=== PATIENT | male | born 1960 | race Caucasian/White ===

== ENCOUNTER 2016-10-09 12:13 | Inpatient (IN) | payer MEDICAID ==
[~2016-10-09] VITALS: Ht 182.9 cm; Wt 94.3 kg
[~2016-10-09 12:13] MED LIST: AMIO200T2 PO; ASPI-482 PO; DIGO125T PO; LISI-338 PO; METF500T4 PO; METH4TAB6 PO; METO100T2 PO; METO50TA10 PO; SPIR25TA3 PO; TIZA4TAB PO; insulin 70/30 SQ
--- NOTE | 2016-10-09 13:21 | RAD ---
Left rib series with single view chest 10/09/2016 at 1254 hours Indication: Fall and rib pain Comparison: Chest radiograph 09/25/2016 Technique: Single view of the chest and 4 views of the left ribs are provided. Findings: Median sternotomy changes are present. Cardiac valvular prosthesis is noted. Cardiomediastinal silhouette is within normal limits. No pleural effusions, pulmonary vascular congestion or pneumothorax. The lungs are clear. Mildly displaced acute rib fractures involving the anterior left eighth and ninth ribs. Impression: Mildly displaced acute rib fractures involving anterior left eighth and ninth ribs. No pneumothorax.
--- NOTE | 2016-10-09 13:24 | RAD ---
Thoracic spine radiograph 10/09/2016 at 1258 hours Indication: Trauma, fall Comparison: None available Technique: 3 views of the thoracic spine are provided. Findings: Alignment of the thoracic spine is normal. There is minimal height loss involving the suspected T6 vertebral body. Visualized portions of the lungs are clear. Impression: Minimal height loss involving suspected T6 vertebral body, suspicious for a superior endplate compression deformity of uncertain chronicity. Recommend correlation with site of point tenderness.
[2016-10-09] MEDS ORDERED: MORPHINE SULFATE 4 MG/ML DISP.SYRIN. IV/SQ PRN (14:00)
--- NOTE | 2016-10-09 14:28 | ACF ---
Admit Criteria Forms Admit Criteria Forms Admit Criteria Forms MUSCULOSKELETAL DISEASE GRG Clinical Indications for Admission to Inpatient Care (Place 'X' for any and all applicable criteria): Hospital admission is needed for appropriate care of the patient because of 1 or more of the following: [X ]I. Fracture, dislocation, or other musculoskeletal injury requiring inpatient care(medical) as indicated by 1 or more of the following(4)(5)(6)(7) [ ]a) Vertebral fracture requiring observation for instability or neurologic compromise (8) [ ]b) Compartment syndrome (proven or cannot be ruled out during observation level of care) (9) [ ]c) Limb-threatening injury [ ]d) Major injury requiring inpatient stabilization such as traction initiation or external fixation before internal fixation or closure of complex or open fracture [ ]e) Major injury requiring inpatient treatment after emergency or observation level care (as appropriate) [X ]f) Severe pain requiring acute inpatient management [ ]g) Injury with suspicion of abuse or neglect (eg., child, dependent elderly) [ ]II. Newly diagnosed or suspected bone, joint, or orthopedic device infection (e.g., osteomyelitis, septic arthritis) needing 1 or more of the following(1)(2)(3) [ ]a) IV antibiotics that cannot be initiated in other than inpatient setting (e.g., patient too unstable or home infusion not available) [ ]b) Device removal or replacement [ ]c) Bone or soft tissue debridement [ ]d) Joint drainage (drain placement or repetitive aspirations) [ ]III. Severe rheumatologic disease (e.g., systemic lupus erythematosus, rheumatoid arthritis) with complications or comorbidities (Also use Optimal Recovery Care Criteria or General Recovery Criteria as appropriate on the basis of predominant condition), including 1 or more of the following( 10)(11)(12)(13) [ ]a) Severe infection (e.g., [employer]GEMENT infection, sepsis) (14) [ ]b) Respiratory complications, including 1 or more of the following : [ ]i) Pleural effusion with respiratory compromise [ ]ii) Pulmonary hypertension with congestive failure [ ]iii) Respiratory failure [ ]iv) Pulmonary hemorrhage (15) [ ]c) Hematologic disease, including 1 or more of the following: [ ]i) Coagulopathy with bleeding [ ]ii) Thrombosis with hypercoagulable state [ ]iii) Thrombotic thrombocytopenic purpura [ ]d) Cerebritis with seizures, psychosis, or other severe abnormalities [ ]e) Vertebral destruction with monitoring needed for cervical myelopathy& possible respiratory compromise [ ]f) Exacerbation that requires inpatient treatment (e.g., intravenous immunosuppression) (16) [ ]g) Acute renal failure [ ]h) Cerebritis with seizures, psychosis, Altered mental status, or other neurologic abnormalities [ ]i) Pericardial effusion with tamponade [ ]j) Vertebral destruction, with monitoring needed for cervical myelopathy and possible respiratory compromise [ ]IV. Severe vasculitis with complications or comorbidities (Also use Optimal Recovery Care Criteria General Recovery Criteria as appropriate on the basis of predominant condition), including 1 or more of the following(11)(12)(17)(18)(19)(20) [ ]a) Exacerbation that requires inpatient treatment (e.g., intravenous immunosuppression) (19)(21) [ ]b) Pulmonary hemorrhage (15) [ ]c) [employer] vasculitis with seizures, psychosis, Altered mental status that is severe or persistent, or other severe abnormalities (22) [ ]d) Cerebral infarction [ ]e) Gastrointestinal ischemia [ ]f) Gangrene or threatened amputation [ ]g) Renal failure (16) [ ]h) Other significant complications of vasculitis ( eg., tissue or organ ischemia, organ dysfunction ) [ ]V. Severe myopathy as indicated by 1 or more of the following (28)(29) [ ]a) New onset of airway compromise or inability to swallow [ ]b) Respiratory deterioration with observation needed for impending respiratory failure [ ]c) Exacerbation that requires inpatient treatment (e.g., intravenous immunosuppression) [ ]. Severe crystal gout (arthropathy) indicated by 1 or more of the following (23)(24) [ ]a) Severe pain requiring acute inpatient management [ ]b) Exacerbation that requires inpatient treatment (e.g., intravenous treatment) [ ]VII.Rhabdomyolysis and 1 or more of the following (25)(26)(27) [ ]a) Acute renal failure [ ]b) Need for intravenous hydration after emergency or observation level care (as appropriate) [ ]c) Inability to maintain oral hydration [ ]d) Change in mental status [ ]e) Electrolyte abnormality that remains after emergency or observation level care (as appropriate) [ ]VIII Post amputation complication, as indicated by ANY ONE of the following [ ]a) Infection [ ]b) Dehiscence [ ]c) Myodesis failure [ ]IX. Severe pain requiring acute inpatient management due to musculoskeletal condition [ ]X. Musculoskeletal Disease and ALL of the following: [ ]a) Symptom or finding for which emergency and observation care have failed or are not considered appropriate (Use General Criteria: Observation Care as appropriate) [ ]b) Presence of ANY ONE of the following [ ]i) A General Admission Criteria [ ]ii) A Pediatric General Admission Criteria The original [email or web address] content created by [facility] has been revised. The portions of the content which have been revised are identified through the use of italic text or in bold, and [facility] has neither reviewed nor approved the modified material. All other unmodified content is copyright [facility]. Please see references footnoted in the original [email or web address] edition 2016 AUDRA MINA Oct 09, 2016 14:28
[2016-10-09 14:44] LABS: BASO # 0.1 x10^3/uL (0.0-0.2); BASO % 0 % (0-3); EOS % 2 % (0-3); HEMATOCRIT 50.9 % (39.0-53.0); LYMPH # 1.7 x10^3/uL (1.0-4.8); LYMPH % 13 % (24-48); MEAN CORPUSCULAR HEMOGLOBIN 31 pg (25-35); MEAN CORPUSCULAR HGB CONC 33 g/dL (31-37); MEAN CORPUSCULAR VOLUME 92 fL (79-100); MONO % 6 % (0-9); NEUT % 79 % (31-73); PLATELET COUNT 255 x10^3/uL (140-400); RED BLOOD COUNT 5.53 x10^6/uL (4.30-5.70); RED CELL DISTRIBUTION WIDTH 14.6 % (11.5-14.5); WHITE BLOOD COUNT 13.1 x10^3/uL (4.0-11.0)
[2016-10-09] MEDS ORDERED: ONDANSETRON PF 4 MG/2 ML VIAL. IV PRN (15:00)
[2016-10-09] MEDS ORDERED: ACETAMINOPHEN 325 MG TABLET. PO PRN (15:00)
[2016-10-09 15:04] LABS: CALCIUM 8.8 mg/dL (8.5-10.1); CREATININE 1.3 mg/dL (0.7-1.3); GFR 57.5; POTASSIUM 5.5 mmol/L (3.5-5.1)
[2016-10-09 15:10] LABS: ALBUMIN/GLOBULIN RATIO 0.8 (1.0-1.7); TOTAL BILIRUBIN 0.4 mg/dL (0.2-1.0); TOTAL PROTEIN 6.6 g/dL (6.4-8.2)
[2016-10-09] MEDS: MORPHINE SULFATE 4 MG/ML DISP.SYRIN. IV PRN ×4 (16:45→23:34)
--- NOTE | 2016-10-09 17:20 | PHYS DOC ---
Past Medical History Past Medical History: CAD, Diabetes-Type II, Hypertension, [place] Past Surgical History: Coronary Bypass Surgery, Tonsillectomy Alcohol Use: None Drug Use: Marijuana Adult General Chief Complaint Chief Complaint: RIB PAIN HPI HPI Patient is a 55 year old male who presents with rib pain after a fall. The patient states he slipped & fell in the bathtub today. No lightheadedness or syncope, no head trauma or loss of consciousness. He complains of left sided rib pain worse with deep breathing but not having shortness of breath. Also complains of upper back pain. Review of Systems Review of Systems Constitutional: Denies fever or chills Eyes: Denies change in visual acuity HENT: Denies nasal congestion or sore throat Respiratory: Denies cough or shortness of breath Cardiovascular: Denies chest pain GI: Denies abdominal pain, nausea, vomiting, or diarrhea : Denies dysuria or hematuria Musculoskeletal: Reports rib pain and back pain Integument: Denies rash or skin lesions Neurologic: Denies headache, focal weakness or sensory changes Allergies Allergies Allergies Coded Allergies Type Severity Reaction Last Updated Verified No Known Drug Allergies 09/25/16 No Physical Exam Physical Exam Constitutional: Well developed, well nourished, no acute distress, non-toxic appearance. HENT: Normocephalic, atraumatic, bilateral external ears normal, oropharynx moist, nose normal. Eyes: PERRLA, EOMI, conjunctiva normal, no discharge. Neck: supple, no stridor. no midline c-spine tenderness. Cardiovascular: RRR, no murmurs, no edema. Lungs & Thorax: LCTAB, no wheezing, no respiratory distress. Left anterior/ lateral chest wall tenderness without crepitus, step offs, ecchymosis. Abdomen: soft, nontender, nondistended. Skin: Warm, dry, no erythema, no rash. Back: mid to lower thoracic spine tenderness without step offs. Extremities: No tenderness, no edema. Neurologic: Alert and oriented X 3, symmetric strength & sensation to UE & LE, no focal deficits noted. Psychologic: Affect normal, judgement normal, mood normal. Current Patient Data Vital Signs Vital Signs Date Time Temp Pulse Resp B/P (MAP) Pulse Ox O2 Delivery O2 Flow Rate FiO2 10/09/16 12:35 97.8 59 18 95 Room Air 97.8 EKG EKG [] Radiology/Procedures Radiology/Procedures PROCEDURE: RIBS LEFT AND PA CHEST Left rib series with single view chest 10/09/2016 at 1254 hours Indication: Fall and rib pain Comparison: Chest radiograph 09/25/2016 Technique: Single view of the chest and 4 views of the left ribs are provided. Findings: Median sternotomy changes are present. Cardiac valvular prosthesis is noted. Cardiomediastinal silhouette is within normal limits. No pleural effusions, pulmonary vascular congestion or pneumothorax. The lungs are clear. Mildly displaced acute rib fractures involving the anterior left eighth and ninth ribs. Impression: Mildly displaced acute rib fractures involving anterior left eighth and ninth ribs. No pneumothorax. DICTATED and SIGNED BY: BRITTANY CASAS MD DATE: 10/09/16 1316 PROCEDURE: THORACIC SPINE 3V Thoracic spine radiograph 10/09/2016 at 1258 hours Indication: Trauma, fall Comparison: None available Technique: 3 views of the thoracic spine are provided. Findings: Alignment of the thoracic spine is normal. There is minimal height loss involving the suspected T6 vertebral body. Visualized portions of the lungs are clear. Impression: Minimal height loss involving suspected T6 vertebral body, suspicious for a superior endplate compression deformity of uncertain chronicity. Recommend correlation with site of point tenderness. DICTATED and SIGNED BY: BRITTANY CASAS MD DATE: 10/09/16 1319 [] Course & Med Decision Making Course & Med Decision Making Pertinent Labs and Imaging studies reviewed. (See chart for details) The patient presents with rib pain and back pain after mechanical fall. Blood pressure initially slightly low on arrival. Hold off pain medication until it was stabilized. It improved to low normal range without any intervention. Imaging demonstrates rib fractures and thoracic spine compression fracture. His pain was poorly controlled. Recommended admission to the hospital for further treatment and incentive spirometry. Patient agrees with plan of care. Discussed with Dr. Nielson who agrees to admit to inpatient status, trauma consult to Dr. Tripp. The patient is being admitted in stable condition. [] Dragon Disclaimer Dragon Disclaimer This electronic medical record was generated, in whole or in part, using a voice recognition dictation system. Departure Departure Impression: Primary Impression: Ribs, multiple fractures Additional Impression: Compression fx, thoracic spine Disposition: ADMITTED INPATIENT Condition: STABLE Problem Qualifiers HILLARY GALLAGHER MD Oct 09, 2016 17:20
[2016-10-09 18:00] VITALS: BP 102/60
[2016-10-09 18:06] LABS: BILIRUBIN,URINE NEGATIVE (NEG); GLUCOSE,URINE >=1000 mg/dL (NEG); NITRITE,URINE NEGATIVE (NEG); PH,URINE 5.5; PROTEIN,URINE NEGATIVE (NEG-TRACE); UROBILINOGEN,URINE 0.2 mg/dL (0.2 mg/dL)
[2016-10-09 18:25] LABS: BACTERIA,URINE FEW /HPF (0-FEW); RBC,URINE 0 /HPF (0-2); SQUAMOUS EPITHELIAL CELL,UR OCC /LPF
[2016-10-09 19:10] VITALS: BP 107/71
--- NOTE | 2016-10-09 20:27 | HP ---
ADMIT DATE: 10/09/2016 CHIEF COMPLAINT: Fall with back pain and rib pain. HISTORY OF PRESENT ILLNESS: The patient is a pleasant 55-year-old male who fell in his ____. He presented to the ER complaining of severe pain. He has some lightheadedness. He tried taking some home pain meds, but that did not work. He is short of breath. We did some x-rays. He has got rib fractures and compression fractures. The patient is being admitted for pain management. I am also going to consult Interventional Radiology to consider a kyphoplasty. PAST MEDICAL HISTORY: CAD, diabetes, hypertension, myocardial infarction, 3-vessel bypass, tonsillectomy. ALLERGIES: None. FAMILY HISTORY: Coronary disease. SOCIAL HISTORY: He is retired. He does not drink, smoke or take drugs. MEDICATIONS: Reviewed, please refer to the MRAD. REVIEW OF SYSTEMS: GENERAL: No history of weight change, weakness or fevers. SKIN: No bruising, hair changes or rashes. EYES: No blurred, double or loss of vision. NOSE AND THROAT: No history of nosebleeds, hoarseness or sore throat. HEART: No history of palpitations, chest pain or shortness of breath on exertion. LUNGS: Denies cough, hemoptysis, wheezing or shortness of breath. GASTROINTESTINAL: Denies changes in appetite, nausea, vomiting, diarrhea or constipation. GENITOURINARY: No history of frequency, urgency, hesitancy or nocturia. NEUROLOGIC: Denies history of numbness, tingling, tremor or weakness. PSYCHIATRIC: No history of panic, anxiety or depression. ENDOCRINE: No history of heat or cold intolerance, polyuria or polydipsia. EXTREMITIES: Denies muscle weakness, joint pain, pain on walking or stiffness. MUSCULOSKELETAL: He complains of back pain and rib pain. PHYSICAL EXAMINATION: VITAL SIGNS: Temperature afebrile, pulse 92, respirations 18, blood pressure 144/60. GENERAL: He is alert, cooperative. His is present. She is a good support for him. HEART: Normal S1, S2. LUNGS: Clear, but diminished. ABDOMEN: Soft, positive bowel sounds. EXTREMITIES: Trace edema. SKIN: No obvious rashes. PSYCHIATRIC: He is a little anxious. VASCULAR: Good capillary refill. ENDOCRINE: No thyromegaly. LABORATORY DATA: Reviewed. ASSESSMENT AND PLAN: Fall with compression fractures and rib fractures. The patient is being admitted. We will give him pain meds, physical therapy, occupational therapy. Consult Dr. Grey, Interventional Radiology to consider kyphoplasty. Home meds, p.r.n. narcotics. [place] DO DR: WERNER/adal JOB#: [id number] / [id number]
[2016-10-09] MEDS: METOPROLOL TART IMMED RELEASE 50 MG TABLET. PO SCH (20:36)
[2016-10-09] MEDS: INSULN ASP PRT/INSULIN ASPART 300 UNITS/3 ML INSULN.PEN. SQ SCH ×2 (21:00→21:33)
[2016-10-09] MEDS: tiZANidine 4 MG TABLET. PO SCH (21:10)
[2016-10-09 23:05] VITALS: BP 115/79
[2016-10-10] VITALS (8 sets, daily range): BP systolic 81–135; BP diastolic 52–97
[2016-10-10] MEDS: MORPHINE SULFATE 4 MG/ML DISP.SYRIN. IV PRN ×2 (02:03→09:20)
[2016-10-10] MEDS: HYDROcodone/APAP 10/325 1 TAB TABLET PO PRN ×2 (04:42→09:05)
[2016-10-10] MEDS ORDERED: ASPIRIN ENTERIC COATED 81 MG TABLET.DR. PO SCH (09:00)
[2016-10-10] MEDS: tiZANidine 4 MG TABLET. PO SCH ×3 (09:05→20:28)
[2016-10-10] MEDS: LISINOPRIL 5 MG TABLET. PO SCH (09:05)
[2016-10-10] MEDS: DIGOXIN 125 MCG TABLET. PO SCH (09:06)
[2016-10-10] MEDS: SPIRONOLACTONE 25 MG TABLET PO SCH (09:06)
[2016-10-10] MEDS: METOPROLOL TART IMMED RELEASE 50 MG TABLET. PO SCH ×2 (09:07→20:25)
[2016-10-10] MEDS: metFORMIN 500 MG TABLET PO SCH ×2 (09:07→17:07)
--- NOTE | 2016-10-10 09:10 | PDOC ---
PROGRESS NOTES Chief Complaint Chief Complaint Fall with compression fractures and rib fractures ASSESSMENT AND PLAN: 1. Compression fx: VIR consult 2. Pain control: acute rib fx 8/9 L; states he has a high medication need ( taking 8 tylenol for SERNA). PO narcotics as needed 3. DM2: improved since admit. ?compliance at home. 4. Afib/flutter: well controlled on home meds and dig as per cardiology team. 5. CAD: hx CABG; no acute issues. cont home meds. Has follow up with primary tail puller 10/16/16. 6. Multisubstance abuse: UDS positive for meth and marijuana 7. Malnutrition: mild-mod. nutrition consult 8. Dispo: home post poss kyphoplasty History of Present Illness History of Present Illness c/o severe pain while sitting on edge of bed, crooked, drawing pictures. moaning in pain with movement Vitals Vitals Vital Signs Date Time Temp Pulse Resp B/P (MAP) Pulse Ox O2 Delivery O2 Flow Rate FiO2 10/10/16 07:00 98.8 68 20 135/93 (107) 100 Room Air 98.8 Physical Exam General: Alert, Cooperative, No acute distress Heart: Other (irreg) Lungs: Clear Abdomen: Normal bowel sounds, No tenderness Extremities: No clubbing, No edema Labs LABS Laboratory Tests Test 10/09/16 14:30 10/09/16 17:45 10/09/16 21:18 10/10/16 07:18 White Blood Count 13.1 x10^3/uL (4.0-11.0) Red Blood Count 5.53 x10^6/uL (4.30-5.70) Hemoglobin 17.0 g/dL (13.0-17.5) Hematocrit 50.9 % (39.0-53.0) Mean Corpuscular Volume 92 fL (79-100) Mean Corpuscular Hemoglobin 31 pg (25-35) Mean Corpuscular Hemoglobin Concent 33 g/dL (31-37) Red Cell Distribution Width 14.6 % (11.5-14.5) Platelet Count 255 x10^3/uL (140-400) Neutrophils (%) (Auto) 79 % (31-73) Lymphocytes (%) (Auto) 13 % (24-48) Monocytes (%) (Auto) 6 % (0-9) Eosinophils (%) (Auto) 2 % (0-3) Basophils (%) (Auto) 0 % (0-3) Neutrophils # (Auto) 10.3 x10^3uL (1.8-7.7) Lymphocytes # (Auto) 1.7 x10^3/uL (1.0-4.8) Monocytes # (Auto) 0.8 x10^3/uL (0.0-1.1) Eosinophils # (Auto) 0.2 x10^3/uL (0.0-0.7) Basophils # (Auto) 0.1 x10^3/uL (0.0-0.2) Sodium Level 137 mmol/L (136-145) Potassium Level 5.5 mmol/L (3.5-5.1) Chloride Level 102 mmol/L (98-107) Carbon Dioxide Level 30 mmol/L (21-32) Anion Gap 5 (6-14) Blood Urea Nitrogen 23 mg/dL (8-26) Creatinine 1.3 mg/dL (0.7-1.3) Estimated GFR (Cockcroft-Gault) 57.5 BUN/Creatinine Ratio 18 (6-20) Glucose Level 347 mg/dL (70-99) Calcium Level 8.8 mg/dL (8.5-10.1) Total Bilirubin 0.4 mg/dL (0.2-1.0) Aspartate Amino Transf (AST/SGOT) 25 U/L (15-37) Alanine Aminotransferase (ALT/SGPT) 101 U/L (16-63) Alkaline Phosphatase 136 U/L (46-116) Total Protein 6.6 g/dL (6.4-8.2) Albumin 3.0 g/dL (3.4-5.0) Albumin/Globulin Ratio 0.8 (1.0-1.7) Urine Collection Type Void Urine Color Yellow Urine Clarity Clear Urine pH 5.5 Urine Specific Chaplin >=1.030 Urine Protein Negative mg/dL (NEG-TRACE) Urine Glucose (UA) >=1000 mg/dL (NEG) Urine Ketones (Stick) Negative mg/dL (NEG) Urine Blood Negative (NEG) Urine Nitrite Negative (NEG) Urine Bilirubin Negative (NEG) Urine Urobilinogen Dipstick 0.2 mg/dL (0.2 mg/dL) Urine Leukocyte Esterase Negative (NEG) Urine RBC 0 /HPF (0-2) Urine WBC 1-4 /HPF (0-4) Urine Squamous Epithelial Cells Occ /LPF Urine Bacteria Few /HPF (0-FEW) Urine Mucus Slight /LPF Glucose (Fingerstick) 234 mg/dL (70-99) 81 mg/dL (70-99) BC BRITTON MD Oct 10, 2016 09:10
[2016-10-10] MEDS: INSULN ASP PRT/INSULIN ASPART 300 UNITS/3 ML INSULN.PEN. SQ SCH ×2 (09:15→20:29)
[2016-10-10] MEDS: AMIODARONE HCL 200 MG TABLET. PO SCH (09:19)
[2016-10-10] MEDS: NICOTINE 21MG PATCH. TD SCH (09:20)
--- NOTE | 2016-10-10 10:34 | PDOC2 ---
MANSI CASTILLO TECHNICAL OPERATIONS MANAGER 10/10/16 1034: CARDIAC CONSULT DATE OF CONSULT Date of Consult DATE: 10/10/16 TIME: 10:26 REASON FOR CONSULT Reason for Consult: A-flutter Hypotension REFERRING PHYSICIAN Referring Physician: Dr. Rayo SOURCE Source: Chart review, Patient HISTORY OF PRESENT ILLNESS HISTORY OF PRESENT ILLNESS this is a 55 yo male who presented with complaints of rib pain secondary to fall. Report that he slipped and fell in the shower. No dizziness, lightheadedness, syncope, chest pain, SOA, or LOC. Rib X-ray noted with fracture of anterior left eighth and ninth ribs. Was noted to be hypotensive and in atrial flutter, which prompted this consult. H/o CAD with CABG with left atrial appendage resection in 2014 at [facility]. Recent admission was noted to be in atrial flutter with RVR. Initiated on Digoxin for rate control. Metoprolol and Amiodarone continued. Patient was encourage to abstain from recreational drug use; UDS presently positive for meth and marijuana. Reports compliance with medications. Has follow up with primary analysis analyst 10/16/16. PAST MEDICAL HISTORY Past Medical History Cardiovascular: CAD, HTN, Hyperlipidemia, Other (PAD), atrial flutter Pulmonary: Bronchitis CENTRAL NERVOUS SYSTEM: Peripheral neuropathy GI: Other (Rectal bleed? 04/2016) Heme/Onc: No pertinent hx Hepatobiliary: No pertinent hx Psych: Anxiety, addictions Musculoskeletal: Osteoarthritis Rheumatologic: No pertinent hx Infectious disease: No pertinent hx ENT: No pertinent hx Renal/: No pertinent hx Endocrine: Diabetes (2) PAST SURGICAL HISTORY Past Surgical History CABG (x4 in 2014), Other (right hand surgery) FAMILY HISTORY Family History: Coronary Artery Disease SOCIAL HISTORY Social History Smoke: No ALCOHOL: occasional Drugs: Marijuana, Meth Lives: with Family CURRENT MEDICATIONS CURRENT MEDICATIONS Current Medications Medications (Trade) Dose Ordered Sig/Doris Route PRN Reason Start Time Stop Time Status Last Admin Dose Admin Morphine Sulfate 2 mg PRN Q15MIN PRN IV/SQ PAIN GREATER THAN 3/10 10/09/16 14:00 10/09/16 19:13 DC 10/09/16 14:36 Morphine Sulfate 4 mg PRN Q2HR PRN IV PAIN 10/09/16 15:00 10/10/16 14:59 10/10/16 09:20 Amiodarone HCl (Cordarone) 200 mg DAILY PO 10/10/16 09:00 10/10/16 09:19 Aspirin (Ecotrin) 81 mg DAILY PO 10/10/16 09:00 10/10/16 09:06 Digoxin (Lanoxin) 125 mcg DAILY PO 10/10/16 09:00 10/10/16 09:06 Lisinopril (Prinivil) 5 mg DAILY PO 10/10/16 09:00 10/10/16 09:05 Metformin HCl (Glucophage) 500 mg BIDWMEALS PO 10/10/16 08:00 10/10/16 09:07 Spironolactone (Aldactone) 25 mg DAILY PO 10/10/16 09:00 10/10/16 09:06 Tizanidine HCl (Zanaflex) 2 mg TID PO 10/09/16 21:00 10/10/16 09:05 Metoprolol Tartrate (Lopressor) 100 mg BID PO 10/09/16 21:00 10/10/16 09:07 Insulin Aspart Prota 70%/Aspart 30% (Novolog Mix 70-30) 50 units BID SQ 10/09/16 20:45 10/10/16 09:15 Acetaminophen/ Hydrocodone Bitart (Lortab 10/325) 1 tab PRN Q4HRS PRN PO SEVERE PAIN 10/10/16 04:15 10/10/16 09:05 Nicotine (Nicoderm Cq 21mg) 1 patch DAILY TD 10/10/16 09:00 10/10/16 09:20 ALLERGIES ALLERGIES: Coded Allergies: No Known Drug Allergies (Unverified , 09/25/16) ROS Review of System 14 point ROS conducted with pertinent positives noted above in HPI. PHYSICAL EXAM PHYSICAL EXAM General: Alert, Oriented X3, Cooperative, No acute distress HEENT: Atraumatic, Mucous membr. moist/pink Lungs: Other (faint basilar crackles), left chest tenderness. Heart: Other (tele: atrial flutter with controlled rate) Abdomen: Soft, No tenderness Extremities: No cyanosis, No edema Skin: No breakdown, No significant lesion Neuro: Normal speech, Sensation intact Psych/Mental Status: Mental status NL, Mood NL MUSCULOSKELETAL: Osteoarthritic changes both hands VITALS VITALS Vital Signs Date Time Temp Pulse Resp B/P (MAP) Pulse Ox O2 Delivery O2 Flow Rate FiO2 10/10/16 09:37 68 12 133/88 (103) 100 Room Air 10/10/16 07:00 98.8 98.8 LABS Lab: Laboratory Tests Test 10/09/16 14:30 10/09/16 17:45 10/09/16 21:18 10/10/16 07:18 White Blood Count 13.1 x10^3/uL (4.0-11.0) Red Blood Count 5.53 x10^6/uL (4.30-5.70) Hemoglobin 17.0 g/dL (13.0-17.5) Hematocrit 50.9 % (39.0-53.0) Mean Corpuscular Volume 92 fL (79-100) Mean Corpuscular Hemoglobin 31 pg (25-35) Mean Corpuscular Hemoglobin Concent 33 g/dL (31-37) Red Cell Distribution Width 14.6 % (11.5-14.5) Platelet Count 255 x10^3/uL (140-400) Neutrophils (%) (Auto) 79 % (31-73) Lymphocytes (%) (Auto) 13 % (24-48) Monocytes (%) (Auto) 6 % (0-9) Eosinophils (%) (Auto) 2 % (0-3) Basophils (%) (Auto) 0 % (0-3) Neutrophils # (Auto) 10.3 x10^3uL (1.8-7.7) Lymphocytes # (Auto) 1.7 x10^3/uL (1.0-4.8) Monocytes # (Auto) 0.8 x10^3/uL (0.0-1.1) Eosinophils # (Auto) 0.2 x10^3/uL (0.0-0.7) Basophils # (Auto) 0.1 x10^3/uL (0.0-0.2) Sodium Level 137 mmol/L (136-145) Potassium Level 5.5 mmol/L (3.5-5.1) Chloride Level 102 mmol/L (98-107) Carbon Dioxide Level 30 mmol/L (21-32) Anion Gap 5 (6-14) Blood Urea Nitrogen 23 mg/dL (8-26) Creatinine 1.3 mg/dL (0.7-1.3) Estimated GFR (Cockcroft-Gault) 57.5 BUN/Creatinine Ratio 18 (6-20) Glucose Level 347 mg/dL (70-99) Calcium Level 8.8 mg/dL (8.5-10.1) Total Bilirubin 0.4 mg/dL (0.2-1.0) Aspartate Amino Transf (AST/SGOT) 25 U/L (15-37) Alanine Aminotransferase (ALT/SGPT) 101 U/L (16-63) Alkaline Phosphatase 136 U/L (46-116) Total Protein 6.6 g/dL (6.4-8.2) Albumin 3.0 g/dL (3.4-5.0) Albumin/Globulin Ratio 0.8 (1.0-1.7) Urine Collection Type Void Urine Color Yellow Urine Clarity Clear Urine pH 5.5 Urine Specific [place] >=1.030 Urine Protein Negative mg/dL (NEG-TRACE) Urine Glucose (UA) >=1000 mg/dL (NEG) Urine Ketones (Stick) Negative mg/dL (NEG) Urine Blood Negative (NEG) Urine Nitrite Negative (NEG) Urine Bilirubin Negative (NEG) Urine Urobilinogen Dipstick 0.2 mg/dL (0.2 mg/dL) Urine Leukocyte Esterase Negative (NEG) Urine RBC 0 /HPF (0-2) Urine WBC 1-4 /HPF (0-4) Urine Squamous Epithelial Cells Occ /LPF Urine Bacteria Few /HPF (0-FEW) Urine Mucus Slight /LPF Glucose (Fingerstick) 234 mg/dL (70-99) 81 mg/dL (70-99) ECHOCARDIOGRAM ECHOCARDIOGRAM <Conclusion> Left ventricle systolic function is moderately to severely impaired. The Ejection Fraction is 25-30%. There is severe global hypokinesis with akinesis of the mid to distal infero- septum, inferior wall and apex. There is mild mitral valve stenosis. Mean pressure gradient of 6.0 mmHg. DATE: 09/26/16 1652 ASSESSMENT/PLAN ASSESSMENT/PLAN 1. Atrial flutter; rate controlled 2. Hypotension; resolved. 3. CAD s/p CABG in 2014 4. Chronic systolic HF with ICM; LVEF 25-30%; compensated 5. Diabetes; BG optimization per PCP 6. Hyperlipidemia; statin 7. Rib fractures 8. Substance abuse. Recommendations Continue digoxin, Amiodarone, and metoprolol No OAC necessary as patient had left atrial appendage resection with his CABG. Continue on ASA. Discussed/encouraged abstinence of recreational drugs. Continue with secondary prevention No further cardiac workup warranted. Patient to f/u with routine analysis analyst as previously scheduled. Problems: MILLY VILLEGAS MD 10/11/16 1138: CARDIAC CONSULT ALLERGIES ALLERGIES: Coded Allergies: No Known Drug Allergies (Unverified , 09/25/16) ASSESSMENT/PLAN ASSESSMENT/PLAN Patient seen and examined 10/10/16. Agree with INTEGRATED CIRCUIT IC LAYOUT DESIGNER's assessment and plan. Atrial flutter rate well-controlled. Hypotension resolved. CAD status stable. Recent 2-D echo results noted above. Chronic systolic heart failure clinically well compensated. Continue current medical regimen. Thank you for your consultation. Problems: MANSI CASTILLO APRN Oct 10, 2016 10:34 MILLY VILLEGAS MD Oct 11, 2016 11:38
[2016-10-10] MEDS ORDERED: oxyCODONE/APAP 5/325 1 TAB TABLET PO PRN ×2 (11:00)
[2016-10-10 11:19] LABS: BASO % 0 % (0-3); EOS % 1 % (0-3); HEMATOCRIT 47.3 % (39.0-53.0); LYMPH # 1.1 x10^3/uL (1.0-4.8); LYMPH % 10 % (24-48); MEAN CORPUSCULAR HEMOGLOBIN 31 pg (25-35); MEAN CORPUSCULAR HGB CONC 34 g/dL (31-37); MEAN CORPUSCULAR VOLUME 92 fL (79-100); MONO % 6 % (0-9); NEUT % 82 % (31-73); PLATELET COUNT 187 x10^3/uL (140-400); RED BLOOD COUNT 5.14 x10^6/uL (4.30-5.70); RED CELL DISTRIBUTION WIDTH 14.7 % (11.5-14.5); WHITE BLOOD COUNT 10.7 x10^3/uL (4.0-11.0)
[2016-10-10 11:31] LABS: ALBUMIN 2.8 g/dL (3.4-5.0); ALBUMIN/GLOBULIN RATIO 0.8 (1.0-1.7); CREATININE 0.8 mg/dL (0.7-1.3); GFR 100.7; POTASSIUM 4.7 mmol/L (3.5-5.1); TOTAL BILIRUBIN 0.5 mg/dL (0.2-1.0); TOTAL PROTEIN 6.2 g/dL (6.4-8.2)
--- NOTE | 2016-10-10 12:13 | PDOC2 ---
Consult: VIR Consult: S: 56 yo with a ground-level fall in a bathtub yesterday resulting in severe back pain and left sided rib pain. X-rays suggest T6 compression fracture and left 8th and 9th lateral rib fractures. Pt. states new onset radiculopathy to the knee on the left. Hx of severe bilateral LE diabetic neuropathy which is asymmetric L > R. No LE weakness. Pain is worse with movements, particularly with coughing. No hx of osteoporosis, hypogonadism or chronic steroid use, though he has completed two medrol dose paks in the past couple of months. Hx of 4 vessel CABG and heart valve surgery several years ago. He has no primary care physician. O: Afebrile, A & O x 3, NAD. No TTP at spinous processes. Severely reduced spinal range of motion. Bilateral LE strength 4/5 symmetrical for flexion and extension. Dysesthesia with light touch on the plantar surface of the right foot. A: T6 debilitation compression fracture s/p ground level fall with new onset radiculopathy. Rib fxs. DM. Peripheral neuropathy. Recommendations: MRI of the thoracic spine to better characterize compression fracture, canal stenosis and possible nerve root impingement. Patient may be a candidate for kyphoplasty tbd after evaluation of the MRI. Kyphoplasty unlikely to resolve radiculopathy, and may need to consult neurosurgery if MRI confirms structural abnormality. Thank you for the opportunity to participate in this gentleman's care. JOAO MORA MD Oct 10, 2016 12:13
[2016-10-10] MEDS: INSULIN ASPART 300 UNITS/3 ML INSULN.PEN SQ SCH ×2 (12:39→17:00)
[2016-10-10 16:30] LABS: INR 1.1 (0.8-1.1); PROTHROMBIN TIME PATIENT 13.2 SEC (11.7-14.0)
[2016-10-10] MEDS: oxyCODONE/APAP 5/325 1 TAB TABLET PO PRN ×2 (17:07→20:26)
[2016-10-11] MEDS: oxyCODONE/APAP 5/325 1 TAB TABLET PO PRN ×4 (00:14→13:55)
[2016-10-11] MEDS ORDERED: ONDANSETRON PF 4 MG/2 ML VIAL. IV PRN (00:15)
[2016-10-11 03:00] VITALS: BP 106/78
[2016-10-11] MEDS: DEXTROSE 50% 25 GM / 50ML DISP.SYRIN. IV PRN ×2 (03:52→04:00)
[2016-10-11 07:00] VITALS: BP 149/93
[2016-10-11] MEDS: INSULIN ASPART 300 UNITS/3 ML INSULN.PEN SQ SCH ×2 (08:00→12:00)
[2016-10-11] MEDS: INSULN ASP PRT/INSULIN ASPART 300 UNITS/3 ML INSULN.PEN. SQ SCH (09:00)
--- NOTE | 2016-10-11 09:44 | PDOC ---
PROGRESS NOTES Chief Complaint Chief Complaint Fall with compression fractures and rib fractures ASSESSMENT AND PLAN: 1. Compression fx: VIR consult awaiting MRI (helad up / ?art valve replacement 2. Pain control: acute rib fx / L; states he has a high medication need ( taking 8 tylenol for SERNA). wants IV -"and not diluted, i don't feel that". d/w him that his previous drug use is interfering with pain issues. will only get PO meds here. can change oxy to morphine PRN. 3. DM2: hypoglycemia today. hold 70/30 insulin for now. cont ISS 4. Afib/flutter: well controlled on home meds and dig as per cardiology team. 5. CAD: hx CABG; no acute issues. cont home meds. Has follow up with primary inspector fuel hose 10/16/16. 6. Multisubstance abuse: UDS positive for meth and marijuana 7. Malnutrition: mild-mod. nutrition consult 8. Dispo: home post poss kyphoplasty History of Present Illness History of Present Illness c/o severe pain, sitting on bedside, comfortable Vitals Vitals Vital Signs Date Time Temp Pulse Resp B/P (MAP) Pulse Ox O2 Delivery O2 Flow Rate FiO2 10/11/16 07:00 97.4 88 24 149/93 (111) 98 Room Air 97.4 Physical Exam General: Alert, Cooperative, No acute distress Heart: Other (irreg) Lungs: Clear Abdomen: Normal bowel sounds, No tenderness Extremities: No clubbing, No edema Labs LABS Laboratory Tests Test 10/10/16 10:45 10/10/16 11:50 10/10/16 16:14 10/10/16 17:01 White Blood Count 10.7 x10^3/uL (4.0-11.0) Red Blood Count 5.14 x10^6/uL (4.30-5.70) Hemoglobin 16.0 g/dL (13.0-17.5) Hematocrit 47.3 % (39.0-53.0) Mean Corpuscular Volume 92 fL (79-100) Mean Corpuscular Hemoglobin 31 pg (25-35) Mean Corpuscular Hemoglobin Concent 34 g/dL (31-37) Red Cell Distribution Width 14.7 % (11.5-14.5) Platelet Count 187 x10^3/uL (140-400) Neutrophils (%) (Auto) 82 % (31-73) Lymphocytes (%) (Auto) 10 % (24-48) Monocytes (%) (Auto) 6 % (0-9) Eosinophils (%) (Auto) 1 % (0-3) Basophils (%) (Auto) 0 % (0-3) Neutrophils # (Auto) 8.8 x10^3uL (1.8-7.7) Lymphocytes # (Auto) 1.1 x10^3/uL (1.0-4.8) Monocytes # (Auto) 0.7 x10^3/uL (0.0-1.1) Eosinophils # (Auto) 0.1 x10^3/uL (0.0-0.7) Basophils # (Auto) 0.0 x10^3/uL (0.0-0.2) Sodium Level 135 mmol/L (136-145) Potassium Level 4.7 mmol/L (3.5-5.1) Chloride Level 101 mmol/L (98-107) Carbon Dioxide Level 28 mmol/L (21-32) Anion Gap 6 (6-14) Blood Urea Nitrogen 21 mg/dL (8-26) Creatinine 0.8 mg/dL (0.7-1.3) Estimated GFR (Cockcroft-Gault) 100.7 BUN/Creatinine Ratio 26 (6-20) Glucose Level 197 mg/dL (70-99) Calcium Level 9.0 mg/dL (8.5-10.1) Total Bilirubin 0.5 mg/dL (0.2-1.0) Aspartate Amino Transf (AST/SGOT) 17 U/L (15-37) Alanine Aminotransferase (ALT/SGPT) 74 U/L (16-63) Alkaline Phosphatase 119 U/L (46-116) Total Protein 6.2 g/dL (6.4-8.2) Albumin 2.8 g/dL (3.4-5.0) Albumin/Globulin Ratio 0.8 (1.0-1.7) Glucose (Fingerstick) 164 mg/dL (70-99) 103 mg/dL (70-99) Prothrombin Time 13.2 SEC (11.7-14.0) Prothromb Time International Ratio 1.1 (0.8-1.1) Test 10/10/16 20:25 10/11/16 03:38 10/11/16 03:45 10/11/16 03:50 Glucose (Fingerstick) 109 mg/dL (70-99) 54 mg/dL (70-99) 53 mg/dL (70-99) 49 mg/dL (70-99) Test 10/11/16 04:00 10/11/16 04:13 10/11/16 07:49 Glucose (Fingerstick) 52 mg/dL (70-99) 114 mg/dL (70-99) 149 mg/dL (70-99) BC BRITTON MD Oct 11, 2016 09:44
[2016-10-11] MEDS ORDERED: MORPHINE IR 15 MG TABLET PO ONE (10:00)
[2016-10-11] MEDS: NICOTINE 21MG PATCH. TD SCH (10:16)
[2016-10-11] MEDS: AMIODARONE HCL 200 MG TABLET. PO SCH (10:18)
[2016-10-11] MEDS: DIGOXIN 125 MCG TABLET. PO SCH (10:18)
[2016-10-11] MEDS: LISINOPRIL 5 MG TABLET. PO SCH (10:18)
[2016-10-11] MEDS: METOPROLOL TART IMMED RELEASE 50 MG TABLET. PO SCH (10:20)
[2016-10-11] MEDS: tiZANidine 4 MG TABLET. PO SCH ×2 (10:20→15:21)
[2016-10-11] MEDS ORDERED: LORazepam 0.5 MG TABLET PO ONE (10:30)
[2016-10-11 11:00] VITALS: BP 138/87
[2016-10-11] MEDS: metFORMIN 500 MG TABLET PO SCH (13:54)
--- NOTE | 2016-10-11 13:56 | RAD ---
INDICATION: Pain after fall, possible T6 compression fracture. Right rib fractures. TECHNIQUE: Sagittal T1, sagittal T2, sagittal STIR, axial T1, and axial T2 sequences are provided. No comparison MRI is available. There are thoracic spine radiographs from 2 days earlier that were reviewed. There is motion, especially on the axial series. FINDINGS: There is no marrow edema or evidence of an acute thoracic compression fracture. Vertebral body height is relatively maintained. There is mild endplate irregularity of the superior endplate of T7 which could be sequela of mild old compression fracture or a Schmorl's node. There is no malalignment. There is no definite cord signal abnormality. The thoracic cord appears flattened and displaced ventrally at the level of T5, although evaluation is limited given motion on the study. Differential considerations would include extradural herniation of the cord, intradural arachnoid cyst displacing the cord, or potentially artifactual finding given motion. CT thoracic myelogram may be of benefit. Degenerative findings by individual level are as follows: T1-T2, T2-T3, T3-T4: There is facet hypertrophy but no canal or foraminal compromise. T5-T6: There is a disc bulge and facet hypertrophy without canal or foraminal compromise. T9-T10: There is a central protrusion without canal or foraminal compromise. T10-T11: There is a shallow right central protrusion without canal or foraminal compromise. There is also minimal facet hypertrophy. T11-T12: There is minimal facet hypertrophy without canal or foraminal compromise. IMPRESSION: 1. No evidence of an acute compression fracture. 2. Apparent ventral displacement and flattening of the cord at the level of T5. Evaluation is somewhat limited given artifact at this level. If a true finding, it could be secondary to extradural herniation of the thoracic cord. An intradural arachnoid cyst displacing the cord is a consideration as well. Given the amount of motion on this exam, this finding certainly could be artifactual. Consider post myelogram CT if further workup is required. Electronically signed by: Carlos Ramos MD (10/11/2016 1:53 PM) [id number]
[2016-10-11] MEDS: SPIRONOLACTONE 25 MG TABLET PO SCH (14:00)
--- NOTE | 2016-10-11 21:34 | DS ---
DATE OF DISCHARGE: 10/11/2016 CHIEF COMPLAINT: Fall with a compression fracture and rib fractures. HOSPITAL COURSE: The patient is a 55-year-old gentleman with diabetes, CAD and atrial flutter who presented after a mechanical fall at home with resultant rib fractures and compression fracture. He was admitted for further management, especially pain control. VIR was consulted for consideration of kyphoplasty. An MRI, however, did not reveal need for this. The patient was treated with p.o. medications with past medical history of multisubstance abuse including methamphetamines and cannabinoids. The patient was ultimately discharged on p.o. narcotics. PHYSICAL EXAMINATION: Please refer to note from 10/11/2016. DISCHARGE DIAGNOSES: Mild compression fracture and rib fractures. DISCHARGE DISPOSITION: To home. DISCHARGE CONDITION: Improved. DISCHARGE MEDICATIONS: Please refer to MAR. DISCHARGE INSTRUCTIONS: The patient will follow up with PCP. He has an appointment to follow up with his weigher packing at [facility]. BC BRITTON MD DR: TIMA/nts JOB#: [id number] / [id number] NICOLETTE
== END 2016-10-11 16:45 | disposition home or self-care (01) | DRG 184 ==
LOC: ER 12:13 → ED HOLD 13:54 → 4 NORTH 17:56
PROVIDERS: ADMIT Internal Medicine Hematology & Oncology; ATTEND Internal Medicine Hematology & Oncology
DX: S22.41XA Multiple fractures of ribs, right side, initial encounter for closed fracture (principal); S22.059A Unspecified fracture of T5-T6 vertebra, initial encounter for closed fracture; I11.0 Hypertensive heart disease with heart failure; I95.9 Hypotension, unspecified; E44.0 Moderate protein-calorie malnutrition; E11.42 Type 2 diabetes mellitus with diabetic polyneuropathy; I48.92 Unspecified atrial flutter; I50.22 Chronic systolic (congestive) heart failure; I48.91 Unspecified atrial fibrillation; I25.10 Atherosclerotic heart disease of native coronary artery without angina pectoris; W18.2XXA Fall in (into) shower or empty bathtub, initial encounter; F15.10 Other stimulant abuse, uncomplicated; F12.10 Cannabis abuse, uncomplicated; I25.5 Ischemic cardiomyopathy; E78.5 Hyperlipidemia, unspecified; F41.9 Anxiety disorder, unspecified; M19.90 Unspecified osteoarthritis, unspecified site; I25.2 Old myocardial infarction; Z95.1 Presence of aortocoronary bypass graft; Z90.89 Acquired absence of other organs; Y93.E1 Activity, personal bathing and showering; Y92.009 Unspecified place in unspecified non-institutional (private) residence as the place of occurrence of the external cause; Y99.8 Other external cause status; Z82.49 Family history of ischemic heart disease and other diseases of the circulatory system
CPT/HCPCS: 36415; 71101; 72072; 72146; 80053; 81001; 82962; 85025; 85610; 96372; G0238; J1815; J2270; J2405; J7042; 99285-25

== ENCOUNTER 2017-12-02 06:08 | Emergency (ER) | payer MEDICAID ==
[~2017-12-02] VITALS: Ht 182.9 cm; Wt 68.0 kg
[~2017-12-02 06:08] MED LIST changes: -AMIO200T2 PO; +AMIO200T4 PO; +METF500T16 PO; -METF500T4 PO; -METO100T2 PO; +METO100T7 PO; -METO50TA10 PO; +METO50TA29 PO; -SPIR25TA3 PO; +SPIR25TA5 PO
[2017-12-02 06:39] LABS: BASO % 0 % (0-3); EOS # 0.1 x10^3/uL (0.0-0.7); EOS % 2 % (0-3); HEMATOCRIT 52.3 % (39.0-53.0); HEMOGLOBIN 18.1 g/dL (13.0-17.5); LYMPH # 0.9 x10^3/uL (1.0-4.8); LYMPH % 12 % (24-48); MEAN CORPUSCULAR HEMOGLOBIN 31 pg (25-35); MEAN CORPUSCULAR HGB CONC 35 g/dL (31-37); MEAN CORPUSCULAR VOLUME 91 fL (79-100); MONO # 0.3 x10^3/uL (0.0-1.1); MONO % 5 % (0-9); NEUT # 5.8 x10^3uL (1.8-7.7); NEUT % 81 % (31-73); PLATELET COUNT 213 x10^3/uL (140-400); RED BLOOD COUNT 5.75 x10^6/uL (4.30-5.70); RED CELL DISTRIBUTION WIDTH 13.8 % (11.5-14.5); WHITE BLOOD COUNT 7.2 x10^3/uL (4.0-11.0)
[2017-12-02] MEDS ORDERED: fentaNYL PF VIAL 100 MCG/2 ML VIAL IV ONE (06:45)
[2017-12-02] MEDS ORDERED: ONDANSETRON PF 4 MG/2 ML VIAL. IM ONE (06:45)
[2017-12-02] MEDS ORDERED: FAMOTIDINE 20 MG/2 ML VIAL IVP ONE (06:45)
[2017-12-02 06:46] LABS: CALCIUM 10.4 mg/dL (8.5-10.1); CREATININE 0.9 mg/dL (0.7-1.3); GFR 87.6
[2017-12-02] MEDS: cloNIDine HCL 0.1 MG TABLET PO ONE ×2 (06:47→07:10)
[2017-12-02 06:52] LABS: ALBUMIN 4.5 g/dL (3.4-5.0); ALBUMIN/GLOBULIN RATIO 1.1 (1.0-1.7); TOTAL BILIRUBIN 0.8 mg/dL (0.2-1.0); TOTAL PROTEIN 8.5 g/dL (6.4-8.2)
[2017-12-02] MEDS ORDERED: ONDANSETRON PF 4 MG/2 ML VIAL. IV ONE (07:00)
--- NOTE | 2017-12-02 07:05 | RAD ---
Chest AP portable at 0632: Reason for examination: Abdominal pain. Comparison is made to previous study dated 09/25/2016. Pacemaker is present over the left hemithorax. Postop changes seen in the sternum. Heart size is normal. Mediastinum is unremarkable. Lung monroe are clear. No acute bony abnormalities are seen. IMPRESSION: No acute cardiopulmonary disease evident. Electronically signed by: Cee Ferreira MD (12/02/2017 7:02 AM) [id number]
--- NOTE | 2017-12-02 07:14 | PHYS DOC ---
Past Medical History Past Medical History: CAD, Diabetes-Type II, Hypertension, PA Past Surgical History: Coronary Bypass Surgery, Tonsillectomy Alcohol Use: None Drug Use: Marijuana Adult General Chief Complaint Chief Complaint: ABDOMINAL PAIN HPI HPI Patient is a 56 year old male with history of CAD, hypertension, who presents with epigastric pain onset yesterday. Epigastric pains described as sharp and burning and nonradiating. Pain is moderate to severe and worse with palpation and movement. No position of comfort. It's associated nausea without vomiting. No bloody stools dark tarry stools. No fever, chills or sweats.. No chest pain and shortness of breath. Prior cholecystectomy. Denies history of pancreatitis or peptic ulcer disease. Previous cholecystectomy. Patient is a current smoker. States he's been out of his medications for 2 days and is currently homeless. No other acute symptoms or complaints. Patient's accompanied at bedside by significant other.[] Review of Systems Review of Systems Review symptoms as per history of present illness. All other review symptoms are negative. All other systems were reviewed and found to be within normal limits, except as documented in this note. Current Medications Current Medications Current Medications Medications (Trade) Dose Ordered Sig/Doris Start Time Stop Time Status Last Admin Dose Admin Clonidine HCl (Catapres) 0.2 mg 1X ONCE 12/02/17 06:45 12/02/17 06:46 DC Famotidine (Pepcid Vial) 20 mg 1X ONCE 12/02/17 06:45 12/02/17 06:46 DC 12/02/17 06:45 20 MG Fentanyl Citrate (Fentanyl 2ml Vial) 75 mcg 1X ONCE 12/02/17 06:45 12/02/17 06:46 DC 12/02/17 06:46 75 MCG Iohexol (Omnipaque 300 Mg/ml) 75 ml 1X ONCE 12/02/17 07:30 12/02/17 07:31 DC Ondansetron HCl (Zofran) 4 mg 1X ONCE 12/02/17 07:00 12/02/17 07:01 DC 12/02/17 06:54 4 MG Allergies Allergies Allergies Coded Allergies Type Severity Reaction Last Updated Verified Penicillins Allergy Unknown 12/02/17 Yes Physical Exam Physical Exam Constitutional: Well developed, well nourished, alert discomfort secondary to pain. [] HENT: Normocephalic, atraumatic, bilateral external ears normal, oropharynx moist, no oral exudates, nose normal. [] Eyes: PERRLA, EOMI, conjunctiva normal, no discharge. [] Neck: Normal range of motion. [] Cardiovascular:Heart rate regular rhythm, no murmur [] Lungs & Thorax: Bilateral breath sounds clear to auscultation [] Abdomen: Bowel sounds normal, gastric pain, midepigastric pain/tenderness. [] Skin: Warm, dry, no erythema, no rash. [] Back: No tenderness. [] Extremities: No tenderness, no edema. [] Neurologic: Alert and oriented X 3, normal motor function, normal sensory function, no focal deficits noted. [] Psychologic: Affect normal, judgement normal, mood normal. [] Current Patient Data Vital Signs Vital Signs Date Time Temp Pulse Resp B/P (MAP) Pulse Ox O2 Delivery O2 Flow Rate FiO2 12/02/17 06:46 21 97 Room Air 12/02/17 06:10 97.6 95 183/111 (135) 97.6 Lab Values Laboratory Tests Test 12/02/17 06:20 White Blood Count 7.2 x10^3/uL (4.0-11.0) Red Blood Count 5.75 x10^6/uL (4.30-5.70) H Hemoglobin 18.1 g/dL (13.0-17.5) H Hematocrit 52.3 % (39.0-53.0) Mean Corpuscular Volume 91 fL (79-100) Mean Corpuscular Hemoglobin 31 pg (25-35) Mean Corpuscular Hemoglobin Concent 35 g/dL (31-37) Red Cell Distribution Width 13.8 % (11.5-14.5) Platelet Count 213 x10^3/uL (140-400) Neutrophils (%) (Auto) 81 % (31-73) H Lymphocytes (%) (Auto) 12 % (24-48) L Monocytes (%) (Auto) 5 % (0-9) Eosinophils (%) (Auto) 2 % (0-3) Basophils (%) (Auto) 0 % (0-3) Neutrophils # (Auto) 5.8 x10^3uL (1.8-7.7) Lymphocytes # (Auto) 0.9 x10^3/uL (1.0-4.8) L Monocytes # (Auto) 0.3 x10^3/uL (0.0-1.1) Eosinophils # (Auto) 0.1 x10^3/uL (0.0-0.7) Basophils # (Auto) 0.0 x10^3/uL (0.0-0.2) Sodium Level 139 mmol/L (136-145) Potassium Level 4.0 mmol/L (3.5-5.1) Chloride Level 98 mmol/L (98-107) Carbon Dioxide Level 32 mmol/L (21-32) Anion Gap 9 (6-14) Blood Urea Nitrogen 12 mg/dL (8-26) Creatinine 0.9 mg/dL (0.7-1.3) Estimated GFR (Cockcroft-Gault) 87.6 BUN/Creatinine Ratio 13 (6-20) Glucose Level 203 mg/dL (70-99) H Calcium Level 10.4 mg/dL (8.5-10.1) H Total Bilirubin 0.8 mg/dL (0.2-1.0) Aspartate Amino Transferase (AST) 13 U/L (15-37) L Alanine Aminotransferase (ALT) 21 U/L (16-63) Alkaline Phosphatase 134 U/L (46-116) H Troponin I Quantitative < 0.017 ng/mL (0.000-0.055) Total Protein 8.5 g/dL (6.4-8.2) H Albumin 4.5 g/dL (3.4-5.0) Albumin/Globulin Ratio 1.1 (1.0-1.7) Lipase 84 U/L (73-393) Laboratory Tests 12/02/17 06:20 Laboratory Tests 12/02/17 06:20 EKG EKG [EKG: Sinus rhythm, multiple T-wave abnormalities, rate 88, QTC 444.] Radiology/Procedures Radiology/Procedures [Chest XR: CT abd/pelvis: No acute findings per radiology report ] Course & Med Decision Making Course & Med Decision Making Pertinent Labs and Imaging studies reviewed. (See chart for details) [Patient's abdomen soft, nonsurgical and repeat evaluation. Blood pressure significantly improved with treatment of pain. Lab work, imaging, EKG reviewed and are nondiagnostic. Patient does state that he suffers from frequent episodes of constipation mixed with diarrhea. States symptoms are similar to previous episodes. Patient resting comfortably. Recommend home supportive care, watchful waiting and PCP/cardiology follow-up. Return precautions reviewed. Patient verbalizes understanding and agreement discharge instructions prior to departure.] Wes Disclaimer Dragon Disclaimer This electronic medical record was generated, in whole or in part, using a voice recognition dictation system. Departure Departure Impression: Primary Impression: Abdominal pain Disposition: 01 HOME, SELF-CARE Condition: GOOD Referrals: NO PCP (PCP) Patient Instructions: Abdominal Pain (Nonspecific) MARY MAGUIRE DO Dec 02, 2017 07:14
[2017-12-02] MEDS ORDERED: IOHEXOL 300 MG/ML 100ML VIAL. IV ONE (07:30)
--- NOTE | 2017-12-02 08:19 | EKG ---
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
--- NOTE | 2017-12-02 08:28 | RAD ---
PQRS Compliance Statement: One or more of the following individualized dose reduction techniques were utilized for this examination: 1. Automated exposure control 2. Adjustment of the mA and/or kV according to patient size 3. Use of iterative reconstruction technique CT ABD PELV W/ IV CONTRST ONLY Clinical Indication: EPIGASTRIC PAIN. Comparison: None. Technique: Helical CT imaging of the abdomen and pelvis is performed after 75 cc of Omnipaque 300 IV contrast. Oral contrast also given. Findings: Moderate atelectasis or scarring in the bilateral lower lobes. Trace right pleural fluid. Median sternotomy wires, cardiac valve prosthesis. ICD lead. Cardiac size normal. Cholecystectomy. Mild splenomegaly. Liver, pancreas, adrenal glands, and abdominal aorta caliber are normal. Moderate atherosclerotic calcification of the abdominal aorta. Kidneys enhance symmetrically, no hydronephrosis. Stomach is not well distended, limiting evaluation. There is no small bowel obstruction. The appendix is normal. No colon wall thickening. The ascending colon is distended with stool. No abdominal adenopathy or free fluid. Prostate size normal. Urinary bladder is normal. No pelvic free fluid. No acute bone abnormality. IMPRESSION: 1. No acute abdominal or pelvic abnormality. 2. Moderate atelectasis or scarring in the bilateral lower lobes. 3. Mild splenomegaly. Electronically signed by: Oren Camara MD (12/02/2017 8:25 AM) [id number]
[2017-12-02 08:30] VITALS: BP 189/91
== END 2017-12-02 08:37 | disposition home or self-care (01) ==
LOC: ER 06:35
DX: R10.13 Epigastric pain (principal); R14.1 Gas pain; R11.0 Nausea; R19.7 Diarrhea, unspecified; E11.9 Type 2 diabetes mellitus without complications; I10 Essential (primary) hypertension; I25.2 Old myocardial infarction; I25.10 Atherosclerotic heart disease of native coronary artery without angina pectoris; Z95.1 Presence of aortocoronary bypass graft; Z88.0 Allergy status to penicillin
CPT/HCPCS: 36415; 71045; 74177; 80053; 83690; 84484; 85025; 93005; 96374; 96375; 99285; J2405; J3010; S0028

== ENCOUNTER 2018-01-26 01:17 | Inpatient (IN) | payer MEDICAID ==
[~2018-01-26] VITALS: Ht 182.9 cm; Wt 71.7 kg
[2018-01-26] VITALS (16 sets, daily range): BP systolic 104–170; BP diastolic 72–102
--- NOTE | 2018-01-26 01:33 | PHYS DOC ---
Past Medical History Past Medical History: CAD, Diabetes-Type II, Hypertension, CO Past Surgical History: Coronary Bypass Surgery, Tonsillectomy Alcohol Use: None Drug Use: Marijuana Adult General Chief Complaint Chief Complaint: CHEST PAIN HPI HPI Patient is a 57 year old male who presents with chest pain and abdomen pain. The patient has a history of quadruple bypass surgery in 2014. He had subsequently 4 stents placed after that. Today, he presents the ER complaining of chest pain that is primarily in the middle and left side of his chest. The pain started 2 hours prior to presentation while he was at rest. Pain is nonradiating. Patient states the pain feels similar to prior cardiac related pains. His surgery was completed at [facility]. This evening, he also complains of abdominal pain. The patient was apparently recently at [facility]. According to the patient, he was told he had appendicitis but he was treated with antibiotics instead of surgery. He was discharged to home 4 days earlier but states he continued to have abdominal pain. No nausea or vomiting. No fever. No shortness of breath. No worsening orthopnea. Patient also relates that he has cardiomyopathy with an ejection fraction of 30%. He does have a defibrillator in place. Review of Systems Review of Systems Constitutional: Denies fever or chills Eyes: Denies change in visual acuity HENT: Denies Respiratory: Denies cough or shortness of breath Cardiovascular: No additional information GI: + abdominal pain. no vomiting/nausea : Denies dysuria or hematuria Musculoskeletal: Denies back pain Integument: Denies rash Neurologic: Denies headache Endocrine: Denies polyuria All other systems were reviewed and found to be within normal limits, except as documented in this note. Current Medications Current Medications Current Medications Medications (Trade) Dose Ordered Sig/Doris Start Time Stop Time Status Last Admin Dose Admin Info (CONTRAST GIVEN -- Rx MONITORING) 1 each PRN DAILY PRN 01/26/18 02:15 01/28/18 02:14 Iohexol (Omnipaque 300 Mg/ml) 75 ml 1X ONCE 01/26/18 02:15 01/26/18 02:16 DC 01/26/18 02:31 75 ML Morphine Sulfate (Morphine Sulfate) 4 mg 1X ONCE 01/26/18 02:00 01/26/18 02:28 DC Sodium Chloride 1,000 ml @ 1,000 mls/hr 1X ONCE 01/26/18 02:15 01/26/18 03:14 DC 01/26/18 02:12 1,000 MLS/HR Allergies Allergies Allergies Coded Allergies Type Severity Reaction Last Updated Verified Penicillins Allergy Unknown 12/02/17 Yes Physical Exam Physical Exam Constitutional: Well developed, well nourished, no acute distress, non-toxic appearance HENT: Normocephalic, atraumatic, bilateral external ears normal, oropharynx moist Eyes: PERRLA, EOMI, conjunctiva normal Neck: Normal range of motion Cardiovascular:Heart rate regular rhythm, no murmur Lungs & Thorax: Bilateral breath sounds clear to auscultation, well-healed sternotomy scar Abdomen: Bowel sounds normal, soft, nontender Skin: Warm, dry Extremities: No edema Neurologic: Alert and oriented X 3 Psychologic: Affect flat Current Patient Data Vital Signs Vital Signs Date Time Temp Pulse Resp B/P (MAP) Pulse Ox O2 Delivery O2 Flow Rate FiO2 01/26/18 02:13 76 77/55 (62) 98 Room Air 01/26/18 01:17 97.4 18 97.4 Lab Values Laboratory Tests Test 01/26/18 01:20 White Blood Count 8.0 x10^3/uL (4.0-11.0) Red Blood Count 5.00 x10^6/uL (4.30-5.70) Hemoglobin 15.6 g/dL (13.0-17.5) Hematocrit 44.6 % (39.0-53.0) Mean Corpuscular Volume 89 fL (79-100) Mean Corpuscular Hemoglobin 31 pg (25-35) Mean Corpuscular Hemoglobin Concent 35 g/dL (31-37) Red Cell Distribution Width 14.0 % (11.5-14.5) Platelet Count 196 x10^3/uL (140-400) Neutrophils (%) (Auto) 75 % (31-73) H Lymphocytes (%) (Auto) 16 % (24-48) L Monocytes (%) (Auto) 7 % (0-9) Eosinophils (%) (Auto) 2 % (0-3) Basophils (%) (Auto) 0 % (0-3) Neutrophils # (Auto) 6.0 x10^3uL (1.8-7.7) Lymphocytes # (Auto) 1.3 x10^3/uL (1.0-4.8) Monocytes # (Auto) 0.6 x10^3/uL (0.0-1.1) Eosinophils # (Auto) 0.1 x10^3/uL (0.0-0.7) Basophils # (Auto) 0.0 x10^3/uL (0.0-0.2) Prothrombin Time 13.6 SEC (11.7-14.0) Prothrombin Time INR 1.1 (0.8-1.1) PTT 34 SEC (24-38) Sodium Level 141 mmol/L (136-145) Potassium Level 4.5 mmol/L (3.5-5.1) Chloride Level 103 mmol/L (98-107) Carbon Dioxide Level 27 mmol/L (21-32) Anion Gap 11 (6-14) Blood Urea Nitrogen 15 mg/dL (8-26) Creatinine 1.2 mg/dL (0.7-1.3) Estimated GFR (Cockcroft-Gault) 62.6 Glucose Level 137 mg/dL (70-99) H Lactic Acid Level 2.5 mmol/L (0.4-2.0) H Calcium Level 8.7 mg/dL (8.5-10.1) Total Bilirubin 0.3 mg/dL (0.2-1.0) Direct Bilirubin 0.1 mg/dL (0.0-0.2) Aspartate Amino Transferase (AST) 20 U/L (15-37) Alanine Aminotransferase (ALT) 26 U/L (16-63) Alkaline Phosphatase 89 U/L (46-116) Troponin I Quantitative < 0.017 ng/mL (0.000-0.055) ZC-Sgf-A-Type Natriuretic Peptide 451 pg/mL (0-124) H Total Protein 6.3 g/dL (6.4-8.2) L Albumin 3.5 g/dL (3.4-5.0) Lipase 524 U/L (73-393) H Laboratory Tests 01/26/18 01:20 Laboratory Tests 01/26/18 01:20 EKG EKG No STEMI Interpretation Time: 01:20 Radiology/Procedures Radiology/Procedures FINDINGS: Cystic changes at right lung base. Linear opacity as well as region of nodularity measuring up to about 16 mm at right chest base. Artificial mitral valve. AICD leads partially seen. Moderate to severe calcific atherosclerosis. Cholecystectomy clips. No peripancreatic fluid collection. Spleen unremarkable. No left-sided hydronephrosis. No right-sided hydronephrosis. Urinary bladder is partially distended. The suspected appendix measures approximately 10-11 mm. There is very little adjacent abdominal fat therefore difficult to assess whether there is adjacent inflammation. Retrocecal in location. There is a mildly prominent loops of small bowel on the left side the abdomen but no high-grade transition point to suggest obstruction. Degenerative changes throughout the spine with multilevel central canal and neural foraminal stenosis. IMPRESSION: 1. The appendix is dilated measuring up to about 10-11 mm. There is very little adjacent fat therefore difficult to assess for adjacent inflammatory changes but given the dilation if the patient has appropriate lab markers and clinical symptoms appendicitis is possible cause. 2. Linear opacity at right lung base with nodular component. Could be secondary to round atelectasis however was not also correlate with symptoms of infection to ensure there is not an infectious cause. Follow-up could be obtained to ensure that this decreases in severity to exclude neoplastic causes. Course & Med Decision Making Course & Med Decision Making Pertinent Labs and Imaging studies reviewed. (See chart for details) 01:35: Patient seen and evaluated. Non-acute EKG. c/o abdomen and chest pain. CT abd/pelvis along with CP workup ordered. NTG placed by EMS but no relief of pain symptoms. Morphine for pain. 02:00: Patient has had SBP's in low 80's. Had NTG on chest which is now removed. Gentle IVF bolus, 250 ordered. Will monitor closely. 04:30: Patient was observed in the ER for several hours. He was requesting pain medication constantly during the ED course. He was originally going to be admitted to the [facility] as a chest pain rule out and for increased tightness but the patient had persistent low blood pressures in the emergency department. Sometimes with systolic pressures in the 70s. He was given multiple judicious fluid boluses, given his history of cardiomyopathy with an EF of 30%, the patient responded mildly to these and had systolic blood pressures in the 100 range at the time he was transferred to ICU. Orders were placed earlier if it drip if needed to keep his systolic blood pressure above 90. Given his hypotension, lactate was checked and was mildly elevated at 2.5 although no acute source for infection was identified during the ED course. The patient had chest pain but no respiratory symptoms. CT scan was completed and the patient was noted to have a dilated appendix. He had no tenderness to palpation in this portion of his abdomen. He did have mild epigastric tenderness but no guarding or rebound. His lipase was noted to be elevated when compared with a result just a few weeks earlier. Overall, the cause for his hypotension is unclear. Since he didn't meet some sepsis criteria, empiric antibiotics were started. Vancomycin and Levaquin as he has a penicillin allergy. GI consult was placed regarding his elevated lipase. The patient did endorse taking some benzodiazepine prior to coming to the hospital but this is not a new medication for him. Dragon Disclaimer Dragon Disclaimer This electronic medical record was generated, in whole or in part, using a voice recognition dictation system. Departure Departure Disposition: 09 ADMITTED INPATIENT Condition: GOOD Referrals: NO PCP (PCP) SAI MACKAY DO Jan 26, 2018 01:33
[2018-01-26 01:44] LABS: BASO % 0 % (0-3); EOS # 0.1 x10^3/uL (0.0-0.7); EOS % 2 % (0-3); HEMATOCRIT 44.6 % (39.0-53.0); HEMOGLOBIN 15.6 g/dL (13.0-17.5); LYMPH # 1.3 x10^3/uL (1.0-4.8); LYMPH % 16 % (24-48); MEAN CORPUSCULAR HEMOGLOBIN 31 pg (25-35); MEAN CORPUSCULAR HGB CONC 35 g/dL (31-37); MEAN CORPUSCULAR VOLUME 89 fL (79-100); MONO # 0.6 x10^3/uL (0.0-1.1); MONO % 7 % (0-9); NEUT % 75 % (31-73); PLATELET COUNT 196 x10^3/uL (140-400)
[2018-01-26 01:54] LABS: PROTHROMBIN TIME PATIENT 13.6 SEC (11.7-14.0)
[2018-01-26 02:00] LABS: CALCIUM 8.7 mg/dL (8.5-10.1); CREATININE 1.2 mg/dL (0.7-1.3); GFR 62.6; POTASSIUM 4.5 mmol/L (3.5-5.1)
[2018-01-26] MEDS ORDERED: MORPHINE SULFATE 4 MG/ML VIAL. IV ONE (02:00)
[2018-01-26 02:04] LABS: ALBUMIN 3.5 g/dL (3.4-5.0); DIRECT BILIRUBIN 0.1 mg/dL (0.0-0.2); TOTAL BILIRUBIN 0.3 mg/dL (0.2-1.0); TOTAL PROTEIN 6.3 g/dL (6.4-8.2)
[2018-01-26] MEDS ORDERED: IV NORMAL SALINE 1000ML BAG 1,000 ML IV ONE (02:15)
[2018-01-26] MEDS ORDERED: CONTRAST GIVEN. MC PRN (02:15)
[2018-01-26] MEDS ORDERED: IOHEXOL 300 MG/ML 100ML VIAL. IV ONE (02:15)
[2018-01-26] MEDS ORDERED: ONDANSETRON PF 4 MG/2 ML VIAL. IV PRN (02:30)
[2018-01-26] MEDS: fentaNYL PF VIAL 100 MCG/2 ML VIAL IV PRN ×9 (02:51→19:40)
--- NOTE | 2018-01-26 03:21 | RAD ---
INDICATION: ABDOMEN PAIN, EVAL FOR APPY
75 ML OMNI 300 COMPARISON: December 02, 2017 TECHNIQUE: Axial CT images obtained through the abdomen and pelvis with contrast. One or more of the following individualized dose reduction techniques were utilized for this examination: 1. Automated exposure control; 2. Adjustment of the mA and/or kV according to patient size; 3. Use of iterative reconstruction technique. FINDINGS: Cystic changes at right lung base. Linear opacity as well as region of nodularity measuring up to about 16 mm at right chest base. Artificial mitral valve. AICD leads partially seen. Moderate to severe calcific atherosclerosis. Cholecystectomy clips. No peripancreatic fluid collection. Spleen unremarkable. No left-sided hydronephrosis. No right-sided hydronephrosis. Urinary bladder is partially distended. The suspected appendix measures approximately 10-11 mm. There is very little adjacent abdominal fat therefore difficult to assess whether there is adjacent inflammation. Retrocecal in location. There is a mildly prominent loops of small bowel on the left side the abdomen but no high-grade transition point to suggest obstruction. Degenerative changes throughout the spine with multilevel central canal and neural foraminal stenosis. IMPRESSION: 1. The appendix is dilated measuring up to about 10-11 mm. There is very little adjacent fat therefore difficult to assess for adjacent inflammatory changes but given the dilation if the patient has appropriate lab markers and clinical symptoms appendicitis is possible cause. 2. Linear opacity at right lung base with nodular component. Could be secondary to round atelectasis however was not also correlate with symptoms of infection to ensure there is not an infectious cause. Follow-up could be obtained to ensure that this decreases in severity to exclude neoplastic causes. Electronically signed by: Mohinder Samaniego MD (01/26/2018 3:18 AM) [id number]
[2018-01-26] MEDS ORDERED: IV NORMAL SALINE 500ML BAG 500 ML IV ONE ×2 (04:15→05:00)
[2018-01-26 04:26] LABS: BILIRUBIN,URINE NEGATIVE (NEG); CLARITY,URINE CLEAR; COLOR,URINE YELLOW; NITRITE,URINE NEGATIVE (NEG); PH,URINE 5.5; PROTEIN,URINE NEGATIVE (NEG-TRACE); UROBILINOGEN,URINE 0.2 mg/dL (0.2 mg/dL)
[2018-01-26] MEDS ORDERED: NOREPINEPHRIN 8MG/250ML PREMIX 250 ML IV PRN (04:30)
[2018-01-26 04:32] LABS: BACTERIA,URINE 0 /HPF (0-FEW); HYALINE CASTS, URINE FEW /HPF; RBC,URINE 0 /HPF (0-2); SQUAMOUS EPITHELIAL CELL,UR OCC /LPF; WBC,URINE OCC /HPF (0-4)
[2018-01-26] MEDS: IV NORMAL SALINE 1000ML BAG 1,000 ML IV SCH ×2 (05:00→18:02)
[2018-01-26] MEDS ORDERED: VANCOMYCIN 1.75 GM in IV NORMAL SALINE 500ML BAG 500 ML IV ONE (05:00)
[2018-01-26] MEDS: VANCOMYCIN PER PHARMACY MC PRN ×2 (06:21→09:24)
--- NOTE | 2018-01-26 08:06 | EKG ---
[facility] [address] [place] [address] Test Date: 2018-01-26 Test Time: 07:31:44 Pat Name: MIKE MITTAL Department: Room: 105 1 Gender: M Print Operator: ESVIN : 1960 Requested By: SAI MACKAY Order Number: [id number] Reading MD: Sabas Pickard Measurements Intervals [place] Rate: 71 P: 0 [place]: 204 QRS: 41 QRSD: 96 T: 142 QT: 426 QTc: 463 Interpretive Statements SINUS RHYTHM LOW LIMB LEAD VOLTAGE QRS(T) CONTOUR ABNORMALITY CONSISTENT WITH ANTEROSEPTAL INFARCT PROBABLY OLD ABNORMAL ECG Electronically Signed On 01-26-2018 9:21:08 GLUE MACHINE OPERATOR by Sabas Pickard
--- NOTE | 2018-01-26 08:26 | EKG ---
[facility] [address] [place] [address] Test Date: 2018-01-26 Test Time: 01:18:39 Pat Name: MIKE MITTAL Department: Room: 105 1 Gender: M Catalytic Case Operator: : 1960 Requested By: SAI MACKAY Order Number: [id number] Reading MD: Sabas Pickard Measurements Intervals [place] Rate: 79 P: -52 WV: 190 QRS: 52 QRSD: 92 T: 82 QT: 378 QTc: 434 Interpretive Statements SINUS RHYTHM LEFT VENTRICULAR HYPERTROPHY Electronically Signed On 01-26-2018 9:17:27 YOUTH PROBATION OFFICER by Sabas Pickard
--- NOTE | 2018-01-26 08:43 | RAD ---
Single view chest 01/26/2018 CLINICAL INDICATION: Chest pain. COMPARISON: Chest 12/02/2017 FINDINGS: There is a trace right apical pneumothorax with a possible basilar component. There is a trace left pleural effusion. Prior median sternotomy and aortic valvular repair and CABG. Dual-lead left chest wall cardiac conduction device is in similar position. IMPRESSION: 1. Right apical pneumothorax. There is a thin radiolucency in the lateral right lung base which may represent a basilar component of the pneumothorax versus artifact. This result was discussed with patient's nurse Deni by telephone at 8:40 AM 01/26/[address] Cesar Pulido. 2. Trace left pleural effusion. Electronically signed by: Cesar Pulido MD (01/26/2018 8:39 AM) [id number]
--- NOTE | 2018-01-26 09:26 | PDOC2 ---
GI CONSULT Reason For Consult: Abd pain, pancreatitis HPI: HPI: 57 y/o old male who was asleep in ICU this morning. I woke him, he was upset and asked me to leave. Asked to see for "pancreatitis" - lipase 524. Per imaging, unremarkable pancreas, s/p cholecystectomy. Imaging did note right apical pneumothorax (vs artifact) and dilated appendix. Chart indicate recent treatment through [facility] w/ atbx for "appendicitis." Outside records reviewed - EGD and colonoscopy 04/2017 (for abd pain and screening): normal esophagus, stomach, and duodenum, two polyps in rectum and sigmoid colon (path benign). Additionally seen at [facility] in 2017 for "enteritis" - treated w/ antibiotics. Notes mention non-compliance, recovering alcoholism, and chronic pain/narc dependence. PMH: PMH: per chart - CAD, CHF, ICM, CVA, HTN, HLD, PAD, DM, peripheral neuropathy, anxiety, OA/chronic pain on narcs, h/o alcoholsim, CABG, cardiac stents, AICD, MVR, cholecystectomy, finger surgery, tonsillectomy FH: Family History: Cancer (throat), CAD Social History: Smoke: <1 pack per day ALCOHOL: other (alcoholism - recovering) Drugs: Marijuana ROS: Unable to obtain. Vitals: Vitals: Vital Signs Date Time Temp Pulse Resp B/P (MAP) Pulse Ox O2 Delivery O2 Flow Rate FiO2 01/26/18 09:02 99 Room Air 01/26/18 06:30 71 15 111/74 (86) 01/26/18 05:43 97.5 97.5 Labs: Labs: Laboratory Tests Test 01/26/18 01:20 01/26/18 04:15 01/26/18 06:06 White Blood Count 8.0 x10^3/uL (4.0-11.0) Red Blood Count 5.00 x10^6/uL (4.30-5.70) Hemoglobin 15.6 g/dL (13.0-17.5) Hematocrit 44.6 % (39.0-53.0) Mean Corpuscular Volume 89 fL (79-100) Mean Corpuscular Hemoglobin 31 pg (25-35) Mean Corpuscular Hemoglobin Concent 35 g/dL (31-37) Red Cell Distribution Width 14.0 % (11.5-14.5) Platelet Count 196 x10^3/uL (140-400) Neutrophils (%) (Auto) 75 % (31-73) Lymphocytes (%) (Auto) 16 % (24-48) Monocytes (%) (Auto) 7 % (0-9) Eosinophils (%) (Auto) 2 % (0-3) Basophils (%) (Auto) 0 % (0-3) Neutrophils # (Auto) 6.0 x10^3uL (1.8-7.7) Lymphocytes # (Auto) 1.3 x10^3/uL (1.0-4.8) Monocytes # (Auto) 0.6 x10^3/uL (0.0-1.1) Eosinophils # (Auto) 0.1 x10^3/uL (0.0-0.7) Basophils # (Auto) 0.0 x10^3/uL (0.0-0.2) Prothrombin Time 13.6 SEC (11.7-14.0) Prothromb Time International Ratio 1.1 (0.8-1.1) Activated Partial Thromboplast Time 34 SEC (24-38) Sodium Level 141 mmol/L (136-145) Potassium Level 4.5 mmol/L (3.5-5.1) Chloride Level 103 mmol/L (98-107) Carbon Dioxide Level 27 mmol/L (21-32) Anion Gap 11 (6-14) Blood Urea Nitrogen 15 mg/dL (8-26) Creatinine 1.2 mg/dL (0.7-1.3) Estimated GFR (Cockcroft-Gault) 62.6 Glucose Level 137 mg/dL (70-99) Lactic Acid Level 2.5 mmol/L (0.4-2.0) 2.1 mmol/L (0.4-2.0) Calcium Level 8.7 mg/dL (8.5-10.1) Total Bilirubin 0.3 mg/dL (0.2-1.0) Direct Bilirubin 0.1 mg/dL (0.0-0.2) Aspartate Amino Transf (AST/SGOT) 20 U/L (15-37) Alanine Aminotransferase (ALT/SGPT) 26 U/L (16-63) Alkaline Phosphatase 89 U/L (46-116) Troponin I Quantitative < 0.017 ng/mL (0.000-0.055) 0.025 ng/mL (0.000-0.055) EW-Hrv-G-Type Natriuretic Peptide 451 pg/mL (0-124) Total Protein 6.3 g/dL (6.4-8.2) Albumin 3.5 g/dL (3.4-5.0) Lipase 524 U/L (73-393) Urine Collection Type Unknown Urine Color Yellow Urine Clarity Clear Urine pH 5.5 Urine Specific [place] >=1.030 Urine Protein Negative mg/dL (NEG-TRACE) Urine Glucose (UA) Negative mg/dL (NEG) Urine Ketones (Stick) Trace mg/dL (NEG) Urine Blood Negative (NEG) Urine Nitrite Negative (NEG) Urine Bilirubin Negative (NEG) Urine Urobilinogen Dipstick 0.2 mg/dL (0.2 mg/dL) Urine Leukocyte Esterase Negative (NEG) Urine RBC 0 /HPF (0-2) Urine WBC Occ /HPF (0-4) Urine Squamous Epithelial Cells Occ /LPF Urine Bacteria 0 /HPF (0-FEW) Urine Hyaline Casts Few /HPF Urine Mucus Slight /LPF Allergies: Coded Allergies: Penicillins (Verified Allergy, Unknown, 12/02/17) Medications: Current Medications Medications (Trade) Dose Ordered Sig/Doris Route PRN Reason Start Time Stop Time Status Last Admin Dose Admin Iohexol (Omnipaque 300 Mg/ml) 75 ml 1X ONCE IV 01/26/18 02:15 01/26/18 02:16 DC 01/26/18 02:31 Sodium Chloride 1,000 ml @ 1,000 mls/hr 1X ONCE IV 01/26/18 02:15 01/26/18 03:14 DC 01/26/18 02:12 Fentanyl Citrate (Fentanyl 2ml Vial) 50 mcg PRN Q1HR PRN IV PAIN 01/26/18 02:30 01/27/18 02:29 01/26/18 09:02 Sodium Chloride 500 ml @ 500 mls/hr 1X ONCE IV 01/26/18 04:15 01/26/18 05:14 DC 01/26/18 04:05 Vancomycin HCl (Vanco Per Pharmacy) 1 each PRN DAILY PRN MC SEE COMMENTS 01/26/18 04:15 01/26/18 06:21 Levofloxacin/ Dextrose 150 ml @ 100 mls/hr 1X ONCE IV 01/26/18 04:15 01/26/18 05:44 DC 01/26/18 04:47 Sodium Chloride 500 ml @ 500 mls/hr 1X ONCE IV 01/26/18 05:00 01/26/18 05:59 DC 01/26/18 04:10 Vancomycin HCl 1.75 gm/Sodium Chloride 500 ml @ 250 mls/hr 1X ONCE IV 01/26/18 05:00 01/26/18 06:59 DC 01/26/18 05:48 Metronidazole 100 ml @ 100 mls/hr 1X ONCE IV 01/26/18 05:30 01/26/18 06:29 DC 01/26/18 05:47 Imaging: Imaging: CXR IMPRESSION: 1. Right apical pneumothorax. There is a thin radiolucency in the lateral right lung base which may represent a basilar component of the pneumothorax versus artifact. This result was discussed with patient's nurse Deni by telephone at 8:40 AM 01/26/[address] Cesar Pulido. 2. Trace left pleural effusion. CT A/P IMPRESSION: 1. The appendix is dilated measuring up to about 10-11 mm. There is very little adjacent fat therefore difficult to assess for adjacent inflammatory changes but given the dilation if the patient has appropriate lab markers and clinical symptoms appendicitis is possible cause. 2. Linear opacity at right lung base with nodular component. Could be secondary to round atelectasis however was not also correlate with symptoms of infection to ensure there is not an infectious cause. Follow-up could be obtained to ensure that this decreases in severity to exclude neoplastic causes. PE: GEN: NAD, was asleep HEENT: Atraumatic, PERRL LUNGS: room air HEART: RRR ABD: not examined EXTREMITY: No edema SKIN: No rashes, no jaundice NEURO/PSYCH: A & O 3, angry A/P: A/P: Chest and abd pain w/ abnormal imaging - ?right apical pneumothorax and dilated appendix, ?recent atbx for appendicitis Elevated lipase S/p cholecystectomy CRC screen - UTD CAD s/p CABG and stents, ICM, ?h/o MVR, DM Chronic pain, h/o alcoholism -- Unclear significance of elevated lipase w/ other issues. Outside records indicate h/o alcoholism. EGD and colonoscopy earlier this year per HPI. Continue per other services - will attempt to return later, hopefully he'll be more agreeable. ZINA PEARL Jan 26, 2018 09:26
--- NOTE | 2018-01-26 09:57 | PDOC2 ---
JOSE BRYAN REGISTERED VETERINARY TECHNICIAN 01/26/18 0957: CONSULT Date of Consult Date of Consult DATE: 01/26/18 TIME: 09:46 Reason for Consult Reason for Consult: possible appendicitis Referring Physician Referring Physician: ER Identification/Chief Complaint Chief Complaint abdominal pain Source Source: Chart review, Patient History of Present Illness Reason for Visit: It was difficult to get a history from patient. He was angry for being woken up. Very vague with his answers. Wants to sleep for 4 hours uninterrupted From ER note RLQ pain starting last night, from the record was possibly treated at for appendicitis(only abx management) Consult from GI mentions recovering alcoholism, narcotic dependence Past Medical History Pulmonary: Bronchitis CENTRAL NERVOUS SYSTEM: Periperal neuropathy GI: Other Heme/Onc: No pertinent hx Hepatobiliary: No pertinent hx Musculoskeletal: Osteoarthritis Rheumatologic: No pertinent hx Infectious disease: No pertinent hx Renal/: No pertinent hx Past Surgical History Past Surgical History: Cholecystectomy, CABG, Other (stents ) Family History Family History: Coronary Artery Disease Social History <1 pack per day ALCOHOL: other (alcoholism - recovering) Drugs: Marijuana Lives: with Family Current Problem List Problem List Problems Medical Problems: (1) Abdominal pain Status: Acute Current Medications Current Medications Current Medications Morphine Sulfate (Morphine Sulfate) 4 mg 1X ONCE IV ; Start 01/26/18 at 02:00; Stop 01/26/18 at 02:28; Status DC Iohexol (Omnipaque 300 Mg/ml) 75 ml 1X ONCE IV Last administered on 01/26/18at 02:31; Start 01/26/18 at 02:15; Stop 01/26/18 at 02:16; Status DC Info (CONTRAST GIVEN -- Rx MONITORING) 1 each PRN DAILY PRN MC SEE COMMENTS; Start 01/26/18 at 02:15; Stop 01/28/18 at 02:14 Sodium Chloride 1,000 ml @ 1,000 mls/hr 1X ONCE IV Last administered on at 02:12; Start 01/26/18 at 02:15; Stop 01/26/18 at 03:14; Status DC Ondansetron HCl (Zofran) 4 mg PRN Q8HRS PRN IV NAUSEA/VOMITING; Start 01/26/18 at 02:30; Stop 01/27/18 at 02:29 Fentanyl Citrate (Fentanyl 2ml Vial) 50 mcg PRN Q1HR PRN IV PAIN Last administered on 01/26/18at 09:02; Start 01/26/18 at 02:30; Stop 01/27/18 at 02:29 Sodium Chloride 500 ml @ 500 mls/hr 1X ONCE IV Last administered on at 04:05; Start 01/26/18 at 04:15; Stop 01/26/18 at 05:14; Status DC Vancomycin HCl (Vanco Per Pharmacy) 1 each PRN DAILY PRN MC SEE COMMENTS Last administered on 01/26/18at 09:24; Start 01/26/18 at 04:15 Levofloxacin/ Dextrose 150 ml @ 100 mls/hr 1X ONCE IV Last administered on at 04:47; Start 01/26/18 at 04:15; Stop 01/26/18 at 05:44; Status DC Norepinephrine Bitartrate 250 ml @ 1.875 mls/ hr CONT PRN IV SEE I/O RECORD; Start 01/26/18 at 04:30 Sodium Chloride 500 ml @ 500 mls/hr 1X ONCE IV Last administered on at 04:10; Start 01/26/18 at 05:00; Stop 01/26/18 at 05:59; Status DC Sodium Chloride 1,000 ml @ 75 mls/hr [id number] IV ; Start 01/26/18 at 05:00 Vancomycin HCl 1.75 gm/Sodium Chloride 500 ml @ 250 mls/hr 1X ONCE IV Last administered on 01/26/18at 05:48; Start 01/26/18 at 05:00; Stop 01/26/18 at 06:59 ; Status DC Metronidazole 100 ml @ 100 mls/hr 1X ONCE IV Last administered on 01/26/18at 05:47; Start 01/26/18 at 05:30; Stop 01/26/18 at 06:29; Status DC Vancomycin HCl 1 gm/Sodium Chloride 250 ml @ 250 mls/hr Q12H IV ; Start at 18:00 Vancomycin HCl (Vancomycin Trough Level) 1 each 1X ONCE MC ; Start 01/27/18 at 17:30; Stop 01/27/18 at 17:31 Pantoprazole Sodium (PROTONIX VIAL for IV PUSH) 40 mg DAILYAC IVP ; Start at 10:00 Active Scripts Active Metoprolol Tartrate 100 Mg Tablet 1 Tab PO BID Digoxin 125 Mcg Tablet 125 Mcg PO DAILY Reported [insulin 70/30] 50 SQ BID Lisinopril 5 Mg Tablet 1 Tab PO DAILY Spironolactone 25 Mg Tablet 1 Tab PO DAILY Tizanidine Hcl 4 Mg Tablet 0.5 Tab PO TID Amiodarone Hcl 200 Mg Tablet 1 Tab PO DAILY Metformin Hcl 500 Mg Tablet 500 Mg PO BIDWMEALS Aspir 81 (Aspirin) 81 Mg Tablet.dr 1 Tab PO DAILY Allergies Allergies: Coded Allergies: Penicillins (Verified Allergy, Unknown, 12/02/17) ROS Review of System difficult to obtain from patient General: No: Chills, Other (fevers) Respiratory: No: Cough, Shortness of breath Cardiovascular: yes Chest Pain Gastrointestinal: No Diarrhea, No Constipation Genitourinary: No Dysuria, No Retention Physical Exam General: Alert, No acute distress, Other (angry with being woken up ) HEENT: Atraumatic, Mucous membr. moist/pink Lungs: Normal air movement Heart: Regular rate, Normal S1, Normal S2, No murmurs Abdomen: Soft, Other (RLQ TTP, no guarding or rebound ) Extremities: No clubbing, No cyanosis Skin: No rashes, No breakdown Neuro: Normal speech, Sensation intact Psych/Mental Status: Mental status NL, Mood NL Vitals VITALS Vital Signs Date Time Temp Pulse Resp B/P (MAP) Pulse Ox O2 Delivery O2 Flow Rate FiO2 01/26/18 09:02 99 Room Air 01/26/18 06:30 71 15 111/74 (86) 01/26/18 05:43 97.5 97.5 Labs Labs Laboratory Tests Test 01/26/18 01:20 01/26/18 04:15 01/26/18 06:06 White Blood Count 8.0 x10^3/uL (4.0-11.0) Red Blood Count 5.00 x10^6/uL (4.30-5.70) Hemoglobin 15.6 g/dL (13.0-17.5) Hematocrit 44.6 % (39.0-53.0) Mean Corpuscular Volume 89 fL (79-100) Mean Corpuscular Hemoglobin 31 pg (25-35) Mean Corpuscular Hemoglobin Concent 35 g/dL (31-37) Red Cell Distribution Width 14.0 % (11.5-14.5) Platelet Count 196 x10^3/uL (140-400) Neutrophils (%) (Auto) 75 % (31-73) Lymphocytes (%) (Auto) 16 % (24-48) Monocytes (%) (Auto) 7 % (0-9) Eosinophils (%) (Auto) 2 % (0-3) Basophils (%) (Auto) 0 % (0-3) Neutrophils # (Auto) 6.0 x10^3uL (1.8-7.7) Lymphocytes # (Auto) 1.3 x10^3/uL (1.0-4.8) Monocytes # (Auto) 0.6 x10^3/uL (0.0-1.1) Eosinophils # (Auto) 0.1 x10^3/uL (0.0-0.7) Basophils # (Auto) 0.0 x10^3/uL (0.0-0.2) Prothrombin Time 13.6 SEC (11.7-14.0) Prothromb Time International Ratio 1.1 (0.8-1.1) Activated Partial Thromboplast Time 34 SEC (24-38) Sodium Level 141 mmol/L (136-145) Potassium Level 4.5 mmol/L (3.5-5.1) Chloride Level 103 mmol/L (98-107) Carbon Dioxide Level 27 mmol/L (21-32) Anion Gap 11 (6-14) Blood Urea Nitrogen 15 mg/dL (8-26) Creatinine 1.2 mg/dL (0.7-1.3) Estimated GFR (Cockcroft-Gault) 62.6 Glucose Level 137 mg/dL (70-99) Lactic Acid Level 2.5 mmol/L (0.4-2.0) 2.1 mmol/L (0.4-2.0) Calcium Level 8.7 mg/dL (8.5-10.1) Total Bilirubin 0.3 mg/dL (0.2-1.0) Direct Bilirubin 0.1 mg/dL (0.0-0.2) Aspartate Amino Transf (AST/SGOT) 20 U/L (15-37) Alanine Aminotransferase (ALT/SGPT) 26 U/L (16-63) Alkaline Phosphatase 89 U/L (46-116) Troponin I Quantitative < 0.017 ng/mL (0.000-0.055) 0.025 ng/mL (0.000-0.055) IN-Jcs-B-Type Natriuretic Peptide 451 pg/mL (0-124) Total Protein 6.3 g/dL (6.4-8.2) Albumin 3.5 g/dL (3.4-5.0) Lipase 524 U/L (73-393) Urine Collection Type Unknown Urine Color Yellow Urine Clarity Clear Urine pH 5.5 Urine Specific [place] >=1.030 Urine Protein Negative mg/dL (NEG-TRACE) Urine Glucose (UA) Negative mg/dL (NEG) Urine Ketones (Stick) Trace mg/dL (NEG) Urine Blood Negative (NEG) Urine Nitrite Negative (NEG) Urine Bilirubin Negative (NEG) Urine Urobilinogen Dipstick 0.2 mg/dL (0.2 mg/dL) Urine Leukocyte Esterase Negative (NEG) Urine RBC 0 /HPF (0-2) Urine WBC Occ /HPF (0-4) Urine Squamous Epithelial Cells Occ /LPF Urine Bacteria 0 /HPF (0-FEW) Urine Hyaline Casts Few /HPF Urine Mucus Slight /LPF Laboratory Tests Test 01/26/18 01:20 01/26/18 04:15 01/26/18 06:06 White Blood Count 8.0 x10^3/uL (4.0-11.0) Red Blood Count 5.00 x10^6/uL (4.30-5.70) Hemoglobin 15.6 g/dL (13.0-17.5) Hematocrit 44.6 % (39.0-53.0) Mean Corpuscular Volume 89 fL (79-100) Mean Corpuscular Hemoglobin 31 pg (25-35) Mean Corpuscular Hemoglobin Concent 35 g/dL (31-37) Red Cell Distribution Width 14.0 % (11.5-14.5) Platelet Count 196 x10^3/uL (140-400) Neutrophils (%) (Auto) 75 % (31-73) Lymphocytes (%) (Auto) 16 % (24-48) Monocytes (%) (Auto) 7 % (0-9) Eosinophils (%) (Auto) 2 % (0-3) Basophils (%) (Auto) 0 % (0-3) Neutrophils # (Auto) 6.0 x10^3uL (1.8-7.7) Lymphocytes # (Auto) 1.3 x10^3/uL (1.0-4.8) Monocytes # (Auto) 0.6 x10^3/uL (0.0-1.1) Eosinophils # (Auto) 0.1 x10^3/uL (0.0-0.7) Basophils # (Auto) 0.0 x10^3/uL (0.0-0.2) Prothrombin Time 13.6 SEC (11.7-14.0) Prothromb Time International Ratio 1.1 (0.8-1.1) Activated Partial Thromboplast Time 34 SEC (24-38) Sodium Level 141 mmol/L (136-145) Potassium Level 4.5 mmol/L (3.5-5.1) Chloride Level 103 mmol/L (98-107) Carbon Dioxide Level 27 mmol/L (21-32) Anion Gap 11 (6-14) Blood Urea Nitrogen 15 mg/dL (8-26) Creatinine 1.2 mg/dL (0.7-1.3) Estimated GFR (Cockcroft-Gault) 62.6 Glucose Level 137 mg/dL (70-99) Lactic Acid Level 2.5 mmol/L (0.4-2.0) 2.1 mmol/L (0.4-2.0) Calcium Level 8.7 mg/dL (8.5-10.1) Total Bilirubin 0.3 mg/dL (0.2-1.0) Direct Bilirubin 0.1 mg/dL (0.0-0.2) Aspartate Amino Transf (AST/SGOT) 20 U/L (15-37) Alanine Aminotransferase (ALT/SGPT) 26 U/L (16-63) Alkaline Phosphatase 89 U/L (46-116) Troponin I Quantitative < 0.017 ng/mL (0.000-0.055) 0.025 ng/mL (0.000-0.055) PN-Gkl-T-Type Natriuretic Peptide 451 pg/mL (0-124) Total Protein 6.3 g/dL (6.4-8.2) Albumin 3.5 g/dL (3.4-5.0) Lipase 524 U/L (73-393) Urine Collection Type Unknown Urine Color Yellow Urine Clarity Clear Urine pH 5.5 Urine Specific [place] >=1.030 Urine Protein Negative mg/dL (NEG-TRACE) Urine Glucose (UA) Negative mg/dL (NEG) Urine Ketones (Stick) Trace mg/dL (NEG) Urine Blood Negative (NEG) Urine Nitrite Negative (NEG) Urine Bilirubin Negative (NEG) Urine Urobilinogen Dipstick 0.2 mg/dL (0.2 mg/dL) Urine Leukocyte Esterase Negative (NEG) Urine RBC 0 /HPF (0-2) Urine WBC Occ /HPF (0-4) Urine Squamous Epithelial Cells Occ /LPF Urine Bacteria 0 /HPF (0-FEW) Urine Hyaline Casts Few /HPF Urine Mucus Slight /LPF Assessment/Plan Assessment/Plan abdominal pain, chest pain elevated lipase Chronic pain CT did not find any significant pancreatitis findings dilated appendix, no inflammatory findings Trace right pneumothorax will have Dr Huynh evaluate DRAGAN HUYNH MD 01/26/18 1706: CONSULT Assessment/Plan Assessment/Plan Pt seen and examined. Agree with Ms. Bryan's note Pt with c/o abd pain, hungry abd soft, ND, mild diffuse TTP low probability of appendicitis in high risk pt cont abx and supportive care Thanks for consult! JOSE BRYAN APRN Jan 26, 2018 09:57 DRAGAN HUYNH MD Jan 26, 2018 17:06
--- NOTE | 2018-01-26 10:34 | PDOC2 ---
MANSI CASTILLO CARPET INSPECTOR 01/26/18 1034: CARDIAC CONSULT DATE OF CONSULT Date of Consult DATE: 01/26/18 TIME: 10:21 REASON FOR CONSULT Reason for Consult: Chest pain rule out Extensive cardiac history REFERRING PHYSICIAN Referring Physician: Dr. Rodriguez SOURCE Source: Chart review, Patient HISTORY OF PRESENT ILLNESS HISTORY OF PRESENT ILLNESS This is a 57 yo male, with a history of CAD s/p CABG, who presented with complaints of chest and abdominal pain. Patient drowsy and difficult to obtain information from. Very vague. Began having abdominal pain yesterday. Pain then radiated to his chest. Describes as stabbing in nature. Denies any dizziness, diaphoresis, or palpitations, LE edema. May have had some SOA. Recently treated for appendicitis at pre chart review. Has additional history of ICP s/p AICD. Follows with Dr. Olguin at [facility]. PAST MEDICAL HISTORY Past Medical History Cardiovascular: CAD, ICM, CHF, HTN, Hyperlipidemia, Other (PAD), atrial flutter (paroxysmal) Pulmonary: Bronchitis CENTRAL NERVOUS SYSTEM: Peripheral neuropathy, CVA GI: Other (Rectal bleed? 04/2016), appendicitis Heme/Onc: No pertinent hx Hepatobiliary: No pertinent hx Psych: Anxiety, addictions (ETOH history, narcotics, meth) Musculoskeletal: Osteoarthritis Rheumatologic: No pertinent hx Infectious disease: No pertinent hx ENT: No pertinent hx Renal/: No pertinent hx Endocrine: Diabetes (2) PAST SURGICAL HISTORY Past Surgical History CABG (x4 in 2015), Other (right hand surgery) Past Surgical History: Pacemaker (AICD- brand unknown), Cholecystectomy, Tonsillectomy FAMILY HISTORY Family History: Coronary Artery Disease SOCIAL HISTORY Social History Smoke: No ALCOHOL: occasional Drugs: Marijuana, Meth(history)- denies present use Lives: with Family CURRENT MEDICATIONS CURRENT MEDICATIONS Current Medications Medications (Trade) Dose Ordered Sig/Doris Route PRN Reason Start Time Stop Time Status Last Admin Dose Admin Iohexol (Omnipaque 300 Mg/ml) 75 ml 1X ONCE IV 01/26/18 02:15 01/26/18 02:16 DC 01/26/18 02:31 Sodium Chloride 1,000 ml @ 1,000 mls/hr 1X ONCE IV 01/26/18 02:15 01/26/18 03:14 DC 01/26/18 02:12 Fentanyl Citrate (Fentanyl 2ml Vial) 50 mcg PRN Q1HR PRN IV PAIN 01/26/18 02:30 01/27/18 02:29 01/26/18 09:02 Sodium Chloride 500 ml @ 500 mls/hr 1X ONCE IV 01/26/18 04:15 01/26/18 05:14 DC 01/26/18 04:05 Vancomycin HCl (Vanco Per Pharmacy) 1 each PRN DAILY PRN MC SEE COMMENTS 01/26/18 04:15 01/26/18 09:24 Levofloxacin/ Dextrose 150 ml @ 100 mls/hr 1X ONCE IV 01/26/18 04:15 01/26/18 05:44 DC 01/26/18 04:47 Sodium Chloride 500 ml @ 500 mls/hr 1X ONCE IV 01/26/18 05:00 01/26/18 05:59 DC 01/26/18 04:10 Vancomycin HCl 1.75 gm/Sodium Chloride 500 ml @ 250 mls/hr 1X ONCE IV 01/26/18 05:00 01/26/18 06:59 DC 01/26/18 05:48 Metronidazole 100 ml @ 100 mls/hr 1X ONCE IV 01/26/18 05:30 01/26/18 06:29 DC 01/26/18 05:47 ALLERGIES ALLERGIES: Coded Allergies: Penicillins (Verified Allergy, Unknown, 12/02/17) ROS Review of System 14 point ROS conducted with pertinent positives noted above in HPI. PHYSICAL EXAM General: Alert, Oriented X3, No acute distress, Other (drowsy) HEENT: Atraumatic, Mucous membr. moist/pink Lungs: Clear to auscultation Heart: Regular rate, Normal S1, Normal S2 Abdomen: Other (diffuse abdominal tenderness) Skin: No significant lesion Neuro: Sensation intact Psych/Mental Status: Mental status NL MUSCULOSKELETAL: No swelling VITALS VITALS Vital Signs Date Time Temp Pulse Resp B/P (MAP) Pulse Ox O2 Delivery O2 Flow Rate FiO2 01/26/18 10:11 99 Room Air 01/26/18 06:30 71 15 111/74 (86) 01/26/18 05:43 97.5 97.5 LABS Lab: Laboratory Tests Test 01/26/18 01:20 01/26/18 04:15 01/26/18 06:06 White Blood Count 8.0 x10^3/uL (4.0-11.0) Red Blood Count 5.00 x10^6/uL (4.30-5.70) Hemoglobin 15.6 g/dL (13.0-17.5) Hematocrit 44.6 % (39.0-53.0) Mean Corpuscular Volume 89 fL (79-100) Mean Corpuscular Hemoglobin 31 pg (25-35) Mean Corpuscular Hemoglobin Concent 35 g/dL (31-37) Red Cell Distribution Width 14.0 % (11.5-14.5) Platelet Count 196 x10^3/uL (140-400) Neutrophils (%) (Auto) 75 % (31-73) Lymphocytes (%) (Auto) 16 % (24-48) Monocytes (%) (Auto) 7 % (0-9) Eosinophils (%) (Auto) 2 % (0-3) Basophils (%) (Auto) 0 % (0-3) Neutrophils # (Auto) 6.0 x10^3uL (1.8-7.7) Lymphocytes # (Auto) 1.3 x10^3/uL (1.0-4.8) Monocytes # (Auto) 0.6 x10^3/uL (0.0-1.1) Eosinophils # (Auto) 0.1 x10^3/uL (0.0-0.7) Basophils # (Auto) 0.0 x10^3/uL (0.0-0.2) Prothrombin Time 13.6 SEC (11.7-14.0) Prothromb Time International Ratio 1.1 (0.8-1.1) Activated Partial Thromboplast Time 34 SEC (24-38) Sodium Level 141 mmol/L (136-145) Potassium Level 4.5 mmol/L (3.5-5.1) Chloride Level 103 mmol/L (98-107) Carbon Dioxide Level 27 mmol/L (21-32) Anion Gap 11 (6-14) Blood Urea Nitrogen 15 mg/dL (8-26) Creatinine 1.2 mg/dL (0.7-1.3) Estimated GFR (Cockcroft-Gault) 62.6 Glucose Level 137 mg/dL (70-99) Lactic Acid Level 2.5 mmol/L (0.4-2.0) 2.1 mmol/L (0.4-2.0) Calcium Level 8.7 mg/dL (8.5-10.1) Total Bilirubin 0.3 mg/dL (0.2-1.0) Direct Bilirubin 0.1 mg/dL (0.0-0.2) Aspartate Amino Transf (AST/SGOT) 20 U/L (15-37) Alanine Aminotransferase (ALT/SGPT) 26 U/L (16-63) Alkaline Phosphatase 89 U/L (46-116) Troponin I Quantitative < 0.017 ng/mL (0.000-0.055) 0.025 ng/mL (0.000-0.055) VK-Yrn-I-Type Natriuretic Peptide 451 pg/mL (0-124) Total Protein 6.3 g/dL (6.4-8.2) Albumin 3.5 g/dL (3.4-5.0) Lipase 524 U/L (73-393) Urine Collection Type Unknown Urine Color Yellow Urine Clarity Clear Urine pH 5.5 Urine Specific [place] >=1.030 Urine Protein Negative mg/dL (NEG-TRACE) Urine Glucose (UA) Negative mg/dL (NEG) Urine Ketones (Stick) Trace mg/dL (NEG) Urine Blood Negative (NEG) Urine Nitrite Negative (NEG) Urine Bilirubin Negative (NEG) Urine Urobilinogen Dipstick 0.2 mg/dL (0.2 mg/dL) Urine Leukocyte Esterase Negative (NEG) Urine RBC 0 /HPF (0-2) Urine WBC Occ /HPF (0-4) Urine Squamous Epithelial Cells Occ /LPF Urine Bacteria 0 /HPF (0-FEW) Urine Hyaline Casts Few /HPF Urine Mucus Slight /LPF ECHOCARDIOGRAM ECHOCARDIOGRAM <Conclusion> Left ventricle systolic function is moderately to severely impaired. The Ejection Fraction is 25-30%. There is severe global hypokinesis with akinesis of the mid to distal infero- septum, inferior wall and apex. There is mild mitral valve stenosis. Mean pressure gradient of 6.0 mmHg. DATE: 09/26/16 1652 ASSESSMENT/PLAN ASSESSMENT/PLAN 1. Chest pain; atypical. AMI ruled out. Most probably GI in nature 2. CAD s/p CABG 2014. stable. 3. Chronic systolic HF with ICM; LVEF 25-30%; s/p AICD- brand unknown. compensated 4. Paroxysmal atrial flutter; maintaining SR on Amiodarone. Digoxin and metoprolol for rate control. Previously on anticoagulation therapy but patient reports this was discontinued and he was placed on ASA 5. Abdominal pain, recent treatment for appendicitis. As per GI 6. Elevated lipase 7. Dilated appendix, no inflammatory findings. Surgical team following 8. Hyperlipidemia; statin 9. Diabetes, II 10. H/o substance abuse Recommendations Check echo to assess LV function Resume secondary prevention measures and rhythm maintenance when able to take PO. Will add IV metoprolol while NPO for rate control Supportive care. MILLY VILLEGAS MD 01/26/18 2210: CARDIAC CONSULT ASSESSMENT/PLAN ASSESSMENT/PLAN Patient seen and examined. Agree with FIXED WING AIRCRAFT FLIGHT ENGINEER's assessment and plan. CP with atypical features DE ruled out. CAD s/p CABG status clinically stable Chronic systolic heart failure compensated Paroxysmal atrial flutter maintaining sinus rhythm with amiodarone Continue management of abdominal pain per GI team Thank you for your consultation MANSI CASTILLO APRN Jan 26, 2018 10:34 MILLY VILLEGAS MD Jan 26, 2018 22:10
[2018-01-26] MEDS: PANTOPRAZOLE IV PUSH 40 MG VIAL. IVP SCH (11:31)
--- NOTE | 2018-01-26 12:21 | HP ---
ADMIT DATE: 01/26/2018 CHIEF COMPLAINT: Chest pain and abdominal pain. HISTORY OF PRESENT ILLNESS: The patient is a pleasant 57-year-old male who presented to the ER with complaints of chest pain and abdominal pain, rated at 9/10, has associated nausea. It has been occurring off and on for a couple of days, but it got worse today. It got worse with moving, better with sitting still. He tried increasing his home meds, but that did not seem to work. While in the ER, he was noted to have elevated lipase of 524. He also has a lactic acidosis with lactic acid level 2.5. The chest x-ray showing a minimal right apical pneumothorax and a trace left pleural effusion. CT of the abdomen was showing possible appendicitis. The patient is now in the ICU where we have consulted General Surgery and GI. PAST MEDICAL HISTORY: Previous drug abuse, CAD, hypertension, hyperlipidemia, diabetes, coronary artery bypass surgery, tonsillectomy, arrhythmias. ALLERGIES: PENICILLIN. FAMILY HISTORY: Coronary artery disease. SOCIAL HISTORY: Does not currently drink or take drugs, but I guess he has a history of drug abuse. MEDICATIONS: He is on tizanidine, amiodarone, digoxin, metoprolol, lisinopril, Aldactone, aspirin, metformin and insulin. REVIEW OF SYSTEMS: GENERAL: No history of weight change, weakness or fevers. SKIN: No bruising, hair changes or rashes. EYES: No blurred, double or loss of vision. NOSE AND THROAT: No history of nosebleeds, hoarseness or sore throat. HEART: No history of palpitations, chest pain or shortness of breath on exertion. LUNGS: Denies cough, hemoptysis, wheezing or shortness of breath. GASTROINTESTINAL: He complains of abdominal pain. Denies changes in appetite, nausea, vomiting, diarrhea or constipation. GENITOURINARY: No history of frequency, urgency, hesitancy or nocturia. NEUROLOGIC: Denies history of numbness, tingling, tremor or weakness. PSYCHIATRIC: No history of panic, anxiety or depression. ENDOCRINE: No history of heat or cold intolerance, polyuria or polydipsia. EXTREMITIES: Denies muscle weakness, joint pain, pain on walking or stiffness. PHYSICAL EXAMINATION: VITAL SIGNS: Temperature is afebrile, pulse 70, respirations 18, blood pressure 116/76. GENERAL: He is sleeping in the ICU. He awakens. He is complaining of pain. HEART: Normal S1, S2. LUNGS: Clear to auscultation. ABDOMEN: Soft and tender in the right lower quadrant. EXTREMITIES: Trace edema. SKIN: No rashes. ENDOCRINE: No thyromegaly. LYMPHATICS: No cervical nodes. HEMATOPOIETIC: No bruising. PSYCHIATRIC: He is depressed. NEUROLOGIC: No focal deficits. LABORATORY DATA: Hematology is normal. Troponin is 0. BNP 451. Lipase 524. CT shows possible appendicitis. ASSESSMENT AND PLAN: Possible appendicitis. The patient has been admitted. We are starting IV antibiotics, IV fluids, p.r.n. narcotics, p.r.n. Zofran. Consult Gastroenterology, consult General Surgery and consult Cardiology. Home meds. Frequent labs. PROGNOSIS: Guarded. DEL ANGULO DO DR: WERNER/adal JOB#: [id number] / [id number]
--- NOTE | 2018-01-26 13:16 | EKG ---
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
[2018-01-26] MEDS: METOPROLOL TARTRATE 5 MG/5 ML VIAL. IVP SCH (18:00)
[2018-01-26] MEDS: VANCOMYCIN 1 GM in IV NORMAL SALINE 250ML 250 ML IV SCH (18:02)
[2018-01-26] MEDS ORDERED: IV NORMAL SALINE 1000ML BAG 1,000 ML IV SCH (19:30)
[2018-01-26] MEDS: MORPHINE SULFATE 4 MG/ML VIAL. IV PRN (22:22)
[2018-01-27] MEDS: METOPROLOL TARTRATE 5 MG/5 ML VIAL. IVP SCH ×4 (00:04→18:31)
[2018-01-27 03:00] VITALS: BP 159/96
[2018-01-27] MEDS: MORPHINE SULFATE 4 MG/ML VIAL. IV PRN ×3 (03:02→11:35)
[2018-01-27 05:00] LABS: BASO % 1 % (0-3); EOS # 0.2 x10^3/uL (0.0-0.7); EOS % 3 % (0-3); HEMATOCRIT 38.2 % (39.0-53.0); HEMOGLOBIN 13.5 g/dL (13.0-17.5); LYMPH # 1.1 x10^3/uL (1.0-4.8); LYMPH % 22 % (24-48); MEAN CORPUSCULAR HEMOGLOBIN 31 pg (25-35); MEAN CORPUSCULAR HGB CONC 35 g/dL (31-37); MEAN CORPUSCULAR VOLUME 89 fL (79-100); MONO # 0.4 x10^3/uL (0.0-1.1); MONO % 8 % (0-9); NEUT # 3.4 x10^3uL (1.8-7.7); NEUT % 66 % (31-73); PLATELET COUNT 167 x10^3/uL (140-400); RED BLOOD COUNT 4.31 x10^6/uL (4.30-5.70); RED CELL DISTRIBUTION WIDTH 13.9 % (11.5-14.5); WHITE BLOOD COUNT 5.1 x10^3/uL (4.0-11.0)
[2018-01-27 05:24] LABS: CALCIUM 8.5 mg/dL (8.5-10.1); CREATININE 0.8 mg/dL (0.7-1.3); POTASSIUM 4.2 mmol/L (3.5-5.1)
[2018-01-27 05:28] LABS: CHOLESTEROL/HDL RATIO 2.7
[2018-01-27] MEDS: PANTOPRAZOLE IV PUSH 40 MG VIAL. IVP SCH (05:43)
[2018-01-27] MEDS: VANCOMYCIN 1 GM in IV NORMAL SALINE 250ML 250 ML IV SCH (05:44)
[2018-01-27 07:00] VITALS: BP 157/88
--- NOTE | 2018-01-27 09:35 | PDOC ---
SURGICAL PROGRESS NOTE Subjective continued abdominal pain + nausea Vital Signs Vital Signs Date Time Temp Pulse Resp B/P (MAP) Pulse Ox O2 Delivery O2 Flow Rate FiO2 01/27/18 07:57 Room Air 01/27/18 07:00 98.0 80 14 157/88 (111) 97 98.0 I&O Intake and Output 01/27/18 07:00 Intake Total 0 ml Output Total 800 ml Balance -800 ml Intake Oral 0 ml Other 0 ml Output Urine Total 800 ml # Voids 1 General: Alert, Oriented X3, Cooperative, No acute distress Abdomen: Soft, Other (ND, tenderness to RLQ, right mid abdomen ) Labs Laboratory Tests Test 01/26/18 01:20 01/26/18 04:15 01/26/18 06:06 01/26/18 07:00 White Blood Count 8.0 x10^3/uL (4.0-11.0) Red Blood Count 5.00 x10^6/uL (4.30-5.70) Hemoglobin 15.6 g/dL (13.0-17.5) Hematocrit 44.6 % (39.0-53.0) Mean Corpuscular Volume 89 fL (79-100) Mean Corpuscular Hemoglobin 31 pg (25-35) Mean Corpuscular Hemoglobin Concent 35 g/dL (31-37) Red Cell Distribution Width 14.0 % (11.5-14.5) Platelet Count 196 x10^3/uL (140-400) Neutrophils (%) (Auto) 75 % (31-73) Lymphocytes (%) (Auto) 16 % (24-48) Monocytes (%) (Auto) 7 % (0-9) Eosinophils (%) (Auto) 2 % (0-3) Basophils (%) (Auto) 0 % (0-3) Neutrophils # (Auto) 6.0 x10^3uL (1.8-7.7) Lymphocytes # (Auto) 1.3 x10^3/uL (1.0-4.8) Monocytes # (Auto) 0.6 x10^3/uL (0.0-1.1) Eosinophils # (Auto) 0.1 x10^3/uL (0.0-0.7) Basophils # (Auto) 0.0 x10^3/uL (0.0-0.2) Prothrombin Time 13.6 SEC (11.7-14.0) Prothromb Time International Ratio 1.1 (0.8-1.1) Activated Partial Thromboplast Time 34 SEC (24-38) Sodium Level 141 mmol/L (136-145) Potassium Level 4.5 mmol/L (3.5-5.1) Chloride Level 103 mmol/L (98-107) Carbon Dioxide Level 27 mmol/L (21-32) Anion Gap 11 (6-14) Blood Urea Nitrogen 15 mg/dL (8-26) Creatinine 1.2 mg/dL (0.7-1.3) Estimated GFR (Cockcroft-Gault) 62.6 Glucose Level 137 mg/dL (70-99) Lactic Acid Level 2.5 mmol/L (0.4-2.0) 2.1 mmol/L (0.4-2.0) Calcium Level 8.7 mg/dL (8.5-10.1) Total Bilirubin 0.3 mg/dL (0.2-1.0) Direct Bilirubin 0.1 mg/dL (0.0-0.2) Aspartate Amino Transf (AST/SGOT) 20 U/L (15-37) Alanine Aminotransferase (ALT/SGPT) 26 U/L (16-63) Alkaline Phosphatase 89 U/L (46-116) Troponin I Quantitative < 0.017 ng/mL (0.000-0.055) 0.025 ng/mL (0.000-0.055) NC-Qyq-P-Type Natriuretic Peptide 451 pg/mL (0-124) Total Protein 6.3 g/dL (6.4-8.2) Albumin 3.5 g/dL (3.4-5.0) Lipase 524 U/L (73-393) Urine Collection Type Unknown Urine Color Yellow Urine Clarity Clear Urine pH 5.5 Urine Specific [place] >=1.030 Urine Protein Negative mg/dL (NEG-TRACE) Urine Glucose (UA) Negative mg/dL (NEG) Urine Ketones (Stick) Trace mg/dL (NEG) Urine Blood Negative (NEG) Urine Nitrite Negative (NEG) Urine Bilirubin Negative (NEG) Urine Urobilinogen Dipstick 0.2 mg/dL (0.2 mg/dL) Urine Leukocyte Esterase Negative (NEG) Urine RBC 0 /HPF (0-2) Urine WBC Occ /HPF (0-4) Urine Squamous Epithelial Cells Occ /LPF Urine Bacteria 0 /HPF (0-FEW) Urine Hyaline Casts Few /HPF Urine Mucus Slight /LPF Nasal Screen MRSA (PCR) Negative (Negative) Test 01/26/18 12:20 01/26/18 19:24 01/26/18 19:30 01/27/18 04:05 Troponin I Quantitative < 0.017 ng/mL (0.000-0.055) < 0.017 ng/mL (0.000-0.055) Glucose (Fingerstick) 107 mg/dL (70-99) Lactic Acid Level 0.5 mmol/L (0.4-2.0) White Blood Count 5.1 x10^3/uL (4.0-11.0) Red Blood Count 4.31 x10^6/uL (4.30-5.70) Hemoglobin 13.5 g/dL (13.0-17.5) Hematocrit 38.2 % (39.0-53.0) Mean Corpuscular Volume 89 fL (79-100) Mean Corpuscular Hemoglobin 31 pg (25-35) Mean Corpuscular Hemoglobin Concent 35 g/dL (31-37) Red Cell Distribution Width 13.9 % (11.5-14.5) Platelet Count 167 x10^3/uL (140-400) Neutrophils (%) (Auto) 66 % (31-73) Lymphocytes (%) (Auto) 22 % (24-48) Monocytes (%) (Auto) 8 % (0-9) Eosinophils (%) (Auto) 3 % (0-3) Basophils (%) (Auto) 1 % (0-3) Neutrophils # (Auto) 3.4 x10^3uL (1.8-7.7) Lymphocytes # (Auto) 1.1 x10^3/uL (1.0-4.8) Monocytes # (Auto) 0.4 x10^3/uL (0.0-1.1) Eosinophils # (Auto) 0.2 x10^3/uL (0.0-0.7) Basophils # (Auto) 0.0 x10^3/uL (0.0-0.2) Sodium Level 142 mmol/L (136-145) Potassium Level 4.2 mmol/L (3.5-5.1) Chloride Level 107 mmol/L (98-107) Carbon Dioxide Level 25 mmol/L (21-32) Anion Gap 10 (6-14) Blood Urea Nitrogen 10 mg/dL (8-26) Creatinine 0.8 mg/dL (0.7-1.3) Estimated GFR (Cockcroft-Gault) 100.0 Glucose Level 77 mg/dL (70-99) Calcium Level 8.5 mg/dL (8.5-10.1) Triglycerides Level 116 mg/dL (0-150) Cholesterol Level 70 mg/dL (0-200) LDL Cholesterol, Calculated 21 mg/dL (0-100) VLDL Cholesterol, Calculated 23 mg/dL (0-40) Non-HDL Cholesterol Calculated 44 mg/dL (0-129) HDL Cholesterol 26 mg/dL (40-60) Cholesterol/HDL Ratio 2.7 Lipase 77 U/L (73-393) Test 01/27/18 07:29 Glucose (Fingerstick) 84 mg/dL (70-99) Laboratory Tests Test 01/26/18 12:20 01/26/18 19:24 01/26/18 19:30 01/27/18 04:05 Troponin I Quantitative < 0.017 ng/mL (0.000-0.055) < 0.017 ng/mL (0.000-0.055) Glucose (Fingerstick) 107 mg/dL (70-99) Lactic Acid Level 0.5 mmol/L (0.4-2.0) White Blood Count 5.1 x10^3/uL (4.0-11.0) Red Blood Count 4.31 x10^6/uL (4.30-5.70) Hemoglobin 13.5 g/dL (13.0-17.5) Hematocrit 38.2 % (39.0-53.0) Mean Corpuscular Volume 89 fL (79-100) Mean Corpuscular Hemoglobin 31 pg (25-35) Mean Corpuscular Hemoglobin Concent 35 g/dL (31-37) Red Cell Distribution Width 13.9 % (11.5-14.5) Platelet Count 167 x10^3/uL (140-400) Neutrophils (%) (Auto) 66 % (31-73) Lymphocytes (%) (Auto) 22 % (24-48) Monocytes (%) (Auto) 8 % (0-9) Eosinophils (%) (Auto) 3 % (0-3) Basophils (%) (Auto) 1 % (0-3) Neutrophils # (Auto) 3.4 x10^3uL (1.8-7.7) Lymphocytes # (Auto) 1.1 x10^3/uL (1.0-4.8) Monocytes # (Auto) 0.4 x10^3/uL (0.0-1.1) Eosinophils # (Auto) 0.2 x10^3/uL (0.0-0.7) Basophils # (Auto) 0.0 x10^3/uL (0.0-0.2) Sodium Level 142 mmol/L (136-145) Potassium Level 4.2 mmol/L (3.5-5.1) Chloride Level 107 mmol/L (98-107) Carbon Dioxide Level 25 mmol/L (21-32) Anion Gap 10 (6-14) Blood Urea Nitrogen 10 mg/dL (8-26) Creatinine 0.8 mg/dL (0.7-1.3) Estimated GFR (Cockcroft-Gault) 100.0 Glucose Level 77 mg/dL (70-99) Calcium Level 8.5 mg/dL (8.5-10.1) Triglycerides Level 116 mg/dL (0-150) Cholesterol Level 70 mg/dL (0-200) LDL Cholesterol, Calculated 21 mg/dL (0-100) VLDL Cholesterol, Calculated 23 mg/dL (0-40) Non-HDL Cholesterol Calculated 44 mg/dL (0-129) HDL Cholesterol 26 mg/dL (40-60) Cholesterol/HDL Ratio 2.7 Lipase 77 U/L (73-393) Test 01/27/18 07:29 Glucose (Fingerstick) 84 mg/dL (70-99) Problem List Problems Medical Problems: (1) Abdominal pain Status: Acute Assessment/Plan continue supportive measures will review with JOSE Winn APRN Jan 27, 2018 09:35
[2018-01-27] MEDS: IV NORMAL SALINE 1000ML BAG 1,000 ML IV SCH (09:56)
[2018-01-27] MEDS: ONDANSETRON PF 4 MG/2 ML VIAL. IV PRN ×2 (09:56→19:50)
--- NOTE | 2018-01-27 10:36 | PDOC ---
PROGRESS NOTES History of Present Illness History of Present Illness ASSESSMENT AND PLAN: Possible appendicitis. admitted. IV antibiotics, IV fluids, p.r.n. narcotics, p.r.n. Zofran. Consult Gastroenterology, consult General Surgery consult Cardiology. Home meds. Frequent labs. Dilated appendix - low probability of appendicitis, high risk for surgery/ extensive cardiac history Vitals Vitals Vital Signs Date Time Temp Pulse Resp B/P (MAP) Pulse Ox O2 Delivery O2 Flow Rate FiO2 01/27/18 07:57 Room Air 01/27/18 07:00 98.0 80 14 157/88 (111) 97 98.0 Physical Exam General: Alert, Oriented X3, Cooperative, No acute distress Heart: Regular rate, Normal S1, Normal S2 Lungs: Clear Abdomen: Soft, Other (ND, tenderness to RLQ, right mid abdomen ) Extremities: No clubbing, No cyanosis Skin: No significant lesion Labs LABS Laboratory Tests Test 01/26/18 12:20 01/26/18 19:24 01/26/18 19:30 01/27/18 04:05 Troponin I Quantitative < 0.017 ng/mL (0.000-0.055) < 0.017 ng/mL (0.000-0.055) Glucose (Fingerstick) 107 mg/dL (70-99) Lactic Acid Level 0.5 mmol/L (0.4-2.0) White Blood Count 5.1 x10^3/uL (4.0-11.0) Red Blood Count 4.31 x10^6/uL (4.30-5.70) Hemoglobin 13.5 g/dL (13.0-17.5) Hematocrit 38.2 % (39.0-53.0) Mean Corpuscular Volume 89 fL (79-100) Mean Corpuscular Hemoglobin 31 pg (25-35) Mean Corpuscular Hemoglobin Concent 35 g/dL (31-37) Red Cell Distribution Width 13.9 % (11.5-14.5) Platelet Count 167 x10^3/uL (140-400) Neutrophils (%) (Auto) 66 % (31-73) Lymphocytes (%) (Auto) 22 % (24-48) Monocytes (%) (Auto) 8 % (0-9) Eosinophils (%) (Auto) 3 % (0-3) Basophils (%) (Auto) 1 % (0-3) Neutrophils # (Auto) 3.4 x10^3uL (1.8-7.7) Lymphocytes # (Auto) 1.1 x10^3/uL (1.0-4.8) Monocytes # (Auto) 0.4 x10^3/uL (0.0-1.1) Eosinophils # (Auto) 0.2 x10^3/uL (0.0-0.7) Basophils # (Auto) 0.0 x10^3/uL (0.0-0.2) Sodium Level 142 mmol/L (136-145) Potassium Level 4.2 mmol/L (3.5-5.1) Chloride Level 107 mmol/L (98-107) Carbon Dioxide Level 25 mmol/L (21-32) Anion Gap 10 (6-14) Blood Urea Nitrogen 10 mg/dL (8-26) Creatinine 0.8 mg/dL (0.7-1.3) Estimated GFR (Cockcroft-Gault) 100.0 Glucose Level 77 mg/dL (70-99) Calcium Level 8.5 mg/dL (8.5-10.1) Triglycerides Level 116 mg/dL (0-150) Cholesterol Level 70 mg/dL (0-200) LDL Cholesterol, Calculated 21 mg/dL (0-100) VLDL Cholesterol, Calculated 23 mg/dL (0-40) Non-HDL Cholesterol Calculated 44 mg/dL (0-129) HDL Cholesterol 26 mg/dL (40-60) Cholesterol/HDL Ratio 2.7 Lipase 77 U/L (73-393) Test 01/27/18 07:29 Glucose (Fingerstick) 84 mg/dL (70-99) Assessment and Plan Assessmemt and Plan Problems Medical Problems: (1) Abdominal pain Status: Acute Comment Review of Relevant I have reviewed the following items otis (where applicable) has been applied. Labs Laboratory Tests Test 01/26/18 01:20 01/26/18 04:15 01/26/18 06:06 01/26/18 07:00 White Blood Count 8.0 x10^3/uL (4.0-11.0) Red Blood Count 5.00 x10^6/uL (4.30-5.70) Hemoglobin 15.6 g/dL (13.0-17.5) Hematocrit 44.6 % (39.0-53.0) Mean Corpuscular Volume 89 fL (79-100) Mean Corpuscular Hemoglobin 31 pg (25-35) Mean Corpuscular Hemoglobin Concent 35 g/dL (31-37) Red Cell Distribution Width 14.0 % (11.5-14.5) Platelet Count 196 x10^3/uL (140-400) Neutrophils (%) (Auto) 75 % (31-73) Lymphocytes (%) (Auto) 16 % (24-48) Monocytes (%) (Auto) 7 % (0-9) Eosinophils (%) (Auto) 2 % (0-3) Basophils (%) (Auto) 0 % (0-3) Neutrophils # (Auto) 6.0 x10^3uL (1.8-7.7) Lymphocytes # (Auto) 1.3 x10^3/uL (1.0-4.8) Monocytes # (Auto) 0.6 x10^3/uL (0.0-1.1) Eosinophils # (Auto) 0.1 x10^3/uL (0.0-0.7) Basophils # (Auto) 0.0 x10^3/uL (0.0-0.2) Prothrombin Time 13.6 SEC (11.7-14.0) Prothromb Time International Ratio 1.1 (0.8-1.1) Activated Partial Thromboplast Time 34 SEC (24-38) Sodium Level 141 mmol/L (136-145) Potassium Level 4.5 mmol/L (3.5-5.1) Chloride Level 103 mmol/L (98-107) Carbon Dioxide Level 27 mmol/L (21-32) Anion Gap 11 (6-14) Blood Urea Nitrogen 15 mg/dL (8-26) Creatinine 1.2 mg/dL (0.7-1.3) Estimated GFR (Cockcroft-Gault) 62.6 Glucose Level 137 mg/dL (70-99) Lactic Acid Level 2.5 mmol/L (0.4-2.0) 2.1 mmol/L (0.4-2.0) Calcium Level 8.7 mg/dL (8.5-10.1) Total Bilirubin 0.3 mg/dL (0.2-1.0) Direct Bilirubin 0.1 mg/dL (0.0-0.2) Aspartate Amino Transf (AST/SGOT) 20 U/L (15-37) Alanine Aminotransferase (ALT/SGPT) 26 U/L (16-63) Alkaline Phosphatase 89 U/L (46-116) Troponin I Quantitative < 0.017 ng/mL (0.000-0.055) 0.025 ng/mL (0.000-0.055) RH-Xji-T-Type Natriuretic Peptide 451 pg/mL (0-124) Total Protein 6.3 g/dL (6.4-8.2) Albumin 3.5 g/dL (3.4-5.0) Lipase 524 U/L (73-393) Urine Collection Type Unknown Urine Color Yellow Urine Clarity Clear Urine pH 5.5 Urine Specific [place] >=1.030 Urine Protein Negative mg/dL (NEG-TRACE) Urine Glucose (UA) Negative mg/dL (NEG) Urine Ketones (Stick) Trace mg/dL (NEG) Urine Blood Negative (NEG) Urine Nitrite Negative (NEG) Urine Bilirubin Negative (NEG) Urine Urobilinogen Dipstick 0.2 mg/dL (0.2 mg/dL) Urine Leukocyte Esterase Negative (NEG) Urine RBC 0 /HPF (0-2) Urine WBC Occ /HPF (0-4) Urine Squamous Epithelial Cells Occ /LPF Urine Bacteria 0 /HPF (0-FEW) Urine Hyaline Casts Few /HPF Urine Mucus Slight /LPF Nasal Screen MRSA (PCR) Negative (Negative) Test 01/26/18 12:20 01/26/18 19:24 01/26/18 19:30 01/27/18 04:05 Troponin I Quantitative < 0.017 ng/mL (0.000-0.055) < 0.017 ng/mL (0.000-0.055) Glucose (Fingerstick) 107 mg/dL (70-99) Lactic Acid Level 0.5 mmol/L (0.4-2.0) White Blood Count 5.1 x10^3/uL (4.0-11.0) Red Blood Count 4.31 x10^6/uL (4.30-5.70) Hemoglobin 13.5 g/dL (13.0-17.5) Hematocrit 38.2 % (39.0-53.0) Mean Corpuscular Volume 89 fL (79-100) Mean Corpuscular Hemoglobin 31 pg (25-35) Mean Corpuscular Hemoglobin Concent 35 g/dL (31-37) Red Cell Distribution Width 13.9 % (11.5-14.5) Platelet Count 167 x10^3/uL (140-400) Neutrophils (%) (Auto) 66 % (31-73) Lymphocytes (%) (Auto) 22 % (24-48) Monocytes (%) (Auto) 8 % (0-9) Eosinophils (%) (Auto) 3 % (0-3) Basophils (%) (Auto) 1 % (0-3) Neutrophils # (Auto) 3.4 x10^3uL (1.8-7.7) Lymphocytes # (Auto) 1.1 x10^3/uL (1.0-4.8) Monocytes # (Auto) 0.4 x10^3/uL (0.0-1.1) Eosinophils # (Auto) 0.2 x10^3/uL (0.0-0.7) Basophils # (Auto) 0.0 x10^3/uL (0.0-0.2) Sodium Level 142 mmol/L (136-145) Potassium Level 4.2 mmol/L (3.5-5.1) Chloride Level 107 mmol/L (98-107) Carbon Dioxide Level 25 mmol/L (21-32) Anion Gap 10 (6-14) Blood Urea Nitrogen 10 mg/dL (8-26) Creatinine 0.8 mg/dL (0.7-1.3) Estimated GFR (Cockcroft-Gault) 100.0 Glucose Level 77 mg/dL (70-99) Calcium Level 8.5 mg/dL (8.5-10.1) Triglycerides Level 116 mg/dL (0-150) Cholesterol Level 70 mg/dL (0-200) LDL Cholesterol, Calculated 21 mg/dL (0-100) VLDL Cholesterol, Calculated 23 mg/dL (0-40) Non-HDL Cholesterol Calculated 44 mg/dL (0-129) HDL Cholesterol 26 mg/dL (40-60) Cholesterol/HDL Ratio 2.7 Lipase 77 U/L (73-393) Test 01/27/18 07:29 Glucose (Fingerstick) 84 mg/dL (70-99) Laboratory Tests Test 01/26/18 12:20 01/26/18 19:24 01/26/18 19:30 01/27/18 04:05 Troponin I Quantitative < 0.017 ng/mL (0.000-0.055) < 0.017 ng/mL (0.000-0.055) Glucose (Fingerstick) 107 mg/dL (70-99) Lactic Acid Level 0.5 mmol/L (0.4-2.0) White Blood Count 5.1 x10^3/uL (4.0-11.0) Red Blood Count 4.31 x10^6/uL (4.30-5.70) Hemoglobin 13.5 g/dL (13.0-17.5) Hematocrit 38.2 % (39.0-53.0) Mean Corpuscular Volume 89 fL (79-100) Mean Corpuscular Hemoglobin 31 pg (25-35) Mean Corpuscular Hemoglobin Concent 35 g/dL (31-37) Red Cell Distribution Width 13.9 % (11.5-14.5) Platelet Count 167 x10^3/uL (140-400) Neutrophils (%) (Auto) 66 % (31-73) Lymphocytes (%) (Auto) 22 % (24-48) Monocytes (%) (Auto) 8 % (0-9) Eosinophils (%) (Auto) 3 % (0-3) Basophils (%) (Auto) 1 % (0-3) Neutrophils # (Auto) 3.4 x10^3uL (1.8-7.7) Lymphocytes # (Auto) 1.1 x10^3/uL (1.0-4.8) Monocytes # (Auto) 0.4 x10^3/uL (0.0-1.1) Eosinophils # (Auto) 0.2 x10^3/uL (0.0-0.7) Basophils # (Auto) 0.0 x10^3/uL (0.0-0.2) Sodium Level 142 mmol/L (136-145) Potassium Level 4.2 mmol/L (3.5-5.1) Chloride Level 107 mmol/L (98-107) Carbon Dioxide Level 25 mmol/L (21-32) Anion Gap 10 (6-14) Blood Urea Nitrogen 10 mg/dL (8-26) Creatinine 0.8 mg/dL (0.7-1.3) Estimated GFR (Cockcroft-Gault) 100.0 Glucose Level 77 mg/dL (70-99) Calcium Level 8.5 mg/dL (8.5-10.1) Triglycerides Level 116 mg/dL (0-150) Cholesterol Level 70 mg/dL (0-200) LDL Cholesterol, Calculated 21 mg/dL (0-100) VLDL Cholesterol, Calculated 23 mg/dL (0-40) Non-HDL Cholesterol Calculated 44 mg/dL (0-129) HDL Cholesterol 26 mg/dL (40-60) Cholesterol/HDL Ratio 2.7 Lipase 77 U/L (73-393) Test 01/27/18 07:29 Glucose (Fingerstick) 84 mg/dL (70-99) Microbiology 01/26/18 Blood Culture - Preliminary, Resulted NO GROWTH AFTER 1 DAY Medications Current Medications Morphine Sulfate (Morphine Sulfate) 4 mg 1X ONCE IV ; Start 01/26/18 at 02:00; Stop 01/26/18 at 02:28; Status DC Iohexol (Omnipaque 300 Mg/ml) 75 ml 1X ONCE IV Last administered on 01/26/18at 02:31; Start 01/26/18 at 02:15; Stop 01/26/18 at 02:16; Status DC Info (CONTRAST GIVEN -- Rx MONITORING) 1 each PRN DAILY PRN MC SEE COMMENTS; Start 01/26/18 at 02:15; Stop 01/28/18 at 02:14 Sodium Chloride 1,000 ml @ 1,000 mls/hr 1X ONCE IV Last administered on at 02:12; Start 01/26/18 at 02:15; Stop 01/26/18 at 03:14; Status DC Ondansetron HCl (Zofran) 4 mg PRN Q8HRS PRN IV NAUSEA/VOMITING; Start 01/26/18 at 02:30; Stop 01/27/18 at 02:29; Status DC Fentanyl Citrate (Fentanyl 2ml Vial) 50 mcg PRN Q1HR PRN IV PAIN Last administered on 01/26/18at 19:40; Start 01/26/18 at 02:30; Stop 01/27/18 at 02:29 ; Status DC Sodium Chloride 500 ml @ 500 mls/hr 1X ONCE IV Last administered on at 04:05; Start 01/26/18 at 04:15; Stop 01/26/18 at 05:14; Status DC Vancomycin HCl (Vanco Per Pharmacy) 1 each PRN DAILY PRN MC SEE COMMENTS Last administered on 01/26/18at 09:24; Start 01/26/18 at 04:15 Levofloxacin/ Dextrose 150 ml @ 100 mls/hr 1X ONCE IV Last administered on at 04:47; Start 01/26/18 at 04:15; Stop 01/26/18 at 05:44; Status DC Norepinephrine Bitartrate 250 ml @ 1.875 mls/ hr CONT PRN IV SEE I/O RECORD; Start 01/26/18 at 04:30; Stop 01/26/18 at 17:29; Status DC Sodium Chloride 500 ml @ 500 mls/hr 1X ONCE IV Last administered on at 04:10; Start 01/26/18 at 05:00; Stop 01/26/18 at 05:59; Status DC Sodium Chloride 1,000 ml @ 75 mls/hr [id number] IV Last administered on at 09:56; Start 01/26/18 at 05:00 Vancomycin HCl 1.75 gm/Sodium Chloride 500 ml @ 250 mls/hr 1X ONCE IV Last administered on 01/26/18at 05:48; Start 01/26/18 at 05:00; Stop 01/26/18 at 06:59 ; Status DC Metronidazole 100 ml @ 100 mls/hr 1X ONCE IV Last administered on 01/26/18at 05:47; Start 01/26/18 at 05:30; Stop 01/26/18 at 06:29; Status DC Vancomycin HCl 1 gm/Sodium Chloride 250 ml @ 250 mls/hr Q12H IV Last administered on 01/27/18at 05:44; Start 01/26/18 at 18:00 Vancomycin HCl (Vancomycin Trough Level) 1 each 1X ONCE MC ; Start 01/27/18 at 17:30; Stop 01/27/18 at 17:31 Pantoprazole Sodium (PROTONIX VIAL for IV PUSH) 40 mg DAILYAC IVP Last administered on 01/27/18at 05:43; Start 01/26/18 at 10:00 Metoprolol Tartrate (Lopressor Vial) 5 mg Q6HRS IVP Last administered on at 05:43; Start 01/26/18 at 18:00 Sodium Chloride 1,000 ml @ 75 mls/hr [id number] IV ; Start 01/26/18 at 19:30; Status Cancel Lorazepam (Ativan) 0.5 mg 1X ONCE IV Last administered on 01/27/18at 00:04; Start 01/26/18 at 22:15; Stop 01/26/18 at 22:16; Status DC Morphine Sulfate (Morphine Sulfate) 4 mg PRN Q4HRS PRN IV PAIN Last administered on 01/27/18at 07:27; Start 01/26/18 at 22:00 Ondansetron HCl (Zofran) 4 mg PRN Q8HRS PRN IV NAUSEA/VOMITING Last administered on 01/27/18at 09:56; Start 01/27/18 at 09:45 Active Scripts Active Metoprolol Tartrate 100 Mg Tablet 1 Tab PO BID Digoxin 125 Mcg Tablet 125 Mcg PO DAILY Reported Lisinopril 5 Mg Tablet 1 Tab PO DAILY Spironolactone 25 Mg Tablet 1 Tab PO DAILY Tizanidine Hcl 4 Mg Tablet 0.5 Tab PO TID Amiodarone Hcl 200 Mg Tablet 1 Tab PO DAILY Metformin Hcl 500 Mg Tablet 500 Mg PO BIDWMEALS Aspir 81 (Aspirin) 81 Mg Tablet.dr 1 Tab PO DAILY Vitals/I & O Vital Sign - Last 24 Hours 01/26/18 01/26/18 01/26/18 01/26/18 11:00 12:00 12:18 13:00 Pulse 68 71 74 Resp 15 15 15 B/P (MAP) 125/74 (91) 134/74 (94) 135/74 (94) Pulse Ox 99 99 99 99 O2 Delivery Room Air Room Air Room Air Room Air 01/26/18 01/26/18 01/26/18 01/26/18 14:33 15:00 16:47 17:10 Temp 98.2 98.2 Pulse 74 76 Resp 15 18 B/P (MAP) 125/80 (95) 170/102 (124) Pulse Ox 99 100 100 98 O2 Delivery Room Air Room Air Room Air Room Air 01/26/18 01/26/18 01/26/18 01/26/18 17:22 17:58 18:00 19:00 Temp 98.3 98.3 Pulse 76 72 Resp 18 B/P (MAP) 170/102 159/96 (117) Pulse Ox 100 100 100 O2 Delivery Room Air Room Air 01/26/18 01/26/18 01/26/18 01/26/18 19:40 20:00 20:10 22:22 O2 Delivery Room Air Room Air Room Air Room Air 01/26/18 01/27/18 01/27/18 01/27/18 23:00 00:04 03:00 03:02 Temp 98.3 98.2 98.3 98.2 Pulse 79 79 80 Resp 18 18 B/P (MAP) 141/86 (104) 141/86 159/96 (117) Pulse Ox 96 95 O2 Delivery Room Air Room Air Room Air 01/27/18 01/27/18 01/27/18 01/27/18 05:43 07:00 07:27 07:39 Temp 98.0 98.0 Pulse 80 80 Resp 14 B/P (MAP) 159/96 157/88 (111) Pulse Ox 97 O2 Delivery Room Air Room Air Room Air 01/27/18 07:57 O2 Delivery Room Air Intake and Output 01/26/18 01/26/18 01/27/18 15:00 23:00 07:00 Intake Total 0 ml 0 ml Output Total 300 ml 500 ml Balance 0 ml -300 ml -500 ml SARAH RUDD MD Jan 27, 2018 10:36
--- NOTE | 2018-01-27 10:39 | CARD ---
MR#: [id number] Date of Study: 01/27/2018 Ordering Physician: MANSI CASTILLO, Referring Physician: SARAH RUDD, Tech: Lynn Lopez WALESKA APPROVED REPORT EXAM: Two-dimensional and M-mode echocardiogram with Doppler and color Doppler. Other Information Quality : AverageHR: 85bpm Rhythm : NSR INDICATION Chest Pain Surgery/Intervention CABD DIMENSIONS RVDd3.4 (2.9-3.5cm)Left Atrium(2D)4.7 (1.6-4.0cm) IVSd1.2 (0.7-1.1cm)Aortic Root(2D)3.1 (2.0-3.7cm) LVDd5.2 (3.9-5.9cm)LVOT Diameter2.0 (1.8-2.4cm) PWd1.2 (0.7-1.1cm)LVDs4.2 (2.5-4.0cm) FS (%) 19.1 %SV50.3 ml LVEF(%)39.2 (>50%) Aortic Valve AoV Peak Danie.145.7cm/sAoV VTI29.5cm AO Peak GR.8.5mmHgLVOT Peak Danie.81.8cm/s AO Mean GR.6mmHgAVA (VMAX)1.76cm2 SADE (VTI)1.90cm2 Mitral Valve MV E Gzlgdgbh374.1cm/sMV E Peak Gr.16mmHg MV DECEL [id number] A Pddzpqsr233.4cm/s MV E Mean Gr.8mmHgE/A Ratio1.2 MV A [id number] Pulmonary Valve PV Peak Uzkypppy256.0cm/s Tricuspid Valve TR P. [id number]/sRAP [id number] TR Peak Gr.11ysUoTDWY50szVp LEFT VENTRICLE The left ventricle is normal size. There is mild concentric left ventricular hypertrophy. The ejectio n fraction is moderate to severely impaired. The Ejection Fraction is 35%. There is severe hypokinesi s of the distal 1/2 of the LV, involving mostly the anterior, septal and apical segments, suggestive of prior infarct. Tissue Doppler imaging reveals moderate left ventricular diastolic dysfunction. RIGHT VENTRICLE The right ventricle is normal size. There is normal right ventricular wall thickness. The right ventr icular systolic function is normal. Pacer lead noted in RV/RA ATRIA The left atrium is moderately dilated. The right atrium size is normal. The interatrial septum is int act with no evidence for an atrial septal defect or patent foramen ovale as noted on 2-D or Doppler i maging. AORTIC VALVE The aortic valve is not well visualized. Doppler and Color Flow revealed no significant aortic regurg itation. There is no significant aortic valvular stenosis. MITRAL VALVE Mitral annular calcification, there is a mitral ring present. There is no evidence of mitral valve pr olapse. There is moderate mitral valve stenosis. Calculated mitral valve area is 0.9 cm2 with maximum pressure gradient of 16 mmHg and mean pressure gradient of 8.2 mmHg. Doppler and Color-flow revealed trace mitral regurgitation. TRICUSPID VALVE The tricuspid valve is normal in structure and function. Doppler and Color Flow revealed trace tricus pid regurgitation. There is mild pulmonary hypertension. The PA pressure was estimated at 39 mmHg. Th ere is no tricuspid valve prolapse or vegetation. There is no tricuspid valve stenosis. PULMONIC VALVE Pulmonic valve not well visualized. Doppler and Color Flow revealed trace to mild pulmonic valvular r egurgitation. There is no pulmonic valvular stenosis. GREAT VESSELS The aortic root is normal in size. The ascending aorta is normal in size. The IVC is normal in size a nd collapses >50% with inspiration. PERICARDIAL EFFUSION There is no evidence of significant pericardial effusion. Critical Notification Critical Value: No <Conclusion> The ejection fraction is moderate to severely impaired. The Ejection Fraction is 35%. There is severe hypokinesis of the distal 1/2 of the LV, involving mostly the anterior, septal and ap ical segments, suggestive of prior infarct. Pacer lead noted in RV/RA Mitral annular calcification, there is a mitral ring present. There is moderate mitral valve stenosis. Calculated mitral valve area is 0.9 cm2 with maximum pressur e gradient of 16 mmHg and mean pressure gradient of 8.2 mmHg. Doppler and Color Flow revealed trace tricuspid regurgitation. There is mild pulmonary hypertension. The PA pressure was estimated at 39 mmHg. Signed by : Huy Hatfield, Electronically Approved : 01/27/2018 10:37:43
[2018-01-27 11:00] VITALS: BP 130/53
[2018-01-27] MEDS ORDERED: PANT40GR PO (11:28)
[2018-01-27] MEDS ORDERED: ALPR1TAB2 PO (11:28)
[2018-01-27] MEDS ORDERED: HYDR-2761 PO (11:28)
[2018-01-27] MEDS ORDERED: METO-247 PO (11:28)
[2018-01-27] MEDS ORDERED: LEVE500T6 PO (11:28)
[2018-01-27] MEDS ORDERED: MAGN400T22 PO (11:28)
[2018-01-27] MEDS ORDERED: AMIT10TA PO (11:28)
[2018-01-27] MEDS ORDERED: METO10TA81 PO (11:28)
[2018-01-27] MEDS ORDERED: POTA20TA82 PO (11:28)
[2018-01-27] MEDS ORDERED: ATORVASTATIN CA80 MG PO (11:28)
[2018-01-27] MEDS ORDERED: ONDA4TAB12 PO (11:28)
[2018-01-27] MEDS ORDERED: GABA300C18 PO (11:28)
[2018-01-27] MEDS ORDERED: LISI10TA2 PO (11:28)
[2018-01-27] MEDS ORDERED: SITA1TAB11 PO (11:30)
--- NOTE | 2018-01-27 12:23 | PDOC ---
Subjective: Subjective: Right-sided abd pain, wants water. Denies h/o GERD but has chronic nausea on Protonix, Reglan, and Zofran. ?attempted GES in the past, frequent marijuana to help appetite No pancreas history, s/p cholecystectomy. Objective: Objective: RN says waiting to d/w surgeon re: diet. Vital Signs: Vital Signs Date Time Temp Pulse Resp B/P (MAP) Pulse Ox O2 Delivery O2 Flow Rate FiO2 01/27/18 12:06 Room Air 01/27/18 11:35 80 130/53 01/27/18 11:00 98.2 18 96 98.2 Labs: Laboratory Tests Test 01/26/18 12:20 01/26/18 19:24 01/26/18 19:30 01/27/18 04:05 Troponin I Quantitative < 0.017 ng/mL < 0.017 ng/mL Glucose (Fingerstick) 107 mg/dL Lactic Acid Level 0.5 mmol/L White Blood Count 5.1 x10^3/uL Red Blood Count 4.31 x10^6/uL Hemoglobin 13.5 g/dL Hematocrit 38.2 % Mean Corpuscular Volume 89 fL Mean Corpuscular Hemoglobin 31 pg Mean Corpuscular Hemoglobin Concent 35 g/dL Red Cell Distribution Width 13.9 % Platelet Count 167 x10^3/uL Neutrophils (%) (Auto) 66 % Lymphocytes (%) (Auto) 22 % Monocytes (%) (Auto) 8 % Eosinophils (%) (Auto) 3 % Basophils (%) (Auto) 1 % Neutrophils # (Auto) 3.4 x10^3uL Lymphocytes # (Auto) 1.1 x10^3/uL Monocytes # (Auto) 0.4 x10^3/uL Eosinophils # (Auto) 0.2 x10^3/uL Basophils # (Auto) 0.0 x10^3/uL Sodium Level 142 mmol/L Potassium Level 4.2 mmol/L Chloride Level 107 mmol/L Carbon Dioxide Level 25 mmol/L Anion Gap 10 Blood Urea Nitrogen 10 mg/dL Creatinine 0.8 mg/dL Estimated GFR (Cockcroft-Gault) 100.0 Glucose Level 77 mg/dL Calcium Level 8.5 mg/dL Triglycerides Level 116 mg/dL Cholesterol Level 70 mg/dL LDL Cholesterol, Calculated 21 mg/dL VLDL Cholesterol, Calculated 23 mg/dL Non-HDL Cholesterol Calculated 44 mg/dL HDL Cholesterol 26 mg/dL Cholesterol/HDL Ratio 2.7 Lipase 77 U/L Test 01/27/18 07:29 01/27/18 11:31 Glucose (Fingerstick) 84 mg/dL 78 mg/dL PE: GEN: NAD LUNGS: CTAB HEART: RRR ABD: right-sided tenderness - upper and lower, some periumbilical NEURO/PSYCH: A & O 3, flat A/P: Abd pain, chronic nausea, chronic pain Dilated appendix - low probability of appendicitis, high risk for surgery/ extensive cardiac history Elevated lipase - resolved +marijuana -- Continue pantoprazole, consider resuming Reglan when eating (okay to try eating per GI), consider GES down the road for chronic issues. ZINA PEARL Jan 27, 2018 12:23
[2018-01-27 15:00] VITALS: BP 187/102
[2018-01-27] MEDS: METOCLOPRAMIDE HCL 10 MG/2 ML VIAL. IV PRN (16:05)
[2018-01-27] MEDS: MORPHINE SULFATE 10 MG/ML VIAL. IV PRN ×2 (16:05→20:17)
[2018-01-27 19:00] VITALS: BP 163/98
[2018-01-27] MEDS: ALPRAZolam 1 MG TABLET PO SCH (19:51)
[2018-01-27] MEDS: levETIRAcetam 500 MG TABLET PO SCH (20:20)
[2018-01-27] MEDS: AMITRIPTYLINE HCL 10 MG TABLET. PO SCH (20:22)
[2018-01-27] MEDS: tiZANidine 4 MG TABLET. PO SCH (20:23)
[2018-01-27] MEDS: ATORVASTATIN CALCIUM 40 MG TABLET. PO SCH (20:23)
[2018-01-27] MEDS: GABAPENTIN 300 MG CAPSULE. PO SCH (20:24)
[2018-01-27] MEDS: METOPROLOL SUCC 24HR ER 100 MG TAB.ER.24H. PO SCH (20:45)
[2018-01-27 22:44] VITALS: BP 142/84
[2018-01-28] MEDS: MORPHINE SULFATE 10 MG/ML VIAL. IV PRN ×5 (00:17→21:09)
[2018-01-28] MEDS: IV NORMAL SALINE 1000ML BAG 1,000 ML IV SCH ×3 (00:20→19:37)
[2018-01-28] MEDS: HYDROcodone/APAP 5/325MG 1 TAB TABLET PO PRN ×2 (01:14→08:53)
[2018-01-28] MEDS: METOCLOPRAMIDE HCL 10 MG/2 ML VIAL. IV PRN ×2 (01:17→19:37)
[2018-01-28 03:00] VITALS: BP 129/83
[2018-01-28 05:19] LABS: CALCIUM 8.7 mg/dL (8.5-10.1); CREATININE 0.9 mg/dL (0.7-1.3); GFR 87.3; POTASSIUM 4.8 mmol/L (3.5-5.1)
[2018-01-28 05:30] LABS: BASO % 1 % (0-3); EOS # 0.2 x10^3/uL (0.0-0.7); EOS % 5 % (0-3); HEMATOCRIT 38.7 % (39.0-53.0); HEMOGLOBIN 13.2 g/dL (13.0-17.5); LYMPH # 0.9 x10^3/uL (1.0-4.8); LYMPH % 24 % (24-48); MEAN CORPUSCULAR HEMOGLOBIN 30 pg (25-35); MEAN CORPUSCULAR HGB CONC 34 g/dL (31-37); MEAN CORPUSCULAR VOLUME 88 fL (79-100); MONO # 0.3 x10^3/uL (0.0-1.1); MONO % 9 % (0-9); NEUT # 2.3 x10^3uL (1.8-7.7); NEUT % 62 % (31-73); PLATELET COUNT 173 x10^3/uL (140-400); RED BLOOD COUNT 4.38 x10^6/uL (4.30-5.70); WHITE BLOOD COUNT 3.8 x10^3/uL (4.0-11.0)
[2018-01-28] MEDS ORDERED: DEXTROSE 50% 25 GM / 50ML DISP.SYRIN. IV PRN (06:00)
[2018-01-28] MEDS: PANTOPRAZOLE IV PUSH 40 MG VIAL. IVP SCH (06:08)
[2018-01-28 07:00] VITALS: BP 129/83
[2018-01-28] MEDS: levETIRAcetam 500 MG TABLET PO SCH ×2 (08:52→21:11)
[2018-01-28] MEDS: POTASSIUM CHLORIDE 20 MEQ TABLET.ER. PO SCH (08:52)
[2018-01-28] MEDS: GABAPENTIN 300 MG CAPSULE. PO SCH ×3 (08:52→21:11)
[2018-01-28] MEDS: tiZANidine 4 MG TABLET. PO SCH ×3 (08:52→21:12)
[2018-01-28] MEDS: ALPRAZolam 1 MG TABLET PO SCH ×3 (08:52→21:12)
[2018-01-28] MEDS: AMIODARONE HCL 200 MG TABLET. PO SCH (08:52)
[2018-01-28] MEDS: LISINOPRIL 10 MG TABLET PO SCH (08:53)
[2018-01-28] MEDS: SPIRONOLACTONE 25 MG TABLET PO SCH (08:55)
--- NOTE | 2018-01-28 09:06 | PDOC ---
SURGICAL PROGRESS NOTE Subjective Pt reports overall feeling better, hungry, wants to eat, does note persistent right sided abd pain, "my kidney hurts" Vital Signs Vital Signs Date Time Temp Pulse Resp B/P (MAP) Pulse Ox O2 Delivery O2 Flow Rate FiO2 01/28/18 08:53 71 129/83 01/28/18 08:53 Room Air 01/28/18 07:00 97.5 16 98 97.5 I&O Intake and Output 01/28/18 07:00 Intake Total 800 ml Output Total 1250 ml Balance -450 ml Intake Oral 0 ml IV Total 800 ml Output Urine Total 1250 ml General: Alert, Oriented X3, Cooperative, No acute distress Abdomen: Soft, Other (mild TTP RUQ, Right flank) Labs Laboratory Tests Test 01/26/18 12:20 01/26/18 19:24 01/26/18 19:30 01/27/18 04:05 Troponin I Quantitative < 0.017 ng/mL (0.000-0.055) < 0.017 ng/mL (0.000-0.055) Glucose (Fingerstick) 107 mg/dL (70-99) Lactic Acid Level 0.5 mmol/L (0.4-2.0) White Blood Count 5.1 x10^3/uL (4.0-11.0) Red Blood Count 4.31 x10^6/uL (4.30-5.70) Hemoglobin 13.5 g/dL (13.0-17.5) Hematocrit 38.2 % (39.0-53.0) Mean Corpuscular Volume 89 fL (79-100) Mean Corpuscular Hemoglobin 31 pg (25-35) Mean Corpuscular Hemoglobin Concent 35 g/dL (31-37) Red Cell Distribution Width 13.9 % (11.5-14.5) Platelet Count 167 x10^3/uL (140-400) Neutrophils (%) (Auto) 66 % (31-73) Lymphocytes (%) (Auto) 22 % (24-48) Monocytes (%) (Auto) 8 % (0-9) Eosinophils (%) (Auto) 3 % (0-3) Basophils (%) (Auto) 1 % (0-3) Neutrophils # (Auto) 3.4 x10^3uL (1.8-7.7) Lymphocytes # (Auto) 1.1 x10^3/uL (1.0-4.8) Monocytes # (Auto) 0.4 x10^3/uL (0.0-1.1) Eosinophils # (Auto) 0.2 x10^3/uL (0.0-0.7) Basophils # (Auto) 0.0 x10^3/uL (0.0-0.2) Sodium Level 142 mmol/L (136-145) Potassium Level 4.2 mmol/L (3.5-5.1) Chloride Level 107 mmol/L (98-107) Carbon Dioxide Level 25 mmol/L (21-32) Anion Gap 10 (6-14) Blood Urea Nitrogen 10 mg/dL (8-26) Creatinine 0.8 mg/dL (0.7-1.3) Estimated GFR (Cockcroft-Gault) 100.0 Glucose Level 77 mg/dL (70-99) Calcium Level 8.5 mg/dL (8.5-10.1) Triglycerides Level 116 mg/dL (0-150) Cholesterol Level 70 mg/dL (0-200) LDL Cholesterol, Calculated 21 mg/dL (0-100) VLDL Cholesterol, Calculated 23 mg/dL (0-40) Non-HDL Cholesterol Calculated 44 mg/dL (0-129) HDL Cholesterol 26 mg/dL (40-60) Cholesterol/HDL Ratio 2.7 Lipase 77 U/L (73-393) Test 01/27/18 07:29 01/27/18 11:31 01/27/18 16:36 01/27/18 20:48 Glucose (Fingerstick) 84 mg/dL (70-99) 78 mg/dL (70-99) 71 mg/dL (70-99) 60 mg/dL (70-99) Test 01/27/18 21:45 01/28/18 04:25 01/28/18 07:29 Glucose (Fingerstick) 69 mg/dL (70-99) 86 mg/dL (70-99) White Blood Count 3.8 x10^3/uL (4.0-11.0) Red Blood Count 4.38 x10^6/uL (4.30-5.70) Hemoglobin 13.2 g/dL (13.0-17.5) Hematocrit 38.7 % (39.0-53.0) Mean Corpuscular Volume 88 fL (79-100) Mean Corpuscular Hemoglobin 30 pg (25-35) Mean Corpuscular Hemoglobin Concent 34 g/dL (31-37) Red Cell Distribution Width 14.0 % (11.5-14.5) Platelet Count 173 x10^3/uL (140-400) Neutrophils (%) (Auto) 62 % (31-73) Lymphocytes (%) (Auto) 24 % (24-48) Monocytes (%) (Auto) 9 % (0-9) Eosinophils (%) (Auto) 5 % (0-3) Basophils (%) (Auto) 1 % (0-3) Neutrophils # (Auto) 2.3 x10^3uL (1.8-7.7) Lymphocytes # (Auto) 0.9 x10^3/uL (1.0-4.8) Monocytes # (Auto) 0.3 x10^3/uL (0.0-1.1) Eosinophils # (Auto) 0.2 x10^3/uL (0.0-0.7) Basophils # (Auto) 0.0 x10^3/uL (0.0-0.2) Sodium Level 141 mmol/L (136-145) Potassium Level 4.8 mmol/L (3.5-5.1) Chloride Level 104 mmol/L (98-107) Carbon Dioxide Level 31 mmol/L (21-32) Anion Gap 6 (6-14) Blood Urea Nitrogen 9 mg/dL (8-26) Creatinine 0.9 mg/dL (0.7-1.3) Estimated GFR (Cockcroft-Gault) 87.3 Glucose Level 111 mg/dL (70-99) Calcium Level 8.7 mg/dL (8.5-10.1) Laboratory Tests Test 01/27/18 11:31 01/27/18 16:36 01/27/18 20:48 01/27/18 21:45 Glucose (Fingerstick) 78 mg/dL (70-99) 71 mg/dL (70-99) 60 mg/dL (70-99) 69 mg/dL (70-99) Test 01/28/18 04:25 01/28/18 07:29 White Blood Count 3.8 x10^3/uL (4.0-11.0) Red Blood Count 4.38 x10^6/uL (4.30-5.70) Hemoglobin 13.2 g/dL (13.0-17.5) Hematocrit 38.7 % (39.0-53.0) Mean Corpuscular Volume 88 fL (79-100) Mean Corpuscular Hemoglobin 30 pg (25-35) Mean Corpuscular Hemoglobin Concent 34 g/dL (31-37) Red Cell Distribution Width 14.0 % (11.5-14.5) Platelet Count 173 x10^3/uL (140-400) Neutrophils (%) (Auto) 62 % (31-73) Lymphocytes (%) (Auto) 24 % (24-48) Monocytes (%) (Auto) 9 % (0-9) Eosinophils (%) (Auto) 5 % (0-3) Basophils (%) (Auto) 1 % (0-3) Neutrophils # (Auto) 2.3 x10^3uL (1.8-7.7) Lymphocytes # (Auto) 0.9 x10^3/uL (1.0-4.8) Monocytes # (Auto) 0.3 x10^3/uL (0.0-1.1) Eosinophils # (Auto) 0.2 x10^3/uL (0.0-0.7) Basophils # (Auto) 0.0 x10^3/uL (0.0-0.2) Sodium Level 141 mmol/L (136-145) Potassium Level 4.8 mmol/L (3.5-5.1) Chloride Level 104 mmol/L (98-107) Carbon Dioxide Level 31 mmol/L (21-32) Anion Gap 6 (6-14) Blood Urea Nitrogen 9 mg/dL (8-26) Creatinine 0.9 mg/dL (0.7-1.3) Estimated GFR (Cockcroft-Gault) 87.3 Glucose Level 111 mg/dL (70-99) Calcium Level 8.7 mg/dL (8.5-10.1) Glucose (Fingerstick) 86 mg/dL (70-99) Problem List Problems Medical Problems: (1) Abdominal pain Status: Acute Assessment/Plan abd pain, favor pancreatitis d/w GI, defer further w/u to them no obvious surgical indication and pt's is poor surgical candidate DRAGAN WARD MD Jan 28, 2018 09:06
[2018-01-28 11:00] VITALS: BP 119/78
--- NOTE | 2018-01-28 11:12 | PDOC ---
Subjective: Subjective: RLQ pain w/ sharp pain into belly button overnight. Hasn't eaten or stooled. Objective: Vital Signs: Vital Signs Date Time Temp Pulse Resp B/P (MAP) Pulse Ox O2 Delivery O2 Flow Rate FiO2 01/28/18 09:55 Room Air 01/28/18 08:53 71 129/83 01/28/18 07:00 97.5 16 98 97.5 Labs: Laboratory Tests Test 01/27/18 11:31 01/27/18 16:36 01/27/18 20:48 01/27/18 21:45 Glucose (Fingerstick) 78 mg/dL 71 mg/dL 60 mg/dL 69 mg/dL Test 01/28/18 04:25 01/28/18 07:29 White Blood Count 3.8 x10^3/uL Red Blood Count 4.38 x10^6/uL Hemoglobin 13.2 g/dL Hematocrit 38.7 % Mean Corpuscular Volume 88 fL Mean Corpuscular Hemoglobin 30 pg Mean Corpuscular Hemoglobin Concent 34 g/dL Red Cell Distribution Width 14.0 % Platelet Count 173 x10^3/uL Neutrophils (%) (Auto) 62 % Lymphocytes (%) (Auto) 24 % Monocytes (%) (Auto) 9 % Eosinophils (%) (Auto) 5 % Basophils (%) (Auto) 1 % Neutrophils # (Auto) 2.3 x10^3uL Lymphocytes # (Auto) 0.9 x10^3/uL Monocytes # (Auto) 0.3 x10^3/uL Eosinophils # (Auto) 0.2 x10^3/uL Basophils # (Auto) 0.0 x10^3/uL Sodium Level 141 mmol/L Potassium Level 4.8 mmol/L Chloride Level 104 mmol/L Carbon Dioxide Level 31 mmol/L Anion Gap 6 Blood Urea Nitrogen 9 mg/dL Creatinine 0.9 mg/dL Estimated GFR (Cockcroft-Gault) 87.3 Glucose Level 111 mg/dL Calcium Level 8.7 mg/dL Glucose (Fingerstick) 86 mg/dL PE: GEN: NAD, was asleep, a bit difficult to rouse LUNGS: CTAB HEART: RRR ABD: BS quiet, diffuse discomfort NEURO/PSYCH: A & O 3 A/P: Chronic pain -- Try clears, ADAT. Can change to PO PPI. Note has IV Regnayeli. ZINA PEARL Jan 28, 2018 11:12
--- NOTE | 2018-01-28 11:28 | PDOC ---
PROGRESS NOTES History of Present Illness History of Present Illness ASSESSMENT AND PLAN: doubt appendicitis. abdominal pain, uncontrolled admitted. IV antibiotics, IV fluids, p.r.n. narcotics, inc p.r.n. Zofran. Consult Gastroenterology, General Surgery following consult Cardiology. Home meds. Frequent labs. Dilated appendix - low probability of appendicitis, high risk for surgery/ extensive cardiac history Vitals Vitals Vital Signs Date Time Temp Pulse Resp B/P (MAP) Pulse Ox O2 Delivery O2 Flow Rate FiO2 01/28/18 09:55 Room Air 01/28/18 08:53 71 129/83 01/28/18 07:00 97.5 16 98 97.5 Physical Exam General: Alert, Oriented X3, Cooperative, No acute distress, mild distress Heart: Regular rate, Normal S1, Normal S2 Lungs: Clear Abdomen: Soft, Other (mild TTP RUQ, Right flank) Extremities: No clubbing, No cyanosis Skin: No significant lesion Labs LABS NDICATION: ABDOMEN PAIN, EVAL FOR APPY
75 ML OMNI 300 COMPARISON: December 02, 2017 TECHNIQUE: Axial CT images obtained through the abdomen and pelvis with contrast. One or more of the following individualized dose reduction techniques were utilized for this examination: 1. Automated exposure control; 2. Adjustment of the mA and/or kV according to patient size; 3. Use of iterative reconstruction technique. FINDINGS: Cystic changes at right lung base. Linear opacity as well as region of nodularity measuring up to about 16 mm at right chest base. Artificial mitral valve. AICD leads partially seen. Moderate to severe calcific atherosclerosis. Cholecystectomy clips. No peripancreatic fluid collection. Spleen unremarkable. No left-sided hydronephrosis. No right-sided hydronephrosis. Urinary bladder is partially distended. The suspected appendix measures approximately 10-11 mm. There is very little adjacent abdominal fat therefore difficult to assess whether there is adjacent inflammation. Retrocecal in location. There is a mildly prominent loops of small bowel on the left side the abdomen but no high-grade transition point to suggest obstruction. Degenerative changes throughout the spine with multilevel central canal and neural foraminal stenosis. IMPRESSION: 1. The appendix is dilated measuring up to about 10-11 mm. There is very little adjacent fat therefore difficult to assess for adjacent inflammatory changes but given the dilation if the patient has appropriate lab markers and clinical symptoms appendicitis is possible cause. 2. Linear opacity at right lung base with nodular component. Could be secondary to round atelectasis however was not also correlate with symptoms of infection to ensure there is not an infectious cause. Follow-up could be obtained to ensure that this decreases in severity to exclude neoplastic causes. Electronically signed by: Mohinder Samaniego MD (01/26/2018 3:18 AM) [facility] Laboratory Tests Test 01/27/18 11:31 01/27/18 16:36 01/27/18 20:48 01/27/18 21:45 Glucose (Fingerstick) 78 mg/dL (70-99) 71 mg/dL (70-99) 60 mg/dL (70-99) 69 mg/dL (70-99) Test 01/28/18 04:25 01/28/18 07:29 White Blood Count 3.8 x10^3/uL (4.0-11.0) Red Blood Count 4.38 x10^6/uL (4.30-5.70) Hemoglobin 13.2 g/dL (13.0-17.5) Hematocrit 38.7 % (39.0-53.0) Mean Corpuscular Volume 88 fL (79-100) Mean Corpuscular Hemoglobin 30 pg (25-35) Mean Corpuscular Hemoglobin Concent 34 g/dL (31-37) Red Cell Distribution Width 14.0 % (11.5-14.5) Platelet Count 173 x10^3/uL (140-400) Neutrophils (%) (Auto) 62 % (31-73) Lymphocytes (%) (Auto) 24 % (24-48) Monocytes (%) (Auto) 9 % (0-9) Eosinophils (%) (Auto) 5 % (0-3) Basophils (%) (Auto) 1 % (0-3) Neutrophils # (Auto) 2.3 x10^3uL (1.8-7.7) Lymphocytes # (Auto) 0.9 x10^3/uL (1.0-4.8) Monocytes # (Auto) 0.3 x10^3/uL (0.0-1.1) Eosinophils # (Auto) 0.2 x10^3/uL (0.0-0.7) Basophils # (Auto) 0.0 x10^3/uL (0.0-0.2) Sodium Level 141 mmol/L (136-145) Potassium Level 4.8 mmol/L (3.5-5.1) Chloride Level 104 mmol/L (98-107) Carbon Dioxide Level 31 mmol/L (21-32) Anion Gap 6 (6-14) Blood Urea Nitrogen 9 mg/dL (8-26) Creatinine 0.9 mg/dL (0.7-1.3) Estimated GFR (Cockcroft-Gault) 87.3 Glucose Level 111 mg/dL (70-99) Calcium Level 8.7 mg/dL (8.5-10.1) Glucose (Fingerstick) 86 mg/dL (70-99) Assessment and Plan Assessmemt and Plan Problems Medical Problems: (1) Abdominal pain Status: Acute Comment Review of Relevant I have reviewed the following items otis (where applicable) has been applied. Labs Laboratory Tests Test 01/26/18 12:20 01/26/18 19:24 01/26/18 19:30 01/27/18 04:05 Troponin I Quantitative < 0.017 ng/mL (0.000-0.055) < 0.017 ng/mL (0.000-0.055) Glucose (Fingerstick) 107 mg/dL (70-99) Lactic Acid Level 0.5 mmol/L (0.4-2.0) White Blood Count 5.1 x10^3/uL (4.0-11.0) Red Blood Count 4.31 x10^6/uL (4.30-5.70) Hemoglobin 13.5 g/dL (13.0-17.5) Hematocrit 38.2 % (39.0-53.0) Mean Corpuscular Volume 89 fL (79-100) Mean Corpuscular Hemoglobin 31 pg (25-35) Mean Corpuscular Hemoglobin Concent 35 g/dL (31-37) Red Cell Distribution Width 13.9 % (11.5-14.5) Platelet Count 167 x10^3/uL (140-400) Neutrophils (%) (Auto) 66 % (31-73) Lymphocytes (%) (Auto) 22 % (24-48) Monocytes (%) (Auto) 8 % (0-9) Eosinophils (%) (Auto) 3 % (0-3) Basophils (%) (Auto) 1 % (0-3) Neutrophils # (Auto) 3.4 x10^3uL (1.8-7.7) Lymphocytes # (Auto) 1.1 x10^3/uL (1.0-4.8) Monocytes # (Auto) 0.4 x10^3/uL (0.0-1.1) Eosinophils # (Auto) 0.2 x10^3/uL (0.0-0.7) Basophils # (Auto) 0.0 x10^3/uL (0.0-0.2) Sodium Level 142 mmol/L (136-145) Potassium Level 4.2 mmol/L (3.5-5.1) Chloride Level 107 mmol/L (98-107) Carbon Dioxide Level 25 mmol/L (21-32) Anion Gap 10 (6-14) Blood Urea Nitrogen 10 mg/dL (8-26) Creatinine 0.8 mg/dL (0.7-1.3) Estimated GFR (Cockcroft-Gault) 100.0 Glucose Level 77 mg/dL (70-99) Calcium Level 8.5 mg/dL (8.5-10.1) Triglycerides Level 116 mg/dL (0-150) Cholesterol Level 70 mg/dL (0-200) LDL Cholesterol, Calculated 21 mg/dL (0-100) VLDL Cholesterol, Calculated 23 mg/dL (0-40) Non-HDL Cholesterol Calculated 44 mg/dL (0-129) HDL Cholesterol 26 mg/dL (40-60) Cholesterol/HDL Ratio 2.7 Lipase 77 U/L (73-393) Test 01/27/18 07:29 01/27/18 11:31 01/27/18 16:36 01/27/18 20:48 Glucose (Fingerstick) 84 mg/dL (70-99) 78 mg/dL (70-99) 71 mg/dL (70-99) 60 mg/dL (70-99) Test 01/27/18 21:45 01/28/18 04:25 01/28/18 07:29 Glucose (Fingerstick) 69 mg/dL (70-99) 86 mg/dL (70-99) White Blood Count 3.8 x10^3/uL (4.0-11.0) Red Blood Count 4.38 x10^6/uL (4.30-5.70) Hemoglobin 13.2 g/dL (13.0-17.5) Hematocrit 38.7 % (39.0-53.0) Mean Corpuscular Volume 88 fL (79-100) Mean Corpuscular Hemoglobin 30 pg (25-35) Mean Corpuscular Hemoglobin Concent 34 g/dL (31-37) Red Cell Distribution Width 14.0 % (11.5-14.5) Platelet Count 173 x10^3/uL (140-400) Neutrophils (%) (Auto) 62 % (31-73) Lymphocytes (%) (Auto) 24 % (24-48) Monocytes (%) (Auto) 9 % (0-9) Eosinophils (%) (Auto) 5 % (0-3) Basophils (%) (Auto) 1 % (0-3) Neutrophils # (Auto) 2.3 x10^3uL (1.8-7.7) Lymphocytes # (Auto) 0.9 x10^3/uL (1.0-4.8) Monocytes # (Auto) 0.3 x10^3/uL (0.0-1.1) Eosinophils # (Auto) 0.2 x10^3/uL (0.0-0.7) Basophils # (Auto) 0.0 x10^3/uL (0.0-0.2) Sodium Level 141 mmol/L (136-145) Potassium Level 4.8 mmol/L (3.5-5.1) Chloride Level 104 mmol/L (98-107) Carbon Dioxide Level 31 mmol/L (21-32) Anion Gap 6 (6-14) Blood Urea Nitrogen 9 mg/dL (8-26) Creatinine 0.9 mg/dL (0.7-1.3) Estimated GFR (Cockcroft-Gault) 87.3 Glucose Level 111 mg/dL (70-99) Calcium Level 8.7 mg/dL (8.5-10.1) Laboratory Tests Test 01/27/18 11:31 01/27/18 16:36 01/27/18 20:48 01/27/18 21:45 Glucose (Fingerstick) 78 mg/dL (70-99) 71 mg/dL (70-99) 60 mg/dL (70-99) 69 mg/dL (70-99) Test 01/28/18 04:25 01/28/18 07:29 White Blood Count 3.8 x10^3/uL (4.0-11.0) Red Blood Count 4.38 x10^6/uL (4.30-5.70) Hemoglobin 13.2 g/dL (13.0-17.5) Hematocrit 38.7 % (39.0-53.0) Mean Corpuscular Volume 88 fL (79-100) Mean Corpuscular Hemoglobin 30 pg (25-35) Mean Corpuscular Hemoglobin Concent 34 g/dL (31-37) Red Cell Distribution Width 14.0 % (11.5-14.5) Platelet Count 173 x10^3/uL (140-400) Neutrophils (%) (Auto) 62 % (31-73) Lymphocytes (%) (Auto) 24 % (24-48) Monocytes (%) (Auto) 9 % (0-9) Eosinophils (%) (Auto) 5 % (0-3) Basophils (%) (Auto) 1 % (0-3) Neutrophils # (Auto) 2.3 x10^3uL (1.8-7.7) Lymphocytes # (Auto) 0.9 x10^3/uL (1.0-4.8) Monocytes # (Auto) 0.3 x10^3/uL (0.0-1.1) Eosinophils # (Auto) 0.2 x10^3/uL (0.0-0.7) Basophils # (Auto) 0.0 x10^3/uL (0.0-0.2) Sodium Level 141 mmol/L (136-145) Potassium Level 4.8 mmol/L (3.5-5.1) Chloride Level 104 mmol/L (98-107) Carbon Dioxide Level 31 mmol/L (21-32) Anion Gap 6 (6-14) Blood Urea Nitrogen 9 mg/dL (8-26) Creatinine 0.9 mg/dL (0.7-1.3) Estimated GFR (Cockcroft-Gault) 87.3 Glucose Level 111 mg/dL (70-99) Calcium Level 8.7 mg/dL (8.5-10.1) Glucose (Fingerstick) 86 mg/dL (70-99) Microbiology 01/26/18 Blood Culture - Preliminary, Resulted NO GROWTH AFTER 2 DAYS Medications Current Medications Morphine Sulfate (Morphine Sulfate) 4 mg 1X ONCE IV ; Start 01/26/18 at 02:00; Stop 01/26/18 at 02:28; Status DC Iohexol (Omnipaque 300 Mg/ml) 75 ml 1X ONCE IV Last administered on 01/26/18at 02:31; Start 01/26/18 at 02:15; Stop 01/26/18 at 02:16; Status DC Info (CONTRAST GIVEN -- Rx MONITORING) 1 each PRN DAILY PRN MC SEE COMMENTS; Start 01/26/18 at 02:15; Stop 01/28/18 at 02:14; Status DC Sodium Chloride 1,000 ml @ 1,000 mls/hr 1X ONCE IV Last administered on at 02:12; Start 01/26/18 at 02:15; Stop 01/26/18 at 03:14; Status DC Ondansetron HCl (Zofran) 4 mg PRN Q8HRS PRN IV NAUSEA/VOMITING; Start 01/26/18 at 02:30; Stop 01/27/18 at 02:29; Status DC Fentanyl Citrate (Fentanyl 2ml Vial) 50 mcg PRN Q1HR PRN IV PAIN Last administered on 01/26/18at 19:40; Start 01/26/18 at 02:30; Stop 01/27/18 at 02:29 ; Status DC Sodium Chloride 500 ml @ 500 mls/hr 1X ONCE IV Last administered on at 04:05; Start 01/26/18 at 04:15; Stop 01/26/18 at 05:14; Status DC Vancomycin HCl (Vanco Per Pharmacy) 1 each PRN DAILY PRN MC SEE COMMENTS Last administered on 01/26/18at 09:24; Start 01/26/18 at 04:15; Stop 01/27/18 at 12:32 ; Status DC Levofloxacin/ Dextrose 150 ml @ 100 mls/hr 1X ONCE IV Last administered on at 04:47; Start 01/26/18 at 04:15; Stop 01/26/18 at 05:44; Status DC Norepinephrine Bitartrate 250 ml @ 1.875 mls/ hr CONT PRN IV SEE I/O RECORD; Start 01/26/18 at 04:30; Stop 01/26/18 at 17:29; Status DC Sodium Chloride 500 ml @ 500 mls/hr 1X ONCE IV Last administered on at 04:10; Start 01/26/18 at 05:00; Stop 01/26/18 at 05:59; Status DC Sodium Chloride 1,000 ml @ 75 mls/hr [id number] IV Last administered on at 00:20; Start 01/26/18 at 05:00 Vancomycin HCl 1.75 gm/Sodium Chloride 500 ml @ 250 mls/hr 1X ONCE IV Last administered on 01/26/18at 05:48; Start 01/26/18 at 05:00; Stop 01/26/18 at 06:59 ; Status DC Metronidazole 100 ml @ 100 mls/hr 1X ONCE IV Last administered on 01/26/18at 05:47; Start 01/26/18 at 05:30; Stop 01/26/18 at 06:29; Status DC Vancomycin HCl 1 gm/Sodium Chloride 250 ml @ 250 mls/hr Q12H IV Last administered on 01/27/18at 05:44; Start 01/26/18 at 18:00; Stop 01/27/18 at 12:32 ; Status DC Vancomycin HCl (Vancomycin Trough Level) 1 each 1X ONCE MC ; Start 01/27/18 at 17:30; Stop 01/27/18 at 17:31; Status Cancel Pantoprazole Sodium (PROTONIX VIAL for IV PUSH) 40 mg DAILYAC IVP Last administered on 01/28/18at 06:08; Start 01/26/18 at 10:00; Stop 01/28/18 at 11:14 ; Status DC Metoprolol Tartrate (Lopressor Vial) 5 mg Q6HRS IVP Last administered on at 18:31; Start 01/26/18 at 18:00; Stop 01/27/18 at 19:47; Status DC Sodium Chloride 1,000 ml @ 75 mls/hr [id number] IV ; Start 01/26/18 at 19:30; Status Cancel Lorazepam (Ativan) 0.5 mg 1X ONCE IV Last administered on 01/27/18at 00:04; Start 01/26/18 at 22:15; Stop 01/26/18 at 22:16; Status DC Morphine Sulfate (Morphine Sulfate) 4 mg PRN Q4HRS PRN IV PAIN Last administered on 01/27/18 11:35; Start 01/26/18 at 22:00; Stop 01/27/18 at 15:00 ; Status DC Ondansetron HCl (Zofran) 4 mg PRN Q8HRS PRN IV NAUSEA/VOMITING Last administered on 01/27/18 19:50; Start 01/27/18 at 09:45 Morphine Sulfate (Morphine Sulfate) 6 mg PRN Q4HRS PRN IV PAIN Last administered on 01/28/18 04:28; Start 01/27/18 at 15:15 Metoclopramide HCl (Reglan Vial) 10 mg PRN Q6HRS PRN IV NAUSEA/VOMITING Last administered on 01/28/18 01:17; Start 01/27/18 at 15:00 Alprazolam (Xanax) 1 mg TID PO Last administered on 01/28/18 08:52; Start 01/27/18 at 21:00 Amiodarone HCl (Cordarone) 200 mg DAILY PO Last administered on 01/28/18 08:52 ; Start 01/28/18 at 09:00 Amitriptyline HCl (Elavil) 20 mg QHS PO Last administered on 01/27/18 20:22; Start 01/27/18 at 21:00 Gabapentin (Neurontin) 300 mg TID PO Last administered on 01/28/18 08:52; Start 01/27/18 at 21:00 Acetaminophen/ Hydrocodone Bitart (Lortab 5/325) 1 tab PRN Q6HRS PRN PO PAIN Last administered on 01/28/18 08:53; Start 01/27/18 at 19:45 Levetiracetam (Keppra) 500 mg BID PO Last administered on 01/28/18 08:52; Start 01/27/18 at 21:00 Lisinopril (Prinivil) 10 mg DAILY PO Last administered on 01/28/18 08:53; Start 01/28/18 at 09:00 Metoprolol Succinate (Toprol Xl) 100 mg QHS PO Last administered on 01/27/18 20:45; Start 01/27/18 at 21:00 Atorvastatin Calcium (Lipitor) 80 mg QHS PO Last administered on 01/27/18at 20: 23; Start 01/27/18 at 21:00 Potassium Chloride (Klor-Con) 20 meq [id number] PO Last administered on at 08:52; Start 01/28/18 at 08:00 Spironolactone (Aldactone) 25 mg DAILY PO ; Start 01/28/18 at 09:00 Tizanidine HCl (Zanaflex) 2 mg TID PO Last administered on 01/28/18at 08:52; Start 01/27/18 at 21:00 Dextrose (Dextrose 50%-Water Syringe) 12.5 gm PRN Q15MIN PRN IV SEE COMMENTS; Start 01/28/18 at 06:00 Pantoprazole Sodium (Protonix) 40 mg DAILYAC PO ; Start 01/29/18 at 07:30 Polyethylene Glycol (miraLAX PACKET) 17 gm DAILY PO ; Start 01/28/18 at 11:00 Active Scripts Active Reported Janumet 50-1,000 Mg Tablet (Sitagliptin Phos/Metformin Hcl) 1 Each Tablet 1 Tab PO BID Ondansetron Odt (Ondansetron) 4 Mg Tab.rapdis 1 Tab PO BID Xanax (Alprazolam) 1 Mg Tablet 1 Tab PO TID Hydrocodone-Apap 5-325 (Hydrocodone Bit/Acetaminophen) 1 Each Tablet 1 Tab PO PRN Q6HRS PRN Lisinopril 10 Mg Tablet 1 Tab PO DAILY Amitriptyline Hcl 10 Mg Tablet 2 Tab PO QHS Reglan (Metoclopramide Hcl) 10 Mg Tablet 1 Tab PO TID Protonix (Pantoprazole Sodium) 40 Mg Granpkt.dr 40 Mg PO BID Potassium Chloride 20 Meq Tablet.er 20 Meq PO DAILY Levetiracetam 500 Mg Tablet 1 Tab PO BID Gabapentin (Gabapentin) 300 Mg Capsule 300 Mg PO TID Atorvastatin Calcium 80 Mg Tablet 1 Tab PO DAILY Mag-Oxide (Magnesium Oxide) 400 Mg Tablet 1 Tab PO BID Metoprolol Succinate ( Xl ) (Metoprolol Succinate) 100 Mg Tab.er.24h 1 Tab PO DAILY Spironolactone 25 Mg Tablet 1 Tab PO DAILY Tizanidine Hcl 4 Mg Tablet 0.5 Tab PO TID Amiodarone Hcl 200 Mg Tablet 1 Tab PO DAILY Vitals/I & O Vital Sign - Last 24 Hours 01/27/18 01/27/18 01/27/18 01/27/18 11:35 11:35 12:06 15:00 Temp 97.7 97.7 Pulse 80 90 Resp 16 B/P (MAP) 130/53 187/102 (130) Pulse Ox 98 O2 Delivery Room Air Room Air Room Air 01/27/18 01/27/18 01/27/18 01/27/18 16:05 18:31 19:00 20:00 Temp 98.7 98.7 Pulse 89 86 Resp 18 B/P (MAP) 145/92 163/98 (119) Pulse Ox 97 O2 Delivery Room Air Room Air Room Air 01/27/18 01/27/18 01/27/18 01/28/18 20:17 20:45 22:44 00:17 Temp 98.5 98.5 Pulse 86 59 Resp 20 17 20 B/P (MAP) 163/98 142/84 (103) Pulse Ox 97 100 100 O2 Delivery Room Air Room Air Room Air 01/28/18 01/28/18 01/28/18 01/28/18 01:14 02:14 03:00 04:28 Temp 98.3 98.3 Pulse 74 Resp 20 18 18 18 B/P (MAP) 129/83 (98) Pulse Ox 100 100 95 95 O2 Delivery Room Air Room Air Room Air 01/28/18 01/28/18 01/28/18 01/28/18 04:58 07:00 08:00 08:52 Temp 97.5 97.5 Pulse 71 71 Resp 18 16 B/P (MAP) 129/83 (98) 129/83 Pulse Ox 95 98 O2 Delivery Room Air Room Air Room Air 01/28/18 01/28/18 01/28/18 08:53 08:53 09:55 Pulse 71 B/P (MAP) 129/83 O2 Delivery Room Air Room Air Intake and Output 01/27/18 01/27/18 01/28/18 15:00 23:00 07:00 Intake Total 0 ml 800 ml Output Total 250 ml 1000 ml Balance -250 ml -200 ml SARAH RUDD MD Jan 28, 2018 11:28
[2018-01-28] MEDS: POLYETHYLENE GLYCOL 3350 17 GM PACKET. PO SCH (12:26)
[2018-01-28 15:00] VITALS: BP 121/73
[2018-01-28] MEDS ORDERED: DICYCLOMINE HCL 10 MG CAPSULE PO PRN (15:30)
[2018-01-28 19:00] VITALS: BP 120/76
[2018-01-28] MEDS: INSULIN LISPRO 300 UNITS/3 ML INSULN.PEN. SQ SCH (20:30)
[2018-01-28] MEDS: ATORVASTATIN CALCIUM 40 MG TABLET. PO SCH (21:10)
[2018-01-28] MEDS: metFORMIN 500 MG TABLET PO SCH (21:11)
[2018-01-28] MEDS: METOPROLOL SUCC 24HR ER 100 MG TAB.ER.24H. PO SCH (21:11)
[2018-01-28] MEDS: AMITRIPTYLINE HCL 10 MG TABLET. PO SCH (21:12)
[2018-01-28] MEDS ORDERED: INSULIN LISPRO 300 UNITS/3 ML INSULN.PEN. SQ ONE (21:30)
[2018-01-28 23:00] VITALS: BP 108/72
[2018-01-29] MEDS: HYDROcodone/APAP 5/325MG 1 TAB TABLET PO PRN ×2 (00:13→13:19)
[2018-01-29] MEDS: ONDANSETRON PF 4 MG/2 ML VIAL. IV PRN ×2 (00:13→12:03)
[2018-01-29] MEDS: MORPHINE SULFATE 10 MG/ML VIAL. IV PRN ×3 (01:04→09:50)
[2018-01-29 03:00] VITALS: BP 104/64
[2018-01-29 07:00] VITALS: BP 128/85
[2018-01-29] MEDS ORDERED: PANTOPRAZOLE 40 MG TABLET.DR. PO SCH (07:30)
[2018-01-29] MEDS: metFORMIN 500 MG TABLET PO SCH (07:57)
[2018-01-29] MEDS: POTASSIUM CHLORIDE 20 MEQ TABLET.ER. PO SCH (07:58)
[2018-01-29] MEDS: INSULIN LISPRO 300 UNITS/3 ML INSULN.PEN. SQ SCH ×2 (07:58→12:00)
[2018-01-29] MEDS: levETIRAcetam 500 MG TABLET PO SCH (08:51)
[2018-01-29] MEDS: GABAPENTIN 300 MG CAPSULE. PO SCH ×2 (08:52→14:05)
[2018-01-29] MEDS: SPIRONOLACTONE 25 MG TABLET PO SCH (08:52)
[2018-01-29] MEDS: tiZANidine 4 MG TABLET. PO SCH ×2 (08:52→14:06)
[2018-01-29] MEDS: ALPRAZolam 1 MG TABLET PO SCH ×2 (08:52→14:05)
[2018-01-29] MEDS: LISINOPRIL 10 MG TABLET PO SCH (08:52)
[2018-01-29] MEDS: POLYETHYLENE GLYCOL 3350 17 GM PACKET. PO SCH (08:53)
[2018-01-29] MEDS: AMIODARONE HCL 200 MG TABLET. PO SCH (08:53)
[2018-01-29] MEDS: IV NORMAL SALINE 1000ML BAG 1,000 ML IV SCH (08:54)
[2018-01-29] MEDS ORDERED: LINAGLIPTIN 5 MG TABLET PO SCH (09:00)
--- NOTE | 2018-01-29 09:14 | PDOC ---
PROGRESS NOTES History of Present Illness History of Present Illness ASSESSMENT AND PLAN: doubt appendicitis. abdominal pain, uncontrolled hypokalemia concern for drug seeking behavior plan replace k IV antibiotics, IV fluids, d/c p.r.n. narcotics, inc p.r.n. Zofran. Gastroenterology, following General Surgery following consult Cardiology. MOM 30 C PO NOW HOME TODAY Home meds. Frequent labs. Dilated appendix - low probability of appendicitis, high risk for surgery/ extensive cardiac history D/C PLANNING 34 MIN Vitals Vitals Vital Signs Date Time Temp Pulse Resp B/P (MAP) Pulse Ox O2 Delivery O2 Flow Rate FiO2 01/29/18 08:53 66 128/85 01/29/18 07:00 97.4 16 98 Room Air 97.4 Physical Exam General: Alert, Oriented X3, Cooperative, No acute distress, mild distress Heart: Regular rate, Normal S1, Normal S2, No murmurs Lungs: Clear Abdomen: Normal bowel sounds, Soft, Other (mild TTP RUQ, Right flank) Extremities: No clubbing, No cyanosis Skin: No significant lesion Labs LABS Laboratory Tests Test 01/28/18 11:22 01/28/18 16:44 01/28/18 20:00 01/29/18 07:43 Glucose (Fingerstick) 80 mg/dL (70-99) 187 mg/dL (70-99) 245 mg/dL (70-99) 113 mg/dL (70-99) Assessment and Plan Assessmemt and Plan Problems Medical Problems: (1) Abdominal pain Status: Acute Comment Review of Relevant I have reviewed the following items otis (where applicable) has been applied. Labs Laboratory Tests Test 01/27/18 11:31 01/27/18 16:36 01/27/18 20:48 01/27/18 21:45 Glucose (Fingerstick) 78 mg/dL (70-99) 71 mg/dL (70-99) 60 mg/dL (70-99) 69 mg/dL (70-99) Test 01/28/18 04:25 01/28/18 07:29 01/28/18 11:22 01/28/18 16:44 White Blood Count 3.8 x10^3/uL (4.0-11.0) Red Blood Count 4.38 x10^6/uL (4.30-5.70) Hemoglobin 13.2 g/dL (13.0-17.5) Hematocrit 38.7 % (39.0-53.0) Mean Corpuscular Volume 88 fL (79-100) Mean Corpuscular Hemoglobin 30 pg (25-35) Mean Corpuscular Hemoglobin Concent 34 g/dL (31-37) Red Cell Distribution Width 14.0 % (11.5-14.5) Platelet Count 173 x10^3/uL (140-400) Neutrophils (%) (Auto) 62 % (31-73) Lymphocytes (%) (Auto) 24 % (24-48) Monocytes (%) (Auto) 9 % (0-9) Eosinophils (%) (Auto) 5 % (0-3) Basophils (%) (Auto) 1 % (0-3) Neutrophils # (Auto) 2.3 x10^3uL (1.8-7.7) Lymphocytes # (Auto) 0.9 x10^3/uL (1.0-4.8) Monocytes # (Auto) 0.3 x10^3/uL (0.0-1.1) Eosinophils # (Auto) 0.2 x10^3/uL (0.0-0.7) Basophils # (Auto) 0.0 x10^3/uL (0.0-0.2) Sodium Level 141 mmol/L (136-145) Potassium Level 4.8 mmol/L (3.5-5.1) Chloride Level 104 mmol/L (98-107) Carbon Dioxide Level 31 mmol/L (21-32) Anion Gap 6 (6-14) Blood Urea Nitrogen 9 mg/dL (8-26) Creatinine 0.9 mg/dL (0.7-1.3) Estimated GFR (Cockcroft-Gault) 87.3 Glucose Level 111 mg/dL (70-99) Calcium Level 8.7 mg/dL (8.5-10.1) Glucose (Fingerstick) 86 mg/dL (70-99) 80 mg/dL (70-99) 187 mg/dL (70-99) Test 01/28/18 20:00 01/29/18 07:43 Glucose (Fingerstick) 245 mg/dL (70-99) 113 mg/dL (70-99) Laboratory Tests Test 01/28/18 11:22 01/28/18 16:44 01/28/18 20:00 01/29/18 07:43 Glucose (Fingerstick) 80 mg/dL (70-99) 187 mg/dL (70-99) 245 mg/dL (70-99) 113 mg/dL (70-99) Microbiology 01/26/18 Blood Culture - Preliminary, Resulted NO GROWTH AFTER 3 DAYS Medications Current Medications Morphine Sulfate (Morphine Sulfate) 4 mg 1X ONCE IV ; Start 01/26/18 at 02:00; Stop 01/26/18 at 02:28; Status DC Iohexol (Omnipaque 300 Mg/ml) 75 ml 1X ONCE IV Last administered on 01/26/18at 02:31; Start 01/26/18 at 02:15; Stop 01/26/18 at 02:16; Status DC Info (CONTRAST GIVEN -- Rx MONITORING) 1 each PRN DAILY PRN MC SEE COMMENTS; Start 01/26/18 at 02:15; Stop 01/28/18 at 02:14; Status DC Sodium Chloride 1,000 ml @ 1,000 mls/hr 1X ONCE IV Last administered on at 02:12; Start 01/26/18 at 02:15; Stop 01/26/18 at 03:14; Status DC Ondansetron HCl (Zofran) 4 mg PRN Q8HRS PRN IV NAUSEA/VOMITING; Start 01/26/18 at 02:30; Stop 01/27/18 at 02:29; Status DC Fentanyl Citrate (Fentanyl 2ml Vial) 50 mcg PRN Q1HR PRN IV PAIN Last administered on 01/26/18at 19:40; Start 01/26/18 at 02:30; Stop 01/27/18 at 02:29 ; Status DC Sodium Chloride 500 ml @ 500 mls/hr 1X ONCE IV Last administered on at 04:05; Start 01/26/18 at 04:15; Stop 01/26/18 at 05:14; Status DC Vancomycin HCl (Vanco Per Pharmacy) 1 each PRN DAILY PRN MC SEE COMMENTS Last administered on 01/26/18at 09:24; Start 01/26/18 at 04:15; Stop 01/27/18 at 12:32 ; Status DC Levofloxacin/ Dextrose 150 ml @ 100 mls/hr 1X ONCE IV Last administered on at 04:47; Start 01/26/18 at 04:15; Stop 01/26/18 at 05:44; Status DC Norepinephrine Bitartrate 250 ml @ 1.875 mls/ hr CONT PRN IV SEE I/O RECORD; Start 01/26/18 at 04:30; Stop 01/26/18 at 17:29; Status DC Sodium Chloride 500 ml @ 500 mls/hr 1X ONCE IV Last administered on at 04:10; Start 01/26/18 at 05:00; Stop 01/26/18 at 05:59; Status DC Sodium Chloride 1,000 ml @ 75 mls/hr [id number] IV Last administered on at 08:54; Start 01/26/18 at 05:00 Vancomycin HCl 1.75 gm/Sodium Chloride 500 ml @ 250 mls/hr 1X ONCE IV Last administered on 01/26/18at 05:48; Start 01/26/18 at 05:00; Stop 01/26/18 at 06:59 ; Status DC Metronidazole 100 ml @ 100 mls/hr 1X ONCE IV Last administered on 01/26/18at 05:47; Start 01/26/18 at 05:30; Stop 01/26/18 at 06:29; Status DC Vancomycin HCl 1 gm/Sodium Chloride 250 ml @ 250 mls/hr Q12H IV Last administered on 01/27/18at 05:44; Start 01/26/18 at 18:00; Stop 01/27/18 at 12:32 ; Status DC Vancomycin HCl (Vancomycin Trough Level) 1 each 1X ONCE MC ; Start 01/27/18 at 17:30; Stop 01/27/18 at 17:31; Status Cancel Pantoprazole Sodium (PROTONIX VIAL for IV PUSH) 40 mg DAILYAC IVP Last administered on 01/28/18at 06:08; Start 01/26/18 at 10:00; Stop 01/28/18 at 11:14 ; Status DC Metoprolol Tartrate (Lopressor Vial) 5 mg Q6HRS IVP Last administered on at 18:31; Start 01/26/18 at 18:00; Stop 01/27/18 at 19:47; Status DC Sodium Chloride 1,000 ml @ 75 mls/hr [id number] IV ; Start 01/26/18 at 19:30; Status Cancel Lorazepam (Ativan) 0.5 mg 1X ONCE IV Last administered on 01/27/18at 00:04; Start 01/26/18 at 22:15; Stop 01/26/18 at 22:16; Status DC Morphine Sulfate (Morphine Sulfate) 4 mg PRN Q4HRS PRN IV PAIN Last administered on 01/27/18at 11:35; Start 01/26/18 at 22:00; Stop 01/27/18 at 15:00 ; Status DC Ondansetron HCl (Zofran) 4 mg PRN Q8HRS PRN IV NAUSEA/VOMITING 1ST CHOIC Last administered on 01/29/18at 00:13; Start 01/27/18 at 09:45 Morphine Sulfate (Morphine Sulfate) 6 mg PRN Q4HRS PRN IV PAIN Last administered on 01/28/18at 12:27; Start 01/27/18 at 15:15; Stop 01/28/18 at 14:12 ; Status DC Metoclopramide HCl (Reglan Vial) 10 mg PRN Q6HRS PRN IV NAUSEA/VOMITING 2ND CHOICE Last administered on 01/28/18 19:37; Start 01/27/18 at 15:00 Alprazolam (Xanax) 1 mg TID PO Last administered on 01/29/18at 08:52; Start 01/27/18 at 21:00 Amiodarone HCl (Cordarone) 200 mg DAILY PO Last administered on 01/29/18 08:53 ; Start 01/28/18 at 09:00 Amitriptyline HCl (Elavil) 20 mg QHS PO Last administered on 01/28/18at 21:12; Start 01/27/18 at 21:00 Gabapentin (Neurontin) 300 mg TID PO Last administered on 01/29/18 08:52; Start 01/27/18 at 21:00 Acetaminophen/ Hydrocodone Bitart (Lortab 5/325) 1 tab PRN Q6HRS PRN PO PAIN Last administered on 01/29/18 00:13; Start 01/27/18 at 19:45 Levetiracetam (Keppra) 500 mg BID PO Last administered on 01/29/18 08:51; Start 01/27/18 at 21:00 Lisinopril (Prinivil) 10 mg DAILY PO Last administered on 01/29/18 08:52; Start 01/28/18 at 09:00 Metoprolol Succinate (Toprol Xl) 100 mg QHS PO Last administered on 01/28/18 21:11; Start 01/27/18 at 21:00 Atorvastatin Calcium (Lipitor) 80 mg QHS PO Last administered on 01/28/18 21: 10; Start 01/27/18 at 21:00 Potassium Chloride (Klor-Con) 20 meq [id number] PO Last administered on 07:58; Start 01/28/18 at 08:00 Spironolactone (Aldactone) 25 mg DAILY PO Last administered on 01/29/18 08:52 ; Start 01/28/18 at 09:00 Tizanidine HCl (Zanaflex) 2 mg TID PO Last administered on 01/29/18 08:52; Start 01/27/18 at 21:00 Dextrose (Dextrose 50%-Water Syringe) 12.5 gm PRN Q15MIN PRN IV SEE COMMENTS; Start 01/28/18 at 06:00 Pantoprazole Sodium (Protonix) 40 mg DAILYAC PO Last administered on 01/29/18 07:15; Start 01/29/18 at 07:30 Polyethylene Glycol (miraLAX PACKET) 17 gm DAILY PO Last administered on 08:53; Start 01/28/18 at 11:00 Morphine Sulfate (Morphine Sulfate) 6 mg PRN Q3HRS PRN IV PAIN Last administered on 01/29/18 05:06; Start 01/28/18 at 14:15 Dicyclomine HCl (Bentyl) 10 mg PRN QID PRN PO abd pain Last administered on 19:33; Start 01/28/18 at 15:30 Metformin HCl (Glucophage) 1,000 mg BIDWMEALS PO Last administered on 07:57; Start 01/28/18 at 20:30 Linagliptin (Tradjenta) 5 mg DAILY PO Last administered on 01/29/18 08:51; Start 01/29/18 at 09:00 Insulin Human Lispro (HumaLOG) 0-5 UNITS TIDWMEALS SQ ; Start 01/28/18 at 20:30 Insulin Human Lispro (HumaLOG) 2 units 1X ONCE SQ Last administered on at 21:20; Start 01/28/18 at 21:30; Stop 01/28/18 at 21:31; Status DC Active Scripts Active Reported Janumet 50-1,000 Mg Tablet (Sitagliptin Phos/Metformin Hcl) 1 Each Tablet 1 Tab PO BID Ondansetron Odt (Ondansetron) 4 Mg Tab.rapdis 1 Tab PO BID Xanax (Alprazolam) 1 Mg Tablet 1 Tab PO TID Hydrocodone-Apap 5-325 (Hydrocodone Bit/Acetaminophen) 1 Each Tablet 1 Tab PO PRN Q6HRS PRN Lisinopril 10 Mg Tablet 1 Tab PO DAILY Amitriptyline Hcl 10 Mg Tablet 2 Tab PO QHS Reglan (Metoclopramide Hcl) 10 Mg Tablet 1 Tab PO TID Protonix (Pantoprazole Sodium) 40 Mg Granpkt.dr 40 Mg PO BID Potassium Chloride 20 Meq Tablet.er 20 Meq PO DAILY Levetiracetam 500 Mg Tablet 1 Tab PO BID Gabapentin (Gabapentin) 300 Mg Capsule 300 Mg PO TID Atorvastatin Calcium 80 Mg Tablet 1 Tab PO DAILY Mag-Oxide (Magnesium Oxide) 400 Mg Tablet 1 Tab PO BID Metoprolol Succinate ( Xl ) (Metoprolol Succinate) 100 Mg Tab.er.24h 1 Tab PO DAILY Spironolactone 25 Mg Tablet 1 Tab PO DAILY Tizanidine Hcl 4 Mg Tablet 0.5 Tab PO TID Amiodarone Hcl 200 Mg Tablet 1 Tab PO DAILY Vitals/I & O Vital Sign - Last 24 Hours 01/28/18 01/28/18 01/28/18 01/28/18 11:00 12:27 13:07 15:00 Temp 97.7 97.3 97.7 97.3 Pulse 69 68 Resp 18 16 B/P (MAP) 119/78 (92) 121/73 (89) Pulse Ox 97 98 O2 Delivery Room Air Room Air Room Air Room Air 01/28/18 01/28/18 01/28/18 01/28/18 17:26 19:00 20:00 21:09 Temp 97.5 97.5 Pulse 73 Resp 16 20 B/P (MAP) 120/76 (91) Pulse Ox 98 97 O2 Delivery Room Air Room Air Room Air Room Air 01/28/18 01/28/18 01/29/18 01/29/18 21:11 23:00 00:13 01:04 Temp 98.0 98.0 Pulse 73 68 Resp 16 20 20 B/P (MAP) 120/76 108/72 (84) Pulse Ox 97 97 97 O2 Delivery Room Air Room Air Room Air 01/29/18 01/29/18 01/29/18 01/29/18 01:13 03:00 05:06 05:36 Temp 97.7 97.7 Pulse 64 Resp 18 16 18 18 B/P (MAP) 104/64 (77) Pulse Ox 97 98 98 98 O2 Delivery Room Air Room Air Room Air Room Air 01/29/18 01/29/18 01/29/18 07:00 08:52 08:53 Temp 97.4 97.4 Pulse 66 66 66 Resp 16 B/P (MAP) 128/85 (99) 128/85 128/85 Pulse Ox 98 O2 Delivery Room Air Intake and Output 01/28/18 01/28/18 01/29/18 15:00 23:00 07:00 Intake Total 390 ml Output Total 610 ml Balance 390 ml -610 ml SARAH RUDD MD Jan 29, 2018 09:14
--- NOTE | 2018-01-29 09:29 | PDOC ---
Subjective: Subjective: Tolerating PO w/o n/v. Abd pain is "worse" - RLQ to periumbilical. Hasn't stooled - typical bowel pattern is "back up" for a couple days, then loose stools for a couple days, then no stools for a couple days. Uses marijuana to stimulate appetite at home. Objective: Vital Signs: Vital Signs Date Time Temp Pulse Resp B/P (MAP) Pulse Ox O2 Delivery O2 Flow Rate FiO2 01/29/18 08:53 66 128/85 01/29/18 07:00 97.4 16 98 Room Air 97.4 Labs: Laboratory Tests Test 01/28/18 11:22 01/28/18 16:44 01/28/18 20:00 01/29/18 07:43 Glucose (Fingerstick) 80 mg/dL 187 mg/dL 245 mg/dL 113 mg/dL PE: GEN: NAD - looks better today, sitting up in bed, has pants on LUNGS: CTAB HEART: RRR ABD: NABS, S/ND, RLQ discomfort NEURO/PSYCH: A & O 3 A/P: Chronic abd pain -- Seems improved, wonder about drug-seeking. Chronic marijuana use. 'Scoped earlier this year per GI consult note. S/p cholecystectomy. Could consider GES but this can be done as an outpt. Continue PPI, will change to PO Reglan, more aggressive bowel regimen, increase dicyclomine dose. ZINA PEARL Jan 29, 2018 09:28
[2018-01-29] MEDS ORDERED: BISACODYL 5 MG TABLET.DR. PO ONE (09:30)
[2018-01-29] MEDS ORDERED: DICYCLOMINE HCL 10 MG CAPSULE PO PRN (09:30)
[2018-01-29] MEDS ORDERED: LUBIPROSTONE 8 MCG CAPSULE PO SCH (09:30)
[2018-01-29] MEDS ORDERED: METOCLOPRAMIDE ORAL SOLN 10 MG/10 ML SOLUTION. PO PRN (09:30)
[2018-01-29] MEDS ORDERED: POLYETHYLENE GLYCOL 3350 17 GM PACKET. PO SCH (10:00)
--- NOTE | 2018-01-29 10:31 | PDOC ---
JOSE BRYAN FIELD COUNSEL 01/29/18 1031: SURGICAL PROGRESS NOTE Subjective not eating much pain to periumbilical, RLQ worse with eating + nausea some flatus, no stool Vital Signs Vital Signs Date Time Temp Pulse Resp B/P (MAP) Pulse Ox O2 Delivery O2 Flow Rate FiO2 01/29/18 09:50 16 Room Air 01/29/18 08:53 66 128/85 01/29/18 07:00 97.4 98 97.4 I&O Intake and Output 01/29/18 07:00 Intake Total 390 ml Output Total 610 ml Balance -220 ml Intake Oral 390 ml Output Urine Total 610 ml # Voids 1 General: Alert, Oriented X3, Cooperative, No acute distress Abdomen: Soft, Other (TTP periumbilical, ND) Labs Laboratory Tests Test 01/27/18 11:31 01/27/18 16:36 01/27/18 20:48 01/27/18 21:45 Glucose (Fingerstick) 78 mg/dL (70-99) 71 mg/dL (70-99) 60 mg/dL (70-99) 69 mg/dL (70-99) Test 01/28/18 04:25 01/28/18 07:29 01/28/18 11:22 01/28/18 16:44 White Blood Count 3.8 x10^3/uL (4.0-11.0) Red Blood Count 4.38 x10^6/uL (4.30-5.70) Hemoglobin 13.2 g/dL (13.0-17.5) Hematocrit 38.7 % (39.0-53.0) Mean Corpuscular Volume 88 fL (79-100) Mean Corpuscular Hemoglobin 30 pg (25-35) Mean Corpuscular Hemoglobin Concent 34 g/dL (31-37) Red Cell Distribution Width 14.0 % (11.5-14.5) Platelet Count 173 x10^3/uL (140-400) Neutrophils (%) (Auto) 62 % (31-73) Lymphocytes (%) (Auto) 24 % (24-48) Monocytes (%) (Auto) 9 % (0-9) Eosinophils (%) (Auto) 5 % (0-3) Basophils (%) (Auto) 1 % (0-3) Neutrophils # (Auto) 2.3 x10^3uL (1.8-7.7) Lymphocytes # (Auto) 0.9 x10^3/uL (1.0-4.8) Monocytes # (Auto) 0.3 x10^3/uL (0.0-1.1) Eosinophils # (Auto) 0.2 x10^3/uL (0.0-0.7) Basophils # (Auto) 0.0 x10^3/uL (0.0-0.2) Sodium Level 141 mmol/L (136-145) Potassium Level 4.8 mmol/L (3.5-5.1) Chloride Level 104 mmol/L (98-107) Carbon Dioxide Level 31 mmol/L (21-32) Anion Gap 6 (6-14) Blood Urea Nitrogen 9 mg/dL (8-26) Creatinine 0.9 mg/dL (0.7-1.3) Estimated GFR (Cockcroft-Gault) 87.3 Glucose Level 111 mg/dL (70-99) Calcium Level 8.7 mg/dL (8.5-10.1) Glucose (Fingerstick) 86 mg/dL (70-99) 80 mg/dL (70-99) 187 mg/dL (70-99) Test 01/28/18 20:00 01/29/18 07:43 Glucose (Fingerstick) 245 mg/dL (70-99) 113 mg/dL (70-99) Laboratory Tests Test 01/28/18 11:22 01/28/18 16:44 01/28/18 20:00 01/29/18 07:43 Glucose (Fingerstick) 80 mg/dL (70-99) 187 mg/dL (70-99) 245 mg/dL (70-99) 113 mg/dL (70-99) Problem List Problems Medical Problems: (1) Abdominal pain Status: Acute Assessment/Plan no surgical indications ? drug seeking behavior GI following CANDIDA MONTEMAYOR MD 01/29/18 1209: SURGICAL PROGRESS NOTE Assessment/Plan pt seen as above no new surg recs IRVINJOSE L FIELD COUNSEL Jan 29, 2018 10:31 CANDIDA MONTEMAYOR MD Jan 29, 2018 12:09
[2018-01-29 11:49] VITALS: BP 135/90
--- NOTE | 2018-01-29 12:00 | PDOC3 ---
Discharge Summary Date of Admission: Jan 26, 2018 Date of Discharge: Jan 29, 2018 Follow-Up: 3-5 days Admitting Diagnosis comment: History of Present Illness History of Present Illness DISCHARGE DX doubt appendicitis. abdominal pain, OBSTIPATION hypokalemia concern for drug seeking behavior plan replace k IV antibiotics, IV fluids, d/c p.r.n. narcotics, inc p.r.n. Zofran. Gastroenterology, following General Surgery following consult Cardiology. MOM 30 CC PO NOW HOME TODAY Home meds. Frequent labs. Dilated appendix - low probability of appendicitis, high risk for surgery/ extensive cardiac history D/C PLANNING 34 MIN Vitals Vitals Vital Signs Date Time Temp Pulse Resp B/P (MAP) Pulse Ox O2 Delivery O2 Flow Rate FiO2 01/29/18 08:53 66 128/85 01/29/18 07:00 97.4 16 98 Room Air 97.4 Physical Exam General: Alert, Oriented X3, Cooperative, No acute distress, Heart: Regular rate, Normal S1, Normal S2, No murmurs Lungs: Clear Abdomen: Normal bowel sounds, Soft, Extremities: No clubbing, No cyanosis Skin: No significant lesion FINAL DIAGNOSIS Problems Medical Problems: (1) Abdominal pain Status: Acute Brief Hospital Course Mr. Cervantes is a 57 old [sex] who presented with [PANCREATITIS ] CONDITION AT DISCHARGE: Improved Discharge Medications Current Medications Morphine Sulfate (Morphine Sulfate) 4 mg 1X ONCE IV ; Start 01/26/18 at 02:00; Stop 01/26/18 at 02:28; Status DC Iohexol (Omnipaque 300 Mg/ml) 75 ml 1X ONCE IV Last administered on 01/26/18at 02:31; Start 01/26/18 at 02:15; Stop 01/26/18 at 02:16; Status DC Info (CONTRAST GIVEN -- Rx MONITORING) 1 each PRN DAILY PRN MC SEE COMMENTS; Start 01/26/18 at 02:15; Stop 01/28/18 at 02:14; Status DC Sodium Chloride 1,000 ml @ 1,000 mls/hr 1X ONCE IV Last administered on at 02:12; Start 01/26/18 at 02:15; Stop 01/26/18 at 03:14; Status DC Ondansetron HCl (Zofran) 4 mg PRN Q8HRS PRN IV NAUSEA/VOMITING; Start 01/26/18 at 02:30; Stop 01/27/18 at 02:29; Status DC Fentanyl Citrate (Fentanyl 2ml Vial) 50 mcg PRN Q1HR PRN IV PAIN Last administered on 01/26/18at 19:40; Start 01/26/18 at 02:30; Stop 01/27/18 at 02:29 ; Status DC Sodium Chloride 500 ml @ 500 mls/hr 1X ONCE IV Last administered on at 04:05; Start 01/26/18 at 04:15; Stop 01/26/18 at 05:14; Status DC Vancomycin HCl (Vanco Per Pharmacy) 1 each PRN DAILY PRN MC SEE COMMENTS Last administered on 01/26/18at 09:24; Start 01/26/18 at 04:15; Stop 01/27/18 at 12:32 ; Status DC Levofloxacin/ Dextrose 150 ml @ 100 mls/hr 1X ONCE IV Last administered on at 04:47; Start 01/26/18 at 04:15; Stop 01/26/18 at 05:44; Status DC Norepinephrine Bitartrate 250 ml @ 1.875 mls/ hr CONT PRN IV SEE I/O RECORD; Start 01/26/18 at 04:30; Stop 01/26/18 at 17:29; Status DC Sodium Chloride 500 ml @ 500 mls/hr 1X ONCE IV Last administered on at 04:10; Start 01/26/18 at 05:00; Stop 01/26/18 at 05:59; Status DC Sodium Chloride 1,000 ml @ 75 mls/hr [id number] IV Last administered on at 08:54; Start 01/26/18 at 05:00 Vancomycin HCl 1.75 gm/Sodium Chloride 500 ml @ 250 mls/hr 1X ONCE IV Last administered on 01/26/18at 05:48; Start 01/26/18 at 05:00; Stop 01/26/18 at 06:59 ; Status DC Metronidazole 100 ml @ 100 mls/hr 1X ONCE IV Last administered on 01/26/18at 05:47; Start 01/26/18 at 05:30; Stop 01/26/18 at 06:29; Status DC Vancomycin HCl 1 gm/Sodium Chloride 250 ml @ 250 mls/hr Q12H IV Last administered on 01/27/18at 05:44; Start 01/26/18 at 18:00; Stop 01/27/18 at 12:32 ; Status DC Vancomycin HCl (Vancomycin Trough Level) 1 each 1X ONCE MC ; Start 01/27/18 at 17:30; Stop 01/27/18 at 17:31; Status Cancel Pantoprazole Sodium (PROTONIX VIAL for IV PUSH) 40 mg DAILYAC IVP Last administered on 01/28/18at 06:08; Start 01/26/18 at 10:00; Stop 01/28/18 at 11:14 ; Status DC Metoprolol Tartrate (Lopressor Vial) 5 mg Q6HRS IVP Last administered on at 18:31; Start 01/26/18 at 18:00; Stop 01/27/18 at 19:47; Status DC Sodium Chloride 1,000 ml @ 75 mls/hr [id number] IV ; Start 01/26/18 at 19:30; Status Cancel Lorazepam (Ativan) 0.5 mg 1X ONCE IV Last administered on 01/27/18at 00:04; Start 01/26/18 at 22:15; Stop 01/26/18 at 22:16; Status DC Morphine Sulfate (Morphine Sulfate) 4 mg PRN Q4HRS PRN IV PAIN Last administered on 01/27/18at 11:35; Start 01/26/18 at 22:00; Stop 01/27/18 at 15:00 ; Status DC Ondansetron HCl (Zofran) 4 mg PRN Q8HRS PRN IV NAUSEA/VOMITING 1ST CHOIC Last administered on 01/29/18at 00:13; Start 01/27/18 at 09:45 Morphine Sulfate (Morphine Sulfate) 6 mg PRN Q4HRS PRN IV PAIN Last administered on 01/28/18at 12:27; Start 01/27/18 at 15:15; Stop 01/28/18 at 14:12 ; Status DC Metoclopramide HCl (Reglan Vial) 10 mg PRN Q6HRS PRN IV NAUSEA/VOMITING 2ND CHOICE Last administered on 01/28/18at 19:37; Start 01/27/18 at 15:00; Stop 01/29 at 09:28; Status DC Alprazolam (Xanax) 1 mg TID PO Last administered on 01/29/18 08:52; Start 01/27/18 at 21:00 Amiodarone HCl (Cordarone) 200 mg DAILY PO Last administered on 01/29/18 08:53 ; Start 01/28/18 at 09:00 Amitriptyline HCl (Elavil) 20 mg QHS PO Last administered on 01/28/18 21:12; Start 01/27/18 at 21:00 Gabapentin (Neurontin) 300 mg TID PO Last administered on 01/29/18 08:52; Start 01/27/18 at 21:00 Acetaminophen/ Hydrocodone Bitart (Lortab 5/325) 1 tab PRN Q6HRS PRN PO PAIN Last administered on 01/29/18 00:13; Start 01/27/18 at 19:45 Levetiracetam (Keppra) 500 mg BID PO Last administered on 01/29/18 08:51; Start 01/27/18 at 21:00 Lisinopril (Prinivil) 10 mg DAILY PO Last administered on 01/29/18 08:52; Start 01/28/18 at 09:00 Metoprolol Succinate (Toprol Xl) 100 mg QHS PO Last administered on 01/28/18 21:11; Start 01/27/18 at 21:00 Atorvastatin Calcium (Lipitor) 80 mg QHS PO Last administered on 01/28/18 21: 10; Start 01/27/18 at 21:00 Potassium Chloride (Klor-Con) 20 meq [id number] PO Last administered on 07:58; Start 01/28/18 at 08:00 Spironolactone (Aldactone) 25 mg DAILY PO Last administered on 01/29/18 08:52 ; Start 01/28/18 at 09:00 Tizanidine HCl (Zanaflex) 2 mg TID PO Last administered on 01/29/18 08:52; Start 01/27/18 at 21:00 Dextrose (Dextrose 50%-Water Syringe) 12.5 gm PRN Q15MIN PRN IV SEE COMMENTS; Start 01/28/18 at 06:00 Pantoprazole Sodium (Protonix) 40 mg DAILYAC PO Last administered on 01/29/18 07:15; Start 01/29/18 at 07:30 Polyethylene Glycol (miraLAX PACKET) 17 gm DAILY PO Last administered on at 08:53; Start 01/28/18 at 11:00; Stop 01/29/18 at 09:28; Status DC Morphine Sulfate (Morphine Sulfate) 6 mg PRN Q3HRS PRN IV PAIN Last administered on 01/29/18at 09:50; Start 01/28/18 at 14:15 Dicyclomine HCl (Bentyl) 10 mg PRN QID PRN PO abd pain Last administered on 19:33; Start 01/28/18 at 15:30; Stop 01/29/18 at 09:28; Status DC Metformin HCl (Glucophage) 1,000 mg BIDWMEALS PO Last administered on at 07:57; Start 01/28/18 at 20:30 Linagliptin (Tradjenta) 5 mg DAILY PO Last administered on 01/29/18at 08:51; Start 01/29/18 at 09:00 Insulin Human Lispro (HumaLOG) 0-5 UNITS TIDWMEALS SQ ; Start 01/28/18 at 20:30 Insulin Human Lispro (HumaLOG) 2 units 1X ONCE SQ Last administered on at 21:20; Start 01/28/18 at 21:30; Stop 01/28/18 at 21:31; Status DC Dicyclomine HCl (Bentyl) 20 mg PRN QID PRN PO abd pain; Start 01/29/18 at 09:30 Polyethylene Glycol (miraLAX PACKET) 17 gm BID PO ; Start 01/29/18 at 10:00 Metoclopramide HCl (Reglan Oral Solution) 10 mg PRN TID PRN PO n/v, decreased appetite; Start 01/29/18 at 09:30 Lubiprostone (Amitiza) 8 mcg BIDWMEALS PO Last administered on 01/29/18at 10:00 ; Start 01/29/18 at 09:30 Bisacodyl (Dulcolax Tab) 10 mg 1X ONCE PO Last administered on 01/29/18at 09:50 ; Start 01/29/18 at 09:30; Stop 01/29/18 at 09:33; Status DC Active Scripts Active Reported Janumet 50-1,000 Mg Tablet (Sitagliptin Phos/Metformin Hcl) 1 Each Tablet 1 Tab PO BID Ondansetron Odt (Ondansetron) 4 Mg Tab.rapdis 1 Tab PO BID Xanax (Alprazolam) 1 Mg Tablet 1 Tab PO TID Hydrocodone-Apap 5-325 (Hydrocodone Bit/Acetaminophen) 1 Each Tablet 1 Tab PO PRN Q6HRS PRN Lisinopril 10 Mg Tablet 1 Tab PO DAILY Amitriptyline Hcl 10 Mg Tablet 2 Tab PO QHS Reglan (Metoclopramide Hcl) 10 Mg Tablet 1 Tab PO TID Protonix (Pantoprazole Sodium) 40 Mg Granpkt.dr 40 Mg PO BID Potassium Chloride 20 Meq Tablet.er 20 Meq PO DAILY Levetiracetam 500 Mg Tablet 1 Tab PO BID Gabapentin (Gabapentin) 300 Mg Capsule 300 Mg PO TID Atorvastatin Calcium 80 Mg Tablet 1 Tab PO DAILY Mag-Oxide (Magnesium Oxide) 400 Mg Tablet 1 Tab PO BID Metoprolol Succinate ( Xl ) (Metoprolol Succinate) 100 Mg Tab.er.24h 1 Tab PO DAILY Spironolactone 25 Mg Tablet 1 Tab PO DAILY Tizanidine Hcl 4 Mg Tablet 0.5 Tab PO TID Amiodarone Hcl 200 Mg Tablet 1 Tab PO DAILY Vital Signs Vital Signs Date Time Temp Pulse Resp B/P (MAP) Pulse Ox O2 Delivery O2 Flow Rate FiO2 01/29/18 11:49 98.3 76 16 135/90 (105) 98 Room Air 98.3 Labs Laboratory Tests Test 01/27/18 16:36 01/27/18 20:48 01/27/18 21:45 01/28/18 04:25 Glucose (Fingerstick) 71 mg/dL (70-99) 60 mg/dL (70-99) 69 mg/dL (70-99) White Blood Count 3.8 x10^3/uL (4.0-11.0) Red Blood Count 4.38 x10^6/uL (4.30-5.70) Hemoglobin 13.2 g/dL (13.0-17.5) Hematocrit 38.7 % (39.0-53.0) Mean Corpuscular Volume 88 fL (79-100) Mean Corpuscular Hemoglobin 30 pg (25-35) Mean Corpuscular Hemoglobin Concent 34 g/dL (31-37) Red Cell Distribution Width 14.0 % (11.5-14.5) Platelet Count 173 x10^3/uL (140-400) Neutrophils (%) (Auto) 62 % (31-73) Lymphocytes (%) (Auto) 24 % (24-48) Monocytes (%) (Auto) 9 % (0-9) Eosinophils (%) (Auto) 5 % (0-3) Basophils (%) (Auto) 1 % (0-3) Neutrophils # (Auto) 2.3 x10^3uL (1.8-7.7) Lymphocytes # (Auto) 0.9 x10^3/uL (1.0-4.8) Monocytes # (Auto) 0.3 x10^3/uL (0.0-1.1) Eosinophils # (Auto) 0.2 x10^3/uL (0.0-0.7) Basophils # (Auto) 0.0 x10^3/uL (0.0-0.2) Sodium Level 141 mmol/L (136-145) Potassium Level 4.8 mmol/L (3.5-5.1) Chloride Level 104 mmol/L (98-107) Carbon Dioxide Level 31 mmol/L (21-32) Anion Gap 6 (6-14) Blood Urea Nitrogen 9 mg/dL (8-26) Creatinine 0.9 mg/dL (0.7-1.3) Estimated GFR (Cockcroft-Gault) 87.3 Glucose Level 111 mg/dL (70-99) Calcium Level 8.7 mg/dL (8.5-10.1) Test 01/28/18 07:29 01/28/18 11:22 01/28/18 16:44 01/28/18 20:00 Glucose (Fingerstick) 86 mg/dL (70-99) 80 mg/dL (70-99) 187 mg/dL (70-99) 245 mg/dL (70-99) Test 01/29/18 07:43 01/29/18 11:45 Glucose (Fingerstick) 113 mg/dL (70-99) 102 mg/dL (70-99) Laboratory Tests Test 01/28/18 16:44 12/5/18 20:00 01/29/18 07:43 01/29/18 11:45 Glucose (Fingerstick) 187 mg/dL (70-99) 245 mg/dL (70-99) 113 mg/dL (70-99) 102 mg/dL (70-99) Allergies Allergies Coded Allergies Type Severity Reaction Last Updated Verified Penicillins Allergy Intermediate 01/28/18 Yes onion Allergy Intermediate 01/28/18 Yes Disposition/Orders: D/C to Home Patient Instructions D/C PLANNING 33 MIN SARAH RUDD MD Jan 29, 2018 12:00
--- NOTE | 2018-01-29 12:01 | DISCH ---
DISCHARGE INSTRUCTIONS Condition on Discharge Condition on Discharge: Stable Activity After Discharge Activity Instructions for Disc: Activity as tolerated Lifting Instructions after Dis: No heavy lifting Exercise Instruction after Dis: Walk 10 min, 3 x per day Driving Instructions after Dis: Do not drive Weight Bearing Status after Di: As tolerated Diet after Discharge Diet after Discharge: Diabetic No Calorie Level Wound Incision Care Wound/Incision Care: Ice to area for comfort Contacting the DR. after DC Call your doctor for: If your condition worsens Treatment/Equipment after DC Adaptive Equipment Issued: None SARAH RUDD MD Jan 29, 2018 12:01
[2018-01-29] MEDS ORDERED: DICY10CA3 PO (12:04)
[2018-01-29] MEDS ORDERED: MAGNESIUM HYDROXIDE 2,400 MG/30 ML ORAL.SUSP. PO ONE (12:30)
== END 2018-01-29 15:20 | disposition home or self-care (01) | DRG 439 ==
LOC: ER 01:17 → UNDOADMIN 02:15 → 2 SOUTH 02:15 → 1 WEST ICU 02:15 → 4 NORTH 17:10
PROVIDERS: ADMIT Family Medicine; ATTEND Family Medicine
DX: K85.90 Acute pancreatitis without necrosis or infection, unspecified (principal); E87.2 Acidosis; I50.22 Chronic systolic (congestive) heart failure; I48.92 Unspecified atrial flutter; E11.51 Type 2 diabetes mellitus with diabetic peripheral angiopathy without gangrene; E11.42 Type 2 diabetes mellitus with diabetic polyneuropathy; I11.0 Hypertensive heart disease with heart failure; I25.10 Atherosclerotic heart disease of native coronary artery without angina pectoris; I25.2 Old myocardial infarction; E87.6 Hypokalemia; E78.5 Hyperlipidemia, unspecified; I25.5 Ischemic cardiomyopathy; F41.9 Anxiety disorder, unspecified; M19.90 Unspecified osteoarthritis, unspecified site; G89.29 Other chronic pain; F17.210 Nicotine dependence, cigarettes, uncomplicated; K59.00 Constipation, unspecified; F12.90 Cannabis use, unspecified, uncomplicated; Z95.1 Presence of aortocoronary bypass graft; Z95.5 Presence of coronary angioplasty implant and graft; Z95.810 Presence of automatic (implantable) cardiac defibrillator; Z88.0 Allergy status to penicillin; Z82.49 Family history of ischemic heart disease and other diseases of the circulatory system; Z90.49 Acquired absence of other specified parts of digestive tract; Z86.73 Personal history of transient ischemic attack (TIA), and cerebral infarction without residual deficits
CPT/HCPCS: 36415; 71045; 74177; 80048; 80061; 80076; 81001; 82962; 83605; 83690; 83880; 84484; 85025; 85610; 85730; 87040; 87641; 93005; 93306; 96374; C9113; J1815; J1956; J2060; J2270; J2405; J2765; J3010; J3370; J3490; J7030; J7040; J7050; Q9967; 99285-25

== ENCOUNTER 2018-02-08 23:32 | Emergency (ER) | payer MEDICAID ==
[~2018-02-08] VITALS: Ht 182.9 cm; Wt 75.3 kg
[~2018-02-08 23:32] MED LIST changes: +ALPR1TAB2 PO; +AMIT10TA PO; +ATORVASTATIN CA80 MG PO; +DICY10CA3 PO; +GABA300C18 PO; +HYDR-2761 PO; +LEVE500T6 PO; +LISI10TA2 PO; +MAGN400T22 PO; +METO-247 PO; +METO10TA81 PO; +ONDA4TAB12 PO; +PANT40GR PO; +POTA20TA82 PO; +SITA1TAB11 PO
[2018-02-08 23:51] LABS: BASO % 0 % (0-3); EOS # 0.2 x10^3/uL (0.0-0.7); EOS % 2 % (0-3); HEMATOCRIT 44.9 % (39.0-53.0); HEMOGLOBIN 15.4 g/dL (13.0-17.5); LYMPH # 1.2 x10^3/uL (1.0-4.8); LYMPH % 14 % (24-48); MEAN CORPUSCULAR HEMOGLOBIN 31 pg (25-35); MEAN CORPUSCULAR HGB CONC 34 g/dL (31-37); MEAN CORPUSCULAR VOLUME 89 fL (79-100); MONO # 0.5 x10^3/uL (0.0-1.1); MONO % 6 % (0-9); NEUT # 6.5 x10^3uL (1.8-7.7); NEUT % 78 % (31-73); PLATELET COUNT 158 x10^3/uL (140-400); RED BLOOD COUNT 5.05 x10^6/uL (4.30-5.70); RED CELL DISTRIBUTION WIDTH 13.8 % (11.5-14.5); WHITE BLOOD COUNT 8.4 x10^3/uL (4.0-11.0)
[2018-02-08 23:59] LABS: CALCIUM 9.3 mg/dL (8.5-10.1); GFR 77.3; POTASSIUM 4.3 mmol/L (3.5-5.1)
[2018-02-09] MEDS ORDERED: MORPHINE SULFATE 10 MG/ML VIAL. IV ONE ×2 (00:15→03:00)
--- NOTE | 2018-02-09 01:33 | RAD ---
PQRS Compliance Statement: One or more of the following individualized dose reduction techniques were utilized for this examination: 1. Automated exposure control 2. Adjustment of the mA and/or kV according to patient size 3. Use of iterative reconstruction technique CT HEAD AND CERVICAL SPINE WITHOUT CONTRAST History: FALL, HEAD INJURY Comparison: None. Procedure: Axial images are obtained of the head from the skull base through the vertex without IV contrast. Noncontrast helical CT of the cervical spine was performed. Axial, sagittal, and coronal reconstructions were obtained. Findings: The ventricles and sulci are normal for the patient's age. There is patchy old right middle cerebral artery distribution infarct. No mass-effect, midline shift, hemorrhage or obvious acute infarction is identified. Basilar cisterns are patent. Severe atherosclerotic calcification of the distal right internal carotid artery. Bone windows demonstrate no significant calvarial abnormality. Moderate mucosal thickening right maxillary sinus. There is air-fluid level. Mastoid air cells are well aerated. There is no evidence of acute fracture or acute malalignment of the cervical spine. There are no perched or jumped facets. The vertebral body height and alignment are maintained. There is degenerative endplate spurring. Anterior bony bridging is noted at several levels. There are bilateral carotid bulb calcifications. The visualized lung apices are clear. IMPRESSION: 1. No acute intracranial abnormality. 2. There is old right middle cerebral artery distribution infarct. 3. No acute fracture of the cervical spine. Electronically signed by: Oren Camara MD (02/09/2018 1:29 AM) [facility]
--- NOTE | 2018-02-09 02:37 | PHYS DOC ---
Past Medical History Past Medical History: CAD, CVA, Diabetes-Type II, Hypertension, CO, Seizure, Stroke Additional Past Medical Histor: CO X 5, STROKE X 3 Past Surgical History: Coronary Bypass Surgery, Pacemaker, Tonsillectomy, Other Additional Past Surgical Histo: Multiple Cardiac Stents, ICD Alcohol Use: None Drug Use: Marijuana Adult General Chief Complaint Chief Complaint: CHEST WALL PAIN HPI HPI Patient is a 57 year old male who presents after a fall. Patient was in his bathtub today. He states he slipped on the slick surface of the bathtub and fell. He landed across the bathtub and sustained injury to his chest and thoracic back area. Patient also states he struck his head and complains of diffuse head pain and neck pain. He did not have any loss of consciousness. He has had no nausea or vomiting or vision changes since the incident. He primarily complains of pain across the sternum and rib cage as well as a thoracic back, head, and C-spine. Denies numbness or tingling. No focal neurologic complaints. Patient does have a history significant for coronary artery disease. He did not have chest pain prior to the fall. No palpitations, lightheadedness, dyspnea. Review of Systems Review of Systems Constitutional: Denies fever Eyes: Denies change in visual acuity HENT: Denies nasal congestion Respiratory: Denies cough or shortness of breath Cardiovascular: No additional information not addressed in HPI GI: Denies abdominal pain : Denies dysuria Musculoskeletal: as documented above Integument: Denies rash Neurologic: Denies headache, focal weakness Endocrine: Denies polyuria All other systems were reviewed and found to be within normal limits, except as documented in this note. Current Medications Current Medications Current Medications Medications (Trade) Dose Ordered Sig/Doris Start Time Stop Time Status Last Admin Dose Admin Azithromycin (Zithromax) 500 mg 1X ONCE 02/09/18 04:15 02/09/18 04:16 DC 02/09/18 04:16 500 MG Morphine Sulfate (Morphine Sulfate) 6 mg 1X ONCE 02/09/18 03:00 02/09/18 03:03 DC 02/09/18 03:24 6 MG Allergies Allergies Allergies Coded Allergies Type Severity Reaction Last Updated Verified Penicillins Allergy Intermediate 01/28/18 Yes onion Allergy Intermediate 01/28/18 Yes Physical Exam Physical Exam Constitutional: Well developed, well nourished, no acute distress, non-toxic appearance HENT: Normocephalic, atraumatic, bilateral external ears normal, oropharynx moist Eyes: PERRLA, EOMI Neck: Normal range of motion, no tenderness Cardiovascular:Heart rate regular rhythm, no murmur Lungs & Thorax: Bilateral breath sounds clear to auscultation Abdomen: Bowel sounds normal, soft, no tenderness Skin: Warm, dry, no erythema Back: No tenderness, no CVA tenderness Neurologic: Alert and oriented X 3, normal motor function Psychologic: Affect normal Current Patient Data Vital Signs Vital Signs Date Time Temp Pulse Resp B/P (MAP) Pulse Ox O2 Delivery O2 Flow Rate FiO2 02/09/18 03:24 16 98 Room Air 02/08/18 23:51 98 122/77 (92) 02/08/18 23:32 98.6 98.6 Lab Values Laboratory Tests Test 02/08/18 23:40 02/09/18 03:13 White Blood Count 8.4 x10^3/uL (4.0-11.0) Red Blood Count 5.05 x10^6/uL (4.30-5.70) Hemoglobin 15.4 g/dL (13.0-17.5) Hematocrit 44.9 % (39.0-53.0) Mean Corpuscular Volume 89 fL (79-100) Mean Corpuscular Hemoglobin 31 pg (25-35) Mean Corpuscular Hemoglobin Concent 34 g/dL (31-37) Red Cell Distribution Width 13.8 % (11.5-14.5) Platelet Count 158 x10^3/uL (140-400) Neutrophils (%) (Auto) 78 % (31-73) H Lymphocytes (%) (Auto) 14 % (24-48) L Monocytes (%) (Auto) 6 % (0-9) Eosinophils (%) (Auto) 2 % (0-3) Basophils (%) (Auto) 0 % (0-3) Neutrophils # (Auto) 6.5 x10^3uL (1.8-7.7) Lymphocytes # (Auto) 1.2 x10^3/uL (1.0-4.8) Monocytes # (Auto) 0.5 x10^3/uL (0.0-1.1) Eosinophils # (Auto) 0.2 x10^3/uL (0.0-0.7) Basophils # (Auto) 0.0 x10^3/uL (0.0-0.2) Prothrombin Time 14.0 SEC (11.7-14.0) Prothrombin Time INR 1.1 (0.8-1.1) PTT 31 SEC (24-38) Sodium Level 137 mmol/L (136-145) Potassium Level 4.3 mmol/L (3.5-5.1) Chloride Level 98 mmol/L (98-107) Carbon Dioxide Level 33 mmol/L (21-32) H Anion Gap 6 (6-14) Blood Urea Nitrogen 14 mg/dL (8-26) Creatinine 1.0 mg/dL (0.7-1.3) Estimated GFR (Cockcroft-Gault) 77.3 Glucose Level 350 mg/dL (70-99) H Calcium Level 9.3 mg/dL (8.5-10.1) Troponin I Quantitative < 0.017 ng/mL (0.000-0.055) < 0.017 ng/mL (0.000-0.055) PQ-Tit-C-Type Natriuretic Peptide 1096 pg/mL (0-124) H Laboratory Tests 02/08/18 23:40 Laboratory Tests 02/08/18 23:40 EKG EKG No STEMI Interpretation Time: 23:35 Radiology/Procedures Radiology/Procedures CT head/c-spine: no acute findings. CT Chest IMPRESSION: 1. Bilateral dependent atelectasis. Mild consolidation in the posterior right upper lobe may be atelectasis or early pneumonia. 2. Mild upper lobe centrilobular emphysema. 3. Subacute to chronic minimal compression fracture at the superior endplate of T4. Course & Med Decision Making Course & Med Decision Making Pertinent Labs and Imaging studies reviewed. (See chart for details) Patient was evaluated in the ER immediately on arrival to his room. Patient complained of pain described above after sustaining a fall. EKG was nonacute. Because of his cardiac history, the patient was kept in the emergency department and 3 hour troponin was completed. Troponins were not elevated. Due to the nature of his injury and his complaints, CT scan of the head, chest, C- spine were completed. There were overall no acute findings suspicious of trauma but the patient was incidentally noted to have findings possibly of pneumonia on his CT scan of the chest. When questioned, the patient does endorse some worsening cough symptoms but no fever or chills. In the ER he was given several doses of medication for pain. He was treated with the first dose of azithromycin. He was discharged to home. He was provided a prescription to complete the azithromycin and also for some pain medications to use at home. He was advised to follow-up with his primary care doctor or return to the ER for any new or worsening symptoms. Dragon Disclaimer Dragon Disclaimer This electronic medical record was generated, in whole or in part, using a voice recognition dictation system. Departure Departure Disposition: HOME, SELF-CARE Condition: GOOD Referrals: NO PCP (PCP) Scripts Hydrocodone/Apap 5-325 (NORCO 5-325 TABLET) 1 Each Tablet 1-2 EACH PO PRN Q6HRS PRN for SEVERE PAIN, #15 as needed for pain Prov: SAI MACKAY DO 02/09/18 Azithromycin (AZITHROMYCIN TABLET) 250 Mg Tablet 250 MG PO DAILY for ANTI-BIOTIC for 4 Days, #4 TAB 0 Refills Prov: SAI MACKAY DO 02/09/18 SAI MACKAY DO Feb 09, 2018 02:37
--- NOTE | 2018-02-09 02:38 | RAD ---
PQRS Compliance Statement: One or more of the following individualized dose reduction techniques were utilized for this examination: 1. Automated exposure control 2. Adjustment of the mA and/or kV according to patient size 3. Use of iterative reconstruction technique CT CHEST WO CONTRAST Clinical Indication: FALL, THORACIC BACK PAIN, RIB PAIN Comparison: None. TECHNIQUE: Helical CT imaging of the chest is performed without IV contrast. Findings: In the setting of trauma, sensitivity is decreased without IV contrast. Thyroid is symmetric. There is left chest biventricular pacer. Median sternotomy wires. There is mitral valve prosthesis. Changes of CABG. Coronary artery disease. Thyroid is symmetric. Subcentimeter mediastinal lymph nodes. Limited evaluation of the braydon without IV contrast. Great vessels normal caliber. Cardiac size normal, no pericardial effusion. No pleural effusion. The central airways are patent. Mild upper lobe centrilobular emphysema. Mild dependent opacities in the lungs may be atelectasis or early pneumonia. Cholecystectomy. There is subacute to chronic minimal compression fracture at the superior endplate of T4. No acute rib fracture. IMPRESSION: 1. Bilateral dependent atelectasis. Mild consolidation in the posterior right upper lobe may be atelectasis or early pneumonia. 2. Mild upper lobe centrilobular emphysema. 3. Subacute to chronic minimal compression fracture at the superior endplate of T4. Electronically signed by: Oren Camara MD (02/09/2018 2:34 AM) [facility]
[2018-02-09] MEDS ORDERED: AZIT250T6 PO (04:06)
[2018-02-09] MEDS ORDERED: HYDR-3164 PO (04:06)
[2018-02-09] MEDS ORDERED: AZITHROMYCIN 250 MG TABLET. PO ONE (04:15)
[2018-02-09 04:17] VITALS: BP 124/83
--- NOTE | 2018-02-09 08:47 | RAD ---
EXAM: AP View of the chest DATE: 02/08/2018 11:41 PM INDICATION: Chest pain. COMPARISON: 01/26/2018, 12/02/2017 FINDINGS: The heart is not enlarged. Cardiac generator pack obscures a portion left chest with leads in stable position. Changes of cardiac valve replacement are seen. Mediastinal and hilar contours are stable. Minimal patchy opacities in the peripheral left lung base likely atelectasis. No lobar consolidation. No pleural effusion or pneumothorax. IMPRESSION: 1. No radiographic evidence for acute cardiopulmonary process. Electronically signed by: Og Franco MD (02/09/2018 8:44 AM) [facility]
--- NOTE | 2018-02-11 08:14 | EKG ---
[facility] [address] [place] [address] Test Date: 2018-02-08 Test Time: 23:30:55 Pat Name: MIKE MITTAL Department: Room: Gender: M [place]rier: : 1960 Requested By: SAI MACKAY Order Number: [id number] Reading MD: Keith Gonzalez Measurements Intervals [place] Rate: 105 P: 56 CO: 162 QRS: 44 QRSD: 90 T: 90 QT: 334 QTc: 445 Interpretive Statements SINUS TACHYCARDIA NONSPECIFIC ST-T WAVE CHANGES POSSIBLE OLD ANTERIOR SEPTAL INFARCT Electronically Signed On 02-11-2018 8:44:56 [employer] by Keith Gonzalez
[2018-02-11] MEDS ORDERED: ALPR1TAB2 PO (18:08)
== END 2018-02-09 04:23 | disposition home or self-care (01) ==
LOC: ER 23:32
DX: S22.040A Wedge compression fracture of fourth thoracic vertebra, initial encounter for closed fracture (principal); I25.10 Atherosclerotic heart disease of native coronary artery without angina pectoris; E11.9 Type 2 diabetes mellitus without complications; I10 Essential (primary) hypertension; I25.2 Old myocardial infarction; Z95.0 Presence of cardiac pacemaker; Z88.0 Allergy status to penicillin; Z91.018 Allergy to other foods; W18.2XXA Fall in (into) shower or empty bathtub, initial encounter; Y93.89 Activity, other specified; Y92.89 Other specified places as the place of occurrence of the external cause; Y99.8 Other external cause status
CPT/HCPCS: 36415; 70450; 71045; 71250; 72125; 80048; 83880; 84484; 85025; 85610; 85730; 96374; 96376; 99284; J2270; Q0144; 93005

== ENCOUNTER 2018-03-12 01:53 | Emergency (ER) | payer MEDICAID ==
[~2018-03-12] VITALS: Ht 182.9 cm; Wt 71.2 kg
[2018-03-12 01:53] VITALS: BP 136/82
[~2018-03-12 01:53] MED LIST changes: +ALPR1TAB6 PO; +AZIT250T6 PO; +DOCU-109 PO; +DOXY100T PO; +HYDR-3164 PO; +OXYC1TAB15 PO; +POLY17PO28 PO; +PRED20TA PO
[2018-03-12] MEDS: IBUPROFEN 600 MG TABLET. PO ONE (02:18)
[2018-03-12] MEDS: ACETAMINOPHEN 500 MG TABLET PO ONE (02:18)
[2018-03-12] MEDS ORDERED: CYCL10TA2 PO (02:29)
--- NOTE | 2018-03-12 05:18 | PHYS DOC ---
Past Medical History Past Medical History: CAD, CVA, Diabetes-Type II, Hypertension, NC, Seizure, Stroke Additional Past Medical Histor: NC X 5, STROKE X 3 Past Surgical History: Coronary Bypass Surgery, Pacemaker, Tonsillectomy, Other Additional Past Surgical Histo: Multiple Cardiac Stents, ICD Alcohol Use: None Drug Use: Marijuana Adult General Chief Complaint Chief Complaint: MECHANICAL FALL HPI HPI Patient is a 57 year old male presents with fall from standing. Patient states he lost balance landing on his buttocks with pain in his low back which is nonradiating. Patient arrives by EMS. Patient does report hitting his head but denies headache, neck pain, nausea or vomiting. No medications or therapies taken prior to the arrival. Patient is well-known to this emergency department and arrives by EMS. [] Review of Systems Review of Systems History of symptoms status. . All other review symptoms are negative. All other systems were reviewed and found to be within normal limits, except as documented in this note. Current Medications Current Medications Current Medications Medications (Trade) Dose Ordered Sig/Doris Start Time Stop Time Status Last Admin Dose Admin Acetaminophen (Tylenol) 1,000 mg 1X ONCE 03/12/18 02:30 03/12/18 02:31 DC 03/12/18 02:18 1,000 MG Ibuprofen (Motrin) 600 mg 1X ONCE 03/12/18 02:30 03/12/18 02:31 DC 03/12/18 02:18 600 MG Allergies Allergies Allergies Coded Allergies Type Severity Reaction Last Updated Verified Penicillins Allergy Intermediate 01/28/18 Yes onion Allergy Intermediate 01/28/18 Yes Physical Exam Physical Exam Constitutional: Well developed, well nourished, no acute distress, non-toxic appearance. [] HENT: Normocephalic, atraumatic, bilateral external ears normal, oropharynx moist, no oral exudates, nose normal. [] Eyes: PERRLA, EOMI, conjunctiva normal, no discharge. [] Neck: Normal range of motion, no tenderness, supple, no stridor. [] Cardiovascular:Heart rate regular rhythm, no murmur [] Lungs & Thorax: Bilateral breath sounds clear to auscultation [] Abdomen: Bowel sounds normal, soft, no tenderness. [] Skin: Warm, dry, no erythema, no rash. [] Back: No midline swelling, step-off, or bruising. [] Extremities: No tenderness. [] Neurologic: Alert and oriented X 3, normal motor function, normal sensory function, no focal deficits noted. [] Psychologic: Affect normal, judgement normal, mood normal. [] Current Patient Data Vital Signs Vital Signs Date Time Temp Pulse Resp B/P (MAP) Pulse Ox O2 Delivery O2 Flow Rate FiO2 03/12/18 01:53 96.7 83 18 136/82 (100) 100 Room Air 96.7 EKG EKG [] Radiology/Procedures Radiology/Procedures [X-ray lumbar series: Questionable L# anterior compression fracture versus artifact on preliminary evaluation on preliminary ED view. ] Course & Med Decision Making Course & Med Decision Making Pertinent Labs and Imaging studies reviewed. (See chart for details) [Ibuprofen and Tylenol given. Patient does not appear to be in significant pain he walks a steady gait and crosses his legs. Recommend supportive care with PCP follow-up.] Dragon Disclaimer Dragon Disclaimer This electronic medical record was generated, in whole or in part, using a voice recognition dictation system. Departure Departure Impression: Primary Impression: Sprain of lumbar region Disposition: 01 HOME, SELF-CARE Condition: GOOD Patient Instructions: Lumbosacral Strain Additional Instructions: You were evaluated in the ED for back pain resulting from a fall. Imaging studies were performed and do not show an obvious displaced fracture. Please avoid heavy lifting and strenous physical activity. Continue muscle relaxants and take ibuprofen as needed for additional relief. Return to the ED if new or worsening symptoms. Follow up with your PCP for official radiology read. Scripts Cyclobenzaprine Hcl (CYCLOBENZAPRINE HCL) 10 Mg Tablet 10 MG PO TID, #30 TAB Prov: MARY MAGUIRE DO 03/12/18 MARY MAGUIRE DO Mar 12, 2018 05:18
--- NOTE | 2018-03-12 08:17 | RAD ---
Lumbar spine, 3 views, 03/12/2018: HISTORY: Back pain after a fall There are several shallow scattered Schmorl's nodes. There is mild marginal spurring at multiple levels. No acute fracture or subluxation is evident. There are moderate degenerative changes involving the facet joints in the lower lumbar spine. Aortoiliac calcific plaquing is present. IMPRESSION: 1. Mild to moderate scattered degenerative changes. 2. No acute bony abnormality is detected. Electronically signed by: Mg Ya MD (03/12/2018 8:13 AM) [facility]
== END 2018-03-12 02:45 | disposition home or self-care (01) ==
LOC: ER 01:53
DX: S33.5XXA Sprain of ligaments of lumbar spine, initial encounter (principal); W18.39XA Other fall on same level, initial encounter; Y93.89 Activity, other specified; Y92.89 Other specified places as the place of occurrence of the external cause; Y99.8 Other external cause status; E11.9 Type 2 diabetes mellitus without complications; I25.10 Atherosclerotic heart disease of native coronary artery without angina pectoris; I10 Essential (primary) hypertension; I25.2 Old myocardial infarction; Z95.0 Presence of cardiac pacemaker; Z90.89 Acquired absence of other organs; Z88.0 Allergy status to penicillin; Z91.018 Allergy to other foods
CPT/HCPCS: 72100; 99284

== ENCOUNTER 2018-03-13 19:43 | Emergency (ER) | payer MEDICAID ==
[~2018-03-13] VITALS: Ht 182.9 cm; Wt 68.0 kg
[~2018-03-13 19:43] MED LIST changes: +CYCL10TA2 PO
[2018-03-13 20:49] VITALS: BP 159/99
[2018-03-13 20:55] LABS: BASO % 1 % (0-3); EOS % 1 % (0-3); HEMATOCRIT 43.8 % (39.0-53.0); HEMOGLOBIN 15.1 g/dL (13.0-17.5); LYMPH # 1.1 x10^3/uL (1.0-4.8); LYMPH % 17 % (24-48); MEAN CORPUSCULAR HEMOGLOBIN 31 pg (25-35); MEAN CORPUSCULAR HGB CONC 35 g/dL (31-37); MEAN CORPUSCULAR VOLUME 90 fL (79-100); MONO # 0.5 x10^3/uL (0.0-1.1); MONO % 8 % (0-9); NEUT # 5.1 x10^3uL (1.8-7.7); NEUT % 74 % (31-73); PLATELET COUNT 181 x10^3/uL (140-400); RED BLOOD COUNT 4.85 x10^6/uL (4.30-5.70); RED CELL DISTRIBUTION WIDTH 15.1 % (11.5-14.5); WHITE BLOOD COUNT 6.9 x10^3/uL (4.0-11.0)
[2018-03-13 21:18] LABS: CALCIUM 9.4 mg/dL (8.5-10.1); CREATININE 1.1 mg/dL (0.7-1.3); GFR 69.2; POTASSIUM 5.3 mmol/L (3.5-5.1)
[2018-03-13 21:22] LABS: ALBUMIN 3.7 g/dL (3.4-5.0); ALBUMIN/GLOBULIN RATIO 1.1 (1.0-1.7); TOTAL BILIRUBIN 0.7 mg/dL (0.2-1.0); TOTAL PROTEIN 7.1 g/dL (6.4-8.2)
[2018-03-13 21:34] LABS: BILIRUBIN,URINE NEGATIVE (NEG); CLARITY,URINE CLEAR; COLOR,URINE YELLOW; NITRITE,URINE NEGATIVE (NEG); PROTEIN,URINE 30 mg/dL (NEG-TRACE)
[2018-03-13 21:41] LABS: BACTERIA,URINE 0 /HPF (0-FEW); RBC,URINE 0 /HPF (0-2); WBC,URINE 0 /HPF (0-4)
--- NOTE | 2018-03-13 21:47 | PHYS DOC ---
Past Medical History Past Medical History: CAD, CVA, Diabetes-Type II, Hypertension, MD, Pneumonia, Seizure, Stroke Additional Past Medical Histor: MD X 5, STROKE X 3 Past Surgical History: Appendectomy, Cholecystectomy, Coronary Bypass Surgery, Pacemaker, Tonsillectomy, Other Additional Past Surgical Histo: Multiple Cardiac Stents, ICD Additional Information: 0.25 PPD Alcohol Use: None Drug Use: Marijuana Adult General Chief Complaint Chief Complaint: ABDOMINAL PAIN HPI HPI Patient is a 57 year old male who presents with complaints of pain around his incision site from an appendectomy. The patient was worried that it might be infected. He also states that he fell hurting his left shoulder. He has frequent drug-seeking behavior at this facility. He denied loss of consciousness or other injury. His appendectomy was in mid January. The patient was seen 2 days ago in this emergency department for pain complaints. He became verbally abusive to the staff when he was given ibuprofen as his pain prescription. Review of Systems Review of Systems Constitutional: Denies fever or chills [] Eyes: Denies change in visual acuity, redness, or eye pain [] HENT: Denies nasal congestion or sore throat [] Respiratory: Denies cough or shortness of breath [] Cardiovascular: No additional information not addressed in HPI [] GI: See history of present illness : Denies dysuria or hematuria [] Musculoskeletal: See history of present illness Integument: Denies rash or skin lesions [] Neurologic: Denies headache, focal weakness or sensory changes [] Endocrine: Denies polyuria or polydipsia [] All other systems were reviewed and found to be within normal limits, except as documented in this note. Current Medications Current Medications Current Medications Medications (Trade) Dose Ordered Sig/Doris Start Time Stop Time Status Last Admin Dose Admin Ibuprofen (Motrin) 800 mg 1X ONCE 03/13/18 22:00 03/13/18 22:01 Allergies Allergies Allergies Coded Allergies Type Severity Reaction Last Updated Verified Penicillins Allergy Intermediate 01/28/18 Yes onion Allergy Intermediate 01/28/18 Yes Physical Exam Physical Exam Constitutional: Well developed, well nourished, no acute distress, non-toxic appearance. [] Cardiovascular:Heart rate regular rhythm, no murmur [] Lungs & Thorax: Bilateral breath sounds clear to auscultation [] Abdomen: There are well-healed incisions from his appendectomy with no erythema or edema noted, no signs of infection or peritoneal signs noted Skin: Warm, dry, no erythema, no rash. [] Back: No tenderness, no CVA tenderness. [] Extremities: tenderness to left shoulder with no gross deformity noted, no erythema or ecchymosis, pulses and sensation are intact distally, no cyanosis, no clubbing, ROM intact, no edema. [] Neurologic: Alert and oriented X 3, normal motor function, normal sensory function, no focal deficits noted. [] Psychologic: Affect normal, judgement normal, mood normal. [] Current Patient Data Vital Signs Vital Signs Date Time Temp Pulse Resp B/P (MAP) Pulse Ox O2 Delivery O2 Flow Rate FiO2 03/13/18 19:43 98.3 90 20 151/95 (113) 98 Room Air 98.3 Lab Values Laboratory Tests Test 03/13/18 20:40 03/13/18 21:20 White Blood Count 6.9 x10^3/uL (4.0-11.0) Red Blood Count 4.85 x10^6/uL (4.30-5.70) Hemoglobin 15.1 g/dL (13.0-17.5) Hematocrit 43.8 % (39.0-53.0) Mean Corpuscular Volume 90 fL (79-100) Mean Corpuscular Hemoglobin 31 pg (25-35) Mean Corpuscular Hemoglobin Concent 35 g/dL (31-37) Red Cell Distribution Width 15.1 % (11.5-14.5) H Platelet Count 181 x10^3/uL (140-400) Neutrophils (%) (Auto) 74 % (31-73) H Lymphocytes (%) (Auto) 17 % (24-48) L Monocytes (%) (Auto) 8 % (0-9) Eosinophils (%) (Auto) 1 % (0-3) Basophils (%) (Auto) 1 % (0-3) Neutrophils # (Auto) 5.1 x10^3uL (1.8-7.7) Lymphocytes # (Auto) 1.1 x10^3/uL (1.0-4.8) Monocytes # (Auto) 0.5 x10^3/uL (0.0-1.1) Eosinophils # (Auto) 0.0 x10^3/uL (0.0-0.7) Basophils # (Auto) 0.0 x10^3/uL (0.0-0.2) Sodium Level 140 mmol/L (136-145) Potassium Level 5.3 mmol/L (3.5-5.1) H Chloride Level 101 mmol/L (98-107) Carbon Dioxide Level 30 mmol/L (21-32) Anion Gap 9 (6-14) Blood Urea Nitrogen 23 mg/dL (8-26) Creatinine 1.1 mg/dL (0.7-1.3) Estimated GFR (Cockcroft-Gault) 69.2 BUN/Creatinine Ratio 21 (6-20) H Glucose Level 145 mg/dL (70-99) H Calcium Level 9.4 mg/dL (8.5-10.1) Total Bilirubin 0.7 mg/dL (0.2-1.0) Aspartate Amino Transferase (AST) 17 U/L (15-37) Alanine Aminotransferase (ALT) 17 U/L (16-63) Alkaline Phosphatase 105 U/L (46-116) Troponin I Quantitative < 0.017 ng/mL (0.000-0.055) Total Protein 7.1 g/dL (6.4-8.2) Albumin 3.7 g/dL (3.4-5.0) Albumin/Globulin Ratio 1.1 (1.0-1.7) Urine Collection Type Unknown Urine Color Yellow Urine Clarity Clear Urine pH 7.0 Urine Specific [place] 1.020 Urine Protein 30 mg/dL (NEG-TRACE) Urine Glucose (UA) 500 mg/dL (NEG) Urine Ketones (Stick) Negative mg/dL (NEG) Urine Blood Negative (NEG) Urine Nitrite Negative (NEG) Urine Bilirubin Negative (NEG) Urine Urobilinogen Dipstick 1.0 mg/dL (0.2 mg/dL) Urine Leukocyte Esterase Negative (NEG) Urine RBC 0 /HPF (0-2) Urine WBC 0 /HPF (0-4) Urine Bacteria 0 /HPF (0-FEW) Laboratory Tests 03/13/18 20:40 Laboratory Tests 03/13/18 20:40 EKG EKG [] Radiology/Procedures Radiology/Procedures [] Course & Med Decision Making Course & Med Decision Making Pertinent Labs and Imaging studies reviewed. (See chart for details) []The patient is being discharged home. He was given ibuprofen in the emergency department for pain. Dragon Disclaimer Dragon Disclaimer This electronic medical record was generated, in whole or in part, using a voice recognition dictation system. Departure Departure Impression: Primary Impression: Left shoulder pain Additional Impressions: Fall Abdominal pain Disposition: HOME, SELF-CARE Condition: STABLE Referrals: CALDERON DILL MD (PCP) Patient Instructions: Shoulder Pain, [id number] Additional Instructions: Follow-up with your primary care provider for recheck in 3 days if not improving or return to the emergency department if worsening. You may take ibuprofen or Tylenol for pain. Problem Qualifiers KRYSTIN YEUNG APRN Mar 13, 2018 21:47
--- NOTE | 2018-03-13 21:51 | RAD ---
PORTABLE CHEST 1V History: Mechanical fall today. Comparison: February 27, 2018 Cardiomediastinal silhouette: Stable Lungs: No focal airspace consolidation. Pleura: No evidence of pleural effusion. Pneumothorax: None visualized Support Devices: Pacemaker again seen. Bones: No obvious displaced fracture. There is mild widening of the right second and third intercostal space, uncertain significance but doubtful posttraumatic. Impression: No evidence of infiltrate. Electronically signed by: Kang Haile MD (03/13/2018 9:46 PM) [id number]
--- NOTE | 2018-03-13 21:52 | RAD ---
SHOULDER 2+V LEFT History: Mechanical fall today. Comparison: None are available Both AP images are internally rotated, presumably due to limited patient mobility, limiting evaluation of the humeral head and neck for fracture. No definite acute fracture is seen. Mild degenerative changes at the acromioclavicular joint. No dislocation. IMPRESSION: No evidence of acute fracture or dislocation. Electronically signed by: Kang Haile MD (03/13/2018 9:48 PM) [id number]
[2018-03-13] MEDS: IBUPROFEN 400 MG TABLET. PO ONE (22:00)
--- NOTE | 2018-03-14 15:01 | EKG ---
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
== END 2018-03-13 21:52 | disposition home or self-care (01) ==
LOC: ER 19:43
DX: G89.18 Other acute postprocedural pain (principal); R10.9 Unspecified abdominal pain; M25.512 Pain in left shoulder; Z76.5 Malingerer [conscious simulation]; F17.200 Nicotine dependence, unspecified, uncomplicated; I25.10 Atherosclerotic heart disease of native coronary artery without angina pectoris; E11.9 Type 2 diabetes mellitus without complications; I10 Essential (primary) hypertension; I25.2 Old myocardial infarction; Z86.73 Personal history of transient ischemic attack (TIA), and cerebral infarction without residual deficits; Z90.49 Acquired absence of other specified parts of digestive tract; Z90.89 Acquired absence of other organs; Z95.0 Presence of cardiac pacemaker; Z88.0 Allergy status to penicillin; Z91.018 Allergy to other foods; W19.XXXA Unspecified fall, initial encounter; Y93.89 Activity, other specified; Y92.89 Other specified places as the place of occurrence of the external cause; Y99.8 Other external cause status
CPT/HCPCS: 36415; 71045; 73030; 80053; 81001; 84484; 85025; 93005; 99284-25

== ENCOUNTER 2018-04-16 11:54 | Inpatient (IN) | payer MEDICAID ==
[~2018-04-16] VITALS: Ht 182.9 cm; Wt 72.7 kg
[~2018-04-16 11:54] MED LIST changes: +INSU100I13 SQ; +SUCR1TAB35 PO
[2018-04-16] MEDS ORDERED: IV NORMAL SALINE 1000ML BAG 1,000 ML IV SCH (12:17)
[2018-04-16] MEDS ORDERED: ASPIRIN CHEWABLE 81 MG TABLET. PO ONE (12:30)
[2018-04-16 12:55] LABS: BASO % 0 % (0-3); EOS # 0.1 x10^3/uL (0.0-0.7); EOS % 1 % (0-3); HEMATOCRIT 39.3 % (39.0-53.0); HEMOGLOBIN 12.9 g/dL (13.0-17.5); LYMPH # 0.7 x10^3/uL (1.0-4.8); LYMPH % 13 % (24-48); MEAN CORPUSCULAR HEMOGLOBIN 30 pg (25-35); MEAN CORPUSCULAR HGB CONC 33 g/dL (31-37); MEAN CORPUSCULAR VOLUME 93 fL (79-100); MONO # 0.4 x10^3/uL (0.0-1.1); MONO % 7 % (0-9); NEUT # 4.3 x10^3uL (1.8-7.7); NEUT % 79 % (31-73); PLATELET COUNT 209 x10^3/uL (140-400); RED BLOOD COUNT 4.24 x10^6/uL (4.30-5.70); RED CELL DISTRIBUTION WIDTH 15.6 % (11.5-14.5); WHITE BLOOD COUNT 5.5 x10^3/uL (4.0-11.0)
--- NOTE | 2018-04-16 13:11 | RAD ---
Indication:CHEST PAIN TECHNIQUE:Portable AP chest X-ray COMPARISON:03/19/2018 FINDINGS: Patient is rotated to the right side. Median sternotomy. Stable position of dual-lead cardiac pacer with its leads projecting over the heart. Prosthetic cardiac valve. Mild prominence of bilateral interstitium without consolidation. No pneumothorax or pleural effusion. Visualized bony thorax within normal limits. IMPRESSION: Mild prominence of bilateral interstitium may be secondary to atypical/viral infection. Electronically signed by: Memo Aguirre DO (04/16/2018 1:08 PM) [id number]
--- NOTE | 2018-04-16 13:18 | PHYS DOC ---
Past Medical History Past Medical History: CAD, CVA, Diabetes-Type II, Hypertension, NV, Pneumonia, Seizure, Stroke, Other Additional Past Medical Histor: NV X 5, STROKE X 3 Past Surgical History: Appendectomy, Cholecystectomy, Coronary Bypass Surgery, Pacemaker, Tonsillectomy, Other Additional Past Surgical Histo: Multiple Cardiac Stents, ICD, CABGX4 Additional Information: 0.5 PPD Alcohol Use: None Drug Use: Marijuana Adult General Chief Complaint Chief Complaint: CHEST PAIN HPI HPI Patient is a 57-year-old male who presents with complaint of left-sided chest pain that began last night at about 10:30 PM. Patient states that pain varies from sharp and stabbing to a deep ache. He states that last night the pain was fairly severe and states that today the pain is not quite as severe. He states that the pain is worsened with exertion and movements. He states he became concerned because he felt a ropy band and his right upper arm and was concerned about blood clots. He also indicates that he had some nausea last night but none currently. Currently he rates pain at a 7 out of 10. Patient states that nothing improves his symptoms. Review of Systems Review of Systems Constitutional: Denies fever or chills [] Respiratory: Denies cough or shortness of breath [] Cardiovascular: No additional information not addressed in HPI [] GI: Denies abdominal pain, nausea, vomiting, bloody stools or diarrhea [] Integument: Denies rash or skin lesions [] Neurologic: Denies headache, focal weakness or sensory changes [] All other systems were reviewed and found to be within normal limits, except as documented in this note. Current Medications Current Medications Current Medications Medications (Trade) Dose Ordered Sig/[facility] Start Time Stop Time Status Last Admin Dose Admin Aspirin (Children'S Aspirin) 324 mg 1X ONCE 04/16/18 12:30 04/16/18 12:31 DC 04/16/18 13:40 324 MG Magnesium Sulfate/ Dextrose 100 ml @ 100 mls/hr 1X ONCE 04/16/18 14:45 04/16/18 15:44 04/16/18 14:58 100 MLS/HR Morphine Sulfate (Morphine Sulfate) 4 mg 1X ONCE 04/16/18 14:30 04/16/18 14:31 DC 04/16/18 14:58 4 MG Sodium Chloride 1,000 ml @ 1,000 mls/hr Q1H 04/16/18 12:17 04/16/18 13:16 DC 04/16/18 13:40 1,000 MLS/HR Allergies Allergies Allergies Coded Allergies Type Severity Reaction Last Updated Verified Penicillins Allergy Intermediate 01/28/18 Yes onion Allergy Intermediate 01/28/18 Yes Physical Exam Physical Exam Constitutional: Well developed, well nourished, no acute distress, non-toxic appearance. [] HENT: Normocephalic, atraumatic, bilateral external ears normal, oropharynx moist, no oral exudates, nose normal. [] Eyes: PERRLA, EOMI, conjunctiva normal, no discharge. [] Neck: Normal range of motion, no tenderness, supple, no stridor. [] Cardiovascular: Regular rate and rhythm[] Lungs & Thorax: Bilateral breath sounds clear to auscultation [] Abdomen: Bowel sounds normal, soft, no tenderness. [] Skin: Warm, dry, no erythema, no rash. [] Extremities: Right upper arm demonstrates ropy band extending from antecubital fossa up to the deltoid level. [] Neurologic: Alert and oriented X 3, no focal deficits noted. [] Current Patient Data Vital Signs Vital Signs Date Time Temp Pulse Resp B/P (MAP) Pulse Ox O2 Delivery O2 Flow Rate FiO2 04/16/18 14:58 20 98 Room Air 04/16/18 12:21 98.2 98 170/91 (117) 98.2 Lab Values Laboratory Tests Test 04/16/18 12:46 White Blood Count 5.5 x10^3/uL (4.0-11.0) Red Blood Count 4.24 x10^6/uL (4.30-5.70) L Hemoglobin 12.9 g/dL (13.0-17.5) L Hematocrit 39.3 % (39.0-53.0) Mean Corpuscular Volume 93 fL (79-100) Mean Corpuscular Hemoglobin 30 pg (25-35) Mean Corpuscular Hemoglobin Concent 33 g/dL (31-37) Red Cell Distribution Width 15.6 % (11.5-14.5) H Platelet Count 209 x10^3/uL (140-400) Neutrophils (%) (Auto) 79 % (31-73) H Lymphocytes (%) (Auto) 13 % (24-48) L Monocytes (%) (Auto) 7 % (0-9) Eosinophils (%) (Auto) 1 % (0-3) Basophils (%) (Auto) 0 % (0-3) Neutrophils # (Auto) 4.3 x10^3uL (1.8-7.7) Lymphocytes # (Auto) 0.7 x10^3/uL (1.0-4.8) L Monocytes # (Auto) 0.4 x10^3/uL (0.0-1.1) Eosinophils # (Auto) 0.1 x10^3/uL (0.0-0.7) Basophils # (Auto) 0.0 x10^3/uL (0.0-0.2) D-Dimer (Diana) 1.50 ug/mlFEU (0.00-0.50) H Sodium Level 138 mmol/L (136-145) Potassium Level 4.4 mmol/L (3.5-5.1) Chloride Level 100 mmol/L (98-107) Carbon Dioxide Level 29 mmol/L (21-32) Anion Gap 9 (6-14) Blood Urea Nitrogen 16 mg/dL (8-26) Creatinine 0.8 mg/dL (0.7-1.3) Estimated GFR (Cockcroft-Gault) 100.0 BUN/Creatinine Ratio 20 (6-20) Glucose Level 196 mg/dL (70-99) H Calcium Level 9.1 mg/dL (8.5-10.1) Magnesium Level 1.4 mg/dL (1.8-2.4) L Total Bilirubin 0.5 mg/dL (0.2-1.0) Aspartate Amino Transferase (AST) 27 U/L (15-37) Alanine Aminotransferase (ALT) 53 U/L (16-63) Alkaline Phosphatase 208 U/L (46-116) H Troponin I Quantitative < 0.017 ng/mL (0.000-0.055) YS-Mgv-B-Type Natriuretic Peptide 1982 pg/mL (0-124) H Total Protein 7.5 g/dL (6.4-8.2) Albumin 3.4 g/dL (3.4-5.0) Albumin/Globulin Ratio 0.8 (1.0-1.7) L Laboratory Tests 04/16/18 12:46 Laboratory Tests 04/16/18 12:46 EKG EKG [] Interpretation Time: EKG demonstrates normal sinus rhythm with rate of 81. Radiology/Procedures Radiology/Procedures [] Impressions: PROCEDURE: VENOUS UPPER EXTREMITY RIGHT Examination: Ultrasound right upper extremity venous duplex HISTORY: History of right arm pain COMPARISON: None available TECHNIQUE: Grayscale, color Doppler 2-D, spectral waveform analysis of the right upper extremity venous system were performed FINDINGS: The visualized internal jugular vein, subclavian vein, axillary vein, basilic vein, brachial vein, radial, lateral veins are patent. There is echogenicity identified in the cephalic vein likely superficial vein thrombosis. IMPRESSION: 1. No evidence of deep venous thrombosis right upper extremity venous system. 2. Superficial vein thrombosis identified in the cephalic vein of the right arm. Electronically signed by: Micheal Jack MD (04/16/2018 1:56 PM) [place] [id number] Course & Med Decision Making Course & Med Decision Making Pertinent Labs and Imaging studies reviewed. (See chart for details) [] Dragon Disclaimer Dragon Disclaimer This electronic medical record was generated, in whole or in part, using a voice recognition dictation system. Departure Departure Impression: Primary Impression: Chest pain Additional Impression: Fluid overload Disposition: 09 ADMITTED INPATIENT Admitting Physician: Donna Isabel Condition: IMPROVED Referrals: CALDERON DILL MD (PCP) Problem Qualifiers Primary Impression: Chest pain Chest pain type: unspecified Qualified Codes: R07.9 - Chest pain, unspecified Additional Impression: Fluid overload Hypervolemia type: unspecified Qualified Codes: E87.70 - Fluid overload, unspecified REN PURCELL Jr. DO Apr 16, 2018 13:18
[2018-04-16 13:19] LABS: CALCIUM 9.1 mg/dL (8.5-10.1); CREATININE 0.8 mg/dL (0.7-1.3); POTASSIUM 4.4 mmol/L (3.5-5.1)
[2018-04-16 13:27] LABS: ALBUMIN 3.4 g/dL (3.4-5.0); ALBUMIN/GLOBULIN RATIO 0.8 (1.0-1.7); MAGNESIUM 1.4 mg/dL (1.8-2.4); TOTAL BILIRUBIN 0.5 mg/dL (0.2-1.0); TOTAL PROTEIN 7.5 g/dL (6.4-8.2)
--- NOTE | 2018-04-16 13:59 | RAD ---
Examination: Ultrasound right upper extremity venous duplex HISTORY: History of right arm pain COMPARISON: None available TECHNIQUE: Grayscale, color Doppler 2-D, spectral waveform analysis of the right upper extremity venous system were performed FINDINGS: The visualized internal jugular vein, subclavian vein, axillary vein, basilic vein, brachial vein, radial, lateral veins are patent. There is echogenicity identified in the cephalic vein likely superficial vein thrombosis. IMPRESSION: 1. No evidence of deep venous thrombosis right upper extremity venous system. 2. Superficial vein thrombosis identified in the cephalic vein of the right arm. Electronically signed by: Micheal Jack MD (04/16/2018 1:56 PM) [place] [id number]
[2018-04-16] MEDS ORDERED: MORPHINE SULFATE 4 MG/ML VIAL. IV ONE (14:30)
[2018-04-16] MEDS ORDERED: MAGNESIUM SULFATE 1GM 100 ML IV ONE (14:45)
[2018-04-16] MEDS ORDERED: FUROSEMIDE 40 MG/4 ML VIAL. IVP ONE (15:15)
[2018-04-16] MEDS ORDERED: ONDANSETRON PF 4 MG/2 ML VIAL. IV PRN (15:30)
[2018-04-16] MEDS ORDERED: MORPHINE SULFATE 4 MG/ML VIAL. IV PRN (15:30)
[2018-04-16 16:06] LABS: BILIRUBIN,URINE NEGATIVE (NEG); CLARITY,URINE CLEAR; COLOR,URINE YELLOW; NITRITE,URINE NEGATIVE (NEG); PROTEIN,URINE NEGATIVE (NEG-TRACE)
[2018-04-16 16:11] LABS: BACTERIA,URINE 0 /HPF (0-FEW); RBC,URINE 0 /HPF (0-2); WBC,URINE 0 /HPF (0-4)
[2018-04-16 16:40] VITALS: BP 153/101
[2018-04-16] MEDS ORDERED: DICYCLOMINE HCL 10 MG CAPSULE PO PRN (17:00)
[2018-04-16] MEDS ORDERED: oxyCODONE/APAP 5/325 1 TAB TABLET PO PRN (17:00)
[2018-04-16] MEDS: INSULIN LISPRO 300 UNITS/3 ML INSULN.PEN. SQ SCH (17:00)
[2018-04-16] MEDS ORDERED: MORPHINE IR 15 MG TABLET PO PRN (17:00)
[2018-04-16] MEDS ORDERED: DEXTROSE 50% 25 GM / 50ML DISP.SYRIN. IV PRN (17:00)
[2018-04-16] MEDS: ALPRAZolam 1 MG TABLET PO PRN ×2 (17:45→22:08)
[2018-04-16] MEDS: LIDOCAINE (700MG/PATCH) PATCH. TD SCH (17:45)
[2018-04-16] MEDS: DOCUSATE SODIUM 100 MG CAPSULE. PO SCH (17:45)
--- NOTE | 2018-04-16 18:01 | PDOC1 ---
History and Physical Date of Admission Date of Admission DATE: 04/16/18 TIME: 17:57 Identification/Chief Complaint Chief Complaint chest pain Source Source: Chart review, Patient History of Present Illness History of Present Illness Frederick is a 57-year-old male admit from ER with acute chest pain. Left sided pain that began last night at about 10:30 PM. sharp pain to left, maybe with pressure, not during exertion, he is worried about pain due to prior CABG pain now feels like a deep ache, but can be reproduced, Currently he rates pain at a 7 out of 10. Patient states that nothing improves his symptoms. Past Medical History Cardiovascular: CAD Pulmonary: Bronchitis CENTRAL NERVOUS SYSTEM: CVA, Periperal neuropathy GI: Other Heme/Onc: No pertinent hx Hepatobiliary: No pertinent hx Musculoskeletal: Osteoarthritis Rheumatologic: No pertinent hx Infectious disease: No pertinent hx Renal/: No pertinent hx Past Surgical History Past Surgical History: Pacemaker, Cholecystectomy, CABG, Cystoscopy, Tonsillectomy Family History Family History: Coronary Artery Disease Social History Smoke: <1 pack per day ALCOHOL: rare Drugs: Marijuana Current Problem List Problem List Problems Medical Problems: (1) Fluid overload Status: Acute Current Medications Current Medications Current Medications Aspirin (Children'S Aspirin) 324 mg 1X ONCE PO Last administered on 04/16/18at 13:40; Start 04/16/18 at 12:30; Stop 04/16/18 at 12:31; Status DC Sodium Chloride 1,000 ml @ 1,000 mls/hr Q1H IV Last administered on 04/16/18at 13:40; Start 04/16/18 at 12:17; Stop 04/16/18 at 13:16; Status DC Morphine Sulfate (Morphine Sulfate) 4 mg 1X ONCE IV Last administered on at 14:58; Start 04/16/18 at 14:30; Stop 04/16/18 at 14:31; Status DC Magnesium Sulfate/ Dextrose 100 ml @ 100 mls/hr 1X ONCE IV Last administered on 04/16/18at 14:58; Start 04/16/18 at 14:45; Stop 04/16/18 at 15:44; Status DC Furosemide (Lasix) 40 mg 1X ONCE IVP Last administered on 04/16/18at 15:46; Start 04/16/18 at 15:15; Stop 04/16/18 at 15:16; Status DC Ondansetron HCl (Zofran) 4 mg PRN Q8HRS PRN IV NAUSEA/VOMITING Last administered on 04/16/18at 16:00; Start 04/16/18 at 15:30; Stop 04/17/18 at 15:29 Morphine Sulfate (Morphine Sulfate) 2 mg PRN Q2HR PRN IV PAIN; Start 04/16/18 at 15:30; Stop 04/17/18 at 15:29 Morphine Sulfate (Morphine Ir) 15 mg PRN Q4HRS PRN PO PAIN MODERATE TO SEVERE; Start 04/16/18 at 17:00 Insulin Human Lispro (HumaLOG) 0-5 UNITS TIDWMEALS SQ ; Start 04/16/18 at 17:00 Dextrose (Dextrose 50%-Water Syringe) 12.5 gm PRN Q15MIN PRN IV SEE COMMENTS; Start 04/16/18 at 17:00 Alprazolam (Xanax) 1 mg PRN TID PRN PO ANXIETY / AGITATION Last administered on 04/16/18at 17:45; Start 04/16/18 at 17:00 Amiodarone HCl (Cordarone) 200 mg DAILY PO ; Start 04/17/18 at 09:00 Amitriptyline HCl (Elavil) 20 mg QHS PO ; Start 04/16/18 at 21:00 Cyclobenzaprine HCl (Flexeril) 10 mg TID PO ; Start 04/16/18 at 21:00 Dicyclomine HCl (Bentyl) 20 mg PRN QID PRN PO abd pain; Start 04/16/18 at 17:00 Docusate Sodium (Colace) 100 mg BID66 PO Last administered on 04/16/18at 17:45; Start 04/16/18 at 18:00 Gabapentin (Neurontin) 300 mg TID PO ; Start 04/16/18 at 21:00 Insulin Glargine (Lantus) 10 units QHS SQ ; Start 04/16/18 at 21:00 Levetiracetam (Keppra) 500 mg BID PO ; Start 04/16/18 at 21:00 Lisinopril (Prinivil) 10 mg DAILY PO ; Start 04/17/18 at 09:00 Metoprolol Succinate (Toprol Xl) 100 mg DAILY PO ; Start 04/17/18 at 09:00 Oxycodone/ Acetaminophen (Percocet 5/325) 1 tab PRN Q6HRS PRN PO PAIN MODERATE ; Start 04/16/18 at 17:00 Atorvastatin Calcium (Lipitor) 80 mg QHS PO ; Start 04/16/18 at 21:00 Non-Formulary Medication (Magnesium Oxide (Mag-Oxide)) 1 tab BID PO ; Start at 21:00; Status UNV Polyethylene Glycol (miraLAX PACKET) 17 gm PRN DAILY PRN PO CONSTIPATION 2ND CHOICE; Start 04/17/18 at 09:00 Non-Formulary Medication (Potassium Chloride ) 20 meq DAILY PO ; Start 04/17/18 at 09:00; Status UNV Non-Formulary Medication (Spironolactone ) 1 tab DAILY PO ; Start 04/17/18 at 09 :00; Status UNV Non-Formulary Medication (Sucralfate (Carafate)) 1 gm BIDWMEALS PO ; Start 04/16 at 17:00; Status UNV Lidocaine (Lidoderm) 1 patch DAILY TD Last administered on 04/16/18at 17:45; Start 04/16/18 at 17:15 Miscellaneous (Lidoderm Patch Removal) 1 ea QHS MC ; Start 04/16/18 at 21:00; Status UNV Active Scripts Active Lantus Solostar (Insulin Glargine,Hum.rec.anlog) 100 Unit/1 Ml Insuln.pen 10 Units SQ QHS 30 Days Carafate (Sucralfate) 1 Gm Tablet 1 Gm PO BIDWMEALS 30 Days Percocet 5-325 Mg Tablet (Oxycodone/Acetaminophen) 1 Each Tablet 1 Tab PO PRN Q6HRS PRN 6 Days Mag-Oxide (Magnesium Oxide) 400 Mg Tablet 1 Tab PO BID 30 Days Cyclobenzaprine Hcl 10 Mg Tablet 10 Mg PO TID Polyethylene Glycol 3350 17 Gm Powd.pack 17 Gm PO PRN DAILY PRN 10 Days Colace (Docusate Sodium) 100 Mg Capsule 100 Mg PO BID66 28 Days Dicyclomine Hcl 10 Mg Capsule 20 Mg PO PRN QID PRN 14 Days Reported Alprazolam 1 Mg Tablet 1 Tab PO TID PRN Lisinopril 10 Mg Tablet 1 Tab PO DAILY Amitriptyline Hcl 10 Mg Tablet 2 Tab PO QHS Potassium Chloride 20 Meq Tablet.er 20 Meq PO DAILY Levetiracetam 500 Mg Tablet 1 Tab PO BID Gabapentin (Gabapentin) 300 Mg Capsule 300 Mg PO TID Atorvastatin Calcium 80 Mg Tablet 1 Tab PO DAILY Metoprolol Succinate ( Xl ) (Metoprolol Succinate) 100 Mg Tab.er.24h 1 Tab PO DAILY Spironolactone 25 Mg Tablet 1 Tab PO DAILY Amiodarone Hcl 200 Mg Tablet 1 Tab PO DAILY Allergies Allergies: Coded Allergies: Penicillins (Verified Allergy, Intermediate, 01/28/18) onion (Verified Allergy, Intermediate, 01/28/18) ROS General: YES: Fatigue, Malaise PSYCHOLOGICAL ROS: YES: Anxiety, Irritablity, Sleep disturbances; No: Behavioral Disorder, Concentration difficultie, Decreased libido, Depression, Disorientation, Hallucinations, Hostility, Memory difficulties, Mood Swings, Obsessive thoughts, Other HEENT: YES: Heacaches; No: Visual Changes, Hearing change, Nasal congestion, Nasal discharge, Oral lesions, Sinus pain, Sore Throat, Epistaxis, Sneezing, Snoring, Tinnitus, Vertigo, Vocal changes, Other Respiratory: No: Cough, Hemoptysis, Orthopnea, Pleuritic Pain, Shortness of breath, SOB with excertion, Sputum Changes, Stridor, Tachypnea, Wheezing, Other Cardiovascular: yes Chest Pain; No Palpitations, No Orthopnea, No Paroxysmal Noc. Dyspnea, No Edema, No Lt Headedness, No Other Gastrointestinal: Yes Nausea; No Vomiting, No Abdominal Pain, No Diarrhea, No Constipation, No Melena, No Hematochezia, No Other Genitourinary: No Dysuria, No Frequency, No Incontinence, No Hematuria, No Retention, No Discharge, No Urgency, No Pain, No Flank Pain, No Other, No , No , No , No , No , No , No Musculoskeletal: No Gait Disturbance, No Joint Pain, No Joint Stiffness, No Joint Swelling, No Muscle Pain, No Muscular Weakness, No Pain In:, No Swelling In:, No Other Neurological: No Behavorial Changes, No Bowel/Bladder ControlChng, No Confusion , No Dizziness, No Gait Disturbance, No Headaches, No Impaired Coord/balance, No Memory Loss, No Numbness/Tingling, No Seizures, No Speech Problems, No Tremors, No Visual Changes, No Weakness, No Other Skin: No Dry Skin, No Eczema, No Hair Changes, No Lumps, No Mole Changes, No Mottling, No Nail Changes, No Pruritus, No Rash, No Skin Lesion Changes, No Other, No Acne Physical Exam General: Alert, Oriented X3, mild distress HEENT: Atraumatic, PERRLA Lungs: Clear to auscultation, Normal air movement Heart: S1S2, no gallops, no murmurs Abdomen: Normal bowel sounds, Soft Extremities: No clubbing, No edema Skin: No rashes, No breakdown Neuro: Normal speech, Cranial nerves 3-12 NL Psych/Mental Status: Mood NL Vitals Vitals Vital Signs Date Time Temp Pulse Resp B/P (MAP) Pulse Ox O2 Delivery O2 Flow Rate FiO2 04/16/18 16:40 98.8 84 18 153/101 (118) 98 Room Air 98.8 Labs Labs Laboratory Tests Test 04/16/18 12:46 04/16/18 15:50 04/16/18 17:11 White Blood Count 5.5 x10^3/uL (4.0-11.0) Red Blood Count 4.24 x10^6/uL (4.30-5.70) Hemoglobin 12.9 g/dL (13.0-17.5) Hematocrit 39.3 % (39.0-53.0) Mean Corpuscular Volume 93 fL (79-100) Mean Corpuscular Hemoglobin 30 pg (25-35) Mean Corpuscular Hemoglobin Concent 33 g/dL (31-37) Red Cell Distribution Width 15.6 % (11.5-14.5) Platelet Count 209 x10^3/uL (140-400) Neutrophils (%) (Auto) 79 % (31-73) Lymphocytes (%) (Auto) 13 % (24-48) Monocytes (%) (Auto) 7 % (0-9) Eosinophils (%) (Auto) 1 % (0-3) Basophils (%) (Auto) 0 % (0-3) Neutrophils # (Auto) 4.3 x10^3uL (1.8-7.7) Lymphocytes # (Auto) 0.7 x10^3/uL (1.0-4.8) Monocytes # (Auto) 0.4 x10^3/uL (0.0-1.1) Eosinophils # (Auto) 0.1 x10^3/uL (0.0-0.7) Basophils # (Auto) 0.0 x10^3/uL (0.0-0.2) D-Dimer (Diana) 1.50 ug/mlFEU (0.00-0.50) Sodium Level 138 mmol/L (136-145) Potassium Level 4.4 mmol/L (3.5-5.1) Chloride Level 100 mmol/L (98-107) Carbon Dioxide Level 29 mmol/L (21-32) Anion Gap 9 (6-14) Blood Urea Nitrogen 16 mg/dL (8-26) Creatinine 0.8 mg/dL (0.7-1.3) Estimated GFR (Cockcroft-Gault) 100.0 BUN/Creatinine Ratio 20 (6-20) Glucose Level 196 mg/dL (70-99) Calcium Level 9.1 mg/dL (8.5-10.1) Magnesium Level 1.4 mg/dL (1.8-2.4) Total Bilirubin 0.5 mg/dL (0.2-1.0) Aspartate Amino Transf (AST/SGOT) 27 U/L (15-37) Alanine Aminotransferase (ALT/SGPT) 53 U/L (16-63) Alkaline Phosphatase 208 U/L (46-116) Troponin I Quantitative < 0.017 ng/mL (0.000-0.055) SL-Qfd-E-Type Natriuretic Peptide 1982 pg/mL (0-124) Total Protein 7.5 g/dL (6.4-8.2) Albumin 3.4 g/dL (3.4-5.0) Albumin/Globulin Ratio 0.8 (1.0-1.7) Urine Collection Type Unknown Urine Color Yellow Urine Clarity Clear Urine pH 6.0 Urine Specific [place] 1.020 Urine Protein Negative mg/dL (NEG-TRACE) Urine Glucose (UA) 250 mg/dL (NEG) Urine Ketones (Stick) Negative mg/dL (NEG) Urine Blood Negative (NEG) Urine Nitrite Negative (NEG) Urine Bilirubin Negative (NEG) Urine Urobilinogen Dipstick 1.0 mg/dL (0.2 mg/dL) Urine Leukocyte Esterase Negative (NEG) Urine RBC 0 /HPF (0-2) Urine WBC 0 /HPF (0-4) Urine Bacteria 0 /HPF (0-FEW) Glucose (Fingerstick) 136 mg/dL (70-99) Laboratory Tests Test 04/16/18 12:46 04/16/18 15:50 04/16/18 17:11 White Blood Count 5.5 x10^3/uL (4.0-11.0) Red Blood Count 4.24 x10^6/uL (4.30-5.70) Hemoglobin 12.9 g/dL (13.0-17.5) Hematocrit 39.3 % (39.0-53.0) Mean Corpuscular Volume 93 fL (79-100) Mean Corpuscular Hemoglobin 30 pg (25-35) Mean Corpuscular Hemoglobin Concent 33 g/dL (31-37) Red Cell Distribution Width 15.6 % (11.5-14.5) Platelet Count 209 x10^3/uL (140-400) Neutrophils (%) (Auto) 79 % (31-73) Lymphocytes (%) (Auto) 13 % (24-48) Monocytes (%) (Auto) 7 % (0-9) Eosinophils (%) (Auto) 1 % (0-3) Basophils (%) (Auto) 0 % (0-3) Neutrophils # (Auto) 4.3 x10^3uL (1.8-7.7) Lymphocytes # (Auto) 0.7 x10^3/uL (1.0-4.8) Monocytes # (Auto) 0.4 x10^3/uL (0.0-1.1) Eosinophils # (Auto) 0.1 x10^3/uL (0.0-0.7) Basophils # (Auto) 0.0 x10^3/uL (0.0-0.2) D-Dimer (Diana) 1.50 ug/mlFEU (0.00-0.50) Sodium Level 138 mmol/L (136-145) Potassium Level 4.4 mmol/L (3.5-5.1) Chloride Level 100 mmol/L (98-107) Carbon Dioxide Level 29 mmol/L (21-32) Anion Gap 9 (6-14) Blood Urea Nitrogen 16 mg/dL (8-26) Creatinine 0.8 mg/dL (0.7-1.3) Estimated GFR (Cockcroft-Gault) 100.0 BUN/Creatinine Ratio 20 (6-20) Glucose Level 196 mg/dL (70-99) Calcium Level 9.1 mg/dL (8.5-10.1) Magnesium Level 1.4 mg/dL (1.8-2.4) Total Bilirubin 0.5 mg/dL (0.2-1.0) Aspartate Amino Transf (AST/SGOT) 27 U/L (15-37) Alanine Aminotransferase (ALT/SGPT) 53 U/L (16-63) Alkaline Phosphatase 208 U/L (46-116) Troponin I Quantitative < 0.017 ng/mL (0.000-0.055) AU-Tlv-Y-Type Natriuretic Peptide 1982 pg/mL (0-124) Total Protein 7.5 g/dL (6.4-8.2) Albumin 3.4 g/dL (3.4-5.0) Albumin/Globulin Ratio 0.8 (1.0-1.7) Urine Collection Type Unknown Urine Color Yellow Urine Clarity Clear Urine pH 6.0 Urine Specific [place] 1.020 Urine Protein Negative mg/dL (NEG-TRACE) Urine Glucose (UA) 250 mg/dL (NEG) Urine Ketones (Stick) Negative mg/dL (NEG) Urine Blood Negative (NEG) Urine Nitrite Negative (NEG) Urine Bilirubin Negative (NEG) Urine Urobilinogen Dipstick 1.0 mg/dL (0.2 mg/dL) Urine Leukocyte Esterase Negative (NEG) Urine RBC 0 /HPF (0-2) Urine WBC 0 /HPF (0-4) Urine Bacteria 0 /HPF (0-FEW) Glucose (Fingerstick) 136 mg/dL (70-99) VTE Prophylaxis Ordered VTE Prophylaxis Devices: Yes VTE Pharmacological Prophylaxi: Yes Assessment/Plan Assessment/Plan acute left sided chest pain hx CAD, s./p CABG, r/.o ACS reproducible pain, costochondritis, will put lidoderm patch tobaccoism THC abuse disorder admit SONIA BOSS MD Apr 16, 2018 18:01
[2018-04-16] MEDS: SUCRALFATE 1 GM TABLET. PO SCH (18:25)
[2018-04-16] MEDS ORDERED: MAGNESIUM SULFATE 4GM 100 ML IV ONE (19:00)
[2018-04-16] MEDS ORDERED: INSULIN GLARGINE 300 UNITS/3 ML INSULN.PEN. SQ SCH (21:00)
[2018-04-16] MEDS ORDERED: AMITRIPTYLINE HCL 10 MG TABLET. PO SCH (21:00)
[2018-04-16] MEDS ORDERED: PATCH REMOVAL. MC SCH (21:00)
[2018-04-16] MEDS ORDERED: ATORVASTATIN CALCIUM 40 MG TABLET. PO SCH (21:00)
[2018-04-16] MEDS: GABAPENTIN 300 MG CAPSULE. PO SCH (22:07)
[2018-04-16] MEDS: CYCLOBENZAPRINE 10 MG TABLET. PO SCH (22:07)
[2018-04-16] MEDS: levETIRAcetam 500 MG TABLET PO SCH (22:07)
[2018-04-16] MEDS: MAGNESIUM OXIDE 400 MG TABLET PO SCH (22:08)
[2018-04-16 22:21] VITALS: BP 127/77
[2018-04-17 03:33] VITALS: BP 142/85
[2018-04-17] MEDS: DOCUSATE SODIUM 100 MG CAPSULE. PO SCH (06:00)
[2018-04-17 07:30] VITALS: BP 149/85
[2018-04-17] MEDS ORDERED: POTASSIUM CHLORIDE 20 MEQ TABLET.ER. PO SCH (08:00)
[2018-04-17] MEDS: INSULIN LISPRO 300 UNITS/3 ML INSULN.PEN. SQ SCH ×2 (08:00→12:00)
[2018-04-17] MEDS ORDERED: AMIODARONE HCL 200 MG TABLET. PO SCH (09:00)
[2018-04-17] MEDS ORDERED: LISINOPRIL 10 MG TABLET PO SCH (09:00)
[2018-04-17] MEDS ORDERED: METOPROLOL SUCC 24HR ER 100 MG TAB.ER.24H. PO SCH (09:00)
[2018-04-17] MEDS ORDERED: POLYETHYLENE GLYCOL 3350 17 GM PACKET. PO PRN (09:00)
[2018-04-17] MEDS ORDERED: SPIRONOLACTONE 25 MG TABLET PO SCH (09:00)
[2018-04-17] MEDS: levETIRAcetam 500 MG TABLET PO SCH (09:19)
[2018-04-17] MEDS: SUCRALFATE 1 GM TABLET. PO SCH (09:19)
[2018-04-17] MEDS: CYCLOBENZAPRINE 10 MG TABLET. PO SCH ×2 (09:20→14:27)
[2018-04-17] MEDS: GABAPENTIN 300 MG CAPSULE. PO SCH ×2 (09:20→14:27)
[2018-04-17] MEDS: MAGNESIUM OXIDE 400 MG TABLET PO SCH (09:20)
[2018-04-17] MEDS: LIDOCAINE (700MG/PATCH) PATCH. TD SCH (09:24)
--- NOTE | 2018-04-17 09:35 | NUR ---
Called back after she called to check on patient. Code [id number] given to her to be able to check his status She states that the problem they are having is that his doctor is in [facility] and that he doesn't have any transportation to be seen.
--- NOTE | 2018-04-17 10:09 | EKG ---
[facility] [address] [place] [address] Test Date: 2018-04-16 Test Time: 12:02:05 Pat Name: MIKE MITTAL Department: Room: 210 1 Gender: M Public Address Servicer: : [id number] Requested By: REN PURCELL Order Number: [id number] Reading MD: Huy Hatfield MD Measurements Intervals [place] Rate: 81 P: 50 NV: 170 QRS: 23 QRSD: 90 T: 96 QT: 368 QTc: 433 Interpretive Statements SINUS RHYTHM NON-SPECIFIC ST/T CHANGES Electronically Signed On 04-27-2018 12:13:57 NURSE REVIEWER by Huy Hatfield MD
[2018-04-17 11:20] VITALS: BP 139/91
--- NOTE | 2018-04-17 11:47 | NUR ---
SS following for discharge planning. Pt is from home with spouse and currently on room air. No discharge needs noted at this time. SS will continue to follow for pending discharge needs. Pt's RN did report that pt's PCP is in [place], [place]. Recommended that pt find PCP closer to home. Pt has [place] Medicaid.
--- NOTE | 2018-04-17 12:05 | NUR ---
[employer]'s notified of need for AICD check.
--- NOTE | 2018-04-17 12:12 | PDOC2 ---
MICHELLE LOPEZ BLASTING COAL MINER 04/17/18 1212: CARDIAC CONSULT DATE OF CONSULT Date of Consult DATE: 04/17/18 TIME: 11:54 REASON FOR CONSULT Reason for Consult: Chest pain REFERRING PHYSICIAN Referring Physician: Chalo SOURCE Source: Chart review, Patient HISTORY OF PRESENT ILLNESS HISTORY OF PRESENT ILLNESS This is a 57 yo male admitted for complains of chest pain. This is sharp and not associated with SOA. Currently he is limited in his response to my questions and sidelying trying to go to sleep. He did tell me that he ran out of meds and has not followed with his [facility] environmental epidemiologist and told me as he told me before that he will tell his . He has come here several times in the last 3 months and has been noncompliant with his treatments. Presently he is no distress and just want to be left alone. He actually got mad when his morphine was not given. PAST MEDICAL HISTORY Past Medical History Cardiovascular: CAD, ICM, CHF, HTN, Hyperlipidemia, Other (PAD), atrial flutter (paroxysmal) Pulmonary: Bronchitis CENTRAL NERVOUS SYSTEM: Peripheral neuropathy, CVA GI: Other (Rectal bleed? 04/2016), appendicitis Heme/Onc: No pertinent hx Hepatobiliary: No pertinent hx Psych: Anxiety, addictions (ETOH history, narcotics, meth) Musculoskeletal: Osteoarthritis Rheumatologic: No pertinent hx Infectious disease: No pertinent hx ENT: No pertinent hx Renal/: No pertinent hx Endocrine: Diabetes (2) PAST SURGICAL HISTORY Past Surgical History CABG (x4 in 2014), Other (right hand surgery), Lap hermila Pacemaker (AICD- brand unknown), Cholecystectomy, Tonsillectomy FAMILY HISTORY Family History: Coronary Artery Disease SOCIAL HISTORY Social History Smoke: No ALCOHOL: occasional Drugs: Marijuana, Meth(history)- denies present use Lives: with Family CURRENT MEDICATIONS CURRENT MEDICATIONS Current Medications Medications (Trade) Dose Ordered Sig/Doris Route PRN Reason Start Time Stop Time Status Last Admin Dose Admin Aspirin (Children'S Aspirin) 324 mg 1X ONCE PO 04/16/18 12:30 04/16/18 12:31 DC 04/16/18 13:40 Sodium Chloride 1,000 ml @ 1,000 mls/hr Q1H IV 04/16/18 12:17 04/16/18 13:16 DC 04/16/18 13:40 Morphine Sulfate (Morphine Sulfate) 4 mg 1X ONCE IV 04/16/18 14:30 04/16/18 14:31 DC 04/16/18 14:58 Magnesium Sulfate/ Dextrose 100 ml @ 100 mls/hr 1X ONCE IV 04/16/18 14:45 04/16/18 15:44 DC 04/16/18 14:58 Furosemide (Lasix) 40 mg 1X ONCE IVP 04/16/18 15:15 04/16/18 15:16 DC 04/16/18 15:46 Ondansetron HCl (Zofran) 4 mg PRN Q8HRS PRN IV NAUSEA/VOMITING 04/16/18 15:30 04/17/18 15:29 04/16/18 16:00 Morphine Sulfate (Morphine Ir) 15 mg PRN Q4HRS PRN PO PAIN MODERATE TO SEVERE 04/16/18 17:00 04/16/18 18:02 Alprazolam (Xanax) 1 mg PRN TID PRN PO ANXIETY / AGITATION 04/16/18 17:00 04/16/18 22:08 Amiodarone HCl (Cordarone) 200 mg DAILY PO 04/17/18 09:00 04/17/18 09:20 Amitriptyline HCl (Elavil) 20 mg QHS PO 04/16/18 21:00 04/16/18 22:07 Cyclobenzaprine HCl (Flexeril) 10 mg TID PO 04/16/18 21:00 04/17/18 09:20 Docusate Sodium (Colace) 100 mg BID66 PO 04/16/18 18:00 04/17/18 06:00 Gabapentin (Neurontin) 300 mg TID PO 04/16/18 21:00 04/17/18 09:20 Insulin Glargine (Lantus) 10 units QHS SQ 04/16/18 21:00 04/16/18 22:15 Levetiracetam (Keppra) 500 mg BID PO 04/16/18 21:00 04/17/18 09:19 Lisinopril (Prinivil) 10 mg DAILY PO 04/17/18 09:00 04/17/18 09:20 Metoprolol Succinate (Toprol Xl) 100 mg DAILY PO 04/17/18 09:00 04/17/18 09:20 Oxycodone/ Acetaminophen (Percocet 5/325) 1 tab PRN Q6HRS PRN PO PAIN MODERATE 04/16/18 17:00 04/16/18 22:07 Atorvastatin Calcium (Lipitor) 80 mg QHS PO 04/16/18 21:00 04/16/18 22:07 Magnesium Oxide (Magnesium Oxide) 400 mg BID PO 04/16/18 21:00 04/17/18 09:20 Potassium Chloride (Klor-Con) 20 meq DAILYWBKFT PO 04/17/18 08:00 04/17/18 09:19 Spironolactone (Aldactone) 25 mg DAILY PO 04/17/18 09:00 04/17/18 09:20 Sucralfate (Carafate) 1 gm BIDWMEALS PO 04/16/18 18:30 04/17/18 09:19 Lidocaine (Lidoderm) 1 patch DAILY TD 04/16/18 17:15 04/17/18 09:24 Miscellaneous (Lidoderm Patch Removal) 1 ea QHS MC 04/16/18 21:00 04/16/18 21:00 Magnesium Sulfate/ Dextrose 100 ml @ 25 mls/hr 1X ONCE IV 04/16/18 19:00 04/16/18 22:59 DC 04/16/18 22:30 ALLERGIES ALLERGIES: Coded Allergies: Penicillins (Verified Allergy, Intermediate, 01/28/18) onion (Verified Allergy, Intermediate, 01/28/18) ROS Review of System Limited, does not want to talk PHYSICAL EXAM General: Oriented X3, Cooperative, No acute distress HEENT: Atraumatic, Mucous membr. moist/pink Lungs: Clear to auscultation, Normal air movement Heart: Regular rate (SR), Normal S1, Normal S2, Other (2/6 diastolic murmur to apex) Abdomen: Soft, No tenderness Extremities: No cyanosis, No edema Skin: No breakdown, No significant lesion Neuro: Sensation intact Psych/Mental Status: Other (flat affect) MUSCULOSKELETAL: Osteoarthritic changes both hands VITALS VITALS Vital Signs Date Time Temp Pulse Resp B/P (MAP) Pulse Ox O2 Delivery O2 Flow Rate FiO2 04/17/18 11:20 97.4 77 16 139/91 (107) 96 Room Air 97.4 LABS Lab: Laboratory Tests Test 04/16/18 12:46 04/16/18 15:50 04/16/18 17:11 04/16/18 19:00 White Blood Count 5.5 x10^3/uL (4.0-11.0) Red Blood Count 4.24 x10^6/uL (4.30-5.70) Hemoglobin 12.9 g/dL (13.0-17.5) Hematocrit 39.3 % (39.0-53.0) Mean Corpuscular Volume 93 fL (79-100) Mean Corpuscular Hemoglobin 30 pg (25-35) Mean Corpuscular Hemoglobin Concent 33 g/dL (31-37) Red Cell Distribution Width 15.6 % (11.5-14.5) Platelet Count 209 x10^3/uL (140-400) Neutrophils (%) (Auto) 79 % (31-73) Lymphocytes (%) (Auto) 13 % (24-48) Monocytes (%) (Auto) 7 % (0-9) Eosinophils (%) (Auto) 1 % (0-3) Basophils (%) (Auto) 0 % (0-3) Neutrophils # (Auto) 4.3 x10^3uL (1.8-7.7) Lymphocytes # (Auto) 0.7 x10^3/uL (1.0-4.8) Monocytes # (Auto) 0.4 x10^3/uL (0.0-1.1) Eosinophils # (Auto) 0.1 x10^3/uL (0.0-0.7) Basophils # (Auto) 0.0 x10^3/uL (0.0-0.2) D-Dimer (Diana) 1.50 ug/mlFEU (0.00-0.50) Sodium Level 138 mmol/L (136-145) Potassium Level 4.4 mmol/L (3.5-5.1) Chloride Level 100 mmol/L (98-107) Carbon Dioxide Level 29 mmol/L (21-32) Anion Gap 9 (6-14) Blood Urea Nitrogen 16 mg/dL (8-26) Creatinine 0.8 mg/dL (0.7-1.3) Estimated GFR (Cockcroft-Gault) 100.0 BUN/Creatinine Ratio 20 (6-20) Glucose Level 196 mg/dL (70-99) Calcium Level 9.1 mg/dL (8.5-10.1) Magnesium Level 1.4 mg/dL (1.8-2.4) Total Bilirubin 0.5 mg/dL (0.2-1.0) Aspartate Amino Transf (AST/SGOT) 27 U/L (15-37) Alanine Aminotransferase (ALT/SGPT) 53 U/L (16-63) Alkaline Phosphatase 208 U/L (46-116) Troponin I Quantitative < 0.017 ng/mL (0.000-0.055) < 0.017 ng/mL (0.000-0.055) YU-Rby-P-Type Natriuretic Peptide 1982 pg/mL (0-124) Total Protein 7.5 g/dL (6.4-8.2) Albumin 3.4 g/dL (3.4-5.0) Albumin/Globulin Ratio 0.8 (1.0-1.7) Urine Collection Type Unknown Urine Color Yellow Urine Clarity Clear Urine pH 6.0 Urine Specific [place] 1.020 Urine Protein Negative mg/dL (NEG-TRACE) Urine Glucose (UA) 250 mg/dL (NEG) Urine Ketones (Stick) Negative mg/dL (NEG) Urine Blood Negative (NEG) Urine Nitrite Negative (NEG) Urine Bilirubin Negative (NEG) Urine Urobilinogen Dipstick 1.0 mg/dL (0.2 mg/dL) Urine Leukocyte Esterase Negative (NEG) Urine RBC 0 /HPF (0-2) Urine WBC 0 /HPF (0-4) Urine Bacteria 0 /HPF (0-FEW) Glucose (Fingerstick) 136 mg/dL (70-99) Test 04/16/18 21:08 04/16/18 23:15 04/17/18 07:32 Glucose (Fingerstick) 141 mg/dL (70-99) 91 mg/dL (70-99) Troponin I Quantitative 0.028 ng/mL (0.000-0.055) ECHOCARDIOGRAM ECHOCARDIOGRAM <Conclusion> The ejection fraction is moderate to severely impaired. The Ejection Fraction is 35%. There is severe hypokinesis of the distal 1/2 of the LV, involving mostly the anterior, septal and apical segments, suggestive of prior infarct. Pacer lead noted in RV/RA Mitral annular calcification, there is a mitral ring present. There is moderate mitral valve stenosis. Calculated mitral valve area is 0.9 cm2 with maximum pressure gradient of 16 mmHg and mean pressure gradient of 8.2 mmHg. Doppler and Color Flow revealed trace tricuspid regurgitation. There is mild pulmonary hypertension. The PA pressure was estimated at 39 mmHg. DATE: 01/27/18 1037 ASSESSMENT/PLAN ASSESSMENT/PLAN 1. Atypical Chest pain: likely MSK. Trops nml, EKG Sr without acute changes. 2. CAD s/p CABG 2014. clinically stable. 3. Chronic systolic CHF with ICM; Recent EF 35%, compensated 4. Paroxysmal atrial flutter; maintaining SR, brief burst of AFIB last night otherwise none further. Past med noted with amiodarone, dig and metoprolol. 5. DM2/HLP 6. Diabetes, II 7. H/o substance abuse: meth in the past and marijuana. Potential opioid seeking 8. AICD in situ: [employer]. 9. HTN: Controlled 10. Moderate mitral stenosis 11. Noncompliance: failed to follow up with his [facility] environmental epidemiologist, als verbalized that he ran out of some meds. Still uses marijuana 12. Superficial right cephalic vein thrombosis: per PCP Recommendations 1. Continue secondary prevention measures. Continue previous home meds. Not an anticoagulation candidate given his noncompliance. 2. Again encouraged to follow up with Dr. Olguin cardiology at [facility] 3. Continue on amiodarone, metoprolol. OAC removed recently per his specialist was placed on ASA 4. Interrogate device. MILLY VILLEGAS MD 04/17/18 1553: CARDIAC CONSULT ASSESSMENT/PLAN ASSESSMENT/PLAN Patient seen and examined. Agree with DRAPERY CUTTER MACHINE's assessment and plan. Chest pain with atypical features and most probably musculoskeletal. Myocardial infarction has been ruled out. CAD status clinically stable overall. Continue current secondary prevention measures. Chronic systolic heart failure well compensated. Maintaining sinus rhythm with amiodarone. Continue current medical regimen and follow-up with primary environmental epidemiologist. Thank you for your consultation. MICHELLE LOPEZ APRN Apr 17, 2018 12:12 MILLY VILLEGAS MD Apr 17, 2018 15:53
[2018-04-17 14:30] VITALS: BP 146/87
--- NOTE | 2018-04-17 14:54 | PDOC3 ---
Discharge Summary Visit Information Date of Admission: Apr 16, 2018 Date of Discharge: Apr 17, 2018 Admitting Diagnosis: atypical chest pain Final Diagnosis 1. Atypical Chest pain: likely MSK. Trops nml, EKG Sr without acute changes. 2. CAD s/p CABG 2014. clinically stable. 3. Chronic systolic CHF with ICM; Recent EF 35%, compensated 4. Paroxysmal atrial flutter; maintaining SR, brief burst of AFIB last night otherwise none further. Past med noted with amiodarone, dig and metoprolol. 5. DM2/HLP 6. Diabetes, II 7. H/o substance abuse: meth in the past and marijuana. Potential opioid seeking. 8. AICD in situ: medtronic. Interrogated and no abnormalities reported. 9. HTN: Controlled 10. Moderate mitral stenosis 11. Noncompliance: failed to follow up with his Research manager people, als verbalized that he ran out of some meds. Still uses marijuana 12. Superficial right cephalic vein thrombosis Brief Hospital Course Allergies Allergies Coded Allergies Type Severity Reaction Last Updated Verified Penicillins Allergy Intermediate 01/28/18 Yes onion Allergy Intermediate 01/28/18 Yes Vital Signs Vital Signs Date Time Temp Pulse Resp B/P (MAP) Pulse Ox O2 Delivery O2 Flow Rate FiO2 04/17/18 14:30 97.4 71 16 146/87 (106) 97 Room Air 97.4 Lab Results Laboratory Tests Test 04/16/18 12:46 04/16/18 15:50 04/16/18 17:11 04/16/18 19:00 White Blood Count 5.5 x10^3/uL (4.0-11.0) Red Blood Count 4.24 x10^6/uL (4.30-5.70) Hemoglobin 12.9 g/dL (13.0-17.5) Hematocrit 39.3 % (39.0-53.0) Mean Corpuscular Volume 93 fL (79-100) Mean Corpuscular Hemoglobin 30 pg (25-35) Mean Corpuscular Hemoglobin Concent 33 g/dL (31-37) Red Cell Distribution Width 15.6 % (11.5-14.5) Platelet Count 209 x10^3/uL (140-400) Neutrophils (%) (Auto) 79 % (31-73) Lymphocytes (%) (Auto) 13 % (24-48) Monocytes (%) (Auto) 7 % (0-9) Eosinophils (%) (Auto) 1 % (0-3) Basophils (%) (Auto) 0 % (0-3) Neutrophils # (Auto) 4.3 x10^3uL (1.8-7.7) Lymphocytes # (Auto) 0.7 x10^3/uL (1.0-4.8) Monocytes # (Auto) 0.4 x10^3/uL (0.0-1.1) Eosinophils # (Auto) 0.1 x10^3/uL (0.0-0.7) Basophils # (Auto) 0.0 x10^3/uL (0.0-0.2) D-Dimer (Diana) 1.50 ug/mlFEU (0.00-0.50) Sodium Level 138 mmol/L (136-145) Potassium Level 4.4 mmol/L (3.5-5.1) Chloride Level 100 mmol/L (98-107) Carbon Dioxide Level 29 mmol/L (21-32) Anion Gap 9 (6-14) Blood Urea Nitrogen 16 mg/dL (8-26) Creatinine 0.8 mg/dL (0.7-1.3) Estimated GFR (Cockcroft-Gault) 100.0 BUN/Creatinine Ratio 20 (6-20) Glucose Level 196 mg/dL (70-99) Calcium Level 9.1 mg/dL (8.5-10.1) Magnesium Level 1.4 mg/dL (1.8-2.4) Total Bilirubin 0.5 mg/dL (0.2-1.0) Aspartate Amino Transf (AST/SGOT) 27 U/L (15-37) Alanine Aminotransferase (ALT/SGPT) 53 U/L (16-63) Alkaline Phosphatase 208 U/L (46-116) Troponin I Quantitative < 0.017 ng/mL (0.000-0.055) < 0.017 ng/mL (0.000-0.055) WW-Rex-T-Type Natriuretic Peptide 1982 pg/mL (0-124) Total Protein 7.5 g/dL (6.4-8.2) Albumin 3.4 g/dL (3.4-5.0) Albumin/Globulin Ratio 0.8 (1.0-1.7) Urine Collection Type Unknown Urine Color Yellow Urine Clarity Clear Urine pH 6.0 Urine Specific [place] 1.020 Urine Protein Negative mg/dL (NEG-TRACE) Urine Glucose (UA) 250 mg/dL (NEG) Urine Ketones (Stick) Negative mg/dL (NEG) Urine Blood Negative (NEG) Urine Nitrite Negative (NEG) Urine Bilirubin Negative (NEG) Urine Urobilinogen Dipstick 1.0 mg/dL (0.2 mg/dL) Urine Leukocyte Esterase Negative (NEG) Urine RBC 0 /HPF (0-2) Urine WBC 0 /HPF (0-4) Urine Bacteria 0 /HPF (0-FEW) Glucose (Fingerstick) 136 mg/dL (70-99) Test 04/16/18 21:08 04/16/18 23:15 04/17/18 07:32 04/17/18 11:58 Glucose (Fingerstick) 141 mg/dL (70-99) 91 mg/dL (70-99) 86 mg/dL (70-99) Troponin I Quantitative 0.028 ng/mL (0.000-0.055) Laboratory Tests Test 04/16/18 15:50 04/16/18 17:11 04/16/18 19:00 04/16/18 21:08 Urine Collection Type Unknown Urine Color Yellow Urine Clarity Clear Urine pH 6.0 Urine Specific [place] 1.020 Urine Protein Negative mg/dL (NEG-TRACE) Urine Glucose (UA) 250 mg/dL (NEG) Urine Ketones (Stick) Negative mg/dL (NEG) Urine Blood Negative (NEG) Urine Nitrite Negative (NEG) Urine Bilirubin Negative (NEG) Urine Urobilinogen Dipstick 1.0 mg/dL (0.2 mg/dL) Urine Leukocyte Esterase Negative (NEG) Urine RBC 0 /HPF (0-2) Urine WBC 0 /HPF (0-4) Urine Bacteria 0 /HPF (0-FEW) Glucose (Fingerstick) 136 mg/dL (70-99) 141 mg/dL (70-99) Troponin I Quantitative < 0.017 ng/mL (0.000-0.055) Test 04/16/18 23:15 04/17/18 07:32 04/17/18 11:58 Troponin I Quantitative 0.028 ng/mL (0.000-0.055) Glucose (Fingerstick) 91 mg/dL (70-99) 86 mg/dL (70-99) Brief Hospital Course Mr. Cervantes is a 57 old male with multiple medical comorbidities who presented with chest discomfort. Patient was admitted for rule out. His troponing were negative as part of his work up he had an ultraosung of his upper extremity with no evidence of DVT he had a superficial cephalic vein thrombosis with no clinical relevance. analytics consultant deemed the patient appropriate for discharge. The following recommendations were done. Recommendations 1. Continue secondary prevention measures. Continue previous home meds. Not an anticoagulation candidate given his noncompliance. 2. Again encouraged to follow up with Dr. Olguin cardiology at [facility] 3. Continue on amiodarone, metoprolol. OAC removed recently per his specialist was placed on ASA 4. Interrogate device. Patient's device was interogatecd with no abmormalities reported. All concerns addressed to the best of my abilities. Signs and symptoms of alarm discussed prior to discharge. I placed a phone call to the patient's to give an update. Discharge Information Condition at Discharge: Improved Follow Up: Weeks Disposition/Orders: D/C to Home Scheduled Amiodarone Hcl (Amiodarone Hcl) 200 Mg Tablet, 1 TAB PO DAILY, #90 Ref 1 ( Reported) Entered as Reported by: ASHLEY MCKOY on 09/25/161826 Last Action: Continued on 04/16/181653 by SONIA BOSS Amitriptyline Hcl (Amitriptyline Hcl) 10 Mg Tablet, 2 TAB PO QHS for sleep, #30 Ref 1 (Reported) Entered as Reported by: CHAVA JACKSON on 01/27/181127 Last Action: Continued on 04/16/181653 by SONIA BOSS Atorvastatin Calcium (Atorvastatin Calcium) 80 Mg Tablet, 1 TAB PO DAILY for HLD , #30 Ref 5 (Reported) Entered as Reported by: CHAVA JACKSON on 01/27/181127 Last Action: Converted on 04/16/181653 by SONIA BOSS Cyclobenzaprine Hcl (Cyclobenzaprine Hcl) 10 Mg Tablet, 10 MG PO TID, #30 Prescribed by: MARY MAGUIRE on 03/12/18 022 Last Action: Continued on 04/16/181653 by SONIA BOSS Docusate Sodium (Colace) 100 Mg Capsule, 100 MG PO BID66 for CONSTIPATION for 28 Days, #56 Prescribed by: SARAH RUDD MD on 02/12/18 1451 Last Action: Continued on 04/16/181653 by SONIA BOSS Gabapentin (Gabapentin ) 300 Mg Capsule, 300 MG PO TID for PN, (Reported) Entered as Reported by: CHAVA JACKSON on 01/27/181127 Last Action: Continued on 04/16/181653 by SONIA BOSS Insulin Glargine,Hum.rec.anlog (Lantus Solostar) 100 Unit/1 Ml Insuln.pen, 10 UNITS SQ QHS for DM for 30 Days, #30 Ref 2 Prescribed by: DEJUAN GANNON MD on 03/23/18 1234 Last Action: Continued on 04/16/181653 by SONIA BOSS Levetiracetam (Levetiracetam) 500 Mg Tablet, 1 TAB PO BID for seizures, #180 Ref 3 (Reported) Entered as Reported by: CHAVA JACKSON on 01/27/181127 Last Action: Continued on 04/16/181653 by SONIA BOSS Lisinopril (Lisinopril) 10 Mg Tablet, 1 TAB PO DAILY for HTN, #30 Ref 5 ( Reported) Entered as Reported by: CHAVA JACKSON on 01/27/181127 Last Action: Continued on 04/16/181653 by SONIA BOSS Magnesium Oxide (Mag-Oxide) 400 Mg Tablet, 1 TAB PO BID for supplement for 30 Days, #60 Ref 5 Prescribed by: DEJUAN GANNON MD on 03/23/18 1234 Last Action: Converted on 04/16/181653 by SONIA BOSS Metoprolol Succinate (Metoprolol Succinate ( Xl )) 100 Mg Tab.er.24h, 1 TAB PO DAILY for HTN, #30 Ref 5 (Reported) Entered as Reported by: CHAVA JACKSON on 01/27/181127 Last Action: Continued on 04/16/181653 by SONIA BOSS Potassium Chloride (Potassium Chloride) 20 Meq Tablet.er, 20 MEQ PO DAILY for supplement, (Reported) Entered as Reported by: CHAVA JACKSON on 01/27/181127 Last Action: Converted on 04/16/181653 by SONIA BOSS Spironolactone (Spironolactone) 25 Mg Tablet, 1 TAB PO DAILY, #90 Ref 1 ( Reported) Entered as Reported by: ASHLEY MCKOY on 09/25/16 1830 Last Action: Converted on 04/16/181653 by SONIA BOSS Sucralfate (Carafate) 1 Gm Tablet, 1 GM PO BIDWMEALS for GERD for 30 Days, #60 Prescribed by: DEJUAN GANNON MD on 03/23/18 1234 Last Action: Converted on 04/16/181653 by SONIA BOSS Scheduled PRN Alprazolam (Alprazolam) 1 Mg Tablet, 1 TAB PO TID PRN for ANXIETY / AGITATION, # 90 (Reported) Entered as Reported by: LINDA PACHECO RN on 02/27/182038 Last Action: Continued on 04/16/181653 by SONIA BOSS Dicyclomine Hcl (Dicyclomine Hcl) 10 Mg Capsule, 20 MG PO PRN QID PRN for abd pain for 14 Days, #60 Prescribed by: SARAH RUDD MD on 01/29/18 1204 Last Action: Continued on 04/16/181653 by SONIA BOSS Oxycodone/Apap 5-325 (Percocet 5-325 Mg Tablet ) 1 Each Tablet, 1 TAB PO PRN Q6HRS PRN for PAIN for 6 Days, #18 Ref 0 Prescribed by: DEJUAN GANNON MD on 03/23/18 1234 Last Action: Continued on 04/16/181653 by SONIA BOSS Polyethylene Glycol 3350 (Polyethylene Glycol 3350) 17 Gm Powd.pack, 17 GM PO PRN DAILY PRN for CONSTIPATION 2ND CHOICE for 10 Days, #10 Prescribed by: SARAH RUDD MD on 02/12/18 1451 Last Action: Converted on 04/16/181653 by GIULIANA CAREY MD Apr 17, 2018 14:54
--- NOTE | 2018-04-17 15:40 | NUR ---
Patient discharged home with all personal belongings. Requested gas money to get home. Informed patient that I can assist him with transportation with a taxi but unable to get him a gas voucher. Patient dissatisfied with discharge and states that he will be right back in. Patient states that everyone has been waking him up every couple hours and unable to get any sleep here. States that he just wants to sleep and be left alone. Explained to patient that all the tests were negative and that it is recommended that he followup with his primary care doctor and his cardiology. Patient states that he can't get into see his primary care doctor. Patient refused ride and was taken out by wheelchair to the main entrance.
--- NOTE | 2018-04-17 16:10 | NUR ---
Call to [facility] pharmacy to determine patient's last time filling prescriptions at their pharmacy. Patient had the following medications filled on Apr 04, 2018: Furosemide, Lisinopril, tizanidine, metoprolol, docusate sodium, potassium chloride, atorvastatin, Gabapentin, Amitriptyline, and Janumet XR.
== END 2018-04-17 15:40 | disposition home or self-care (01) | DRG 206 ==
LOC: ER 11:54 → 2 NORTH 15:14
PROVIDERS: ADMIT Internal Medicine; ATTEND Internal Medicine
PROC: 4A02XFZ Measurement of Cardiac Rhythm, External Approach (ICD-10-PCS; principal; 2018-04-17)
DX: M94.0 Chondrocostal junction syndrome [Tietze] (principal); I48.92 Unspecified atrial flutter; I50.22 Chronic systolic (congestive) heart failure; I82.611 Acute embolism and thrombosis of superficial veins of right upper extremity; R07.89 Other chest pain; Z95.810 Presence of automatic (implantable) cardiac defibrillator; E78.5 Hyperlipidemia, unspecified; F12.10 Cannabis abuse, uncomplicated; F17.210 Nicotine dependence, cigarettes, uncomplicated; I05.0 Rheumatic mitral stenosis; I11.0 Hypertensive heart disease with heart failure; I25.10 Atherosclerotic heart disease of native coronary artery without angina pectoris; F15.10 Other stimulant abuse, uncomplicated; F41.9 Anxiety disorder, unspecified; E11.42 Type 2 diabetes mellitus with diabetic polyneuropathy; M19.90 Unspecified osteoarthritis, unspecified site; Z88.0 Allergy status to penicillin; I25.2 Old myocardial infarction; Z82.49 Family history of ischemic heart disease and other diseases of the circulatory system; Z86.73 Personal history of transient ischemic attack (TIA), and cerebral infarction without residual deficits; Z90.49 Acquired absence of other specified parts of digestive tract; Z91.19 Patient's noncompliance with other medical treatment and regimen; Z95.1 Presence of aortocoronary bypass graft; Z95.5 Presence of coronary angioplasty implant and graft; Z87.01 Personal history of pneumonia (recurrent); Z88.8 Allergy status to other drugs, medicaments and biological substances
CPT/HCPCS: 36415; 71045; 80053; 81001; 82962; 83735; 83880; 84484; 85025; 85379; 93005; 93971; 96361; 96365; 96375; 99406; J1815; J1940; J2270; J2405; J3475; J7030; 99285-25

== ENCOUNTER 2018-06-20 15:04 | Inpatient (IN) | payer MEDICAID ==
[~2018-06-20] VITALS: Ht 177.8 cm; Wt 68.0 kg
[2018-06-20] MEDS ORDERED: IV NORMAL SALINE 1000ML BAG 1,000 ML IV ONE (15:30)
--- NOTE | 2018-06-20 15:33 | PHYS DOC ---
Past Medical History Past Medical History: CAD, CVA, Diabetes-Type II, Hypertension, OR, Pneumonia, Seizure, Stroke, Other Additional Past Medical Histor: OR X 5, STROKE X 3 Past Surgical History: Appendectomy, Cholecystectomy, Coronary Bypass Surgery, Pacemaker, Tonsillectomy, Other Additional Past Surgical Histo: Multiple Cardiac Stents, ICD, CABGX4 Alcohol Use: None Drug Use: Marijuana Adult General Chief Complaint Chief Complaint: ALTERED MENTAL STATUS HPI HPI Patient is a 57 year old male with history of CAD, hypertension, pacemaker, stroke, OR, diabetes type 2, who presents to the ED to be evaluated for increased weakness, altered mental status. Patient appears sleepy and currently a poor historian. From nursing staff this states he took oxycodone earlier tod ay. Patient himself states he is always sleepy. He states he was trying to get out of her recliner today and the noted he was increasingly weak and send him to the ED to be evaluated. Review of Systems Review of Systems Constitutional: Denies fever or chills [] Eyes: Denies change in visual acuity, redness, or eye pain [] HENT: Denies nasal congestion or sore throat [] Respiratory: Denies cough or shortness of breath [] Cardiovascular: No additional information not addressed in HPI [] GI: Denies abdominal pain, nausea, vomiting, bloody stools or diarrhea [] : Denies dysuria or hematuria [] Musculoskeletal: Denies back pain or joint pain [] Integument: Denies rash or skin lesions [] Neurologic: Reports altered mental status, weakness. Denies headache, focal weakness or sensory changes [] All other systems were reviewed and found to be within normal limits, except as documented in this note. Current Medications Current Medications Current Medications Medications (Trade) Dose Ordered Sig/Doris Start Time Stop Time Status Last Admin Dose Admin Sodium Chloride 1,000 ml @ 1,000 mls/hr 1X ONCE 06/20/18 15:30 06/20/18 16:29 DC 06/20/18 15:49 1,000 MLS/HR Allergies Allergies Allergies Coded Allergies Type Severity Reaction Last Updated Verified Penicillins Allergy Intermediate 01/28/18 Yes onion Allergy Intermediate 01/28/18 Yes Physical Exam Physical Exam Constitutional: Well developed, well nourished, no acute distress, non-toxic ap pearance. [] HENT: Normocephalic, atraumatic, bilateral external ears normal, oropharynx moist, no oral exudates, nose normal. [] Eyes: Pinpoint pupils. ALEX, EOMI, conjunctiva normal, no discharge. [] Neck: Normal range of motion, no tenderness, supple, no stridor. [] Cardiovascular:Heart rate regular rhythm, no murmur [] Lungs & Thorax: Bilateral breath sounds clear to auscultation [] Abdomen: Bowel sounds normal, soft, no tenderness, no masses, no pulsatile isac s. [] Skin: Warm, dry, no erythema, no rash. [] Back: No tenderness, no CVA tenderness. [] Extremities: No tenderness, no cyanosis, no clubbing, ROM intact, no edema. [] Neurologic: Appears sleepy but Alert and oriented X 3 when awoken, normal motor function, normal sensory function, no focal deficits noted. Cranial nerves II through XII intact. Psychologic: Affect normal, judgement normal, mood normal. [] Current Patient Data Vital Signs Vital Signs Date Time Temp Pulse Resp B/P (MAP) Pulse Ox O2 Delivery O2 Flow Rate FiO2 06/20/18 18:31 67 18 97 06/20/18 15:04 97.7 105/68 (80) Room Air 97.7 Lab Values Laboratory Tests Test 06/20/18 15:15 06/20/18 15:30 06/20/18 16:00 White Blood Count 8.7 x10^3/uL (4.0-11.0) Red Blood Count 4.67 x10^6/uL (4.30-5.70) Hemoglobin 13.7 g/dL (13.0-17.5) Hematocrit 41.4 % (39.0-53.0) Mean Corpuscular Volume 89 fL (79-100) Mean Corpuscular Hemoglobin 29 pg (25-35) Mean Corpuscular Hemoglobin Concent 33 g/dL (31-37) Red Cell Distribution Width 14.4 % (11.5-14.5) Platelet Count 148 x10^3/uL (140-400) Neutrophils (%) (Auto) 76 % (31-73) H Lymphocytes (%) (Auto) 13 % (24-48) L Monocytes (%) (Auto) 9 % (0-9) Eosinophils (%) (Auto) 1 % (0-3) Basophils (%) (Auto) 1 % (0-3) Neutrophils # (Auto) 6.7 x10^3uL (1.8-7.7) Lymphocytes # (Auto) 1.1 x10^3/uL (1.0-4.8) Monocytes # (Auto) 0.8 x10^3/uL (0.0-1.1) Eosinophils # (Auto) 0.1 x10^3/uL (0.0-0.7) Basophils # (Auto) 0.1 x10^3/uL (0.0-0.2) Prothrombin Time 15.2 SEC (11.7-14.0) H Prothrombin Time INR 1.2 (0.8-1.1) H PTT 34 SEC (24-38) Urine Collection Type Unknown Urine Color Yellow Urine Clarity Clear Urine pH 5.5 Urine Specific [place] 1.015 Urine Protein Negative mg/dL (NEG-TRACE) Urine Glucose (UA) 250 mg/dL (NEG) Urine Ketones (Stick) Negative mg/dL (NEG) Urine Blood Negative (NEG) Urine Nitrite Negative (NEG) Urine Bilirubin Negative (NEG) Urine Urobilinogen Dipstick 0.2 mg/dL (0.2 mg/dL) Urine Leukocyte Esterase Negative (NEG) Urine RBC 1-2 /HPF (0-2) Urine WBC 0 /HPF (0-4) Urine Squamous Epithelial Cells Few /LPF Urine Bacteria 0 /HPF (0-FEW) Urine Hyaline Casts Few /HPF Urine Mucus Slight /LPF Urine Opiates Screen Pos (NEG) Urine Methadone Screen Neg (NEG) Urine Barbiturates Neg (NEG) Urine Phencyclidine Screen Neg (NEG) Urine Amphetamine/Methamphetamine Pos (NEG) Urine Benzodiazepines Screen Pos (NEG) Urine Cocaine Screen Neg (NEG) Urine Cannabinoids Screen Pos (NEG) Urine Ethyl Alcohol Neg (NEG) Sodium Level 137 mmol/L (136-145) Potassium Level 4.6 mmol/L (3.5-5.1) Chloride Level 100 mmol/L (98-107) Carbon Dioxide Level 30 mmol/L (21-32) Anion Gap 7 (6-14) Blood Urea Nitrogen 26 mg/dL (8-26) Creatinine 1.3 mg/dL (0.7-1.3) Estimated GFR (Cockcroft-Gault) 57.1 BUN/Creatinine Ratio 20 (6-20) Glucose Level 153 mg/dL (70-99) H Calcium Level 8.5 mg/dL (8.5-10.1) Magnesium Level 1.4 mg/dL (1.8-2.4) L Total Bilirubin 0.6 mg/dL (0.2-1.0) Aspartate Amino Transferase (AST) 49 U/L (15-37) H Alanine Aminotransferase (ALT) 48 U/L (16-63) Alkaline Phosphatase 89 U/L (46-116) Creatine Kinase 306 U/L (39-308) Creatine Kinase MB (Mass) 1.8 ng/mL (0.0-3.6) Creatine Kinase MB Relative Index 0.6 % (0-4) Troponin I Quantitative < 0.017 ng/mL (0.000-0.055) CK-Tmg-G-Type Natriuretic Peptide 954 pg/mL (0-124) H Total Protein 5.7 g/dL (6.4-8.2) L Albumin 3.0 g/dL (3.4-5.0) L Albumin/Globulin Ratio 1.1 (1.0-1.7) Lipase 100 U/L (73-393) Thyroid Stimulating Hormone (TSH) 1.918 uIU/mL (0.358-3.74) Salicylates Level 5.4 mg/dL (2.8-20.0) Salicylate Last Dose Date Unknown Salicylate Last Dose Time Unknown Acetaminophen Level < 2 mcg/ml (10-30) L Acetaminophen Last Dose Date Unknown Acetaminophen Last Dose Time Unknown Ethyl Alcohol Level < 10 mg/dL (0-10) Laboratory Tests 06/20/18 15:15 Laboratory Tests 06/20/18 16:00 EKG EKG Intepreted by Dr. Mccarthy sinus rhythm HR 70 no STEMI[] Radiology/Procedures Radiology/Procedures []PROCEDURE: CT HEAD WO CONTRAST CT brain without contrast. HISTORY: Altered mental status, history of stroke CT scan of brain was compared with a prior study from February 09, 2018. There is no intracranial hemorrhage or subdural hematoma. There is encephalomalacia on the right in the frontal lobe, temporal lobe and parietal lobe from an old right middle cerebral artery CVA. Pattern is unchanged from the prior study. An acute CVA is not identified. Ventricles are normal in size. Visualized sinuses are clear. IMPRESSION: 1. 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 2. No intracranial hemorrhage or acute CVA noted. Electronically signed by: Wlii Plata MD (06/20/2018 4:32 PM) [facility] DICTATED and SIGNED BY: WILI PLATA MD DATE: 06/20/181631 REASON: AMS PROCEDURE: CT HEAD WO CONTRAST CT brain without contrast. HISTORY: Altered mental status, history of stroke CT scan of brain was compared with a prior study from February 09, 2018. There is no intracranial hemorrhage or subdural hematoma. There is encephalomalacia on the right in the frontal lobe, temporal lobe and parietal lobe from an old right middle cerebral artery CVA. Pattern is unchanged from the prior study. An acute CVA is not identified. Ventricles are normal in size. Visualized sinuses are clear. IMPRESSION: 1. 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 2. No intracranial hemorrhage or acute CVA noted. Electronically signed by: Wili Plata MD (06/20/2018 4:32 PM) [facility] DICTATED and SIGNED BY: WILI PLATA MD DATE: 06/20/181631 Course & Med Decision Making Course & Med Decision Making Pertinent Labs and Imaging studies reviewed. (See chart for details) This is a 57-year-old female patient presenting to the ED today to be evaluated for altered mental status, increased weakness. Symptoms began today though unknown what time. 16:24 called into the room by RN because patient is trying to leave AMA. Patient is currently awake alert and oriented 3. He states he wants to leave because at his house they eat dinner at 6 PM and he has been in the ED for over 1 hour and we did not give him anything to eat or drink. He is requesting coffee. Informed patient we cannot give him anything to eat or drink until we find results. She states he will walk out of the ED. Patient was given the risk of leaving AMA including and disability. At this point he is still in the ED waiting for his results. CBC with a normal WBC, CMP with no acute findings, CT of the head is negative, chest x-ray noted for possible right lower lobe infiltrate. Blood cultures were obtained, patient started on Rocephin and azithromycin. Also treated with Dr. Rayo who accepted patient for admission, he requested consult placed for pulmonology which was done. Dragon Disclaimer Dragon Disclaimer This electronic medical record was generated, in whole or in part, using a voice recognition dictation system. Departure Departure Impression: Primary Impression: Altered mental status Additional Impression: Right lower lobe pulmonary infiltrate Disposition: 09 ADMITTED INPATIENT Condition: STABLE Referrals: NO PCP (PCP) Problem Qualifiers Primary Impression: Altered mental status Altered mental status type: unspecified Qualified Codes: R41.82 - Altered mental status, unspecified MIGDALIA MEDINA STAGING TECHNICIAN Jun 20, 2018 15:33
[2018-06-20 15:36] LABS: BASO # 0.1 x10^3/uL (0.0-0.2); BASO % 1 % (0-3); EOS # 0.1 x10^3/uL (0.0-0.7); EOS % 1 % (0-3); HEMATOCRIT 41.4 % (39.0-53.0); HEMOGLOBIN 13.7 g/dL (13.0-17.5); LYMPH # 1.1 x10^3/uL (1.0-4.8); LYMPH % 13 % (24-48); MEAN CORPUSCULAR HEMOGLOBIN 29 pg (25-35); MEAN CORPUSCULAR HGB CONC 33 g/dL (31-37); MEAN CORPUSCULAR VOLUME 89 fL (79-100); MONO # 0.8 x10^3/uL (0.0-1.1); MONO % 9 % (0-9); NEUT # 6.7 x10^3uL (1.8-7.7); NEUT % 76 % (31-73); PLATELET COUNT 148 x10^3/uL (140-400); RED BLOOD COUNT 4.67 x10^6/uL (4.30-5.70); RED CELL DISTRIBUTION WIDTH 14.4 % (11.5-14.5); WHITE BLOOD COUNT 8.7 x10^3/uL (4.0-11.0)
[2018-06-20 15:50] LABS: PROTHROMBIN TIME PATIENT 15.2 SEC (11.7-14.0)
--- NOTE | 2018-06-20 16:02 | RAD ---
AP chest. HISTORY: Altered mental status AP view was taken of the chest. There is a right lower lobe infiltrate laterally, although fluid along the fissure can occasionally have this pattern. The heart is within normal limits in size. Left PICC maker is unchanged. IMPRESSION: 1. Right basilar density probably infiltrate PA and lateral views would be of benefit. Electronically signed by: Wili Plata MD (06/20/2018 3:59 PM) [id number]
[2018-06-20 16:24] LABS: CALCIUM 8.5 mg/dL (8.5-10.1); CREATININE 1.3 mg/dL (0.7-1.3); GFR 57.1; POTASSIUM 4.6 mmol/L (3.5-5.1)
[2018-06-20 16:29] LABS: ACETAMIN < 2 mcg/ml (10-30); ALBUMIN/GLOBULIN RATIO 1.1 (1.0-1.7); ETHANOL < 10 mg/dL (0-10); MAGNESIUM 1.4 mg/dL (1.8-2.4); SALIC 5.4 mg/dL (2.8-20.0); TOTAL BILIRUBIN 0.6 mg/dL (0.2-1.0); TOTAL PROTEIN 5.7 g/dL (6.4-8.2)
--- NOTE | 2018-06-20 16:35 | RAD ---
CT brain without contrast. HISTORY: Altered mental status, history of stroke CT scan of brain was compared with a prior study from February 09, 2018. There is no intracranial hemorrhage or subdural hematoma. There is encephalomalacia on the right in the frontal lobe, temporal lobe and parietal lobe from an old right middle cerebral artery CVA. Pattern is unchanged from the prior study. An acute CVA is not identified. Ventricles are normal in size. Visualized sinuses are clear. IMPRESSION: 1. 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 2. No intracranial hemorrhage or acute CVA noted. Electronically signed by: Wili Plata MD (06/20/2018 4:32 PM) [id number]
[2018-06-20 18:13] LABS: BILIRUBIN,URINE NEGATIVE (NEG); CLARITY,URINE CLEAR; COLOR,URINE YELLOW; NITRITE,URINE NEGATIVE (NEG); PH,URINE 5.5; PROTEIN,URINE NEGATIVE (NEG-TRACE); UROBILINOGEN,URINE 0.2 mg/dL (0.2 mg/dL)
[2018-06-20 18:21] LABS: AMPHETAMINE/METHAMPHETAMINE POS (NEG); BARBITURATES NEG (NEG); BENZODIAZEPINES POS (NEG); CANNABINOIDS POS (NEG); COCAINE NEG (NEG); METHADONE NEG (NEG); OPIATES POS (NEG); PHENCYCLIDINE NEG (NEG)
[2018-06-20 18:42] LABS: BACTERIA,URINE 0 /HPF (0-FEW); HYALINE CASTS, URINE FEW /HPF; SQUAMOUS EPITHELIAL CELL,UR FEW /LPF; WBC,URINE 0 /HPF (0-4)
[2018-06-20] MEDS ORDERED: cefTRIAXone IV Push 1 GM VIAL. IVP ONE (19:00)
[2018-06-20 19:45] VITALS: BP 145/93
[2018-06-20] MEDS ORDERED: ONDANSETRON PF 4 MG/2 ML VIAL. IV PRN (19:45)
[2018-06-20] MEDS ORDERED: ACETAMINOPHEN 325 MG TABLET. PO PRN (19:45)
--- NOTE | 2018-06-20 21:08 | PDOC1 ---
History and Physical Date of Admission: Date of Admission DATE: 06/20/18 TIME: 21:06 Chief Complaint: Problems: (1) Atrial fibrillation with RVR (2) Pancreatitis (3) Hyperkalemia (4) Abdominal pain (5) Elevated serum creatinine (6) Right lower quadrant abdominal pain (7) Pneumonia (8) Sprain of lumbar region (9) Chest pain, rule out acute myocardial infarction (10) Chest pain (11) Altered mental status (12) Right lower lobe pulmonary infiltrate Chief Complain: Mental status change shortness of breath and subjective 100 pound weight loss over the past 6 months History of Present Illness: HPI: Patient is a 57 year old male with history of CAD, hypertension, pacemaker, stroke, NH, diabetes type 2, who presents to the ED to be evaluated for increased weakness, altered mental status. Patient appears sleepy and currently a poor historian. From nursing staff this states he took oxycodone earlier today. Patient himself states he is always sleepy. He states he was trying to get out of her recliner today and the noted he was increasingly weak and send him to the ED to be evaluated. Patient rates his symptoms at 7 out of 10 states she lays had 100 pound weight loss over the past 6 months He tried increasing his diet but that doesn't seem to be helping He states he's had a colonoscopy in the past but not clear if he really has Seems to be a poor historian Discussed case with ER physician report with the patient in consult pulmonary for pneumonia treatment and hematologic to rule out occult cancer Past Medical/Surgical History: PMH/PSH: Past Medical History: CAD, CVA, Diabetes-Type II, Hypertension, NH, Pneumonia, Seizure, Stroke, Other Additional Past Medical Histor: NH X 5, STROKE X 3 Past Surgical History: Appendectomy, Cholecystectomy, Coronary Bypass Surgery, Pacemaker, Tonsillectomy, Other Additional Past Surgical Histo: Multiple Cardiac Stents, ICD, CABGX4 Alcohol Use: None Drug Use: Marijuana Allergies: Allergies: Coded Allergies: Penicillins (Verified Allergy, Intermediate, 01/28/18) onion (Verified Allergy, Intermediate, 01/28/18) Family History: Family History: CAD Social History: Social Hisoty: He denies drinking smoking or drugs states he does not work currently but 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 Current Medications: Current Medications Current Medications Sodium Chloride 1,000 ml @ 1,000 mls/hr 1X ONCE IV Last administered on 06/20/18at 15:49; Start 06/20/18 at 15:30; Stop 06/20/18 at 16:29; Status DC Ceftriaxone Sodium (Rocephin) 1 gm 1X ONCE IVP Last administered on 06/20/18at 18:52; Start 06/20/18 at 19:00; Stop 06/20/18 at 19:01; Status DC Ondansetron HCl (Zofran) 4 mg PRN Q8HRS PRN IV NAUSEA/VOMITING; Start 06/20/18 at 19:45; Stop 06/21/18 at 19:44 Morphine Sulfate (Morphine Sulfate) 2 mg PRN Q2HR PRN IV PAIN; Start 06/20/18 at 19:45; Stop 06/21/18 at 19:44 Acetaminophen (Tylenol) 650 mg PRN Q4HRS PRN PO FEVER; Start 06/20/18 at 19:45; Stop 06/21/18 at 19:44 Active Scripts Active Lantus Solostar (Insulin Glargine,Hum.rec.anlog) 100 Unit/1 Ml Insuln.pen 10 Units SQ QHS 30 Days Carafate (Sucralfate) 1 Gm Tablet 1 Gm PO BIDWMEALS 30 Days Percocet 5-325 Mg Tablet (Oxycodone/Acetaminophen) 1 Each Tablet 1 Tab PO PRN Q6HRS PRN 6 Days Mag-Oxide (Magnesium Oxide) 400 Mg Tablet 1 Tab PO BID 30 Days Cyclobenzaprine Hcl 10 Mg Tablet 10 Mg PO TID Polyethylene Glycol 3350 17 Gm Powd.pack 17 Gm PO PRN DAILY PRN 10 Days Colace (Docusate Sodium) 100 Mg Capsule 100 Mg PO [id number] 28 Days Dicyclomine Hcl 10 Mg Capsule 20 Mg PO PRN QID PRN 14 Days Reported Alprazolam 1 Mg Tablet 1 Tab PO TID PRN Lisinopril 10 Mg Tablet 1 Tab PO DAILY Amitriptyline Hcl 10 Mg Tablet 2 Tab PO QHS Potassium Chloride 20 Meq Tablet.er 20 Meq PO DAILY Levetiracetam 500 Mg Tablet 1 Tab PO BID Gabapentin (Gabapentin) 300 Mg Capsule 300 Mg PO TID Atorvastatin Calcium 80 Mg Tablet 1 Tab PO DAILY Metoprolol Succinate ( Xl ) (Metoprolol Succinate) 100 Mg Tab.er.24h 1 Tab PO DAILY Spironolactone 25 Mg Tablet 1 Tab PO DAILY Amiodarone Hcl 200 Mg Tablet 1 Tab PO DAILY ROS: Review of Systems Review of System REVIEW OF SYSTEMS: GENERAL: Complains of a 100 pound weight loss SKIN: No bruising, hair changes or rashes. EYES: No blurred, double or loss of vision. NOSE AND THROAT: No history of nosebleeds, hoarseness or sore throat. HEART: No history of palpitations, chest pain or shortness of breath on exertion. LUNGS: He complains of shortness of breath GASTROINTESTINAL: Denies changes in appetite, nausea, vomiting, diarrhea or constipation. GENITOURINARY: No history of frequency, urgency, hesitancy or nocturia. NEUROLOGIC: Denies history of numbness, tingling, tremor or weakness. PSYCHIATRIC: States he's been a little confused and depressed ENDOCRINE: No history of heat or cold intolerance, polyuria or polydipsia. EXTREMITIES: He complains of right hip pain and weakness Physical Exam: Vital Signs: Vital Signs Date Time Temp Pulse Resp B/P (MAP) Pulse Ox O2 Delivery O2 Flow Rate FiO2 06/20/18 19:45 97.9 65 20 145/93 (110) 100 Room Air 97.9 Physcial Exam: GEN.: He is very weak and confused and is a poor historian overall appears very thin for his age HEENT: He has some slight temporalis muscle wasting NECK: Supple, no JVD LUNGS: Slight wheezing with right rhonchi HEART: RRR, S1, S2 present. Peripheral pulses intact ABDOMEN: Soft, nontender. Positive bowel sounds no organomegaly EXTREMITIES: The right hip is painful to touch extremities overall are somewhat thin NEUROLOGIC: He is intermittently confused and very weak PSYCHIATRIC: He is depressed SKIN: No ulcerations or rashes Labs: Labs: Laboratory Tests Test 06/20/18 15:15 06/20/18 15:30 06/20/18 16:00 White Blood Count 8.7 x10^3/uL (4.0-11.0) Red Blood Count 4.67 x10^6/uL (4.30-5.70) Hemoglobin 13.7 g/dL (13.0-17.5) Hematocrit 41.4 % (39.0-53.0) Mean Corpuscular Volume 89 fL (79-100) Mean Corpuscular Hemoglobin 29 pg (25-35) Mean Corpuscular Hemoglobin Concent 33 g/dL (31-37) Red Cell Distribution Width 14.4 % (11.5-14.5) Platelet Count 148 x10^3/uL (140-400) Neutrophils (%) (Auto) 76 % (31-73) Lymphocytes (%) (Auto) 13 % (24-48) Monocytes (%) (Auto) 9 % (0-9) Eosinophils (%) (Auto) 1 % (0-3) Basophils (%) (Auto) 1 % (0-3) Neutrophils # (Auto) 6.7 x10^3uL (1.8-7.7) Lymphocytes # (Auto) 1.1 x10^3/uL (1.0-4.8) Monocytes # (Auto) 0.8 x10^3/uL (0.0-1.1) Eosinophils # (Auto) 0.1 x10^3/uL (0.0-0.7) Basophils # (Auto) 0.1 x10^3/uL (0.0-0.2) Prothrombin Time 15.2 SEC (11.7-14.0) Prothromb Time International Ratio 1.2 (0.8-1.1) Activated Partial Thromboplast Time 34 SEC (24-38) Urine Collection Type Unknown Urine Color Yellow Urine Clarity Clear Urine pH 5.5 Urine Specific [place] 1.015 Urine Protein Negative mg/dL (NEG-TRACE) Urine Glucose (UA) 250 mg/dL (NEG) Urine Ketones (Stick) Negative mg/dL (NEG) Urine Blood Negative (NEG) Urine Nitrite Negative (NEG) Urine Bilirubin Negative (NEG) Urine Urobilinogen Dipstick 0.2 mg/dL (0.2 mg/dL) Urine Leukocyte Esterase Negative (NEG) Urine RBC 1-2 /HPF (0-2) Urine WBC 0 /HPF (0-4) Urine Squamous Epithelial Cells Few /LPF Urine Bacteria 0 /HPF (0-FEW) Urine Hyaline Casts Few /HPF Urine Mucus Slight /LPF Urine Opiates Screen Pos (NEG) Urine Methadone Screen Neg (NEG) Urine Barbiturates Neg (NEG) Urine Phencyclidine Screen Neg (NEG) Urine Amphetamine/Methamphetamine Pos (NEG) Urine Benzodiazepines Screen Pos (NEG) Urine Cocaine Screen Neg (NEG) Urine Cannabinoids Screen Pos (NEG) Urine Ethyl Alcohol Neg (NEG) Sodium Level 137 mmol/L (136-145) Potassium Level 4.6 mmol/L (3.5-5.1) Chloride Level 100 mmol/L (98-107) Carbon Dioxide Level 30 mmol/L (21-32) Anion Gap 7 (6-14) Blood Urea Nitrogen 26 mg/dL (8-26) Creatinine 1.3 mg/dL (0.7-1.3) Estimated GFR (Cockcroft-Gault) 57.1 BUN/Creatinine Ratio 20 (6-20) Glucose Level 153 mg/dL (70-99) Calcium Level 8.5 mg/dL (8.5-10.1) Magnesium Level 1.4 mg/dL (1.8-2.4) Total Bilirubin 0.6 mg/dL (0.2-1.0) Aspartate Amino Transf (AST/SGOT) 49 U/L (15-37) Alanine Aminotransferase (ALT/SGPT) 48 U/L (16-63) Alkaline Phosphatase 89 U/L (46-116) Creatine Kinase 306 U/L (39-308) Creatine Kinase MB (Mass) 1.8 ng/mL (0.0-3.6) Creatine Kinase MB Relative Index 0.6 % (0-4) Troponin I Quantitative < 0.017 ng/mL (0.000-0.055) VS-Mvh-B-Type Natriuretic Peptide 954 pg/mL (0-124) Total Protein 5.7 g/dL (6.4-8.2) Albumin 3.0 g/dL (3.4-5.0) Albumin/Globulin Ratio 1.1 (1.0-1.7) Lipase 100 U/L (73-393) Thyroid Stimulating Hormone (TSH) 1.918 uIU/mL (0.358-3.74) Salicylates Level 5.4 mg/dL (2.8-20.0) Salicylate Last Dose Date Unknown Salicylate Last Dose Time Unknown Acetaminophen Level < 2 mcg/ml (10-30) Acetaminophen Last Dose Date Unknown Acetaminophen Last Dose Time Unknown Ethyl Alcohol Level < 10 mg/dL (0-10) Laboratory Tests Test 06/20/18 15:15 06/20/18 15:30 06/20/18 16:00 White Blood Count 8.7 x10^3/uL (4.0-11.0) Red Blood Count 4.67 x10^6/uL (4.30-5.70) Hemoglobin 13.7 g/dL (13.0-17.5) Hematocrit 41.4 % (39.0-53.0) Mean Corpuscular Volume 89 fL (79-100) Mean Corpuscular Hemoglobin 29 pg (25-35) Mean Corpuscular Hemoglobin Concent 33 g/dL (31-37) Red Cell Distribution Width 14.4 % (11.5-14.5) Platelet Count 148 x10^3/uL (140-400) Neutrophils (%) (Auto) 76 % (31-73) Lymphocytes (%) (Auto) 13 % (24-48) Monocytes (%) (Auto) 9 % (0-9) Eosinophils (%) (Auto) 1 % (0-3) Basophils (%) (Auto) 1 % (0-3) Neutrophils # (Auto) 6.7 x10^3uL (1.8-7.7) Lymphocytes # (Auto) 1.1 x10^3/uL (1.0-4.8) Monocytes # (Auto) 0.8 x10^3/uL (0.0-1.1) Eosinophils # (Auto) 0.1 x10^3/uL (0.0-0.7) Basophils # (Auto) 0.1 x10^3/uL (0.0-0.2) Prothrombin Time 15.2 SEC (11.7-14.0) Prothromb Time International Ratio 1.2 (0.8-1.1) Activated Partial Thromboplast Time 34 SEC (24-38) Urine Collection Type Unknown Urine Color Yellow Urine Clarity Clear Urine pH 5.5 Urine Specific [place] 1.015 Urine Protein Negative mg/dL (NEG-TRACE) Urine Glucose (UA) 250 mg/dL (NEG) Urine Ketones (Stick) Negative mg/dL (NEG) Urine Blood Negative (NEG) Urine Nitrite Negative (NEG) Urine Bilirubin Negative (NEG) Urine Urobilinogen Dipstick 0.2 mg/dL (0.2 mg/dL) Urine Leukocyte Esterase Negative (NEG) Urine RBC 1-2 /HPF (0-2) Urine WBC 0 /HPF (0-4) Urine Squamous Epithelial Cells Few /LPF Urine Bacteria 0 /HPF (0-FEW) Urine Hyaline Casts Few /HPF Urine Mucus Slight /LPF Urine Opiates Screen Pos (NEG) Urine Methadone Screen Neg (NEG) Urine Barbiturates Neg (NEG) Urine Phencyclidine Screen Neg (NEG) Urine Amphetamine/Methamphetamine Pos (NEG) Urine Benzodiazepines Screen Pos (NEG) Urine Cocaine Screen Neg (NEG) Urine Cannabinoids Screen Pos (NEG) Urine Ethyl Alcohol Neg (NEG) Sodium Level 137 mmol/L (136-145) Potassium Level 4.6 mmol/L (3.5-5.1) Chloride Level 100 mmol/L (98-107) Carbon Dioxide Level 30 mmol/L (21-32) Anion Gap 7 (6-14) Blood Urea Nitrogen 26 mg/dL (8-26) Creatinine 1.3 mg/dL (0.7-1.3) Estimated GFR (Cockcroft-Gault) 57.1 BUN/Creatinine Ratio 20 (6-20) Glucose Level 153 mg/dL (70-99) Calcium Level 8.5 mg/dL (8.5-10.1) Magnesium Level 1.4 mg/dL (1.8-2.4) Total Bilirubin 0.6 mg/dL (0.2-1.0) Aspartate Amino Transf (AST/SGOT) 49 U/L (15-37) Alanine Aminotransferase (ALT/SGPT) 48 U/L (16-63) Alkaline Phosphatase 89 U/L (46-116) Creatine Kinase 306 U/L (39-308) Creatine Kinase MB (Mass) 1.8 ng/mL (0.0-3.6) Creatine Kinase MB Relative Index 0.6 % (0-4) Troponin I Quantitative < 0.017 ng/mL (0.000-0.055) ML-Epq-K-Type Natriuretic Peptide 954 pg/mL (0-124) Total Protein 5.7 g/dL (6.4-8.2) Albumin 3.0 g/dL (3.4-5.0) Albumin/Globulin Ratio 1.1 (1.0-1.7) Lipase 100 U/L (73-393) Thyroid Stimulating Hormone (TSH) 1.918 uIU/mL (0.358-3.74) Salicylates Level 5.4 mg/dL (2.8-20.0) Salicylate Last Dose Date Unknown Salicylate Last Dose Time Unknown Acetaminophen Level < 2 mcg/ml (10-30) Acetaminophen Last Dose Date Unknown Acetaminophen Last Dose Time Unknown Ethyl Alcohol Level < 10 mg/dL (0-10) Images: Images 1. Right basilar density probably infiltrate PA and lateral views would be of benefit. There is also an old right stroke on CT of the head Assessment/Plan Assessment/Plan Pneumonia old stroke metabolic encephalopathy and subjective 100 pound weight loss (probably need to rule out occult cancer) Plan IV antibiotics DuoNeb's When necessary O2 Consult Dr. Monroy and Dr. Dubose Full code DVT prophylaxis Home meds PT OT Frequent labs Long-term prognosis guarded DEL ANGULO III DO Jun 20, 2018 21:08
[2018-06-20 23:00] VITALS: BP 140/87
[2018-06-21] MEDS: MORPHINE SULFATE 2 MG/ML VIAL. IV PRN ×6 (00:32→21:21)
[2018-06-21 03:00] VITALS: BP 132/81
[2018-06-21 03:38] LABS: BASO % 1 % (0-3); EOS # 0.1 x10^3/uL (0.0-0.7); EOS % 2 % (0-3); HEMATOCRIT 39.5 % (39.0-53.0); LYMPH # 1.2 x10^3/uL (1.0-4.8); LYMPH % 17 % (24-48); MEAN CORPUSCULAR HEMOGLOBIN 29 pg (25-35); MEAN CORPUSCULAR HGB CONC 33 g/dL (31-37); MEAN CORPUSCULAR VOLUME 89 fL (79-100); MONO # 0.6 x10^3/uL (0.0-1.1); MONO % 8 % (0-9); NEUT # 4.9 x10^3uL (1.8-7.7); NEUT % 72 % (31-73); PLATELET COUNT 123 x10^3/uL (140-400); RED BLOOD COUNT 4.45 x10^6/uL (4.30-5.70); RED CELL DISTRIBUTION WIDTH 14.5 % (11.5-14.5); WHITE BLOOD COUNT 6.8 x10^3/uL (4.0-11.0)
[2018-06-21 03:54] LABS: CALCIUM 8.9 mg/dL (8.5-10.1); CREATININE 0.9 mg/dL (0.7-1.3); GFR 87.3; POTASSIUM 4.4 mmol/L (3.5-5.1)
[2018-06-21 07:00] VITALS: BP 156/90
[2018-06-21 11:00] VITALS: BP 140/90
--- NOTE | 2018-06-21 12:02 | PDOC2 ---
CONSULT Date of Consult Date of Consult DATE: 06/21/18 TIME: 11:50 Reason for consultation: Weight loss Consult: Hematology oncology, Dr. Dat Castaneda History of present illness: He is a 57-year-old man with a history of 100 pound weight loss in 6 months per report, admitted because his noted him to be dizzy and disoriented, and for evaluation of possible malignancy as a cause of weight loss. 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 Extremely drowsy throughout the exam and sometimes hard to understand what he says because of his drowsiness. Barely opens his eyes. Past medical history: Coronary artery disease, [place] 5 Pacemaker Stroke 3 Diabetes mellitus 2 A. fib with RVR History of seizure CHF with EF 15% Right upper extremity superficial venous thrombophlebitis mar 2018 Peripheral neuropathy pneumonia Pulmonary nodules Mental status changes Mild splenomegaly seen on prior CT Emphysema on prior imaging History of rib fractures and possible vertebral compression fractures on prior imaging Past surgical history: Appendicitis treated medically December 2017 at , he tells me his appendix was removed but I'm not so sure Cholecystectomy CABG four-vessel Pacer/ICD Tonsillectomy PCI with cardiac stents Allergies: Penicillin and onion Medications: See attached list Social history: , not working, one healthy daughter, positive drugs, denies alcohol or tobacco Family history: Grandmother had unknown cancer Review of systems: Chest pain, headache, constipation and diarrhea, peripheral neuropathy in feet, joint pains, mental status changes, fatigue Physical exam: Vitals reviewed Gen.: Thin tired man, in no acute distress HEENT: mucous membranes moist, head normocephalic atraumatic Neck: Supple, no obvious lymphadenopathy Lymph nodes: No obvious lymphadenopathy neck or axilla Lungs: Breathing comfortably, no evidence of respiratory distress Abdomen: Soft, nondistended, tender to palpation diffusely with mild guarding Extremities: No cyanosis or edema Skin: No obvious skin breakdown, hyperpigmented scars on his lower extremities, extremely tender to the touch at his feet Neuro: Drowsy but able to answer questions Psych: Depressed mood and affect of apathy Lab reviewed: White count 6.8, hemoglobin 13, platelets 123, MCV of 89 INR of 1.2 PTT normal Creatinine 0.9 UDS positive for opiates, amphetamines, benzos, and cannabinoids ProBNP 954 Troponin negative TSH normal Lipase 100 T bili normal AST 49 Rads reviewed: CT head with old right MCA stroke Chest x-ray with right basilar density, probable infiltrate Case discussed with: Patient, records reviewed in [facility], including labs and radiology, please see note for summary details. Assessment and Plan: He is a 57-year-old male with admission for mental status changes, weight loss. Weight loss: We'll check CT chest abdomen and pelvis, possible splenomegaly on old CT as well as possible compression fractures and pulmonary nodules with three-month follow-up due now Thrombocytopenia: We'll check hepatitis panel, LDH, consider bone marrow biopsy if it persists with further workup as needed Prophylaxis: will order lovenox, (history of recent right upper extremity superficial venous thrombosis) Possible infiltrate on chest x-ray: Per primary Drug abuse: Recommend cessation Disposition: After clinical improvement Thank you kindly for this consultation, and please don't hesitate to call with any further questions. Past Medical History Cardiovascular: CAD Pulmonary: Bronchitis CENTRAL NERVOUS SYSTEM: CVA, Periperal neuropathy GI: Other Heme/Onc: No pertinent hx Hepatobiliary: No pertinent hx Musculoskeletal: Osteoarthritis Rheumatologic: No pertinent hx Infectious disease: No pertinent hx Renal/: No pertinent hx Past Surgical History Past Surgical History: Pacemaker, Cholecystectomy, CABG, Cystoscopy, Tonsillectomy Family History Family History: Coronary Artery Disease Social History ALCOHOL: rare Drugs: Marijuana Lives: with Family Current Problem List Problem List Problems Medical Problems: (1) Altered mental status Status: Acute (2) Right lower lobe pulmonary infiltrate Status: Acute Current Medications Current Medications Current Medications Sodium Chloride 1,000 ml @ 1,000 mls/hr 1X ONCE IV Last administered on 06/20/18at 15:49; Start 06/20/18 at 15:30; Stop 06/20/18 at 16:29; Status DC Ceftriaxone Sodium (Rocephin) 1 gm 1X ONCE IVP Last administered on 06/20/18at 18:52; Start 06/20/18 at 19:00; Stop 06/20/18 at 19:01; Status DC Ondansetron HCl (Zofran) 4 mg PRN Q8HRS PRN IV NAUSEA/VOMITING; Start 06/20/18 at 19:45; Stop 06/21/18 at 19:44 Morphine Sulfate (Morphine Sulfate) 2 mg PRN Q2HR PRN IV PAIN Last administered on 06/21/18at 08:52; Start 06/20/18 at 19:45; Stop 06/21/18 at 19:44 Acetaminophen (Tylenol) 650 mg PRN Q4HRS PRN PO FEVER; Start 06/20/18 at 19:45; Stop 06/21/18 at 19:44 Active Scripts Active Lantus Solostar (Insulin Glargine,Hum.rec.anlog) 100 Unit/1 Ml Insuln.pen 10 Units SQ QHS 30 Days Carafate (Sucralfate) 1 Gm Tablet 1 Gm PO BIDWMEALS 30 Days Percocet 5-325 Mg Tablet (Oxycodone/Acetaminophen) 1 Each Tablet 1 Tab PO PRN Q6HRS PRN 6 Days Mag-Oxide (Magnesium Oxide) 400 Mg Tablet 1 Tab PO BID 30 Days Cyclobenzaprine Hcl 10 Mg Tablet 10 Mg PO TID Polyethylene Glycol 3350 17 Gm Powd.pack 17 Gm PO PRN DAILY PRN 10 Days Colace (Docusate Sodium) 100 Mg Capsule 100 Mg PO [id number] 28 Days Dicyclomine Hcl 10 Mg Capsule 20 Mg PO PRN QID PRN 14 Days Reported Alprazolam 1 Mg Tablet 1 Tab PO TID PRN Lisinopril 10 Mg Tablet 1 Tab PO DAILY Amitriptyline Hcl 10 Mg Tablet 2 Tab PO QHS Potassium Chloride 20 Meq Tablet.er 20 Meq PO DAILY Levetiracetam 500 Mg Tablet 1 Tab PO BID Gabapentin (Gabapentin) 300 Mg Capsule 300 Mg PO TID Atorvastatin Calcium 80 Mg Tablet 1 Tab PO DAILY Metoprolol Succinate ( Xl ) (Metoprolol Succinate) 100 Mg Tab.er.24h 1 Tab PO DAILY Spironolactone 25 Mg Tablet 1 Tab PO DAILY Amiodarone Hcl 200 Mg Tablet 1 Tab PO DAILY Allergies Allergies: Coded Allergies: Penicillins (Verified Allergy, Intermediate, 01/28/18) onion (Verified Allergy, Intermediate, 01/28/18) Vitals VITALS Vital Signs Date Time Temp Pulse Resp B/P (MAP) Pulse Ox O2 Delivery O2 Flow Rate FiO2 06/21/18 10:55 96 Room Air 06/21/18 07:00 97.0 83 18 156/90 (112) 97.0 Labs Labs Laboratory Tests Test 06/20/18 15:15 06/20/18 15:30 06/20/18 16:00 06/20/18 21:00 White Blood Count 8.7 x10^3/uL (4.0-11.0) Red Blood Count 4.67 x10^6/uL (4.30-5.70) Hemoglobin 13.7 g/dL (13.0-17.5) Hematocrit 41.4 % (39.0-53.0) Mean Corpuscular Volume 89 fL (79-100) Mean Corpuscular Hemoglobin 29 pg (25-35) Mean Corpuscular Hemoglobin Concent 33 g/dL (31-37) Red Cell Distribution Width 14.4 % (11.5-14.5) Platelet Count 148 x10^3/uL (140-400) Neutrophils (%) (Auto) 76 % (31-73) Lymphocytes (%) (Auto) 13 % (24-48) Monocytes (%) (Auto) 9 % (0-9) Eosinophils (%) (Auto) 1 % (0-3) Basophils (%) (Auto) 1 % (0-3) Neutrophils # (Auto) 6.7 x10^3uL (1.8-7.7) Lymphocytes # (Auto) 1.1 x10^3/uL (1.0-4.8) Monocytes # (Auto) 0.8 x10^3/uL (0.0-1.1) Eosinophils # (Auto) 0.1 x10^3/uL (0.0-0.7) Basophils # (Auto) 0.1 x10^3/uL (0.0-0.2) Prothrombin Time 15.2 SEC (11.7-14.0) Prothromb Time International Ratio 1.2 (0.8-1.1) Activated Partial Thromboplast Time 34 SEC (24-38) Urine Collection Type Unknown Urine Color Yellow Urine Clarity Clear Urine pH 5.5 Urine Specific [place] 1.015 Urine Protein Negative mg/dL (NEG-TRACE) Urine Glucose (UA) 250 mg/dL (NEG) Urine Ketones (Stick) Negative mg/dL (NEG) Urine Blood Negative (NEG) Urine Nitrite Negative (NEG) Urine Bilirubin Negative (NEG) Urine Urobilinogen Dipstick 0.2 mg/dL (0.2 mg/dL) Urine Leukocyte Esterase Negative (NEG) Urine RBC 1-2 /HPF (0-2) Urine WBC 0 /HPF (0-4) Urine Squamous Epithelial Cells Few /LPF Urine Bacteria 0 /HPF (0-FEW) Urine Hyaline Casts Few /HPF Urine Mucus Slight /LPF Urine Opiates Screen Pos (NEG) Urine Methadone Screen Neg (NEG) Urine Barbiturates Neg (NEG) Urine Phencyclidine Screen Neg (NEG) Urine Amphetamine/Methamphetamine Pos (NEG) Urine Benzodiazepines Screen Pos (NEG) Urine Cocaine Screen Neg (NEG) Urine Cannabinoids Screen Pos (NEG) Urine Ethyl Alcohol Neg (NEG) Sodium Level 137 mmol/L (136-145) Potassium Level 4.6 mmol/L (3.5-5.1) Chloride Level 100 mmol/L (98-107) Carbon Dioxide Level 30 mmol/L (21-32) Anion Gap 7 (6-14) Blood Urea Nitrogen 26 mg/dL (8-26) Creatinine 1.3 mg/dL (0.7-1.3) Estimated GFR (Cockcroft-Gault) 57.1 BUN/Creatinine Ratio 20 (6-20) Glucose Level 153 mg/dL (70-99) Calcium Level 8.5 mg/dL (8.5-10.1) Magnesium Level 1.4 mg/dL (1.8-2.4) Total Bilirubin 0.6 mg/dL (0.2-1.0) Aspartate Amino Transf (AST/SGOT) 49 U/L (15-37) Alanine Aminotransferase (ALT/SGPT) 48 U/L (16-63) Alkaline Phosphatase 89 U/L (46-116) Creatine Kinase 306 U/L (39-308) Creatine Kinase MB (Mass) 1.8 ng/mL (0.0-3.6) Creatine Kinase MB Relative Index 0.6 % (0-4) Troponin I Quantitative < 0.017 ng/mL (0.000-0.055) VW-Ycd-M-Type Natriuretic Peptide 954 pg/mL (0-124) Total Protein 5.7 g/dL (6.4-8.2) Albumin 3.0 g/dL (3.4-5.0) Albumin/Globulin Ratio 1.1 (1.0-1.7) Lipase 100 U/L (73-393) Thyroid Stimulating Hormone (TSH) 1.918 uIU/mL (0.358-3.74) Salicylates Level 5.4 mg/dL (2.8-20.0) Salicylate Last Dose Date Unknown Salicylate Last Dose Time Unknown Acetaminophen Level < 2 mcg/ml (10-30) Acetaminophen Last Dose Date Unknown Acetaminophen Last Dose Time Unknown Ethyl Alcohol Level < 10 mg/dL (0-10) Glucose (Fingerstick) 160 mg/dL (70-99) Test 06/21/18 03:25 White Blood Count 6.8 x10^3/uL (4.0-11.0) Red Blood Count 4.45 x10^6/uL (4.30-5.70) Hemoglobin 13.0 g/dL (13.0-17.5) Hematocrit 39.5 % (39.0-53.0) Mean Corpuscular Volume 89 fL (79-100) Mean Corpuscular Hemoglobin 29 pg (25-35) Mean Corpuscular Hemoglobin Concent 33 g/dL (31-37) Red Cell Distribution Width 14.5 % (11.5-14.5) Platelet Count 123 x10^3/uL (140-400) Neutrophils (%) (Auto) 72 % (31-73) Lymphocytes (%) (Auto) 17 % (24-48) Monocytes (%) (Auto) 8 % (0-9) Eosinophils (%) (Auto) 2 % (0-3) Basophils (%) (Auto) 1 % (0-3) Neutrophils # (Auto) 4.9 x10^3uL (1.8-7.7) Lymphocytes # (Auto) 1.2 x10^3/uL (1.0-4.8) Monocytes # (Auto) 0.6 x10^3/uL (0.0-1.1) Eosinophils # (Auto) 0.1 x10^3/uL (0.0-0.7) Basophils # (Auto) 0.0 x10^3/uL (0.0-0.2) Sodium Level 133 mmol/L (136-145) Potassium Level 4.4 mmol/L (3.5-5.1) Chloride Level 100 mmol/L (98-107) Carbon Dioxide Level 27 mmol/L (21-32) Anion Gap 6 (6-14) Blood Urea Nitrogen 22 mg/dL (8-26) Creatinine 0.9 mg/dL (0.7-1.3) Estimated GFR (Cockcroft-Gault) 87.3 Glucose Level 142 mg/dL (70-99) Calcium Level 8.9 mg/dL (8.5-10.1) Laboratory Tests Test 06/20/18 15:15 06/20/18 15:30 06/20/18 16:00 06/20/18 21:00 White Blood Count 8.7 x10^3/uL (4.0-11.0) Red Blood Count 4.67 x10^6/uL (4.30-5.70) Hemoglobin 13.7 g/dL (13.0-17.5) Hematocrit 41.4 % (39.0-53.0) Mean Corpuscular Volume 89 fL (79-100) Mean Corpuscular Hemoglobin 29 pg (25-35) Mean Corpuscular Hemoglobin Concent 33 g/dL (31-37) Red Cell Distribution Width 14.4 % (11.5-14.5) Platelet Count 148 x10^3/uL (140-400) Neutrophils (%) (Auto) 76 % (31-73) Lymphocytes (%) (Auto) 13 % (24-48) Monocytes (%) (Auto) 9 % (0-9) Eosinophils (%) (Auto) 1 % (0-3) Basophils (%) (Auto) 1 % (0-3) Neutrophils # (Auto) 6.7 x10^3uL (1.8-7.7) Lymphocytes # (Auto) 1.1 x10^3/uL (1.0-4.8) Monocytes # (Auto) 0.8 x10^3/uL (0.0-1.1) Eosinophils # (Auto) 0.1 x10^3/uL (0.0-0.7) Basophils # (Auto) 0.1 x10^3/uL (0.0-0.2) Prothrombin Time 15.2 SEC (11.7-14.0) Prothromb Time International Ratio 1.2 (0.8-1.1) Activated Partial Thromboplast Time 34 SEC (24-38) Urine Collection Type Unknown Urine Color Yellow Urine Clarity Clear Urine pH 5.5 Urine Specific [place] 1.015 Urine Protein Negative mg/dL (NEG-TRACE) Urine Glucose (UA) 250 mg/dL (NEG) Urine Ketones (Stick) Negative mg/dL (NEG) Urine Blood Negative (NEG) Urine Nitrite Negative (NEG) Urine Bilirubin Negative (NEG) Urine Urobilinogen Dipstick 0.2 mg/dL (0.2 mg/dL) Urine Leukocyte Esterase Negative (NEG) Urine RBC 1-2 /HPF (0-2) Urine WBC 0 /HPF (0-4) Urine Squamous Epithelial Cells Few /LPF Urine Bacteria 0 /HPF (0-FEW) Urine Hyaline Casts Few /HPF Urine Mucus Slight /LPF Urine Opiates Screen Pos (NEG) Urine Methadone Screen Neg (NEG) Urine Barbiturates Neg (NEG) Urine Phencyclidine Screen Neg (NEG) Urine Amphetamine/Methamphetamine Pos (NEG) Urine Benzodiazepines Screen Pos (NEG) Urine Cocaine Screen Neg (NEG) Urine Cannabinoids Screen Pos (NEG) Urine Ethyl Alcohol Neg (NEG) Sodium Level 137 mmol/L (136-145) Potassium Level 4.6 mmol/L (3.5-5.1) Chloride Level 100 mmol/L (98-107) Carbon Dioxide Level 30 mmol/L (21-32) Anion Gap 7 (6-14) Blood Urea Nitrogen 26 mg/dL (8-26) Creatinine 1.3 mg/dL (0.7-1.3) Estimated GFR (Cockcroft-Gault) 57.1 BUN/Creatinine Ratio 20 (6-20) Glucose Level 153 mg/dL (70-99) Calcium Level 8.5 mg/dL (8.5-10.1) Magnesium Level 1.4 mg/dL (1.8-2.4) Total Bilirubin 0.6 mg/dL (0.2-1.0) Aspartate Amino Transf (AST/SGOT) 49 U/L (15-37) Alanine Aminotransferase (ALT/SGPT) 48 U/L (16-63) Alkaline Phosphatase 89 U/L (46-116) Creatine Kinase 306 U/L (39-308) Creatine Kinase MB (Mass) 1.8 ng/mL (0.0-3.6) Creatine Kinase MB Relative Index 0.6 % (0-4) Troponin I Quantitative < 0.017 ng/mL (0.000-0.055) TA-Dvi-Y-Type Natriuretic Peptide 954 pg/mL (0-124) Total Protein 5.7 g/dL (6.4-8.2) Albumin 3.0 g/dL (3.4-5.0) Albumin/Globulin Ratio 1.1 (1.0-1.7) Lipase 100 U/L (73-393) Thyroid Stimulating Hormone (TSH) 1.918 uIU/mL (0.358-3.74) Salicylates Level 5.4 mg/dL (2.8-20.0) Salicylate Last Dose Date Unknown Salicylate Last Dose Time Unknown Acetaminophen Level < 2 mcg/ml (10-30) Acetaminophen Last Dose Date Unknown Acetaminophen Last Dose Time Unknown Ethyl Alcohol Level < 10 mg/dL (0-10) Glucose (Fingerstick) 160 mg/dL (70-99) Test 06/21/18 03:25 White Blood Count 6.8 x10^3/uL (4.0-11.0) Red Blood Count 4.45 x10^6/uL (4.30-5.70) Hemoglobin 13.0 g/dL (13.0-17.5) Hematocrit 39.5 % (39.0-53.0) Mean Corpuscular Volume 89 fL (79-100) Mean Corpuscular Hemoglobin 29 pg (25-35) Mean Corpuscular Hemoglobin Concent 33 g/dL (31-37) Red Cell Distribution Width 14.5 % (11.5-14.5) Platelet Count 123 x10^3/uL (140-400) Neutrophils (%) (Auto) 72 % (31-73) Lymphocytes (%) (Auto) 17 % (24-48) Monocytes (%) (Auto) 8 % (0-9) Eosinophils (%) (Auto) 2 % (0-3) Basophils (%) (Auto) 1 % (0-3) Neutrophils # (Auto) 4.9 x10^3uL (1.8-7.7) Lymphocytes # (Auto) 1.2 x10^3/uL (1.0-4.8) Monocytes # (Auto) 0.6 x10^3/uL (0.0-1.1) Eosinophils # (Auto) 0.1 x10^3/uL (0.0-0.7) Basophils # (Auto) 0.0 x10^3/uL (0.0-0.2) Sodium Level 133 mmol/L (136-145) Potassium Level 4.4 mmol/L (3.5-5.1) Chloride Level 100 mmol/L (98-107) Carbon Dioxide Level 27 mmol/L (21-32) Anion Gap 6 (6-14) Blood Urea Nitrogen 22 mg/dL (8-26) Creatinine 0.9 mg/dL (0.7-1.3) Estimated GFR (Cockcroft-Gault) 87.3 Glucose Level 142 mg/dL (70-99) Calcium Level 8.9 mg/dL (8.5-10.1) DAT CASTANEDA MD Jun 21, 2018 12:02
--- NOTE | 2018-06-21 12:55 | PDOC ---
PROGRESS NOTES Chief Complaint Chief Complaint Altered mental status History of Present Illness History of Present Illness Patient resting comfortably in bed, no apparent distress. Reviewed pictures of right hip bulla with RN. Vitals Vitals Vital Signs Date Time Temp Pulse Resp B/P (MAP) Pulse Ox O2 Delivery O2 Flow Rate FiO2 06/21/18 11:00 97.3 79 18 140/90 (107) 96 Room Air 97.3 Physical Exam General: Alert, No acute distress Heart: Regular rate, Normal S1, Normal S2, No murmurs Lungs: Crackles, Other (symmetric chest expansion) Abdomen: Soft, No tenderness Extremities: No clubbing, No cyanosis Skin: No rashes, No significant lesion Labs LABS Laboratory Tests Test 06/20/18 15:15 06/20/18 15:30 06/20/18 16:00 06/20/18 21:00 White Blood Count 8.7 x10^3/uL (4.0-11.0) Red Blood Count 4.67 x10^6/uL (4.30-5.70) Hemoglobin 13.7 g/dL (13.0-17.5) Hematocrit 41.4 % (39.0-53.0) Mean Corpuscular Volume 89 fL (79-100) Mean Corpuscular Hemoglobin 29 pg (25-35) Mean Corpuscular Hemoglobin Concent 33 g/dL (31-37) Red Cell Distribution Width 14.4 % (11.5-14.5) Platelet Count 148 x10^3/uL (140-400) Neutrophils (%) (Auto) 76 % (31-73) Lymphocytes (%) (Auto) 13 % (24-48) Monocytes (%) (Auto) 9 % (0-9) Eosinophils (%) (Auto) 1 % (0-3) Basophils (%) (Auto) 1 % (0-3) Neutrophils # (Auto) 6.7 x10^3uL (1.8-7.7) Lymphocytes # (Auto) 1.1 x10^3/uL (1.0-4.8) Monocytes # (Auto) 0.8 x10^3/uL (0.0-1.1) Eosinophils # (Auto) 0.1 x10^3/uL (0.0-0.7) Basophils # (Auto) 0.1 x10^3/uL (0.0-0.2) Prothrombin Time 15.2 SEC (11.7-14.0) Prothromb Time International Ratio 1.2 (0.8-1.1) Activated Partial Thromboplast Time 34 SEC (24-38) Urine Collection Type Unknown Urine Color Yellow Urine Clarity Clear Urine pH 5.5 Urine Specific Helm 1.015 Urine Protein Negative mg/dL (NEG-TRACE) Urine Glucose (UA) 250 mg/dL (NEG) Urine Ketones (Stick) Negative mg/dL (NEG) Urine Blood Negative (NEG) Urine Nitrite Negative (NEG) Urine Bilirubin Negative (NEG) Urine Urobilinogen Dipstick 0.2 mg/dL (0.2 mg/dL) Urine Leukocyte Esterase Negative (NEG) Urine RBC 1-2 /HPF (0-2) Urine WBC 0 /HPF (0-4) Urine Squamous Epithelial Cells Few /LPF Urine Bacteria 0 /HPF (0-FEW) Urine Hyaline Casts Few /HPF Urine Mucus Slight /LPF Urine Opiates Screen Pos (NEG) Urine Methadone Screen Neg (NEG) Urine Barbiturates Neg (NEG) Urine Phencyclidine Screen Neg (NEG) Urine Amphetamine/Methamphetamine Pos (NEG) Urine Benzodiazepines Screen Pos (NEG) Urine Cocaine Screen Neg (NEG) Urine Cannabinoids Screen Pos (NEG) Urine Ethyl Alcohol Neg (NEG) Sodium Level 137 mmol/L (136-145) Potassium Level 4.6 mmol/L (3.5-5.1) Chloride Level 100 mmol/L (98-107) Carbon Dioxide Level 30 mmol/L (21-32) Anion Gap 7 (6-14) Blood Urea Nitrogen 26 mg/dL (8-26) Creatinine 1.3 mg/dL (0.7-1.3) Estimated GFR (Cockcroft-Gault) 57.1 BUN/Creatinine Ratio 20 (6-20) Glucose Level 153 mg/dL (70-99) Calcium Level 8.5 mg/dL (8.5-10.1) Magnesium Level 1.4 mg/dL (1.8-2.4) Total Bilirubin 0.6 mg/dL (0.2-1.0) Aspartate Amino Transf (AST/SGOT) 49 U/L (15-37) Alanine Aminotransferase (ALT/SGPT) 48 U/L (16-63) Alkaline Phosphatase 89 U/L (46-116) Creatine Kinase 306 U/L (39-308) Creatine Kinase MB (Mass) 1.8 ng/mL (0.0-3.6) Creatine Kinase MB Relative Index 0.6 % (0-4) Troponin I Quantitative < 0.017 ng/mL (0.000-0.055) PJ-Gbf-B-Type Natriuretic Peptide 954 pg/mL (0-124) Total Protein 5.7 g/dL (6.4-8.2) Albumin 3.0 g/dL (3.4-5.0) Albumin/Globulin Ratio 1.1 (1.0-1.7) Lipase 100 U/L (73-393) Thyroid Stimulating Hormone (TSH) 1.918 uIU/mL (0.358-3.74) Salicylates Level 5.4 mg/dL (2.8-20.0) Salicylate Last Dose Date Unknown Salicylate Last Dose Time Unknown Acetaminophen Level < 2 mcg/ml (10-30) Acetaminophen Last Dose Date Unknown Acetaminophen Last Dose Time Unknown Ethyl Alcohol Level < 10 mg/dL (0-10) Glucose (Fingerstick) 160 mg/dL (70-99) Test 06/21/18 03:25 06/21/18 11:02 White Blood Count 6.8 x10^3/uL (4.0-11.0) Red Blood Count 4.45 x10^6/uL (4.30-5.70) Hemoglobin 13.0 g/dL (13.0-17.5) Hematocrit 39.5 % (39.0-53.0) Mean Corpuscular Volume 89 fL (79-100) Mean Corpuscular Hemoglobin 29 pg (25-35) Mean Corpuscular Hemoglobin Concent 33 g/dL (31-37) Red Cell Distribution Width 14.5 % (11.5-14.5) Platelet Count 123 x10^3/uL (140-400) Neutrophils (%) (Auto) 72 % (31-73) Lymphocytes (%) (Auto) 17 % (24-48) Monocytes (%) (Auto) 8 % (0-9) Eosinophils (%) (Auto) 2 % (0-3) Basophils (%) (Auto) 1 % (0-3) Neutrophils # (Auto) 4.9 x10^3uL (1.8-7.7) Lymphocytes # (Auto) 1.2 x10^3/uL (1.0-4.8) Monocytes # (Auto) 0.6 x10^3/uL (0.0-1.1) Eosinophils # (Auto) 0.1 x10^3/uL (0.0-0.7) Basophils # (Auto) 0.0 x10^3/uL (0.0-0.2) Sodium Level 133 mmol/L (136-145) Potassium Level 4.4 mmol/L (3.5-5.1) Chloride Level 100 mmol/L (98-107) Carbon Dioxide Level 27 mmol/L (21-32) Anion Gap 6 (6-14) Blood Urea Nitrogen 22 mg/dL (8-26) Creatinine 0.9 mg/dL (0.7-1.3) Estimated GFR (Cockcroft-Gault) 87.3 Glucose Level 142 mg/dL (70-99) Calcium Level 8.9 mg/dL (8.5-10.1) Glucose (Fingerstick) 195 mg/dL (70-99) Review of Systems Review of Systems fatigue, headache, recent weight loss Assessment and Plan Assessmemt and Plan Problems Medical Problems: (1) Altered mental status Status: Acute (2) Right lower lobe pulmonary infiltrate Status: Acute Assessment: Pneumonia Metabolic encephalopathy 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 Labs Laboratory Tests Test 06/20/18 15:15 06/20/18 15:30 06/20/18 16:00 06/20/18 21:00 White Blood Count 8.7 x10^3/uL (4.0-11.0) Red Blood Count 4.67 x10^6/uL (4.30-5.70) Hemoglobin 13.7 g/dL (13.0-17.5) Hematocrit 41.4 % (39.0-53.0) Mean Corpuscular Volume 89 fL (79-100) Mean Corpuscular Hemoglobin 29 pg (25-35) Mean Corpuscular Hemoglobin Concent 33 g/dL (31-37) Red Cell Distribution Width 14.4 % (11.5-14.5) Platelet Count 148 x10^3/uL (140-400) Neutrophils (%) (Auto) 76 % (31-73) Lymphocytes (%) (Auto) 13 % (24-48) Monocytes (%) (Auto) 9 % (0-9) Eosinophils (%) (Auto) 1 % (0-3) Basophils (%) (Auto) 1 % (0-3) Neutrophils # (Auto) 6.7 x10^3uL (1.8-7.7) Lymphocytes # (Auto) 1.1 x10^3/uL (1.0-4.8) Monocytes # (Auto) 0.8 x10^3/uL (0.0-1.1) Eosinophils # (Auto) 0.1 x10^3/uL (0.0-0.7) Basophils # (Auto) 0.1 x10^3/uL (0.0-0.2) Prothrombin Time 15.2 SEC (11.7-14.0) Prothromb Time International Ratio 1.2 (0.8-1.1) Activated Partial Thromboplast Time 34 SEC (24-38) Urine Collection Type Unknown Urine Color Yellow Urine Clarity Clear Urine pH 5.5 Urine Specific Helm 1.015 Urine Protein Negative mg/dL (NEG-TRACE) Urine Glucose (UA) 250 mg/dL (NEG) Urine Ketones (Stick) Negative mg/dL (NEG) Urine Blood Negative (NEG) Urine Nitrite Negative (NEG) Urine Bilirubin Negative (NEG) Urine Urobilinogen Dipstick 0.2 mg/dL (0.2 mg/dL) Urine Leukocyte Esterase Negative (NEG) Urine RBC 1-2 /HPF (0-2) Urine WBC 0 /HPF (0-4) Urine Squamous Epithelial Cells Few /LPF Urine Bacteria 0 /HPF (0-FEW) Urine Hyaline Casts Few /HPF Urine Mucus Slight /LPF Urine Opiates Screen Pos (NEG) Urine Methadone Screen Neg (NEG) Urine Barbiturates Neg (NEG) Urine Phencyclidine Screen Neg (NEG) Urine Amphetamine/Methamphetamine Pos (NEG) Urine Benzodiazepines Screen Pos (NEG) Urine Cocaine Screen Neg (NEG) Urine Cannabinoids Screen Pos (NEG) Urine Ethyl Alcohol Neg (NEG) Sodium Level 137 mmol/L (136-145) Potassium Level 4.6 mmol/L (3.5-5.1) Chloride Level 100 mmol/L (98-107) Carbon Dioxide Level 30 mmol/L (21-32) Anion Gap 7 (6-14) Blood Urea Nitrogen 26 mg/dL (8-26) Creatinine 1.3 mg/dL (0.7-1.3) Estimated GFR (Cockcroft-Gault) 57.1 BUN/Creatinine Ratio 20 (6-20) Glucose Level 153 mg/dL (70-99) Calcium Level 8.5 mg/dL (8.5-10.1) Magnesium Level 1.4 mg/dL (1.8-2.4) Total Bilirubin 0.6 mg/dL (0.2-1.0) Aspartate Amino Transf (AST/SGOT) 49 U/L (15-37) Alanine Aminotransferase (ALT/SGPT) 48 U/L (16-63) Alkaline Phosphatase 89 U/L (46-116) Creatine Kinase 306 U/L (39-308) Creatine Kinase MB (Mass) 1.8 ng/mL (0.0-3.6) Creatine Kinase MB Relative Index 0.6 % (0-4) Troponin I Quantitative < 0.017 ng/mL (0.000-0.055) IT-Xyz-X-Type Natriuretic Peptide 954 pg/mL (0-124) Total Protein 5.7 g/dL (6.4-8.2) Albumin 3.0 g/dL (3.4-5.0) Albumin/Globulin Ratio 1.1 (1.0-1.7) Lipase 100 U/L (73-393) Thyroid Stimulating Hormone (TSH) 1.918 uIU/mL (0.358-3.74) Salicylates Level 5.4 mg/dL (2.8-20.0) Salicylate Last Dose Date Unknown Salicylate Last Dose Time Unknown Acetaminophen Level < 2 mcg/ml (10-30) Acetaminophen Last Dose Date Unknown Acetaminophen Last Dose Time Unknown Ethyl Alcohol Level < 10 mg/dL (0-10) Glucose (Fingerstick) 160 mg/dL (70-99) Test 06/21/18 03:25 06/21/18 11:02 White Blood Count 6.8 x10^3/uL (4.0-11.0) Red Blood Count 4.45 x10^6/uL (4.30-5.70) Hemoglobin 13.0 g/dL (13.0-17.5) Hematocrit 39.5 % (39.0-53.0) Mean Corpuscular Volume 89 fL (79-100) Mean Corpuscular Hemoglobin 29 pg (25-35) Mean Corpuscular Hemoglobin Concent 33 g/dL (31-37) Red Cell Distribution Width 14.5 % (11.5-14.5) Platelet Count 123 x10^3/uL (140-400) Neutrophils (%) (Auto) 72 % (31-73) Lymphocytes (%) (Auto) 17 % (24-48) Monocytes (%) (Auto) 8 % (0-9) Eosinophils (%) (Auto) 2 % (0-3) Basophils (%) (Auto) 1 % (0-3) Neutrophils # (Auto) 4.9 x10^3uL (1.8-7.7) Lymphocytes # (Auto) 1.2 x10^3/uL (1.0-4.8) Monocytes # (Auto) 0.6 x10^3/uL (0.0-1.1) Eosinophils # (Auto) 0.1 x10^3/uL (0.0-0.7) Basophils # (Auto) 0.0 x10^3/uL (0.0-0.2) Sodium Level 133 mmol/L (136-145) Potassium Level 4.4 mmol/L (3.5-5.1) Chloride Level 100 mmol/L (98-107) Carbon Dioxide Level 27 mmol/L (21-32) Anion Gap 6 (6-14) Blood Urea Nitrogen 22 mg/dL (8-26) Creatinine 0.9 mg/dL (0.7-1.3) Estimated GFR (Cockcroft-Gault) 87.3 Glucose Level 142 mg/dL (70-99) Calcium Level 8.9 mg/dL (8.5-10.1) Glucose (Fingerstick) 195 mg/dL (70-99) Laboratory Tests Test 06/20/18 15:15 06/20/18 15:30 06/20/18 16:00 06/20/18 21:00 White Blood Count 8.7 x10^3/uL (4.0-11.0) Red Blood Count 4.67 x10^6/uL (4.30-5.70) Hemoglobin 13.7 g/dL (13.0-17.5) Hematocrit 41.4 % (39.0-53.0) Mean Corpuscular Volume 89 fL (79-100) Mean Corpuscular Hemoglobin 29 pg (25-35) Mean Corpuscular Hemoglobin Concent 33 g/dL (31-37) Red Cell Distribution Width 14.4 % (11.5-14.5) Platelet Count 148 x10^3/uL (140-400) Neutrophils (%) (Auto) 76 % (31-73) Lymphocytes (%) (Auto) 13 % (24-48) Monocytes (%) (Auto) 9 % (0-9) Eosinophils (%) (Auto) 1 % (0-3) Basophils (%) (Auto) 1 % (0-3) Neutrophils # (Auto) 6.7 x10^3uL (1.8-7.7) Lymphocytes # (Auto) 1.1 x10^3/uL (1.0-4.8) Monocytes # (Auto) 0.8 x10^3/uL (0.0-1.1) Eosinophils # (Auto) 0.1 x10^3/uL (0.0-0.7) Basophils # (Auto) 0.1 x10^3/uL (0.0-0.2) Prothrombin Time 15.2 SEC (11.7-14.0) Prothromb Time International Ratio 1.2 (0.8-1.1) Activated Partial Thromboplast Time 34 SEC (24-38) Urine Collection Type Unknown Urine Color Yellow Urine Clarity Clear Urine pH 5.5 Urine Specific Helm 1.015 Urine Protein Negative mg/dL (NEG-TRACE) Urine Glucose (UA) 250 mg/dL (NEG) Urine Ketones (Stick) Negative mg/dL (NEG) Urine Blood Negative (NEG) Urine Nitrite Negative (NEG) Urine Bilirubin Negative (NEG) Urine Urobilinogen Dipstick 0.2 mg/dL (0.2 mg/dL) Urine Leukocyte Esterase Negative (NEG) Urine RBC 1-2 /HPF (0-2) Urine WBC 0 /HPF (0-4) Urine Squamous Epithelial Cells Few /LPF Urine Bacteria 0 /HPF (0-FEW) Urine Hyaline Casts Few /HPF Urine Mucus Slight /LPF Urine Opiates Screen Pos (NEG) Urine Methadone Screen Neg (NEG) Urine Barbiturates Neg (NEG) Urine Phencyclidine Screen Neg (NEG) Urine Amphetamine/Methamphetamine Pos (NEG) Urine Benzodiazepines Screen Pos (NEG) Urine Cocaine Screen Neg (NEG) Urine Cannabinoids Screen Pos (NEG) Urine Ethyl Alcohol Neg (NEG) Sodium Level 137 mmol/L (136-145) Potassium Level 4.6 mmol/L (3.5-5.1) Chloride Level 100 mmol/L (98-107) Carbon Dioxide Level 30 mmol/L (21-32) Anion Gap 7 (6-14) Blood Urea Nitrogen 26 mg/dL (8-26) Creatinine 1.3 mg/dL (0.7-1.3) Estimated GFR (Cockcroft-Gault) 57.1 BUN/Creatinine Ratio 20 (6-20) Glucose Level 153 mg/dL (70-99) Calcium Level 8.5 mg/dL (8.5-10.1) Magnesium Level 1.4 mg/dL (1.8-2.4) Total Bilirubin 0.6 mg/dL (0.2-1.0) Aspartate Amino Transf (AST/SGOT) 49 U/L (15-37) Alanine Aminotransferase (ALT/SGPT) 48 U/L (16-63) Alkaline Phosphatase 89 U/L (46-116) Creatine Kinase 306 U/L (39-308) Creatine Kinase MB (Mass) 1.8 ng/mL (0.0-3.6) Creatine Kinase MB Relative Index 0.6 % (0-4) Troponin I Quantitative < 0.017 ng/mL (0.000-0.055) HJ-Uoa-E-Type Natriuretic Peptide 954 pg/mL (0-124) Total Protein 5.7 g/dL (6.4-8.2) Albumin 3.0 g/dL (3.4-5.0) Albumin/Globulin Ratio 1.1 (1.0-1.7) Lipase 100 U/L (73-393) Thyroid Stimulating Hormone (TSH) 1.918 uIU/mL (0.358-3.74) Salicylates Level 5.4 mg/dL (2.8-20.0) Salicylate Last Dose Date Unknown Salicylate Last Dose Time Unknown Acetaminophen Level < 2 mcg/ml (10-30) Acetaminophen Last Dose Date Unknown Acetaminophen Last Dose Time Unknown Ethyl Alcohol Level < 10 mg/dL (0-10) Glucose (Fingerstick) 160 mg/dL (70-99) Test 06/21/18 03:25 06/21/18 11:02 White Blood Count 6.8 x10^3/uL (4.0-11.0) Red Blood Count 4.45 x10^6/uL (4.30-5.70) Hemoglobin 13.0 g/dL (13.0-17.5) Hematocrit 39.5 % (39.0-53.0) Mean Corpuscular Volume 89 fL (79-100) Mean Corpuscular Hemoglobin 29 pg (25-35) Mean Corpuscular Hemoglobin Concent 33 g/dL (31-37) Red Cell Distribution Width 14.5 % (11.5-14.5) Platelet Count 123 x10^3/uL (140-400) Neutrophils (%) (Auto) 72 % (31-73) Lymphocytes (%) (Auto) 17 % (24-48) Monocytes (%) (Auto) 8 % (0-9) Eosinophils (%) (Auto) 2 % (0-3) Basophils (%) (Auto) 1 % (0-3) Neutrophils # (Auto) 4.9 x10^3uL (1.8-7.7) Lymphocytes # (Auto) 1.2 x10^3/uL (1.0-4.8) Monocytes # (Auto) 0.6 x10^3/uL (0.0-1.1) Eosinophils # (Auto) 0.1 x10^3/uL (0.0-0.7) Basophils # (Auto) 0.0 x10^3/uL (0.0-0.2) Sodium Level 133 mmol/L (136-145) Potassium Level 4.4 mmol/L (3.5-5.1) Chloride Level 100 mmol/L (98-107) Carbon Dioxide Level 27 mmol/L (21-32) Anion Gap 6 (6-14) Blood Urea Nitrogen 22 mg/dL (8-26) Creatinine 0.9 mg/dL (0.7-1.3) Estimated GFR (Cockcroft-Gault) 87.3 Glucose Level 142 mg/dL (70-99) Calcium Level 8.9 mg/dL (8.5-10.1) Glucose (Fingerstick) 195 mg/dL (70-99) Medications Current Medications Sodium Chloride 1,000 ml @ 1,000 mls/hr 1X ONCE IV Last administered on 06/20/18at 15:49; Start 06/20/18 at 15:30; Stop 06/20/18 at 16:29; Status DC Ceftriaxone Sodium (Rocephin) 1 gm 1X ONCE IVP Last administered on 06/20/18at 18:52; Start 06/20/18 at 19:00; Stop 06/20/18 at 19:01; Status DC Ondansetron HCl (Zofran) 4 mg PRN Q8HRS PRN IV NAUSEA/VOMITING; Start 06/20/18 at 19:45; Stop 06/21/18 at 19:44 Morphine Sulfate (Morphine Sulfate) 2 mg PRN Q2HR PRN IV PAIN Last administered on 06/21/18at 08:52; Start 06/20/18 at 19:45; Stop 06/21/18 at 19:44 Acetaminophen (Tylenol) 650 mg PRN Q4HRS PRN PO FEVER; Start 06/20/18 at 19:45; Stop 06/21/18 at 19:44 Enoxaparin Sodium (Lovenox 40mg Syringe) 40 mg Q24H SQ ; Start 06/21/18 at 16:00 Active Scripts Active Lantus Solostar (Insulin Glargine,Hum.rec.anlog) 100 Unit/1 Ml Insuln.pen 10 Un its SQ QHS 30 Days Carafate (Sucralfate) 1 Gm Tablet 1 Gm PO BIDWMEALS 30 Days Percocet 5-325 Mg Tablet (Oxycodone/Acetaminophen) 1 Each Tablet 1 Tab PO PRN Q6HRS PRN 6 Days Mag-Oxide (Magnesium Oxide) 400 Mg Tablet 1 Tab PO BID 30 Days Cyclobenzaprine Hcl 10 Mg Tablet 10 Mg PO TID Polyethylene Glycol 3350 17 Gm Powd.pack 17 Gm PO PRN DAILY PRN 10 Days Colace (Docusate Sodium) 100 Mg Capsule 100 Mg PO [id number] 28 Days Dicyclomine Hcl 10 Mg Capsule 20 Mg PO PRN QID PRN 14 Days Reported Alprazolam 1 Mg Tablet 1 Tab PO TID PRN Lisinopril 10 Mg Tablet 1 Tab PO DAILY Amitriptyline Hcl 10 Mg Tablet 2 Tab PO QHS Potassium Chloride 20 Meq Tablet.er 20 Meq PO DAILY Levetiracetam 500 Mg Tablet 1 Tab PO BID Gabapentin (Gabapentin) 300 Mg Capsule 300 Mg PO TID Atorvastatin Calcium 80 Mg Tablet 1 Tab PO DAILY Metoprolol Succinate ( Xl ) (Metoprolol Succinate) 100 Mg Tab.er.24h 1 Tab PO DAILY Spironolactone 25 Mg Tablet 1 Tab PO DAILY Amiodarone Hcl 200 Mg Tablet 1 Tab PO DAILY Vitals/I & O Vital Sign - Last 24 Hours 06/20/18 06/20/18 06/20/18 06/20/18 15:04 15:51 16:42 17:42 Temp 97.7 97.7 Pulse 69 68 68 68 Resp 16 14 16 14 B/P (MAP) 105/68 (80) Pulse Ox 99 98 98 97 O2 Delivery Room Air 06/20/18 06/20/18 06/20/18 06/20/18 18:31 19:00 19:30 19:45 Temp 97.9 97.9 Pulse 67 66 66 65 Resp 18 18 18 20 B/P (MAP) 145/93 (110) Pulse Ox 97 97 97 100 O2 Delivery Room Air 06/20/18 06/21/18 06/21/18 06/21/18 23:00 00:32 01:17 03:00 Temp 98.3 99.4 98.3 99.4 Pulse 72 76 Resp 20 20 B/P (MAP) 140/87 (104) 132/81 (98) Pulse Ox 96 97 O2 Delivery Room Air Room Air Room Air Room Air 06/21/18 06/21/18 06/21/18 06/21/18 07:00 08:15 08:52 10:55 Temp 97.0 97.0 Pulse 83 Resp 18 B/P (MAP) 156/90 (112) Pulse Ox 96 96 O2 Delivery Room Air Room Air Room Air Room Air 06/21/18 11:00 Temp 97.3 97.3 Pulse 79 Resp 18 B/P (MAP) 140/90 (107) Pulse Ox 96 O2 Delivery Room Air Intake and Output 06/20/18 06/20/18 06/21/18 14:59 22:59 06:59 Intake Total 100 ml 800 ml Output Total 400 ml Balance 100 ml 400 ml DEL ANGULO III DO Jun 21, 2018 12:55
[2018-06-21] MEDS ORDERED: IOHEXOL 240 MG/ML 50ML VIAL. PO ONE (13:15)
[2018-06-21] MEDS ORDERED: IOHEXOL 300 MG/ML 100ML VIAL. IV ONE (13:30)
[2018-06-21] MEDS ORDERED: CONTRAST GIVEN. MC PRN (13:30)
[2018-06-21 15:00] VITALS: BP 149/88
--- NOTE | 2018-06-21 15:22 | RAD ---
CT CHEST ABD PELVIS W/CONTRAST Indication: 100 pound weight loss in 6 months Technique: Postcontrast CT imaging was performed of the chest abdomen pelvis, multiplanar reconstruction images submitted. Oral contrast was also given. One or more of the following individualized dose reduction techniques were utilized for this examination: 1. Automated exposure control 2. Adjustment of the mA and/or kV according to patient size 3. Use of iterative reconstruction technique. Comparison: Chest CTA February 27, [address] abdomen pelvis February 11, 2018; chest CT February 09, 2018 CHEST: Findings: There is now infiltrate posteriorly of the right middle lobe, somewhat nodular morphology. There is again some reticular density of the right lower lobe and also mild density with bronchiectasis posteriorly of the right upper lobe fairly similar in appearance. There is also mild likely fibrotic change of the lingula and left lower lobe. There is no pneumothorax or significant pleural fluid. There is no pericardial effusion. There is coronary calcification. There has been a median sternotomy. Thoracic aortic caliber is within normal limits, no intraluminal flap. There is some mediastinal nodes largest pretracheal node borderline about 1 cm, as fairly similar in size. There is no abnormality visualized thyroid gland. Thoracic vertebral body stature is maintained. IMPRESSION: 1. There is now infiltrate posteriorly of the right middle lobe, slightly nodular morphology for which short-term follow-up after treatment advised such as within 2 months. There is other likely fibrotic change of the bilateral hemithoraces. 2. There has been median sternotomy. There is coronary calcification. 3. There is borderline enlarged pretracheal node as seen previously. Abdomen pelvis: Findings No new abnormality is identified of the liver, spleen, pancreas. There is no adrenal nodularity. There has been cholecystectomy. Both kidneys enhance, no hydronephrosis. There is some atherosclerotic calcification abdominal aorta and iliac arteries. Segment of small bowel near anastomotic site in the right pelvis is somewhat prominent about 3.5 cm in caliber although other segments of the small bowel are not significantly dilated. There is no colonic dilatation. There is no free air or significant free fluid. There is retained stool variably in the colon. No significantly enlarged nodes are identified. There is degenerative disc disease L4-5. There is [id number] narrowing of the left L4-5 neural foramen. There is facet degenerative change greater inferiorly of the lumbar spine. IMPRESSION: 1. There is segmental mild dilatation of the distal small small bowel near anastomotic site in the right lower quadrant although remainder of the bowel is not dilated. Electronically signed by: Kayode Campos MD (06/21/2018 3:19 PM) [facility]
[2018-06-21] MEDS: ENOXAPARIN 40 MG/0.4 ML SYRINGE. SQ SCH (15:34)
--- NOTE | 2018-06-21 16:43 | PDOC ---
PULMONARY PROGRESS NOTES Vitals Vital Signs Date Time Temp Pulse Resp B/P (MAP) Pulse Ox O2 Delivery O2 Flow Rate FiO2 06/21/18 16:13 98 Room Air 06/21/18 15:00 96.8 79 16 149/88 (108) 96.8 Lungs: Crackles, Other (symmetric chest expansion) Cardiovascular: S1 Abdomen: Soft Extremities: No Edema Labs Laboratory Tests Test 06/20/18 15:15 06/20/18 15:30 06/20/18 16:00 06/20/18 21:00 White Blood Count 8.7 x10^3/uL (4.0-11.0) Red Blood Count 4.67 x10^6/uL (4.30-5.70) Hemoglobin 13.7 g/dL (13.0-17.5) Hematocrit 41.4 % (39.0-53.0) Mean Corpuscular Volume 89 fL (79-100) Mean Corpuscular Hemoglobin 29 pg (25-35) Mean Corpuscular Hemoglobin Concent 33 g/dL (31-37) Red Cell Distribution Width 14.4 % (11.5-14.5) Platelet Count 148 x10^3/uL (140-400) Neutrophils (%) (Auto) 76 % (31-73) Lymphocytes (%) (Auto) 13 % (24-48) Monocytes (%) (Auto) 9 % (0-9) Eosinophils (%) (Auto) 1 % (0-3) Basophils (%) (Auto) 1 % (0-3) Neutrophils # (Auto) 6.7 x10^3uL (1.8-7.7) Lymphocytes # (Auto) 1.1 x10^3/uL (1.0-4.8) Monocytes # (Auto) 0.8 x10^3/uL (0.0-1.1) Eosinophils # (Auto) 0.1 x10^3/uL (0.0-0.7) Basophils # (Auto) 0.1 x10^3/uL (0.0-0.2) Prothrombin Time 15.2 SEC (11.7-14.0) Prothromb Time International Ratio 1.2 (0.8-1.1) Activated Partial Thromboplast Time 34 SEC (24-38) Urine Collection Type Unknown Urine Color Yellow Urine Clarity Clear Urine pH 5.5 Urine Specific [place] 1.015 Urine Protein Negative mg/dL (NEG-TRACE) Urine Glucose (UA) 250 mg/dL (NEG) Urine Ketones (Stick) Negative mg/dL (NEG) Urine Blood Negative (NEG) Urine Nitrite Negative (NEG) Urine Bilirubin Negative (NEG) Urine Urobilinogen Dipstick 0.2 mg/dL (0.2 mg/dL) Urine Leukocyte Esterase Negative (NEG) Urine RBC 1-2 /HPF (0-2) Urine WBC 0 /HPF (0-4) Urine Squamous Epithelial Cells Few /LPF Urine Bacteria 0 /HPF (0-FEW) Urine Hyaline Casts Few /HPF Urine Mucus Slight /LPF Urine Opiates Screen Pos (NEG) Urine Methadone Screen Neg (NEG) Urine Barbiturates Neg (NEG) Urine Phencyclidine Screen Neg (NEG) Urine Amphetamine/Methamphetamine Pos (NEG) Urine Benzodiazepines Screen Pos (NEG) Urine Cocaine Screen Neg (NEG) Urine Cannabinoids Screen Pos (NEG) Urine Ethyl Alcohol Neg (NEG) Sodium Level 137 mmol/L (136-145) Potassium Level 4.6 mmol/L (3.5-5.1) Chloride Level 100 mmol/L (98-107) Carbon Dioxide Level 30 mmol/L (21-32) Anion Gap 7 (6-14) Blood Urea Nitrogen 26 mg/dL (8-26) Creatinine 1.3 mg/dL (0.7-1.3) Estimated GFR (Cockcroft-Gault) 57.1 BUN/Creatinine Ratio 20 (6-20) Glucose Level 153 mg/dL (70-99) Calcium Level 8.5 mg/dL (8.5-10.1) Magnesium Level 1.4 mg/dL (1.8-2.4) Total Bilirubin 0.6 mg/dL (0.2-1.0) Aspartate Amino Transf (AST/SGOT) 49 U/L (15-37) Alanine Aminotransferase (ALT/SGPT) 48 U/L (16-63) Alkaline Phosphatase 89 U/L (46-116) Creatine Kinase 306 U/L (39-308) Creatine Kinase MB (Mass) 1.8 ng/mL (0.0-3.6) Creatine Kinase MB Relative Index 0.6 % (0-4) Troponin I Quantitative < 0.017 ng/mL (0.000-0.055) PN-[id number]-[id number]-Type Natriuretic Peptide 954 pg/mL (0-124) Total Protein 5.7 g/dL (6.4-8.2) Albumin 3.0 g/dL (3.4-5.0) Albumin/Globulin Ratio 1.1 (1.0-1.7) Lipase 100 U/L (73-393) Thyroid Stimulating Hormone (TSH) 1.918 uIU/mL (0.358-3.74) Salicylates Level 5.4 mg/dL (2.8-20.0) Salicylate Last Dose Date Unknown Salicylate Last Dose Time Unknown Acetaminophen Level < 2 mcg/ml (10-30) Acetaminophen Last Dose Date Unknown Acetaminophen Last Dose Time Unknown Ethyl Alcohol Level < 10 mg/dL (0-10) Glucose (Fingerstick) 160 mg/dL (70-99) Test 06/21/18 03:25 06/21/18 11:02 White Blood Count 6.8 x10^3/uL (4.0-11.0) Red Blood Count 4.45 x10^6/uL (4.30-5.70) Hemoglobin 13.0 g/dL (13.0-17.5) Hematocrit 39.5 % (39.0-53.0) Mean Corpuscular Volume 89 fL (79-100) Mean Corpuscular Hemoglobin 29 pg (25-35) Mean Corpuscular Hemoglobin Concent 33 g/dL (31-37) Red Cell Distribution Width 14.5 % (11.5-14.5) Platelet Count 123 x10^3/uL (140-400) Neutrophils (%) (Auto) 72 % (31-73) Lymphocytes (%) (Auto) 17 % (24-48) Monocytes (%) (Auto) 8 % (0-9) Eosinophils (%) (Auto) 2 % (0-3) Basophils (%) (Auto) 1 % (0-3) Neutrophils # (Auto) 4.9 x10^3uL (1.8-7.7) Lymphocytes # (Auto) 1.2 x10^3/uL (1.0-4.8) Monocytes # (Auto) 0.6 x10^3/uL (0.0-1.1) Eosinophils # (Auto) 0.1 x10^3/uL (0.0-0.7) Basophils # (Auto) 0.0 x10^3/uL (0.0-0.2) Sodium Level 133 mmol/L (136-145) Potassium Level 4.4 mmol/L (3.5-5.1) Chloride Level 100 mmol/L (98-107) Carbon Dioxide Level 27 mmol/L (21-32) Anion Gap 6 (6-14) Blood Urea Nitrogen 22 mg/dL (8-26) Creatinine 0.9 mg/dL (0.7-1.3) Estimated GFR (Cockcroft-Gault) 87.3 Glucose Level 142 mg/dL (70-99) Calcium Level 8.9 mg/dL (8.5-10.1) Lactate Dehydrogenase 219 U/L (85-227) Glucose (Fingerstick) 195 mg/dL (70-99) Laboratory Tests Test 06/20/18 21:00 06/21/18 03:25 06/21/18 11:02 Glucose (Fingerstick) 160 mg/dL (70-99) 195 mg/dL (70-99) White Blood Count 6.8 x10^3/uL (4.0-11.0) Red Blood Count 4.45 x10^6/uL (4.30-5.70) Hemoglobin 13.0 g/dL (13.0-17.5) Hematocrit 39.5 % (39.0-53.0) Mean Corpuscular Volume 89 fL (79-100) Mean Corpuscular Hemoglobin 29 pg (25-35) Mean Corpuscular Hemoglobin Concent 33 g/dL (31-37) Red Cell Distribution Width 14.5 % (11.5-14.5) Platelet Count 123 x10^3/uL (140-400) Neutrophils (%) (Auto) 72 % (31-73) Lymphocytes (%) (Auto) 17 % (24-48) Monocytes (%) (Auto) 8 % (0-9) Eosinophils (%) (Auto) 2 % (0-3) Basophils (%) (Auto) 1 % (0-3) Neutrophils # (Auto) 4.9 x10^3uL (1.8-7.7) Lymphocytes # (Auto) 1.2 x10^3/uL (1.0-4.8) Monocytes # (Auto) 0.6 x10^3/uL (0.0-1.1) Eosinophils # (Auto) 0.1 x10^3/uL (0.0-0.7) Basophils # (Auto) 0.0 x10^3/uL (0.0-0.2) Sodium Level 133 mmol/L (136-145) Potassium Level 4.4 mmol/L (3.5-5.1) Chloride Level 100 mmol/L (98-107) Carbon Dioxide Level 27 mmol/L (21-32) Anion Gap 6 (6-14) Blood Urea Nitrogen 22 mg/dL (8-26) Creatinine 0.9 mg/dL (0.7-1.3) Estimated GFR (Cockcroft-Gault) 87.3 Glucose Level 142 mg/dL (70-99) Calcium Level 8.9 mg/dL (8.5-10.1) Lactate Dehydrogenase 219 U/L (85-227) Medications Active Scripts Medications Dose Route/Sig Max Daily Dose Days Date Category Lantus Solostar (Insulin Glargine,Hum.rec.anlog) 100 Unit/1 Ml Insuln.pen 10 Units SQ QHS 30 03/23/18 Rx Carafate (Sucralfate) 1 Gm Tablet 1 Gm PO BIDWMEALS 30 03/23/18 Rx Percocet 5-325 Mg Tablet (Oxycodone/Acetaminophen) 1 Each Tablet 1 Tab PO PRN Q6HRS PRN 6 03/23/18 Rx Mag-Oxide (Magnesium Oxide) 400 Mg Tablet 1 Tab PO BID 30 03/23/18 Rx Cyclobenzaprine Hcl 10 Mg Tablet 10 Mg PO TID 03/12/18 Rx Alprazolam 1 Mg Tablet 1 Tab PO TID PRN 02/27/18 Reported Polyethylene Glycol 3350 17 Gm Powd.pack 17 Gm PO PRN DAILY PRN 10 02/12/18 Rx Colace (Docusate Sodium) 100 Mg Capsule 100 Mg PO [id number] 28 02/12/18 Rx Dicyclomine Hcl 10 Mg Capsule 20 Mg PO PRN QID PRN 14 01/29/18 Rx Lisinopril 10 Mg Tablet 1 Tab PO DAILY 01/27/18 Reported Amitriptyline Hcl 10 Mg Tablet 2 Tab PO QHS 01/27/18 Reported Potassium Chloride 20 Meq Tablet.er 20 Meq PO DAILY 12/4/18 Reported Levetiracetam 500 Mg Tablet 1 Tab PO BID 01/27/18 Reported Gabapentin (Gabapentin) 300 Mg Capsule 300 Mg PO TID 01/27/18 Reported Atorvastatin Calcium 80 Mg Tablet 1 Tab PO DAILY 01/27/18 Reported Metoprolol Succinate ( Xl ) (Metoprolol Succinate) 100 Mg Tab.er.24h 1 Tab PO DAILY 01/27/18 Reported Spironolactone 25 Mg Tablet 1 Tab PO DAILY 09/25/16 Reported Amiodarone Hcl 200 Mg Tablet 1 Tab PO DAILY 09/25/16 Reported Impression . DICTATED AGREE WITH TREATMENT FOR PNEUMONIA REPEAT CT IN 2 MONTHS RC ELIZALDE MD Jun 21, 2018 16:43
[2018-06-21] MEDS: cefTRIAXone IV Push 1 GM VIAL. IVP SCH (18:33)
[2018-06-21 19:00] VITALS: BP 138/96
--- NOTE | 2018-06-21 20:01 | PDOC2 ---
CONSULT Date of Consult Date of Consult DATE: 06/21/18 TIME: 19:48 Reason for Consult Reason for Consult: right hip Referring Physician Referring Physician: Perri Identification/Chief Complaint Chief Complaint "You woke me up! I was trying to sleep! Every one keeps waking me up and I haven't slept for 2 days!" Source Source: Chart review, Patient History of Present Illness Reason for Visit: 57-year-old man who seemed very annoyed that I was waking him up at 7:30 PM because he was trying to rest. He reports right hip pain and popping. He says he has a blister on his hip but denies any known injury. He says his feet go numb on a regular basis. Past Medical History Cardiovascular: CAD Pulmonary: Bronchitis CENTRAL NERVOUS SYSTEM: CVA, Periperal neuropathy GI: Other Heme/Onc: No pertinent hx Hepatobiliary: No pertinent hx Musculoskeletal: Osteoarthritis Rheumatologic: No pertinent hx Infectious disease: No pertinent hx Renal/: No pertinent hx Past Surgical History Past Surgical History: Pacemaker, Cholecystectomy, CABG, Cystoscopy, Tonsillectomy Family History Family History: Coronary Artery Disease Social History ALCOHOL: rare Drugs: Marijuana Lives: with Family Current Problem List Problem List Problems Medical Problems: (1) Altered mental status Status: Acute (2) Right lower lobe pulmonary infiltrate Status: Acute Current Medications Current Medications Current Medications Sodium Chloride 1,000 ml @ 1,000 mls/hr 1X ONCE IV Last administered on 06/20/18at 15:49; Start 06/20/18 at 15:30; Stop 06/20/18 at 16:29; Status DC Ceftriaxone Sodium (Rocephin) 1 gm 1X ONCE IVP Last administered on 06/20/18at 18:52; Start 06/20/18 at 19:00; Stop 06/20/18 at 19:01; Status DC Ondansetron HCl (Zofran) 4 mg PRN Q8HRS PRN IV NAUSEA/VOMITING Last ad ministered on 06/21/18at 13:52; Start 06/20/18 at 19:45; Stop 06/21/18 at 19:44; Status DC Morphine Sulfate (Morphine Sulfate) 2 mg PRN Q2HR PRN IV PAIN Last administered on 06/21/18at 18:33; Start 06/20/18 at 19:45; Stop 06/21/18 at 19:44; Status DC Acetaminophen (Tylenol) 650 mg PRN Q4HRS PRN PO FEVER; Start 06/20/18 at 19:45; Stop 06/21/18 at 19:44; Status DC Enoxaparin Sodium (Lovenox 40mg Syringe) 40 mg Q24H SQ Last administered on 06/21/18at 15:34; Start 06/21/18 at 16:00 Ceftriaxone Sodium (Rocephin) 1 gm Q24H IVP Last administered on 06/21/18at 18:33; Start 06/21/18 at 19:00 Iohexol (Omnipaque 300 Mg/ml) 75 ml 1X ONCE IV Last administered on 06/21/18at 14:26; Start 06/21/18 at 13:30; Stop 06/21/18 at 13:31; Status DC Iohexol (Omnipaque 240 Mg/ml) 30 ml 1X ONCE PO Last administered on 06/21/18at 13:15; Start 06/21/18 at 13:15; Stop 06/21/18 at 13:17; Status DC Info (CONTRAST GIVEN -- Rx MONITORING) 1 each PRN DAILY PRN MC SEE COMMENTS; Start 06/21/18 at 13:30; Stop 06/23/18 at 13:29 Lactobacillus Rhamnosus (Culturelle) 1 cap BID PO ; Start 06/21/18 at 21:00 Active Scripts Active Lantus Solostar (Insulin Glargine,Hum.rec.anlog) 100 Unit/1 Ml Insuln.pen 10 Units SQ QHS 30 Days Carafate (Sucralfate) 1 Gm Tablet 1 Gm PO BIDWMEALS 30 Days Percocet 5-325 Mg Tablet (Oxycodone/Acetaminophen) 1 Each Tablet 1 Tab PO PRN Q6HRS PRN 6 Days Mag-Oxide (Magnesium Oxide) 400 Mg Tablet 1 Tab PO BID 30 Days Cyclobenzaprine Hcl 10 Mg Tablet 10 Mg PO TID Polyethylene Glycol 3350 17 Gm Powd.pack 17 Gm PO PRN DAILY PRN 10 Days Colace (Docusate Sodium) 100 Mg Capsule 100 Mg PO BID66 28 Days Dicyclomine Hcl 10 Mg Capsule 20 Mg PO PRN QID PRN 14 Days Reported Alprazolam 1 Mg Tablet 1 Tab PO TID PRN Lisinopril 10 Mg Tablet 1 Tab PO DAILY Amitriptyline Hcl 10 Mg Tablet 2 Tab PO QHS Potassium Chloride 20 Meq Tablet.er 20 Meq PO DAILY Levetiracetam 500 Mg Tablet 1 Tab PO BID Gabapentin (Gabapentin) 300 Mg Capsule 300 Mg PO TID Atorvastatin Calcium 80 Mg Tablet 1 Tab PO DAILY Metoprolol Succinate ( Xl ) (Metoprolol Succinate) 100 Mg Tab.er.24h 1 Tab PO DAILY Spironolactone 25 Mg Tablet 1 Tab PO DAILY Amiodarone Hcl 200 Mg Tablet 1 Tab PO DAILY Allergies Allergies: Coded Allergies: Penicillins (Verified Allergy, Intermediate, 01/28/18) onion (Verified Allergy, Intermediate, 01/28/18) ROS Musculoskeletal: Yes Joint Pain Neurological: Yes Numbness/Tingling Physical Exam General: Alert, Other (seemed really annoyed when I asked questions or tried to examine him. He did not even roll onto his back, but stayed rolled on his side facing away from me and answered questions from there.) HEENT: Atraumatic Extremities: Other (the right hip has a aqua cell foam dressing which I lifted up to observe a blister that is approximately 8 x 8 cm. It has serous but not bloody fluid. Unclear etiology. Mild hip pain with range of motion but the blister 10 cm distal to the greater trochanter, not over the greater trochanter, an unusual location for traumatic contact. ) Neuro: Other (he reports decreased light touch sensation in both feet, but was able to dorsiflex the toes and feet bilaterally. He remained in bed during the examination, and in fact did not even roll over.) MUSCULOSKELETAL: Abnormal exam of right (hip as above) Vitals VITALS Vital Signs Date Time Temp Pulse Resp B/P (MAP) Pulse Ox O2 Delivery O2 Flow Rate FiO2 06/21/18 19:03 98 Room Air 06/21/18 15:00 96.8 79 16 149/88 (108) 96.8 Labs Labs Laboratory Tests Test 06/20/18 15:15 06/20/18 15:30 06/20/18 16:00 06/20/18 21:00 White Blood Count 8.7 x10^3/uL (4.0-11.0) Red Blood Count 4.67 x10^6/uL (4.30-5.70) Hemoglobin 13.7 g/dL (13.0-17.5) Hematocrit 41.4 % (39.0-53.0) Mean Corpuscular Volume 89 fL (79-100) Mean Corpuscular Hemoglobin 29 pg (25-35) Mean Corpuscular Hemoglobin Concent 33 g/dL (31-37) Red Cell Distribution Width 14.4 % (11.5-14.5) Platelet Count 148 x10^3/uL (140-400) Neutrophils (%) (Auto) 76 % (31-73) Lymphocytes (%) (Auto) 13 % (24-48) Monocytes (%) (Auto) 9 % (0-9) Eosinophils (%) (Auto) 1 % (0-3) Basophils (%) (Auto) 1 % (0-3) Neutrophils # (Auto) 6.7 x10^3uL (1.8-7.7) Lymphocytes # (Auto) 1.1 x10^3/uL (1.0-4.8) Monocytes # (Auto) 0.8 x10^3/uL (0.0-1.1) Eosinophils # (Auto) 0.1 x10^3/uL (0.0-0.7) Basophils # (Auto) 0.1 x10^3/uL (0.0-0.2) Prothrombin Time 15.2 SEC (11.7-14.0) Prothromb Time International Ratio 1.2 (0.8-1.1) Activated Partial Thromboplast Time 34 SEC (24-38) Urine Collection Type Unknown Urine Color Yellow Urine Clarity Clear Urine pH 5.5 Urine Specific [place] 1.015 Urine Protein Negative mg/dL (NEG-TRACE) Urine Glucose (UA) 250 mg/dL (NEG) Urine Ketones (Stick) Negative mg/dL (NEG) Urine Blood Negative (NEG) Urine Nitrite Negative (NEG) Urine Bilirubin Negative (NEG) Urine Urobilinogen Dipstick 0.2 mg/dL (0.2 mg/dL) Urine Leukocyte Esterase Negative (NEG) Urine RBC 1-2 /HPF (0-2) Urine WBC 0 /HPF (0-4) Urine Squamous Epithelial Cells Few /LPF Urine Bacteria 0 /HPF (0-FEW) Urine Hyaline Casts Few /HPF Urine Mucus Slight /LPF Urine Opiates Screen Pos (NEG) Urine Methadone Screen Neg (NEG) Urine Barbiturates Neg (NEG) Urine Phencyclidine Screen Neg (NEG) Urine Amphetamine/Methamphetamine Pos (NEG) Urine Benzodiazepines Screen Pos (NEG) Urine Cocaine Screen Neg (NEG) Urine Cannabinoids Screen Pos (NEG) Urine Ethyl Alcohol Neg (NEG) Sodium Level 137 mmol/L (136-145) Potassium Level 4.6 mmol/L (3.5-5.1) Chloride Level 100 mmol/L (98-107) Carbon Dioxide Level 30 mmol/L (21-32) Anion Gap 7 (6-14) Blood Urea Nitrogen 26 mg/dL (8-26) Creatinine 1.3 mg/dL (0.7-1.3) Estimated GFR (Cockcroft-Gault) 57.1 BUN/Creatinine Ratio 20 (6-20) Glucose Level 153 mg/dL (70-99) Calcium Level 8.5 mg/dL (8.5-10.1) Magnesium Level 1.4 mg/dL (1.8-2.4) Total Bilirubin 0.6 mg/dL (0.2-1.0) Aspartate Amino Transf (AST/SGOT) 49 U/L (15-37) Alanine Aminotransferase (ALT/SGPT) 48 U/L (16-63) Alkaline Phosphatase 89 U/L (46-116) Creatine Kinase 306 U/L (39-308) Creatine Kinase MB (Mass) 1.8 ng/mL (0.0-3.6) Creatine Kinase MB Relative Index 0.6 % (0-4) Troponin I Quantitative < 0.017 ng/mL (0.000-0.055) WJ-Xzs-L-Type Natriuretic Peptide 954 pg/mL (0-124) Total Protein 5.7 g/dL (6.4-8.2) Albumin 3.0 g/dL (3.4-5.0) Albumin/Globulin Ratio 1.1 (1.0-1.7) Lipase 100 U/L (73-393) Thyroid Stimulating Hormone (TSH) 1.918 uIU/mL (0.358-3.74) Salicylates Level 5.4 mg/dL (2.8-20.0) Salicylate Last Dose Date Unknown Salicylate Last Dose Time Unknown Acetaminophen Level < 2 mcg/ml (10-30) Acetaminophen Last Dose Date Unknown Acetaminophen Last Dose Time Unknown Ethyl Alcohol Level < 10 mg/dL (0-10) Glucose (Fingerstick) 160 mg/dL (70-99) Test 06/21/18 03:25 06/21/18 11:02 06/21/18 17:02 White Blood Count 6.8 x10^3/uL (4.0-11.0) Red Blood Count 4.45 x10^6/uL (4.30-5.70) Hemoglobin 13.0 g/dL (13.0-17.5) Hematocrit 39.5 % (39.0-53.0) Mean Corpuscular Volume 89 fL (79-100) Mean Corpuscular Hemoglobin 29 pg (25-35) Mean Corpuscular Hemoglobin Concent 33 g/dL (31-37) Red Cell Distribution Width 14.5 % (11.5-14.5) Platelet Count 123 x10^3/uL (140-400) Neutrophils (%) (Auto) 72 % (31-73) Lymphocytes (%) (Auto) 17 % (24-48) Monocytes (%) (Auto) 8 % (0-9) Eosinophils (%) (Auto) 2 % (0-3) Basophils (%) (Auto) 1 % (0-3) Neutrophils # (Auto) 4.9 x10^3uL (1.8-7.7) Lymphocytes # (Auto) 1.2 x10^3/uL (1.0-4.8) Monocytes # (Auto) 0.6 x10^3/uL (0.0-1.1) Eosinophils # (Auto) 0.1 x10^3/uL (0.0-0.7) Basophils # (Auto) 0.0 x10^3/uL (0.0-0.2) Sodium Level 133 mmol/L (136-145) Potassium Level 4.4 mmol/L (3.5-5.1) Chloride Level 100 mmol/L (98-107) Carbon Dioxide Level 27 mmol/L (21-32) Anion Gap 6 (6-14) Blood Urea Nitrogen 22 mg/dL (8-26) Creatinine 0.9 mg/dL (0.7-1.3) Estimated GFR (Cockcroft-Gault) 87.3 Glucose Level 142 mg/dL (70-99) Calcium Level 8.9 mg/dL (8.5-10.1) Lactate Dehydrogenase 219 U/L (85-227) Glucose (Fingerstick) 195 mg/dL (70-99) 177 mg/dL (70-99) Laboratory Tests Test 06/20/18 21:00 06/21/18 03:25 06/21/18 11:02 06/21/18 17:02 Glucose (Fingerstick) 160 mg/dL (70-99) 195 mg/dL (70-99) 177 mg/dL (70-99) White Blood Count 6.8 x10^3/uL (4.0-11.0) Red Blood Count 4.45 x10^6/uL (4.30-5.70) Hemoglobin 13.0 g/dL (13.0-17.5) Hematocrit 39.5 % (39.0-53.0) Mean Corpuscular Volume 89 fL (79-100) Mean Corpuscular Hemoglobin 29 pg (25-35) Mean Corpuscular Hemoglobin Concent 33 g/dL (31-37) Red Cell Distribution Width 14.5 % (11.5-14.5) Platelet Count 123 x10^3/uL (140-400) Neutrophils (%) (Auto) 72 % (31-73) Lymphocytes (%) (Auto) 17 % (24-48) Monocytes (%) (Auto) 8 % (0-9) Eosinophils (%) (Auto) 2 % (0-3) Basophils (%) (Auto) 1 % (0-3) Neutrophils # (Auto) 4.9 x10^3uL (1.8-7.7) Lymphocytes # (Auto) 1.2 x10^3/uL (1.0-4.8) Monocytes # (Auto) 0.6 x10^3/uL (0.0-1.1) Eosinophils # (Auto) 0.1 x10^3/uL (0.0-0.7) Basophils # (Auto) 0.0 x10^3/uL (0.0-0.2) Sodium Level 133 mmol/L (136-145) Potassium Level 4.4 mmol/L (3.5-5.1) Chloride Level 100 mmol/L (98-107) Carbon Dioxide Level 27 mmol/L (21-32) Anion Gap 6 (6-14) Blood Urea Nitrogen 22 mg/dL (8-26) Creatinine 0.9 mg/dL (0.7-1.3) Estimated GFR (Cockcroft-Gault) 87.3 Glucose Level 142 mg/dL (70-99) Calcium Level 8.9 mg/dL (8.5-10.1) Lactate Dehydrogenase 219 U/L (85-227) Images Images CT scan of the pelvis includes the right hip. There are cystic changes and possible osteophyte on series AP images 31 and 32. Lumbar spine degenerative changes at the lower lumbar spine such as series 2 image 60, and series 9 image 40 Assessment/Plan Assessment/Plan Right hip blister. Unclear etiology. Topical treatment with a dressing seems adequate. Right hip chronic pain. CT scan shows possible degenerative changes. X-rays might be more useful in determining if there is osteoarthritis. I mentioned getting dedicated hip x-rays to the patient, and he refuses to have them today because he wants to sleep. Bilateral foot numbness is likely multifactorial, peripheral neuropathy, or possibly related to spinal stenosis. SERENITY VALDIVIA MD Jun 21, 2018 20:01
[2018-06-21] MEDS: LACTOBACILLUS RHAMNOSUS GG 1 CAPSULE. PO SCH (21:03)
[2018-06-22] MEDS: MORPHINE SULFATE 2 MG/ML VIAL. IV PRN ×3 (01:28→17:56)
--- NOTE | 2018-06-22 02:08 | NUR ---
PATIENT REFUSED TO HAVE 2100 BLOOD SUGAR TAKEN, THIS NURSE EXPLAINED IMPORTANCE AND THE DANGERS OF HAVING A HIGH BLOOD SUGAR AND WHY WE NEED TO CHECK THEM. PATIENT STILL REFUSED. WILL CONTINUE TO MONITOR PATIENT.
--- NOTE | 2018-06-22 02:10 | NUR ---
LITO REFUSED TO HAVE 2300 VITAL SIGNS TAKEN. PATIENT STATED THAT "I AM TIRED OF BEING WOKEN UP AND IM NOT DOING THIS SHIT ANYMORE". PATIENT STARTED HE WAS GOING TO FLIP OUT ON DAYSHIFT FOR HAVING TO DEAL WITH THIS STUFF. WILL CONTINUE TO MONITOR PATIENT.
[2018-06-22 03:00] VITALS: BP 146/105
[2018-06-22 05:08] LABS: BASO % 1 % (0-3); EOS # 0.1 x10^3/uL (0.0-0.7); EOS % 2 % (0-3); HEMATOCRIT 43.5 % (39.0-53.0); HEMOGLOBIN 14.6 g/dL (13.0-17.5); LYMPH # 0.9 x10^3/uL (1.0-4.8); LYMPH % 17 % (24-48); MEAN CORPUSCULAR HEMOGLOBIN 30 pg (25-35); MEAN CORPUSCULAR HGB CONC 34 g/dL (31-37); MEAN CORPUSCULAR VOLUME 88 fL (79-100); MONO # 0.4 x10^3/uL (0.0-1.1); MONO % 8 % (0-9); NEUT # 3.8 x10^3uL (1.8-7.7); NEUT % 72 % (31-73); PLATELET COUNT 138 x10^3/uL (140-400); RED BLOOD COUNT 4.94 x10^6/uL (4.30-5.70); RED CELL DISTRIBUTION WIDTH 14.7 % (11.5-14.5); WHITE BLOOD COUNT 5.2 x10^3/uL (4.0-11.0)
[2018-06-22 05:26] LABS: CALCIUM 9.5 mg/dL (8.5-10.1); CREATININE 0.7 mg/dL (0.7-1.3); GFR 116.7; POTASSIUM 4.2 mmol/L (3.5-5.1)
[2018-06-22 07:00] VITALS: BP 162/98
--- NOTE | 2018-06-22 07:33 | EKG ---
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
[2018-06-22] MEDS: LACTOBACILLUS RHAMNOSUS GG 1 CAPSULE. PO SCH ×2 (08:45→20:13)
[2018-06-22] MEDS: oxyCODONE/APAP 5/325 1 TAB TABLET PO PRN ×2 (08:45→16:04)
--- NOTE | 2018-06-22 08:53 | PDOC ---
SUBJECTIVE Subjective S: He was willing to speak to me this morning though trying to sleep when I came in, we discussed possible bone marrow biopsy, his platelets are up a bit but still mildly low, comments of splenomegaly on CT scan at , and weight loss, and he does want to go ahead and get a bone marrow biopsy, he did not eat breakfast, I will go ahead and order this O: Physical exam: Gen.: thin man, resting in bed Lungs: Breathing comfortably Extremities: No edema Skin: Warm and dry Labs: Platelets 138, LDH normal, hepatitis panel ordered Rads: CT chest abdomen and pelvis showed bilateral fibrotic lung changes, coronary calcification, right middle lobe infiltrate, recommend two-month follow-up, pretracheal lymph node about 1 cm, mild dilation of distal small bowel at the anastomotic site, in right lower quadrant Assessment and Plan: He is a 57-year-old male with admission for mental status changes, weight loss. Weight loss: His nurse checked his records and believes that there was more likely a 50 pound weight loss that has been stable recently, nonetheless we'll check bone marrow biopsy to rule out lymphoma with spleen and platelet findings Thrombocytopenia: LDH normal, hepatitis panel ordered, pending bone marrow biopsy Prophylaxis: on lovenox, (history of recent right upper extremity superficial venous thrombosis) Right middle lobe pneumonia: Getting antibiotics, recommend two-month follow-up CT Drug abuse: Recommend cessation Disposition: After clinical improvement, we can follow up bone marrow results after they return as an outpatient as needed Thank you kindly, and please don't hesitate to call with any further questions. OBJECTIVE Vital Signs Vital Signs Date Time Temp Pulse Resp B/P (MAP) Pulse Ox O2 Delivery O2 Flow Rate FiO2 06/22/18 08:45 Room Air 06/22/18 08:45 Room Air 06/22/18 03:00 98.7 80 20 146/105 (119) 97 Room Air 98.7 06/22/18 01:58 98 Room Air 06/22/18 01:28 98 Room Air 06/21/18 21:21 98 Room Air 06/21/18 20:00 Room Air 06/21/18 19:03 98 Room Air 06/21/18 19:00 99.4 87 20 138/96 (110) 93 Room Air 99.4 06/21/18 18:33 Room Air 06/21/18 15:31 Room Air 06/21/18 15:00 96.8 79 16 149/88 (108) 98 Room Air 96.8 06/21/18 13:21 Room Air 06/21/18 11:00 97.3 79 18 140/90 (107) 96 Room Air 97.3 06/21/18 08:52 Room Air I & O Intake and Output 06/22/18 07:00 Intake Total 920 ml Balance 920 ml Intake Oral 920 ml # Voids 2 COMMENT Lab Laboratory Tests Test 06/21/18 11:02 06/21/18 17:02 06/22/18 04:40 Glucose (Fingerstick) 195 mg/dL (70-99) 177 mg/dL (70-99) White Blood Count 5.2 x10^3/uL (4.0-11.0) Red Blood Count 4.94 x10^6/uL (4.30-5.70) Hemoglobin 14.6 g/dL (13.0-17.5) Hematocrit 43.5 % (39.0-53.0) Mean Corpuscular Volume 88 fL (79-100) Mean Corpuscular Hemoglobin 30 pg (25-35) Mean Corpuscular Hemoglobin Concent 34 g/dL (31-37) Red Cell Distribution Width 14.7 % (11.5-14.5) Platelet Count 138 x10^3/uL (140-400) Neutrophils (%) (Auto) 72 % (31-73) Lymphocytes (%) (Auto) 17 % (24-48) Monocytes (%) (Auto) 8 % (0-9) Eosinophils (%) (Auto) 2 % (0-3) Basophils (%) (Auto) 1 % (0-3) Neutrophils # (Auto) 3.8 x10^3uL (1.8-7.7) Lymphocytes # (Auto) 0.9 x10^3/uL (1.0-4.8) Monocytes # (Auto) 0.4 x10^3/uL (0.0-1.1) Eosinophils # (Auto) 0.1 x10^3/uL (0.0-0.7) Basophils # (Auto) 0.0 x10^3/uL (0.0-0.2) Sodium Level 134 mmol/L (136-145) Potassium Level 4.2 mmol/L (3.5-5.1) Chloride Level 98 mmol/L (98-107) Carbon Dioxide Level 26 mmol/L (21-32) Anion Gap 10 (6-14) Blood Urea Nitrogen 15 mg/dL (8-26) Creatinine 0.7 mg/dL (0.7-1.3) Estimated GFR (Cockcroft-Gault) 116.7 Glucose Level 161 mg/dL (70-99) Calcium Level 9.5 mg/dL (8.5-10.1) DAT ESTRELLA MD Jun 22, 2018 08:53
--- NOTE | 2018-06-22 09:00 | NUR ---
Wound Care Wound care consult for blister to right hip. Pt had large fluid filled blister on right lateral hip. Blister popped with cleaning, DTI underlying the blister, indention to periwound from pressure of blister being pressed against it. Dressed wound with Xeroform and foam dressing, recommend to change every 3 days and PRN. No other wounds noted on full skin inspection, educated pt on avoiding pressure to right hip as much as possible and to rotate frequently from left side to back to prevent further pressure ulcers, pt verbalized understanding. Discussed POC with Merle HOUSER. WC will continue to follow for possible changes.
--- NOTE | 2018-06-22 09:32 | PDOC ---
PULMONARY PROGRESS NOTES Subjective BETTER TODAY Vitals Vital Signs Date Time Temp Pulse Resp B/P (MAP) Pulse Ox O2 Delivery O2 Flow Rate FiO2 06/22/18 08:45 Room Air 06/22/18 07:00 98.0 80 18 162/98 (119) 97 98.0 ROS: No Nausea, No Chest Pain, No Abdominal Pain, No Increase Cough Lungs: Wheezing, Crackles Cardiovascular: S1, S2 Abdomen: Soft, Non-tender Neuro Exam: Alert Extremities: No Edema Skin: Warm Labs Laboratory Tests Test 06/20/18 15:15 06/20/18 15:30 06/20/18 16:00 06/20/18 21:00 White Blood Count 8.7 x10^3/uL (4.0-11.0) Red Blood Count 4.67 x10^6/uL (4.30-5.70) Hemoglobin 13.7 g/dL (13.0-17.5) Hematocrit 41.4 % (39.0-53.0) Mean Corpuscular Volume 89 fL (79-100) Mean Corpuscular Hemoglobin 29 pg (25-35) Mean Corpuscular Hemoglobin Concent 33 g/dL (31-37) Red Cell Distribution Width 14.4 % (11.5-14.5) Platelet Count 148 x10^3/uL (140-400) Neutrophils (%) (Auto) 76 % (31-73) Lymphocytes (%) (Auto) 13 % (24-48) Monocytes (%) (Auto) 9 % (0-9) Eosinophils (%) (Auto) 1 % (0-3) Basophils (%) (Auto) 1 % (0-3) Neutrophils # (Auto) 6.7 x10^3uL (1.8-7.7) Lymphocytes # (Auto) 1.1 x10^3/uL (1.0-4.8) Monocytes # (Auto) 0.8 x10^3/uL (0.0-1.1) Eosinophils # (Auto) 0.1 x10^3/uL (0.0-0.7) Basophils # (Auto) 0.1 x10^3/uL (0.0-0.2) Prothrombin Time 15.2 SEC (11.7-14.0) Prothromb Time International Ratio 1.2 (0.8-1.1) Activated Partial Thromboplast Time 34 SEC (24-38) Urine Collection Type Unknown Urine Color Yellow Urine Clarity Clear Urine pH 5.5 Urine Specific Breeding 1.015 Urine Protein Negative mg/dL (NEG-TRACE) Urine Glucose (UA) 250 mg/dL (NEG) Urine Ketones (Stick) Negative mg/dL (NEG) Urine Blood Negative (NEG) Urine Nitrite Negative (NEG) Urine Bilirubin Negative (NEG) Urine Urobilinogen Dipstick 0.2 mg/dL (0.2 mg/dL) Urine Leukocyte Esterase Negative (NEG) Urine RBC 1-2 /HPF (0-2) Urine WBC 0 /HPF (0-4) Urine Squamous Epithelial Cells Few /LPF Urine Bacteria 0 /HPF (0-FEW) Urine Hyaline Casts Few /HPF Urine Mucus Slight /LPF Urine Opiates Screen Pos (NEG) Urine Methadone Screen Neg (NEG) Urine Barbiturates Neg (NEG) Urine Phencyclidine Screen Neg (NEG) Urine Amphetamine/Methamphetamine Pos (NEG) Urine Benzodiazepines Screen Pos (NEG) Urine Cocaine Screen Neg (NEG) Urine Cannabinoids Screen Pos (NEG) Urine Ethyl Alcohol Neg (NEG) Sodium Level 137 mmol/L (136-145) Potassium Level 4.6 mmol/L (3.5-5.1) Chloride Level 100 mmol/L (98-107) Carbon Dioxide Level 30 mmol/L (21-32) Anion Gap 7 (6-14) Blood Urea Nitrogen 26 mg/dL (8-26) Creatinine 1.3 mg/dL (0.7-1.3) Estimated GFR (Cockcroft-Gault) 57.1 BUN/Creatinine Ratio 20 (6-20) Glucose Level 153 mg/dL (70-99) Calcium Level 8.5 mg/dL (8.5-10.1) Magnesium Level 1.4 mg/dL (1.8-2.4) Total Bilirubin 0.6 mg/dL (0.2-1.0) Aspartate Amino Transf (AST/SGOT) 49 U/L (15-37) Alanine Aminotransferase (ALT/SGPT) 48 U/L (16-63) Alkaline Phosphatase 89 U/L (46-116) Creatine Kinase 306 U/L (39-308) Creatine Kinase MB (Mass) 1.8 ng/mL (0.0-3.6) Creatine Kinase MB Relative Index 0.6 % (0-4) Troponin I Quantitative < 0.017 ng/mL (0.000-0.055) DI-Wuc-P-Type Natriuretic Peptide 954 pg/mL (0-124) Total Protein 5.7 g/dL (6.4-8.2) Albumin 3.0 g/dL (3.4-5.0) Albumin/Globulin Ratio 1.1 (1.0-1.7) Lipase 100 U/L (73-393) Thyroid Stimulating Hormone (TSH) 1.918 uIU/mL (0.358-3.74) Salicylates Level 5.4 mg/dL (2.8-20.0) Salicylate Last Dose Date Unknown Salicylate Last Dose Time Unknown Acetaminophen Level < 2 mcg/ml (10-30) Acetaminophen Last Dose Date Unknown Acetaminophen Last Dose Time Unknown Ethyl Alcohol Level < 10 mg/dL (0-10) Glucose (Fingerstick) 160 mg/dL (70-99) Test 06/21/18 03:25 06/21/18 11:02 06/21/18 17:02 06/22/18 04:40 White Blood Count 6.8 x10^3/uL (4.0-11.0) 5.2 x10^3/uL (4.0-11.0) Red Blood Count 4.45 x10^6/uL (4.30-5.70) 4.94 x10^6/uL (4.30-5.70) Hemoglobin 13.0 g/dL (13.0-17.5) 14.6 g/dL (13.0-17.5) Hematocrit 39.5 % (39.0-53.0) 43.5 % (39.0-53.0) Mean Corpuscular Volume 89 fL (79-100) 88 fL (79-100) Mean Corpuscular Hemoglobin 29 pg (25-35) 30 pg (25-35) Mean Corpuscular Hemoglobin Concent 33 g/dL (31-37) 34 g/dL (31-37) Red Cell Distribution Width 14.5 % (11.5-14.5) 14.7 % (11.5-14.5) Platelet Count 123 x10^3/uL (140-400) 138 x10^3/uL (140-400) Neutrophils (%) (Auto) 72 % (31-73) 72 % (31-73) Lymphocytes (%) (Auto) 17 % (24-48) 17 % (24-48) Monocytes (%) (Auto) 8 % (0-9) 8 % (0-9) Eosinophils (%) (Auto) 2 % (0-3) 2 % (0-3) Basophils (%) (Auto) 1 % (0-3) 1 % (0-3) Neutrophils # (Auto) 4.9 x10^3uL (1.8-7.7) 3.8 x10^3uL (1.8-7.7) Lymphocytes # (Auto) 1.2 x10^3/uL (1.0-4.8) 0.9 x10^3/uL (1.0-4.8) Monocytes # (Auto) 0.6 x10^3/uL (0.0-1.1) 0.4 x10^3/uL (0.0-1.1) Eosinophils # (Auto) 0.1 x10^3/uL (0.0-0.7) 0.1 x10^3/uL (0.0-0.7) Basophils # (Auto) 0.0 x10^3/uL (0.0-0.2) 0.0 x10^3/uL (0.0-0.2) Sodium Level 133 mmol/L (136-145) 134 mmol/L (136-145) Potassium Level 4.4 mmol/L (3.5-5.1) 4.2 mmol/L (3.5-5.1) Chloride Level 100 mmol/L (98-107) 98 mmol/L (98-107) Carbon Dioxide Level 27 mmol/L (21-32) 26 mmol/L (21-32) Anion Gap 6 (6-14) 10 (6-14) Blood Urea Nitrogen 22 mg/dL (8-26) 15 mg/dL (8-26) Creatinine 0.9 mg/dL (0.7-1.3) 0.7 mg/dL (0.7-1.3) Estimated GFR (Cockcroft-Gault) 87.3 116.7 Glucose Level 142 mg/dL (70-99) 161 mg/dL (70-99) Calcium Level 8.9 mg/dL (8.5-10.1) 9.5 mg/dL (8.5-10.1) Lactate Dehydrogenase 219 U/L (85-227) Glucose (Fingerstick) 195 mg/dL (70-99) 177 mg/dL (70-99) Laboratory Tests Test 06/21/18 11:02 06/21/18 17:02 06/22/18 04:40 Glucose (Fingerstick) 195 mg/dL (70-99) 177 mg/dL (70-99) White Blood Count 5.2 x10^3/uL (4.0-11.0) Red Blood Count 4.94 x10^6/uL (4.30-5.70) Hemoglobin 14.6 g/dL (13.0-17.5) Hematocrit 43.5 % (39.0-53.0) Mean Corpuscular Volume 88 fL (79-100) Mean Corpuscular Hemoglobin 30 pg (25-35) Mean Corpuscular Hemoglobin Concent 34 g/dL (31-37) Red Cell Distribution Width 14.7 % (11.5-14.5) Platelet Count 138 x10^3/uL (140-400) Neutrophils (%) (Auto) 72 % (31-73) Lymphocytes (%) (Auto) 17 % (24-48) Monocytes (%) (Auto) 8 % (0-9) Eosinophils (%) (Auto) 2 % (0-3) Basophils (%) (Auto) 1 % (0-3) Neutrophils # (Auto) 3.8 x10^3uL (1.8-7.7) Lymphocytes # (Auto) 0.9 x10^3/uL (1.0-4.8) Monocytes # (Auto) 0.4 x10^3/uL (0.0-1.1) Eosinophils # (Auto) 0.1 x10^3/uL (0.0-0.7) Basophils # (Auto) 0.0 x10^3/uL (0.0-0.2) Sodium Level 134 mmol/L (136-145) Potassium Level 4.2 mmol/L (3.5-5.1) Chloride Level 98 mmol/L (98-107) Carbon Dioxide Level 26 mmol/L (21-32) Anion Gap 10 (6-14) Blood Urea Nitrogen 15 mg/dL (8-26) Creatinine 0.7 mg/dL (0.7-1.3) Estimated GFR (Cockcroft-Gault) 116.7 Glucose Level 161 mg/dL (70-99) Calcium Level 9.5 mg/dL (8.5-10.1) Medications Active Scripts Medications Dose Route/Sig Max Daily Dose Days Date Category Lantus Solostar (Insulin Glargine,Hum.rec.anlog) 100 Unit/1 Ml Insuln.pen 10 Units SQ QHS 30 03/23/18 Rx Carafate (Sucralfate) 1 Gm Tablet 1 Gm PO BIDWMEALS 30 03/23/18 Rx Percocet 5-325 Mg Tablet (Oxycodone/Acetaminophen) 1 Each Tablet 1 Tab PO PRN Q6HRS PRN 6 03/23/18 Rx Mag-Oxide (Magnesium Oxide) 400 Mg Tablet 1 Tab PO BID 30 03/23/18 Rx Cyclobenzaprine Hcl 10 Mg Tablet 10 Mg PO TID 03/12/18 Rx Alprazolam 1 Mg Tablet 1 Tab PO TID PRN 02/27/18 Reported Polyethylene Glycol 3350 17 Gm Powd.pack 17 Gm PO PRN DAILY PRN 10 02/12/18 Rx Colace (Docusate Sodium) 100 Mg Capsule 100 Mg PO [id number] 28 02/12/18 Rx Dicyclomine Hcl 10 Mg Capsule 20 Mg PO PRN QID PRN 14 01/29/18 Rx Lisinopril 10 Mg Tablet 1 Tab PO DAILY 01/27/18 Reported Amitriptyline Hcl 10 Mg Tablet 2 Tab PO QHS 01/27/18 Reported Potassium Chloride 20 Meq Tablet.er 20 Meq PO DAILY 01/27/18 Reported Levetiracetam 500 Mg Tablet 1 Tab PO BID 01/27/18 Reported Gabapentin (Gabapentin) 300 Mg Capsule 300 Mg PO TID 01/27/18 Reported Atorvastatin Calcium 80 Mg Tablet 1 Tab PO DAILY 01/27/18 Reported Metoprolol Succinate ( Xl ) (Metoprolol Succinate) 100 Mg Tab.er.24h 1 Tab PO DAILY 01/27/18 Reported Spironolactone 25 Mg Tablet 1 Tab PO DAILY 09/25/16 Reported Amiodarone Hcl 200 Mg Tablet 1 Tab PO DAILY 09/25/16 Reported Impression . IMPRESSION: 1. Abnormal x-ray, suspect pneumonia. 2. Tobacco dependent. 3. Acute exacerbation of chronic obstructive pulmonary disease. 4. Metabolic toxic encephalopathy. 5. Polysubstance use. The patient tested positive for cannabinoids, benzodiazepines, amphetamines and opiates. 6. Subjective weight loss. 7. Thrombocytopenia. Plan . CONTINUE THE SAME 1. Recommend treatment for pneumonia. 2. Repeat CT chest in 2 months. 3. Follow Hematology/Oncology consult. 4. Continue antibiotics. RC ELIZALDE MD Jun 22, 2018 09:32
[2018-06-22 10:49] VITALS: BP 130/89
--- NOTE | 2018-06-22 10:51 | PDOC ---
PROGRESS NOTES Chief Complaint Chief Complaint impression acute metabolic encephalopathy Altered mental status thrombocytopenia right middle lobe pneumonia infiltrate posteriorly of the right middle lobe, slightly nodular morphology for which short-term follow-up after treatment advised such as within 2 months. There is other likely fibrotic change of the bilateral hemithoraces. HX median sternotomy. There is coronary calcification. There is borderline enlarged pretracheal node as seen previously. 100 pound weight loss in 6 months, A SEVERE DECLINE suspect metastatic disease CAD s/p CABG 2014. clinically stable. Chronic systolic CHF with ICM; Recent EF 35%, compensated Paroxysmal atrial flutter; hx DM2/HLP H/o substance abuse: meth in the past and marijuana. Potential opioid seeking. AICD in situ: [employer]. Interrogated and no abnormalities reported. 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 Reviewed pictures of right hip bulla with RN. thrombocytopenia Vitals Vitals Vital Signs Date Time Temp Pulse Resp B/P (MAP) Pulse Ox O2 Delivery O2 Flow Rate FiO2 06/22/18 09:40 97 Room Air 06/22/18 07:00 98.0 80 18 162/98 (119) 98.0 Physical Exam General: Alert, Oriented X3, Cooperative, mild distress, Other (seemed really annoyed when I asked questions or tried to examine him. He did not even roll onto his back, but stayed rolled on his side facing away from me and answered questions from there.) Heart: Regular rate, Normal S1, Normal S2, No murmurs Lungs: Crackles, Other (symmetric chest expansion) Abdomen: Soft, No tenderness Extremities: No cyanosis, Other (the right hip has a aqua cell foam dressing which I lifted up to observe a blister that is approximately 8 x 8 cm. It has serous but not bloody fluid. Unclear etiology. Mild hip pain with range of motion but the blister 10 cm distal to the greater trochanter, not over the greater trochanter, an unusual location for traumatic contact. ) Skin: No rashes, No significant lesion Labs LABS CT CHEST ABD PELVIS W/CONTRAST Indication: 100 pound weight loss in 6 months Technique: Postcontrast CT imaging was performed of the chest abdomen pelvis, multiplanar reconstruction images submitted. Oral contrast was also given. One or more of the following individualized dose reduction techniques were utilized for this examination: 1. Automated exposure control 2. Adjustment of the mA and/or kV according to patient size 3. Use of iterative reconstruction technique. Comparison: Chest CTA February 27, [address] abdomen pelvis February 11, 2018; chest CT February 09, 2018 CHEST: Findings: There is now infiltrate posteriorly of the right middle lobe, somewhat nodular morphology. There is again some reticular density of the right lower lobe and also mild density with bronchiectasis posteriorly of the right upper lobe fairly similar in appearance. There is also mild likely fibrotic change of the lingula and left lower lobe. There is no pneumothorax or significant pleural fluid. There is no pericardial effusion. There is coronary calcification. There has been a median sternotomy. Thoracic aortic caliber is within normal limits, no intraluminal flap. There is some mediastinal nodes largest pretracheal node borderline about 1 cm, as fairly similar in size. There is no abnormality visualized thyroid gland. Thoracic vertebral body stature is maintained. IMPRESSION: 1. There is now infiltrate posteriorly of the right middle lobe, slightly nodular morphology for which short-term follow-up after treatment advised such as within 2 months. There is other likely fibrotic change of the bilateral hemithoraces. 2. There has been median sternotomy. There is coronary calcification. 3. There is borderline enlarged pretracheal node as seen previously. Abdomen pelvis: Findings No new abnormality is identified of the liver, spleen, pancreas. There is no adrenal nodularity. There has been cholecystectomy. Both kidneys enhance, no hydronephrosis. There is some atherosclerotic calcification abdominal aorta and iliac arteries. Segment of small bowel near anastomotic site in the right pelvis is somewhat prominent about 3.5 cm in caliber although other segments of the small bowel are not significantly dilated. There is no colonic dilatation. There is no free air or significant free fluid. There is retained stool variably in the colon. No significantly enlarged nodes are identified. There is degenerative disc disease L4-5. There is [id number] narrowing of the left L4-5 neural foramen. There is facet degenerative change greater inferiorly of the lumbar spine. IMPRESSION: 1. There is segmental mild dilatation of the distal small small bowel near anastomotic site in the right lower quadrant although remainder of the bowel is not dilated. Electronically signed by: Fariba Naqvi MD (06/21/2018 3:19 PM) [facility] DICTATED and SIGNED BY: FARIBA NAQVI MD DATE: 06/21/18 1519 Laboratory Tests Test 06/21/18 11:02 06/21/18 17:02 06/22/18 04:40 Glucose (Fingerstick) 195 mg/dL (70-99) 177 mg/dL (70-99) White Blood Count 5.2 x10^3/uL (4.0-11.0) Red Blood Count 4.94 x10^6/uL (4.30-5.70) Hemoglobin 14.6 g/dL (13.0-17.5) Hematocrit 43.5 % (39.0-53.0) Mean Corpuscular Volume 88 fL (79-100) Mean Corpuscular Hemoglobin 30 pg (25-35) Mean Corpuscular Hemoglobin Concent 34 g/dL (31-37) Red Cell Distribution Width 14.7 % (11.5-14.5) Platelet Count 138 x10^3/uL (140-400) Neutrophils (%) (Auto) 72 % (31-73) Lymphocytes (%) (Auto) 17 % (24-48) Monocytes (%) (Auto) 8 % (0-9) Eosinophils (%) (Auto) 2 % (0-3) Basophils (%) (Auto) 1 % (0-3) Neutrophils # (Auto) 3.8 x10^3uL (1.8-7.7) Lymphocytes # (Auto) 0.9 x10^3/uL (1.0-4.8) Monocytes # (Auto) 0.4 x10^3/uL (0.0-1.1) Eosinophils # (Auto) 0.1 x10^3/uL (0.0-0.7) Basophils # (Auto) 0.0 x10^3/uL (0.0-0.2) Sodium Level 134 mmol/L (136-145) Potassium Level 4.2 mmol/L (3.5-5.1) Chloride Level 98 mmol/L (98-107) Carbon Dioxide Level 26 mmol/L (21-32) Anion Gap 10 (6-14) Blood Urea Nitrogen 15 mg/dL (8-26) Creatinine 0.7 mg/dL (0.7-1.3) Estimated GFR (Cockcroft-Gault) 116.7 Glucose Level 161 mg/dL (70-99) Calcium Level 9.5 mg/dL (8.5-10.1) Assessment and Plan Assessmemt and Plan Problems Medical Problems: (1) Altered mental status Status: Acute (2) Right lower lobe pulmonary infiltrate Status: Acute Past Medical History Cardiovascular: CAD Pulmonary: Bronchitis CENTRAL NERVOUS SYSTEM: CVA, Periperal neuropathy GI: Other Heme/Onc: No pertinent hx Hepatobiliary: No pertinent hx Musculoskeletal: Osteoarthritis Rheumatologic: No pertinent hx Infectious disease: No pertinent hx Renal/: No pertinent hx Past Surgical History Past Surgical History: Pacemaker, Cholecystectomy, CABG, Cystoscopy, Tonsillectomy Family History Family History: Coronary Artery Disease Social History ALCOHOL: rare Drugs: Marijuana Lives: with Family Comment Review of Relevant I have reviewed the following items otis (where applicable) has been applied. Labs Laboratory Tests Test 06/20/18 15:15 06/20/18 15:30 06/20/18 16:00 06/20/18 21:00 White Blood Count 8.7 x10^3/uL (4.0-11.0) Red Blood Count 4.67 x10^6/uL (4.30-5.70) Hemoglobin 13.7 g/dL (13.0-17.5) Hematocrit 41.4 % (39.0-53.0) Mean Corpuscular Volume 89 fL (79-100) Mean Corpuscular Hemoglobin 29 pg (25-35) Mean Corpuscular Hemoglobin Concent 33 g/dL (31-37) Red Cell Distribution Width 14.4 % (11.5-14.5) Platelet Count 148 x10^3/uL (140-400) Neutrophils (%) (Auto) 76 % (31-73) Lymphocytes (%) (Auto) 13 % (24-48) Monocytes (%) (Auto) 9 % (0-9) Eosinophils (%) (Auto) 1 % (0-3) Basophils (%) (Auto) 1 % (0-3) Neutrophils # (Auto) 6.7 x10^3uL (1.8-7.7) Lymphocytes # (Auto) 1.1 x10^3/uL (1.0-4.8) Monocytes # (Auto) 0.8 x10^3/uL (0.0-1.1) Eosinophils # (Auto) 0.1 x10^3/uL (0.0-0.7) Basophils # (Auto) 0.1 x10^3/uL (0.0-0.2) Prothrombin Time 15.2 SEC (11.7-14.0) Prothromb Time International Ratio 1.2 (0.8-1.1) Activated Partial Thromboplast Time 34 SEC (24-38) Urine Collection Type Unknown Urine Color Yellow Urine Clarity Clear Urine pH 5.5 Urine Specific [place] 1.015 Urine Protein Negative mg/dL (NEG-TRACE) Urine Glucose (UA) 250 mg/dL (NEG) Urine Ketones (Stick) Negative mg/dL (NEG) Urine Blood Negative (NEG) Urine Nitrite Negative (NEG) Urine Bilirubin Negative (NEG) Urine Urobilinogen Dipstick 0.2 mg/dL (0.2 mg/dL) Urine Leukocyte Esterase Negative (NEG) Urine RBC 1-2 /HPF (0-2) Urine WBC 0 /HPF (0-4) Urine Squamous Epithelial Cells Few /LPF Urine Bacteria 0 /HPF (0-FEW) Urine Hyaline Casts Few /HPF Urine Mucus Slight /LPF Urine Opiates Screen Pos (NEG) Urine Methadone Screen Neg (NEG) Urine Barbiturates Neg (NEG) Urine Phencyclidine Screen Neg (NEG) Urine Amphetamine/Methamphetamine Pos (NEG) Urine Benzodiazepines Screen Pos (NEG) Urine Cocaine Screen Neg (NEG) Urine Cannabinoids Screen Pos (NEG) Urine Ethyl Alcohol Neg (NEG) Sodium Level 137 mmol/L (136-145) Potassium Level 4.6 mmol/L (3.5-5.1) Chloride Level 100 mmol/L (98-107) Carbon Dioxide Level 30 mmol/L (21-32) Anion Gap 7 (6-14) Blood Urea Nitrogen 26 mg/dL (8-26) Creatinine 1.3 mg/dL (0.7-1.3) Estimated GFR (Cockcroft-Gault) 57.1 BUN/Creatinine Ratio 20 (6-20) Glucose Level 153 mg/dL (70-99) Calcium Level 8.5 mg/dL (8.5-10.1) Magnesium Level 1.4 mg/dL (1.8-2.4) Total Bilirubin 0.6 mg/dL (0.2-1.0) Aspartate Amino Transf (AST/SGOT) 49 U/L (15-37) Alanine Aminotransferase (ALT/SGPT) 48 U/L (16-63) Alkaline Phosphatase 89 U/L (46-116) Creatine Kinase 306 U/L (39-308) Creatine Kinase MB (Mass) 1.8 ng/mL (0.0-3.6) Creatine Kinase MB Relative Index 0.6 % (0-4) Troponin I Quantitative < 0.017 ng/mL (0.000-0.055) [id number]-Type Natriuretic Peptide 954 pg/mL (0-124) Total Protein 5.7 g/dL (6.4-8.2) Albumin 3.0 g/dL (3.4-5.0) Albumin/Globulin Ratio 1.1 (1.0-1.7) Lipase 100 U/L (73-393) Thyroid Stimulating Hormone (TSH) 1.918 uIU/mL (0.358-3.74) Salicylates Level 5.4 mg/dL (2.8-20.0) Salicylate Last Dose Date Unknown Salicylate Last Dose Time Unknown Acetaminophen Level < 2 mcg/ml (10-30) Acetaminophen Last Dose Date Unknown Acetaminophen Last Dose Time Unknown Ethyl Alcohol Level < 10 mg/dL (0-10) Glucose (Fingerstick) 160 mg/dL (70-99) Test 06/21/18 03:25 06/21/18 11:02 06/21/18 17:02 06/22/18 04:40 White Blood Count 6.8 x10^3/uL (4.0-11.0) 5.2 x10^3/uL (4.0-11.0) Red Blood Count 4.45 x10^6/uL (4.30-5.70) 4.94 x10^6/uL (4.30-5.70) Hemoglobin 13.0 g/dL (13.0-17.5) 14.6 g/dL (13.0-17.5) Hematocrit 39.5 % (39.0-53.0) 43.5 % (39.0-53.0) Mean Corpuscular Volume 89 fL (79-100) 88 fL (79-100) Mean Corpuscular Hemoglobin 29 pg (25-35) 30 pg (25-35) Mean Corpuscular Hemoglobin Concent 33 g/dL (31-37) 34 g/dL (31-37) Red Cell Distribution Width 14.5 % (11.5-14.5) 14.7 % (11.5-14.5) Platelet Count 123 x10^3/uL (140-400) 138 x10^3/uL (140-400) Neutrophils (%) (Auto) 72 % (31-73) 72 % (31-73) Lymphocytes (%) (Auto) 17 % (24-48) 17 % (24-48) Monocytes (%) (Auto) 8 % (0-9) 8 % (0-9) Eosinophils (%) (Auto) 2 % (0-3) 2 % (0-3) Basophils (%) (Auto) 1 % (0-3) 1 % (0-3) Neutrophils # (Auto) 4.9 x10^3uL (1.8-7.7) 3.8 x10^3uL (1.8-7.7) Lymphocytes # (Auto) 1.2 x10^3/uL (1.0-4.8) 0.9 x10^3/uL (1.0-4.8) Monocytes # (Auto) 0.6 x10^3/uL (0.0-1.1) 0.4 x10^3/uL (0.0-1.1) Eosinophils # (Auto) 0.1 x10^3/uL (0.0-0.7) 0.1 x10^3/uL (0.0-0.7) Basophils # (Auto) 0.0 x10^3/uL (0.0-0.2) 0.0 x10^3/uL (0.0-0.2) Sodium Level 133 mmol/L (136-145) 134 mmol/L (136-145) Potassium Level 4.4 mmol/L (3.5-5.1) 4.2 mmol/L (3.5-5.1) Chloride Level 100 mmol/L (98-107) 98 mmol/L (98-107) Carbon Dioxide Level 27 mmol/L (21-32) 26 mmol/L (21-32) Anion Gap 6 (6-14) 10 (6-14) Blood Urea Nitrogen 22 mg/dL (8-26) 15 mg/dL (8-26) Creatinine 0.9 mg/dL (0.7-1.3) 0.7 mg/dL (0.7-1.3) Estimated GFR (Cockcroft-Gault) 87.3 116.7 Glucose Level 142 mg/dL (70-99) 161 mg/dL (70-99) Calcium Level 8.9 mg/dL (8.5-10.1) 9.5 mg/dL (8.5-10.1) Lactate Dehydrogenase 219 U/L (85-227) Glucose (Fingerstick) 195 mg/dL (70-99) 177 mg/dL (70-99) Laboratory Tests Test 06/21/18 11:02 06/21/18 17:02 06/22/18 04:40 Glucose (Fingerstick) 195 mg/dL (70-99) 177 mg/dL (70-99) White Blood Count 5.2 x10^3/uL (4.0-11.0) Red Blood Count 4.94 x10^6/uL (4.30-5.70) Hemoglobin 14.6 g/dL (13.0-17.5) Hematocrit 43.5 % (39.0-53.0) Mean Corpuscular Volume 88 fL (79-100) Mean Corpuscular Hemoglobin 30 pg (25-35) Mean Corpuscular Hemoglobin Concent 34 g/dL (31-37) Red Cell Distribution Width 14.7 % (11.5-14.5) Platelet Count 138 x10^3/uL (140-400) Neutrophils (%) (Auto) 72 % (31-73) Lymphocytes (%) (Auto) 17 % (24-48) Monocytes (%) (Auto) 8 % (0-9) Eosinophils (%) (Auto) 2 % (0-3) Basophils (%) (Auto) 1 % (0-3) Neutrophils # (Auto) 3.8 x10^3uL (1.8-7.7) Lymphocytes # (Auto) 0.9 x10^3/uL (1.0-4.8) Monocytes # (Auto) 0.4 x10^3/uL (0.0-1.1) Eosinophils # (Auto) 0.1 x10^3/uL (0.0-0.7) Basophils # (Auto) 0.0 x10^3/uL (0.0-0.2) Sodium Level 134 mmol/L (136-145) Potassium Level 4.2 mmol/L (3.5-5.1) Chloride Level 98 mmol/L (98-107) Carbon Dioxide Level 26 mmol/L (21-32) Anion Gap 10 (6-14) Blood Urea Nitrogen 15 mg/dL (8-26) Creatinine 0.7 mg/dL (0.7-1.3) Estimated GFR (Cockcroft-Gault) 116.7 Glucose Level 161 mg/dL (70-99) Calcium Level 9.5 mg/dL (8.5-10.1) Microbiology 06/21/18 Blood Culture - Preliminary, Resulted NO GROWTH AFTER 1 DAY Medications Current Medications Sodium Chloride 1,000 ml @ 1,000 mls/hr 1X ONCE IV Last administered on at 15:49; Start 06/20/18 at 15:30; Stop 06/20/18 at 16:29; Status DC Ceftriaxone Sodium (Rocephin) 1 gm 1X ONCE IVP Last administered on 06/20/18at 18:52; Start 06/20/18 at 19:00; Stop 06/20/18 at 19:01; Status DC Ondansetron HCl (Zofran) 4 mg PRN Q8HRS PRN IV NAUSEA/VOMITING Last administered on 06/21/18at 13:52; Start 06/20/18 at 19:45; Stop 06/21/18 at 19:44; Status DC Morphine Sulfate (Morphine Sulfate) 2 mg PRN Q2HR PRN IV PAIN Last administered on 06/21/18at 18:33; Start 06/20/18 at 19:45; Stop 06/21/18 at 19:44; Status DC Acetaminophen (Tylenol) 650 mg PRN Q4HRS PRN PO FEVER; Start 06/20/18 at 19:45; Stop 06/21/18 at 19:44; Status DC Enoxaparin Sodium (Lovenox 40mg Syringe) 40 mg Q24H SQ Last administered on 06/21/18at 15:34; Start 06/21/18 at 16:00 Ceftriaxone Sodium (Rocephin) 1 gm Q24H IVP Last administered on 06/21/18at 18:33; Start 06/21/18 at 19:00 Iohexol (Omnipaque 300 Mg/ml) 75 ml 1X ONCE IV Last administered on 06/21/18at 14:26; Start 06/21/18 at 13:30; Stop 06/21/18 at 13:31; Status DC Iohexol (Omnipaque 240 Mg/ml) 30 ml 1X ONCE PO Last administered on 06/21/18at 13:15; Start 06/21/18 at 13:15; Stop 06/21/18 at 13:17; Status DC Info (CONTRAST GIVEN -- Rx MONITORING) 1 each PRN DAILY PRN MC SEE COMMENTS; Start 06/21/18 at 13:30; Stop 06/23/18 at 13:29 Lactobacillus Rhamnosus (Culturelle) 1 cap BID PO Last administered on 06/22/18 08:45; Start 06/21/18 at 21:00 Morphine Sulfate (Morphine Sulfate) 2 mg PRN Q4HRS PRN IV SEVERE PAIN Last administered on 06/22/18 08:45; Start 06/21/18 at 21:15 Oxycodone/ Acetaminophen (Percocet 5/325) 1 tab PRN Q6HRS PRN PO SEVERE PAIN Last administered on 06/22/18 08:45; Start 06/21/18 at 21:15 Active Scripts Active Lantus Solostar (Insulin Glargine,Hum.rec.anlog) 100 Unit/1 Ml Insuln.pen 10 Units SQ QHS 30 Days Carafate (Sucralfate) 1 Gm Tablet 1 Gm PO BIDWMEALS 30 Days Percocet 5-325 Mg Tablet (Oxycodone/Acetaminophen) 1 Each Tablet 1 Tab PO PRN Q6HRS PRN 6 Days Mag-Oxide (Magnesium Oxide) 400 Mg Tablet 1 Tab PO BID 30 Days Cyclobenzaprine Hcl 10 Mg Tablet 10 Mg PO TID Polyethylene Glycol 3350 17 Gm Powd.pack 17 Gm PO PRN DAILY PRN 10 Days Colace (Docusate Sodium) 100 Mg Capsule 100 Mg PO BID66 28 Days Dicyclomine Hcl 10 Mg Capsule 20 Mg PO PRN QID PRN 14 Days Reported Alprazolam 1 Mg Tablet 1 Tab PO TID PRN Lisinopril 10 Mg Tablet 1 Tab PO DAILY Amitriptyline Hcl 10 Mg Tablet 2 Tab PO QHS Potassium Chloride 20 Meq Tablet.er 20 Meq PO DAILY Levetiracetam 500 Mg Tablet 1 Tab PO BID Gabapentin (Gabapentin) 300 Mg Capsule 300 Mg PO TID Atorvastatin Calcium 80 Mg Tablet 1 Tab PO DAILY Metoprolol Succinate ( Xl ) (Metoprolol Succinate) 100 Mg Tab.er.24h 1 Tab PO DAILY Spironolactone 25 Mg Tablet 1 Tab PO DAILY Amiodarone Hcl 200 Mg Tablet 1 Tab PO DAILY Vitals/I & O Vital Sign - Last 24 Hours 06/21/18 06/21/18 06/21/18 06/21/18 11:00 13:21 15:00 15:31 Temp 97.3 96.8 97.3 96.8 Pulse 79 79 Resp 18 16 B/P (MAP) 140/90 (107) 149/88 (108) Pulse Ox 96 98 O2 Delivery Room Air Room Air Room Air Room Air 06/21/18 06/21/18 06/21/18 06/21/18 18:33 19:00 19:03 20:00 Temp 99.4 99.4 Pulse 87 Resp 20 B/P (MAP) 138/96 (110) Pulse Ox 93 98 O2 Delivery Room Air Room Air Room Air Room Air 06/21/18 06/22/18 06/22/18 06/22/18 21:21 01:28 03:00 07:00 Temp 98.7 98.0 98.7 98.0 Pulse 80 80 Resp 20 18 B/P (MAP) 146/105 (119) 162/98 (119) Pulse Ox 98 98 97 97 O2 Delivery Room Air Room Air Room Air Room Air 06/22/18 06/22/18 06/22/18 06/22/18 08:40 08:45 08:45 09:40 Pulse Ox 97 O2 Delivery Room Air Room Air Room Air Room Air 06/22/18 09:40 Pulse Ox 97 O2 Delivery Room Air Intake and Output 06/21/18 06/21/18 06/22/18 14:59 22:59 06:59 Intake Total 520 ml 400 ml Balance 520 ml 400 ml SARAH RDUD MD Jun 22, 2018 10:51
[2018-06-22] MEDS ORDERED: POTA10TA12 PO (12:13)
[2018-06-22] MEDS ORDERED: DOCU100C28 PO (12:13)
[2018-06-22] MEDS ORDERED: TIZA4TAB PO (12:13)
[2018-06-22] MEDS ORDERED: METO10TA PO (12:13)
[2018-06-22] MEDS ORDERED: HYDR-2769 PO (12:13)
[2018-06-22] MEDS ORDERED: SITA1TAB11 PO (12:13)
[2018-06-22] MEDS ORDERED: FURO20TA3 PO (12:13)
[2018-06-22] MEDS ORDERED: AMIT25TA PO (12:13)
[2018-06-22] MEDS ORDERED: tiZANidine 4 MG TABLET. PO PRN (12:15)
[2018-06-22] MEDS ORDERED: LEVE500T56 PO (12:20)
--- NOTE | 2018-06-22 12:35 | CONS ---
DATE OF CONSULTATION: 06/21/2018 ATTENDING PHYSICIAN: Dr. Kerry Rayo. REASON FOR CONSULTATION: The patient seen in pulmonary consultation at the request of Dr. Rayo for abnormal x-ray revealing right upper lobe consolidation and right lower lobe infiltrate. HISTORY OF PRESENT ILLNESS: The patient is a 57-year-old with a history of polysubstance abuse presented with increasing shortness of breath, altered mental status, according to the patient, his stated that he was confused and presented to the Emergency Room. Part of his workup included a CT chest, abdomen and pelvis. CT chest was reviewed. There is an infiltrate posterior in the right middle lobe. There was also evidence of previous median sternotomy, coronary artery calcification, he had borderline pretracheal nodes, there were enlarged. I was asked to see him in consultation. The patient has a cough, coughing up some green sputum. He smokes. He denies drug use. He denies hemoptysis. PAST MEDICAL HISTORY: Coronary artery disease with previous myocardial infarction, pacemaker implantation, stroke, type 2 diabetes, AFib with rapid ventricular response, history of seizure, cardiomyopathy, right upper superficial thrombophlebitis, peripheral neuropathy, previous pneumonia, previous pulmonary nodule, tobacco dependence. PAST SURGICAL HISTORY: As above. He has had previous cholecystectomy. ALLERGIES: PENICILLIN. MEDICATIONS: List was reviewed. SOCIAL HISTORY: He is . He is not working. Denies any current use of alcohol. He has quit tobacco two days ago. FAMILY HISTORY: Grandmother had cancer. REVIEW OF SYSTEMS: As indicated above, otherwise a 10-point system was reviewed and negative. CONSTITUTIONAL: No fever or chills. EYES: No change in visual acuity. HENT: No nasal congestion or sore throat. PULMONARY: As indicated above. CARDIOVASCULAR: No chest pain. No pressure. GASTROINTESTINAL: No nausea, vomiting or diarrhea. GENITOURINARY: No dysuria or frequency. MUSCULOSKELETAL: No localized muscle aches or joint pains. SKIN: No new skin rashes. NEUROLOGIC: No headaches, diplopia or blurred vision. PHYSICAL EXAMINATION: GENERAL: The patient appeared to be older than stated age. VITAL SIGNS: Stable. O2 saturation was greater than 92% on room air. HEENT: Eyes, the sclerae were nonicteric. NECK: Jugular venous distention was not elevated. No lymphadenopathy. CHEST: Full expansion. LUNGS: Adequate airway flow with no wheezes. CARDIOVASCULAR: Regular rate and rhythm with S1, S2, no S3. ABDOMEN: Soft, nontender, nondistended. EXTREMITIES: No clubbing, cyanosis or edema. LABORATORY DATA: Reviewed. White count was normal. Hemoglobin and hematocrit were noted. Electrolytes were noted. Sodium was slightly low. Troponin was not elevated. Albumin was low. IMPRESSION: 1. Abnormal x-ray, suspect pneumonia. 2. Tobacco dependent. 3. Acute exacerbation of chronic obstructive pulmonary disease. 4. Metabolic toxic encephalopathy. 5. Polysubstance use. The patient tested positive for cannabinoids, benzodiazepines, amphetamines and opiates. 6. Subjective weight loss. 7. Thrombocytopenia. PLAN: 1. Recommend treatment for pneumonia. 2. Repeat CT chest in 2 months. 3. Follow Hematology/Oncology consult. 4. Continue antibiotics. I do appreciate the privilege in sharing in the patient's care. RC ELIZALDE MD DR: TESS/adal JOB#: [id number] / [id number]
[2018-06-22] MEDS: POTASSIUM CHLORIDE 10 MEQ TABLET.ER. PO SCH (12:36)
[2018-06-22] MEDS: LISINOPRIL 10 MG TABLET PO SCH (12:36)
[2018-06-22] MEDS: FUROSEMIDE 20 MG TABLET PO SCH (12:37)
[2018-06-22] MEDS: DOCUSATE SODIUM 100 MG CAPSULE. PO SCH (12:37)
[2018-06-22] MEDS: AMIODARONE HCL 200 MG TABLET. PO SCH (12:37)
[2018-06-22] MEDS: HYDROcodone/APAP 10/325 1 TAB TABLET PO PRN (12:39)
[2018-06-22] MEDS: ONDANSETRON PF 4 MG/2 ML VIAL. IV PRN ×2 (12:51→17:56)
[2018-06-22] MEDS: GABAPENTIN 300 MG CAPSULE. PO SCH ×2 (13:30→20:13)
--- NOTE | 2018-06-22 13:40 | RAD ---
EXAM: Pelvis and right hip, 2 views. HISTORY: Pain and popping. COMPARISON: None. FINDINGS: A frontal view the pelvis and frog-leg view the right hip are obtained. There is no fracture, dislocation or subluxation. There is slight decreased femoral head-neck offset with degenerative subchondral cyst formation, a finding suggesting chronic hip impingement. IMPRESSION: 1. No acute osseous finding. 2. Findings suggesting chronic femoroacetabular impingement. Electronically signed by: Eunice Garcia MD (06/22/2018 1:37 PM) [place] [id number]
[2018-06-22] MEDS: ENOXAPARIN 40 MG/0.4 ML SYRINGE. SQ SCH (16:00)
[2018-06-22] MEDS: METOCLOPRAMIDE 10 MG TABLET. PO SCH ×2 (16:03→20:14)
[2018-06-22 19:00] VITALS: BP 99/72
[2018-06-22] MEDS: cefTRIAXone IV Push 1 GM VIAL. IVP SCH (20:12)
[2018-06-22] MEDS: levETIRAcetam 500 MG TABLET PO SCH (20:13)
[2018-06-22] MEDS: AMITRIPTYLINE HCL 25 MG TABLET. PO SCH (20:14)
[2018-06-22] MEDS: METOPROLOL SUCC 24HR ER 100 MG TAB.ER.24H. PO SCH (20:15)
[2018-06-22 23:00] VITALS: BP 97/64
[2018-06-23] MEDS: ALPRAZolam 1 MG TABLET PO PRN ×2 (00:02→19:39)
[2018-06-23 04:19] LABS: BASO % 1 % (0-3); EOS # 0.2 x10^3/uL (0.0-0.7); EOS % 3 % (0-3); HEMOGLOBIN 14.4 g/dL (13.0-17.5); LYMPH # 1.1 x10^3/uL (1.0-4.8); LYMPH % 22 % (24-48); MEAN CORPUSCULAR HEMOGLOBIN 30 pg (25-35); MEAN CORPUSCULAR HGB CONC 34 g/dL (31-37); MEAN CORPUSCULAR VOLUME 88 fL (79-100); MONO # 0.5 x10^3/uL (0.0-1.1); MONO % 11 % (0-9); NEUT # 3.2 x10^3uL (1.8-7.7); NEUT % 63 % (31-73); PLATELET COUNT 159 x10^3/uL (140-400); RED BLOOD COUNT 4.88 x10^6/uL (4.30-5.70); RED CELL DISTRIBUTION WIDTH 14.4 % (11.5-14.5)
[2018-06-23 05:18] LABS: CALCIUM 9.3 mg/dL (8.5-10.1); CREATININE 0.9 mg/dL (0.7-1.3); GFR 87.3; POTASSIUM 4.3 mmol/L (3.5-5.1)
[2018-06-23 07:00] VITALS: BP 132/85
[2018-06-23] MEDS: METOCLOPRAMIDE 10 MG TABLET. PO SCH ×4 (08:06→21:02)
[2018-06-23] MEDS: HYDROcodone/APAP 10/325 1 TAB TABLET PO PRN (08:06)
[2018-06-23] MEDS: MORPHINE SULFATE 2 MG/ML VIAL. IV PRN ×2 (08:15→21:01)
--- NOTE | 2018-06-23 08:18 | PDOC ---
SUBJECTIVE Subjective S: plts nl today, will go ahead and hold off on BMBx, does think an ant idepressant may help O: Physical exam: Gen.: thin man, resting in bed Lungs: Breathing comfortably Extremities: No edema Skin: Warm and dry Labs: Platelets 159, LDH normal, hepatitis panel neg Rads: CT chest abdomen and pelvis showed bilateral fibrotic lung changes, coronary calcification, right middle lobe infiltrate, recommend two-month follow-up, pretracheal lymph node about 1 cm, mild dilation of distal small bowel at the anastomotic site, in right lower quadrant (mild splenomegaly seen 01/11 at ) Assessment and Plan: He is a 57-year-old male with admission for mental status changes, weight loss. His RN noted yesterday he had objectively lost about 50 lbs w/in the last 2 yrs over about a 6 mos period, but he's been relatively stable for quite some time. Has an impressive amount of apathy, does admit to having depression, was given amitryptyline but feels like he's still depressed (and certainly seems so), would rec consider tx for depression, will w/hold BMBx since plt's normalized and splenomegaly has only been mild. CT w/o obvious malignancy though f/u CT chest in 2 mos is warranted after tx of RML infiltrate. Weight loss: His nurse checked his records and believes that there was more likely a 50 pound weight loss that has been stable recently Thrombocytopenia: LDH normal, hepatitis panel neg, plt's have normalized, looking back, they were mildly low when admitted in Dec 2017 to as well but have been normal o/cisneros, may be improvement w/ tx of underlying infection Prophylaxis: on lovenox, (history of recent right upper extremity superficial venous thrombosis) Right middle lobe pneumonia: Getting antibiotics, we will see him after his two- month follow-up CT to ensure no other w/u for malignancy is necessary Drug abuse: Recommend cessation Depression: rec treating through primary care, he is amenable to starting something now, defer to primary, suspect it would help his outlook Disposition: After clinical improvement, we can follow up as an outpatient after f/u CT, we will call to schedule after dc Thank you kindly, and please don't hesitate to call with any further questions. OBJECTIVE Vital Signs Vital Signs Date Time Temp Pulse Resp B/P (MAP) Pulse Ox O2 Delivery O2 Flow Rate FiO2 4/30/19 08:06 14 06/23/18 07:00 97.7 65 16 132/85 (101) 99 Room Air 97.7 06/22/18 23:00 98.6 65 15 97/64 (75) 96 Room Air 98.6 06/22/18 20:15 81 99/72 06/22/18 20:00 Room Air 06/22/18 19:31 Room Air 06/22/18 19:00 98.5 81 17 99/72 (81) 97 Room Air 98.5 06/22/18 17:56 Room Air 06/22/18 17:54 Room Air 06/22/18 16:04 Room Air 06/22/18 13:30 Room Air 06/22/18 12:39 Room Air 06/22/18 12:37 84 130/89 06/22/18 12:36 84 130/89 06/22/18 10:49 98.4 84 20 130/89 (103) 96 Room Air 98.4 06/22/18 09:40 97 06/22/18 09:40 97 06/22/18 08:45 Room Air 06/22/18 08:45 Room Air 06/22/18 08:40 Room Air I & O Intake and Output 06/23/18 07:00 Intake Total 900 ml Output Total 1200 ml Balance -300 ml Intake Oral 900 ml Output Urine Total 1200 ml COMMENT Lab Laboratory Tests Test 06/22/18 20:08 06/23/18 04:05 06/23/18 08:03 Glucose (Fingerstick) 224 mg/dL (70-99) 144 mg/dL (70-99) White Blood Count 5.0 x10^3/uL (4.0-11.0) Red Blood Count 4.88 x10^6/uL (4.30-5.70) Hemoglobin 14.4 g/dL (13.0-17.5) Hematocrit 43.0 % (39.0-53.0) Mean Corpuscular Volume 88 fL (79-100) Mean Corpuscular Hemoglobin 30 pg (25-35) Mean Corpuscular Hemoglobin Concent 34 g/dL (31-37) Red Cell Distribution Width 14.4 % (11.5-14.5) Platelet Count 159 x10^3/uL (140-400) Neutrophils (%) (Auto) 63 % (31-73) Lymphocytes (%) (Auto) 22 % (24-48) Monocytes (%) (Auto) 11 % (0-9) Eosinophils (%) (Auto) 3 % (0-3) Basophils (%) (Auto) 1 % (0-3) Neutrophils # (Auto) 3.2 x10^3uL (1.8-7.7) Lymphocytes # (Auto) 1.1 x10^3/uL (1.0-4.8) Monocytes # (Auto) 0.5 x10^3/uL (0.0-1.1) Eosinophils # (Auto) 0.2 x10^3/uL (0.0-0.7) Basophils # (Auto) 0.0 x10^3/uL (0.0-0.2) Sodium Level 139 mmol/L (136-145) Potassium Level 4.3 mmol/L (3.5-5.1) Chloride Level 102 mmol/L (98-107) Carbon Dioxide Level 29 mmol/L (21-32) Anion Gap 8 (6-14) Blood Urea Nitrogen 15 mg/dL (8-26) Creatinine 0.9 mg/dL (0.7-1.3) Estimated GFR (Cockcroft-Gault) 87.3 Glucose Level 166 mg/dL (70-99) Calcium Level 9.3 mg/dL (8.5-10.1) DAT ESTRELLA MD Jun 23, 2018 08:18
--- NOTE | 2018-06-23 09:26 | PDOC ---
PULMONARY PROGRESS NOTES Subjective BETTER TODAY Vitals Vital Signs Date Time Temp Pulse Resp B/P (MAP) Pulse Ox O2 Delivery O2 Flow Rate FiO2 06/23/18 08:15 14 Room Air 06/23/18 07:00 97.7 65 132/85 (101) 99 97.7 ROS: No Nausea, No Chest Pain, No Abdominal Pain, No Increase Cough Lungs: Wheezing, Crackles Cardiovascular: S1, S2 Abdomen: Soft, Non-tender Neuro Exam: Alert Extremities: No Edema Skin: Warm Labs Laboratory Tests Test 06/21/18 11:02 06/21/18 17:02 06/22/18 04:40 06/22/18 20:08 Glucose (Fingerstick) 195 mg/dL (70-99) 177 mg/dL (70-99) 224 mg/dL (70-99) White Blood Count 5.2 x10^3/uL (4.0-11.0) Red Blood Count 4.94 x10^6/uL (4.30-5.70) Hemoglobin 14.6 g/dL (13.0-17.5) Hematocrit 43.5 % (39.0-53.0) Mean Corpuscular Volume 88 fL (79-100) Mean Corpuscular Hemoglobin 30 pg (25-35) Mean Corpuscular Hemoglobin Concent 34 g/dL (31-37) Red Cell Distribution Width 14.7 % (11.5-14.5) Platelet Count 138 x10^3/uL (140-400) Neutrophils (%) (Auto) 72 % (31-73) Lymphocytes (%) (Auto) 17 % (24-48) Monocytes (%) (Auto) 8 % (0-9) Eosinophils (%) (Auto) 2 % (0-3) Basophils (%) (Auto) 1 % (0-3) Neutrophils # (Auto) 3.8 x10^3uL (1.8-7.7) Lymphocytes # (Auto) 0.9 x10^3/uL (1.0-4.8) Monocytes # (Auto) 0.4 x10^3/uL (0.0-1.1) Eosinophils # (Auto) 0.1 x10^3/uL (0.0-0.7) Basophils # (Auto) 0.0 x10^3/uL (0.0-0.2) Sodium Level 134 mmol/L (136-145) Potassium Level 4.2 mmol/L (3.5-5.1) Chloride Level 98 mmol/L (98-107) Carbon Dioxide Level 26 mmol/L (21-32) Anion Gap 10 (6-14) Blood Urea Nitrogen 15 mg/dL (8-26) Creatinine 0.7 mg/dL (0.7-1.3) Estimated GFR (Cockcroft-Gault) 116.7 Glucose Level 161 mg/dL (70-99) Calcium Level 9.5 mg/dL (8.5-10.1) Test 06/23/18 04:05 06/23/18 08:03 White Blood Count 5.0 x10^3/uL (4.0-11.0) Red Blood Count 4.88 x10^6/uL (4.30-5.70) Hemoglobin 14.4 g/dL (13.0-17.5) Hematocrit 43.0 % (39.0-53.0) Mean Corpuscular Volume 88 fL (79-100) Mean Corpuscular Hemoglobin 30 pg (25-35) Mean Corpuscular Hemoglobin Concent 34 g/dL (31-37) Red Cell Distribution Width 14.4 % (11.5-14.5) Platelet Count 159 x10^3/uL (140-400) Neutrophils (%) (Auto) 63 % (31-73) Lymphocytes (%) (Auto) 22 % (24-48) Monocytes (%) (Auto) 11 % (0-9) Eosinophils (%) (Auto) 3 % (0-3) Basophils (%) (Auto) 1 % (0-3) Neutrophils # (Auto) 3.2 x10^3uL (1.8-7.7) Lymphocytes # (Auto) 1.1 x10^3/uL (1.0-4.8) Monocytes # (Auto) 0.5 x10^3/uL (0.0-1.1) Eosinophils # (Auto) 0.2 x10^3/uL (0.0-0.7) Basophils # (Auto) 0.0 x10^3/uL (0.0-0.2) Sodium Level 139 mmol/L (136-145) Potassium Level 4.3 mmol/L (3.5-5.1) Chloride Level 102 mmol/L (98-107) Carbon Dioxide Level 29 mmol/L (21-32) Anion Gap 8 (6-14) Blood Urea Nitrogen 15 mg/dL (8-26) Creatinine 0.9 mg/dL (0.7-1.3) Estimated GFR (Cockcroft-Gault) 87.3 Glucose Level 166 mg/dL (70-99) Calcium Level 9.3 mg/dL (8.5-10.1) Glucose (Fingerstick) 144 mg/dL (70-99) Laboratory Tests Test 06/22/18 20:08 06/23/18 04:05 06/23/18 08:03 Glucose (Fingerstick) 224 mg/dL (70-99) 144 mg/dL (70-99) White Blood Count 5.0 x10^3/uL (4.0-11.0) Red Blood Count 4.88 x10^6/uL (4.30-5.70) Hemoglobin 14.4 g/dL (13.0-17.5) Hematocrit 43.0 % (39.0-53.0) Mean Corpuscular Volume 88 fL (79-100) Mean Corpuscular Hemoglobin 30 pg (25-35) Mean Corpuscular Hemoglobin Concent 34 g/dL (31-37) Red Cell Distribution Width 14.4 % (11.5-14.5) Platelet Count 159 x10^3/uL (140-400) Neutrophils (%) (Auto) 63 % (31-73) Lymphocytes (%) (Auto) 22 % (24-48) Monocytes (%) (Auto) 11 % (0-9) Eosinophils (%) (Auto) 3 % (0-3) Basophils (%) (Auto) 1 % (0-3) Neutrophils # (Auto) 3.2 x10^3uL (1.8-7.7) Lymphocytes # (Auto) 1.1 x10^3/uL (1.0-4.8) Monocytes # (Auto) 0.5 x10^3/uL (0.0-1.1) Eosinophils # (Auto) 0.2 x10^3/uL (0.0-0.7) Basophils # (Auto) 0.0 x10^3/uL (0.0-0.2) Sodium Level 139 mmol/L (136-145) Potassium Level 4.3 mmol/L (3.5-5.1) Chloride Level 102 mmol/L (98-107) Carbon Dioxide Level 29 mmol/L (21-32) Anion Gap 8 (6-14) Blood Urea Nitrogen 15 mg/dL (8-26) Creatinine 0.9 mg/dL (0.7-1.3) Estimated GFR (Cockcroft-Gault) 87.3 Glucose Level 166 mg/dL (70-99) Calcium Level 9.3 mg/dL (8.5-10.1) Medications Active Scripts Medications Dose Route/Sig Max Daily Dose Days Date Category Lantus Solostar (Insulin Glargine,Hum.rec.anlog) 100 Unit/1 Ml Insuln.pen 10 Units SQ QHS 30 03/23/18 Rx Carafate (Sucralfate) 1 Gm Tablet 1 Gm PO BIDWMEALS 30 03/23/18 Rx Percocet 5-325 Mg Tablet (Oxycodone/Acetaminophen) 1 Each Tablet 1 Tab PO PRN Q6HRS PRN 6 03/23/18 Rx Mag-Oxide (Magnesium Oxide) 400 Mg Tablet 1 Tab PO BID 30 03/23/18 Rx Cyclobenzaprine Hcl 10 Mg Tablet 10 Mg PO TID 03/12/18 Rx Alprazolam 1 Mg Tablet 1 Tab PO TID PRN 02/27/18 Reported Polyethylene Glycol 3350 17 Gm Powd.pack 17 Gm PO PRN DAILY PRN 10 02/12/18 Rx Colace (Docusate Sodium) 100 Mg Capsule 100 Mg PO BID66 28 02/12/18 Rx Dicyclomine Hcl 10 Mg Capsule 20 Mg PO PRN QID PRN 14 01/29/18 Rx Lisinopril 10 Mg Tablet 1 Tab PO DAILY 01/27/18 Reported Amitriptyline Hcl 10 Mg Tablet 2 Tab PO QHS 01/27/18 Reported Potassium Chloride 20 Meq Tablet.er 20 Meq PO DAILY 01/27/18 Reported Levetiracetam 500 Mg Tablet 1 Tab PO BID 01/27/18 Reported Gabapentin (Gabapentin) 300 Mg Capsule 300 Mg PO TID 01/27/18 Reported Atorvastatin Calcium 80 Mg Tablet 1 Tab PO DAILY 01/27/18 Reported Metoprolol Succinate ( Xl ) (Metoprolol Succinate) 100 Mg Tab.er.24h 1 Tab PO DAILY 01/27/18 Reported Spironolactone 25 Mg Tablet 1 Tab PO DAILY 09/25/16 Reported Amiodarone Hcl 200 Mg Tablet 1 Tab PO DAILY 09/25/16 Reported Impression . IMPRESSION: 1. Abnormal x-ray, suspect pneumonia. 2. Tobacco dependent. 3. Acute exacerbation of chronic obstructive pulmonary disease. 4. Metabolic toxic encephalopathy. 5. Polysubstance use. The patient tested positive for cannabinoids, benzodiazepines, amphetamines and opiates. 6. Subjective weight loss. 7. Thrombocytopenia. Plan . WILL CONTINUE THE SAME REPEAT CT IN 2 MONTHS FOLLOW ONC INPUT RC ELIZALDE MD Jun 23, 2018 09:26
[2018-06-23] MEDS: DOCUSATE SODIUM 100 MG CAPSULE. PO SCH (09:30)
[2018-06-23] MEDS: AMIODARONE HCL 200 MG TABLET. PO SCH (09:32)
[2018-06-23] MEDS: levETIRAcetam 500 MG TABLET PO SCH ×2 (09:34→21:01)
[2018-06-23] MEDS: LACTOBACILLUS RHAMNOSUS GG 1 CAPSULE. PO SCH ×2 (09:34→21:02)
[2018-06-23] MEDS: POTASSIUM CHLORIDE 10 MEQ TABLET.ER. PO SCH (09:35)
[2018-06-23] MEDS: FUROSEMIDE 20 MG TABLET PO SCH (09:36)
[2018-06-23] MEDS: GABAPENTIN 300 MG CAPSULE. PO SCH ×3 (09:37→21:02)
[2018-06-23] MEDS: LISINOPRIL 10 MG TABLET PO SCH (09:38)
[2018-06-23] MEDS: METOPROLOL SUCC 24HR ER 100 MG TAB.ER.24H. PO SCH ×2 (09:40→21:02)
--- NOTE | 2018-06-23 12:00 | NUR ---
SW phoned PAT team for assessment and evaluation for substance use. Pt is denying substance use but is provided with resources if he chooses to follow up with OP treatment.
--- NOTE | 2018-06-23 12:37 | PDOC ---
PROGRESS NOTES Chief Complaint Chief Complaint impression acute metabolic encephalopathy Altered mental status thrombocytopenia METH ABUSE right middle lobe pneumonia infiltrate posteriorly of the right middle lobe, slightly nodular morphology for which short-term follow-up after treatment advised such as within 2 months. There is other likely fibrotic change of the bilateral hemithoraces. HX median sternotomy. There is coronary calcification. There is borderline enlarged pretracheal node as seen previously. 50 pound weight loss in 6 months, A SEVERE DECLINE suspect metastatic disease CAD s/p CABG 2014. clinically stable. Chronic systolic CHF with ICM; Recent EF 35%, compensated Paroxysmal atrial flutter; hx DM2/HLP H/o substance abuse: meth in the past and marijuana. Potential opioid seeking. AICD in situ: [employer]. Interrogated and no abnormalities reported. 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 PLAN IV ROCEPHIN 1 GM Q 24 HRS PULM CONSULT ONCOLOGY CONSULT BONE MARROW BX DELAYED 44 min pt exam, chart review, > 50% of time spent with exam, chart review, pt care coordination, very guarded prognosis per my chart review DUE TO SUBSTANCE ABUSE, NONCOMPLIANCE History of Present Illness History of Present Illness Patient resting comfortably in bed, no apparent distress. Reviewed pictures of right hip bulla with RN. thrombocytopenia Vitals Vitals Vital Signs Date Time Temp Pulse Resp B/P (MAP) Pulse Ox O2 Delivery O2 Flow Rate FiO2 06/23/18 09:41 14 96 Room Air 06/23/18 09:40 68 132/85 06/23/18 07:00 97.7 97.7 Physical Exam General: Alert, Oriented X3, Cooperative, mild distress, Other (seemed really annoyed when I asked questions or tried to examine him. He did not even roll onto his back, but stayed rolled on his side facing away from me and answered q uestions from there.) Heart: Regular rate, Normal S1, Normal S2, No murmurs Lungs: Wheezing, Crackles Abdomen: Soft, No tenderness Extremities: No cyanosis, Other (the right hip has a aqua cell foam dressing which I lifted up to observe a blister that is approximately 8 x 8 cm. It has serous but not bloody fluid. Unclear etiology. Mild hip pain with range of motion but the blister 10 cm distal to the greater trochanter, not over the greater trochanter, an unusual location for traumatic contact. ) Skin: No rashes, No significant lesion Labs LABS EXAM: Pelvis and right hip, 2 views. HISTORY: Pain and popping. COMPARISON: None. FINDINGS: A frontal view the pelvis and frog-leg view the right hip are obtained. There is no fracture, dislocation or subluxation. There is slight decreased femoral head-neck offset with degenerative subchondral cyst formation, a finding suggesting chronic hip impingement. IMPRESSION: 1. No acute osseous finding. 2. Findings suggesting chronic femoroacetabular impingement. Electronically signed by: Eunice Garcia MD (06/22/2018 1:37 PM) [facility] Laboratory Tests Test 06/22/18 20:08 06/23/18 04:05 06/23/18 08:03 Glucose (Fingerstick) 224 mg/dL (70-99) 144 mg/dL (70-99) White Blood Count 5.0 x10^3/uL (4.0-11.0) Red Blood Count 4.88 x10^6/uL (4.30-5.70) Hemoglobin 14.4 g/dL (13.0-17.5) Hematocrit 43.0 % (39.0-53.0) Mean Corpuscular Volume 88 fL (79-100) Mean Corpuscular Hemoglobin 30 pg (25-35) Mean Corpuscular Hemoglobin Concent 34 g/dL (31-37) Red Cell Distribution Width 14.4 % (11.5-14.5) Platelet Count 159 x10^3/uL (140-400) Neutrophils (%) (Auto) 63 % (31-73) Lymphocytes (%) (Auto) 22 % (24-48) Monocytes (%) (Auto) 11 % (0-9) Eosinophils (%) (Auto) 3 % (0-3) Basophils (%) (Auto) 1 % (0-3) Neutrophils # (Auto) 3.2 x10^3uL (1.8-7.7) Lymphocytes # (Auto) 1.1 x10^3/uL (1.0-4.8) Monocytes # (Auto) 0.5 x10^3/uL (0.0-1.1) Eosinophils # (Auto) 0.2 x10^3/uL (0.0-0.7) Basophils # (Auto) 0.0 x10^3/uL (0.0-0.2) Sodium Level 139 mmol/L (136-145) Potassium Level 4.3 mmol/L (3.5-5.1) Chloride Level 102 mmol/L (98-107) Carbon Dioxide Level 29 mmol/L (21-32) Anion Gap 8 (6-14) Blood Urea Nitrogen 15 mg/dL (8-26) Creatinine 0.9 mg/dL (0.7-1.3) Estimated GFR (Cockcroft-Gault) 87.3 Glucose Level 166 mg/dL (70-99) Calcium Level 9.3 mg/dL (8.5-10.1) Assessment and Plan Assessmemt and Plan Problems Medical Problems: (1) Altered mental status Status: Acute (2) Right lower lobe pulmonary infiltrate Status: Acute Comment Review of Relevant I have reviewed the following items otis (where applicable) has been applied. Labs Laboratory Tests Test 06/21/18 17:02 06/22/18 04:40 06/22/18 20:08 06/23/18 04:05 Glucose (Fingerstick) 177 mg/dL (70-99) 224 mg/dL (70-99) White Blood Count 5.2 x10^3/uL (4.0-11.0) 5.0 x10^3/uL (4.0-11.0) Red Blood Count 4.94 x10^6/uL (4.30-5.70) 4.88 x10^6/uL (4.30-5.70) Hemoglobin 14.6 g/dL (13.0-17.5) 14.4 g/dL (13.0-17.5) Hematocrit 43.5 % (39.0-53.0) 43.0 % (39.0-53.0) Mean Corpuscular Volume 88 fL (79-100) 88 fL (79-100) Mean Corpuscular Hemoglobin 30 pg (25-35) 30 pg (25-35) Mean Corpuscular Hemoglobin Concent 34 g/dL (31-37) 34 g/dL (31-37) Red Cell Distribution Width 14.7 % (11.5-14.5) 14.4 % (11.5-14.5) Platelet Count 138 x10^3/uL (140-400) 159 x10^3/uL (140-400) Neutrophils (%) (Auto) 72 % (31-73) 63 % (31-73) Lymphocytes (%) (Auto) 17 % (24-48) 22 % (24-48) Monocytes (%) (Auto) 8 % (0-9) 11 % (0-9) Eosinophils (%) (Auto) 2 % (0-3) 3 % (0-3) Basophils (%) (Auto) 1 % (0-3) 1 % (0-3) Neutrophils # (Auto) 3.8 x10^3uL (1.8-7.7) 3.2 x10^3uL (1.8-7.7) Lymphocytes # (Auto) 0.9 x10^3/uL (1.0-4.8) 1.1 x10^3/uL (1.0-4.8) Monocytes # (Auto) 0.4 x10^3/uL (0.0-1.1) 0.5 x10^3/uL (0.0-1.1) Eosinophils # (Auto) 0.1 x10^3/uL (0.0-0.7) 0.2 x10^3/uL (0.0-0.7) Basophils # (Auto) 0.0 x10^3/uL (0.0-0.2) 0.0 x10^3/uL (0.0-0.2) Sodium Level 134 mmol/L (136-145) 139 mmol/L (136-145) Potassium Level 4.2 mmol/L (3.5-5.1) 4.3 mmol/L (3.5-5.1) Chloride Level 98 mmol/L (98-107) 102 mmol/L (98-107) Carbon Dioxide Level 26 mmol/L (21-32) 29 mmol/L (21-32) Anion Gap 10 (6-14) 8 (6-14) Blood Urea Nitrogen 15 mg/dL (8-26) 15 mg/dL (8-26) Creatinine 0.7 mg/dL (0.7-1.3) 0.9 mg/dL (0.7-1.3) Estimated GFR (Cockcroft-Gault) 116.7 87.3 Glucose Level 161 mg/dL (70-99) 166 mg/dL (70-99) Calcium Level 9.5 mg/dL (8.5-10.1) 9.3 mg/dL (8.5-10.1) Test 06/23/18 08:03 Glucose (Fingerstick) 144 mg/dL (70-99) Laboratory Tests Test 06/22/18 20:08 06/23/18 04:05 06/23/18 08:03 Glucose (Fingerstick) 224 mg/dL (70-99) 144 mg/dL (70-99) White Blood Count 5.0 x10^3/uL (4.0-11.0) Red Blood Count 4.88 x10^6/uL (4.30-5.70) Hemoglobin 14.4 g/dL (13.0-17.5) Hematocrit 43.0 % (39.0-53.0) Mean Corpuscular Volume 88 fL (79-100) Mean Corpuscular Hemoglobin 30 pg (25-35) Mean Corpuscular Hemoglobin Concent 34 g/dL (31-37) Red Cell Distribution Width 14.4 % (11.5-14.5) Platelet Count 159 x10^3/uL (140-400) Neutrophils (%) (Auto) 63 % (31-73) Lymphocytes (%) (Auto) 22 % (24-48) Monocytes (%) (Auto) 11 % (0-9) Eosinophils (%) (Auto) 3 % (0-3) Basophils (%) (Auto) 1 % (0-3) Neutrophils # (Auto) 3.2 x10^3uL (1.8-7.7) Lymphocytes # (Auto) 1.1 x10^3/uL (1.0-4.8) Monocytes # (Auto) 0.5 x10^3/uL (0.0-1.1) Eosinophils # (Auto) 0.2 x10^3/uL (0.0-0.7) Basophils # (Auto) 0.0 x10^3/uL (0.0-0.2) Sodium Level 139 mmol/L (136-145) Potassium Level 4.3 mmol/L (3.5-5.1) Chloride Level 102 mmol/L (98-107) Carbon Dioxide Level 29 mmol/L (21-32) Anion Gap 8 (6-14) Blood Urea Nitrogen 15 mg/dL (8-26) Creatinine 0.9 mg/dL (0.7-1.3) Estimated GFR (Cockcroft-Gault) 87.3 Glucose Level 166 mg/dL (70-99) Calcium Level 9.3 mg/dL (8.5-10.1) Microbiology 06/21/18 Blood Culture - Preliminary, Resulted NO GROWTH AFTER 2 DAYS Medications Current Medications Sodium Chloride 1,000 ml @ 1,000 mls/hr 1X ONCE IV Last administered on 06/20/18 15:49; Start 06/20/18 at 15:30; Stop 06/20/18 at 16:29; Status DC Ceftriaxone Sodium (Rocephin) 1 gm 1X ONCE IVP Last administered on 06/20/18 18:52; Start 06/20/18 at 19:00; Stop 06/20/18 at 19:01; Status DC Ondansetron HCl (Zofran) 4 mg PRN Q8HRS PRN IV NAUSEA/VOMITING Last administered on 06/21/18at 13:52; Start 06/20/18 at 19:45; Stop 06/21/18 at 19:44; Status DC Morphine Sulfate (Morphine Sulfate) 2 mg PRN Q2HR PRN IV PAIN Last administered on 06/21/18 18:33; Start 06/20/18 at 19:45; Stop 06/21/18 at 19:44; Status DC Acetaminophen (Tylenol) 650 mg PRN Q4HRS PRN PO FEVER; Start 06/20/18 at 19:45; Stop 06/21/18 at 19:44; Status DC Enoxaparin Sodium (Lovenox 40mg Syringe) 40 mg Q24H SQ Last administered on 06/21/18at 15:34; Start 06/21/18 at 16:00 Ceftriaxone Sodium (Rocephin) 1 gm Q24H IVP Last administered on 06/22/18 20:12; Start 06/21/18 at 19:00 Iohexol (Omnipaque 300 Mg/ml) 75 ml 1X ONCE IV Last administered on 06/21/18at 14:26; Start 06/21/18 at 13:30; Stop 06/21/18 at 13:31; Status DC Iohexol (Omnipaque 240 Mg/ml) 30 ml 1X ONCE PO Last administered on 06/21/18 13:15; Start 06/21/18 at 13:15; Stop 06/21/18 at 13:17; Status DC Info (CONTRAST GIVEN -- Rx MONITORING) 1 each PRN DAILY PRN MC SEE COMMENTS; Start 06/21/18 at 13:30; Stop 06/23/18 at 13:29 Lactobacillus Rhamnosus (Culturelle) 1 cap BID PO Last administered on 06/23/18 09:34; Start 06/21/18 at 21:00 Morphine Sulfate (Morphine Sulfate) 2 mg PRN Q4HRS PRN IV SEVERE PAIN Last administered on 06/23/18 08:15; Start 06/21/18 at 21:15 Oxycodone/ Acetaminophen (Percocet 5/325) 1 tab PRN Q6HRS PRN PO MODERATE PAIN Last administered on 06/22/18 16:04; Start 06/21/18 at 21:15 Amiodarone HCl (Cordarone) 200 mg DAILY PO Last administered on 06/23/18 09:32; Start 06/22/18 at 13:00 Amitriptyline HCl (Elavil) 25 mg QHS PO Last administered on 06/22/18 20:14; Start 06/22/18 at 21:00 Docusate Sodium (Colace) 100 mg DAILY PO Last administered on 06/23/18 09:30; Start 06/22/18 at 13:00 Furosemide (Lasix) 20 mg DAILY PO Last administered on 06/23/18 09:36; Start 06/22/18 at 13:00 Gabapentin (Neurontin) 300 mg TID PO Last administered on 06/23/18 09:37; Start 06/22/18 at 14:00 Acetaminophen/ Hydrocodone Bitart (Lortab 10/325) 1 tab PRN BID PRN PO SEVERE PAIN Last administered on 06/23/18 08:06; Start 06/22/18 at 12:15 Lisinopril (Prinivil) 10 mg DAILY PO Last administered on 06/23/18 09:38; Start 06/22/18 at 13:00 Metoclopramide HCl (Reglan) 10 mg QIDACHS PO Last administered on 06/23/18 08:06; Start 06/22/18 at 16:30 Metoprolol Succinate (Toprol Xl) 100 mg BID PO Last administered on 06/23/18 09:40; Start 06/22/18 at 21:00 Potassium Chloride (Klor-Con) 10 meq DAILY PO Last administered on 06/23/18 09:35; Start 06/22/18 at 13:00 Tizanidine HCl (Zanaflex) 4 mg PRN Q12HRS PRN PO MUSCLE SPASMS; Start 06/22/18 at 12:15 Levetiracetam (Keppra) 500 mg BID PO Last administered on 06/23/18 09:34; Start 06/22/18 at 21:00 Ondansetron HCl (Zofran) 4 mg PRN Q4HRS PRN IV NAUSEA/VOMITING Last administered on 06/22/18 17:56; Start 06/22/18 at 12:45 Alprazolam (Xanax) 1 mg PRN TID PRN PO ANXIETY / AGITATION Last administered on 06/23/18 00:02; Start 06/22/18 at 20:45 Active Scripts Active Reported Keppra (Levetiracetam) 500 Mg Tablet 500 Mg PO BID Tizanidine Hcl 4 Mg Tablet 1 Tab PO TID Docusate Sodium 100 Mg Capsule 1 Cap PO DAILY Furosemide 20 Mg Tablet 20 Mg PO DAILY Hydrocodone-Apap 10-325 (Hydrocodone Bit/Acetaminophen) 1 Tab Tablet 1 Tab PO BID PRN Metoclopramide Hcl 10 Mg Tablet 10 Mg PO QIDACHS Janumet 50-1,000 Mg Tablet (Sitagliptin Phos/Metformin Hcl) 1 Each Tablet 2 Each PO DAILYWSUP Amitriptyline Hcl 25 Mg Tablet 1 Tab PO QHS Potassium Chloride 10 Meq Tablet.er 10 Meq PO DAILY Alprazolam 1 Mg Tablet 1 Tab PO TID PRN Lisinopril 10 Mg Tablet 1 Tab PO DAILY Gabapentin (Gabapentin) 300 Mg Capsule 300 Mg PO TID Atorvastatin Calcium 80 Mg Tablet 1 Tab PO DAILY Metoprolol Succinate ( Xl ) (Metoprolol Succinate) 100 Mg Tab.er.24h 1 Tab PO BID Amiodarone Hcl 200 Mg Tablet 1 Tab PO DAILY Vitals/I & O Vital Sign - Last 24 Hours 06/22/18 06/22/18 06/22/18 06/22/18 12:39 16:04 17:54 17:56 O2 Delivery Room Air Room Air Room Air Room Air 06/22/18 06/22/18 06/22/18 06/22/18 19:00 19:31 20:00 20:15 Temp 98.5 98.5 Pulse 81 81 Resp 17 B/P (MAP) 99/72 (81) 99/72 Pulse Ox 97 O2 Delivery Room Air Room Air Room Air 06/22/18 06/23/18 06/23/18 06/23/18 23:00 07:00 08:00 08:06 Temp 98.6 97.7 98.6 97.7 Pulse 65 65 Resp 15 16 14 B/P (MAP) 97/64 (75) 132/85 (101) Pulse Ox 96 99 O2 Delivery Room Air Room Air Room Air 06/23/18 06/23/18 06/23/18 06/23/18 08:15 09:28 09:32 09:38 Pulse 68 68 Resp 14 14 B/P (MAP) 132/85 132/85 Pulse Ox 96 O2 Delivery Room Air 06/23/18 06/23/18 09:40 09:41 Pulse 68 Resp 14 B/P (MAP) 132/85 Pulse Ox 96 O2 Delivery Room Air Intake and Output 06/22/18 06/22/18 06/23/18 15:00 23:00 07:00 Intake Total 300 ml 300 ml 300 ml Output Total 950 ml 250 ml Balance -650 ml 300 ml 50 ml SARAH RUDD MD Jun 23, 2018 12:37
[2018-06-23] MEDS: NICOTINE 21MG PATCH. TD SCH (13:00)
[2018-06-23] MEDS: SERTRALINE 25 MG TABLET. PO SCH (15:00)
[2018-06-23] MEDS: ENOXAPARIN 40 MG/0.4 ML SYRINGE. SQ SCH (16:00)
[2018-06-23] MEDS: cefTRIAXone IV Push 1 GM VIAL. IVP SCH (18:37)
[2018-06-23 19:00] VITALS: BP 129/91
--- NOTE | 2018-06-23 19:24 | NUR ---
See paper MAR for administered day shift meds. [facility] down
[2018-06-23] MEDS: oxyCODONE/APAP 5/325 1 TAB TABLET PO PRN (19:40)
[2018-06-23] MEDS: AMITRIPTYLINE HCL 25 MG TABLET. PO SCH (21:02)
[2018-06-23 23:20] VITALS: BP 116/78
[2018-06-24] MEDS: MORPHINE SULFATE 2 MG/ML VIAL. IV PRN ×5 (00:26→22:53)
[2018-06-24 03:10] VITALS: BP 102/68
[2018-06-24] MEDS: oxyCODONE/APAP 5/325 1 TAB TABLET PO PRN ×2 (03:52→20:21)
--- NOTE | 2018-06-24 06:04 | CONS ---
DATE OF CONSULTATION: 06/23/2018 REQUESTING PHYSICIAN: Dr. Isabel. REASON FOR CONSULTATION: Pneumonia. HISTORY OF PRESENT ILLNESS: This is a 57-year-old gentleman who came in for is really unclear. He apparently says that he had a syncopal episode, very weak, also reportedly encephalopathic and he had 100 pounds weight loss. The patient is alert, awake, able to walk. He did have a CT chest, abdomen and pelvis, which showed pneumonia. The patient has night sweats. The patient does have shortness of breath with activity. He does not have much cough. The patient does have some nausea and always GI upset that he is not able to eat, but whenever he does marijuana that he is able to eat better, also showed up with a blister on the right thigh, which on further questioning, he agrees that he probably had a heating pad. The patient denies any chest pain. Denies any urinary symptoms or bowel symptoms. PAST MEDICAL HISTORY: Positive for multiple medical problems. Right now, computer is not available, but he has had coronary artery disease with coronary artery bypass grafting, anemia, hypertension, diabetes. He does have a pacemaker/AICD. SOCIAL HISTORY: Positive for smoking as he says he quit a week ago. He does do drugs. for 27 years and he denies any other sexual partner. The patient has been homeless. The patient has been in care home multiple times. ALLERGIES: ALLERGIC TO PENICILLIN HE WAS TOLD BY MOTHER, HE DOES NOT KNOW WHAT HAPPENED. CURRENT MEDICATIONS: Reviewed. REVIEW OF SYSTEMS: As per HPI, all other systems reviewed are negative. PHYSICAL EXAMINATION: GENERAL: Alert, oriented gentleman, not in distress. VITAL SIGNS: Stable, afebrile. HEENT: NAD. NECK: Supple, no JVP, no lymphadenopathy. LUNGS: Clear. HEART: S1, S2 regular. ABDOMEN: Benign. EXTREMITIES: No edema or cyanosis. SKIN: The patient does have a blister on the right lateral proximal thigh, clean without any infection. The patient does have a patch of redness on the right axilla, looks like possible tinea. Rest of the skin examination was unremarkable. NEUROLOGIC: Alert, awake and appropriate. No focal neurologic deficit. LABORATORY DATA: White count is normal. BUN and creatinine are normal. CT reviewed. IMPRESSION: 1. Pneumonia. He does not behave like the garden variety, community-acquired pneumonia, a possibility of tuberculosis is there because of his risk factors. 2. Significant weight loss. 3. Drug use. 4. Encephalopathy. RECOMMENDATIONS: Would do a bronchoscopy and cultures, HIV, although appears to be if he is telling the truth, less likely that he has HIV. Supportive care and continue antibiotics. The dictation was done when the computer was not available. Thank you very much, Dr. Isabel, for giving me the opportunity to participate in this patient's care. INGRID JOYCE MD DR: MICHELLE/adal JOB#: [id number] / [id number]
[2018-06-24 07:00] VITALS: BP 126/62
--- NOTE | 2018-06-24 08:07 | PDOC ---
SUBJECTIVE Subjective S: started sertraline, may get bronch for atypical pneumonia O: Physical exam: Gen.: thin man, resting in bed Lungs: Breathing comfortably Extremities: No edema Skin: Warm and dry Labs: Platelets 159, LDH normal, hepatitis panel neg recently Rads: CT chest abdomen and pelvis showed bilateral fibrotic lung changes, coronary calcification, right middle lobe infiltrate, recommend two-month follow-up, pretracheal lymph node about 1 cm, mild dilation of distal small bowel at the anastomotic site, in right lower quadrant (mild splenomegaly seen 01/11 at ) Assessment and Plan: He is a 57-year-old male with admission for mental status changes, weight loss, w/ RML infiltrate. His RN noted yesterday he had objectively lost about 50 lbs w/in the last 2 yrs over about a 6 mos period, but he's been relatively stable for quite some time. Has depression, BMBx was considered but opted against since plt's normalized and splenomegaly has only been mild on prior CT scan. CT w/o obvious malignancy though f/u CT chest in 2 mos is warranted after tx of RML infiltrate, however may get bronch. Weight loss: more likely a 50 pound weight loss beginning 2 yrs ago that has been stable recently Thrombocytopenia: LDH normal, hepatitis panel neg, plt's have normalized, looking back, they were mildly low when admitted in Dec 2017 to as well but have been normal o/cisneros, may be improvement w/ tx of underlying infection? Prophylaxis: on lovenox, (history of recent right upper extremity superficial venous thrombosis) Right middle lobe infiltrate: Abx, ID is involved may get bronch (2 mos f/u CT recommended) Drug abuse: Recommend cessation Depression: per primary care, SSRI added Disposition: per others, we can follow up as an outpatient after f/u CT prn, we will call to schedule after dc prn Thank you kindly, and please don't hesitate to call with any further questions. OBJECTIVE Vital Signs Vital Signs Date Time Temp Pulse Resp B/P (MAP) Pulse Ox O2 Delivery O2 Flow Rate FiO2 06/24/18 04:56 18 99 Room Air 06/24/18 03:52 18 99 Room Air 06/24/18 03:10 97.6 62 18 102/68 (79) 99 Room Air 97.6 06/24/18 01:04 18 99 Room Air 06/24/18 00:26 18 99 Room Air 06/23/18 23:20 98.2 64 18 116/78 (91) 99 Room Air 98.2 06/23/18 21:02 73 129/91 06/23/18 21:01 18 96 Room Air 06/23/18 20:18 Room Air 06/23/18 19:40 18 96 Room Air 06/23/18 19:00 97.5 73 18 129/91 (104) 100 Room Air 97.5 06/23/18 09:41 14 96 Room Air 06/23/18 09:40 68 132/85 06/23/18 09:38 68 132/85 06/23/18 09:32 68 132/85 06/23/18 08:15 14 Room Air 06/23/18 08:06 14 I & O Intake and Output 06/24/18 06:59 Intake Total 780 ml Output Total 1100 ml Balance -320 ml Intake Oral 780 ml Output Urine Total 1100 ml # Voids 1 COMMENT Lab Laboratory Tests Test 06/23/18 16:45 06/23/18 20:59 Glucose (Fingerstick) 209 mg/dL (70-99) 236 mg/dL (70-99) DAT ESTRELLA MD June 24, 2018 08:07
[2018-06-24] MEDS: LACTOBACILLUS RHAMNOSUS GG 1 CAPSULE. PO SCH ×2 (08:35→20:18)
[2018-06-24] MEDS: FUROSEMIDE 20 MG TABLET PO SCH (08:35)
[2018-06-24] MEDS: levETIRAcetam 500 MG TABLET PO SCH ×2 (08:35→20:16)
[2018-06-24] MEDS: GABAPENTIN 300 MG CAPSULE. PO SCH ×3 (08:35→20:16)
[2018-06-24] MEDS: LISINOPRIL 10 MG TABLET PO SCH (08:35)
[2018-06-24] MEDS: SERTRALINE 25 MG TABLET. PO SCH (08:35)
[2018-06-24] MEDS: POTASSIUM CHLORIDE 10 MEQ TABLET.ER. PO SCH (08:36)
[2018-06-24] MEDS: METOCLOPRAMIDE 10 MG TABLET. PO SCH ×4 (08:36→20:16)
[2018-06-24] MEDS: AMIODARONE HCL 200 MG TABLET. PO SCH (08:36)
[2018-06-24] MEDS: NICOTINE 21MG PATCH. TD SCH (08:38)
[2018-06-24] MEDS: METOPROLOL SUCC 24HR ER 100 MG TAB.ER.24H. PO SCH ×2 (08:38→20:17)
[2018-06-24] MEDS: DOCUSATE SODIUM 100 MG CAPSULE. PO SCH (08:38)
[2018-06-24 08:52] LABS: BASO % 1 % (0-3); EOS # 0.1 x10^3/uL (0.0-0.7); EOS % 3 % (0-3); HEMATOCRIT 43.9 % (39.0-53.0); HEMOGLOBIN 14.4 g/dL (13.0-17.5); LYMPH # 1.1 x10^3/uL (1.0-4.8); LYMPH % 27 % (24-48); MEAN CORPUSCULAR HEMOGLOBIN 29 pg (25-35); MEAN CORPUSCULAR HGB CONC 33 g/dL (31-37); MEAN CORPUSCULAR VOLUME 89 fL (79-100); MONO # 0.4 x10^3/uL (0.0-1.1); MONO % 11 % (0-9); NEUT # 2.3 x10^3uL (1.8-7.7); NEUT % 59 % (31-73); PLATELET COUNT 183 x10^3/uL (140-400); RED BLOOD COUNT 4.91 x10^6/uL (4.30-5.70); RED CELL DISTRIBUTION WIDTH 14.5 % (11.5-14.5)
[2018-06-24 09:16] LABS: ALBUMIN 3.3 g/dL (3.4-5.0); ALBUMIN/GLOBULIN RATIO 0.8 (1.0-1.7); CALCIUM 9.5 mg/dL (8.5-10.1); CREATININE 1.2 mg/dL (0.7-1.3); GFR 62.6; POTASSIUM 4.6 mmol/L (3.5-5.1); TOTAL BILIRUBIN 0.4 mg/dL (0.2-1.0); TOTAL PROTEIN 7.2 g/dL (6.4-8.2)
[2018-06-24 11:00] VITALS: BP 96/58
--- NOTE | 2018-06-24 11:00 | PDOC ---
PROGRESS NOTES Chief Complaint Chief Complaint impression acute TOXIC metabolic encephalopathy Altered mental status thrombocytopenia, IMPROVING METH ABUSE right middle lobe pneumonia infiltrate posteriorly of the right middle lobe, slightly nodular morphology for which short-term follow-up after treatment advised such as within 2 months. There is other likely fibrotic change of the bilateral hemithoraces. HX median sternotomy. There is coronary calcification. There is borderline enlarged pretracheal node as seen previously. 50 pound weight loss in 6 months, A SEVERE DECLINE suspect metastatic disease CAD s/p CABG 2014. clinically stable. Chronic systolic CHF with ICM; Recent EF 35%, compensated Paroxysmal atrial flutter; hx DM2/HLP H/o substance abuse: meth in the past and marijuana. Potential opioid seeking. AICD in situ: [employer]. Interrogated and no abnormalities reported. 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 POOR fish icer and short term prognosis due to severe substance abuse, high risk of complications with noncompliance PLAN IV ROCEPHIN 1 GM Q 24 HRS PULM CONSULT ONCOLOGY CONSULT BONE MARROW BX DELAYED 06/[address] JOYCE, Prefers a bronch be done soon to exclude mass 47 min pt exam, chart review, > 50% of time spent with exam, chart review, pt care coordination, very guarded prognosis per my chart review DUE TO SUBSTANCE ABUSE, NONCOMPLIANCE History of Present Illness History of Present Illness Patient resting comfortably in bed, no apparent distress. angry at staff at times thrombocytopenia improving Vitals Vitals Vital Signs Date Time Temp Pulse Resp B/P (MAP) Pulse Ox O2 Delivery O2 Flow Rate FiO2 06/24/18 09:20 99 Room Air 06/24/18 08:38 60 126/62 06/24/18 07:00 97.4 20 97.4 Physical Exam General: Alert, Oriented X3, Cooperative, mild distress, Other (seemed really annoyed when I asked questions or tried to examine him. ) Heart: Regular rate, Normal S1, Normal S2, No murmurs Lungs: Wheezing, Crackles Abdomen: Normal bowel sounds, Soft, No tenderness Extremities: No cyanosis, Other (the right hip has a aqua cell foam dressing which I lifted up to observe a blister that is approximately 8 x 8 cm. It has serous but not bloody fluid. Unclear etiology. Mild hip pain with range of motion but the blister 10 cm distal to the greater trochanter, not over the greater trochanter, an unusual location for traumatic contact. ) Skin: No rashes, No significant lesion Labs LABS Laboratory Tests Test 06/23/18 16:45 06/23/18 20:59 06/24/18 07:44 06/24/18 08:35 Glucose (Fingerstick) 209 mg/dL (70-99) 236 mg/dL (70-99) 184 mg/dL (70-99) White Blood Count 4.0 x10^3/uL (4.0-11.0) Red Blood Count 4.91 x10^6/uL (4.30-5.70) Hemoglobin 14.4 g/dL (13.0-17.5) Hematocrit 43.9 % (39.0-53.0) Mean Corpuscular Volume 89 fL (79-100) Mean Corpuscular Hemoglobin 29 pg (25-35) Mean Corpuscular Hemoglobin Concent 33 g/dL (31-37) Red Cell Distribution Width 14.5 % (11.5-14.5) Platelet Count 183 x10^3/uL (140-400) Neutrophils (%) (Auto) 59 % (31-73) Lymphocytes (%) (Auto) 27 % (24-48) Monocytes (%) (Auto) 11 % (0-9) Eosinophils (%) (Auto) 3 % (0-3) Basophils (%) (Auto) 1 % (0-3) Neutrophils # (Auto) 2.3 x10^3uL (1.8-7.7) Lymphocytes # (Auto) 1.1 x10^3/uL (1.0-4.8) Monocytes # (Auto) 0.4 x10^3/uL (0.0-1.1) Eosinophils # (Auto) 0.1 x10^3/uL (0.0-0.7) Basophils # (Auto) 0.0 x10^3/uL (0.0-0.2) Sodium Level 139 mmol/L (136-145) Potassium Level 4.6 mmol/L (3.5-5.1) Chloride Level 100 mmol/L (98-107) Carbon Dioxide Level 35 mmol/L (21-32) Anion Gap 4 (6-14) Blood Urea Nitrogen 26 mg/dL (8-26) Creatinine 1.2 mg/dL (0.7-1.3) Estimated GFR (Cockcroft-Gault) 62.6 BUN/Creatinine Ratio 22 (6-20) Glucose Level 203 mg/dL (70-99) Calcium Level 9.5 mg/dL (8.5-10.1) Total Bilirubin 0.4 mg/dL (0.2-1.0) Aspartate Amino Transf (AST/SGOT) 25 U/L (15-37) Alanine Aminotransferase (ALT/SGPT) 33 U/L (16-63) Alkaline Phosphatase 138 U/L (46-116) Total Protein 7.2 g/dL (6.4-8.2) Albumin 3.3 g/dL (3.4-5.0) Albumin/Globulin Ratio 0.8 (1.0-1.7) Assessment and Plan Assessmemt and Plan Problems Medical Problems: (1) Altered mental status Status: Acute (2) Right lower lobe pulmonary infiltrate Status: Acute Comment Review of Relevant I have reviewed the following items otis (where applicable) has been applied. Labs Laboratory Tests Test 06/22/18 20:08 06/23/18 04:05 06/23/18 08:03 06/23/18 16:45 Glucose (Fingerstick) 224 mg/dL (70-99) 144 mg/dL (70-99) 209 mg/dL (70-99) White Blood Count 5.0 x10^3/uL (4.0-11.0) Red Blood Count 4.88 x10^6/uL (4.30-5.70) Hemoglobin 14.4 g/dL (13.0-17.5) Hematocrit 43.0 % (39.0-53.0) Mean Corpuscular Volume 88 fL (79-100) Mean Corpuscular Hemoglobin 30 pg (25-35) Mean Corpuscular Hemoglobin Concent 34 g/dL (31-37) Red Cell Distribution Width 14.4 % (11.5-14.5) Platelet Count 159 x10^3/uL (140-400) Neutrophils (%) (Auto) 63 % (31-73) Lymphocytes (%) (Auto) 22 % (24-48) Monocytes (%) (Auto) 11 % (0-9) Eosinophils (%) (Auto) 3 % (0-3) Basophils (%) (Auto) 1 % (0-3) Neutrophils # (Auto) 3.2 x10^3uL (1.8-7.7) Lymphocytes # (Auto) 1.1 x10^3/uL (1.0-4.8) Monocytes # (Auto) 0.5 x10^3/uL (0.0-1.1) Eosinophils # (Auto) 0.2 x10^3/uL (0.0-0.7) Basophils # (Auto) 0.0 x10^3/uL (0.0-0.2) Sodium Level 139 mmol/L (136-145) Potassium Level 4.3 mmol/L (3.5-5.1) Chloride Level 102 mmol/L (98-107) Carbon Dioxide Level 29 mmol/L (21-32) Anion Gap 8 (6-14) Blood Urea Nitrogen 15 mg/dL (8-26) Creatinine 0.9 mg/dL (0.7-1.3) Estimated GFR (Cockcroft-Gault) 87.3 Glucose Level 166 mg/dL (70-99) Calcium Level 9.3 mg/dL (8.5-10.1) Test 06/23/18 20:59 06/24/18 07:44 06/24/18 08:35 Glucose (Fingerstick) 236 mg/dL (70-99) 184 mg/dL (70-99) White Blood Count 4.0 x10^3/uL (4.0-11.0) Red Blood Count 4.91 x10^6/uL (4.30-5.70) Hemoglobin 14.4 g/dL (13.0-17.5) Hematocrit 43.9 % (39.0-53.0) Mean Corpuscular Volume 89 fL (79-100) Mean Corpuscular Hemoglobin 29 pg (25-35) Mean Corpuscular Hemoglobin Concent 33 g/dL (31-37) Red Cell Distribution Width 14.5 % (11.5-14.5) Platelet Count 183 x10^3/uL (140-400) Neutrophils (%) (Auto) 59 % (31-73) Lymphocytes (%) (Auto) 27 % (24-48) Monocytes (%) (Auto) 11 % (0-9) Eosinophils (%) (Auto) 3 % (0-3) Basophils (%) (Auto) 1 % (0-3) Neutrophils # (Auto) 2.3 x10^3uL (1.8-7.7) Lymphocytes # (Auto) 1.1 x10^3/uL (1.0-4.8) Monocytes # (Auto) 0.4 x10^3/uL (0.0-1.1) Eosinophils # (Auto) 0.1 x10^3/uL (0.0-0.7) Basophils # (Auto) 0.0 x10^3/uL (0.0-0.2) Sodium Level 139 mmol/L (136-145) Potassium Level 4.6 mmol/L (3.5-5.1) Chloride Level 100 mmol/L (98-107) Carbon Dioxide Level 35 mmol/L (21-32) Anion Gap 4 (6-14) Blood Urea Nitrogen 26 mg/dL (8-26) Creatinine 1.2 mg/dL (0.7-1.3) Estimated GFR (Cockcroft-Gault) 62.6 BUN/Creatinine Ratio 22 (6-20) Glucose Level 203 mg/dL (70-99) Calcium Level 9.5 mg/dL (8.5-10.1) Total Bilirubin 0.4 mg/dL (0.2-1.0) Aspartate Amino Transf (AST/SGOT) 25 U/L (15-37) Alanine Aminotransferase (ALT/SGPT) 33 U/L (16-63) Alkaline Phosphatase 138 U/L (46-116) Total Protein 7.2 g/dL (6.4-8.2) Albumin 3.3 g/dL (3.4-5.0) Albumin/Globulin Ratio 0.8 (1.0-1.7) Laboratory Tests Test 06/23/18 16:45 06/23/18 20:59 06/24/18 07:44 06/24/18 08:35 Glucose (Fingerstick) 209 mg/dL (70-99) 236 mg/dL (70-99) 184 mg/dL (70-99) White Blood Count 4.0 x10^3/uL (4.0-11.0) Red Blood Count 4.91 x10^6/uL (4.30-5.70) Hemoglobin 14.4 g/dL (13.0-17.5) Hematocrit 43.9 % (39.0-53.0) Mean Corpuscular Volume 89 fL (79-100) Mean Corpuscular Hemoglobin 29 pg (25-35) Mean Corpuscular Hemoglobin Concent 33 g/dL (31-37) Red Cell Distribution Width 14.5 % (11.5-14.5) Platelet Count 183 x10^3/uL (140-400) Neutrophils (%) (Auto) 59 % (31-73) Lymphocytes (%) (Auto) 27 % (24-48) Monocytes (%) (Auto) 11 % (0-9) Eosinophils (%) (Auto) 3 % (0-3) Basophils (%) (Auto) 1 % (0-3) Neutrophils # (Auto) 2.3 x10^3uL (1.8-7.7) Lymphocytes # (Auto) 1.1 x10^3/uL (1.0-4.8) Monocytes # (Auto) 0.4 x10^3/uL (0.0-1.1) Eosinophils # (Auto) 0.1 x10^3/uL (0.0-0.7) Basophils # (Auto) 0.0 x10^3/uL (0.0-0.2) Sodium Level 139 mmol/L (136-145) Potassium Level 4.6 mmol/L (3.5-5.1) Chloride Level 100 mmol/L (98-107) Carbon Dioxide Level 35 mmol/L (21-32) Anion Gap 4 (6-14) Blood Urea Nitrogen 26 mg/dL (8-26) Creatinine 1.2 mg/dL (0.7-1.3) Estimated GFR (Cockcroft-Gault) 62.6 BUN/Creatinine Ratio 22 (6-20) Glucose Level 203 mg/dL (70-99) Calcium Level 9.5 mg/dL (8.5-10.1) Total Bilirubin 0.4 mg/dL (0.2-1.0) Aspartate Amino Transf (AST/SGOT) 25 U/L (15-37) Alanine Aminotransferase (ALT/SGPT) 33 U/L (16-63) Alkaline Phosphatase 138 U/L (46-116) Total Protein 7.2 g/dL (6.4-8.2) Albumin 3.3 g/dL (3.4-5.0) Albumin/Globulin Ratio 0.8 (1.0-1.7) Microbiology 06/21/18 Blood Culture - Preliminary, Resulted NO GROWTH AFTER 3 DAYS Medications Current Medications Sodium Chloride 1,000 ml @ 1,000 mls/hr 1X ONCE IV Last administered on 06/20/18 15:49; Start 06/20/18 at 15:30; Stop 06/20/18 at 16:29; Status DC Ceftriaxone Sodium (Rocephin) 1 gm 1X ONCE IVP Last administered on 06/20/18at 18:52; Start 06/20/18 at 19:00; Stop 06/20/18 at 19:01; Status DC Ondansetron HCl (Zofran) 4 mg PRN Q8HRS PRN IV NAUSEA/VOMITING Last administered on 06/21/18 13:52; Start 06/20/18 at 19:45; Stop 06/21/18 at 19:44; Status DC Morphine Sulfate (Morphine Sulfate) 2 mg PRN Q2HR PRN IV PAIN Last administered on 06/21/18 18:33; Start 06/20/18 at 19:45; Stop 06/21/18 at 19:44; Status DC Acetaminophen (Tylenol) 650 mg PRN Q4HRS PRN PO FEVER; Start 06/20/18 at 19:45; Stop 06/21/18 at 19:44; Status DC Enoxaparin Sodium (Lovenox 40mg Syringe) 40 mg Q24H SQ Last administered on 06/21/18at 15:34; Start 06/21/18 at 16:00 Ceftriaxone Sodium (Rocephin) 1 gm Q24H IVP Last administered on 06/23/18 18:37; Start 06/21/18 at 19:00 Iohexol (Omnipaque 300 Mg/ml) 75 ml 1X ONCE IV Last administered on 06/21/18 14:26; Start 06/21/18 at 13:30; Stop 06/21/18 at 13:31; Status DC Iohexol (Omnipaque 240 Mg/ml) 30 ml 1X ONCE PO Last administered on 06/21/18 13:15; Start 06/21/18 at 13:15; Stop 06/21/18 at 13:17; Status DC Info (CONTRAST GIVEN -- Rx MONITORING) 1 each PRN DAILY PRN MC SEE COMMENTS; Start 06/21/18 at 13:30; Stop 06/23/18 at 13:29; Status DC Lactobacillus Rhamnosus (Culturelle) 1 cap BID PO Last administered on 06/24/18 08:35; Start 06/21/18 at 21:00 Morphine Sulfate (Morphine Sulfate) 2 mg PRN Q4HRS PRN IV SEVERE PAIN Last administered on 06/24/18 08:50; Start 06/21/18 at 21:15 Oxycodone/ Acetaminophen (Percocet 5/325) 1 tab PRN Q6HRS PRN PO MODERATE PAIN Last administered on 06/24/18 03:52; Start 06/21/18 at 21:15 Amiodarone HCl (Cordarone) 200 mg DAILY PO Last administered on 06/24/18 08:36; Start 06/22/18 at 13:00 Amitriptyline HCl (Elavil) 25 mg QHS PO Last administered on 06/23/18 21:02; Start 06/22/18 at 21:00 Docusate Sodium (Colace) 100 mg DAILY PO Last administered on 06/24/18 08:38; Start 06/22/18 at 13:00 Furosemide (Lasix) 20 mg DAILY PO Last administered on 06/24/18 08:35; Start 06/22/18 at 13:00 Gabapentin (Neurontin) 300 mg TID PO Last administered on 06/24/18 08:35; Start 06/22/18 at 14:00 Acetaminophen/ Hydrocodone Bitart (Lortab 10/325) 1 tab PRN BID PRN PO SEVERE PAIN Last administered on 06/23/18 08:06; Start 06/22/18 at 12:15 Lisinopril (Prinivil) 10 mg DAILY PO Last administered on 06/24/18 08:35; Start 06/22/18 at 13:00 Metoclopramide HCl (Reglan) 10 mg QIDACHS PO Last administered on 06/24/18 08:36; Start 06/22/18 at 16:30 Metoprolol Succinate (Toprol Xl) 100 mg BID PO Last administered on 06/24/18 08:38; Start 06/22/18 at 21:00 Potassium Chloride (Klor-Con) 10 meq DAILY PO Last administered on 06/24/18 08:36; Start 06/22/18 at 13:00 Tizanidine HCl (Zanaflex) 4 mg PRN Q12HRS PRN PO MUSCLE SPASMS; Start 06/22/18 at 12:15 Levetiracetam (Keppra) 500 mg BID PO Last administered on 06/24/18 08:35; Start 06/22/18 at 21:00 Ondansetron HCl (Zofran) 4 mg PRN Q4HRS PRN IV NAUSEA/VOMITING Last administered on 06/22/18 17:56; Start 06/22/18 at 12:45 Alprazolam (Xanax) 1 mg PRN TID PRN PO ANXIETY / AGITATION Last administered on 06/23/18 19:39; Start 06/22/18 at 20:45 Nicotine (Nicoderm Cq 21mg) 1 patch DAILY TD Last administered on 06/24/18 08:38; Start 06/23/18 at 13:00 Sertraline HCl (Zoloft) 25 mg DAILY PO Last administered on 06/24/18 08:35; Start 06/23/18 at 15:00 Active Scripts Active Reported Keppra (Levetiracetam) 500 Mg Tablet 500 Mg PO BID Tizanidine Hcl 4 Mg Tablet 1 Tab PO TID Docusate Sodium 100 Mg Capsule 1 Cap PO DAILY Furosemide 20 Mg Tablet 20 Mg PO DAILY Hydrocodone-Apap 10-325 (Hydrocodone Bit/Acetaminophen) 1 Tab Tablet 1 Tab PO BID PRN Metoclopramide Hcl 10 Mg Tablet 10 Mg PO QIDACHS Janumet 50-1,000 Mg Tablet (Sitagliptin Phos/Metformin Hcl) 1 Each Tablet 2 Each PO DAILYWSUP Amitriptyline Hcl 25 Mg Tablet 1 Tab PO QHS Potassium Chloride 10 Meq Tablet.er 10 Meq PO DAILY Alprazolam 1 Mg Tablet 1 Tab PO TID PRN Lisinopril 10 Mg Tablet 1 Tab PO DAILY Gabapentin (Gabapentin) 300 Mg Capsule 300 Mg PO TID Atorvastatin Calcium 80 Mg Tablet 1 Tab PO DAILY Metoprolol Succinate ( Xl ) (Metoprolol Succinate) 100 Mg Tab.er.24h 1 Tab PO BID Amiodarone Hcl 200 Mg Tablet 1 Tab PO DAILY Vitals/I & O Vital Sign - Last 24 Hours 06/23/18 06/23/18 06/23/18 06/23/18 19:00 19:40 20:18 21:01 Temp 97.5 97.5 Pulse 73 Resp 18 18 18 B/P (MAP) 129/91 (104) Pulse Ox 100 96 96 O2 Delivery Room Air Room Air Room Air Room Air 06/23/18 06/23/18 06/24/18 06/24/18 21:02 23:20 00:26 01:04 Temp 98.2 98.2 Pulse 73 64 Resp 18 18 18 B/P (MAP) 129/91 116/78 (91) Pulse Ox 99 99 O2 Delivery Room Air Room Air 06/24/18 06/24/18 06/24/18 06/24/18 03:10 03:52 04:56 07:00 Temp 97.6 97.4 97.6 97.4 Pulse 62 60 Resp 18 18 18 20 B/P (MAP) 102/68 (79) 126/62 (83) Pulse Ox 99 99 99 99 O2 Delivery Room Air Room Air Room Air Room Air 06/24/18 06/24/18 06/24/18 06/24/18 08:35 08:36 08:38 08:50 Pulse 60 60 60 B/P (MAP) 126/62 126/62 126/62 O2 Delivery Room Air 06/24/18 09:20 Pulse Ox 99 O2 Delivery Room Air Intake and Output 0 06/23/18 06/23/18 06/24/18 14:59 22:59 06:59 Intake Total 180 ml 0 ml 600 ml Output Total 700 ml 400 ml Balance -520 ml -400 ml 600 ml SARAH RUDD MD June 24, 2018 11:00
--- NOTE | 2018-06-24 11:22 | PDOC ---
Infectious Disease Note Subjective Subjective pt is feeling good ROS ROS no n/v/d/sob Vital Sign Vital Signs Vital Signs Date Time Temp Pulse Resp B/P (MAP) Pulse Ox O2 Delivery O2 Flow Rate FiO2 06/24/18 09:20 99 Room Air 06/24/18 08:38 60 126/62 06/24/18 07:00 97.4 20 97.4 Physical Exam PHYSICAL EXAM GENERAL: Alert, oriented gentleman, not in distress. VITAL SIGNS: Stable, afebrile. HEENT: NAD. NECK: Supple, no JVP, no lymphadenopathy. LUNGS: Clear. HEART: S1, S2 regular. ABDOMEN: Benign. EXTREMITIES: No edema or cyanosis. SKIN: The patient does have a blister on the right lateral proximal thigh, clean without any infection. The patient does have a patch of redness on the right axilla, looks like possible tinea. Rest of the skin examination was unremarkable. NEUROLOGIC: Alert, awake and appropriate. No focal neurologic deficit. Labs Lab Laboratory Tests Test 06/23/18 16:45 06/23/18 20:59 06/24/18 07:44 06/24/18 08:35 Glucose (Fingerstick) 209 mg/dL (70-99) 236 mg/dL (70-99) 184 mg/dL (70-99) White Blood Count 4.0 x10^3/uL (4.0-11.0) Red Blood Count 4.91 x10^6/uL (4.30-5.70) Hemoglobin 14.4 g/dL (13.0-17.5) Hematocrit 43.9 % (39.0-53.0) Mean Corpuscular Volume 89 fL (79-100) Mean Corpuscular Hemoglobin 29 pg (25-35) Mean Corpuscular Hemoglobin Concent 33 g/dL (31-37) Red Cell Distribution Width 14.5 % (11.5-14.5) Platelet Count 183 x10^3/uL (140-400) Neutrophils (%) (Auto) 59 % (31-73) Lymphocytes (%) (Auto) 27 % (24-48) Monocytes (%) (Auto) 11 % (0-9) Eosinophils (%) (Auto) 3 % (0-3) Basophils (%) (Auto) 1 % (0-3) Neutrophils # (Auto) 2.3 x10^3uL (1.8-7.7) Lymphocytes # (Auto) 1.1 x10^3/uL (1.0-4.8) Monocytes # (Auto) 0.4 x10^3/uL (0.0-1.1) Eosinophils # (Auto) 0.1 x10^3/uL (0.0-0.7) Basophils # (Auto) 0.0 x10^3/uL (0.0-0.2) Sodium Level 139 mmol/L (136-145) Potassium Level 4.6 mmol/L (3.5-5.1) Chloride Level 100 mmol/L (98-107) Carbon Dioxide Level 35 mmol/L (21-32) Anion Gap 4 (6-14) Blood Urea Nitrogen 26 mg/dL (8-26) Creatinine 1.2 mg/dL (0.7-1.3) Estimated GFR (Cockcroft-Gault) 62.6 BUN/Creatinine Ratio 22 (6-20) Glucose Level 203 mg/dL (70-99) Calcium Level 9.5 mg/dL (8.5-10.1) Total Bilirubin 0.4 mg/dL (0.2-1.0) Aspartate Amino Transf (AST/SGOT) 25 U/L (15-37) Alanine Aminotransferase (ALT/SGPT) 33 U/L (16-63) Alkaline Phosphatase 138 U/L (46-116) Total Protein 7.2 g/dL (6.4-8.2) Albumin 3.3 g/dL (3.4-5.0) Albumin/Globulin Ratio 0.8 (1.0-1.7) Micro Microbiology 06/21/18 Blood Culture - Preliminary, Resulted NO GROWTH AFTER 3 DAYS Objective Assessment 1. Pneumonia. He does not behave like the garden variety, community-acquired pneumonia, it is chronic pneumonia, a possibility of tuberculosis is there because of his risk factors. 2. Significant weight loss. rule out infection , but can also sec to drug use. 3. Drug use. 4. Encephalopathy. Plan Plan of Care bronch , inpt or out pt ok can be d/c ed on po antibiotics INGRID JOYCE MD June 24, 2018 11:22
[2018-06-24] MEDS: ALPRAZolam 1 MG TABLET PO PRN ×2 (12:38→22:56)
--- NOTE | 2018-06-24 13:31 | PDOC ---
PULMONARY PROGRESS NOTES Subjective BETTER TODAY Vitals Vital Signs Date Time Temp Pulse Resp B/P (MAP) Pulse Ox O2 Delivery O2 Flow Rate FiO2 06/24/18 12:32 Room Air 06/24/18 11:00 97.3 65 20 96/58 (71) 96 97.3 ROS: No Nausea, No Chest Pain, No Abdominal Pain, No Increase Cough Lungs: Wheezing, Crackles Cardiovascular: S1, S2 Abdomen: Soft, Non-tender Neuro Exam: Alert Extremities: No Edema Skin: Warm Labs Laboratory Tests Test 06/22/18 20:08 06/23/18 04:05 06/23/18 08:03 06/23/18 16:45 Glucose (Fingerstick) 224 mg/dL (70-99) 144 mg/dL (70-99) 209 mg/dL (70-99) White Blood Count 5.0 x10^3/uL (4.0-11.0) Red Blood Count 4.88 x10^6/uL (4.30-5.70) Hemoglobin 14.4 g/dL (13.0-17.5) Hematocrit 43.0 % (39.0-53.0) Mean Corpuscular Volume 88 fL (79-100) Mean Corpuscular Hemoglobin 30 pg (25-35) Mean Corpuscular Hemoglobin Concent 34 g/dL (31-37) Red Cell Distribution Width 14.4 % (11.5-14.5) Platelet Count 159 x10^3/uL (140-400) Neutrophils (%) (Auto) 63 % (31-73) Lymphocytes (%) (Auto) 22 % (24-48) Monocytes (%) (Auto) 11 % (0-9) Eosinophils (%) (Auto) 3 % (0-3) Basophils (%) (Auto) 1 % (0-3) Neutrophils # (Auto) 3.2 x10^3uL (1.8-7.7) Lymphocytes # (Auto) 1.1 x10^3/uL (1.0-4.8) Monocytes # (Auto) 0.5 x10^3/uL (0.0-1.1) Eosinophils # (Auto) 0.2 x10^3/uL (0.0-0.7) Basophils # (Auto) 0.0 x10^3/uL (0.0-0.2) Sodium Level 139 mmol/L (136-145) Potassium Level 4.3 mmol/L (3.5-5.1) Chloride Level 102 mmol/L (98-107) Carbon Dioxide Level 29 mmol/L (21-32) Anion Gap 8 (6-14) Blood Urea Nitrogen 15 mg/dL (8-26) Creatinine 0.9 mg/dL (0.7-1.3) Estimated GFR (Cockcroft-Gault) 87.3 Glucose Level 166 mg/dL (70-99) Calcium Level 9.3 mg/dL (8.5-10.1) Test 06/23/18 20:59 06/24/18 07:44 06/24/18 08:35 06/24/18 11:42 Glucose (Fingerstick) 236 mg/dL (70-99) 184 mg/dL (70-99) 288 mg/dL (70-99) White Blood Count 4.0 x10^3/uL (4.0-11.0) Red Blood Count 4.91 x10^6/uL (4.30-5.70) Hemoglobin 14.4 g/dL (13.0-17.5) Hematocrit 43.9 % (39.0-53.0) Mean Corpuscular Volume 89 fL (79-100) Mean Corpuscular Hemoglobin 29 pg (25-35) Mean Corpuscular Hemoglobin Concent 33 g/dL (31-37) Red Cell Distribution Width 14.5 % (11.5-14.5) Platelet Count 183 x10^3/uL (140-400) Neutrophils (%) (Auto) 59 % (31-73) Lymphocytes (%) (Auto) 27 % (24-48) Monocytes (%) (Auto) 11 % (0-9) Eosinophils (%) (Auto) 3 % (0-3) Basophils (%) (Auto) 1 % (0-3) Neutrophils # (Auto) 2.3 x10^3uL (1.8-7.7) Lymphocytes # (Auto) 1.1 x10^3/uL (1.0-4.8) Monocytes # (Auto) 0.4 x10^3/uL (0.0-1.1) Eosinophils # (Auto) 0.1 x10^3/uL (0.0-0.7) Basophils # (Auto) 0.0 x10^3/uL (0.0-0.2) Sodium Level 139 mmol/L (136-145) Potassium Level 4.6 mmol/L (3.5-5.1) Chloride Level 100 mmol/L (98-107) Carbon Dioxide Level 35 mmol/L (21-32) Anion Gap 4 (6-14) Blood Urea Nitrogen 26 mg/dL (8-26) Creatinine 1.2 mg/dL (0.7-1.3) Estimated GFR (Cockcroft-Gault) 62.6 BUN/Creatinine Ratio 22 (6-20) Glucose Level 203 mg/dL (70-99) Calcium Level 9.5 mg/dL (8.5-10.1) Total Bilirubin 0.4 mg/dL (0.2-1.0) Aspartate Amino Transf (AST/SGOT) 25 U/L (15-37) Alanine Aminotransferase (ALT/SGPT) 33 U/L (16-63) Alkaline Phosphatase 138 U/L (46-116) Total Protein 7.2 g/dL (6.4-8.2) Albumin 3.3 g/dL (3.4-5.0) Albumin/Globulin Ratio 0.8 (1.0-1.7) Laboratory Tests Test 06/23/18 16:45 06/23/18 20:59 06/24/18 07:44 06/24/18 08:35 Glucose (Fingerstick) 209 mg/dL (70-99) 236 mg/dL (70-99) 184 mg/dL (70-99) White Blood Count 4.0 x10^3/uL (4.0-11.0) Red Blood Count 4.91 x10^6/uL (4.30-5.70) Hemoglobin 14.4 g/dL (13.0-17.5) Hematocrit 43.9 % (39.0-53.0) Mean Corpuscular Volume 89 fL (79-100) Mean Corpuscular Hemoglobin 29 pg (25-35) Mean Corpuscular Hemoglobin Concent 33 g/dL (31-37) Red Cell Distribution Width 14.5 % (11.5-14.5) Platelet Count 183 x10^3/uL (140-400) Neutrophils (%) (Auto) 59 % (31-73) Lymphocytes (%) (Auto) 27 % (24-48) Monocytes (%) (Auto) 11 % (0-9) Eosinophils (%) (Auto) 3 % (0-3) Basophils (%) (Auto) 1 % (0-3) Neutrophils # (Auto) 2.3 x10^3uL (1.8-7.7) Lymphocytes # (Auto) 1.1 x10^3/uL (1.0-4.8) Monocytes # (Auto) 0.4 x10^3/uL (0.0-1.1) Eosinophils # (Auto) 0.1 x10^3/uL (0.0-0.7) Basophils # (Auto) 0.0 x10^3/uL (0.0-0.2) Sodium Level 139 mmol/L (136-145) Potassium Level 4.6 mmol/L (3.5-5.1) Chloride Level 100 mmol/L (98-107) Carbon Dioxide Level 35 mmol/L (21-32) Anion Gap 4 (6-14) Blood Urea Nitrogen 26 mg/dL (8-26) Creatinine 1.2 mg/dL (0.7-1.3) Estimated GFR (Cockcroft-Gault) 62.6 BUN/Creatinine Ratio 22 (6-20) Glucose Level 203 mg/dL (70-99) Calcium Level 9.5 mg/dL (8.5-10.1) Total Bilirubin 0.4 mg/dL (0.2-1.0) Aspartate Amino Transf (AST/SGOT) 25 U/L (15-37) Alanine Aminotransferase (ALT/SGPT) 33 U/L (16-63) Alkaline Phosphatase 138 U/L (46-116) Total Protein 7.2 g/dL (6.4-8.2) Albumin 3.3 g/dL (3.4-5.0) Albumin/Globulin Ratio 0.8 (1.0-1.7) Test 06/24/18 11:42 Glucose (Fingerstick) 288 mg/dL (70-99) Medications Active Scripts Medications Dose Route/Sig Max Daily Dose Days Date Category Lantus Solostar (Insulin Glargine,Hum.rec.anlog) 100 Unit/1 Ml Insuln.pen 10 Units SQ QHS 30 03/23/18 Rx Carafate (Sucralfate) 1 Gm Tablet 1 Gm PO BIDWMEALS 30 03/23/18 Rx Percocet 5-325 Mg Tablet (Oxycodone/Acetaminophen) 1 Each Tablet 1 Tab PO PRN Q6HRS PRN 6 03/23/18 Rx Mag-Oxide (Magnesium Oxide) 400 Mg Tablet 1 Tab PO BID 30 03/23/18 Rx Cyclobenzaprine Hcl 10 Mg Tablet 10 Mg PO TID 03/12/18 Rx Alprazolam 1 Mg Tablet 1 Tab PO TID PRN 02/27/18 Reported Polyethylene Glycol 3350 17 Gm Powd.pack 17 Gm PO PRN DAILY PRN 10 02/12/18 Rx Colace (Docusate Sodium) 100 Mg Capsule 100 Mg PO BID66 28 02/12/18 Rx Dicyclomine Hcl 10 Mg Capsule 20 Mg PO PRN QID PRN 14 01/29/18 Rx Lisinopril 10 Mg Tablet 1 Tab PO DAILY 01/27/18 Reported Amitriptyline Hcl 10 Mg Tablet 2 Tab PO QHS 01/27/18 Reported Potassium Chloride 20 Meq Tablet.er 20 Meq PO DAILY 01/27/18 Reported Levetiracetam 500 Mg Tablet 1 Tab PO BID 01/27/18 Reported Gabapentin (Gabapentin) 300 Mg Capsule 300 Mg PO TID 01/27/18 Reported Atorvastatin Calcium 80 Mg Tablet 1 Tab PO DAILY 01/27/18 Reported Metoprolol Succinate ( Xl ) (Metoprolol Succinate) 100 Mg Tab.er.24h 1 Tab PO DAILY 01/27/18 Reported Spironolactone 25 Mg Tablet 1 Tab PO DAILY 09/25/16 Reported Amiodarone Hcl 200 Mg Tablet 1 Tab PO DAILY 09/25/16 Reported Impression . IMPRESSION: 1. Abnormal x-ray, suspect pneumonia. 2. Tobacco dependent. 3. Acute exacerbation of chronic obstructive pulmonary disease. 4. Metabolic toxic encephalopathy. 5. Polysubstance use. The patient tested positive for cannabinoids, benzodiazepines, amphetamines and opiates. 6. Subjective weight loss. 7. Thrombocytopenia. Plan . D/W DR JOYCE CONCERNED FOR ATYPICAL ORGANISM PT IMMUNOCOMPROMISE WILL PROCEED WITH BRONCH IN AM REPEAT CT IN 2 MONTHS FOLLOW ONC INPUT RC ELIZALDE MD June 24, 2018 13:31
[2018-06-24] MEDS ORDERED: DEXTROSE 50% 25 GM / 50ML DISP.SYRIN. IV PRN (14:15)
[2018-06-24] MEDS ORDERED: INSULIN LISPRO 300 UNITS/3 ML INSULN.PEN. SQ ONE (14:30)
--- NOTE | 2018-06-24 14:58 | NUR ---
DAVID following pt for anticipated dc needs. Chart reviewed. Pt lives at home and is self pay. ID and wound care following. No recommendation noted at this time. Will continue to follow. 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
[2018-06-24] MEDS: ENOXAPARIN 40 MG/0.4 ML SYRINGE. SQ SCH (17:25)
[2018-06-24] MEDS: INSULIN LISPRO 300 UNITS/3 ML INSULN.PEN. SQ SCH (17:34)
[2018-06-24 19:00] VITALS: BP 113/63
[2018-06-24] MEDS: AMITRIPTYLINE HCL 25 MG TABLET. PO SCH (20:16)
[2018-06-24] MEDS: CEFDINIR 300 MG CAPSULE PO SCH (20:16)
[2018-06-24 23:00] VITALS: BP 106/59
[2018-06-25] VITALS (11 sets, daily range): BP systolic 92–130; BP diastolic 54–84
[2018-06-25] MEDS: oxyCODONE/APAP 5/325 1 TAB TABLET PO PRN ×3 (02:31→21:55)
[2018-06-25] MEDS: MORPHINE SULFATE 2 MG/ML VIAL. IV PRN ×4 (05:34→20:50)
[2018-06-25] MEDS: METOCLOPRAMIDE 10 MG TABLET. PO SCH ×4 (07:30→20:49)
[2018-06-25] MEDS: INSULIN LISPRO 300 UNITS/3 ML INSULN.PEN. SQ SCH ×3 (08:00→16:56)
[2018-06-25] MEDS: HYDROcodone/APAP 10/325 1 TAB TABLET PO PRN (08:59)
[2018-06-25] MEDS: levETIRAcetam 500 MG TABLET PO SCH ×2 (08:59→20:49)
[2018-06-25] MEDS: AMIODARONE HCL 200 MG TABLET. PO SCH (09:00)
[2018-06-25] MEDS: FUROSEMIDE 20 MG TABLET PO SCH (09:00)
[2018-06-25] MEDS: METOPROLOL SUCC 24HR ER 100 MG TAB.ER.24H. PO SCH ×2 (09:00→20:49)
[2018-06-25] MEDS: LISINOPRIL 10 MG TABLET PO SCH (09:00)
[2018-06-25] MEDS ORDERED: IV RINGERS,LACTATED 1000ML 1,000 ML IV SCH (09:33)
[2018-06-25] MEDS ORDERED: MORPHINE SULFATE 2 MG/ML VIAL. IV PRN (09:45)
[2018-06-25] MEDS ORDERED: fentaNYL PF VIAL 100 MCG/2 ML VIAL IV PRN ×2 (09:45)
[2018-06-25] MEDS ORDERED: HYDROmorphone 2 MG/ML VIAL IV PRN (09:45)
[2018-06-25] MEDS ORDERED: EPINEPHrine 1 MG/ML VIAL INJ PRN (09:45)
[2018-06-25] MEDS ORDERED: ONDANSETRON PF 4 MG/2 ML VIAL. IV PRN (09:45)
[2018-06-25] MEDS ORDERED: LIDOCAINE 2% VISCOUS 100 ML BOTTLE. MM PRN (09:45)
[2018-06-25] MEDS ORDERED: LIDOCAINE 4% TOPICAL 50 ML SOLUTION. MM PRN (09:45)
[2018-06-25] MEDS ORDERED: ALBUTEROL SULFATE 2.5 MG/3 ML NEBU. NEB PRN (09:45)
[2018-06-25] MEDS ORDERED: LIDOCAINE 1% Multi-Dose 20 ML VIAL. INJ PRN (09:45)
[2018-06-25] MEDS ORDERED: LIDOCAINE 1% PF 2 ML VIAL. ID PRN (09:45)
--- NOTE | 2018-06-25 09:55 | PDOC ---
PROGRESS NOTES Chief Complaint Chief Complaint impression acute TOXIC metabolic encephalopathy Altered mental status thrombocytopenia, IMPROVING METH ABUSE right middle lobe pneumonia infiltrate posteriorly of the right middle lobe, slightly nodular morphology for which short-term follow-up after treatment advised such as within 2 months. There is other likely fibrotic change of the bilateral hemithoraces. HX median sternotomy. There is coronary calcification. There is borderline enlarged pretracheal node as seen previously. 50 pound weight loss in 6 months, A SEVERE DECLINE suspect metastatic disease CAD s/p CABG 2014. clinically stable. Chronic systolic CHF with ICM; Recent EF 35%, compensated Paroxysmal atrial flutter; hx DM2/HLP H/o substance abuse: meth in the past and marijuana. Potential opioid seeking. AICD in situ: Coinfloortronic. Interrogated and no abnormalities reported. 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 angry at staff at times thrombocytopenia improving Vitals Vitals Vital Signs Date Time Temp Pulse Resp B/P (MAP) Pulse Ox O2 Delivery O2 Flow Rate FiO2 06/25/18 08:59 Room Air 06/25/18 06:05 16 98 06/25/18 03:00 97.9 61 98/65 (76) 97.9 Physical Exam Physical Exam GENERAL: Alert, oriented gentleman, not in distress. VITAL SIGNS: Stable, afebrile. HEENT: NAD. NECK: Supple, no JVP, no lymphadenopathy. LUNGS: Clear. HEART: S1, S2 regular. ABDOMEN: Benign. EXTREMITIES: No edema or cyanosis. SKIN: The patient does have a blister on the right lateral proximal thigh, clean without any infection. The patient does have a patch of redness on the right axilla, looks like possible tinea. Rest of the skin examination was unremarkable. NEUROLOGIC: Alert, awake and appropriate. No focal neurologic deficit. General: Alert, Oriented X3, Cooperative, mild distress, Other (seemed really annoyed when I asked questions or tried to examine him. ) Heart: Regular rate, Normal S1, Normal S2, No murmurs Lungs: Wheezing, Crackles Abdomen: Normal bowel sounds, Soft, No tenderness Extremities: No cyanosis, Other (the right hip has a aqua cell foam dressing which I lifted up to observe a blister that is approximately 8 x 8 cm. It has serous but not bloody fluid. Unclear etiology. Mild hip pain with range of motion but the blister 10 cm distal to the greater trochanter, not over the greater trochanter, an unusual location for traumatic contact. ) Skin: No rashes, No significant lesion Labs LABS BRONCHOSCOPY NOTE INDICATIONS: Pneumonia. DESCRIPTION OF PROCEDURE: Informed consent was obtained from the patient. All risks and benefits were explained. He agreed to proceed with the procedure. Propofol was used by Anesthesia for sedation. Bronch was introduced through the left nostril. The upper airway was passed. Vocal cord moved equally with respiration. The trachea was entered. No tracheal lesions seen. Deb was sharp. Minimal blood-tinged secretions seen at the junction of right upper and right middle and at the opening of the right middle lobe. No endobronchial lesion seen. Bronchoalveolar lavage performed from right middle lobe and also from the right lower lobe. Left lung was examined. No significant secretions seen in the left lung. The patient's blood pressure did drop in the high 60s to low 70s during the procedure and was managed by Anesthesia. The patient did receive IV fluids per Anesthesia. IMPRESSION: 1. No endobronchial lesion seen. 2. Mild blood-tinged secretions seen at the junction of the right upper, right middle and at the opening of right middle lobe. 3. Bronchoalveolar lavage performed from right middle lobe and right lower lobe. 4. Left lung with no secretions and no endobronchial lesions. 5. Follow the culture results. Laboratory Tests Test 06/24/18 11:42 06/24/18 13:57 06/24/18 16:47 06/24/18 20:16 Glucose (Fingerstick) 288 mg/dL (70-99) 312 mg/dL (70-99) 101 mg/dL (70-99) 142 mg/dL (70-99) Test 06/25/18 08:33 Glucose (Fingerstick) 199 mg/dL (70-99) Assessment and Plan Assessmemt and Plan Problems Medical Problems: (1) Altered mental status Status: Acute (2) Right lower lobe pulmonary infiltrate Status: Acute Comment Review of Relevant I have reviewed the following items otis (where applicable) has been applied. Labs Laboratory Tests Test 06/23/18 16:45 06/23/18 20:59 06/24/18 07:44 06/24/18 08:35 Glucose (Fingerstick) 209 mg/dL (70-99) 236 mg/dL (70-99) 184 mg/dL (70-99) White Blood Count 4.0 x10^3/uL (4.0-11.0) Red Blood Count 4.91 x10^6/uL (4.30-5.70) Hemoglobin 14.4 g/dL (13.0-17.5) Hematocrit 43.9 % (39.0-53.0) Mean Corpuscular Volume 89 fL (79-100) Mean Corpuscular Hemoglobin 29 pg (25-35) Mean Corpuscular Hemoglobin Concent 33 g/dL (31-37) Red Cell Distribution Width 14.5 % (11.5-14.5) Platelet Count 183 x10^3/uL (140-400) Neutrophils (%) (Auto) 59 % (31-73) Lymphocytes (%) (Auto) 27 % (24-48) Monocytes (%) (Auto) 11 % (0-9) Eosinophils (%) (Auto) 3 % (0-3) Basophils (%) (Auto) 1 % (0-3) Neutrophils # (Auto) 2.3 x10^3uL (1.8-7.7) Lymphocytes # (Auto) 1.1 x10^3/uL (1.0-4.8) Monocytes # (Auto) 0.4 x10^3/uL (0.0-1.1) Eosinophils # (Auto) 0.1 x10^3/uL (0.0-0.7) Basophils # (Auto) 0.0 x10^3/uL (0.0-0.2) Sodium Level 139 mmol/L (136-145) Potassium Level 4.6 mmol/L (3.5-5.1) Chloride Level 100 mmol/L (98-107) Carbon Dioxide Level 35 mmol/L (21-32) Anion Gap 4 (6-14) Blood Urea Nitrogen 26 mg/dL (8-26) Creatinine 1.2 mg/dL (0.7-1.3) Estimated GFR (Cockcroft-Gault) 62.6 BUN/Creatinine Ratio 22 (6-20) Glucose Level 203 mg/dL (70-99) Calcium Level 9.5 mg/dL (8.5-10.1) Total Bilirubin 0.4 mg/dL (0.2-1.0) Aspartate Amino Transf (AST/SGOT) 25 U/L (15-37) Alanine Aminotransferase (ALT/SGPT) 33 U/L (16-63) Alkaline Phosphatase 138 U/L (46-116) Total Protein 7.2 g/dL (6.4-8.2) Albumin 3.3 g/dL (3.4-5.0) Albumin/Globulin Ratio 0.8 (1.0-1.7) Test 06/24/18 11:42 06/24/18 13:57 06/24/18 16:47 06/24/18 20:16 Glucose (Fingerstick) 288 mg/dL (70-99) 312 mg/dL (70-99) 101 mg/dL (70-99) 142 mg/dL (70-99) Test 06/25/18 08:33 Glucose (Fingerstick) 199 mg/dL (70-99) Laboratory Tests Test 06/24/18 11:42 06/24/18 13:57 06/24/18 16:47 06/24/18 20:16 Glucose (Fingerstick) 288 mg/dL (70-99) 312 mg/dL (70-99) 101 mg/dL (70-99) 142 mg/dL (70-99) Test 06/25/18 08:33 Glucose (Fingerstick) 199 mg/dL (70-99) Microbiology 06/21/18 Blood Culture - Preliminary, Resulted NO GROWTH AFTER 4 DAYS Medications Current Medications Sodium Chloride 1,000 ml @ 1,000 mls/hr 1X ONCE IV Last administered on 06/20/18at 15:49; Start 06/20/18 at 15:30; Stop 06/20/18 at 16:29; Status DC Ceftriaxone Sodium (Rocephin) 1 gm 1X ONCE IVP Last administered on 06/20/18at 18:52; Start 06/20/18 at 19:00; Stop 06/20/18 at 19:01; Status DC Ondansetron HCl (Zofran) 4 mg PRN Q8HRS PRN IV NAUSEA/VOMITING Last administered on 06/21/18at 13:52; Start 06/20/18 at 19:45; Stop 06/21/18 at 19:44; Status DC Morphine Sulfate (Morphine Sulfate) 2 mg PRN Q2HR PRN IV PAIN Last administered on 06/21/18at 18:33; Start 06/20/18 at 19:45; Stop 06/21/18 at 19:44; Status DC Acetaminophen (Tylenol) 650 mg PRN Q4HRS PRN PO FEVER; Start 06/20/18 at 19:45; Stop 06/21/18 at 19:44; Status DC Enoxaparin Sodium (Lovenox 40mg Syringe) 40 mg Q24H SQ Last administered on 06/24/18at 17:25; Start 06/21/18 at 16:00 Ceftriaxone Sodium (Rocephin) 1 gm Q24H IVP Last administered on 06/23/18at 18:37; Start 06/21/18 at 19:00; Stop 06/24/18 at 14:00; Status DC Iohexol (Omnipaque 300 Mg/ml) 75 ml 1X ONCE IV Last administered on 06/21/18at 14:26; Start 06/21/18 at 13:30; Stop 06/21/18 at 13:31; Status DC Iohexol (Omnipaque 240 Mg/ml) 30 ml 1X ONCE PO Last administered on 06/21/18at 13:15; Start 06/21/18 at 13:15; Stop 06/21/18 at 13:17; Status DC Info (CONTRAST GIVEN -- Rx MONITORING) 1 each PRN DAILY PRN MC SEE COMMENTS; Start 06/21/18 at 13:30; Stop 06/23/18 at 13:29; Status DC Lactobacillus Rhamnosus (Culturelle) 1 cap BID PO Last administered on 06/24/18at 20:18; Start 06/21/18 at 21:00 Morphine Sulfate (Morphine Sulfate) 2 mg PRN Q4HRS PRN IV SEVERE PAIN Last admi nistered on 06/25/18 05:34; Start 06/21/18 at 21:15 Oxycodone/ Acetaminophen (Percocet 5/325) 1 tab PRN Q6HRS PRN PO MODERATE PAIN Last administered on 06/25/18 02:31; Start 06/21/18 at 21:15 Amiodarone HCl (Cordarone) 200 mg DAILY PO Last administered on 06/24/18 08:36; Start 06/22/18 at 13:00 Amitriptyline HCl (Elavil) 25 mg QHS PO Last administered on 06/24/18 20:16; Start 06/22/18 at 21:00 Docusate Sodium (Colace) 100 mg DAILY PO Last administered on 06/24/18 08:38; Start 06/22/18 at 13:00 Furosemide (Lasix) 20 mg DAILY PO Last administered on 06/24/18 08:35; Start 06/22/18 at 13:00 Gabapentin (Neurontin) 300 mg TID PO Last administered on 06/24/18 20:16; Start 06/22/18 at 14:00 Acetaminophen/ Hydrocodone Bitart (Lortab 10/325) 1 tab PRN BID PRN PO SEVERE PAIN Last administered on 06/25/18 08:59; Start 06/22/18 at 12:15 Lisinopril (Prinivil) 10 mg DAILY PO Last administered on 06/24/18 08:35; Start 06/22/18 at 13:00 Metoclopramide HCl (Reglan) 10 mg QIDACHS PO Last administered on 06/24/18 20:16; Start 06/22/18 at 16:30 Metoprolol Succinate (Toprol Xl) 100 mg BID PO Last administered on 06/24/18 20:17; Start 06/22/18 at 21:00 Potassium Chloride (Klor-Con) 10 meq DAILY PO Last administered on 06/24/18 08:36; Start 06/22/18 at 13:00 Tizanidine HCl (Zanaflex) 4 mg PRN Q12HRS PRN PO MUSCLE SPASMS Last administered on 06/24/18 22:57; Start 06/22/18 at 12:15 Levetiracetam (Keppra) 500 mg BID PO Last administered on 06/25/18 08:59; Start 06/22/18 at 21:00 Ondansetron HCl (Zofran) 4 mg PRN Q4HRS PRN IV NAUSEA/VOMITING Last administered on 06/22/18 17:56; Start 06/22/18 at 12:45 Alprazolam (Xanax) 1 mg PRN TID PRN PO ANXIETY / AGITATION Last administered on 06/24/18 22:56; Start 06/22/18 at 20:45 Nicotine (Nicoderm Cq 21mg) 1 patch DAILY TD Last administered on 06/24/18 08:38; Start 06/23/18 at 13:00 Sertraline HCl (Zoloft) 25 mg DAILY PO Last administered on 06/24/18 08:35; Start 06/23/18 at 15:00 Cefdinir (Omnicef) 300 mg BID PO Last administered on 06/24/18 20:16; Start 06/24/18 at 21:00 Insulin Human Lispro (HumaLOG) 12 units 1X ONCE SQ Last administered on 06/24/18 14:48; Start 06/24/18 at 14:30; Stop 06/24/18 at 14:31; Status DC Insulin Human Lispro (HumaLOG) 0-7 UNITS TIDWMEALS SQ Last administered on 06/24/18at 17:34; Start 06/24/18 at 17:00 Dextrose (Dextrose 50%-Water Syringe) 12.5 gm PRN Q15MIN PRN IV SEE COMMENTS; Start 06/24/18 at 14:15 Ondansetron HCl (Zofran) 4 mg PRN Q6HRS PRN IV NAUSEA/VOMITING; Start 06/25/18 at 09:45; Stop 06/26/18 at 09:44 Fentanyl Citrate (Fentanyl 2ml Vial) 25 mcg PRN Q5MIN PRN IV MILD PAIN; Start 06/25/18 at 09:45; Stop 06/26/18 at 09:44 Fentanyl Citrate (Fentanyl 2ml Vial) 50 mcg PRN Q5MIN PRN IV MODERATE TO SEVERE PAIN; Start 06/25/18 at 09:45; Stop 06/26/18 at 09:44 Morphine Sulfate (Morphine Sulfate) 1 mg PRN Q10MIN PRN IV SEVERE PAIN; Start 06/25/18 at 09:45; Stop 06/26/18 at 09:44 Ringer's Solution 1,000 ml @ 30 mls/hr Q24H IV ; Start 06/25/18 at 09:33; Stop 06/25/18 at 21:32 Lidocaine HCl (Xylocaine-Mpf 1% 2ml Vial) 2 ml PRN 1X PRN ID PRIOR TO IV START; Start 06/25/18 at 09:45; Stop 06/26/18 at 09:44 Hydromorphone HCl (Dilaudid) 0.5 mg PRN Q10MIN PRN IV SEV PAIN, Second choice; Start 06/25/18 at 09:45; Stop 06/26/18 at 09:44 Albuterol Sulfate (Ventolin Neb Soln) 2.5 mg PRN 1X PRN NEB SHORTNESS OF BREATH; Start 06/25/18 at 09:45; Stop 06/26/18 at 09:44 Lidocaine HCl (Lidocaine 2% Viscous) 100 ml PRN 1X PRN MM MOUTH PAIN; Start 06/25/18 at 09:45; Stop 06/26/18 at 09:44 Lidocaine HCl (Lidocaine 1% 20ml Vial) 20 ml PRN 1X PRN INJ SEE COMMENTS; Start 06/25/18 at 09:45; Stop 06/26/18 at 09:44 Epinephrine HCl (Adrenalin) 1 mg PRN 1X PRN INJ SEE COMMENTS; Start 06/25/18 at 09:45; Stop 06/26/18 at 09:44 Lidocaine HCl 50 ml PRN 1X PRN MM SEE COMMENTS; Start 06/25/18 at 09:45; Stop 06/26/18 at 09:44 Active Scripts Active Reported Keppra (Levetiracetam) 500 Mg Tablet 500 Mg PO BID Tizanidine Hcl 4 Mg Tablet 1 Tab PO TID Docusate Sodium 100 Mg Capsule 1 Cap PO DAILY Furosemide 20 Mg Tablet 20 Mg PO DAILY Hydrocodone-Apap 10-325 (Hydrocodone Bit/Acetaminophen) 1 Tab Tablet 1 Tab PO BID PRN Metoclopramide Hcl 10 Mg Tablet 10 Mg PO QIDACHS Janumet 50-1,000 Mg Tablet (Sitagliptin Phos/Metformin Hcl) 1 Each Tablet 2 Each PO DAILYWSUP Amitriptyline Hcl 25 Mg Tablet 1 Tab PO QHS Potassium Chloride 10 Meq Tablet.er 10 Meq PO DAILY Alprazolam 1 Mg Tablet 1 Tab PO TID PRN Lisinopril 10 Mg Tablet 1 Tab PO DAILY Gabapentin (Gabapentin) 300 Mg Capsule 300 Mg PO TID Atorvastatin Calcium 80 Mg Tablet 1 Tab PO DAILY Metoprolol Succinate ( Xl ) (Metoprolol Succinate) 100 Mg Tab.er.24h 1 Tab PO BID Amiodarone Hcl 200 Mg Tablet 1 Tab PO DAILY Vitals/I & O Vital Sign - Last 24 Hours 06/24/18 06/24/18 06/24/18 06/24/18 11:00 12:32 17:26 19:00 Temp 97.3 97.9 97.3 97.9 Pulse 65 72 Resp 20 16 B/P (MAP) 96/58 (71) 113/63 (80) Pulse Ox 96 100 O2 Delivery Room Air Room Air Room Air Room Air 06/24/18 06/24/18 06/24/18 06/24/18 20:11 20:17 20:21 22:53 Pulse 72 Resp 18 17 B/P (MAP) 114/63 Pulse Ox 96 96 O2 Delivery Room Air Room Air Room Air 06/24/18 06/25/18 06/25/18 06/25/18 23:00 02:31 03:00 03:35 Temp 97.7 97.9 97.7 97.9 Pulse 72 61 Resp 16 16 16 16 B/P (MAP) 106/59 (75) 98/65 (76) Pulse Ox 95 95 98 98 O2 Delivery Room Air Room Air Room Air Room Air 06/25/18 06/25/18 06/25/18 06/25/18 05:34 06:05 08:00 08:59 Resp 18 16 Pulse Ox 98 98 O2 Delivery Room Air Room Air Room Air Room Air Intake and Output 06/24/18 06/24/18 06/25/18 14:59 22:59 06:59 Intake Total 460 ml 700 ml 360 ml Output Total 500 ml Balance -40 ml 700 ml 360 ml SARAH RUDD MD June 25, 2018 09:55
--- NOTE | 2018-06-25 10:00 | PDOC ---
Infectious Disease Note Subjective Subjective pt is feeling good ROS ROS no n/v/d/ Vital Sign Vital Signs Vital Signs Date Time Temp Pulse Resp B/P (MAP) Pulse Ox O2 Delivery O2 Flow Rate FiO2 06/25/18 08:59 Room Air 06/25/18 06:05 16 98 06/25/18 03:00 97.9 61 98/65 (76) 97.9 Physical Exam PHYSICAL EXAM GENERAL: Alert, oriented gentleman, not in distress. VITAL SIGNS: Stable, afebrile. HEENT: NAD. NECK: Supple, no JVP, no lymphadenopathy. LUNGS: Clear. HEART: S1, S2 regular. ABDOMEN: Benign. EXTREMITIES: No edema or cyanosis. SKIN: The patient does have a blister on the right lateral proximal thigh, clean without any infection. The patient does have a patch of redness on the right axilla, looks like possible tinea. Rest of the skin examination was unremarkable. NEUROLOGIC: Alert, awake and appropriate. No focal neurologic deficit. Labs Lab Laboratory Tests Test 06/24/18 11:42 06/24/18 13:57 06/24/18 16:47 06/24/18 20:16 Glucose (Fingerstick) 288 mg/dL (70-99) 312 mg/dL (70-99) 101 mg/dL (70-99) 142 mg/dL (70-99) Test 06/25/18 08:33 Glucose (Fingerstick) 199 mg/dL (70-99) Micro Microbiology 06/21/18 Blood Culture - Preliminary, Resulted NO GROWTH AFTER 3 DAYS Objective Assessment 1. Pneumonia. He does not behave like the garden variety, community-acquired pneumonia, it is chronic pneumonia, a possibility of tuberculosis is there because of his risk factors. 2. Significant weight loss. rule out infection , but can also sec to drug use. 3. Drug use. 4. Encephalopathy. Plan Plan of Care bronch , inpt or out pt ok can be d/c ed on po antibiotics INGRID JOYCE MD June 25, 2018 10:00
[2018-06-25 10:06] LABS: BASO % 1 % (0-3); EOS # 0.1 x10^3/uL (0.0-0.7); EOS % 3 % (0-3); HEMATOCRIT 39.4 % (39.0-53.0); HEMOGLOBIN 13.2 g/dL (13.0-17.5); LYMPH # 1.3 x10^3/uL (1.0-4.8); LYMPH % 27 % (24-48); MEAN CORPUSCULAR HEMOGLOBIN 30 pg (25-35); MEAN CORPUSCULAR HGB CONC 33 g/dL (31-37); MEAN CORPUSCULAR VOLUME 89 fL (79-100); MONO # 0.5 x10^3/uL (0.0-1.1); MONO % 12 % (0-9); NEUT # 2.8 x10^3uL (1.8-7.7); NEUT % 58 % (31-73); PLATELET COUNT 165 x10^3/uL (140-400); RED CELL DISTRIBUTION WIDTH 14.7 % (11.5-14.5); WHITE BLOOD COUNT 4.8 x10^3/uL (4.0-11.0)
[2018-06-25 10:10] LABS: CALCIUM 9.3 mg/dL (8.5-10.1); GFR 77.3
[2018-06-25] MEDS: IV RINGERS,LACTATED 1000ML 1,000 ML IV SCH ×2 (10:30→23:17)
[2018-06-25] MEDS ORDERED: LIDOCAINE 4% TOPICAL 50 ML SOLUTION. ONE (10:33)
[2018-06-25] MEDS ORDERED: EPINEPHrine 1 MG/ML VIAL ONE (10:33)
[2018-06-25] MEDS ORDERED: LIDOCAINE 2% VISCOUS 100 ML BOTTLE. ONE (10:33)
[2018-06-25] MEDS ORDERED: LIDOCAINE 1% Multi-Dose 20 ML VIAL. ONE (10:33)
[2018-06-25] MEDS ORDERED: LIDOCAINE 2% PF 5 ML VIAL. ONE (10:58)
[2018-06-25] MEDS ORDERED: PROPOFOL 40 ML IV ONE (10:58)
[2018-06-25] MEDS ORDERED: ePHEDrine PF IN SALINE 50 MG/10 ML SYRINGE. IV ONE (12:00)
--- NOTE | 2018-06-25 12:00 | OP ---
DATE OF SURGERY: BRONCHOSCOPY NOTE INDICATIONS: Pneumonia. DESCRIPTION OF PROCEDURE: Informed consent was obtained from the patient. All risks and benefits were explained. He agreed to proceed with the procedure. Propofol was used by Anesthesia for sedation. Bronch was introduced through the left nostril. The upper airway was passed. Vocal cord moved equally with respiration. The trachea was entered. No tracheal lesions seen. Deb was sharp. Minimal blood-tinged secretions seen at the junction of right upper and right middle and at the opening of the right middle lobe. No endobronchial lesion seen. Bronchoalveolar lavage performed from right middle lobe and also from the right lower lobe. Left lung was examined. No significant secretions seen in the left lung. The patient's blood pressure did drop in the high 60s to low 70s during the procedure and was managed by Anesthesia. The patient did receive IV fluids per Anesthesia. IMPRESSION: 1. No endobronchial lesion seen. 2. Mild blood-tinged secretions seen at the junction of the right upper, right middle and at the opening of right middle lobe. 3. Bronchoalveolar lavage performed from right middle lobe and right lower lobe. 4. Left lung with no secretions and no endobronchial lesions. 5. Follow the culture results. LUIGI SINCLAIR MD DR: LAMAR/adal JOB#: [id number] / [id number]
[2018-06-25] MEDS: CEFDINIR 300 MG CAPSULE PO SCH ×2 (12:28→20:49)
[2018-06-25] MEDS: GABAPENTIN 300 MG CAPSULE. PO SCH ×3 (12:28→20:49)
[2018-06-25] MEDS: NICOTINE 21MG PATCH. TD SCH (12:28)
[2018-06-25] MEDS: SERTRALINE 25 MG TABLET. PO SCH (12:29)
[2018-06-25] MEDS: POTASSIUM CHLORIDE 10 MEQ TABLET.ER. PO SCH (12:29)
[2018-06-25] MEDS: LACTOBACILLUS RHAMNOSUS GG 1 CAPSULE. PO SCH ×2 (12:29→20:49)
[2018-06-25] MEDS: DOCUSATE SODIUM 100 MG CAPSULE. PO SCH (12:29)
[2018-06-25] MEDS: ALPRAZolam 1 MG TABLET PO PRN ×2 (13:40→21:55)
[2018-06-25] MEDS: ENOXAPARIN 40 MG/0.4 ML SYRINGE. SQ SCH (14:49)
--- NOTE | 2018-06-25 14:57 | PDOC ---
PULMONARY PROGRESS NOTES Subjective BETTER TODAY Vitals Vital Signs Date Time Temp Pulse Resp B/P (MAP) Pulse Ox O2 Delivery O2 Flow Rate FiO2 06/25/18 14:48 Room Air 06/25/18 11:44 97.6 69 18 117/77 96 97.6 06/25/18 11:23 4 ROS: No Nausea, No Chest Pain, No Abdominal Pain, No Increase Cough Lungs: Other (decrease bs) Cardiovascular: S1, S2 Abdomen: Soft, Non-tender Neuro Exam: Alert Extremities: No Edema Skin: Warm Labs Laboratory Tests Test 06/23/18 16:45 06/23/18 20:59 06/24/18 07:44 06/24/18 08:35 Glucose (Fingerstick) 209 mg/dL (70-99) 236 mg/dL (70-99) 184 mg/dL (70-99) White Blood Count 4.0 x10^3/uL (4.0-11.0) Red Blood Count 4.91 x10^6/uL (4.30-5.70) Hemoglobin 14.4 g/dL (13.0-17.5) Hematocrit 43.9 % (39.0-53.0) Mean Corpuscular Volume 89 fL (79-100) Mean Corpuscular Hemoglobin 29 pg (25-35) Mean Corpuscular Hemoglobin Concent 33 g/dL (31-37) Red Cell Distribution Width 14.5 % (11.5-14.5) Platelet Count 183 x10^3/uL (140-400) Neutrophils (%) (Auto) 59 % (31-73) Lymphocytes (%) (Auto) 27 % (24-48) Monocytes (%) (Auto) 11 % (0-9) Eosinophils (%) (Auto) 3 % (0-3) Basophils (%) (Auto) 1 % (0-3) Neutrophils # (Auto) 2.3 x10^3uL (1.8-7.7) Lymphocytes # (Auto) 1.1 x10^3/uL (1.0-4.8) Monocytes # (Auto) 0.4 x10^3/uL (0.0-1.1) Eosinophils # (Auto) 0.1 x10^3/uL (0.0-0.7) Basophils # (Auto) 0.0 x10^3/uL (0.0-0.2) Sodium Level 139 mmol/L (136-145) Potassium Level 4.6 mmol/L (3.5-5.1) Chloride Level 100 mmol/L (98-107) Carbon Dioxide Level 35 mmol/L (21-32) Anion Gap 4 (6-14) Blood Urea Nitrogen 26 mg/dL (8-26) Creatinine 1.2 mg/dL (0.7-1.3) Estimated GFR (Cockcroft-Gault) 62.6 BUN/Creatinine Ratio 22 (6-20) Glucose Level 203 mg/dL (70-99) Calcium Level 9.5 mg/dL (8.5-10.1) Total Bilirubin 0.4 mg/dL (0.2-1.0) Aspartate Amino Transf (AST/SGOT) 25 U/L (15-37) Alanine Aminotransferase (ALT/SGPT) 33 U/L (16-63) Alkaline Phosphatase 138 U/L (46-116) Total Protein 7.2 g/dL (6.4-8.2) Albumin 3.3 g/dL (3.4-5.0) Albumin/Globulin Ratio 0.8 (1.0-1.7) Test 06/24/18 11:42 06/24/18 13:57 06/24/18 16:47 06/24/18 20:16 Glucose (Fingerstick) 288 mg/dL (70-99) 312 mg/dL (70-99) 101 mg/dL (70-99) 142 mg/dL (70-99) Test 06/25/18 08:33 06/25/18 09:40 06/25/18 12:24 Glucose (Fingerstick) 199 mg/dL (70-99) 169 mg/dL (70-99) White Blood Count 4.8 x10^3/uL (4.0-11.0) Red Blood Count 4.40 x10^6/uL (4.30-5.70) Hemoglobin 13.2 g/dL (13.0-17.5) Hematocrit 39.4 % (39.0-53.0) Mean Corpuscular Volume 89 fL (79-100) Mean Corpuscular Hemoglobin 30 pg (25-35) Mean Corpuscular Hemoglobin Concent 33 g/dL (31-37) Red Cell Distribution Width 14.7 % (11.5-14.5) Platelet Count 165 x10^3/uL (140-400) Neutrophils (%) (Auto) 58 % (31-73) Lymphocytes (%) (Auto) 27 % (24-48) Monocytes (%) (Auto) 12 % (0-9) Eosinophils (%) (Auto) 3 % (0-3) Basophils (%) (Auto) 1 % (0-3) Neutrophils # (Auto) 2.8 x10^3uL (1.8-7.7) Lymphocytes # (Auto) 1.3 x10^3/uL (1.0-4.8) Monocytes # (Auto) 0.5 x10^3/uL (0.0-1.1) Eosinophils # (Auto) 0.1 x10^3/uL (0.0-0.7) Basophils # (Auto) 0.0 x10^3/uL (0.0-0.2) Sodium Level 136 mmol/L (136-145) Potassium Level 5.0 mmol/L (3.5-5.1) Chloride Level 99 mmol/L (98-107) Carbon Dioxide Level 32 mmol/L (21-32) Anion Gap 5 (6-14) Blood Urea Nitrogen 32 mg/dL (8-26) Creatinine 1.0 mg/dL (0.7-1.3) Estimated GFR (Cockcroft-Gault) 77.3 Glucose Level 204 mg/dL (70-99) Calcium Level 9.3 mg/dL (8.5-10.1) Laboratory Tests Test 06/24/18 16:47 06/24/18 20:16 06/25/18 08:33 06/25/18 09:40 Glucose (Fingerstick) 101 mg/dL (70-99) 142 mg/dL (70-99) 199 mg/dL (70-99) White Blood Count 4.8 x10^3/uL (4.0-11.0) Red Blood Count 4.40 x10^6/uL (4.30-5.70) Hemoglobin 13.2 g/dL (13.0-17.5) Hematocrit 39.4 % (39.0-53.0) Mean Corpuscular Volume 89 fL (79-100) Mean Corpuscular Hemoglobin 30 pg (25-35) Mean Corpuscular Hemoglobin Concent 33 g/dL (31-37) Red Cell Distribution Width 14.7 % (11.5-14.5) Platelet Count 165 x10^3/uL (140-400) Neutrophils (%) (Auto) 58 % (31-73) Lymphocytes (%) (Auto) 27 % (24-48) Monocytes (%) (Auto) 12 % (0-9) Eosinophils (%) (Auto) 3 % (0-3) Basophils (%) (Auto) 1 % (0-3) Neutrophils # (Auto) 2.8 x10^3uL (1.8-7.7) Lymphocytes # (Auto) 1.3 x10^3/uL (1.0-4.8) Monocytes # (Auto) 0.5 x10^3/uL (0.0-1.1) Eosinophils # (Auto) 0.1 x10^3/uL (0.0-0.7) Basophils # (Auto) 0.0 x10^3/uL (0.0-0.2) Sodium Level 136 mmol/L (136-145) Potassium Level 5.0 mmol/L (3.5-5.1) Chloride Level 99 mmol/L (98-107) Carbon Dioxide Level 32 mmol/L (21-32) Anion Gap 5 (6-14) Blood Urea Nitrogen 32 mg/dL (8-26) Creatinine 1.0 mg/dL (0.7-1.3) Estimated GFR (Cockcroft-Gault) 77.3 Glucose Level 204 mg/dL (70-99) Calcium Level 9.3 mg/dL (8.5-10.1) Test 06/25/18 12:24 Glucose (Fingerstick) 169 mg/dL (70-99) Medications Active Scripts Medications Dose Route/Sig Max Daily Dose Days Date Category Lantus Solostar (Insulin Glargine,Hum.rec.anlog) 100 Unit/1 Ml Insuln.pen 10 Units SQ QHS 30 03/23/18 Rx Carafate (Sucralfate) 1 Gm Tablet 1 Gm PO BIDWMEALS 30 03/23/18 Rx Percocet 5-325 Mg Tablet (Oxycodone/Acetaminophen) 1 Each Tablet 1 Tab PO PRN Q6HRS PRN 6 03/23/18 Rx Mag-Oxide (Magnesium Oxide) 400 Mg Tablet 1 Tab PO BID 30 03/23/18 Rx Cyclobenzaprine Hcl 10 Mg Tablet 10 Mg PO TID 03/12/18 Rx Alprazolam 1 Mg Tablet 1 Tab PO TID PRN 02/27/18 Reported Polyethylene Glycol 3350 17 Gm Powd.pack 17 Gm PO PRN DAILY PRN 10 02/12/18 Rx Colace (Docusate Sodium) 100 Mg Capsule 100 Mg PO BID66 28 02/12/18 Rx Dicyclomine Hcl 10 Mg Capsule 20 Mg PO PRN QID PRN 14 01/29/18 Rx Lisinopril 10 Mg Tablet 1 Tab PO DAILY 01/27/18 Reported Amitriptyline Hcl 10 Mg Tablet 2 Tab PO QHS 01/27/18 Reported Potassium Chloride 20 Meq Tablet.er 20 Meq PO DAILY 01/27/18 Reported Levetiracetam 500 Mg Tablet 1 Tab PO BID 01/27/18 Reported Gabapentin (Gabapentin) 300 Mg Capsule 300 Mg PO TID 01/27/18 Reported Atorvastatin Calcium 80 Mg Tablet 1 Tab PO DAILY 01/27/18 Reported Metoprolol Succinate ( Xl ) (Metoprolol Succinate) 100 Mg Tab.er.24h 1 Tab PO DAILY 01/27/18 Reported Spironolactone 25 Mg Tablet 1 Tab PO DAILY 09/25/16 Reported Amiodarone Hcl 200 Mg Tablet 1 Tab PO DAILY 09/25/16 Reported Impression . IMPRESSION: 1. Abnormal x-ray, suspected pneumonia. 2. Tobacco dependent. 3. Acute exacerbation of chronic obstructive pulmonary disease. 4. Metabolic toxic encephalopathy. 5. Polysubstance use. The patient tested positive for cannabinoids, benzodiazepines, amphetamines and opiates. 6. Subjective weight loss. 7. Thrombocytopenia. Plan . D/W DR JOYCE CONCERNED FOR ATYPICAL ORGANISM PT IMMUNOCOMPROMISE WILL PROCEED WITH BRONCH TODAY REPEAT CT IN 2 MONTHS FOLLOW ONC INPUT ABX PER LUIGI DAMIAN MD June 25, 2018 14:57
[2018-06-25] MEDS: AMITRIPTYLINE HCL 25 MG TABLET. PO SCH (20:49)
[2018-06-26 03:00] VITALS: BP 111/73
[2018-06-26] MEDS: MORPHINE SULFATE 2 MG/ML VIAL. IV PRN ×2 (03:03→08:03)
[2018-06-26 06:40] VITALS: BP 116/75
--- NOTE | 2018-06-26 07:57 | PDOC ---
SUBJECTIVE Subjective S: s/p bronch, still tired O: Physical exam: Gen.: thin man, resting in bed, NAD Lungs: Breathing comfortably Skin: Warm and dry Labs: cbc nl yesterday Rads: CT chest abdomen and pelvis showed bilateral fibrotic lung changes, coronary calcification, right middle lobe infiltrate, recommend two-month follow-up, pretracheal lymph node about 1 cm, mild dilation of distal small bowel at the anastomotic site, in right lower quadrant (mild splenomegaly seen 01/11 at ) Assessment and Plan: He is a 57-year-old male with admission for mental status changes, prior weight loss, w/ RML infiltrate, atyp pneum? He objectively lost about 50 lbs w/in the last 2 yrs over about a 6 mos period, but he's been relatively stable for quite some time. Has depression being tx'd, BMBx was cons idered but opted against since plt's normalized and splenomegaly has only been mild on prior CT scan. CT w/o obvious malignancy though f/u CT chest in 2 mos is warranted after tx of RML infiltrate, and bronch studies pending. Weight loss: more likely a 50 pound weight loss beginning 2 yrs ago that has been stable recently Thrombocytopenia: LDH normal, hepatitis panel neg, plt's have normalized, looking back, they were mildly low when admitted in Dec 2017 to as well but have been normal o/cisneros, may be improvement w/ tx of underlying infection? Prophylaxis: on lovenox, (history of recent right upper extremity superficial venous thrombosis) Right middle lobe infiltrate: Abx, ID and pulm are involved (2 mos f/u CT recommended) Drug abuse: Recommend cessation Depression: per primary care, being treated Disposition: per others, we can follow up as an outpatient after f/u CT prn, we will call to schedule after dc prn Thank you kindly, and please don't hesitate to call with any further questions. OBJECTIVE Vital Signs Vital Signs Date Time Temp Pulse Resp B/P (MAP) Pulse Ox O2 Delivery O2 Flow Rate FiO2 06/26/18 06:40 97.6 70 16 116/75 (89) 99 Room Air 97.6 06/26/18 03:33 97 Room Air 4.0 06/26/18 03:03 Room Air 06/26/18 03:00 98.0 76 16 111/73 (86) 97 Room Air 98.0 06/25/18 23:00 98.1 79 18 110/69 (83) 97 Room Air 98.1 06/25/18 22:55 100 Room Air 4.0 06/25/18 21:55 100 Room Air 4.0 06/25/18 20:50 100 Room Air 4.0 06/25/18 20:49 82 124/84 06/25/18 19:38 Room Air 06/25/18 19:00 100.0 82 16 124/84 (97) 100 Room Air 100.0 06/25/18 16:50 Room Air 06/25/18 14:48 Room Air 06/25/18 14:38 69 98/61 (73) 06/25/18 14:09 68 93/58 (70) 06/25/18 13:39 68 130/75 (93) 06/25/18 13:10 70 92/72 (79) 06/25/18 12:57 69 110/60 (77) 06/25/18 12:39 72 94/54 (67) 06/25/18 12:30 Room Air 06/25/18 12:29 72 101/62 (75) 06/25/18 12:11 68 120/77 (91) 06/25/18 11:44 97.6 69 18 117/77 96 Room Air 97.6 Simple Mask 06/25/18 11:37 97.6 69 18 98/64 96 Room Air 97.6 Simple Mask 06/25/18 11:23 97.6 66 18 97/62 100 Room Air 4 97.6 06/25/18 10:18 Room Air 06/25/18 10:18 98 63 18 99 98.0 06/25/18 10:13 98.0 63 20 97 98.0 06/25/18 08:59 Room Air 06/25/18 08:00 Room Air I & O Intake and Output 06/26/18 07:00 Intake Total 1000 ml Output Total 300 ml Balance 700 ml Intake Oral 500 ml IV Total 500 ml Output Urine Total 300 ml COMMENT Lab Laboratory Tests Test 06/25/18 08:33 06/25/18 09:40 06/25/18 12:24 06/25/18 16:31 Glucose (Fingerstick) 199 mg/dL (70-99) 169 mg/dL (70-99) 302 mg/dL (70-99) White Blood Count 4.8 x10^3/uL (4.0-11.0) Red Blood Count 4.40 x10^6/uL (4.30-5.70) Hemoglobin 13.2 g/dL (13.0-17.5) Hematocrit 39.4 % (39.0-53.0) Mean Corpuscular Volume 89 fL (79-100) Mean Corpuscular Hemoglobin 30 pg (25-35) Mean Corpuscular Hemoglobin Concent 33 g/dL (31-37) Red Cell Distribution Width 14.7 % (11.5-14.5) Platelet Count 165 x10^3/uL (140-400) Neutrophils (%) (Auto) 58 % (31-73) Lymphocytes (%) (Auto) 27 % (24-48) Monocytes (%) (Auto) 12 % (0-9) Eosinophils (%) (Auto) 3 % (0-3) Basophils (%) (Auto) 1 % (0-3) Neutrophils # (Auto) 2.8 x10^3uL (1.8-7.7) Lymphocytes # (Auto) 1.3 x10^3/uL (1.0-4.8) Monocytes # (Auto) 0.5 x10^3/uL (0.0-1.1) Eosinophils # (Auto) 0.1 x10^3/uL (0.0-0.7) Basophils # (Auto) 0.0 x10^3/uL (0.0-0.2) Sodium Level 136 mmol/L (136-145) Potassium Level 5.0 mmol/L (3.5-5.1) Chloride Level 99 mmol/L (98-107) Carbon Dioxide Level 32 mmol/L (21-32) Anion Gap 5 (6-14) Blood Urea Nitrogen 32 mg/dL (8-26) Creatinine 1.0 mg/dL (0.7-1.3) Estimated GFR (Cockcroft-Gault) 77.3 Glucose Level 204 mg/dL (70-99) Calcium Level 9.3 mg/dL (8.5-10.1) Test 06/25/18 19:43 Glucose (Fingerstick) 273 mg/dL (70-99) DAT ESTRELLA MD June 26, 2018 07:57
[2018-06-26] MEDS: CEFDINIR 300 MG CAPSULE PO SCH (07:58)
[2018-06-26] MEDS: FUROSEMIDE 20 MG TABLET PO SCH (07:58)
[2018-06-26] MEDS: LACTOBACILLUS RHAMNOSUS GG 1 CAPSULE. PO SCH (07:58)
[2018-06-26] MEDS: levETIRAcetam 500 MG TABLET PO SCH (07:58)
[2018-06-26] MEDS: NICOTINE 21MG PATCH. TD SCH (07:59)
[2018-06-26] MEDS: AMIODARONE HCL 200 MG TABLET. PO SCH (07:59)
[2018-06-26] MEDS: SERTRALINE 25 MG TABLET. PO SCH (07:59)
[2018-06-26] MEDS: POTASSIUM CHLORIDE 10 MEQ TABLET.ER. PO SCH (08:00)
[2018-06-26] MEDS: INSULIN LISPRO 300 UNITS/3 ML INSULN.PEN. SQ SCH ×2 (08:00→12:39)
[2018-06-26] MEDS: DOCUSATE SODIUM 100 MG CAPSULE. PO SCH (08:00)
[2018-06-26] MEDS: METOCLOPRAMIDE 10 MG TABLET. PO SCH ×2 (08:00→11:53)
[2018-06-26] MEDS: METOPROLOL SUCC 24HR ER 100 MG TAB.ER.24H. PO SCH (08:00)
[2018-06-26] MEDS: LISINOPRIL 10 MG TABLET PO SCH (08:01)
[2018-06-26] MEDS: GABAPENTIN 300 MG CAPSULE. PO SCH (08:13)
[2018-06-26 09:27] LABS: BASO % 1 % (0-3); EOS # 0.2 x10^3/uL (0.0-0.7); EOS % 3 % (0-3); HEMATOCRIT 39.2 % (39.0-53.0); HEMOGLOBIN 12.8 g/dL (13.0-17.5); LYMPH % 17 % (24-48); MEAN CORPUSCULAR HEMOGLOBIN 29 pg (25-35); MEAN CORPUSCULAR HGB CONC 33 g/dL (31-37); MEAN CORPUSCULAR VOLUME 90 fL (79-100); MONO # 0.5 x10^3/uL (0.0-1.1); MONO % 9 % (0-9); NEUT # 4.1 x10^3uL (1.8-7.7); NEUT % 71 % (31-73); PLATELET COUNT 158 x10^3/uL (140-400); RED BLOOD COUNT 4.35 x10^6/uL (4.30-5.70); RED CELL DISTRIBUTION WIDTH 14.7 % (11.5-14.5); WHITE BLOOD COUNT 5.8 x10^3/uL (4.0-11.0)
[2018-06-26 09:38] LABS: CALCIUM 9.5 mg/dL (8.5-10.1); GFR 77.3; POTASSIUM 4.7 mmol/L (3.5-5.1)
--- NOTE | 2018-06-26 09:56 | PDOC ---
PROGRESS NOTES Chief Complaint Chief Complaint impression acute TOXIC metabolic encephalopathy Altered mental status thrombocytopenia, IMPROVING METH ABUSE right middle lobe pneumonia infiltrate posteriorly of the right middle lobe, slightly nodular morphology for which short-term follow-up after treatment advised such as within 2 months. There is other likely fibrotic change of the bilateral hemithoraces. HX median sternotomy. There is coronary calcification. There is borderline enlarged pretracheal node as seen previously. 50 pound weight loss in 6 months, A SEVERE DECLINE CAD s/p CABG 2014. clinically stable. Chronic systolic CHF with ICM; Recent EF 35%, compensated Paroxysmal atrial flutter; hx DM2/HLP H/o substance abuse: meth in the past and marijuana. Potential opioid seeking. AICD in situ: medtr[employer]. Interrogated and no abnormalities reported. 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 POOR halfway and short term prognosis due to severe substance abuse, high risk of complications with noncompliance PLAN BRONCHOSCOPY TODAY IV ROCEPHIN 1 GM Q 24 HRS PULM CONSULT ONCOLOGY CONSULT BONE MARROW BX DELAYED 06/[address] JOYCE, Prefers a bronch be done soon to exclude mass 39 min pt exam, chart review, D/C PLANNING > 50% of time spent with exam, chart review, pt care coordination, very guarded prognosis per my chart review DUE TO SUBSTANCE ABUSE, NONCOMPLIANCE History of Present Illness History of Present Illness Patient resting comfortably in bed, no apparent distress. angry at staff at times thrombocytopenia improving Vitals Vitals Vital Signs Date Time Temp Pulse Resp B/P (MAP) Pulse Ox O2 Delivery O2 Flow Rate FiO2 06/26/18 08:03 18 99 Room Air 06/26/18 08:01 70 116/75 06/26/18 06:40 97.6 97.6 06/26/18 03:33 4.0 Physical Exam Physical Exam GENERAL: Alert, oriented gentleman, not in distress. VITAL SIGNS: Stable, afebrile. HEENT: NAD. NECK: Supple, no JVP, no lymphadenopathy. LUNGS: Clear. HEART: S1, S2 regular. ABDOMEN: Benign. EXTREMITIES: No edema or cyanosis. SKIN: The patient does have a blister on the right lateral proximal thigh, clean without any infection. Rest of the skin examination was unremarkable. NEUROLOGIC: Alert, awake and appropriate. No focal neurologic deficit. General: Alert, Oriented X3, Cooperative, No acute distress, Other (seemed really annoyed when I asked questions or tried to examine him. ) Heart: Regular rate, Normal S1, Normal S2, No murmurs Lungs: Other (decrease bs) Abdomen: Normal bowel sounds, Soft, No tenderness Extremities: No cyanosis, No edema, Other (the right hip has a aqua cell foam dressing which I lifted up to observe a blister that is approximately 8 x 8 cm. It has serous but not bloody fluid. Unclear etiology. Mild hip pain with range of motion but the blister 10 cm distal to the greater trochanter, not over the greater trochanter, an unusual location for traumatic contact. ) Skin: No rashes, No significant lesion Labs LABS Laboratory Tests Test 06/25/18 12:24 06/25/18 16:31 06/25/18 19:43 06/26/18 09:00 Glucose (Fingerstick) 169 mg/dL (70-99) 302 mg/dL (70-99) 273 mg/dL (70-99) White Blood Count 5.8 x10^3/uL (4.0-11.0) Red Blood Count 4.35 x10^6/uL (4.30-5.70) Hemoglobin 12.8 g/dL (13.0-17.5) Hematocrit 39.2 % (39.0-53.0) Mean Corpuscular Volume 90 fL (79-100) Mean Corpuscular Hemoglobin 29 pg (25-35) Mean Corpuscular Hemoglobin Concent 33 g/dL (31-37) Red Cell Distribution Width 14.7 % (11.5-14.5) Platelet Count 158 x10^3/uL (140-400) Neutrophils (%) (Auto) 71 % (31-73) Lymphocytes (%) (Auto) 17 % (24-48) Monocytes (%) (Auto) 9 % (0-9) Eosinophils (%) (Auto) 3 % (0-3) Basophils (%) (Auto) 1 % (0-3) Neutrophils # (Auto) 4.1 x10^3uL (1.8-7.7) Lymphocytes # (Auto) 1.0 x10^3/uL (1.0-4.8) Monocytes # (Auto) 0.5 x10^3/uL (0.0-1.1) Eosinophils # (Auto) 0.2 x10^3/uL (0.0-0.7) Basophils # (Auto) 0.0 x10^3/uL (0.0-0.2) Sodium Level 136 mmol/L (136-145) Potassium Level 4.7 mmol/L (3.5-5.1) Chloride Level 99 mmol/L (98-107) Carbon Dioxide Level 30 mmol/L (21-32) Anion Gap 7 (6-14) Blood Urea Nitrogen 29 mg/dL (8-26) Creatinine 1.0 mg/dL (0.7-1.3) Estimated GFR (Cockcroft-Gault) 77.3 Glucose Level 248 mg/dL (70-99) Calcium Level 9.5 mg/dL (8.5-10.1) Test 06/26/18 09:01 Glucose (Fingerstick) 241 mg/dL (70-99) Assessment and Plan Assessmemt and Plan Problems Medical Problems: (1) Altered mental status Status: Acute (2) Right lower lobe pulmonary infiltrate Status: Acute Comment Review of Relevant I have reviewed the following items otis (where applicable) has been applied. Labs Laboratory Tests Test 06/24/18 11:42 06/24/18 13:57 06/24/18 16:47 06/24/18 20:16 Glucose (Fingerstick) 288 mg/dL (70-99) 312 mg/dL (70-99) 101 mg/dL (70-99) 142 mg/dL (70-99) Test 06/25/18 08:33 06/25/18 09:40 06/25/18 12:24 06/25/18 16:31 Glucose (Fingerstick) 199 mg/dL (70-99) 169 mg/dL (70-99) 302 mg/dL (70-99) White Blood Count 4.8 x10^3/uL (4.0-11.0) Red Blood Count 4.40 x10^6/uL (4.30-5.70) Hemoglobin 13.2 g/dL (13.0-17.5) Hematocrit 39.4 % (39.0-53.0) Mean Corpuscular Volume 89 fL (79-100) Mean Corpuscular Hemoglobin 30 pg (25-35) Mean Corpuscular Hemoglobin Concent 33 g/dL (31-37) Red Cell Distribution Width 14.7 % (11.5-14.5) Platelet Count 165 x10^3/uL (140-400) Neutrophils (%) (Auto) 58 % (31-73) Lymphocytes (%) (Auto) 27 % (24-48) Monocytes (%) (Auto) 12 % (0-9) Eosinophils (%) (Auto) 3 % (0-3) Basophils (%) (Auto) 1 % (0-3) Neutrophils # (Auto) 2.8 x10^3uL (1.8-7.7) Lymphocytes # (Auto) 1.3 x10^3/uL (1.0-4.8) Monocytes # (Auto) 0.5 x10^3/uL (0.0-1.1) Eosinophils # (Auto) 0.1 x10^3/uL (0.0-0.7) Basophils # (Auto) 0.0 x10^3/uL (0.0-0.2) Sodium Level 136 mmol/L (136-145) Potassium Level 5.0 mmol/L (3.5-5.1) Chloride Level 99 mmol/L (98-107) Carbon Dioxide Level 32 mmol/L (21-32) Anion Gap 5 (6-14) Blood Urea Nitrogen 32 mg/dL (8-26) Creatinine 1.0 mg/dL (0.7-1.3) Estimated GFR (Cockcroft-Gault) 77.3 Glucose Level 204 mg/dL (70-99) Calcium Level 9.3 mg/dL (8.5-10.1) Test 06/25/18 19:43 06/26/18 09:00 06/26/18 09:01 Glucose (Fingerstick) 273 mg/dL (70-99) 241 mg/dL (70-99) White Blood Count 5.8 x10^3/uL (4.0-11.0) Red Blood Count 4.35 x10^6/uL (4.30-5.70) Hemoglobin 12.8 g/dL (13.0-17.5) Hematocrit 39.2 % (39.0-53.0) Mean Corpuscular Volume 90 fL (79-100) Mean Corpuscular Hemoglobin 29 pg (25-35) Mean Corpuscular Hemoglobin Concent 33 g/dL (31-37) Red Cell Distribution Width 14.7 % (11.5-14.5) Platelet Count 158 x10^3/uL (140-400) Neutrophils (%) (Auto) 71 % (31-73) Lymphocytes (%) (Auto) 17 % (24-48) Monocytes (%) (Auto) 9 % (0-9) Eosinophils (%) (Auto) 3 % (0-3) Basophils (%) (Auto) 1 % (0-3) Neutrophils # (Auto) 4.1 x10^3uL (1.8-7.7) Lymphocytes # (Auto) 1.0 x10^3/uL (1.0-4.8) Monocytes # (Auto) 0.5 x10^3/uL (0.0-1.1) Eosinophils # (Auto) 0.2 x10^3/uL (0.0-0.7) Basophils # (Auto) 0.0 x10^3/uL (0.0-0.2) Sodium Level 136 mmol/L (136-145) Potassium Level 4.7 mmol/L (3.5-5.1) Chloride Level 99 mmol/L (98-107) Carbon Dioxide Level 30 mmol/L (21-32) Anion Gap 7 (6-14) Blood Urea Nitrogen 29 mg/dL (8-26) Creatinine 1.0 mg/dL (0.7-1.3) Estimated GFR (Cockcroft-Gault) 77.3 Glucose Level 248 mg/dL (70-99) Calcium Level 9.5 mg/dL (8.5-10.1) Laboratory Tests Test 06/25/18 12:24 06/25/18 16:31 06/25/18 19:43 06/26/18 09:00 Glucose (Fingerstick) 169 mg/dL (70-99) 302 mg/dL (70-99) 273 mg/dL (70-99) White Blood Count 5.8 x10^3/uL (4.0-11.0) Red Blood Count 4.35 x10^6/uL (4.30-5.70) Hemoglobin 12.8 g/dL (13.0-17.5) Hematocrit 39.2 % (39.0-53.0) Mean Corpuscular Volume 90 fL (79-100) Mean Corpuscular Hemoglobin 29 pg (25-35) Mean Corpuscular Hemoglobin Concent 33 g/dL (31-37) Red Cell Distribution Width 14.7 % (11.5-14.5) Platelet Count 158 x10^3/uL (140-400) Neutrophils (%) (Auto) 71 % (31-73) Lymphocytes (%) (Auto) 17 % (24-48) Monocytes (%) (Auto) 9 % (0-9) Eosinophils (%) (Auto) 3 % (0-3) Basophils (%) (Auto) 1 % (0-3) Neutrophils # (Auto) 4.1 x10^3uL (1.8-7.7) Lymphocytes # (Auto) 1.0 x10^3/uL (1.0-4.8) Monocytes # (Auto) 0.5 x10^3/uL (0.0-1.1) Eosinophils # (Auto) 0.2 x10^3/uL (0.0-0.7) Basophils # (Auto) 0.0 x10^3/uL (0.0-0.2) Sodium Level 136 mmol/L (136-145) Potassium Level 4.7 mmol/L (3.5-5.1) Chloride Level 99 mmol/L (98-107) Carbon Dioxide Level 30 mmol/L (21-32) Anion Gap 7 (6-14) Blood Urea Nitrogen 29 mg/dL (8-26) Creatinine 1.0 mg/dL (0.7-1.3) Estimated GFR (Cockcroft-Gault) 77.3 Glucose Level 248 mg/dL (70-99) Calcium Level 9.5 mg/dL (8.5-10.1) Test 06/26/18 09:01 Glucose (Fingerstick) 241 mg/dL (70-99) Microbiology 06/21/18 Blood Culture - Final, Complete NO GROWTH AFTER 5 DAYS 06/25/18 - Final, Complete Medications Current Medications Sodium Chloride 1,000 ml @ 1,000 mls/hr 1X ONCE IV Last administered on 06/20/18at 15:49; Start 06/20/18 at 15:30; Stop 06/20/18 at 16:29; Status DC Ceftriaxone Sodium (Rocephin) 1 gm 1X ONCE IVP Last administered on 06/20/18 18:52; Start 06/20/18 at 19:00; Stop 06/20/18 at 19:01; Status DC Ondansetron HCl (Zofran) 4 mg PRN Q8HRS PRN IV NAUSEA/VOMITING Last administered on 06/21/18 13:52; Start 06/20/18 at 19:45; Stop 06/21/18 at 19:44; Status DC Morphine Sulfate (Morphine Sulfate) 2 mg PRN Q2HR PRN IV PAIN Last administered on 06/21/18 18:33; Start 06/20/18 at 19:45; Stop 06/21/18 at 19:44; Status DC Acetaminophen (Tylenol) 650 mg PRN Q4HRS PRN PO FEVER; Start 06/20/18 at 19:45; Stop 06/21/18 at 19:44; Status DC Enoxaparin Sodium (Lovenox 40mg Syringe) 40 mg Q24H SQ Last administered on 06/25/18 14:49; Start 06/21/18 at 16:00 Ceftriaxone Sodium (Rocephin) 1 gm Q24H IVP Last administered on 06/23/18 18:37; Start 06/21/18 at 19:00; Stop 06/24/18 at 14:00; Status DC Iohexol (Omnipaque 300 Mg/ml) 75 ml 1X ONCE IV Last administered on 06/21/18 14:26; Start 06/21/18 at 13:30; Stop 06/21/18 at 13:31; Status DC Iohexol (Omnipaque 240 Mg/ml) 30 ml 1X ONCE PO Last administered on 06/21/18 13:15; Start 06/21/18 at 13:15; Stop 06/21/18 at 13:17; Status DC Info (CONTRAST GIVEN -- Rx MONITORING) 1 each PRN DAILY PRN MC SEE COMMENTS; Start 06/21/18 at 13:30; Stop 06/23/18 at 13:29; Status DC Lactobacillus Rhamnosus (Culturelle) 1 cap BID PO Last administered on 06/26/18 07:58; Start 06/21/18 at 21:00 Morphine Sulfate (Morphine Sulfate) 2 mg PRN Q4HRS PRN IV SEVERE PAIN Last administered on 06/26/18 08:03; Start 06/21/18 at 21:15 Oxycodone/ Acetaminophen (Percocet 5/325) 1 tab PRN Q6HRS PRN PO MODERATE PAIN Last administered on 06/25/18 21:55; Start 06/21/18 at 21:15 Amiodarone HCl (Cordarone) 200 mg DAILY PO Last administered on 06/26/18 07:59; Start 06/22/18 at 13:00 Amitriptyline HCl (Elavil) 25 mg QHS PO Last administered on 06/25/18 20:49; Start 06/22/18 at 21:00 Docusate Sodium (Colace) 100 mg DAILY PO Last administered on 06/26/18 08:00; Start 06/22/18 at 13:00 Furosemide (Lasix) 20 mg DAILY PO Last administered on 06/26/18 07:58; Start 06/22/18 at 13:00 Gabapentin (Neurontin) 300 mg TID PO Last administered on 06/26/18 08:13; Start 06/22/18 at 14:00 Acetaminophen/ Hydrocodone Bitart (Lortab 10/325) 1 tab PRN BID PRN PO SEVERE PAIN Last administered on 06/25/18 08:59; Start 06/22/18 at 12:15 Lisinopril (Prinivil) 10 mg DAILY PO Last administered on 06/26/18 08:01; Start 06/22/18 at 13:00 Metoclopramide HCl (Reglan) 10 mg QIDACHS PO Last administered on 06/26/18 08:00; Start 06/22/18 at 16:30 Metoprolol Succinate (Toprol Xl) 100 mg BID PO Last administered on 06/26/18 08:00; Start 06/22/18 at 21:00 Potassium Chloride (Klor-Con) 10 meq DAILY PO Last administered on 06/26/18 08:00; Start 06/22/18 at 13:00 Tizanidine HCl (Zanaflex) 4 mg PRN Q12HRS PRN PO MUSCLE SPASMS Last adm inistered on 06/24/18 22:57; Start 06/22/18 at 12:15 Levetiracetam (Keppra) 500 mg BID PO Last administered on 06/26/18 07:58; Start 06/22/18 at 21:00 Ondansetron HCl (Zofran) 4 mg PRN Q4HRS PRN IV NAUSEA/VOMITING Last administered on 06/22/18 17:56; Start 06/22/18 at 12:45 Alprazolam (Xanax) 1 mg PRN TID PRN PO ANXIETY / AGITATION Last administered on 06/25/18 21:55; Start 06/22/18 at 20:45 Nicotine (Nicoderm Cq 21mg) 1 patch DAILY TD Last administered on 06/26/18 07:59; Start 06/23/18 at 13:00 Sertraline HCl (Zoloft) 25 mg DAILY PO Last administered on 06/26/18 07:59; Start 06/23/18 at 15:00 Cefdinir (Omnicef) 300 mg BID PO Last administered on 06/26/18 07:58; Start 06/24/18 at 21:00 Insulin Human Lispro (HumaLOG) 12 units 1X ONCE SQ Last administered on 06/24/18 14:48; Start 06/24/18 at 14:30; Stop 06/24/18 at 14:31; Status DC Insulin Human Lispro (HumaLOG) 0-7 UNITS TIDWMEALS SQ Last administered on 06/25/18at 16:56; Start 06/24/18 at 17:00 Dextrose (Dextrose 50%-Water Syringe) 12.5 gm PRN Q15MIN PRN IV SEE COMMENTS; Start 06/24/18 at 14:15 Ondansetron HCl (Zofran) 4 mg PRN Q6HRS PRN IV NAUSEA/VOMITING; Start 06/25/18 at 09:45; Stop 06/26/18 at 09:44; Status DC Fentanyl Citrate (Fentanyl 2ml Vial) 25 mcg PRN Q5MIN PRN IV MILD PAIN; Start 06/25/18 at 09:45; Stop 06/26/18 at 09:44; Status DC Fentanyl Citrate (Fentanyl 2ml Vial) 50 mcg PRN Q5MIN PRN IV MODERATE TO SEVERE PAIN; Start 06/25/18 at 09:45; Stop 06/26/18 at 09:44; Status DC Morphine Sulfate (Morphine Sulfate) 1 mg PRN Q10MIN PRN IV SEVERE PAIN; Start 06/25/18 at 09:45; Stop 06/26/18 at 09:44; Status DC Ringer's Solution 1,000 ml @ 30 mls/hr Q24H IV Last administered on 06/25/18at 10:32; Start 06/25/18 at 09:33; Stop 06/25/18 at 21:32; Status DC Lidocaine HCl (Xylocaine-Mpf 1% 2ml Vial) 2 ml PRN 1X PRN ID PRIOR TO IV START; Start 06/25/18 at 09:45; Stop 06/26/18 at 09:44; Status DC Hydromorphone HCl (Dilaudid) 0.5 mg PRN Q10MIN PRN IV SEV PAIN, Second choice; Start 06/25/18 at 09:45; Stop 06/26/18 at 09:44; Status DC Albuterol Sulfate (Ventolin Neb Soln) 2.5 mg PRN 1X PRN NEB SHORTNESS OF BREATH Last administered on 06/25/18at 10:37; Start 06/25/18 at 09:45; Stop 06/26/18 at 0 9:44; Status DC Lidocaine HCl (Lidocaine 2% Viscous) 100 ml PRN 1X PRN MM MOUTH PAIN Last administered on 06/25/18at 10:38; Start 06/25/18 at 09:45; Stop 06/26/18 at 09:44; Status DC Lidocaine HCl (Lidocaine 1% 20ml Vial) 20 ml PRN 1X PRN INJ SEE COMMENTS Last administered on 06/25/18at 10:38; Start 06/25/18 at 09:45; Stop 06/26/18 at 09:44; Status DC Epinephrine HCl (Adrenalin) 1 mg PRN 1X PRN INJ SEE COMMENTS; Start 06/25/18 at 09:45; Stop 06/26/18 at 09:44; Status DC Lidocaine HCl 50 ml PRN 1X PRN MM SEE COMMENTS Last administered on 06/25/18at 10:38; Start 06/25/18 at 09:45; Stop 06/26/18 at 09:44; Status DC Ringer's Solution 1,000 ml @ 75 mls/hr [id number] IV ; Start 06/25/18 at 10:30 Epinephrine HCl (Adrenalin) 1 mg STK-MED ONCE .ROUTE ; Start 06/25/18 at 10:33; Stop 06/25/18 at 10:34; Status DC Lidocaine HCl (Lidocaine 1% 20ml Vial) 20 ml STK-MED ONCE .ROUTE ; Start 06/25/18 at 10:33; Stop 06/25/18 at 10:34; Status DC Lidocaine HCl (Lidocaine 2% Viscous) 100 ml STK-MED ONCE .ROUTE ; Start 06/25/18 at 10:33; Stop 06/25/18 at 10:34; Status DC Lidocaine HCl 50 ml STK-MED ONCE .ROUTE ; Start 06/25/18 at 10:33; Stop 06/25/18 at 10:34; Status DC Propofol 40 ml @ As Directed STK-MED ONCE IV ; Start 06/25/18 at 10:58; Stop 06/25/18 at 10:59; Status DC Lidocaine HCl (Lidocaine Pf 2% Vial) 5 ml STK-MED ONCE .ROUTE ; Start 06/25/18 at 10:58; Stop 06/25/18 at 10:59; Status DC Active Scripts Active Reported Keppra (Levetiracetam) 500 Mg Tablet 500 Mg PO BID Tizanidine Hcl 4 Mg Tablet 1 Tab PO TID Docusate Sodium 100 Mg Capsule 1 Cap PO DAILY Furosemide 20 Mg Tablet 20 Mg PO DAILY Hydrocodone-Apap 10-325 (Hydrocodone Bit/Acetaminophen) 1 Tab Tablet 1 Tab PO BID PRN Metoclopramide Hcl 10 Mg Tablet 10 Mg PO QIDACHS Janumet 50-1,000 Mg Tablet (Sitagliptin Phos/Metformin Hcl) 1 Each Tablet 2 Each PO DAILYWSUP Amitriptyline Hcl 25 Mg Tablet 1 Tab PO QHS Potassium Chloride 10 Meq Tablet.er 10 Meq PO DAILY Alprazolam 1 Mg Tablet 1 Tab PO TID PRN Lisinopril 10 Mg Tablet 1 Tab PO DAILY Gabapentin (Gabapentin) 300 Mg Capsule 300 Mg PO TID Atorvastatin Calcium 80 Mg Tablet 1 Tab PO DAILY Metoprolol Succinate ( Xl ) (Metoprolol Succinate) 100 Mg Tab.er.24h 1 Tab PO BID Amiodarone Hcl 200 Mg Tablet 1 Tab PO DAILY Vitals/I & O Vital Sign - Last 24 Hours 06/25/18 06/25/18 06/25/18 06/25/18 10:13 10:18 10:18 11:23 Temp 98.0 98 97.6 98.0 98.0 97.6 Pulse 63 63 66 Resp 20 18 18 B/P (MAP) 97/62 Pulse Ox 97 99 100 O2 Delivery Room Air Room Air O2 Flow Rate 4 06/25/18 06/25/18 06/25/18 06/25/18 11:37 11:44 12:11 12:29 Temp 97.6 97.6 97.6 97.6 Pulse 69 69 68 72 Resp 18 18 B/P (MAP) 98/64 117/77 120/77 (91) 101/62 (75) Pulse Ox 96 96 O2 Delivery Room Air Room Air Simple Mask Simple Mask 06/25/18 06/25/18 06/25/18 06/25/18 12:30 12:39 12:57 13:10 Pulse 72 69 70 B/P (MAP) 94/54 (67) 110/60 (77) 92/72 (79) O2 Delivery Room Air 06/25/18 06/25/18 06/25/18 06/25/18 13:39 14:09 14:38 14:48 Pulse 68 68 69 B/P (MAP) 130/75 (93) 93/58 (70) 98/61 (73) O2 Delivery Room Air 06/25/18 06/25/18 06/25/18 06/25/18 16:50 19:00 19:38 20:49 Temp 100.0 100.0 Pulse 82 82 Resp 16 B/P (MAP) 124/84 (97) 124/84 Pulse Ox 100 O2 Delivery Room Air Room Air Room Air 06/25/18 06/25/18 06/25/18 06/25/18 20:50 21:55 22:55 23:00 Temp 98.1 98.1 Pulse 79 Resp 18 B/P (MAP) 110/69 (83) Pulse Ox 100 100 100 97 O2 Delivery Room Air Room Air Room Air Room Air O2 Flow Rate 4.0 4.0 4.0 06/26/18 06/26/18 06/26/18 06/26/18 03:00 03:03 03:33 06:40 Temp 98.0 97.6 98.0 97.6 Pulse 76 70 Resp 16 16 B/P (MAP) 111/73 (86) 116/75 (89) Pulse Ox 97 97 99 O2 Delivery Room Air Room Air Room Air Room Air O2 Flow Rate 4.0 06/26/18 06/26/18 06/26/18 06/26/18 07:59 08:00 08:01 08:03 Pulse 70 70 70 Resp 18 B/P (MAP) 116/75 116/75 116/75 Pulse Ox 99 O2 Delivery Room Air Intake and Output 06/25/18 06/25/18 06/26/18 15:00 23:00 07:00 Intake Total 500 ml 300 ml 200 ml Output Total 300 ml Balance 500 ml 300 ml -100 ml SARAH RUDD MD June 26, 2018 09:56
--- NOTE | 2018-06-26 09:59 | PDOC3 ---
Discharge Summary Date of Admission: Jun 20, 2018 Date of Discharge: June 26, 2018 Follow-Up: 3-5 days Admitting Diagnosis comment: DISCHARGE DX Chief Complaint impression acute TOXIC metabolic encephalopathy Altered mental status thrombocytopenia, IMPROVING METH ABUSE right middle lobe pneumonia infiltrate posteriorly of the right middle lobe, slightly nodular morphology for which short-term follow-up after treatment advised such as within 2 months. There is other likely fibrotic change of the bilateral hemithoraces. HX median sternotomy. There is coronary calcification. There is borderline enlarged pretracheal node as seen previously. 50 pound weight loss in 6 months, A SEVERE DECLINE CAD s/p CABG 2014. clinically stable. Chronic systolic CHF with ICM; Recent EF 35%, compensated Paroxysmal atrial flutter; hx DM2/HLP H/o substance abuse: meth in the past and marijuana. Potential opioid seeking. AICD in situ: [employer]. Interrogated and no abnormalities reported. 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 POOR halfway and short term prognosis due to severe substance abuse, high risk of complications with noncompliance PLAN BRONCHOSCOPY / IV ROCEPHIN 1 GM Q 24 HRS PULM CONSULT OK TO D/C SPOKE WITH DR SINCLAIR IN [facility] BONE MARROW BX DELAYED 06/[address] JOYCE, Prefers a bronch be done soon to exclude mass 39 min pt exam, chart review, D/C PLANNING > 50% of time spent with exam, chart review, pt care coordination, very guarded prognosis per my chart review DUE TO SUBSTANCE ABUSE, NONCOMPLIANCE History of Present Illness History of Present Illness Patient resting comfortably in bed, no apparent distress. angry at staff at times thrombocytopenia improving Vitals Vitals Vital Signs Date Time Temp Pulse Resp B/P (MAP) Pulse Ox O2 Delivery O2 Flow Rate FiO2 06/26/18 08:03 18 99 Room Air 06/26/18 08:01 70 116/75 06/26/18 06:40 97.6 97.6 06/26/18 03:33 4.0 Physical Exam Physical Exam GENERAL: Alert, oriented gentleman, not in distress. VITAL SIGNS: Stable, afebrile. HEENT: NAD. NECK: Supple, no JVP, no lymphadenopathy. LUNGS: Clear. HEART: S1, S2 regular. ABDOMEN: Benign. EXTREMITIES: No edema or cyanosis. SKIN: The patient does have a blister on the right lateral proximal thigh, clean without any infection. Rest of the skin examination was unremarkable. NEUROLOGIC: Alert, awake and appropriate. No focal neurologic deficit. General: Alert, Oriented X3, Cooperative, No acute distress, Other (seemed really annoyed when I asked questions or tried to examine him. ) Heart: Regular rate, Normal S1, Normal S2, No murmurs Lungs: Other (decrease bs) Abdomen: Normal bowel sounds, Soft, No tenderness Extremities: No cyanosis, No edema, Other (the right hip has a aqua cell foam dressing which I lifted up to observe a blister that is approximately 8 x 8 cm. It has serous but not bloody fluid. Unclear etiology. Mild hip pain with range of motion but the blister 10 cm distal to the greater trochanter, not over the greater trochanter, an unusual location for traumatic contact. ) Skin: No rashes, No significant lesion FINAL DIAGNOSIS Problems Medical Problems: (1) Altered mental status Status: Acute (2) Right lower lobe pulmonary infiltrate Status: Acute Brief Hospital Course Mr. Cervantes is a 57 old [sex] who presented with [ PNEUMONIA] Discharge Medications Current Medications Sodium Chloride 1,000 ml @ 1,000 mls/hr 1X ONCE IV Last administered on 06/20/18at 15:49; Start 06/20/18 at 15:30; Stop 06/20/18 at 16:29; Status DC Ceftriaxone Sodium (Rocephin) 1 gm 1X ONCE IVP Last administered on 06/20/18at 18:52; Start 06/20/18 at 19:00; Stop 06/20/18 at 19:01; Status DC Ondansetron HCl (Zofran) 4 mg PRN Q8HRS PRN IV NAUSEA/VOMITING Last administered on 06/21/18at 13:52; Start 06/20/18 at 19:45; Stop 06/21/18 at 19:44; Status DC Morphine Sulfate (Morphine Sulfate) 2 mg PRN Q2HR PRN IV PAIN Last administered on 06/21/18at 18:33; Start 06/20/18 at 19:45; Stop 06/21/18 at 19:44; Status DC Acetaminophen (Tylenol) 650 mg PRN Q4HRS PRN PO FEVER; Start 06/20/18 at 19:45; Stop 06/21/18 at 19:44; Status DC Enoxaparin Sodium (Lovenox 40mg Syringe) 40 mg Q24H SQ Last administered on 06/25/18 14:49; Start 06/21/18 at 16:00 Ceftriaxone Sodium (Rocephin) 1 gm Q24H IVP Last administered on 06/23/18 18:37; Start 06/21/18 at 19:00; Stop 06/24/18 at 14:00; Status DC Iohexol (Omnipaque 300 Mg/ml) 75 ml 1X ONCE IV Last administered on 06/21/18 14:26; Start 06/21/18 at 13:30; Stop 06/21/18 at 13:31; Status DC Iohexol (Omnipaque 240 Mg/ml) 30 ml 1X ONCE PO Last administered on 06/21/18at 13:15; Start 06/21/18 at 13:15; Stop 06/21/18 at 13:17; Status DC Info (CONTRAST GIVEN -- Rx MONITORING) 1 each PRN DAILY PRN MC SEE COMMENTS; Start 06/21/18 at 13:30; Stop 06/23/18 at 13:29; Status DC Lactobacillus Rhamnosus (Culturelle) 1 cap BID PO Last administered on 06/26/18 07:58; Start 06/21/18 at 21:00 Morphine Sulfate (Morphine Sulfate) 2 mg PRN Q4HRS PRN IV SEVERE PAIN Last administered on 06/26/18 08:03; Start 06/21/18 at 21:15 Oxycodone/ Acetaminophen (Percocet 5/325) 1 tab PRN Q6HRS PRN PO MODERATE PAIN Last administered on 06/25/18 21:55; Start 06/21/18 at 21:15 Amiodarone HCl (Cordarone) 200 mg DAILY PO Last administered on 06/26/18 07:59; Start 06/22/18 at 13:00 Amitriptyline HCl (Elavil) 25 mg QHS PO Last administered on 06/25/18 20:49; Start 06/22/18 at 21:00 Docusate Sodium (Colace) 100 mg DAILY PO Last administered on 06/26/18 08:00; Start 06/22/18 at 13:00 Furosemide (Lasix) 20 mg DAILY PO Last administered on 06/26/18 07:58; Start 06/22/18 at 13:00 Gabapentin (Neurontin) 300 mg TID PO Last administered on 06/26/18 08:13; Start 06/22/18 at 14:00 Acetaminophen/ Hydrocodone Bitart (Lortab 10/325) 1 tab PRN BID PRN PO SEVERE PAIN Last administered on 06/25/18 08:59; Start 06/22/18 at 12:15 Lisinopril (Prinivil) 10 mg DAILY PO Last administered on 06/26/18 08:01; Start 06/22/18 at 13:00 Metoclopramide HCl (Reglan) 10 mg QIDACHS PO Last administered on 06/26/18 08:00; Start 06/22/18 at 16:30 Metoprolol Succinate (Toprol Xl) 100 mg BID PO Last administered on 06/26/18 08:00; Start 06/22/18 at 21:00 Potassium Chloride (Klor-Con) 10 meq DAILY PO Last administered on 06/26/18 08:00; Start 06/22/18 at 13:00 Tizanidine HCl (Zanaflex) 4 mg PRN Q12HRS PRN PO MUSCLE SPASMS Last administered on 06/24/18 22:57; Start 06/22/18 at 12:15 Levetiracetam (Keppra) 500 mg BID PO Last administered on 06/26/18 07:58; Start 06/22/18 at 21:00 Ondansetron HCl (Zofran) 4 mg PRN Q4HRS PRN IV NAUSEA/VOMITING Last administered on 06/22/18 17:56; Start 06/22/18 at 12:45 Alprazolam (Xanax) 1 mg PRN TID PRN PO ANXIETY / AGITATION Last administered on 06/25/18 21:55; Start 06/22/18 at 20:45 Nicotine (Nicoderm Cq 21mg) 1 patch DAILY TD Last administered on 06/26/18 07:59; Start 06/23/18 at 13:00 Sertraline HCl (Zoloft) 25 mg DAILY PO Last administered on 06/26/18at 07:59; Start 06/23/18 at 15:00 Cefdinir (Omnicef) 300 mg BID PO Last administered on 06/26/18at 07:58; Start 06/24/18 at 21:00 Insulin Human Lispro (HumaLOG) 12 units 1X ONCE SQ Last administered on 06/24/18at 14:48; Start 06/24/18 at 14:30; Stop 06/24/18 at 14:31; Status DC Insulin Human Lispro (HumaLOG) 0-7 UNITS TIDWMEALS SQ Last administered on 06/25at 16:56; Start 06/24/18 at 17:00 Dextrose (Dextrose 50%-Water Syringe) 12.5 gm PRN Q15MIN PRN IV SEE COMMENTS; Start 06/24/18 at 14:15 Ondansetron HCl (Zofran) 4 mg PRN Q6HRS PRN IV NAUSEA/VOMITING; Start 06/25/18 at 09:45; Stop 06/26/18 at 09:44; Status DC Fentanyl Citrate (Fentanyl 2ml Vial) 25 mcg PRN Q5MIN PRN IV MILD PAIN; Start 06/25/18 at 09:45; Stop 06/26/18 at 09:44; Status DC Fentanyl Citrate (Fentanyl 2ml Vial) 50 mcg PRN Q5MIN PRN IV MODERATE TO SEVERE PAIN; Start 06/25/18 at 09:45; Stop 06/26/18 at 09:44; Status DC Morphine Sulfate (Morphine Sulfate) 1 mg PRN Q10MIN PRN IV SEVERE PAIN; Start 06/25/18 at 09:45; Stop 06/26/18 at 09:44; Status DC Ringer's Solution 1,000 ml @ 30 mls/hr Q24H IV Last administered on 06/25/18at 10:32; Start 06/25/18 at 09:33; Stop 06/25/18 at 21:32; Status DC Lidocaine HCl (Xylocaine-Mpf 1% 2ml Vial) 2 ml PRN 1X PRN ID PRIOR TO IV START; Start 06/25/18 at 09:45; Stop 06/26/18 at 09:44; Status DC Hydromorphone HCl (Dilaudid) 0.5 mg PRN Q10MIN PRN IV SEV PAIN, Second choice; Start 06/25/18 at 09:45; Stop 06/26/18 at 09:44; Status DC Albuterol Sulfate (Ventolin Neb Soln) 2.5 mg PRN 1X PRN NEB SHORTNESS OF BREATH Last administered on 06/25/18at 10:37; Start 06/25/18 at 09:45; Stop 06/26/18 at 09:44; Status DC Lidocaine HCl (Lidocaine 2% Viscous) 100 ml PRN 1X PRN MM MOUTH PAIN Last administered on 06/25/18at 10:38; Start 06/25/18 at 09:45; Stop 06/26/18 at 09:44; Status DC Lidocaine HCl (Lidocaine 1% 20ml Vial) 20 ml PRN 1X PRN INJ SEE COMMENTS Last administered on 06/25/18at 10:38; Start 06/25/18 at 09:45; Stop 06/26/18 at 09:44; Status DC Epinephrine HCl (Adrenalin) 1 mg PRN 1X PRN INJ SEE COMMENTS; Start 06/25/18 at 09:45; Stop 06/26/18 at 09:44; Status DC Lidocaine HCl 50 ml PRN 1X PRN MM SEE COMMENTS Last administered on 06/25/18at 10:38; Start 06/25/18 at 09:45; Stop 06/26/18 at 09:44; Status DC Ringer's Solution 1,000 ml @ 75 mls/hr [id number] IV ; Start 06/25/18 at 10:30 Epinephrine HCl (Adrenalin) 1 mg STK-MED ONCE .ROUTE ; Start 06/25/18 at 10:33; Stop 06/25/18 at 10:34; Status DC Lidocaine HCl (Lidocaine 1% 20ml Vial) 20 ml STK-MED ONCE .ROUTE ; Start 06/25/18 at 10:33; Stop 06/25/18 at 10:34; Status DC Lidocaine HCl (Lidocaine 2% Viscous) 100 ml STK-MED ONCE .ROUTE ; Start 06/25/18 at 10:33; Stop 06/25/18 at 10:34; Status DC Lidocaine HCl 50 ml STK-MED ONCE .ROUTE ; Start 06/25/18 at 10:33; Stop 06/25/18 at 10:34; Status DC Propofol 40 ml @ As Directed STK-MED ONCE IV ; Start 06/25/18 at 10:58; Stop 06/25/18 at 10:59; Status DC Lidocaine HCl (Lidocaine Pf 2% Vial) 5 ml STK-MED ONCE .ROUTE ; Start 06/25/18 at 10:58; Stop 06/25/18 at 10:59; Status DC Active Scripts Active Reported Keppra (Levetiracetam) 500 Mg Tablet 500 Mg PO BID Tizanidine Hcl 4 Mg Tablet 1 Tab PO TID Docusate Sodium 100 Mg Capsule 1 Cap PO DAILY Furosemide 20 Mg Tablet 20 Mg PO DAILY Hydrocodone-Apap 10-325 (Hydrocodone Bit/Acetaminophen) 1 Tab Tablet 1 Tab PO BID PRN Metoclopramide Hcl 10 Mg Tablet 10 Mg PO QIDACHS Janumet 50-1,000 Mg Tablet (Sitagliptin Phos/Metformin Hcl) 1 Each Tablet 2 Each PO DAILYWSUP Amitriptyline Hcl 25 Mg Tablet 1 Tab PO QHS Potassium Chloride 10 Meq Tablet.er 10 Meq PO DAILY Alprazolam 1 Mg Tablet 1 Tab PO TID PRN Lisinopril 10 Mg Tablet 1 Tab PO DAILY Gabapentin (Gabapentin) 300 Mg Capsule 300 Mg PO TID Atorvastatin Calcium 80 Mg Tablet 1 Tab PO DAILY Metoprolol Succinate ( Xl ) (Metoprolol Succinate) 100 Mg Tab.er.24h 1 Tab PO BID Amiodarone Hcl 200 Mg Tablet 1 Tab PO DAILY Vital Signs Vital Signs Date Time Temp Pulse Resp B/P (MAP) Pulse Ox O2 Delivery O2 Flow Rate FiO2 06/26/18 08:03 18 99 Room Air 06/26/18 08:01 70 116/75 06/26/18 06:40 97.6 97.6 06/26/18 03:33 4.0 Labs Laboratory Tests Test 06/24/18 11:42 06/24/18 13:57 06/24/18 16:47 06/24/18 20:16 Glucose (Fingerstick) 288 mg/dL (70-99) 312 mg/dL (70-99) 101 mg/dL (70-99) 142 mg/dL (70-99) Test 06/25/18 08:33 06/25/18 09:40 06/25/18 12:24 06/25/18 16:31 Glucose (Fingerstick) 199 mg/dL (70-99) 169 mg/dL (70-99) 302 mg/dL (70-99) White Blood Count 4.8 x10^3/uL (4.0-11.0) Red Blood Count 4.40 x10^6/uL (4.30-5.70) Hemoglobin 13.2 g/dL (13.0-17.5) Hematocrit 39.4 % (39.0-53.0) Mean Corpuscular Volume 89 fL (79-100) Mean Corpuscular Hemoglobin 30 pg (25-35) Mean Corpuscular Hemoglobin Concent 33 g/dL (31-37) Red Cell Distribution Width 14.7 % (11.5-14.5) Platelet Count 165 x10^3/uL (140-400) Neutrophils (%) (Auto) 58 % (31-73) Lymphocytes (%) (Auto) 27 % (24-48) Monocytes (%) (Auto) 12 % (0-9) Eosinophils (%) (Auto) 3 % (0-3) Basophils (%) (Auto) 1 % (0-3) Neutrophils # (Auto) 2.8 x10^3uL (1.8-7.7) Lymphocytes # (Auto) 1.3 x10^3/uL (1.0-4.8) Monocytes # (Auto) 0.5 x10^3/uL (0.0-1.1) Eosinophils # (Auto) 0.1 x10^3/uL (0.0-0.7) Basophils # (Auto) 0.0 x10^3/uL (0.0-0.2) Sodium Level 136 mmol/L (136-145) Potassium Level 5.0 mmol/L (3.5-5.1) Chloride Level 99 mmol/L (98-107) Carbon Dioxide Level 32 mmol/L (21-32) Anion Gap 5 (6-14) Blood Urea Nitrogen 32 mg/dL (8-26) Creatinine 1.0 mg/dL (0.7-1.3) Estimated GFR (Cockcroft-Gault) 77.3 Glucose Level 204 mg/dL (70-99) Calcium Level 9.3 mg/dL (8.5-10.1) Test 06/25/18 19:43 06/26/18 09:00 06/26/18 09:01 Glucose (Fingerstick) 273 mg/dL (70-99) 241 mg/dL (70-99) White Blood Count 5.8 x10^3/uL (4.0-11.0) Red Blood Count 4.35 x10^6/uL (4.30-5.70) Hemoglobin 12.8 g/dL (13.0-17.5) Hematocrit 39.2 % (39.0-53.0) Mean Corpuscular Volume 90 fL (79-100) Mean Corpuscular Hemoglobin 29 pg (25-35) Mean Corpuscular Hemoglobin Concent 33 g/dL (31-37) Red Cell Distribution Width 14.7 % (11.5-14.5) Platelet Count 158 x10^3/uL (140-400) Neutrophils (%) (Auto) 71 % (31-73) Lymphocytes (%) (Auto) 17 % (24-48) Monocytes (%) (Auto) 9 % (0-9) Eosinophils (%) (Auto) 3 % (0-3) Basophils (%) (Auto) 1 % (0-3) Neutrophils # (Auto) 4.1 x10^3uL (1.8-7.7) Lymphocytes # (Auto) 1.0 x10^3/uL (1.0-4.8) Monocytes # (Auto) 0.5 x10^3/uL (0.0-1.1) Eosinophils # (Auto) 0.2 x10^3/uL (0.0-0.7) Basophils # (Auto) 0.0 x10^3/uL (0.0-0.2) Sodium Level 136 mmol/L (136-145) Potassium Level 4.7 mmol/L (3.5-5.1) Chloride Level 99 mmol/L (98-107) Carbon Dioxide Level 30 mmol/L (21-32) Anion Gap 7 (6-14) Blood Urea Nitrogen 29 mg/dL (8-26) Creatinine 1.0 mg/dL (0.7-1.3) Estimated GFR (Cockcroft-Gault) 77.3 Glucose Level 248 mg/dL (70-99) Calcium Level 9.5 mg/dL (8.5-10.1) Laboratory Tests Test 06/25/18 12:24 06/25/18 16:31 06/25/18 19:43 06/26/18 09:00 Glucose (Fingerstick) 169 mg/dL (70-99) 302 mg/dL (70-99) 273 mg/dL (70-99) White Blood Count 5.8 x10^3/uL (4.0-11.0) Red Blood Count 4.35 x10^6/uL (4.30-5.70) Hemoglobin 12.8 g/dL (13.0-17.5) Hematocrit 39.2 % (39.0-53.0) Mean Corpuscular Volume 90 fL (79-100) Mean Corpuscular Hemoglobin 29 pg (25-35) Mean Corpuscular Hemoglobin Concent 33 g/dL (31-37) Red Cell Distribution Width 14.7 % (11.5-14.5) Platelet Count 158 x10^3/uL (140-400) Neutrophils (%) (Auto) 71 % (31-73) Lymphocytes (%) (Auto) 17 % (24-48) Monocytes (%) (Auto) 9 % (0-9) Eosinophils (%) (Auto) 3 % (0-3) Basophils (%) (Auto) 1 % (0-3) Neutrophils # (Auto) 4.1 x10^3uL (1.8-7.7) Lymphocytes # (Auto) 1.0 x10^3/uL (1.0-4.8) Monocytes # (Auto) 0.5 x10^3/uL (0.0-1.1) Eosinophils # (Auto) 0.2 x10^3/uL (0.0-0.7) Basophils # (Auto) 0.0 x10^3/uL (0.0-0.2) Sodium Level 136 mmol/L (136-145) Potassium Level 4.7 mmol/L (3.5-5.1) Chloride Level 99 mmol/L (98-107) Carbon Dioxide Level 30 mmol/L (21-32) Anion Gap 7 (6-14) Blood Urea Nitrogen 29 mg/dL (8-26) Creatinine 1.0 mg/dL (0.7-1.3) Estimated GFR (Cockcroft-Gault) 77.3 Glucose Level 248 mg/dL (70-99) Calcium Level 9.5 mg/dL (8.5-10.1) Test 06/26/18 09:01 Glucose (Fingerstick) 241 mg/dL (70-99) Allergies Allergies Coded Allergies Type Severity Reaction Last Updated Verified Penicillins Allergy Intermediate 06/25/18 Yes onion Allergy Intermediate 06/25/18 Yes Disposition/Orders: D/C to Home Patient Instructions D/C PLANNING 34 MIN SARAH RUDD MD June 26, 2018 09:59
[2018-06-26] MEDS ORDERED: LACT1CAP19 PO (10:03)
[2018-06-26] MEDS ORDERED: CEFD300C PO (10:03)
--- NOTE | 2018-06-26 10:04 | DISCH ---
DISCHARGE INSTRUCTIONS Condition on Discharge Condition on Discharge: Guarded Activity After Discharge Activity Instructions for Disc: No restrictions, Activity as tolerated Lifting Instructions after Dis: No heavy lifting Exercise Instruction after Dis: Walk 30 min, 3 x per week Driving Instructions after Dis: Do not drive Weight Bearing Status after Di: No restrictions Diet after Discharge Diet after Discharge: Cardiac Diet Texture: No Mixed Consistencies, Regular Liquid Texture: Thin Liquid Wound Incision Care Wound/Incision Care: Ice to area for comfort Checks after Discharge Checks after discharge: Check blood press - daily, Check blood sugar, ac/hs Contacting the DR. after DC Call your doctor for: If your condition worsens Treatment/Equipment after DC Adaptive Equipment Issued: None SARAH RUDD MD June 26, 2018 10:04
--- NOTE | 2018-06-26 10:35 | PDOC ---
PULMONARY PROGRESS NOTES Subjective BETTER TODAY Vitals Vital Signs Date Time Temp Pulse Resp B/P (MAP) Pulse Ox O2 Delivery O2 Flow Rate FiO2 06/26/18 08:03 18 99 Room Air 06/26/18 08:01 70 116/75 06/26/18 06:40 97.6 97.6 06/26/18 03:33 4.0 ROS: No Nausea, No Chest Pain, No Abdominal Pain, No Increase Cough Lungs: Other (decrease bs) Cardiovascular: S1, S2 Abdomen: Soft, Non-tender Neuro Exam: Alert Extremities: No Edema Skin: Warm Labs Laboratory Tests Test 06/24/18 11:42 06/24/18 13:57 06/24/18 16:47 06/24/18 20:16 Glucose (Fingerstick) 288 mg/dL (70-99) 312 mg/dL (70-99) 101 mg/dL (70-99) 142 mg/dL (70-99) Test 06/25/18 08:33 06/25/18 09:40 06/25/18 12:24 06/25/18 16:31 Glucose (Fingerstick) 199 mg/dL (70-99) 169 mg/dL (70-99) 302 mg/dL (70-99) White Blood Count 4.8 x10^3/uL (4.0-11.0) Red Blood Count 4.40 x10^6/uL (4.30-5.70) Hemoglobin 13.2 g/dL (13.0-17.5) Hematocrit 39.4 % (39.0-53.0) Mean Corpuscular Volume 89 fL (79-100) Mean Corpuscular Hemoglobin 30 pg (25-35) Mean Corpuscular Hemoglobin Concent 33 g/dL (31-37) Red Cell Distribution Width 14.7 % (11.5-14.5) Platelet Count 165 x10^3/uL (140-400) Neutrophils (%) (Auto) 58 % (31-73) Lymphocytes (%) (Auto) 27 % (24-48) Monocytes (%) (Auto) 12 % (0-9) Eosinophils (%) (Auto) 3 % (0-3) Basophils (%) (Auto) 1 % (0-3) Neutrophils # (Auto) 2.8 x10^3uL (1.8-7.7) Lymphocytes # (Auto) 1.3 x10^3/uL (1.0-4.8) Monocytes # (Auto) 0.5 x10^3/uL (0.0-1.1) Eosinophils # (Auto) 0.1 x10^3/uL (0.0-0.7) Basophils # (Auto) 0.0 x10^3/uL (0.0-0.2) Sodium Level 136 mmol/L (136-145) Potassium Level 5.0 mmol/L (3.5-5.1) Chloride Level 99 mmol/L (98-107) Carbon Dioxide Level 32 mmol/L (21-32) Anion Gap 5 (6-14) Blood Urea Nitrogen 32 mg/dL (8-26) Creatinine 1.0 mg/dL (0.7-1.3) Estimated GFR (Cockcroft-Gault) 77.3 Glucose Level 204 mg/dL (70-99) Calcium Level 9.3 mg/dL (8.5-10.1) Test 06/25/18 19:43 06/26/18 09:00 06/26/18 09:01 Glucose (Fingerstick) 273 mg/dL (70-99) 241 mg/dL (70-99) White Blood Count 5.8 x10^3/uL (4.0-11.0) Red Blood Count 4.35 x10^6/uL (4.30-5.70) Hemoglobin 12.8 g/dL (13.0-17.5) Hematocrit 39.2 % (39.0-53.0) Mean Corpuscular Volume 90 fL (79-100) Mean Corpuscular Hemoglobin 29 pg (25-35) Mean Corpuscular Hemoglobin Concent 33 g/dL (31-37) Red Cell Distribution Width 14.7 % (11.5-14.5) Platelet Count 158 x10^3/uL (140-400) Neutrophils (%) (Auto) 71 % (31-73) Lymphocytes (%) (Auto) 17 % (24-48) Monocytes (%) (Auto) 9 % (0-9) Eosinophils (%) (Auto) 3 % (0-3) Basophils (%) (Auto) 1 % (0-3) Neutrophils # (Auto) 4.1 x10^3uL (1.8-7.7) Lymphocytes # (Auto) 1.0 x10^3/uL (1.0-4.8) Monocytes # (Auto) 0.5 x10^3/uL (0.0-1.1) Eosinophils # (Auto) 0.2 x10^3/uL (0.0-0.7) Basophils # (Auto) 0.0 x10^3/uL (0.0-0.2) Sodium Level 136 mmol/L (136-145) Potassium Level 4.7 mmol/L (3.5-5.1) Chloride Level 99 mmol/L (98-107) Carbon Dioxide Level 30 mmol/L (21-32) Anion Gap 7 (6-14) Blood Urea Nitrogen 29 mg/dL (8-26) Creatinine 1.0 mg/dL (0.7-1.3) Estimated GFR (Cockcroft-Gault) 77.3 Glucose Level 248 mg/dL (70-99) Calcium Level 9.5 mg/dL (8.5-10.1) Laboratory Tests Test 06/25/18 12:24 06/25/18 16:31 06/25/18 19:43 06/26/18 09:00 Glucose (Fingerstick) 169 mg/dL (70-99) 302 mg/dL (70-99) 273 mg/dL (70-99) White Blood Count 5.8 x10^3/uL (4.0-11.0) Red Blood Count 4.35 x10^6/uL (4.30-5.70) Hemoglobin 12.8 g/dL (13.0-17.5) Hematocrit 39.2 % (39.0-53.0) Mean Corpuscular Volume 90 fL (79-100) Mean Corpuscular Hemoglobin 29 pg (25-35) Mean Corpuscular Hemoglobin Concent 33 g/dL (31-37) Red Cell Distribution Width 14.7 % (11.5-14.5) Platelet Count 158 x10^3/uL (140-400) Neutrophils (%) (Auto) 71 % (31-73) Lymphocytes (%) (Auto) 17 % (24-48) Monocytes (%) (Auto) 9 % (0-9) Eosinophils (%) (Auto) 3 % (0-3) Basophils (%) (Auto) 1 % (0-3) Neutrophils # (Auto) 4.1 x10^3uL (1.8-7.7) Lymphocytes # (Auto) 1.0 x10^3/uL (1.0-4.8) Monocytes # (Auto) 0.5 x10^3/uL (0.0-1.1) Eosinophils # (Auto) 0.2 x10^3/uL (0.0-0.7) Basophils # (Auto) 0.0 x10^3/uL (0.0-0.2) Sodium Level 136 mmol/L (136-145) Potassium Level 4.7 mmol/L (3.5-5.1) Chloride Level 99 mmol/L (98-107) Carbon Dioxide Level 30 mmol/L (21-32) Anion Gap 7 (6-14) Blood Urea Nitrogen 29 mg/dL (8-26) Creatinine 1.0 mg/dL (0.7-1.3) Estimated GFR (Cockcroft-Gault) 77.3 Glucose Level 248 mg/dL (70-99) Calcium Level 9.5 mg/dL (8.5-10.1) Test 06/26/18 09:01 Glucose (Fingerstick) 241 mg/dL (70-99) Medications Active Scripts Medications Dose Route/Sig Max Daily Dose Days Date Category Lantus Solostar (Insulin Glargine,Hum.rec.anlog) 100 Unit/1 Ml Insuln.pen 10 Units SQ QHS 30 03/23/18 Rx Carafate (Sucralfate) 1 Gm Tablet 1 Gm PO BIDWMEALS 30 03/23/18 Rx Percocet 5-325 Mg Tablet (Oxycodone/Acetaminophen) 1 Each Tablet 1 Tab PO PRN Q6HRS PRN 6 03/23/18 Rx Mag-Oxide (Magnesium Oxide) 400 Mg Tablet 1 Tab PO BID 30 03/23/18 Rx Cyclobenzaprine Hcl 10 Mg Tablet 10 Mg PO TID 03/12/18 Rx Alprazolam 1 Mg Tablet 1 Tab PO TID PRN 02/27/18 Reported Polyethylene Glycol 3350 17 Gm Powd.pack 17 Gm PO PRN DAILY PRN 10 02/12/18 Rx Colace (Docusate Sodium) 100 Mg Capsule 100 Mg PO [id number] 28 02/12/18 Rx Dicyclomine Hcl 10 Mg Capsule 20 Mg PO PRN QID PRN 14 01/29/18 Rx Lisinopril 10 Mg Tablet 1 Tab PO DAILY 01/27/18 Reported Amitriptyline Hcl 10 Mg Tablet 2 Tab PO QHS 01/27/18 Reported Potassium Chloride 20 Meq Tablet.er 20 Meq PO DAILY 01/27/18 Reported Levetiracetam 500 Mg Tablet 1 Tab PO BID 01/27/18 Reported Gabapentin (Gabapentin) 300 Mg Capsule 300 Mg PO TID 01/27/18 Reported Atorvastatin Calcium 80 Mg Tablet 1 Tab PO DAILY 01/27/18 Reported Metoprolol Succinate ( Xl ) (Metoprolol Succinate) 100 Mg Tab.er.24h 1 Tab PO DAILY 01/27/18 Reported Spironolactone 25 Mg Tablet 1 Tab PO DAILY 09/25/16 Reported Amiodarone Hcl 200 Mg Tablet 1 Tab PO DAILY 09/25/16 Reported Impression . IMPRESSION: 1. Abnormal x-ray, suspected pneumonia. 2. Tobacco dependent. 3. Acute exacerbation of chronic obstructive pulmonary disease. 4. Metabolic toxic encephalopathy. 5. Polysubstance use. The patient tested positive for cannabinoids, benzodiazepines, amphetamines and opiates. 6. Subjective weight loss. 7. Thrombocytopenia. Plan . D/W DR JOYCE S/P BRONCH / NO SIG SECRETIONS/ GS NEG SO FAR REPEAT CT IN 2 MONTHS VS JUST CXR FOLLOW ONC INPUT ABX PER ID CAN GO HOME ON PO ABX D/W PCP LUIGI SINCLAIR MD June 26, 2018 10:35
[2018-06-26 11:00] VITALS: BP 97/64
[2018-06-26] MEDS: oxyCODONE/APAP 5/325 1 TAB TABLET PO PRN (11:53)
--- NOTE | 2018-06-26 12:25 | PDOC ---
Infectious Disease Note Subjective Subjective pt is feeling good ROS ROS no n/v/d/ Vital Sign Vital Signs Vital Signs Date Time Temp Pulse Resp B/P (MAP) Pulse Ox O2 Delivery O2 Flow Rate FiO2 06/26/18 11:53 18 Room Air 06/26/18 11:00 98.0 69 97/64 (75) 98 98.0 06/26/18 03:33 4.0 Physical Exam PHYSICAL EXAM GENERAL: Alert, oriented gentleman, not in distress. VITAL SIGNS: Stable, afebrile. HEENT: NAD. NECK: Supple, no JVP, no lymphadenopathy. LUNGS: Clear. HEART: S1, S2 regular. ABDOMEN: Benign. EXTREMITIES: No edema or cyanosis. SKIN: The patient does have a blister on the right lateral proximal thigh, clean without any infection. Rest of the skin examination was unremarkable. NEUROLOGIC: Alert, awake and appropriate. No focal neurologic deficit. Labs Lab Laboratory Tests Test 06/25/18 16:31 06/25/18 19:43 06/26/18 09:00 06/26/18 09:01 Glucose (Fingerstick) 302 mg/dL (70-99) 273 mg/dL (70-99) 241 mg/dL (70-99) White Blood Count 5.8 x10^3/uL (4.0-11.0) Red Blood Count 4.35 x10^6/uL (4.30-5.70) Hemoglobin 12.8 g/dL (13.0-17.5) Hematocrit 39.2 % (39.0-53.0) Mean Corpuscular Volume 90 fL (79-100) Mean Corpuscular Hemoglobin 29 pg (25-35) Mean Corpuscular Hemoglobin Concent 33 g/dL (31-37) Red Cell Distribution Width 14.7 % (11.5-14.5) Platelet Count 158 x10^3/uL (140-400) Neutrophils (%) (Auto) 71 % (31-73) Lymphocytes (%) (Auto) 17 % (24-48) Monocytes (%) (Auto) 9 % (0-9) Eosinophils (%) (Auto) 3 % (0-3) Basophils (%) (Auto) 1 % (0-3) Neutrophils # (Auto) 4.1 x10^3uL (1.8-7.7) Lymphocytes # (Auto) 1.0 x10^3/uL (1.0-4.8) Monocytes # (Auto) 0.5 x10^3/uL (0.0-1.1) Eosinophils # (Auto) 0.2 x10^3/uL (0.0-0.7) Basophils # (Auto) 0.0 x10^3/uL (0.0-0.2) Sodium Level 136 mmol/L (136-145) Potassium Level 4.7 mmol/L (3.5-5.1) Chloride Level 99 mmol/L (98-107) Carbon Dioxide Level 30 mmol/L (21-32) Anion Gap 7 (6-14) Blood Urea Nitrogen 29 mg/dL (8-26) Creatinine 1.0 mg/dL (0.7-1.3) Estimated GFR (Cockcroft-Gault) 77.3 Glucose Level 248 mg/dL (70-99) Calcium Level 9.5 mg/dL (8.5-10.1) Test 06/26/18 11:42 Glucose (Fingerstick) 263 mg/dL (70-99) Micro Microbiology 06/21/18 Blood Culture - Preliminary, Resulted NO GROWTH AFTER 3 DAYS Objective Assessment 1. Pneumonia. He does not behave like the garden variety, community-acquired pneumonia, it is chronic pneumonia, a possibility of tuberculosis is there because of his risk factors. 2. Significant weight loss. rule out infection , but can also sec to drug use. 3. Drug use. 4. Encephalopathy. Plan Plan of Care bronch done, follow cultures can be d/c ed on po antibiotics INGRID JOYCE MD June 26, 2018 12:25
--- NOTE | 2018-06-26 18:06 | PATHOLOGY ---
Note [facility] Accession Number: [id number] TESTS RESULT FLAG UNITS REF RANGE LAB Clinician Provided Cytology Information No. of containers..01 Other (Miscellaneous) Source: BAL RML/RLL DIAGNOSIS: BAL RML/RLL NEGATIVE FOR MALIGNANT CELLS. FOCALLY REACTIVE BRONCHIAL EPITHELIAL CELLS, PULMONARY MACROPHAGES, AND FEW INFLAMMATORY CELLS PRESENT. Signed out by: 02 Nicolás Hutson MD, Pathologist NPI- [id number] Performed by: Deandra Seth, Music Engraver ([facility]) Gross description: 01 5ML, CLEAR, COLORLESS /LCS FLAG LEGEND: L-Low Normal,H-High Normal,LL-Alert Low,HH-Alert High <-Panic Low,>-Panic High,A-Abnormal,AA-Critical Abnormal Performed at: 01 [place] [facility] [address] [place] [address] Erich Cody MD, 02 [facility] [address] [place] [address] Nicolás Hutson MD, Specimen Comment: A courtesy copy of this report has been sent to Specimen Comment: [phone], , . Specimen Comment: Report sent to ,DR ANGULO / DR MEDINA Specimen Comment: A duplicate report has been generated due to demographic updates. Performed at: 01 [facility] [place] [address], [place], [place] [id number] MD Erich Cody MD Phone: [phone]
== END 2018-06-26 14:15 | disposition home or self-care (01) | DRG 177 ==
LOC: ER 15:04 → 5 NORTH 18:37
PROVIDERS: ADMIT Internal Medicine; ATTEND Internal Medicine
PROC: 4B02XTZ Measurement of Cardiac Defibrillator, External Approach (ICD-10-PCS; 2018-06-22)
PROC: 0B9D8ZX Drainage of Right Middle Lung Lobe, Via Natural or Artificial Opening Endoscopic, Diagnostic (ICD-10-PCS; 2018-06-25)
PROC: 0B9F8ZX Drainage of Right Lower Lung Lobe, Via Natural or Artificial Opening Endoscopic, Diagnostic (ICD-10-PCS; principal; 2018-06-25 11:00)
DX: J69.0 Pneumonitis due to inhalation of food and vomit (principal); G92 Toxic encephalopathy; E87.1 Hypo-osmolality and hyponatremia; I50.22 Chronic systolic (congestive) heart failure; I48.92 Unspecified atrial flutter; F13.20 Sedative, hypnotic or anxiolytic dependence, uncomplicated; R63.4 Abnormal weight loss; D69.6 Thrombocytopenia, unspecified; E78.5 Hyperlipidemia, unspecified; F32.9 Major depressive disorder, single episode, unspecified; E11.42 Type 2 diabetes mellitus with diabetic polyneuropathy; G89.29 Other chronic pain; I11.0 Hypertensive heart disease with heart failure; I25.10 Atherosclerotic heart disease of native coronary artery without angina pectoris; I48.91 Unspecified atrial fibrillation; I25.5 Ischemic cardiomyopathy; J43.9 Emphysema, unspecified; M19.90 Unspecified osteoarthritis, unspecified site; I05.0 Rheumatic mitral stenosis; F11.10 Opioid abuse, uncomplicated; F15.10 Other stimulant abuse, uncomplicated; F12.10 Cannabis abuse, uncomplicated; S70.321A Blister (nonthermal), right thigh, initial encounter; F17.200 Nicotine dependence, unspecified, uncomplicated; X58.XXXA Exposure to other specified factors, initial encounter; Y93.89 Activity, other specified; Y92.89 Other specified places as the place of occurrence of the external cause; Y99.8 Other external cause status; Z79.4 Long term (current) use of insulin; I25.2 Old myocardial infarction; Z59.0 Homelessness; Z90.49 Acquired absence of other specified parts of digestive tract; Z91.19 Patient's noncompliance with other medical treatment and regimen; Z86.72 Personal history of thrombophlebitis; Z86.73 Personal history of transient ischemic attack (TIA), and cerebral infarction without residual deficits; Z86.718 Personal history of other venous thrombosis and embolism; Z87.01 Personal history of pneumonia (recurrent); Z95.1 Presence of aortocoronary bypass graft; Z95.5 Presence of coronary angioplasty implant and graft; Z95.810 Presence of automatic (implantable) cardiac defibrillator; Z80.9 Family history of malignant neoplasm, unspecified; Z82.49 Family history of ischemic heart disease and other diseases of the circulatory system; Z88.0 Allergy status to penicillin; Z91.018 Allergy to other foods; Z68.21 Body mass index [BMI] 21.0-21.9, adult
CPT/HCPCS: 31622; 36415; 70450; 71045; 71260; 73501; 74177; 80048; 80053; 80307; 80329; 81001; 82553; 82962; 83615; 83690; 83735; 83880; 84443; 84484; 85025; 85610; 85730; 86481; 86705; 86709; 86803; 87040; 87070; 87102; 87116; 87205; 87340; 88112; 93005; 94640; 96361; 96374; G0480; J0171; J0696; J1650; J1815; J2001; J2270; J2405; J2704; J7030; J7120; J7613; J8597; Q9966; Q9967; 99285-25

== ENCOUNTER 2018-07-11 21:04 | Inpatient (IN) | payer MEDICAID ==
[~2018-07-11] VITALS: Ht 182.9 cm; Wt 78.1 kg
[~2018-07-11 21:04] MED LIST changes: +AMIT25TA PO; +CEFD300C PO; +DOCU100C28 PO; +FURO20TA3 PO; +HYDR-2769 PO; +LACT1CAP19 PO; +LEVE500T56 PO; +METO10TA PO; +POTA10TA12 PO
[2018-07-11] MEDS ORDERED: IV NORMAL SALINE 1000ML BAG 1,000 ML IV ONE (21:45)
[2018-07-11] MEDS ORDERED: ASPIRIN 325 MG TABLET PO ONE (22:00)
[2018-07-11] MEDS ORDERED: KETOROLAC 15 MG/ML VIAL. IV ONE (22:00)
[2018-07-11] MEDS ORDERED: NEOMY/BACITR/POLYMYXIN OINT PACKET. TP ONE (22:00)
[2018-07-11 22:06] LABS: BASO # 0.1 x10^3/uL (0.0-0.2); BASO % 1 % (0-3); EOS # 0.1 x10^3/uL (0.0-0.7); EOS % 1 % (0-3); HEMATOCRIT 40.6 % (39.0-53.0); HEMOGLOBIN 13.3 g/dL (13.0-17.5); LYMPH # 0.7 x10^3/uL (1.0-4.8); LYMPH % 6 % (24-48); MEAN CORPUSCULAR HEMOGLOBIN 29 pg (25-35); MEAN CORPUSCULAR HGB CONC 33 g/dL (31-37); MEAN CORPUSCULAR VOLUME 90 fL (79-100); MONO # 0.5 x10^3/uL (0.0-1.1); MONO % 4 % (0-9); NEUT # 11.4 x10^3uL (1.8-7.7); NEUT % 89 % (31-73); PLATELET COUNT 268 x10^3/uL (140-400); RED BLOOD COUNT 4.52 x10^6/uL (4.30-5.70); RED CELL DISTRIBUTION WIDTH 14.4 % (11.5-14.5); WHITE BLOOD COUNT 12.8 x10^3/uL (4.0-11.0)
[2018-07-11 22:14] LABS: PROTHROMBIN TIME PATIENT 12.9 SEC (11.7-14.0)
[2018-07-11 22:16] LABS: CALCIUM 9.2 mg/dL (8.5-10.1); GFR 77.3; POTASSIUM 4.9 mmol/L (3.5-5.1)
--- NOTE | 2018-07-11 22:18 | PHYS DOC ---
Past Medical History Past Medical History: CAD, CVA, Diabetes-Type II, Hypertension, DE, Pneumonia, Seizure, Stroke, Other Additional Past Medical Histor: DE X 5, STROKE X 3 Past Surgical History: Appendectomy, Cholecystectomy, Coronary Bypass Surgery, Pacemaker, Tonsillectomy, Other Additional Past Surgical Histo: Multiple Cardiac Stents, ICD, CABGX4 Alcohol Use: None Drug Use: Marijuana Adult General Chief Complaint Chief Complaint: CHEST WALL PAIN HPI HPI Patient is a 57 year old male with an extensive history of coronary artery disease presents with sharp, intermittent chest pain that began earlier today when he was sitting up from his recliner and felt something "pop" in his chest. He describes the pain as sharp and extending up into his left shoulder, going d own his left arm, and up into his jaw. He states the pain is a 7 out of 10. He states the pain is worse when laying down. He denies taking an aspirin before coming to the ED. He denies any nausea or vomiting. He endorses a history of heartburn but states the symptoms are not similar to that discomfort. All other review of systems is negative at this time. Review of Systems Review of Systems Constitutional: Denies fever or chills [] Eyes: Denies change in visual acuity, redness, or eye pain [] HENT: Denies nasal congestion or sore throat [] Respiratory: Denies cough or shortness of breath [] Cardiovascular: left-sided, sharp chest pain. GI: Denies abdominal pain, nausea, vomiting, bloody stools or diarrhea [] : Denies dysuria or hematuria [] Integument: Denies rash or skin lesions [] Neurologic: Denies headache, focal weakness or sensory changes [] Complete systems were reviewed and found to be within normal limits, except as documented in this note. Current Medications Current Medications Current Medications Medications (Trade) Dose Ordered Sig/Doris Start Time Stop Time Status Last Admin Dose Admin Aspirin (Yoli Aspirin) 325 mg 1X ONCE 07/11/18 22:00 07/11/18 22:01 DC 07/11/18 22:14 325 MG Ketorolac Tromethamine (Toradol 15mg Vial) 15 mg 1X ONCE 07/11/18 22:00 07/11/18 22:01 DC 07/11/18 22:15 15 MG Neomycin/ Polymyxin/ Bacitracin (Triple Antibiotic Ointment) 1 pkt 1X ONCE 07/11/18 22:00 07/11/18 22:01 DC 07/11/18 22:15 1 PKT Sodium Chloride 1,000 ml @ 1,000 mls/hr 1X ONCE 07/11/18 21:45 07/11/18 22:44 DC 07/11/18 22:14 1,000 MLS/HR Allergies Allergies Allergies Coded Allergies Type Severity Reaction Last Updated Verified Penicillins Allergy Intermediate 06/25/18 Yes onion Allergy Intermediate 06/25/18 Yes Physical Exam Physical Exam Constitutional: Well developed, well nourished, no acute distress, non-toxic appearance. [] HENT: Normocephalic, atraumatic, bilateral external ears normal, oropharynx moist, no oral exudates, nose normal. [] Eyes: EOMI, conjunctiva normal, no discharge. [] Cardiovascular: Heart rate regular rhythm, no murmur [] Lungs & Thorax: Bilateral breath sounds clear to auscultation [] Abdomen: soft, no tenderness, no masses, no pulsatile masses. [] Skin: Warm, dry, no erythema, no rash. [] Extremities: No tenderness, no cyanosis, no clubbing, ROM intact, no edema. [] Neurologic: Alert and oriented X 3, normal motor function, normal sensory function, no focal deficits noted. [] Psychologic: Affect normal, judgement normal, mood normal. [] Current Patient Data Vital Signs Vital Signs Date Time Temp Pulse Resp B/P (MAP) Pulse Ox O2 Delivery O2 Flow Rate FiO2 07/11/18 22:03 87 16 155/91 (112) 92 Room Air 07/11/18 21:33 3.0 07/11/18 21:07 98.3 98.3 Lab Values Laboratory Tests Test 07/11/18 21:59 07/11/18 22:16 White Blood Count 12.8 x10^3/uL (4.0-11.0) H Red Blood Count 4.52 x10^6/uL (4.30-5.70) Hemoglobin 13.3 g/dL (13.0-17.5) Hematocrit 40.6 % (39.0-53.0) Mean Corpuscular Volume 90 fL (79-100) Mean Corpuscular Hemoglobin 29 pg (25-35) Mean Corpuscular Hemoglobin Concent 33 g/dL (31-37) Red Cell Distribution Width 14.4 % (11.5-14.5) Platelet Count 268 x10^3/uL (140-400) Neutrophils (%) (Auto) 89 % (31-73) H Lymphocytes (%) (Auto) 6 % (24-48) L Monocytes (%) (Auto) 4 % (0-9) Eosinophils (%) (Auto) 1 % (0-3) Basophils (%) (Auto) 1 % (0-3) Neutrophils # (Auto) 11.4 x10^3uL (1.8-7.7) H Lymphocytes # (Auto) 0.7 x10^3/uL (1.0-4.8) L Monocytes # (Auto) 0.5 x10^3/uL (0.0-1.1) Eosinophils # (Auto) 0.1 x10^3/uL (0.0-0.7) Basophils # (Auto) 0.1 x10^3/uL (0.0-0.2) Segmented Neutrophils % 90 % (35-66) H Band Neutrophils % 1 % (0-9) Lymphocytes % 5 % (24-48) L Monocytes % 3 % (0-10) Basophils % 1 % (0-3) Platelet Estimate Adequate (ADEQUATE) Prothrombin Time 12.9 SEC (11.7-14.0) Prothrombin Time INR 1.0 (0.8-1.1) Sodium Level 138 mmol/L (136-145) Potassium Level 4.9 mmol/L (3.5-5.1) Chloride Level 99 mmol/L (98-107) Carbon Dioxide Level 32 mmol/L (21-32) Anion Gap 7 (6-14) Blood Urea Nitrogen 20 mg/dL (8-26) Creatinine 1.0 mg/dL (0.7-1.3) Estimated GFR (Cockcroft-Gault) 77.3 BUN/Creatinine Ratio 20 (6-20) Glucose Level 265 mg/dL (70-99) H Calcium Level 9.2 mg/dL (8.5-10.1) Magnesium Level 1.3 mg/dL (1.8-2.4) L Total Bilirubin 0.4 mg/dL (0.2-1.0) Aspartate Amino Transferase (AST) 39 U/L (15-37) H Alanine Aminotransferase (ALT) 41 U/L (16-63) Alkaline Phosphatase 171 U/L (46-116) H Creatine Kinase 33 U/L (39-308) L Creatine Kinase MB (Mass) 1.0 ng/mL (0.0-3.6) Creatine Kinase MB Relative Index % (0-4) Troponin I Quantitative < 0.017 ng/mL (0.000-0.055) TD-Vfz-Y-Type Natriuretic Peptide 1565 pg/mL (0-124) H Total Protein 7.7 g/dL (6.4-8.2) Albumin 3.4 g/dL (3.4-5.0) Albumin/Globulin Ratio 0.8 (1.0-1.7) L Lipase 190 U/L (73-393) Ethyl Alcohol Level < 10 mg/dL (0-10) Urine Collection Type Unknown Urine Color Yellow Urine Clarity Clear Urine pH 6.0 Urine Specific [place] 1.015 Urine Protein Negative mg/dL (NEG-TRACE) Urine Glucose (UA) 500 mg/dL (NEG) Urine Ketones (Stick) Negative mg/dL (NEG) Urine Blood Negative (NEG) Urine Nitrite Negative (NEG) Urine Bilirubin Negative (NEG) Urine Urobilinogen Dipstick 1.0 mg/dL (0.2 mg/dL) Urine Leukocyte Esterase Negative (NEG) Urine RBC 1-2 /HPF (0-2) Urine WBC 0 /HPF (0-4) Urine Squamous Epithelial Cells Occ /LPF Urine Bacteria 0 /HPF (0-FEW) Urine Opiates Screen Pos (NEG) Urine Methadone Screen Neg (NEG) Urine Barbiturates Neg (NEG) Urine Phencyclidine Screen Neg (NEG) Urine Amphetamine/Methamphetamine Neg (NEG) Urine Benzodiazepines Screen Pos (NEG) Urine Cocaine Screen Neg (NEG) Urine Cannabinoids Screen Pos (NEG) Urine Ethyl Alcohol Neg (NEG) Laboratory Tests 07/11/18 21:59 Laboratory Tests 07/11/18 21:59 EKG EKG @2203 NSR at 92bpm, NO ST elevation, occasional PVC Radiology/Procedures Radiology/Procedures 2 view chest x ray ordered. (preliminary reading by ED physician showed no con solidations or other acutely concerning features.) Course & Med Decision Making Course & Med Decision Making Mr. Cervantes is a 57-year-old male who presents with sharp, intermittent chest pain when he felt a "pop" in his chest after sitting up from his recliner. Yolanda smith was in no acute distress upon presentation but did display significant tenderness to palpation over his left chest. EKG and initial troponins were reassuring. However, due to his extensive past medical history of coronary artery disease, further evaluation was deemed necessary. Patient requiring admission for further evaluation and treatment. Discussed with Dr. Sorto who is in agreement with admission. Discussed findings and plan with patient and family, who acknowledge understanding and agreement. Dragon Disclaimer Dragon Disclaimer This electronic medical record was generated, in whole or in part, using a voice recognition dictation system. Departure Departure Impression: Primary Impression: Chest pain, rule out acute myocardial infarction Disposition: ADMITTED INPATIENT Admitting Physician: Mack Bryan Condition: STABLE Referrals: NO PCP (PCP) The HEART Score for CP Pts HEART Score for Chest Pain: HEART Score for Chest Pain Response (Comments) Value History Moderately Suspicious 1 ECG Normal 0 Age >45 - < 65 1 Risk Factors >3 Risk Factors or Hx CAD 2 Troponin < Normal Limit 0 Total 4 Risk Factors: Risk Factors: DM, Current or recent (<one month) smoker, HTN, HLP, family history of CAD, obesity. Risk Scores: Score 0 - 3: 2.5% MACE over next 6 weeks - Discharge Home Score 4 - 6: 20.3% MACE over next 6 weeks - Admit for Clinical Observation Score 7 - 10: 72.7% MACE over next 6 weeks - Early Invasive Strategies DOUG WAITE DO July 11, 2018 22:18
[2018-07-11 22:22] LABS: ALBUMIN 3.4 g/dL (3.4-5.0); ALBUMIN/GLOBULIN RATIO 0.8 (1.0-1.7); MAGNESIUM 1.3 mg/dL (1.8-2.4); TOTAL BILIRUBIN 0.4 mg/dL (0.2-1.0); TOTAL PROTEIN 7.7 g/dL (6.4-8.2)
[2018-07-11 22:23] LABS: BILIRUBIN,URINE NEGATIVE (NEG); CLARITY,URINE CLEAR; COLOR,URINE YELLOW; NITRITE,URINE NEGATIVE (NEG); PROTEIN,URINE NEGATIVE (NEG-TRACE)
[2018-07-11 22:25] LABS: % BANDS 1 % (0-9); % BASOS 1 % (0-3); % LYMPHS 5 % (24-48); % MONOS 3 % (0-10); % SEGS 90 % (35-66); PLT ESTIMATE ADEQUATE (ADEQUATE)
[2018-07-11 22:28] LABS: BARBITURATES NEG (NEG); BENZODIAZEPINES POS (NEG); CANNABINOIDS POS (NEG); COCAINE NEG (NEG); METHADONE NEG (NEG); OPIATES POS (NEG); PHENCYCLIDINE NEG (NEG)
[2018-07-11 22:29] LABS: AMPHETAMINE/METHAMPHETAMINE NEG (NEG)
[2018-07-11] MEDS ORDERED: ONDANSETRON PF 4 MG/2 ML VIAL. IV PRN (22:30)
[2018-07-11] MEDS ORDERED: DEXTROSE 50% 25 GM / 50ML DISP.SYRIN. IV PRN (22:30)
[2018-07-11 22:31] LABS: CREATINE KINASE 33 U/L (39-308)
[2018-07-11 22:32] LABS: BACTERIA,URINE 0 /HPF (0-FEW); SQUAMOUS EPITHELIAL CELL,UR OCC /LPF; WBC,URINE 0 /HPF (0-4)
[2018-07-11] MEDS ORDERED: levETIRAcetam 500 MG TABLET PO ONE (23:45)
[2018-07-11] MEDS ORDERED: GABAPENTIN 300 MG CAPSULE. PO ONE (23:45)
[2018-07-11] MEDS ORDERED: AMITRIPTYLINE HCL 25 MG TABLET. PO ONE (23:45)
[2018-07-11] MEDS ORDERED: METOCLOPRAMIDE 10 MG TABLET. PO ONE (23:45)
[2018-07-11] MEDS ORDERED: METOPROLOL SUCC 24HR ER 100 MG TAB.ER.24H. PO ONE (23:45)
[2018-07-11 23:56] VITALS: BP 148/91
[2018-07-11] MEDS: HYDROcodone/APAP 10/325 1 TAB TABLET PO PRN (23:59)
[2018-07-12 03:37] VITALS: BP 127/80
[2018-07-12] MEDS: fentaNYL PF VIAL 100 MCG/2 ML VIAL IV PRN ×4 (04:09→12:54)
--- NOTE | 2018-07-12 05:45 | RAD ---
AP chest. HISTORY: Chest pain AP view was taken of the chest. The patient had previous valve surgery. Pacemaker on the left is unchanged. There is mild vascular congestion. There is a probable small left effusion. There is mild pulmonary edema although pneumonia would be possible. IMPRESSION: 1. Congestive heart failure. Electronically signed by: Wili Plata MD (07/12/2018 5:42 AM) [facility]
[2018-07-12 06:53] LABS: CALCIUM 8.1 mg/dL (8.5-10.1); GFR 77.3; POTASSIUM 5.2 mmol/L (3.5-5.1)
[2018-07-12 07:00] VITALS: BP 129/80
[2018-07-12 07:00] LABS: BASO % 0 % (0-3); CHOLESTEROL/HDL RATIO 2.3; EOS # 0.1 x10^3/uL (0.0-0.7); EOS % 2 % (0-3); HEMOGLOBIN 11.4 g/dL (13.0-17.5); LYMPH # 1.1 x10^3/uL (1.0-4.8); LYMPH % 15 % (24-48); MEAN CORPUSCULAR HEMOGLOBIN 31 pg (25-35); MEAN CORPUSCULAR HGB CONC 34 g/dL (31-37); MEAN CORPUSCULAR VOLUME 89 fL (79-100); MONO # 0.5 x10^3/uL (0.0-1.1); MONO % 6 % (0-9); NEUT # 5.8 x10^3uL (1.8-7.7); NEUT % 77 % (31-73); PLATELET COUNT 208 x10^3/uL (140-400); RED BLOOD COUNT 3.69 x10^6/uL (4.30-5.70); RED CELL DISTRIBUTION WIDTH 14.6 % (11.5-14.5); WHITE BLOOD COUNT 7.5 x10^3/uL (4.0-11.0)
[2018-07-12] MEDS: POTASSIUM CHLORIDE 10 MEQ TABLET.ER. PO SCH (08:00)
[2018-07-12] MEDS: DOCUSATE SODIUM 100 MG CAPSULE. PO SCH (08:43)
[2018-07-12] MEDS: METOCLOPRAMIDE 10 MG TABLET. PO SCH ×4 (08:43→21:53)
[2018-07-12] MEDS: AMIODARONE HCL 200 MG TABLET. PO SCH (08:43)
[2018-07-12] MEDS: FUROSEMIDE 20 MG TABLET PO SCH (08:44)
[2018-07-12] MEDS: METOPROLOL SUCC 24HR ER 100 MG TAB.ER.24H. PO SCH ×2 (08:44→21:53)
[2018-07-12] MEDS: LISINOPRIL 10 MG TABLET PO SCH (08:44)
[2018-07-12] MEDS: GABAPENTIN 300 MG CAPSULE. PO SCH ×3 (08:47→21:53)
[2018-07-12] MEDS: levETIRAcetam 500 MG TABLET PO SCH ×2 (08:47→21:53)
[2018-07-12] MEDS: INSULIN LISPRO 300 UNITS/3 ML INSULN.PEN. SQ SCH ×3 (08:55→17:18)
[2018-07-12] MEDS: LACTOBACILLUS RHAMNOSUS GG 1 CAPSULE. PO SCH ×2 (08:56→21:53)
--- NOTE | 2018-07-12 09:04 | PDOC2 ---
CONSULT Date of Consult Date of Consult DATE: 07/12/18 TIME: 09:04 Reason for Consult Reason for Consult: Chest pain Referring Physician Referring Physician: Dr. Sorto Identification/Chief Complaint Chief Complaint Chest pain Source Source: Chart review, Patient History of Present Illness Reason for Visit: 57-year-old male with history of coronary artery disease s/p CABG in 2014, ischemic cardiomyopathy s/p AICD implantation and paroxysmal atrial fibrillation who usually follows with Dr. Olguin at [facility] presented with left-sided chest pain radiating to left arm and jaw, 7/10 severity worse with movement of his body. This apparently started when he was sitting up from his recliner. He denied any exertional component. He also denied any orthopnea/PND, palpitations or syncope. Past Medical History Cardiovascular: CAD Pulmonary: Bronchitis CENTRAL NERVOUS SYSTEM: CVA, Periperal neuropathy GI: Other Heme/Onc: No pertinent hx Hepatobiliary: No pertinent hx Musculoskeletal: Osteoarthritis Rheumatologic: No pertinent hx Infectious disease: No pertinent hx Renal/: No pertinent hx Past Surgical History Past Surgical History: Pacemaker, Cholecystectomy, CABG, Cystoscopy, Ton sillectomy Family History Family History: Coronary Artery Disease Social History ALCOHOL: rare Drugs: Marijuana Lives: with Family Current Medications Current Medications Current Medications Aspirin (Yoli Aspirin) 325 mg 1X ONCE PO Last administered on 07/11/18at 22:14; Start 07/11/18 at 22:00; Stop 07/11/18 at 22:01; Status DC Sodium Chloride 1,000 ml @ 1,000 mls/hr 1X ONCE IV Last administered on 07/11/18at 22:14; Start 07/11/18 at 21:45; Stop 07/11/18 at 22:44; Status DC Ketorolac Tromethamine (Toradol 15mg Vial) 15 mg 1X ONCE IV Last administered on 07/11/18at 22:15; Start 07/11/18 at 22:00; Stop 07/11/18 at 22:01; Status DC Neomycin/ Polymyxin/ Bacitracin (Triple Antibiotic Ointment) 1 pkt 1X ONCE TP Last administered on 07/11/18at 22:15; Start 07/11/18 at 22:00; Stop 07/11/18 at 22:01; Status DC Ondansetron HCl (Zofran) 4 mg PRN Q8HRS PRN IV NAUSEA/VOMITING Last administered on 07/12/18 05:56; Start 07/11/18 at 22:30; Stop 07/12/18 at 22:29 Fentanyl Citrate (Fentanyl 2ml Vial) 25 mcg PRN Q2HR PRN IV PAIN Last administered on 07/12/18 08:48; Start 07/11/18 at 22:30 Insulin Human Lispro (HumaLOG) 0-5 UNITS TIDWMEALS SQ Last administered on 07/12/18 08:55; Start 07/12/18 at 08:00 Dextrose (Dextrose 50%-Water Syringe) 12.5 gm PRN Q15MIN PRN IV SEE COMMENTS; Start 07/11/18 at 22:30 Amiodarone HCl (Cordarone) 200 mg DAILY PO Last administered on 07/12/18 08:43; Start 07/12/18 at 09:00 Amitriptyline HCl (Elavil) 25 mg QHS PO ; Start 07/12/18 at 21:00 Docusate Sodium (Colace) 100 mg DAILY PO Last administered on 07/12/18 08:43; Start 07/12/18 at 09:00 Furosemide (Lasix) 20 mg DAILY PO Last administered on 07/12/18 08:44; Start 07/12/18 at 09:00 Gabapentin (Neurontin) 300 mg TID PO Last administered on 07/12/18 08:47; Start 07/12/18 at 09:00 Acetaminophen/ Hydrocodone Bitart (Lortab 10/325) 1 tab PRN BID PRN PO PAIN Last administered on 07/11/18 23:59; Start 07/11/18 at 23:30 Lactobacillus Rhamnosus (Culturelle) 1 cap BID PO Last administered on 07/12 08:56; Start 07/12/18 at 09:00 Levetiracetam (Keppra) 500 mg BID PO Last administered on 07/12/18 08:47; Start 07/12/18 at 09:00 Lisinopril (Prinivil) 10 mg DAILY PO Last administered on 07/12/18 08:44; Start 07/12/18 at 09:00 Metoclopramide HCl (Reglan) 10 mg QIDACHS PO Last administered on 07/12/18 08:43; Start 07/12/18 at 07:30 Metoprolol Succinate (Toprol Xl) 100 mg BID PO Last administered on 07/12/18at 08:44; Start 07/12/18 at 09:00 Potassium Chloride (Klor-Con) 10 meq DAILYWBKFT PO ; Start 07/12/18 at 08:00 Atorvastatin Calcium (Lipitor) 80 mg HS PO ; Start 07/12/18 at 21:00 Metformin HCl (Glucophage) 1,000 mg DAILYWSUP PO ; Start 07/12/18 at 17:00 Metoclopramide HCl (Reglan) 10 mg 1X ONCE PO Last administered on 07/11/18at 23:59; Start 07/11/18 at 23:45; Stop 07/11/18 at 23:46; Status DC Metoprolol Succinate (Toprol Xl) 100 mg 1X ONCE PO Last administered on at 23:59; Start 07/11/18 at 23:45; Stop 07/11/18 at 23:46; Status DC Gabapentin (Neurontin) 300 mg 1X ONCE PO Last administered on 07/11/18at 23:59; Start 07/11/18 at 23:45; Stop 07/11/18 at 23:46; Status DC Amitriptyline HCl (Elavil) 25 mg 1X ONCE PO Last administered on 07/11/18at 23:59; Start 07/11/18 at 23:45; Stop 07/11/18 at 23:46; Status DC Levetiracetam (Keppra) 500 mg 1X ONCE PO Last administered on 07/11/18at 23:58; Start 07/11/18 at 23:45; Stop 07/11/18 at 23:46; Status DC Linagliptin (Tradjenta) 5 mg DAILYWSUP PO ; Start 07/12/18 at 17:00 Active Scripts Active Culturelle (Lactobacillus Rhamnosus Gg) 1 Each Cap.sprink 1 Cap PO BID 30 Days Cefdinir 300 Mg Capsule 300 Mg PO BID 10 Days Reported Keppra (Levetiracetam) 500 Mg Tablet 500 Mg PO BID Docusate Sodium 100 Mg Capsule 1 Cap PO DAILY Furosemide 20 Mg Tablet 20 Mg PO DAILY Hydrocodone-Apap 10-325 (Hydrocodone Bit/Acetaminophen) 1 Tab Tablet 1 Tab PO BID PRN Metoclopramide Hcl 10 Mg Tablet 10 Mg PO QIDACHS Janumet 50-1,000 Mg Tablet (Sitagliptin Phos/Metformin Hcl) 1 Each Tablet 2 Each PO DAILYWSUP Amitriptyline Hcl 25 Mg Tablet 1 Tab PO QHS Potassium Chloride 10 Meq Tablet.er 10 Meq PO DAILY Lisinopril 10 Mg Tablet 1 Tab PO DAILY Gabapentin (Gabapentin) 300 Mg Capsule 300 Mg PO TID Atorvastatin Calcium 80 Mg Tablet 1 Tab PO DAILY Metoprolol Succinate ( Xl ) (Metoprolol Succinate) 100 Mg Tab.er.24h 1 Tab PO BID Amiodarone Hcl 200 Mg Tablet 1 Tab PO DAILY Allergies Allergies: Coded Allergies: Penicillins (Verified Allergy, Intermediate, 06/25/18) onion (Verified Allergy, Intermediate, 06/25/18) ROS PSYCHOLOGICAL ROS: No: Hallucinations Eyes: No Loss of vision HEENT: No: Epistaxis Respiratory: No: Hemoptysis, Shortness of breath Cardiovascular: yes Chest Pain Gastrointestinal: No Vomiting, No Diarrhea Genitourinary: No Hematuria Neurological: No Seizures Skin: No Rash Physical Exam General: Alert, Oriented X3 HEENT: Atraumatic, PERRLA Lungs: Clear to auscultation Heart: Regular rate Abdomen: Soft, No tenderness Extremities: No edema Neuro: Normal speech Psych/Mental Status: Mood NL Vitals VITALS Vital Signs Date Time Temp Pulse Resp B/P (MAP) Pulse Ox O2 Delivery O2 Flow Rate FiO2 07/12/18 08:48 96 Room Air 3.0 07/12/18 08:44 72 129/80 07/12/18 07:00 97.5 16 97.5 Labs Labs Laboratory Tests Test 07/11/18 21:59 07/11/18 22:16 07/12/18 06:35 07/12/18 08:19 White Blood Count 12.8 x10^3/uL (4.0-11.0) 7.5 x10^3/uL (4.0-11.0) Red Blood Count 4.52 x10^6/uL (4.30-5.70) 3.69 x10^6/uL (4.30-5.70) Hemoglobin 13.3 g/dL (13.0-17.5) 11.4 g/dL (13.0-17.5) Hematocrit 40.6 % (39.0-53.0) 33.0 % (39.0-53.0) Mean Corpuscular Volume 90 fL (79-100) 89 fL (79-100) Mean Corpuscular Hemoglobin 29 pg (25-35) 31 pg (25-35) Mean Corpuscular Hemoglobin Concent 33 g/dL (31-37) 34 g/dL (31-37) Red Cell Distribution Width 14.4 % (11.5-14.5) 14.6 % (11.5-14.5) Platelet Count 268 x10^3/uL (140-400) 208 x10^3/uL (140-400) Neutrophils (%) (Auto) 89 % (31-73) 77 % (31-73) Lymphocytes (%) (Auto) 6 % (24-48) 15 % (24-48) Monocytes (%) (Auto) 4 % (0-9) 6 % (0-9) Eosinophils (%) (Auto) 1 % (0-3) 2 % (0-3) Basophils (%) (Auto) 1 % (0-3) 0 % (0-3) Neutrophils # (Auto) 11.4 x10^3uL (1.8-7.7) 5.8 x10^3uL (1.8-7.7) Lymphocytes # (Auto) 0.7 x10^3/uL (1.0-4.8) 1.1 x10^3/uL (1.0-4.8) Monocytes # (Auto) 0.5 x10^3/uL (0.0-1.1) 0.5 x10^3/uL (0.0-1.1) Eosinophils # (Auto) 0.1 x10^3/uL (0.0-0.7) 0.1 x10^3/uL (0.0-0.7) Basophils # (Auto) 0.1 x10^3/uL (0.0-0.2) 0.0 x10^3/uL (0.0-0.2) Segmented Neutrophils % 90 % (35-66) Band Neutrophils % 1 % (0-9) Lymphocytes % 5 % (24-48) Monocytes % 3 % (0-10) Basophils % 1 % (0-3) Platelet Estimate Adequate (ADEQUATE) Prothrombin Time 12.9 SEC (11.7-14.0) Prothromb Time International Ratio 1.0 (0.8-1.1) Sodium Level 138 mmol/L (136-145) 136 mmol/L (136-145) Potassium Level 4.9 mmol/L (3.5-5.1) 5.2 mmol/L (3.5-5.1) Chloride Level 99 mmol/L (98-107) 102 mmol/L (98-107) Carbon Dioxide Level 32 mmol/L (21-32) 27 mmol/L (21-32) Anion Gap 7 (6-14) 7 (6-14) Blood Urea Nitrogen 20 mg/dL (8-26) 28 mg/dL (8-26) Creatinine 1.0 mg/dL (0.7-1.3) 1.0 mg/dL (0.7-1.3) Estimated GFR (Cockcroft-Gault) 77.3 77.3 BUN/Creatinine Ratio 20 (6-20) Glucose Level 265 mg/dL (70-99) 237 mg/dL (70-99) Calcium Level 9.2 mg/dL (8.5-10.1) 8.1 mg/dL (8.5-10.1) Magnesium Level 1.3 mg/dL (1.8-2.4) Total Bilirubin 0.4 mg/dL (0.2-1.0) Aspartate Amino Transf (AST/SGOT) 39 U/L (15-37) Alanine Aminotransferase (ALT/SGPT) 41 U/L (16-63) Alkaline Phosphatase 171 U/L (46-116) Creatine Kinase 33 U/L (39-308) Creatine Kinase MB (Mass) 1.0 ng/mL (0.0-3.6) Creatine Kinase MB Relative Index % (0-4) Troponin I Quantitative < 0.017 ng/mL (0.000-0.055) 0.019 ng/mL (0.000-0.055) BM-Whs-S-Type Natriuretic Peptide 1565 pg/mL (0-124) Total Protein 7.7 g/dL (6.4-8.2) Albumin 3.4 g/dL (3.4-5.0) Albumin/Globulin Ratio 0.8 (1.0-1.7) Lipase 190 U/L (73-393) Ethyl Alcohol Level < 10 mg/dL (0-10) Urine Collection Type Unknown Urine Color Yellow Urine Clarity Clear Urine pH 6.0 Urine Specific Draper 1.015 Urine Protein Negative mg/dL (NEG-TRACE) Urine Glucose (UA) 500 mg/dL (NEG) Urine Ketones (Stick) Negative mg/dL (NEG) Urine Blood Negative (NEG) Urine Nitrite Negative (NEG) Urine Bilirubin Negative (NEG) Urine Urobilinogen Dipstick 1.0 mg/dL (0.2 mg/dL) Urine Leukocyte Esterase Negative (NEG) Urine RBC 1-2 /HPF (0-2) Urine WBC 0 /HPF (0-4) Urine Squamous Epithelial Cells Occ /LPF Urine Bacteria 0 /HPF (0-FEW) Urine Opiates Screen Pos (NEG) Urine Methadone Screen Neg (NEG) Urine Barbiturates Neg (NEG) Urine Phencyclidine Screen Neg (NEG) Urine Amphetamine/Methamphetamine Neg (NEG) Urine Benzodiazepines Screen Pos (NEG) Urine Cocaine Screen Neg (NEG) Urine Cannabinoids Screen Pos (NEG) Urine Ethyl Alcohol Neg (NEG) Triglycerides Level 75 mg/dL (0-150) Cholesterol Level 99 mg/dL (0-200) LDL Cholesterol, Calculated 41 mg/dL (0-100) VLDL Cholesterol, Calculated 15 mg/dL (0-40) Non-HDL Cholesterol Calculated 56 mg/dL (0-129) HDL Cholesterol 43 mg/dL (40-60) Cholesterol/HDL Ratio 2.3 Glucose (Fingerstick) 236 mg/dL (70-99) Laboratory Tests Test 07/11/18 21:59 07/11/18 22:16 07/12/18 06:35 07/12/18 08:19 White Blood Count 12.8 x10^3/uL (4.0-11.0) 7.5 x10^3/uL (4.0-11.0) Red Blood Count 4.52 x10^6/uL (4.30-5.70) 3.69 x10^6/uL (4.30-5.70) Hemoglobin 13.3 g/dL (13.0-17.5) 11.4 g/dL (13.0-17.5) Hematocrit 40.6 % (39.0-53.0) 33.0 % (39.0-53.0) Mean Corpuscular Volume 90 fL (79-100) 89 fL (79-100) Mean Corpuscular Hemoglobin 29 pg (25-35) 31 pg (25-35) Mean Corpuscular Hemoglobin Concent 33 g/dL (31-37) 34 g/dL (31-37) Red Cell Distribution Width 14.4 % (11.5-14.5) 14.6 % (11.5-14.5) Platelet Count 268 x10^3/uL (140-400) 208 x10^3/uL (140-400) Neutrophils (%) (Auto) 89 % (31-73) 77 % (31-73) Lymphocytes (%) (Auto) 6 % (24-48) 15 % (24-48) Monocytes (%) (Auto) 4 % (0-9) 6 % (0-9) Eosinophils (%) (Auto) 1 % (0-3) 2 % (0-3) Basophils (%) (Auto) 1 % (0-3) 0 % (0-3) Neutrophils # (Auto) 11.4 x10^3uL (1.8-7.7) 5.8 x10^3uL (1.8-7.7) Lymphocytes # (Auto) 0.7 x10^3/uL (1.0-4.8) 1.1 x10^3/uL (1.0-4.8) Monocytes # (Auto) 0.5 x10^3/uL (0.0-1.1) 0.5 x10^3/uL (0.0-1.1) Eosinophils # (Auto) 0.1 x10^3/uL (0.0-0.7) 0.1 x10^3/uL (0.0-0.7) Basophils # (Auto) 0.1 x10^3/uL (0.0-0.2) 0.0 x10^3/uL (0.0-0.2) Segmented Neutrophils % 90 % (35-66) Band Neutrophils % 1 % (0-9) Lymphocytes % 5 % (24-48) Monocytes % 3 % (0-10) Basophils % 1 % (0-3) Platelet Estimate Adequate (ADEQUATE) Prothrombin Time 12.9 SEC (11.7-14.0) Prothromb Time International Ratio 1.0 (0.8-1.1) Sodium Level 138 mmol/L (136-145) 136 mmol/L (136-145) Potassium Level 4.9 mmol/L (3.5-5.1) 5.2 mmol/L (3.5-5.1) Chloride Level 99 mmol/L (98-107) 102 mmol/L (98-107) Carbon Dioxide Level 32 mmol/L (21-32) 27 mmol/L (21-32) Anion Gap 7 (6-14) 7 (6-14) Blood Urea Nitrogen 20 mg/dL (8-26) 28 mg/dL (8-26) Creatinine 1.0 mg/dL (0.7-1.3) 1.0 mg/dL (0.7-1.3) Estimated GFR (Cockcroft-Gault) 77.3 77.3 BUN/Creatinine Ratio 20 (6-20) Glucose Level 265 mg/dL (70-99) 237 mg/dL (70-99) Calcium Level 9.2 mg/dL (8.5-10.1) 8.1 mg/dL (8.5-10.1) Magnesium Level 1.3 mg/dL (1.8-2.4) Total Bilirubin 0.4 mg/dL (0.2-1.0) Aspartate Amino Transf (AST/SGOT) 39 U/L (15-37) Alanine Aminotransferase (ALT/SGPT) 41 U/L (16-63) Alkaline Phosphatase 171 U/L (46-116) Creatine Kinase 33 U/L (39-308) Creatine Kinase MB (Mass) 1.0 ng/mL (0.0-3.6) Creatine Kinase MB Relative Index % (0-4) Troponin I Quantitative < 0.017 ng/mL (0.000-0.055) 0.019 ng/mL (0.000-0.055) AP-Pwc-M-Type Natriuretic Peptide 1565 pg/mL (0-124) Total Protein 7.7 g/dL (6.4-8.2) Albumin 3.4 g/dL (3.4-5.0) Albumin/Globulin Ratio 0.8 (1.0-1.7) Lipase 190 U/L (73-393) Ethyl Alcohol Level < 10 mg/dL (0-10) Urine Collection Type Unknown Urine Color Yellow Urine Clarity Clear Urine pH 6.0 Urine Specific Draper 1.015 Urine Protein Negative mg/dL (NEG-TRACE) Urine Glucose (UA) 500 mg/dL (NEG) Urine Ketones (Stick) Negative mg/dL (NEG) Urine Blood Negative (NEG) Urine Nitrite Negative (NEG) Urine Bilirubin Negative (NEG) Urine Urobilinogen Dipstick 1.0 mg/dL (0.2 mg/dL) Urine Leukocyte Esterase Negative (NEG) Urine RBC 1-2 /HPF (0-2) Urine WBC 0 /HPF (0-4) Urine Squamous Epithelial Cells Occ /LPF Urine Bacteria 0 /HPF (0-FEW) Urine Opiates Screen Pos (NEG) Urine Methadone Screen Neg (NEG) Urine Barbiturates Neg (NEG) Urine Phencyclidine Screen Neg (NEG) Urine Amphetamine/Methamphetamine Neg (NEG) Urine Benzodiazepines Screen Pos (NEG) Urine Cocaine Screen Neg (NEG) Urine Cannabinoids Screen Pos (NEG) Urine Ethyl Alcohol Neg (NEG) Triglycerides Level 75 mg/dL (0-150) Cholesterol Level 99 mg/dL (0-200) LDL Cholesterol, Calculated 41 mg/dL (0-100) VLDL Cholesterol, Calculated 15 mg/dL (0-40) Non-HDL Cholesterol Calculated 56 mg/dL (0-129) HDL Cholesterol 43 mg/dL (40-60) Cholesterol/HDL Ratio 2.3 Glucose (Fingerstick) 236 mg/dL (70-99) Assessment/Plan Assessment/Plan 1. Atypical Chest pain: Most probably musculoskeletal since this is reproducible to palpation. EKG without acute changes and cardiac enzymes negative. No further cardiac workup is indicated at this time. 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 CAD s/p CABG 2014. clinically stable. Continue current secondary prevention measures. 3. Chronic systolic CHF with ICM; Recent echo showed LV EF 35%, clinically well compensated. Continue current medical regimen. 4. Paroxysmal atrial flutter; maintaining SR with amiodarone. 5. DM2/HLP. Treat per IM. 6. H/o substance abuse: meth and marijuana. 7. AICD in situ: medtronic, recent interrogation showed normal function. 8. HTN: Controlled Thank you for your consultation. MILLY VILLEGAS MD July 12, 2018 09:04
--- NOTE | 2018-07-12 09:13 | PDOC1 ---
History and Physical Date of Admission Date of Admission DATE: 07/12/18 TIME: 09:13 Identification/Chief Complaint Chief Complaint SEEN IN ER THIS AM, 57 year old male with an extensive history of coronary artery disease presents with sharp, intermittent chest pain that began earlier today when he was sitting up from his recliner and felt something "pop" in his chest. He describes the pain as sharp and extending up into his left shoulder, going down his left arm, and up into his jaw. He states the pain is a 7 out of 10. He states the pain is worse when laying down. He denies taking an aspirin before coming to the ED Past Medical History Past Medical History Past Medical/Surgical History: PMH/PSH: Past Medical History: CAD, CVA, Diabetes-Type II, Hypertension, GA, Pneumonia, Seizure, Stroke, Other Additional Past Medical Histor: GA X 5, STROKE X 3 Past Surgical History: Appendectomy, Cholecystectomy, Coronary Bypass Surgery, Pacemaker, Tonsillectomy, Other Additional Past Surgical Histo: Multiple Cardiac Stents, ICD, CABGX4 Alcohol Use: None Drug Use: Marijuana Allergies: Allergies: Coded Allergies: Penicillins (Verified Allergy, Intermediate, 01/28/18) onion (Verified Allergy, Intermediate, 01/28/18) Family History: CAD Social History: Social Hisoty: He denies drinking smoking or drugs states he does not work currently but that 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 Cardiovascular: CAD Pulmonary: Bronchitis CENTRAL NERVOUS SYSTEM: CVA, Periperal neuropathy GI: Other Heme/Onc: No pertinent hx Hepatobiliary: No pertinent hx Musculoskeletal: Osteoarthritis Rheumatologic: No pertinent hx Infectious disease: No pertinent hx Renal/: No pertinent hx Past Surgical History Past Surgical History: Pacemaker, Cholecystectomy, CABG, Cystoscopy, Tonsillectomy Family History Family History: Coronary Artery Disease, Hypertension Social History Smoke: <1 pack per day ALCOHOL: rare Drugs: Marijuana Current Medications Current Medications Current Medications Aspirin (Yoli Aspirin) 325 mg 1X ONCE PO Last administered on 07/11/18at 22:14; Start 07/11/18 at 22:00; Stop 07/11/18 at 22:01; Status DC Sodium Chloride 1,000 ml @ 1,000 mls/hr 1X ONCE IV Last administered on 07/11/18at 22:14; Start 07/11/18 at 21:45; Stop 07/11/18 at 22:44; Status DC Ketorolac Tromethamine (Toradol 15mg Vial) 15 mg 1X ONCE IV Last administered on 07/11/18 22:15; Start 07/11/18 at 22:00; Stop 07/11/18 at 22:01; Status DC Neomycin/ Polymyxin/ Bacitracin (Triple Antibiotic Ointment) 1 pkt 1X ONCE TP Last administered on 07/11/18 22:15; Start 07/11/18 at 22:00; Stop 07/11/18 at 22:01; Status DC Ondansetron HCl (Zofran) 4 mg PRN Q8HRS PRN IV NAUSEA/VOMITING Last a dministered on 07/12/18 05:56; Start 07/11/18 at 22:30; Stop 07/12/18 at 22:29 Fentanyl Citrate (Fentanyl 2ml Vial) 25 mcg PRN Q2HR PRN IV PAIN Last administered on 07/12/18 08:48; Start 07/11/18 at 22:30 Insulin Human Lispro (HumaLOG) 0-5 UNITS TIDWMEALS SQ Last administered on 07/12/18 08:55; Start 07/12/18 at 08:00 Dextrose (Dextrose 50%-Water Syringe) 12.5 gm PRN Q15MIN PRN IV SEE COMMENTS; Start 07/11/18 at 22:30 Amiodarone HCl (Cordarone) 200 mg DAILY PO Last administered on 07/12/18 08:43; Start 07/12/18 at 09:00 Amitriptyline HCl (Elavil) 25 mg QHS PO ; Start 07/12/18 at 21:00 Docusate Sodium (Colace) 100 mg DAILY PO Last administered on 07/12/18 08:43; Start 07/12/18 at 09:00 Furosemide (Lasix) 20 mg DAILY PO Last administered on 07/12/18 08:44; Start 07/12/18 at 09:00 Gabapentin (Neurontin) 300 mg TID PO Last administered on 07/12/18 08:47; Start 07/12/18 at 09:00 Acetaminophen/ Hydrocodone Bitart (Lortab 10/325) 1 tab PRN BID PRN PO PAIN Last administered on 07/11/18 23:59; Start 07/11/18 at 23:30 Lactobacillus Rhamnosus (Culturelle) 1 cap BID PO Last administered on 07/12/18 08:56; Start 07/12/18 at 09:00 Levetiracetam (Keppra) 500 mg BID PO Last administered on 07/12/18 08:47; Start 07/12/18 at 09:00 Lisinopril (Prinivil) 10 mg DAILY PO Last administered on 07/12/18 08:44; Start 07/12/18 at 09:00 Metoclopramide HCl (Reglan) 10 mg QIDACHS PO Last administered on 07/12/18 08:43; Start 07/12/18 at 07:30 Metoprolol Succinate (Toprol Xl) 100 mg BID PO Last administered on 07/12/18 08:44; Start 07/12/18 at 09:00 Potassium Chloride (Klor-Con) 10 meq DAILYWBKFT PO ; Start 07/12/18 at 08:00 Atorvastatin Calcium (Lipitor) 80 mg HS PO ; Start 07/12/18 at 21:00 Metformin HCl (Glucophage) 1,000 mg DAILYWSUP PO ; Start 07/12/18 at 17:00 Metoclopramide HCl (Reglan) 10 mg 1X ONCE PO Last administered on 07/11/18at 23:59; Start 07/11/18 at 23:45; Stop 07/11/18 at 23:46; Status DC Metoprolol Succinate (Toprol Xl) 100 mg 1X ONCE PO Last administered on 07/11/18at 23:59; Start 07/11/18 at 23:45; Stop 07/11/18 at 23:46; Status DC Gabapentin (Neurontin) 300 mg 1X ONCE PO Last administered on 07/11/18at 23:59; Start 07/11/18 at 23:45; Stop 07/11/18 at 23:46; Status DC Amitriptyline HCl (Elavil) 25 mg 1X ONCE PO Last administered on 07/11/18at 23:59; Start 07/11/18 at 23:45; Stop 07/11/18 at 23:46; Status DC Levetiracetam (Keppra) 500 mg 1X ONCE PO Last administered on 07/11/18at 23:58; Start 07/11/18 at 23:45; Stop 07/11/18 at 23:46; Status DC Linagliptin (Tradjenta) 5 mg DAILYWSUP PO ; Start 07/12/18 at 17:00 Active Scripts Active Culturelle (Lactobacillus Rhamnosus Gg) 1 Each Cap.sprink 1 Cap PO BID 30 Days Cefdinir 300 Mg Capsule 300 Mg PO BID 10 Days Reported Keppra (Levetiracetam) 500 Mg Tablet 500 Mg PO BID Docusate Sodium 100 Mg Capsule 1 Cap PO DAILY Furosemide 20 Mg Tablet 20 Mg PO DAILY Hydrocodone-Apap 10-325 (Hydrocodone Bit/Acetaminophen) 1 Tab Tablet 1 Tab PO BID PRN Metoclopramide Hcl 10 Mg Tablet 10 Mg PO QIDACHS Janumet 50-1,000 Mg Tablet (Sitagliptin Phos/Metformin Hcl) 1 Each Tablet 2 Each PO DAILYWSUP Amitriptyline Hcl 25 Mg Tablet 1 Tab PO QHS Potassium Chloride 10 Meq Tablet.er 10 Meq PO DAILY Lisinopril 10 Mg Tablet 1 Tab PO DAILY Gabapentin (Gabapentin) 300 Mg Capsule 300 Mg PO TID Atorvastatin Calcium 80 Mg Tablet 1 Tab PO DAILY Metoprolol Succinate ( Xl ) (Metoprolol Succinate) 100 Mg Tab.er.24h 1 Tab PO BID Amiodarone Hcl 200 Mg Tablet 1 Tab PO DAILY Allergies Allergies: Coded Allergies: Penicillins (Verified Allergy, Intermediate, 06/25/18) onion (Verified Allergy, Intermediate, 06/25/18) ROS Review of System Review of Systems Review of Systems Constitutional: Denies fever or chills [] Eyes: Denies change in visual acuity, redness, or eye pain [] HENT: Denies nasal congestion or sore throat [] Respiratory: Denies cough or shortness of breath [] Cardiovascular: left-sided, sharp chest pain. GI: Denies abdominal pain, nausea, vomiting, bloody stools or diarrhea [] : Denies dysuria or hematuria [] Integument: Denies rash or skin lesions [] Neurologic: Denies headache, focal weakness or sensory changes [] 14 PT systems were reviewed and found to be within normal limits, except as documented . Current Medications REVIEWED General: YES: Fatigue PSYCHOLOGICAL ROS: YES: Anxiety, Irritablity Hematological and Lymphatic: No: Bleeding Problems, Blood Clots, Blood Transfusions, Brusing, Night Sweats, Pallor, Swollen Lymph Nodes, Other Cardiovascular: yes Chest Pain Musculoskeletal: Yes Joint Stiffness Skin: Yes Dry Skin Physical Exam Physical Exam Physical Exam Physical Exam Constitutional: Well developed, well nourished, no acute distress, non-toxic appearance. SLEEPY [] HENT: Normocephalic, atraumatic, bilateral external ears normal, oropharynx moist, no oral exudates, nose normal. [] Eyes: EOMI, conjunctiva normal, no discharge. [] Cardiovascular: Heart rate regular rhythm, no murmur [] Lungs & Thorax: Bilateral breath sounds clear to auscultation [] Abdomen: soft, no tenderness, no masses, no pulsatile masses. [] Skin: Warm, dry, no erythema, no rash. [] Extremities: No tenderness, no cyanosis, no clubbing, ROM intact, no edema. [] Neurologic: Alert and oriented X 3, normal motor function, normal sensory function, no focal deficits noted. [] Psychologic: Affect normal, judgement normal, mood normal. [] General: Oriented X3, Cooperative, mild distress HEENT: Atraumatic, Mucous membr. moist/pink Heart: no thrills Abdomen: Normal bowel sounds, Soft Rectal Exam: not examined Extremities: No cyanosis Neuro: Cranial nerves 3-12 NL Vitals Vitals Vital Signs Date Time Temp Pulse Resp B/P (MAP) Pulse Ox O2 Delivery O2 Flow Rate FiO2 07/12/18 08:48 96 Room Air 3.0 07/12/18 08:44 72 129/80 07/12/18 07:00 97.5 16 97.5 Labs Labs Laboratory Tests Test 07/11/18 21:59 07/11/18 22:16 07/12/18 06:35 07/12/18 08:19 White Blood Count 12.8 x10^3/uL (4.0-11.0) 7.5 x10^3/uL (4.0-11.0) Red Blood Count 4.52 x10^6/uL (4.30-5.70) 3.69 x10^6/uL (4.30-5.70) Hemoglobin 13.3 g/dL (13.0-17.5) 11.4 g/dL (13.0-17.5) Hematocrit 40.6 % (39.0-53.0) 33.0 % (39.0-53.0) Mean Corpuscular Volume 90 fL (79-100) 89 fL (79-100) Mean Corpuscular Hemoglobin 29 pg (25-35) 31 pg (25-35) Mean Corpuscular Hemoglobin Concent 33 g/dL (31-37) 34 g/dL (31-37) Red Cell Distribution Width 14.4 % (11.5-14.5) 14.6 % (11.5-14.5) Platelet Count 268 x10^3/uL (140-400) 208 x10^3/uL (140-400) Neutrophils (%) (Auto) 89 % (31-73) 77 % (31-73) Lymphocytes (%) (Auto) 6 % (24-48) 15 % (24-48) Monocytes (%) (Auto) 4 % (0-9) 6 % (0-9) Eosinophils (%) (Auto) 1 % (0-3) 2 % (0-3) Basophils (%) (Auto) 1 % (0-3) 0 % (0-3) Neutrophils # (Auto) 11.4 x10^3uL (1.8-7.7) 5.8 x10^3uL (1.8-7.7) Lymphocytes # (Auto) 0.7 x10^3/uL (1.0-4.8) 1.1 x10^3/uL (1.0-4.8) Monocytes # (Auto) 0.5 x10^3/uL (0.0-1.1) 0.5 x10^3/uL (0.0-1.1) Eosinophils # (Auto) 0.1 x10^3/uL (0.0-0.7) 0.1 x10^3/uL (0.0-0.7) Basophils # (Auto) 0.1 x10^3/uL (0.0-0.2) 0.0 x10^3/uL (0.0-0.2) Segmented Neutrophils % 90 % (35-66) Band Neutrophils % 1 % (0-9) Lymphocytes % 5 % (24-48) Monocytes % 3 % (0-10) Basophils % 1 % (0-3) Platelet Estimate Adequate (ADEQUATE) Prothrombin Time 12.9 SEC (11.7-14.0) Prothromb Time International Ratio 1.0 (0.8-1.1) Sodium Level 138 mmol/L (136-145) 136 mmol/L (136-145) Potassium Level 4.9 mmol/L (3.5-5.1) 5.2 mmol/L (3.5-5.1) Chloride Level 99 mmol/L (98-107) 102 mmol/L (98-107) Carbon Dioxide Level 32 mmol/L (21-32) 27 mmol/L (21-32) Anion Gap 7 (6-14) 7 (6-14) Blood Urea Nitrogen 20 mg/dL (8-26) 28 mg/dL (8-26) Creatinine 1.0 mg/dL (0.7-1.3) 1.0 mg/dL (0.7-1.3) Estimated GFR (Cockcroft-Gault) 77.3 77.3 BUN/Creatinine Ratio 20 (6-20) Glucose Level 265 mg/dL (70-99) 237 mg/dL (70-99) Calcium Level 9.2 mg/dL (8.5-10.1) 8.1 mg/dL (8.5-10.1) Magnesium Level 1.3 mg/dL (1.8-2.4) Total Bilirubin 0.4 mg/dL (0.2-1.0) Aspartate Amino Transf (AST/SGOT) 39 U/L (15-37) Alanine Aminotransferase (ALT/SGPT) 41 U/L (16-63) Alkaline Phosphatase 171 U/L (46-116) Creatine Kinase 33 U/L (39-308) Creatine Kinase MB (Mass) 1.0 ng/mL (0.0-3.6) Creatine Kinase MB Relative Index % (0-4) Troponin I Quantitative < 0.017 ng/mL (0.000-0.055) 0.019 ng/mL (0.000-0.055) JB-Syr-O-Type Natriuretic Peptide 1565 pg/mL (0-124) Total Protein 7.7 g/dL (6.4-8.2) Albumin 3.4 g/dL (3.4-5.0) Albumin/Globulin Ratio 0.8 (1.0-1.7) Lipase 190 U/L (73-393) Ethyl Alcohol Level < 10 mg/dL (0-10) Urine Collection Type Unknown Urine Color Yellow Urine Clarity Clear Urine pH 6.0 Urine Specific [place] 1.015 Urine Protein Negative mg/dL (NEG-TRACE) Urine Glucose (UA) 500 mg/dL (NEG) Urine Ketones (Stick) Negative mg/dL (NEG) Urine Blood Negative (NEG) Urine Nitrite Negative (NEG) Urine Bilirubin Negative (NEG) Urine Urobilinogen Dipstick 1.0 mg/dL (0.2 mg/dL) Urine Leukocyte Esterase Negative (NEG) Urine RBC 1-2 /HPF (0-2) Urine WBC 0 /HPF (0-4) Urine Squamous Epithelial Cells Occ /LPF Urine Bacteria 0 /HPF (0-FEW) Urine Opiates Screen Pos (NEG) Urine Methadone Screen Neg (NEG) Urine Barbiturates Neg (NEG) Urine Phencyclidine Screen Neg (NEG) Urine Amphetamine/Methamphetamine Neg (NEG) Urine Benzodiazepines Screen Pos (NEG) Urine Cocaine Screen Neg (NEG) Urine Cannabinoids Screen Pos (NEG) Urine Ethyl Alcohol Neg (NEG) Triglycerides Level 75 mg/dL (0-150) Cholesterol Level 99 mg/dL (0-200) LDL Cholesterol, Calculated 41 mg/dL (0-100) VLDL Cholesterol, Calculated 15 mg/dL (0-40) Non-HDL Cholesterol Calculated 56 mg/dL (0-129) HDL Cholesterol 43 mg/dL (40-60) Cholesterol/HDL Ratio 2.3 Glucose (Fingerstick) 236 mg/dL (70-99) Laboratory Tests Test 07/11/18 21:59 07/11/18 22:16 07/12/18 06:35 07/12/18 08:19 White Blood Count 12.8 x10^3/uL (4.0-11.0) 7.5 x10^3/uL (4.0-11.0) Red Blood Count 4.52 x10^6/uL (4.30-5.70) 3.69 x10^6/uL (4.30-5.70) Hemoglobin 13.3 g/dL (13.0-17.5) 11.4 g/dL (13.0-17.5) Hematocrit 40.6 % (39.0-53.0) 33.0 % (39.0-53.0) Mean Corpuscular Volume 90 fL (79-100) 89 fL (79-100) Mean Corpuscular Hemoglobin 29 pg (25-35) 31 pg (25-35) Mean Corpuscular Hemoglobin Concent 33 g/dL (31-37) 34 g/dL (31-37) Red Cell Distribution Width 14.4 % (11.5-14.5) 14.6 % (11.5-14.5) Platelet Count 268 x10^3/uL (140-400) 208 x10^3/uL (140-400) Neutrophils (%) (Auto) 89 % (31-73) 77 % (31-73) Lymphocytes (%) (Auto) 6 % (24-48) 15 % (24-48) Monocytes (%) (Auto) 4 % (0-9) 6 % (0-9) Eosinophils (%) (Auto) 1 % (0-3) 2 % (0-3) Basophils (%) (Auto) 1 % (0-3) 0 % (0-3) Neutrophils # (Auto) 11.4 x10^3uL (1.8-7.7) 5.8 x10^3uL (1.8-7.7) Lymphocytes # (Auto) 0.7 x10^3/uL (1.0-4.8) 1.1 x10^3/uL (1.0-4.8) Monocytes # (Auto) 0.5 x10^3/uL (0.0-1.1) 0.5 x10^3/uL (0.0-1.1) Eosinophils # (Auto) 0.1 x10^3/uL (0.0-0.7) 0.1 x10^3/uL (0.0-0.7) Basophils # (Auto) 0.1 x10^3/uL (0.0-0.2) 0.0 x10^3/uL (0.0-0.2) Segmented Neutrophils % 90 % (35-66) Band Neutrophils % 1 % (0-9) Lymphocytes % 5 % (24-48) Monocytes % 3 % (0-10) Basophils % 1 % (0-3) Platelet Estimate Adequate (ADEQUATE) Prothrombin Time 12.9 SEC (11.7-14.0) Prothromb Time International Ratio 1.0 (0.8-1.1) Sodium Level 138 mmol/L (136-145) 136 mmol/L (136-145) Potassium Level 4.9 mmol/L (3.5-5.1) 5.2 mmol/L (3.5-5.1) Chloride Level 99 mmol/L (98-107) 102 mmol/L (98-107) Carbon Dioxide Level 32 mmol/L (21-32) 27 mmol/L (21-32) Anion Gap 7 (6-14) 7 (6-14) Blood Urea Nitrogen 20 mg/dL (8-26) 28 mg/dL (8-26) Creatinine 1.0 mg/dL (0.7-1.3) 1.0 mg/dL (0.7-1.3) Estimated GFR (Cockcroft-Gault) 77.3 77.3 BUN/Creatinine Ratio 20 (6-20) Glucose Level 265 mg/dL (70-99) 237 mg/dL (70-99) Calcium Level 9.2 mg/dL (8.5-10.1) 8.1 mg/dL (8.5-10.1) Magnesium Level 1.3 mg/dL (1.8-2.4) Total Bilirubin 0.4 mg/dL (0.2-1.0) Aspartate Amino Transf (AST/SGOT) 39 U/L (15-37) Alanine Aminotransferase (ALT/SGPT) 41 U/L (16-63) Alkaline Phosphatase 171 U/L (46-116) Creatine Kinase 33 U/L (39-308) Creatine Kinase MB (Mass) 1.0 ng/mL (0.0-3.6) Creatine Kinase MB Relative Index % (0-4) Troponin I Quantitative < 0.017 ng/mL (0.000-0.055) 0.019 ng/mL (0.000-0.055) MQ-Jox-O-Type Natriuretic Peptide 1565 pg/mL (0-124) Total Protein 7.7 g/dL (6.4-8.2) Albumin 3.4 g/dL (3.4-5.0) Albumin/Globulin Ratio 0.8 (1.0-1.7) Lipase 190 U/L (73-393) Ethyl Alcohol Level < 10 mg/dL (0-10) Urine Collection Type Unknown Urine Color Yellow Urine Clarity Clear Urine pH 6.0 Urine Specific [place] 1.015 Urine Protein Negative mg/dL (NEG-TRACE) Urine Glucose (UA) 500 mg/dL (NEG) Urine Ketones (Stick) Negative mg/dL (NEG) Urine Blood Negative (NEG) Urine Nitrite Negative (NEG) Urine Bilirubin Negative (NEG) Urine Urobilinogen Dipstick 1.0 mg/dL (0.2 mg/dL) Urine Leukocyte Esterase Negative (NEG) Urine RBC 1-2 /HPF (0-2) Urine WBC 0 /HPF (0-4) Urine Squamous Epithelial Cells Occ /LPF Urine Bacteria 0 /HPF (0-FEW) Urine Opiates Screen Pos (NEG) Urine Methadone Screen Neg (NEG) Urine Barbiturates Neg (NEG) Urine Phencyclidine Screen Neg (NEG) Urine Amphetamine/Methamphetamine Neg (NEG) Urine Benzodiazepines Screen Pos (NEG) Urine Cocaine Screen Neg (NEG) Urine Cannabinoids Screen Pos (NEG) Urine Ethyl Alcohol Neg (NEG) Triglycerides Level 75 mg/dL (0-150) Cholesterol Level 99 mg/dL (0-200) LDL Cholesterol, Calculated 41 mg/dL (0-100) VLDL Cholesterol, Calculated 15 mg/dL (0-40) Non-HDL Cholesterol Calculated 56 mg/dL (0-129) HDL Cholesterol 43 mg/dL (40-60) Cholesterol/HDL Ratio 2.3 Glucose (Fingerstick) 236 mg/dL (70-99) Images Images AP chest. HISTORY: Chest pain AP view was taken of the chest. The patient had previous valve surgery. Pacemaker on the left is unchanged. There is mild vascular congestion. There is a probable small left effusion. There is mild pulmonary edema although pneumonia would be possible. IMPRESSION: 1. Congestive heart failure. Electronically signed by: Edgard Zamudio MD (07/12/2018 5:42 AM) [facility] DICTATED and SIGNED BY: EDGARD ZAMUDIO MD DATE: 07/12/18 0542 AP chest. HISTORY: Chest pain AP view was taken of the chest. The patient had previous valve surgery. Pacemaker on the left is unchanged. There is mild vascular congestion. There is a probable small left effusion. There is mild pulmonary edema although pneumonia would be possible. IMPRESSION: 1. Congestive heart failure. Electronically signed by: Edgard Zamudio MD (07/12/2018 5:42 AM) [facility] DICTATED and SIGNED BY: EDGARD ZAMUDIO MD DATE: 07/12/18 0542 VTE Prophylaxis Ordered VTE Prophylaxis Devices: No VTE Pharmacological Prophylaxi: Yes Assessment/Plan Assessment/Plan CHEST PAIN neg troponin i x 2 since admit METH ABUSE hx RECENT right middle lobe pneumonia HAD infiltrate posteriorly of the right middle lobe, slightly There is other likely fibrotic change of the bilateral hemithoraces. HX median sternotomy. There is coronary calcification. There is borderline enlarged pretracheal node as seen previously. 50 pound weight loss in 6 months, CAD s/p CABG 2014. clinically stable. Chronic systolic CHF with ICM; Recent EF 35%, DEcompensated Paroxysmal atrial flutter; hx DM2/HLP H/o substance abuse: meth in the past and marijuana. Potential opioid seeking. AICD in situ: gridCommtronic. Interrogated and no abnormalities reported. 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
[2018-07-12 11:00] VITALS: BP 125/73
--- NOTE | 2018-07-12 11:14 | EKG ---
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
[2018-07-12] MEDS: ALPRAZolam 1 MG TABLET PO SCH ×2 (14:01→21:52)
[2018-07-12 15:00] VITALS: BP 139/86
[2018-07-12] MEDS ORDERED: MAGNESIUM SULFATE 2GM 50 ML IV ONE (16:45)
[2018-07-12] MEDS: metFORMIN 500 MG TABLET PO SCH (17:06)
[2018-07-12] MEDS: LINAGLIPTIN 5 MG TABLET PO SCH (17:06)
[2018-07-12] MEDS: HYDROcodone/APAP 10/325 1 TAB TABLET PO PRN (17:06)
[2018-07-12 19:05] VITALS: BP 159/92
[2018-07-12] MEDS ORDERED: AMITRIPTYLINE HCL 25 MG TABLET. PO SCH (21:00)
[2018-07-12] MEDS ORDERED: ATORVASTATIN CALCIUM 40 MG TABLET. PO SCH (21:00)
[2018-07-12 23:31] VITALS: BP 142/81
[2018-07-13] MEDS: HYDROcodone/APAP 10/325 1 TAB TABLET PO PRN (01:47)
[2018-07-13 03:34] VITALS: BP 123/69
[2018-07-13 06:08] LABS: ALBUMIN 2.8 g/dL (3.4-5.0); CREATININE 0.8 mg/dL (0.7-1.3); PHOSPHORUS 4.3 mg/dL (2.6-4.7); POTASSIUM 4.8 mmol/L (3.5-5.1)
[2018-07-13 06:09] LABS: BASO % 1 % (0-3); EOS # 0.2 x10^3/uL (0.0-0.7); EOS % 2 % (0-3); HEMATOCRIT 37.1 % (39.0-53.0); HEMOGLOBIN 12.2 g/dL (13.0-17.5); LYMPH % 11 % (24-48); MEAN CORPUSCULAR HEMOGLOBIN 29 pg (25-35); MEAN CORPUSCULAR HGB CONC 33 g/dL (31-37); MEAN CORPUSCULAR VOLUME 89 fL (79-100); MONO # 0.5 x10^3/uL (0.0-1.1); MONO % 6 % (0-9); NEUT # 7.3 x10^3uL (1.8-7.7); NEUT % 81 % (31-73); PLATELET COUNT 257 x10^3/uL (140-400); RED BLOOD COUNT 4.18 x10^6/uL (4.30-5.70); WHITE BLOOD COUNT 9.1 x10^3/uL (4.0-11.0)
[2018-07-13 07:00] VITALS: BP 147/84
[2018-07-13] MEDS: INSULIN LISPRO 300 UNITS/3 ML INSULN.PEN. SQ SCH ×3 (08:00→17:00)
[2018-07-13] MEDS ORDERED: HYDROcodone/APAP 10/325 1 TAB TABLET PO ONE (08:00)
[2018-07-13] MEDS: LACTOBACILLUS RHAMNOSUS GG 1 CAPSULE. PO SCH (08:14)
[2018-07-13] MEDS: POTASSIUM CHLORIDE 10 MEQ TABLET.ER. PO SCH (08:14)
[2018-07-13] MEDS: METOCLOPRAMIDE 10 MG TABLET. PO SCH ×4 (08:14→17:07)
[2018-07-13] MEDS: GABAPENTIN 300 MG CAPSULE. PO SCH ×3 (08:14→17:07)
[2018-07-13] MEDS: ALPRAZolam 1 MG TABLET PO SCH ×3 (08:14→17:07)
[2018-07-13] MEDS: METOPROLOL SUCC 24HR ER 100 MG TAB.ER.24H. PO SCH (08:15)
[2018-07-13] MEDS: LISINOPRIL 10 MG TABLET PO SCH (08:15)
[2018-07-13] MEDS: AMIODARONE HCL 200 MG TABLET. PO SCH (08:16)
[2018-07-13] MEDS: levETIRAcetam 500 MG TABLET PO SCH (08:16)
[2018-07-13] MEDS: FUROSEMIDE 20 MG TABLET PO SCH (08:16)
[2018-07-13] MEDS: DOCUSATE SODIUM 100 MG CAPSULE. PO SCH (08:16)
--- NOTE | 2018-07-13 09:53 | PDOC ---
PROGRESS NOTES History of Present Illness History of Present Illness VTE Prophylaxis Ordered VTE Prophylaxis Devices: No VTE Pharmacological Prophylaxi: Yes DISCHARGE DX Assessment/Plan CHEST PAIN neg troponin i x 2 since admit, MUSCULOSKELETAL METH ABUSE hx RECENT right middle lobe pneumonia HAD infiltrate posteriorly of the right middle lobe, slightly There is other likely fibrotic change of the HEMITHORACIES HX median sternotomy. There is coronary calcification. There is borderline enlarged pretracheal node as seen previously. 50 pound weight loss in 6 months, CAD s/p CABG 2014. clinically stable. Chronic systolic CHF with ICM; Recent EF 35%, DEcompensated Paroxysmal atrial flutter; hx DM2/HLP H/o substance abuse: meth in the past and marijuana. Potential opioid seeking. AICD in situ: medtronic. Interrogated and no abnormalities reported. 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 Chronic systolic CHF with ICM; Recent echo showed LV EF 35%, clinically well compensated. Continue current medical regimen. Paroxysmal atrial flutter; maintaining SR with amiodarone. DM2/HLP. H/o substance abuse: meth and marijuana. AICD in situ: medtronic, recent interrogation showed normal function. 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, high risk of complications with noncompliance PLAN CVC BED SERIAL ENZYMES NEG Cardiology consult OK WITH D/C SEE CARDIOLOGY NEXT WEEK DR [facility] home meds needs substance abuse treatment program 37 min pt exam, chart review,D/C PLANNING > 50% of time spent with exam, chart review, pt care coordination Vitals Vitals Vital Signs Date Time Temp Pulse Resp B/P (MAP) Pulse Ox O2 Delivery O2 Flow Rate FiO2 07/13/18 08:17 18 Room Air 07/13/18 08:16 71 147/84 07/13/18 07:00 98.0 93 98.0 07/12/18 17:06 3.0 Physical Exam General: Alert, Oriented X3, Cooperative Heart: Regular rate Lungs: Clear, Other Abdomen: Normal bowel sounds, Soft, No tenderness Extremities: No cyanosis, No edema Skin: No significant lesion Labs LABS Laboratory Tests Test 07/12/18 12:08 5/19/19 16:52 07/12/18 21:04 07/13/18 05:15 Glucose (Fingerstick) 165 mg/dL (70-99) 219 mg/dL (70-99) 164 mg/dL (70-99) White Blood Count 9.1 x10^3/uL (4.0-11.0) Red Blood Count 4.18 x10^6/uL (4.30-5.70) Hemoglobin 12.2 g/dL (13.0-17.5) Hematocrit 37.1 % (39.0-53.0) Mean Corpuscular Volume 89 fL (79-100) Mean Corpuscular Hemoglobin 29 pg (25-35) Mean Corpuscular Hemoglobin Concent 33 g/dL (31-37) Red Cell Distribution Width 15.0 % (11.5-14.5) Platelet Count 257 x10^3/uL (140-400) Neutrophils (%) (Auto) 81 % (31-73) Lymphocytes (%) (Auto) 11 % (24-48) Monocytes (%) (Auto) 6 % (0-9) Eosinophils (%) (Auto) 2 % (0-3) Basophils (%) (Auto) 1 % (0-3) Neutrophils # (Auto) 7.3 x10^3uL (1.8-7.7) Lymphocytes # (Auto) 1.0 x10^3/uL (1.0-4.8) Monocytes # (Auto) 0.5 x10^3/uL (0.0-1.1) Eosinophils # (Auto) 0.2 x10^3/uL (0.0-0.7) Basophils # (Auto) 0.0 x10^3/uL (0.0-0.2) Sodium Level 139 mmol/L (136-145) Potassium Level 4.8 mmol/L (3.5-5.1) Chloride Level 103 mmol/L (98-107) Carbon Dioxide Level 28 mmol/L (21-32) Anion Gap 8 (6-14) Blood Urea Nitrogen 22 mg/dL (8-26) Creatinine 0.8 mg/dL (0.7-1.3) Estimated GFR (Cockcroft-Gault) 100.0 Glucose Level 147 mg/dL (70-99) Calcium Level 9.0 mg/dL (8.5-10.1) Phosphorus Level 4.3 mg/dL (2.6-4.7) Albumin 2.8 g/dL (3.4-5.0) Test 07/13/18 08:00 Glucose (Fingerstick) 137 mg/dL (70-99) Comment Review of Relevant I have reviewed the following items otis (where applicable) has been applied. Labs Laboratory Tests Test 07/11/18 21:59 07/11/18 22:16 07/12/18 06:35 07/12/18 08:19 White Blood Count 12.8 x10^3/uL (4.0-11.0) 7.5 x10^3/uL (4.0-11.0) Red Blood Count 4.52 x10^6/uL (4.30-5.70) 3.69 x10^6/uL (4.30-5.70) Hemoglobin 13.3 g/dL (13.0-17.5) 11.4 g/dL (13.0-17.5) Hematocrit 40.6 % (39.0-53.0) 33.0 % (39.0-53.0) Mean Corpuscular Volume 90 fL (79-100) 89 fL (79-100) Mean Corpuscular Hemoglobin 29 pg (25-35) 31 pg (25-35) Mean Corpuscular Hemoglobin Concent 33 g/dL (31-37) 34 g/dL (31-37) Red Cell Distribution Width 14.4 % (11.5-14.5) 14.6 % (11.5-14.5) Platelet Count 268 x10^3/uL (140-400) 208 x10^3/uL (140-400) Neutrophils (%) (Auto) 89 % (31-73) 77 % (31-73) Lymphocytes (%) (Auto) 6 % (24-48) 15 % (24-48) Monocytes (%) (Auto) 4 % (0-9) 6 % (0-9) Eosinophils (%) (Auto) 1 % (0-3) 2 % (0-3) Basophils (%) (Auto) 1 % (0-3) 0 % (0-3) Neutrophils # (Auto) 11.4 x10^3uL (1.8-7.7) 5.8 x10^3uL (1.8-7.7) Lymphocytes # (Auto) 0.7 x10^3/uL (1.0-4.8) 1.1 x10^3/uL (1.0-4.8) Monocytes # (Auto) 0.5 x10^3/uL (0.0-1.1) 0.5 x10^3/uL (0.0-1.1) Eosinophils # (Auto) 0.1 x10^3/uL (0.0-0.7) 0.1 x10^3/uL (0.0-0.7) Basophils # (Auto) 0.1 x10^3/uL (0.0-0.2) 0.0 x10^3/uL (0.0-0.2) Segmented Neutrophils % 90 % (35-66) Band Neutrophils % 1 % (0-9) Lymphocytes % 5 % (24-48) Monocytes % 3 % (0-10) Basophils % 1 % (0-3) Platelet Estimate Adequate (ADEQUATE) Prothrombin Time 12.9 SEC (11.7-14.0) Prothromb Time International Ratio 1.0 (0.8-1.1) Sodium Level 138 mmol/L (136-145) 136 mmol/L (136-145) Potassium Level 4.9 mmol/L (3.5-5.1) 5.2 mmol/L (3.5-5.1) Chloride Level 99 mmol/L (98-107) 102 mmol/L (98-107) Carbon Dioxide Level 32 mmol/L (21-32) 27 mmol/L (21-32) Anion Gap 7 (6-14) 7 (6-14) Blood Urea Nitrogen 20 mg/dL (8-26) 28 mg/dL (8-26) Creatinine 1.0 mg/dL (0.7-1.3) 1.0 mg/dL (0.7-1.3) Estimated GFR (Cockcroft-Gault) 77.3 77.3 BUN/Creatinine Ratio 20 (6-20) Glucose Level 265 mg/dL (70-99) 237 mg/dL (70-99) Calcium Level 9.2 mg/dL (8.5-10.1) 8.1 mg/dL (8.5-10.1) Magnesium Level 1.3 mg/dL (1.8-2.4) Total Bilirubin 0.4 mg/dL (0.2-1.0) Aspartate Amino Transf (AST/SGOT) 39 U/L (15-37) Alanine Aminotransferase (ALT/SGPT) 41 U/L (16-63) Alkaline Phosphatase 171 U/L (46-116) Creatine Kinase 33 U/L (39-308) Creatine Kinase MB (Mass) 1.0 ng/mL (0.0-3.6) Creatine Kinase MB Relative Index % (0-4) Troponin I Quantitative < 0.017 ng/mL (0.000-0.055) 0.019 ng/mL (0.000-0.055) FP-Gcd-V-Type Natriuretic Peptide 1565 pg/mL (0-124) Total Protein 7.7 g/dL (6.4-8.2) Albumin 3.4 g/dL (3.4-5.0) Albumin/Globulin Ratio 0.8 (1.0-1.7) Lipase 190 U/L (73-393) Ethyl Alcohol Level < 10 mg/dL (0-10) Urine Collection Type Unknown Urine Color Yellow Urine Clarity Clear Urine pH 6.0 Urine Specific [place] 1.015 Urine Protein Negative mg/dL (NEG-TRACE) Urine Glucose (UA) 500 mg/dL (NEG) Urine Ketones (Stick) Negative mg/dL (NEG) Urine Blood Negative (NEG) Urine Nitrite Negative (NEG) Urine Bilirubin Negative (NEG) Urine Urobilinogen Dipstick 1.0 mg/dL (0.2 mg/dL) Urine Leukocyte Esterase Negative (NEG) Urine RBC 1-2 /HPF (0-2) Urine WBC 0 /HPF (0-4) Urine Squamous Epithelial Cells Occ /LPF Urine Bacteria 0 /HPF (0-FEW) Urine Opiates Screen Pos (NEG) Urine Methadone Screen Neg (NEG) Urine Barbiturates Neg (NEG) Urine Phencyclidine Screen Neg (NEG) Urine Amphetamine/Methamphetamine Neg (NEG) Urine Benzodiazepines Screen Pos (NEG) Urine Cocaine Screen Neg (NEG) Urine Cannabinoids Screen Pos (NEG) Urine Ethyl Alcohol Neg (NEG) Triglycerides Level 75 mg/dL (0-150) Cholesterol Level 99 mg/dL (0-200) LDL Cholesterol, Calculated 41 mg/dL (0-100) VLDL Cholesterol, Calculated 15 mg/dL (0-40) Non-HDL Cholesterol Calculated 56 mg/dL (0-129) HDL Cholesterol 43 mg/dL (40-60) Cholesterol/HDL Ratio 2.3 Glucose (Fingerstick) 236 mg/dL (70-99) Test 07/12/18 12:08 07/12/18 16:52 07/12/18 21:04 07/13/18 05:15 Glucose (Fingerstick) 165 mg/dL (70-99) 219 mg/dL (70-99) 164 mg/dL (70-99) White Blood Count 9.1 x10^3/uL (4.0-11.0) Red Blood Count 4.18 x10^6/uL (4.30-5.70) Hemoglobin 12.2 g/dL (13.0-17.5) Hematocrit 37.1 % (39.0-53.0) Mean Corpuscular Volume 89 fL (79-100) Mean Corpuscular Hemoglobin 29 pg (25-35) Mean Corpuscular Hemoglobin Concent 33 g/dL (31-37) Red Cell Distribution Width 15.0 % (11.5-14.5) Platelet Count 257 x10^3/uL (140-400) Neutrophils (%) (Auto) 81 % (31-73) Lymphocytes (%) (Auto) 11 % (24-48) Monocytes (%) (Auto) 6 % (0-9) Eosinophils (%) (Auto) 2 % (0-3) Basophils (%) (Auto) 1 % (0-3) Neutrophils # (Auto) 7.3 x10^3uL (1.8-7.7) Lymphocytes # (Auto) 1.0 x10^3/uL (1.0-4.8) Monocytes # (Auto) 0.5 x10^3/uL (0.0-1.1) Eosinophils # (Auto) 0.2 x10^3/uL (0.0-0.7) Basophils # (Auto) 0.0 x10^3/uL (0.0-0.2) Sodium Level 139 mmol/L (136-145) Potassium Level 4.8 mmol/L (3.5-5.1) Chloride Level 103 mmol/L (98-107) Carbon Dioxide Level 28 mmol/L (21-32) Anion Gap 8 (6-14) Blood Urea Nitrogen 22 mg/dL (8-26) Creatinine 0.8 mg/dL (0.7-1.3) Estimated GFR (Cockcroft-Gault) 100.0 Glucose Level 147 mg/dL (70-99) Calcium Level 9.0 mg/dL (8.5-10.1) Phosphorus Level 4.3 mg/dL (2.6-4.7) Albumin 2.8 g/dL (3.4-5.0) Test 07/13/18 08:00 Glucose (Fingerstick) 137 mg/dL (70-99) Laboratory Tests Test 07/12/18 12:08 07/12/18 16:52 07/12/18 21:04 07/13/18 05:15 Glucose (Fingerstick) 165 mg/dL (70-99) 219 mg/dL (70-99) 164 mg/dL (70-99) White Blood Count 9.1 x10^3/uL (4.0-11.0) Red Blood Count 4.18 x10^6/uL (4.30-5.70) Hemoglobin 12.2 g/dL (13.0-17.5) Hematocrit 37.1 % (39.0-53.0) Mean Corpuscular Volume 89 fL (79-100) Mean Corpuscular Hemoglobin 29 pg (25-35) Mean Corpuscular Hemoglobin Concent 33 g/dL (31-37) Red Cell Distribution Width 15.0 % (11.5-14.5) Platelet Count 257 x10^3/uL (140-400) Neutrophils (%) (Auto) 81 % (31-73) Lymphocytes (%) (Auto) 11 % (24-48) Monocytes (%) (Auto) 6 % (0-9) Eosinophils (%) (Auto) 2 % (0-3) Basophils (%) (Auto) 1 % (0-3) Neutrophils # (Auto) 7.3 x10^3uL (1.8-7.7) Lymphocytes # (Auto) 1.0 x10^3/uL (1.0-4.8) Monocytes # (Auto) 0.5 x10^3/uL (0.0-1.1) Eosinophils # (Auto) 0.2 x10^3/uL (0.0-0.7) Basophils # (Auto) 0.0 x10^3/uL (0.0-0.2) Sodium Level 139 mmol/L (136-145) Potassium Level 4.8 mmol/L (3.5-5.1) Chloride Level 103 mmol/L (98-107) Carbon Dioxide Level 28 mmol/L (21-32) Anion Gap 8 (6-14) Blood Urea Nitrogen 22 mg/dL (8-26) Creatinine 0.8 mg/dL (0.7-1.3) Estimated GFR (Cockcroft-Gault) 100.0 Glucose Level 147 mg/dL (70-99) Calcium Level 9.0 mg/dL (8.5-10.1) Phosphorus Level 4.3 mg/dL (2.6-4.7) Albumin 2.8 g/dL (3.4-5.0) Test 07/13/18 08:00 Glucose (Fingerstick) 137 mg/dL (70-99) Medications Current Medications Aspirin ([place] Aspirin) 325 mg 1X ONCE PO Last administered on 07/11/18at 22:14; Start 07/11/18 at 22:00; Stop 07/11/18 at 22:01; Status DC Sodium Chloride 1,000 ml @ 1,000 mls/hr 1X ONCE IV Last administered on 07/11/18at 22:14; Start 07/11/18 at 21:45; Stop 07/11/18 at 22:44; Status DC Ketorolac Tromethamine (Toradol 15mg Vial) 15 mg 1X ONCE IV Last administered on 07/11/18at 22:15; Start 07/11/18 at 22:00; Stop 07/11/18 at 22:01; Status DC Neomycin/ Polymyxin/ Bacitracin (Triple Antibiotic Ointment) 1 pkt 1X ONCE TP Last administered on 07/11/18at 22:15; Start 07/11/18 at 22:00; Stop 07/11/18 at 22:01; Status DC Ondansetron HCl (Zofran) 4 mg PRN Q8HRS PRN IV NAUSEA/VOMITING Last administered on 07/12/18at 05:56; Start 07/11/18 at 22:30; Stop 07/12/18 at 22:29; Status DC Fentanyl Citrate (Fentanyl 2ml Vial) 25 mcg PRN Q2HR PRN IV PAIN Last administered on 07/12/18 12:54; Start 07/11/18 at 22:30 Insulin Human Lispro (HumaLOG) 0-5 UNITS TIDWMEALS SQ Last administered on 07/12/18 17:18; Start 07/12/18 at 08:00 Dextrose (Dextrose 50%-Water Syringe) 12.5 gm PRN Q15MIN PRN IV SEE COMMENTS; Start 07/11/18 at 22:30 Amiodarone HCl (Cordarone) 200 mg DAILY PO Last administered on 07/13/18 08:16; Start 07/12/18 at 09:00 Amitriptyline HCl (Elavil) 25 mg QHS PO Last administered on 07/12/18 21:52; Start 07/12/18 at 21:00 Docusate Sodium (Colace) 100 mg DAILY PO Last administered on 07/13/18 08:16; Start 07/12/18 at 09:00 Furosemide (Lasix) 20 mg DAILY PO Last administered on 07/13/18 08:16; Start 07/12/18 at 09:00 Gabapentin (Neurontin) 300 mg TID PO Last administered on 07/13/18 08:14; Start 07/12/18 at 09:00 Acetaminophen/ Hydrocodone Bitart (Lortab 10/325) 1 tab PRN BID PRN PO PAIN Last administered on 07/13/18 01:47; Start 07/11/18 at 23:30 Lactobacillus Rhamnosus (Culturelle) 1 cap BID PO Last administered on 07/13/18 08:14; Start 07/12/18 at 09:00 Levetiracetam (Keppra) 500 mg BID PO Last administered on 07/13/18 08:16; Start 07/12/18 at 09:00 Lisinopril (Prinivil) 10 mg DAILY PO Last administered on 07/13/18 08:15; Start 07/12/18 at 09:00 Metoclopramide HCl (Reglan) 10 mg QIDACHS PO Last administered on 07/13/18 08:14; Start 07/12/18 at 07:30 Metoprolol Succinate (Toprol Xl) 100 mg BID PO Last administered on 07/13/18 08:15; Start 07/12/18 at 09:00 Potassium Chloride (Klor-Con) 10 meq DAILYWBKFT PO Last administered on 07/13/18at 08:14; Start 07/12/18 at 08:00 Atorvastatin Calcium (Lipitor) 80 mg HS PO Last administered on 07/12/18 21:53; Start 07/12/18 at 21:00 Metformin HCl (Glucophage) 1,000 mg DAILYWSUP PO Last administered on 07/12/18 17:06; Start 07/12/18 at 17:00 Metoclopramide HCl (Reglan) 10 mg 1X ONCE PO Last administered on 07/11/18 23:59; Start 07/11/18 at 23:45; Stop 07/11/18 at 23:46; Status DC Metoprolol Succinate (Toprol Xl) 100 mg 1X ONCE PO Last administered on 07/11/18at 23:59; Start 07/11/18 at 23:45; Stop 07/11/18 at 23:46; Status DC Gabapentin (Neurontin) 300 mg 1X ONCE PO Last administered on 07/11/18at 23:59; Start 07/11/18 at 23:45; Stop 07/11/18 at 23:46; Status DC Amitriptyline HCl (Elavil) 25 mg 1X ONCE PO Last administered on 07/11/18at 23:59; Start 07/11/18 at 23:45; Stop 07/11/18 at 23:46; Status DC Levetiracetam (Keppra) 500 mg 1X ONCE PO Last administered on 07/11/18at 23:58; Start 07/11/18 at 23:45; Stop 07/11/18 at 23:46; Status DC Linagliptin (Tradjenta) 5 mg DAILYWSUP PO Last administered on 07/12/18 17:06; Start 07/12/18 at 17:00 Alprazolam (Xanax) 1 mg TID PO Last administered on 07/13/18at 08:14; Start 07/12/18 at 14:00 Magnesium Sulfate 50 ml @ 25 mls/hr 1X ONCE IV Last administered on 5/19/19at 17:07; Start 07/12/18 at 16:45; Stop 07/12/18 at 18:44; Status DC Acetaminophen/ Hydrocodone Bitart (Lortab 10/325) 1 tab 1X ONCE PO Last administered on 07/13/18at 08:17; Start 07/13/18 at 08:00; Stop 07/13/18 at 08:01; Status DC Active Scripts Active Culturelle (Lactobacillus Rhamnosus Gg) 1 Each Cap.sprink 1 Cap PO BID 30 Days Cefdinir 300 Mg Capsule 300 Mg PO BID 10 Days Reported Keppra (Levetiracetam) 500 Mg Tablet 500 Mg PO BID Docusate Sodium 100 Mg Capsule 1 Cap PO DAILY Furosemide 20 Mg Tablet 20 Mg PO DAILY Hydrocodone-Apap 10-325 (Hydrocodone Bit/Acetaminophen) 1 Tab Tablet 1 Tab PO BID PRN Metoclopramide Hcl 10 Mg Tablet 10 Mg PO QIDACHS Janumet 50-1,000 Mg Tablet (Sitagliptin Phos/Metformin Hcl) 1 Each Tablet 2 Each PO DAILYWSUP Amitriptyline Hcl 25 Mg Tablet 1 Tab PO QHS Potassium Chloride 10 Meq Tablet.er 10 Meq PO DAILY Lisinopril 10 Mg Tablet 1 Tab PO DAILY Gabapentin (Gabapentin) 300 Mg Capsule 300 Mg PO TID Atorvastatin Calcium 80 Mg Tablet 1 Tab PO DAILY Metoprolol Succinate ( Xl ) (Metoprolol Succinate) 100 Mg Tab.er.24h 1 Tab PO BID Amiodarone Hcl 200 Mg Tablet 1 Tab PO DAILY Vitals/I & O Vital Sign - Last 24 Hours 07/12/18 07/12/18 07/12/18 07/12/18 10:35 11:00 12:54 14:03 Temp 96.8 96.8 Pulse 66 Resp 13 20 13 B/P (MAP) 125/73 (90) Pulse Ox 93 93 93 O2 Delivery Room Air Room Air Room Air O2 Flow Rate 3.0 3.0 07/12/18 07/12/18 07/12/18 07/12/18 15:00 17:06 18:13 19:05 Temp 97.7 98.6 97.7 98.6 Pulse 68 66 Resp 20 13 17 B/P (MAP) 139/86 (103) 159/92 (114) Pulse Ox 95 93 93 95 O2 Delivery Room Air Room Air Room Air Room Air O2 Flow Rate 3.0 07/12/18 07/12/18 07/12/18 07/13/18 20:00 21:53 23:31 01:47 Temp 98.4 98.4 Pulse 66 69 Resp 17 20 B/P (MAP) 159/92 142/81 (101) Pulse Ox 96 O2 Delivery Room Air Room Air Room Air 07/13/18 07/13/18 07/13/18 07/13/18 03:34 07:00 08:15 08:15 Temp 98.7 98.0 98.7 98.0 Pulse 70 69 70 75 Resp 18 18 B/P (MAP) 123/69 (87) 147/84 (105) 147/84 147/84 Pulse Ox 96 93 O2 Delivery Room Air Room Air 07/13/18 07/13/18 08:16 08:17 Pulse 71 Resp 18 B/P (MAP) 147/84 O2 Delivery Room Air Intake and Output 07/12/18 07/12/18 07/13/18 15:00 23:00 07:00 Intake Total 100 ml Output Total 420 ml 1050 ml Balance -420 ml -950 ml SARAH RUDD MD July 13, 2018 09:53
[2018-07-13 11:00] VITALS: BP 151/94
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
--- NOTE | 2018-07-13 12:34 | NUR ---
SS following for discharge planning. SS reviewed pt chart. Pt is from home and is currently on room air. No discharge needs noted at this time. SS will continue to follow for discharge planning.
[2018-07-13] MEDS: fentaNYL PF VIAL 100 MCG/2 ML VIAL IV PRN (13:05)
[2018-07-13 15:00] VITALS: BP 157/103
--- NOTE | 2018-07-13 16:19 | PDOC3 ---
Discharge Summary Date of Admission: July 12, 2018 Date of Discharge: July 13, 2018 Follow-Up: 3-5 days Admitting Diagnosis comment: VTE Prophylaxis Ordered VTE Prophylaxis Devices: No VTE Pharmacological Prophylaxi: Yes DISCHARGE DX Assessment/Plan CHEST PAIN neg troponin i x 2 since admit, MUSCULOSKELETAL METH ABUSE hx RECENT right middle lobe pneumonia HAD infiltrate posteriorly of the right middle lobe, slightly There is other likely fibrotic change of the HEMITHORACIES HX median sternotomy. There is coronary calcification. There is borderline enlarged pretracheal node as seen previously. 50 pound weight loss in 6 months, CAD s/p CABG 2014. clinically stable. Chronic systolic CHF with ICM; Recent EF 35%, DEcompensated Paroxysmal atrial flutter; hx DM2/HLP H/o substance abuse: meth in the past and marijuana. Potential opioid seeking. AICD in situ: medtronic. Interrogated and no abnormalities reported. 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 Chronic systolic CHF with ICM; Recent echo showed LV EF 35%, clinically well compensated. Continue current medical regimen. Paroxysmal atrial flutter; maintaining SR with amiodarone. DM2/HLP. H/o substance abuse: meth and marijuana. AICD in situ: medtronic, recent interrogation showed normal function. 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 due to severe substance abuse, high risk of complications with noncompliance PLAN CVC BED SERIAL ENZYMES NEG Cardiology consult OK WITH D/C SEE CARDIOLOGY NEXT WEEK DR ANDINO [facility] home meds needs substance abuse treatment program 37 min pt exam, chart review,D/C PLANNING > 50% of time spent with exam, chart review, pt care coordination Vitals Vitals Vital Signs Date Time Temp Pulse Resp B/P (MAP) Pulse Ox O2 Delivery O2 Flow Rate FiO2 07/13/18 08:17 18 Room Air 07/13/18 08:16 71 147/84 07/13/18 07:00 98.0 93 98.0 07/12/18 17:06 3.0 Physical Exam General: Alert, Oriented X3, Cooperative Heart: Regular rate Lungs: Clear, Other Abdomen: Normal bowel sounds, Soft, No tenderness Extremities: No cyanosis, No edema Skin: No significant lesion Brief Hospital Course Mr. Cervantes is a 57 old [sex] who presented with [CHEST PAIN ] CONDITION AT DISCHARGE: Improved Discharge Medications Current Medications Aspirin ([place]oli Aspirin) 325 mg 1X ONCE PO Last administered on 07/11/18 22:14; Start 07/11/18 at 22:00; Stop 07/11/18 at 22:01; Status DC Sodium Chloride 1,000 ml @ 1,000 mls/hr 1X ONCE IV Last administered on 07/11/18 22:14; Start 07/11/18 at 21:45; Stop 07/11/18 at 22:44; Status DC Ketorolac Tromethamine (Toradol 15mg Vial) 15 mg 1X ONCE IV Last administered on 07/11/18 22:15; Start 07/11/18 at 22:00; Stop 07/11/18 at 22:01; Status DC Neomycin/ Polymyxin/ Bacitracin (Triple Antibiotic Ointment) 1 pkt 1X ONCE TP Last administered on 07/11/18 22:15; Start 07/11/18 at 22:00; Stop 07/11/18 at 22:01; Status DC Ondansetron HCl (Zofran) 4 mg PRN Q8HRS PRN IV NAUSEA/VOMITING Last administered on 07/12/18 05:56; Start 07/11/18 at 22:30; Stop 07/12/18 at 22:29; Status DC Fentanyl Citrate (Fentanyl 2ml Vial) 25 mcg PRN Q2HR PRN IV PAIN Last administered on 07/13/18 13:05; Start 07/11/18 at 22:30 Insulin Human Lispro (HumaLOG) 0-5 UNITS TIDWMEALS SQ Last administered on 07/12/18 17:18; Start 07/12/18 at 08:00 Dextrose (Dextrose 50%-Water Syringe) 12.5 gm PRN Q15MIN PRN IV SEE COMMENTS; Start 07/11/18 at 22:30 Amiodarone HCl (Cordarone) 200 mg DAILY PO Last administered on 07/13/18 08:16; Start 07/12/18 at 09:00 Amitriptyline HCl (Elavil) 25 mg QHS PO Last administered on 07/12/18 21:52; Start 07/12/18 at 21:00 Docusate Sodium (Colace) 100 mg DAILY PO Last administered on 07/13/18 08:16; Start 07/12/18 at 09:00 Furosemide (Lasix) 20 mg DAILY PO Last administered on 07/13/18 08:16; Start 07/12/18 at 09:00 Gabapentin (Neurontin) 300 mg TID PO Last administered on 07/13/18 08:14; Start 07/12/18 at 09:00 Acetaminophen/ Hydrocodone Bitart (Lortab 10/325) 1 tab PRN BID PRN PO PAIN Last administered on 07/13/18 01:47; Start 07/11/18 at 23:30 Lactobacillus Rhamnosus (Culturelle) 1 cap BID PO Last administered on 07/13/18 08:14; Start 07/12/18 at 09:00 Levetiracetam (Keppra) 500 mg BID PO Last administered on 07/13/18 08:16; Start 07/12/18 at 09:00 Lisinopril (Prinivil) 10 mg DAILY PO Last administered on 07/13/18 08:15; Start 07/12/18 at 09:00 Metoclopramide HCl (Reglan) 10 mg QIDACHS PO Last administered on 07/13/18 08 :14; Start 07/12/18 at 07:30 Metoprolol Succinate (Toprol Xl) 100 mg BID PO Last administered on 07/13/18 08:15; Start 07/12/18 at 09:00 Potassium Chloride (Klor-Con) 10 meq DAILYWBKFT PO Last administered on 07/13/18 08:14; Start 07/12/18 at 08:00 Atorvastatin Calcium (Lipitor) 80 mg HS PO Last administered on 07/12/18 21:53; Start 07/12/18 at 21:00 Metformin HCl (Glucophage) 1,000 mg DAILYWSUP PO Last administered on 07/12/18 17:06; Start 07/12/18 at 17:00 Metoclopramide HCl (Reglan) 10 mg 1X ONCE PO Last administered on 07/11/18 23:59; Start 07/11/18 at 23:45; Stop 07/11/18 at 23:46; Status DC Metoprolol Succinate (Toprol Xl) 100 mg 1X ONCE PO Last administered on 07/11/18at 23:59; Start 07/11/18 at 23:45; Stop 07/11/18 at 23:46; Status DC Gabapentin (Neurontin) 300 mg 1X ONCE PO Last administered on 07/11/18at 23:59; Start 07/11/18 at 23:45; Stop 07/11/18 at 23:46; Status DC Amitriptyline HCl (Elavil) 25 mg 1X ONCE PO Last administered on 07/11/18at 23:59; Start 07/11/18 at 23:45; Stop 07/11/18 at 23:46; Status DC Levetiracetam (Keppra) 500 mg 1X ONCE PO Last administered on 07/11/18at 23:58; Start 07/11/18 at 23:45; Stop 07/11/18 at 23:46; Status DC Linagliptin (Tradjenta) 5 mg DAILYWSUP PO Last administered on 07/12/18at 17:06; Start 07/12/18 at 17:00 Alprazolam (Xanax) 1 mg TID PO Last administered on 07/13/18at 08:14; Start 07/12/18 at 14:00 Magnesium Sulfate 50 ml @ 25 mls/hr 1X ONCE IV Last administered on 07/12/18at 17:07; Start 07/12/18 at 16:45; Stop 07/12/18 at 18:44; Status DC Acetaminophen/ Hydrocodone Bitart (Lortab 10/325) 1 tab 1X ONCE PO Last administered on 07/13/18at 08:17; Start 07/13/18 at 08:00; Stop 07/13/18 at 08:01; Status DC Active Scripts Active Culturelle (Lactobacillus Rhamnosus Gg) 1 Each Cap.sprink 1 Cap PO BID 30 Days Cefdinir 300 Mg Capsule 300 Mg PO BID 10 Days Reported Keppra (Levetiracetam) 500 Mg Tablet 500 Mg PO BID Docusate Sodium 100 Mg Capsule 1 Cap PO DAILY Furosemide 20 Mg Tablet 20 Mg PO DAILY Hydrocodone-Apap 10-325 (Hydrocodone Bit/Acetaminophen) 1 Tab Tablet 1 Tab PO BID PRN Metoclopramide Hcl 10 Mg Tablet 10 Mg PO QIDACHS Janumet 50-1,000 Mg Tablet (Sitagliptin Phos/Metformin Hcl) 1 Each Tablet 2 Each PO DAILYWSUP Amitriptyline Hcl 25 Mg Tablet 1 Tab PO QHS Potassium Chloride 10 Meq Tablet.er 10 Meq PO DAILY Lisinopril 10 Mg Tablet 1 Tab PO DAILY Gabapentin (Gabapentin) 300 Mg Capsule 300 Mg PO TID Atorvastatin Calcium 80 Mg Tablet 1 Tab PO DAILY Metoprolol Succinate ( Xl ) (Metoprolol Succinate) 100 Mg Tab.er.24h 1 Tab PO BID Amiodarone Hcl 200 Mg Tablet 1 Tab PO DAILY Vital Signs Vital Signs Date Time Temp Pulse Resp B/P (MAP) Pulse Ox O2 Delivery O2 Flow Rate FiO2 07/13/18 15:00 98.6 70 12 157/103 (121) 96 Room Air 98.6 07/13/18 13:35 2.0 Labs Laboratory Tests Test 07/11/18 21:59 07/11/18 22:16 07/12/18 06:35 07/12/18 08:19 White Blood Count 12.8 x10^3/uL (4.0-11.0) 7.5 x10^3/uL (4.0-11.0) Red Blood Count 4.52 x10^6/uL (4.30-5.70) 3.69 x10^6/uL (4.30-5.70) Hemoglobin 13.3 g/dL (13.0-17.5) 11.4 g/dL (13.0-17.5) Hematocrit 40.6 % (39.0-53.0) 33.0 % (39.0-53.0) Mean Corpuscular Volume 90 fL (79-100) 89 fL (79-100) Mean Corpuscular Hemoglobin 29 pg (25-35) 31 pg (25-35) Mean Corpuscular Hemoglobin Concent 33 g/dL (31-37) 34 g/dL (31-37) Red Cell Distribution Width 14.4 % (11.5-14.5) 14.6 % (11.5-14.5) Platelet Count 268 x10^3/uL (140-400) 208 x10^3/uL (140-400) Neutrophils (%) (Auto) 89 % (31-73) 77 % (31-73) Lymphocytes (%) (Auto) 6 % (24-48) 15 % (24-48) Monocytes (%) (Auto) 4 % (0-9) 6 % (0-9) Eosinophils (%) (Auto) 1 % (0-3) 2 % (0-3) Basophils (%) (Auto) 1 % (0-3) 0 % (0-3) Neutrophils # (Auto) 11.4 x10^3uL (1.8-7.7) 5.8 x10^3uL (1.8-7.7) Lymphocytes # (Auto) 0.7 x10^3/uL (1.0-4.8) 1.1 x10^3/uL (1.0-4.8) Monocytes # (Auto) 0.5 x10^3/uL (0.0-1.1) 0.5 x10^3/uL (0.0-1.1) Eosinophils # (Auto) 0.1 x10^3/uL (0.0-0.7) 0.1 x10^3/uL (0.0-0.7) Basophils # (Auto) 0.1 x10^3/uL (0.0-0.2) 0.0 x10^3/uL (0.0-0.2) Segmented Neutrophils % 90 % (35-66) Band Neutrophils % 1 % (0-9) Lymphocytes % 5 % (24-48) Monocytes % 3 % (0-10) Basophils % 1 % (0-3) Platelet Estimate Adequate (ADEQUATE) Prothrombin Time 12.9 SEC (11.7-14.0) Prothromb Time International Ratio 1.0 (0.8-1.1) Sodium Level 138 mmol/L (136-145) 136 mmol/L (136-145) Potassium Level 4.9 mmol/L (3.5-5.1) 5.2 mmol/L (3.5-5.1) Chloride Level 99 mmol/L (98-107) 102 mmol/L (98-107) Carbon Dioxide Level 32 mmol/L (21-32) 27 mmol/L (21-32) Anion Gap 7 (6-14) 7 (6-14) Blood Urea Nitrogen 20 mg/dL (8-26) 28 mg/dL (8-26) Creatinine 1.0 mg/dL (0.7-1.3) 1.0 mg/dL (0.7-1.3) Estimated GFR (Cockcroft-Gault) 77.3 77.3 BUN/Creatinine Ratio 20 (6-20) Glucose Level 265 mg/dL (70-99) 237 mg/dL (70-99) Calcium Level 9.2 mg/dL (8.5-10.1) 8.1 mg/dL (8.5-10.1) Magnesium Level 1.3 mg/dL (1.8-2.4) Total Bilirubin 0.4 mg/dL (0.2-1.0) Aspartate Amino Transf (AST/SGOT) 39 U/L (15-37) Alanine Aminotransferase (ALT/SGPT) 41 U/L (16-63) Alkaline Phosphatase 171 U/L (46-116) Creatine Kinase 33 U/L (39-308) Creatine Kinase MB (Mass) 1.0 ng/mL (0.0-3.6) Creatine Kinase MB Relative Index % (0-4) Troponin I Quantitative < 0.017 ng/mL (0.000-0.055) 0.019 ng/mL (0.000-0.055) TC-Jtg-S-Type Natriuretic Peptide 1565 pg/mL (0-124) Total Protein 7.7 g/dL (6.4-8.2) Albumin 3.4 g/dL (3.4-5.0) Albumin/Globulin Ratio 0.8 (1.0-1.7) Lipase 190 U/L (73-393) Ethyl Alcohol Level < 10 mg/dL (0-10) Urine Collection Type Unknown Urine Color Yellow Urine Clarity Clear Urine pH 6.0 Urine Specific [place] 1.015 Urine Protein Negative mg/dL (NEG-TRACE) Urine Glucose (UA) 500 mg/dL (NEG) Urine Ketones (Stick) Negative mg/dL (NEG) Urine Blood Negative (NEG) Urine Nitrite Negative (NEG) Urine Bilirubin Negative (NEG) Urine Urobilinogen Dipstick 1.0 mg/dL (0.2 mg/dL) Urine Leukocyte Esterase Negative (NEG) Urine RBC 1-2 /HPF (0-2) Urine WBC 0 /HPF (0-4) Urine Squamous Epithelial Cells Occ /LPF Urine Bacteria 0 /HPF (0-FEW) Urine Opiates Screen Pos (NEG) Urine Methadone Screen Neg (NEG) Urine Barbiturates Neg (NEG) Urine Phencyclidine Screen Neg (NEG) Urine Amphetamine/Methamphetamine Neg (NEG) Urine Benzodiazepines Screen Pos (NEG) Urine Cocaine Screen Neg (NEG) Urine Cannabinoids Screen Pos (NEG) Urine Ethyl Alcohol Neg (NEG) Triglycerides Level 75 mg/dL (0-150) Cholesterol Level 99 mg/dL (0-200) LDL Cholesterol, Calculated 41 mg/dL (0-100) VLDL Cholesterol, Calculated 15 mg/dL (0-40) Non-HDL Cholesterol Calculated 56 mg/dL (0-129) HDL Cholesterol 43 mg/dL (40-60) Cholesterol/HDL Ratio 2.3 Glucose (Fingerstick) 236 mg/dL (70-99) Test 07/12/18 12:08 07/12/18 16:52 07/12/18 21:04 07/13/18 05:15 Glucose (Fingerstick) 165 mg/dL (70-99) 219 mg/dL (70-99) 164 mg/dL (70-99) White Blood Count 9.1 x10^3/uL (4.0-11.0) Red Blood Count 4.18 x10^6/uL (4.30-5.70) Hemoglobin 12.2 g/dL (13.0-17.5) Hematocrit 37.1 % (39.0-53.0) Mean Corpuscular Volume 89 fL (79-100) Mean Corpuscular Hemoglobin 29 pg (25-35) Mean Corpuscular Hemoglobin Concent 33 g/dL (31-37) Red Cell Distribution Width 15.0 % (11.5-14.5) Platelet Count 257 x10^3/uL (140-400) Neutrophils (%) (Auto) 81 % (31-73) Lymphocytes (%) (Auto) 11 % (24-48) Monocytes (%) (Auto) 6 % (0-9) Eosinophils (%) (Auto) 2 % (0-3) Basophils (%) (Auto) 1 % (0-3) Neutrophils # (Auto) 7.3 x10^3uL (1.8-7.7) Lymphocytes # (Auto) 1.0 x10^3/uL (1.0-4.8) Monocytes # (Auto) 0.5 x10^3/uL (0.0-1.1) Eosinophils # (Auto) 0.2 x10^3/uL (0.0-0.7) Basophils # (Auto) 0.0 x10^3/uL (0.0-0.2) Sodium Level 139 mmol/L (136-145) Potassium Level 4.8 mmol/L (3.5-5.1) Chloride Level 103 mmol/L (98-107) Carbon Dioxide Level 28 mmol/L (21-32) Anion Gap 8 (6-14) Blood Urea Nitrogen 22 mg/dL (8-26) Creatinine 0.8 mg/dL (0.7-1.3) Estimated GFR (Cockcroft-Gault) 100.0 Glucose Level 147 mg/dL (70-99) Calcium Level 9.0 mg/dL (8.5-10.1) Phosphorus Level 4.3 mg/dL (2.6-4.7) Albumin 2.8 g/dL (3.4-5.0) Test 07/13/18 08:00 07/13/18 12:42 Glucose (Fingerstick) 137 mg/dL (70-99) 115 mg/dL (70-99) Laboratory Tests Test 07/12/18 16:52 07/12/18 21:04 07/13/18 05:15 07/13/18 08:00 Glucose (Fingerstick) 219 mg/dL (70-99) 164 mg/dL (70-99) 137 mg/dL (70-99) White Blood Count 9.1 x10^3/uL (4.0-11.0) Red Blood Count 4.18 x10^6/uL (4.30-5.70) Hemoglobin 12.2 g/dL (13.0-17.5) Hematocrit 37.1 % (39.0-53.0) Mean Corpuscular Volume 89 fL (79-100) Mean Corpuscular Hemoglobin 29 pg (25-35) Mean Corpuscular Hemoglobin Concent 33 g/dL (31-37) Red Cell Distribution Width 15.0 % (11.5-14.5) Platelet Count 257 x10^3/uL (140-400) Neutrophils (%) (Auto) 81 % (31-73) Lymphocytes (%) (Auto) 11 % (24-48) Monocytes (%) (Auto) 6 % (0-9) Eosinophils (%) (Auto) 2 % (0-3) Basophils (%) (Auto) 1 % (0-3) Neutrophils # (Auto) 7.3 x10^3uL (1.8-7.7) Lymphocytes # (Auto) 1.0 x10^3/uL (1.0-4.8) Monocytes # (Auto) 0.5 x10^3/uL (0.0-1.1) Eosinophils # (Auto) 0.2 x10^3/uL (0.0-0.7) Basophils # (Auto) 0.0 x10^3/uL (0.0-0.2) Sodium Level 139 mmol/L (136-145) Potassium Level 4.8 mmol/L (3.5-5.1) Chloride Level 103 mmol/L (98-107) Carbon Dioxide Level 28 mmol/L (21-32) Anion Gap 8 (6-14) Blood Urea Nitrogen 22 mg/dL (8-26) Creatinine 0.8 mg/dL (0.7-1.3) Estimated GFR (Cockcroft-Gault) 100.0 Glucose Level 147 mg/dL (70-99) Calcium Level 9.0 mg/dL (8.5-10.1) Phosphorus Level 4.3 mg/dL (2.6-4.7) Albumin 2.8 g/dL (3.4-5.0) Test 07/13/18 12:42 Glucose (Fingerstick) 115 mg/dL (70-99) Allergies Allergies Coded Allergies Type Severity Reaction Last Updated Verified Penicillins Allergy Intermediate 06/25/18 Yes onion Allergy Intermediate 06/25/18 Yes Disposition/Orders: D/C to Home Patient Instructions D/C PLANNING 37 MIN SARAH RUDD MD July 13, 2018 16:19
--- NOTE | 2018-07-13 16:21 | DISCH ---
DISCHARGE INSTRUCTIONS Condition on Discharge Condition on Discharge: Guarded Activity After Discharge Activity Instructions for Disc: Activity as tolerated Bathing Instructions: Shower-keep dressing dry Lifting Instructions after Dis: No heavy lifting, No pulling or pushing Exercise Instruction after Dis: Walk 10 min, 3 x per day, Progress as tolerated Driving Instructions after Dis: Do not drive, Do not drive today Weight Bearing Status after Di: As tolerated Diet after Discharge Diet after Discharge: Cardiac, Diabetic No Calorie Level Diet Texture: Regular Liquid Texture: Thin Liquid Swallowing Supervision: None needed Wound Incision Care Wound/Incision Care: Change dressing Checks after Discharge Checks after discharge: Check blood press - daily, Check blood sugar, ac/hs Contacting the DR. after DC Call your doctor for: If your condition worsens Treatment/Equipment after DC Adaptive Equipment Issued: None Discharge Respiratory Equipmen: Oxygen SARAH RUDD MD July 13, 2018 16:21
[2018-07-13] MEDS: LINAGLIPTIN 5 MG TABLET PO SCH (16:53)
[2018-07-13] MEDS: metFORMIN 500 MG TABLET PO SCH (16:53)
--- NOTE | 2018-07-13 17:24 | NUR ---
Discharge instructions reviewed with patient. Patient verbalizes understanding. Patient will be getting picked up by cab.
== END 2018-07-13 18:10 | disposition home or self-care (01) | DRG 313 ==
LOC: ER 21:04 → 2 NORTH 22:18 → OBSVTOIN 22:18
PROVIDERS: ADMIT Family Medicine; ATTEND Family Medicine
DX: R07.89 Other chest pain (principal); I50.22 Chronic systolic (congestive) heart failure; E11.9 Type 2 diabetes mellitus without complications; E78.5 Hyperlipidemia, unspecified; F12.90 Cannabis use, unspecified, uncomplicated; F15.10 Other stimulant abuse, uncomplicated; F17.210 Nicotine dependence, cigarettes, uncomplicated; I11.0 Hypertensive heart disease with heart failure; I25.10 Atherosclerotic heart disease of native coronary artery without angina pectoris; I25.5 Ischemic cardiomyopathy; I48.0 Paroxysmal atrial fibrillation; I25.2 Old myocardial infarction; M19.90 Unspecified osteoarthritis, unspecified site; Z82.49 Family history of ischemic heart disease and other diseases of the circulatory system; Z86.73 Personal history of transient ischemic attack (TIA), and cerebral infarction without residual deficits; Z90.49 Acquired absence of other specified parts of digestive tract; Z91.19 Patient's noncompliance with other medical treatment and regimen; Z95.1 Presence of aortocoronary bypass graft; Z95.5 Presence of coronary angioplasty implant and graft; Z95.810 Presence of automatic (implantable) cardiac defibrillator; Z86.718 Personal history of other venous thrombosis and embolism
CPT/HCPCS: 36415; 71045; 80048; 80053; 80061; 80069; 80307; 81001; 82553; 82962; 83690; 83735; 83880; 84484; 85007; 85025; 85610; 93005; 96361; 96374; G0480; J1815; J1885; J2405; J3010; J3475; J7030; J8597; 99285-25

== ENCOUNTER 2018-08-12 06:38 | Emergency (ER) | payer MEDICAID ==
[~2018-08-12] VITALS: Ht 182.9 cm; Wt 73.0 kg
[2018-08-12] MEDS ORDERED: ONDANSETRON PF 4 MG/2 ML VIAL. IV ONE ×2 (07:00→09:30)
[2018-08-12] MEDS ORDERED: KETOROLAC 30 MG/ML VIAL. IV ONE (07:00)
[2018-08-12] MEDS ORDERED: IV NORMAL SALINE 500ML BAG 500 ML IV ONE (07:15)
[2018-08-12 07:23] LABS: BASO % 0 % (0-3); BILIRUBIN,URINE NEGATIVE (NEG); CLARITY,URINE CLOUDY; COLOR,URINE YELLOW; EOS # 0.1 x10^3/uL (0.0-0.7); EOS % 1 % (0-3); HEMATOCRIT 43.9 % (39.0-53.0); HEMOGLOBIN 14.7 g/dL (13.0-17.5); LYMPH # 0.9 x10^3/uL (1.0-4.8); LYMPH % 10 % (24-48); MEAN CORPUSCULAR HEMOGLOBIN 30 pg (25-35); MEAN CORPUSCULAR HGB CONC 33 g/dL (31-37); MEAN CORPUSCULAR VOLUME 89 fL (79-100); MONO # 0.6 x10^3/uL (0.0-1.1); MONO % 6 % (0-9); NEUT # 7.3 x10^3uL (1.8-7.7); NEUT % 82 % (31-73); NITRITE,URINE NEGATIVE (NEG); PH,URINE 6.5; PLATELET COUNT 164 x10^3/uL (140-400); PROTEIN,URINE 30 mg/dL (NEG-TRACE); RED BLOOD COUNT 4.94 x10^6/uL (4.30-5.70); RED CELL DISTRIBUTION WIDTH 15.3 % (11.5-14.5); WHITE BLOOD COUNT 8.9 x10^3/uL (4.0-11.0)
[2018-08-12 07:31] LABS: CALCIUM 9.9 mg/dL (8.5-10.1); CREATININE 1.2 mg/dL (0.7-1.3); GFR 62.6; POTASSIUM 5.1 mmol/L (3.5-5.1)
[2018-08-12 07:36] LABS: AMPHETAMINE/METHAMPHETAMINE NEG (NEG); BARBITURATES NEG (NEG); BENZODIAZEPINES NEG (NEG); CANNABINOIDS POS (NEG); COCAINE NEG (NEG); METHADONE NEG (NEG); OPIATES NEG (NEG); PHENCYCLIDINE NEG (NEG)
[2018-08-12 07:38] LABS: ALBUMIN 4.1 g/dL (3.4-5.0); TOTAL BILIRUBIN 0.6 mg/dL (0.2-1.0); TOTAL PROTEIN 8.4 g/dL (6.4-8.2)
[2018-08-12] MEDS ORDERED: oxyCODONE/APAP 10/325 1 TAB TABLET PO ONE (07:45)
[2018-08-12 07:47] LABS: BACTERIA,URINE 0 /HPF (0-FEW); RBC,URINE 0 /HPF (0-2); SQUAMOUS EPITHELIAL CELL,UR FEW /LPF; WBC,URINE 0 /HPF (0-4)
--- NOTE | 2018-08-12 08:08 | PHYS DOC ---
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 He states he got out of the shower this morning slipped and fell backwards against the sink sliding down to the floor. He did not hit his head or lose consciousness. He does state that he has some pain radiating into his right buttocks. He also states that he hit his right elbow and has a scrape in that area. He states that he is able to move his elbow through full range of motion. He denies any neck pain. Also, he denies any preceding symptoms such as palpitations or chest pain.[] Review of Systems Review of Systems Constitutional: Denies fever or chills [] Eyes: Denies change in visual acuity, redness, or eye pain [] HENT: Denies nasal congestion or sore throat [] Respiratory: Denies cough or shortness of breath [] Cardiovascular: No additional information not addressed in HPI [] GI: Denies abdominal pain, nausea, vomiting, bloody stools or diarrhea [] : Denies dysuria or hematuria [] Musculoskeletal: Per history of present illness[] Integument: Denies rash or skin lesions [] Neurologic: Denies headache, focal weakness or sensory changes [] Endocrine: Denies polyuria or polydipsia [] All other systems were reviewed and found to be within normal limits, except as documented in this note. Current Medications Current Medications Current Medications Medications (Trade) Dose Ordered Sig/Doris Start Time Stop Time Status Last Admin Dose Admin Ketorolac Tromethamine (Toradol 30mg Vial) 30 mg 1X ONCE 08/12/18 07:00 08/12/18 07:03 DC 08/12/18 07:14 30 MG Ondansetron HCl (Zofran) 4 mg 1X ONCE 08/12/18 07:00 08/12/18 07:03 DC 08/12/18 07:12 4 MG Oxycodone/ Acetaminophen (Percocet 10/325) 1 tab 1X ONCE 08/12/18 07:45 08/12/18 07:48 DC 08/12/18 07:49 1 TAB Sodium Chloride 500 ml @ 500 mls/hr 1X ONCE 08/12/18 07:15 08/12/18 08:14 DC 08/12/18 07:10 500 MLS/HR Allergies Allergies Allergies Coded Allergies Type Severity Reaction Last Updated Verified Penicillins Allergy Intermediate 06/25/18 Yes onion Allergy Intermediate 06/25/18 Yes Physical Exam Physical Exam Constitutional: Well developed, well nourished, no significant distress, non- toxic appearance. [] HENT: Normocephalic, atraumatic, bilateral external ears normal, oropharynx moist, no oral exudates, nose normal. [] Eyes: PERRLA, EOMI, conjunctiva normal, no discharge. [] Neck: Normal range of motion, no tenderness, supple, no stridor. [] Cardiovascular:Heart rate regular rhythm, no murmur [] Lungs & Thorax: Bilateral breath sounds clear to auscultation [] Abdomen: Bowel sounds normal, soft, no tenderness, no masses, no pulsatile masses. [] Skin: Warm, dry, no erythema, no rash. [] Back: Small linear contusion extending from T10-L2 on his right back. I do not appreciate any midline tenderness or deformity[] Extremities: No tenderness, no cyanosis, no clubbing, ROM intact, no edema, small abrasion right elbow with full range of motion no swelling no deformity. [] Neurologic: Alert and oriented X 3, normal motor function, normal sensory function, no focal deficits noted. [] Psychologic: Extremely flat affect[] Current Patient Data Vital Signs Vital Signs Date Time Temp Pulse Resp B/P (MAP) Pulse Ox O2 Delivery O2 Flow Rate FiO2 08/12/18 07:49 18 98 Room Air 08/12/18 06:42 98.2 79 186/114 (138) 98.2 Lab Values Laboratory Tests Test 08/12/18 06:45 White Blood Count 8.9 x10^3/uL (4.0-11.0) Red Blood Count 4.94 x10^6/uL (4.30-5.70) Hemoglobin 14.7 g/dL (13.0-17.5) Hematocrit 43.9 % (39.0-53.0) Mean Corpuscular Volume 89 fL (79-100) Mean Corpuscular Hemoglobin 30 pg (25-35) Mean Corpuscular Hemoglobin Concent 33 g/dL (31-37) Red Cell Distribution Width 15.3 % (11.5-14.5) H Platelet Count 164 x10^3/uL (140-400) Neutrophils (%) (Auto) 82 % (31-73) H Lymphocytes (%) (Auto) 10 % (24-48) L Monocytes (%) (Auto) 6 % (0-9) Eosinophils (%) (Auto) 1 % (0-3) Basophils (%) (Auto) 0 % (0-3) Neutrophils # (Auto) 7.3 x10^3uL (1.8-7.7) Lymphocytes # (Auto) 0.9 x10^3/uL (1.0-4.8) L Monocytes # (Auto) 0.6 x10^3/uL (0.0-1.1) Eosinophils # (Auto) 0.1 x10^3/uL (0.0-0.7) Basophils # (Auto) 0.0 x10^3/uL (0.0-0.2) Urine Collection Type Unknown Urine Color Yellow Urine Clarity Cloudy Urine pH 6.5 Urine Specific [place] 1.020 Urine Protein 30 mg/dL (NEG-TRACE) Urine Glucose (UA) >=1000 mg/dL (NEG) Urine Ketones (Stick) Negative mg/dL (NEG) Urine Blood Trace (NEG) Urine Nitrite Negative (NEG) Urine Bilirubin Negative (NEG) Urine Urobilinogen Dipstick 1.0 mg/dL (0.2 mg/dL) Urine Leukocyte Esterase Negative (NEG) Urine RBC 0 /HPF (0-2) Urine WBC 0 /HPF (0-4) Urine Squamous Epithelial Cells Few /LPF Urine Bacteria 0 /HPF (0-FEW) Sodium Level 137 mmol/L (136-145) Potassium Level 5.1 mmol/L (3.5-5.1) Chloride Level 100 mmol/L (98-107) Carbon Dioxide Level 29 mmol/L (21-32) Anion Gap 8 (6-14) Blood Urea Nitrogen 22 mg/dL (8-26) Creatinine 1.2 mg/dL (0.7-1.3) Estimated GFR (Cockcroft-Gault) 62.6 BUN/Creatinine Ratio 18 (6-20) Glucose Level 262 mg/dL (70-99) H Calcium Level 9.9 mg/dL (8.5-10.1) Total Bilirubin 0.6 mg/dL (0.2-1.0) Aspartate Amino Transferase (AST) 46 U/L (15-37) H Alanine Aminotransferase (ALT) 51 U/L (16-63) Alkaline Phosphatase 141 U/L (46-116) H Total Protein 8.4 g/dL (6.4-8.2) H Albumin 4.1 g/dL (3.4-5.0) Albumin/Globulin Ratio 1.0 (1.0-1.7) Urine Opiates Screen Neg (NEG) Urine Methadone Screen Neg (NEG) Urine Barbiturates Neg (NEG) Urine Phencyclidine Screen Neg (NEG) Urine Amphetamine/Methamphetamine Neg (NEG) Urine Benzodiazepines Screen Neg (NEG) Urine Cocaine Screen Neg (NEG) Urine Cannabinoids Screen Pos (NEG) Ethyl Alcohol Level < 10 mg/dL (0-10) Urine Ethyl Alcohol Neg (NEG) Laboratory Tests 08/12/18 06:45 Laboratory Tests 08/12/18 06:45 EKG EKG [] Radiology/Procedures Radiology/Procedures [] Impressions: PROCEDURE: CT THORACIC SPINE WO CONTRAST CT thoracic and lumbar spine without contrast Indication: Trauma Technique: Noncontrast CT imaging was performed of the thoracic and lumbar spine, multiplanar reconstruction images submitted. One or more of the following individualized dose reduction techniques were utilized for this examination: 1. Automated exposure control 2. Adjustment of the mA and/or kV according to patient size 3. Use of iterative reconstruction technique. Comparison: CT chest abdomen pelvis exams June 21, 2018 Thoracic spine: Findings: Thoracic vertebral body stature and AP alignment are unchanged. No acute thoracic spine fracture is identified. There is multilevel spondylosis. Osseous neural foramina are not significantly narrowed. There is very mild reverse S-shaped curvature of the mid to superior thoracic spine. There is again infiltrate of the right lower lobe and posteriorly of the right upper lobe, somewhat increased. There is very small right pleural effusion. There is also some dependent likely atelectasis of the lower lobes bilaterally. There is coronary calcification. Heart is enlarged. There is emphysema. There is again some mediastinal lymphadenopathy, dominant precarinal node about 1.4 cm short axis dimension somewhat larger as previously about 1.2 cm. Right pretracheal node measures about 1 cm short axis dimension versus previously about 0.8 cm. IMPRESSION: 1. No acute thoracic spine fracture is identified. 2. The is persistent, somewhat increased right lower lobe and posterior right upper lobe infiltrate, small right pleural effusion. Lungs are not fully evaluated on this exam. There is also increased nonspecific mediastinal lymphadenopathy. Potentially PET CT could be beneficial to assess for hypermetabolic activity. If not performed, follow-up such as in 3 months after treatment is advised given change. There is emphysema. Lumbar spine: FINDINGS: No acute lumbar spine fracture is identified. Lumbar vertebral body stature is unchanged. There is similar negligible anterior spondylolisthesis L4-5. There is [id number] degenerative disc disease at L4-5. There is multilevel facet degenerative change and spondylosis. There is bulge at L4-5, probable mild narrowing of the far left lateral recess. There is moderate narrowing of the left L4-5 neural foramen by disc osteophyte complex and facet, minimal narrowing of the right at this level. There is also likely mild neural foramina compromise bilaterally at L3-4. There is scattered calcified plaque abdominal aorta and iliac arteries. IMPRESSION: 1. No acute lumbar spine fracture is identified. 2. There is degenerative disc disease and negligible anterior spondylolisthesis at L4-5. There is moderate narrowing of the left L4-5 neural foramen. Course & Med Decision Making Course & Med Decision Making Pertinent Labs and Imaging studies reviewed. (See chart for details) [ED course: Evaluation reveals a 57-year-old male that looks much older than his stated age with a thoracolumbar contusion. A CT scan showed some concerning lymphadenopathy in his lungs. I spoke with him at length about this and told him the importance of following with his primary care physician. I will also give him the number for our silk finisher. Of note, I did have to wake the patient up to communicate with him about his discharge planning.] Dragon Disclaimer Dragon Disclaimer This electronic medical record was generated, in whole or in part, using a voice recognition dictation system. Departure Departure Impression: Primary Impression: Contusion of back wall of thorax Additional Impression: Contusion of lower back Disposition: HOME, SELF-CARE Condition: IMPROVED Referrals: RC ELIZALDE MD This is a lung specialist. Please call him today to schedule follow-up appointment Patient Instructions: Back Pain, Adult Additional Instructions: He need to follow with your primary care physician this week to discuss the findings on your CT scans. I also think it's of significant importance to follow up with a lung specialist. I have provided you with Dr. Elizalde's information. Scripts Naproxen (NAPROXEN) 500 Mg Tablet 1 TAB PO BID PRN for PAIN, #30 TAB 1 Refill Prov: TITUS SANDHU DO 08/12/18 Problem Qualifiers Primary Impression: Contusion of back wall of thorax Encounter type: initial encounter Laterality: right Qualified Codes: S20.221A - Contusion of right back wall of thorax, initial encounter Additional Impression: Contusion of lower back Encounter type: initial encounter Qualified Codes: S30.0XXA - Contusion of lower back and pelvis, initial encounter TITUS SANDHU DO Aug 12, 2018 08:08
--- NOTE | 2018-08-12 08:27 | RAD ---
CT thoracic and lumbar spine without contrast Indication: Trauma Technique: Noncontrast CT imaging was performed of the thoracic and lumbar spine, multiplanar reconstruction images submitted. One or more of the following individualized dose reduction techniques were utilized for this examination: 1. Automated exposure control 2. Adjustment of the mA and/or kV according to patient size 3. Use of iterative reconstruction technique. Comparison: CT chest abdomen pelvis exams June 21, 2018 Thoracic spine: Findings: Thoracic vertebral body stature and AP alignment are unchanged. No acute thoracic spine fracture is identified. There is multilevel spondylosis. Osseous neural foramina are not significantly narrowed. There is very mild reverse S-shaped curvature of the mid to superior thoracic spine. There is again infiltrate of the right lower lobe and posteriorly of the right upper lobe, somewhat increased. There is very small right pleural effusion. There is also some dependent likely atelectasis of the lower lobes bilaterally. There is coronary calcification. Heart is enlarged. There is emphysema. There is again some mediastinal lymphadenopathy, dominant precarinal node about 1.4 cm short axis dimension somewhat larger as previously about 1.2 cm. Right pretracheal node measures about 1 cm short axis dimension versus previously about 0.8 cm. IMPRESSION: 1. No acute thoracic spine fracture is identified. 2. The is persistent, somewhat increased right lower lobe and posterior right upper lobe infiltrate, small right pleural effusion. Lungs are not fully evaluated on this exam. There is also increased nonspecific mediastinal lymphadenopathy. Potentially PET CT could be beneficial to assess for hypermetabolic activity. If not performed, follow-up such as in 3 months after treatment is advised given change. There is emphysema. Lumbar spine: FINDINGS: No acute lumbar spine fracture is identified. Lumbar vertebral body stature is unchanged. There is similar negligible anterior spondylolisthesis L4-5. There is [id number] degenerative disc disease at L4-5. There is multilevel facet degenerative change and spondylosis. There is bulge at L4-5, probable mild narrowing of the far left lateral recess. There is moderate narrowing of the left L4-5 neural foramen by disc osteophyte complex and facet, minimal narrowing of the right at this level. There is also likely mild neural foramina compromise bilaterally at L3-4. There is scattered calcified plaque abdominal aorta and iliac arteries. IMPRESSION: 1. No acute lumbar spine fracture is identified. 2. There is degenerative disc disease and negligible anterior spondylolisthesis at L4-5. There is moderate narrowing of the left L4-5 neural foramen. Electronically signed by: Kayode Campos MD (08/12/2018 8:24 AM) [email or web address]
[2018-08-12 08:45] VITALS: BP 158/87
[2018-08-12] MEDS ORDERED: NAPR-514 PO (08:54)
== END 2018-08-12 09:20 | disposition home or self-care (01) ==
LOC: ER 06:38
DX: S20.221A Contusion of right back wall of thorax, initial encounter (principal); S30.0XXA Contusion of lower back and pelvis, initial encounter; I25.10 Atherosclerotic heart disease of native coronary artery without angina pectoris; E11.9 Type 2 diabetes mellitus without complications; I25.2 Old myocardial infarction; Z86.73 Personal history of transient ischemic attack (TIA), and cerebral infarction without residual deficits; Z90.89 Acquired absence of other organs; Z90.49 Acquired absence of other specified parts of digestive tract; Z95.0 Presence of cardiac pacemaker; Z95.1 Presence of aortocoronary bypass graft; Z88.0 Allergy status to penicillin; Z91.018 Allergy to other foods; W01.198A Fall on same level from slipping, tripping and stumbling with subsequent striking against other object, initial encounter; Y93.89 Activity, other specified; Y92.89 Other specified places as the place of occurrence of the external cause; Y99.8 Other external cause status
CPT/HCPCS: 36415; 72128; 72131; 80053; 80307; 81001; 85025; 96374; 96375; 99285; G0480; J1885; J2405; J7040